=== PATIENT | female | born 1945 | race Asian ===

== ENCOUNTER 2018-06-17 05:12 | Inpatient (IN) | payer MEDICARE ==
[~2018-06-17] VITALS: Ht 157.5 cm; Wt 57.4 kg
[2018-06-17] VITALS (7 sets, daily range): BP systolic 123–153; BP diastolic 83–94
--- NOTE | 2018-06-17 05:15 | NUR ---
ED Nurse Note: Patient JEANNIE RA 30 from home c/o SOB since yesterday. SpO2 was at 92% on RA, EMS placed her on 4lpm via n/c and SpO2 at 97% now. Patient reports abdominal pain at her surgery site from last week. pt daughter on bedside. pt is yoruba speaking. noted with surgical incision on the abdomen. denies any pain. pt connected to monitor and vs recorded. seen by ermnura. rt on bedside doing the nebulization. will continue to monitor.
[2018-06-17] MEDS ORDERED: NORCO 5-325 TA1 EACH ORAL (05:18)
[2018-06-17] MEDS ORDERED: MS CONTIN100 MG ORAL (05:18)
[2018-06-17] MEDS ORDERED: Albuterol ud Inhalation HHN ONE (05:30)
--- NOTE | 2018-06-17 05:35 | NUR ---
ED Nurse Note: laboratory mechanical technician on bedside.
[2018-06-17 05:47] LABS: HEMATOCRIT 33.8 % (37.0-47.0); HEMOGLOBIN 11.1 G/DL (12.0-16.0); MEAN CORPUSCULAR VOLUME 89 FL (80-99); PLATELET COUNT 860 K/UL (150-450); WHITE BLOOD COUNT 12.4 K/UL (4.8-10.8)
[2018-06-17 05:59] LABS: BILIRUBIN, URINE 2+ (NEGATIVE); GLUCOSE, URINE (UA) NEGATIVE (NEGATIVE); KETONES,URINE 2+ (NEGATIVE); LEUKOCYTE ESTERASE ,URINE 1+ (NEGATIVE); NITRITE,URINE POSITIVE (NEGATIVE); PH,URINE 5 (4.5-8.0); PROTEIN,URINE 2+ (NEGATIVE); UROBILINOGEN,URINE 4 MG/DL (0.0-1.0)
[2018-06-17 06:02] LABS: ANION GAP 6 mmol/L (5-15); BLOOD UREA NITROGEN 14 mg/dL (7-18); CALCIUM 8.3 MG/DL (8.5-10.1); CARBON DIOXIDE 28 MMOL/L (21-32); CHLORIDE 97 MMOL/L (98-107); CREATININE 0.4 MG/DL (0.55-1.30); POTASSIUM 4.3 MMOL/L (3.5-5.1); SODIUM 131 MMOL/L (136-145)
--- NOTE | 2018-06-17 06:22 | Emergency Room Report ---
History of Present Illness General Chief Complaint: Dyspnea/Respdistress Source: Patient, Family Member Present Illness HPI This is a unfortunate 72-year-old Upper Sorbian speaking female with recent history of ovarian cancer with metastatic spread. She had surgery done on just here at [facility]. She is currently undergoing chemotherapy therapy. She also has pleural effusion bilaterally required thoracentesis with the last admission. She presents with chief complaint of shortness of breath. His is chronic but worse in the last couple days. Worse tonight. Per EMS observation was low 90% on room air. Better after oxygen. Worse with lying flat. Denies any fever or chills. Has chronic cough. Allergies: Coded Allergies: No Known Allergies (Unverified , 06/17/18) Patient History Past Medical History: see triage record, old chart reviewed Past Surgical History: other Pertinent Family History: none Social History: Denies: smoking Last Menstrual Period: CONCEPCION Now: No Immunizations: other Reviewed Nursing Documentation: PMH: Agreed; PSxH: Agreed Nursing Documentation-PMH Past Medical History: No History, Except For Hx Cardiac Problems: Yes Hx Cancer: Yes - ovarian Review of Systems Eye: Denies: eye pain, blurred vision ENT: Denies: ear pain, nose congestion, throat swelling Respiratory: Reports: shortness of breath; Denies: cough Cardiovascular: Denies: chest pain, palpitations Gastrointestinal: Reports: abdominal pain; Denies: diarrhea, nausea, vomiting Musculoskeletal: Denies: back pain, joint pain Skin: Denies: rash Neurological: Denies: headache, numbness Endocrine: Denies: increased thirst, increased urine Hematologic/Lymphatic: Denies: easy bruising All Other Systems: negative except mentioned in HPI Physical Exam Vital Signs Date Time Temp Pulse Resp B/P (MAP) Pulse Ox O2 Delivery O2 Flow Rate FiO2 06/17/18 05:12 117 22 138/89 97 Nasal Cannula 4.0 06/17/18 05:15 98.2 06/17/18 05:25 28 vitals with tachycardia Sp02 EP Interpretation: abnormal General Appearance: mild distress, cachetic, Chronically Ill Head: normocephalic, atraumatic Eyes: bilateral eye PERRL, bilateral eye EOMI ENT: hearing grossly normal, normal pharynx Neck: full range of motion, supple, no meningismus Respiratory: chest non-tender, respiratory distress, decreased breath sounds, rales Cardiovascular #1: regular rate, rhythm, no murmur, tachycardia Gastrointestinal: normal bowel sounds, non tender, no mass, no organomegaly, no bruit, non-distended, other - Abdominal incision site clean. Musculoskeletal: back normal, normal range of motion Neurologic: alert, oriented x3 Psychiatric: mood/affect normal Skin: warm/dry Procedures Critical Care Time Critical Care Time Critical care is mandated in this patient who presented with respiratory distress from large effusion. Patient require my urgent intervention to attenuate the risks of respiratory collapse which may lead to cardiovascular collapse and . Critical care time is 35 minutes excluding any reportable procedure. Critical care time included evaluation, multiple reevaluation, looking at old charts, interpreting laboratory and diagnostic data, discussing case with patient and family and consultants, and charting. Medical Decision Making Diagnostic Impression: Primary Impression: Respiratory distress Additional Impressions: Pleural effusion Ovarian carcinoma Qualified Codes: C56.9 - Malignant neoplasm of unspecified ovary ER Course Patient presents with respiratory distress secondary to pleural effusion bilaterally. She also has metastatic ovarian carcinoma. Even though BNP is low , chest x-ray showed a large pleural effusion. Is similar to previous admission. Patient more comfortable on oxygen. Will admit for further workup. I contacted Dr. Marr for admission. CT chest pending on this patient Lab Results Impression labs unremarkable EKG Diagnostic Results Rate: tachycardiac Rhythm: NSR ST Segments: other - NSST changes Rhythm Strip Diag. Results Rhythm Strip Time: 06:38 EP Interpretation: yes Rate: 120 Rhythm: NSR, no PVC's, no ectopy Chest X-Ray Diagnostic Results Chest X-Ray Diagnostic Results : Chest X-Ray Ordered: Yes # of Views/Limited/Complete: 1 View Indication: Shortness of Breath EP Interpretation: Yes Interpretation: no pneumothorax, other - Bilateral pleural effussion Last Vital Signs Date Time Temp Pulse Resp B/P (MAP) Pulse Ox O2 Delivery O2 Flow Rate FiO2 06/17/18 05:36 119 20 97 Nasal Cannula 2.0 28 06/17/18 05:15 98.2 138/89 Status: improved Disposition: ADMITTED INPATIENT Condition: Serious Referrals: NON PHYSICIAN (PCP) Juan David Bryan MD Jun 17, 2018 06:22
[2018-06-17 06:25] LABS: APPEARANCE,URINE SLIGHTLY CLOUDY; COLOR,URINE AMBER
[2018-06-17 06:31] LABS: ALANINE AMINOTRANSFERASE 53 U/L (12-78); ALBUMIN 1.3 G/DL (3.4-5.0); ALBUMIN/GLOBULIN RATIO 0.4 (1.0-2.7); ALKALINE PHOSPHATASE 1268 U/L (46-116); ASPARTATE AMINO TRANSFERASE 103 U/L (15-37); BILIRUBIN,TOTAL 1.1 MG/DL (0.2-1.0); CKMB 0.7 NG/ML (0.0-3.6); CREATINE KINASE 22 U/L (26-308)
[2018-06-17 06:39] LABS: BILIRUBIN,DIRECT 0.8 MG/DL (0.0-0.3)
[2018-06-17] MEDS ORDERED: Isovue-370 150ml vial INJ PRN (06:45)
--- NOTE | 2018-06-17 07:04 | NUR ---
ED Nurse Note: pt went to ct with tech.
--- NOTE | 2018-06-17 08:04 | NUR ---
ED Nurse Note: Report given to Ventura KIRBY of telemetry unit. Room is not ready yet. ER Charge nurse Cary so.
--- NOTE | 2018-06-17 08:48 | NUR ---
NURSE NOTES: Patient is transferred from ED and received report from [facility]. Patient is on stable condition. on O2 3L/min via NC. Inventory check done. No belongings noted. Daughter is at the bedside. Will continue to monitor.
--- NOTE | 2018-06-17 09:25 | NUR ---
NURSE NOTES: Talked with Dr. Stephenson. Admission orders read back and carried out.
[2018-06-17] MEDS ORDERED: Acetaminophen 500mg (ES) tab ORAL PRN (09:30)
[2018-06-17] MEDS ORDERED: Albuterol/Ipratropium 3ml neb HHN PRN (09:30)
--- NOTE | 2018-06-17 09:37 | Diagnostic Imaging Report ---
Indication: Chest pain Technique: Continuous helical transaxial imaging of the chest was obtained from the thoracic inlet to the upper abdomen during rapid intravenous contrast administration. Arterial phase of enhancement obtained. Coronal 2-D reformats were also obtained and maximum intensity projection images in multiple planes. Study obtained in a Siemens sensation [address] Automatic Exposure Control was utilized. Total Dose length Product (DLP): 836.[address] Dose Index Volume (CTDIvol): 25.79 mGy Comparison: None Findings: The pulmonary artery is well opacified and shows no filling defects. There is no adenopathy, pleural or pericardial effusions are identified. There is no aortic dissection or aneurysm identified within the chest. Large bilateral pleural effusions are present with collapse atelectasis of both lower lobes. Superimposed pneumonia or consolidation is not excludable. Small amount air noted in the pulmonary artery likely related to intravenous injection. There is a mild ascites in the upper abdomen demonstrated. Gallstones are present. There is wall thickening of the gallbladder nonspecific in nature. Anasarca noted. IMPRESSION: No evidence of pulmonary embolus, aortic dissection or aneurysm. Moderate to large bilateral pleural effusions with associated atelectasis of portions of the lungs bilaterally. Superimposed pneumonia not excluded. Ascites. Cholelithiasis with wall thickening. Cholecystitis not excluded. Correlate clinically Anasarca [facility] has communicated the preliminary results to the Emergency Department. Their findings are largely concordant with this report. The CT scanner at [facility] is accredited by the [employer] and the scans are performed using dose optimization techniques as appropriate to a performed exam including Automatic Exposure control.
--- NOTE | 2018-06-17 11:20 | Diagnostic Imaging Report ---
Indication: Dyspnea Comparison: None A single view chest radiograph was obtained. Findings: Moderate pulmonary edema demonstrated with the prominent vascularity and moderate to large bilateral pleural effusions. Cardiac border is difficult to see given the pleural effusions. Please refer to the CTA chest report. IMPRESSION: Moderate to large bilateral pleural effusions. Pulmonary edema.
--- NOTE | 2018-06-17 14:35 | NUR ---
NURSE NOTES: Seen by Dr. Patel and new orders read back and carried out.
--- NOTE | 2018-06-17 14:44 | Consultation ---
History of Present Illness General Date patient seen: Jun 17, 2018 Time patient seen: 14:40 Chief Complaint: Dyspnea/Respdistress Reason for Consultation: Bilateral pleural effusions Present Illness HPI 72 y/o female w/ recently diagnosed ovarian cancer s/p resection brought in for respiratory distress. NOted with b/l effusion on CT chest. Per family at bedside. One week ago had thoracentesis and paracentesis. 3 days ago another thoracentesis. CT chest shows large bilateral effusions. Possibly noted to have malignant ascites but cytology of pleural fluids unkown. No fever or chills. Has not started chemotherapy. Allergies: Coded Allergies: No Known Allergies (Unverified , 06/17/18) Medication History Scheduled Morphine Sulfate (Morphine Sulfate ER), Unknown Dose ORAL EVERY 12 HOURS, ( Reported) Scheduled PRN Hydrocodone Bit/Acetaminophen 5-325* ([place] 5-325*), Unknown Dose ORAL Q4H PRN for For Pain, (Reported) Patient History Limited by: language barrier History Provided By: Family Member, Medical Record Healthcare decision maker Resuscitation status Full Code Advanced Directive on File No Past Medical/Surgical History Past Medical/Surgical History: (1) Ovarian carcinoma Review of Systems All Other Systems: negative except mentioned in HPI Physical Exam General Appearance: no apparent distress, alert HEENT: normocephalic, atraumatic Neck: supple Respiratory/Chest: decreased breath sounds Cardiovascular/Chest: normal rate, regular rhythm Abdomen: non tender, soft Extremities: no edema Last 24 Hour Vital Signs Date Time Temp Pulse Resp B/P (MAP) Pulse Ox O2 Delivery O2 Flow Rate FiO2 06/17/18 12:00 97.3 128 22 137/88 (104) 94 06/17/18 10:01 Nasal Cannula 3.0 Nasal Cannula 3.0 06/17/18 09:00 98.0 100 22 132/84 (100) 94 06/17/18 08:38 97.5 126 15 123/89 96 Nasal Cannula 2.0 06/17/18 08:05 97.5 126 15 123/89 96 Nasal Cannula 2.0 06/17/18 06:29 97.1 120 21 153/83 95 Nasal Cannula 2.0 06/17/18 05:36 119 20 97 Nasal Cannula 2.0 28 06/17/18 05:25 116 20 Nasal Cannula 2.0 28 06/17/18 05:25 116 20 96 Nasal Cannula 2.0 28 06/17/18 05:15 98.2 117 18 138/89 97 Nasal Cannula 2.0 06/17/18 05:15 117 22 Nasal Cannula 2.0 06/17/18 05:12 117 22 138/89 97 Nasal Cannula 4.0 Intake and Output 06/16/18 06/17/18 19:00 07:00 Output Total 350 ml Balance -350 ml Output Urine Total 350 ml # Voids 1 Laboratory Tests Test 06/17/18 05:07 06/17/18 05:36 White Blood Count 12.4 K/UL (4.8-10.8) H Red Blood Count 3.80 M/UL (4.20-5.40) L Hemoglobin 11.1 G/DL (12.0-16.0) L Hematocrit 33.8 % (37.0-47.0) L Mean Corpuscular Volume 89 FL (80-99) Mean Corpuscular Hemoglobin 29.2 PG (27.0-31.0) Mean Corpuscular Hemoglobin Concent 32.8 G/DL (32.0-36.0) Red Cell Distribution Width 14.0 % (11.6-14.8) Platelet Count 860 K/UL (150-450) H Mean Platelet Volume 4.7 FL (6.5-10.1) L Neutrophils (%) (Auto) % (45.0-75.0) Lymphocytes (%) (Auto) % (20.0-45.0) Monocytes (%) (Auto) % (1.0-10.0) Eosinophils (%) (Auto) % (0.0-3.0) Basophils (%) (Auto) % (0.0-2.0) Differential Total Cells Counted 100 Neutrophils % (Manual) 80 % (45-75) H Lymphocytes % (Manual) 5 % (20-45) L Monocytes % (Manual) 10 % (1-10) Eosinophils % (Manual) 3 % (0-3) Basophils % (Manual) 1 % (0-2) Band Neutrophils 1 % (0-8) Platelet Estimate Increased H Platelet Morphology Normal Stomatocytes Occasional Prothrombin Time 10.4 SEC (9.30-11.50) Prothromb Time International Ratio 1.0 (0.9-1.1) Activated Partial Thromboplast Time 28 SEC (23-33) Sodium Level 131 MMOL/L (136-145) L Potassium Level 4.3 MMOL/L (3.5-5.1) Chloride Level 97 MMOL/L (98-107) L Carbon Dioxide Level 28 MMOL/L (21-32) Anion Gap 6 mmol/L (5-15) Blood Urea Nitrogen 14 mg/dL (7-18) Creatinine 0.4 MG/DL (0.55-1.30) L Estimat Glomerular Filtration Rate mL/min (>60) Glucose Level 125 MG/DL (74-106) H Calcium Level 8.3 MG/DL (8.5-10.1) L Total Bilirubin 1.1 MG/DL (0.2-1.0) H Direct Bilirubin 0.8 MG/DL (0.0-0.3) H Aspartate Amino Transf (AST/SGOT) 103 U/L (15-37) H Alanine Aminotransferase (ALT/SGPT) 53 U/L (12-78) Alkaline Phosphatase 1268 U/L (46-116) H Total Creatine Kinase 22 U/L (26-308) L Creatine Kinase MB 0.7 NG/ML (0.0-3.6) Creatine Kinase MB Relative Index 3.1 Troponin I 0.006 ng/mL (0.000-0.056) Pro-B-Type Natriuretic Peptide 194 pg/mL (0-125) H Total Protein 5.0 G/DL (6.4-8.2) L Albumin 1.3 G/DL (3.4-5.0) L Globulin 3.7 g/dL Albumin/Globulin Ratio 0.4 (1.0-2.7) L Urine Color Dulce Urine Appearance Slightly cloudy Urine pH 5 (4.5-8.0) Urine Specific [place] 1.025 (1.005-1.035) Urine Protein 2+ (NEGATIVE) H Urine Glucose (UA) Negative (NEGATIVE) Urine Ketones 2+ (NEGATIVE) H Urine Blood 1+ (NEGATIVE) H Urine Nitrite Positive (NEGATIVE) H Urine Bilirubin 2+ (NEGATIVE) H Urine Ictotest Positive (NEGATIVE) Urine Urobilinogen 4 MG/DL (0.0-1.0) H Urine Leukocyte Esterase 1+ (NEGATIVE) H Urine RBC 0-2 /HPF (0 - 2) Urine WBC 0-2 /HPF (0 - 2) Urine Squamous Epithelial Cells Few /LPF (NONE/OCC) Urine Amorphous Sediment Moderate /LPF (NONE) H Urine Bacteria Few /HPF (NONE) Urine Yeast Few /HPF (NONE) H Height (Feet): 5 Height (Inches): 2.00 Weight (Pounds): 130 Medications Current Medications Medications (Trade) Dose Ordered Sig/Susana Route PRN Reason Start Time Stop Time Status Last Admin Dose Admin Acetaminophen (Tylenol) 500 mg Q4H PRN ORAL Mild Pain/Temp > 100.5 06/17/18 09:30 07/17/18 09:29 Albuterol/ Ipratropium (Albuterol/ Ipratropium) 3 ml Q4H PRN HHN Shortness of Breath 06/17/18 09:30 06/22/18 09:29 Iopamidol (Isovue-370 150ml) 150 ml NOW PRN INJ Radiology Procedure 06/17/18 06:45 06/19/18 06:[address] chest with large bilateral pleural effusions Assessment/Plan Assessment/Plan Problem List: 1. Shortness of breath 2. Large bilateral pleural effusions 3. ovarian cancer s/p resection with likely malignant ascites and presumed malignant effusions Plan: -thoracentesis eval with pleural fluid studies -if not infected will likely have pleurx placement on at least one side when reaccumulates until can start chemo -abdominal US eval ascites Case d/w Phillip Blackburn MD Jun 17, 2018 14:44
--- NOTE | 2018-06-17 17:55 | Cardiology Report ---
APPROVED REPORT EKG Measurement Heart [id number] Sinus tachycardia Cannot rule out Anterior infarct, age undetermined Abnormal ECG
--- NOTE | 2018-06-17 18:04 | Consultation ---
Consult Note Consult Note asked to eval for low Na and Proteinuria and Low serum albumin his is a unfortunate 72-year-old Japanese speaking female with recent history of ovarian cancer with metastatic spread. She had surgery done on just here at [facility]. She is currently undergoing chemotherapy therapy. She also has pleural effusion bilaterally required thoracentesis with the last admission. She presents with chief complaint of shortness of breath. His is chronic but worse in the last couple days. Worse tonight. Per EMS observation was low 90% on room air. Better after oxygen. Worse with lying flat. Denies any fever or chills. Has chronic cough. No Known Allergies (Unverified , 06/17/18) Past Medical History: No History, Except For Hx Cardiac Problems: Yes Hx Cancer: Yes - ovarian examined data reviewed Assessment/Plan HypoNatremia due to Edematous state HypoAlbuminemia and proteinuria Respiratory distress Pleural effusion likely malignant ascitis Ovarian carcinoma landeros thoracentesis 24 h urine protein coreg monitor labs Jae Walker MD Jun 17, 2018 18:04
--- NOTE | 2018-06-17 19:52 | NUR ---
HAND-OFF: Report given to [facility]. Patient asleep. No acute distress/SOB noted. Endorsed plan of care.
--- NOTE | 2018-06-17 19:52 | NUR ---
NURSE NOTES: Report received from [facility]. Pt is lying comfortably in semi-fowlers with no signs of distress. Pt is A+Ox4 and denies pain/SOB. Respirations are even and unlabored on 2 L NC. IV sites are patent, intact, and saline locked. [place] is in place, patent, and draining to gravity at foot of bed. Bed is at lowest position, brakes engaged, siderails x2, bed alarm on, and call light within reach. Pt is in stable condition at this time; will continue to monitor.
--- NOTE | 2018-06-17 20:40 | NUR ---
CASE MANAGEMENT: REVIEW 72/M BIBA FROM HOME CC: RESP DISTRESS SI: PLEURAL EFFUSION . T 97.1 HR 120 RR 22 BP 153/83 SAT 95% NC/4L WBC 12.4 NA 131 ALK PHOS 1268 IS: LASIX IV X1 ALBUTEROL HHN X1 PATIENT ADMITTED TO TELEMETRY UNIT 06/17/2018 DCP: PATIENT IS FROM HOME
--- NOTE | 2018-06-17 21:28 | Cardiology Progress Note ---
Assessment/Plan Assessment/Plan The patient is seen and examined, full consult note will be dictated. Objective Last 24 Hour Vital Signs Date Time Temp Pulse Resp B/P (MAP) Pulse Ox O2 Delivery O2 Flow Rate FiO2 06/17/18 21:12 119 131/91 06/17/18 20:00 97.6 120 19 131/91 (104) 97 06/17/18 20:00 119 06/17/18 16:00 119 06/17/18 16:00 98.7 123 21 132/94 (107) 95 06/17/18 12:00 97.3 128 22 137/88 (104) 94 06/17/18 12:00 121 06/17/18 10:01 Nasal Cannula 3.0 Nasal Cannula 3.0 06/17/18 09:00 98.0 100 22 132/84 (100) 94 06/17/18 08:38 97.5 126 15 123/89 96 Nasal Cannula 2.0 06/17/18 08:05 97.5 126 15 123/89 96 Nasal Cannula 2.0 06/17/18 06:29 97.1 120 21 153/83 95 Nasal Cannula 2.0 06/17/18 05:36 119 20 97 Nasal Cannula 2.0 28 06/17/18 05:25 116 20 Nasal Cannula 2.0 28 06/17/18 05:25 116 20 96 Nasal Cannula 2.0 28 06/17/18 05:15 98.2 117 18 138/89 97 Nasal Cannula 2.0 06/17/18 05:15 117 22 Nasal Cannula 2.0 06/17/18 05:12 117 22 138/89 97 Nasal Cannula 4.0 Intake and Output 06/16/18 06/17/18 18:59 06:59 Output Total 350 ml Balance -350 ml Output Urine Total 350 ml # Voids 1 Laboratory Tests Test 06/17/18 05:07 06/17/18 05:36 White Blood Count 12.4 K/UL (4.8-10.8) H Red Blood Count 3.80 M/UL (4.20-5.40) L Hemoglobin 11.1 G/DL (12.0-16.0) L Hematocrit 33.8 % (37.0-47.0) L Mean Corpuscular Volume 89 FL (80-99) Mean Corpuscular Hemoglobin 29.2 PG (27.0-31.0) Mean Corpuscular Hemoglobin Concent 32.8 G/DL (32.0-36.0) Red Cell Distribution Width 14.0 % (11.6-14.8) Platelet Count 860 K/UL (150-450) H Mean Platelet Volume 4.7 FL (6.5-10.1) L Neutrophils (%) (Auto) % (45.0-75.0) Lymphocytes (%) (Auto) % (20.0-45.0) Monocytes (%) (Auto) % (1.0-10.0) Eosinophils (%) (Auto) % (0.0-3.0) Basophils (%) (Auto) % (0.0-2.0) Differential Total Cells Counted 100 Neutrophils % (Manual) 80 % (45-75) H Lymphocytes % (Manual) 5 % (20-45) L Monocytes % (Manual) 10 % (1-10) Eosinophils % (Manual) 3 % (0-3) Basophils % (Manual) 1 % (0-2) Band Neutrophils 1 % (0-8) Platelet Estimate Increased H Platelet Morphology Normal Stomatocytes Occasional Prothrombin Time 10.4 SEC (9.30-11.50) Prothromb Time International Ratio 1.0 (0.9-1.1) Activated Partial Thromboplast Time 28 SEC (23-33) Sodium Level 131 MMOL/L (136-145) L Potassium Level 4.3 MMOL/L (3.5-5.1) Chloride Level 97 MMOL/L (98-107) L Carbon Dioxide Level 28 MMOL/L (21-32) Anion Gap 6 mmol/L (5-15) Blood Urea Nitrogen 14 mg/dL (7-18) Creatinine 0.4 MG/DL (0.55-1.30) L Estimat Glomerular Filtration Rate mL/min (>60) Glucose Level 125 MG/DL (74-106) H Calcium Level 8.3 MG/DL (8.5-10.1) L Total Bilirubin 1.1 MG/DL (0.2-1.0) H Direct Bilirubin 0.8 MG/DL (0.0-0.3) H Aspartate Amino Transf (AST/SGOT) 103 U/L (15-37) H Alanine Aminotransferase (ALT/SGPT) 53 U/L (12-78) Alkaline Phosphatase 1268 U/L (46-116) H Total Creatine Kinase 22 U/L (26-308) L Creatine Kinase MB 0.7 NG/ML (0.0-3.6) Creatine Kinase MB Relative Index 3.1 Troponin I 0.006 ng/mL (0.000-0.056) C-Reactive Protein, Quantitative 16.3 mg/dL (0.00-0.90) H Pro-B-Type Natriuretic Peptide 194 pg/mL (0-125) H Total Protein 5.0 G/DL (6.4-8.2) L Albumin 1.3 G/DL (3.4-5.0) L Globulin 3.7 g/dL Albumin/Globulin Ratio 0.4 (1.0-2.7) L Urine Color Dulce Urine Appearance Slightly cloudy Urine pH 5 (4.5-8.0) Urine Specific [place] 1.025 (1.005-1.035) Urine Protein 2+ (NEGATIVE) H Urine Glucose (UA) Negative (NEGATIVE) Urine Ketones 2+ (NEGATIVE) H Urine Blood 1+ (NEGATIVE) H Urine Nitrite Positive (NEGATIVE) H Urine Bilirubin 2+ (NEGATIVE) H Urine Ictotest Positive (NEGATIVE) Urine Urobilinogen 4 MG/DL (0.0-1.0) H Urine Leukocyte Esterase 1+ (NEGATIVE) H Urine RBC 0-2 /HPF (0 - 2) Urine WBC 0-2 /HPF (0 - 2) Urine Squamous Epithelial Cells Few /LPF (NONE/OCC) Urine Amorphous Sediment Moderate /LPF (NONE) H Urine Bacteria Few /HPF (NONE) Urine Yeast Few /HPF (NONE) H Andrew Man MD Jun 17, 2018 21:28
--- NOTE | 2018-06-17 21:43 | Consultation ---
History of Present Illness General Chief Complaint: Dyspnea/Respdistress Reason for Consultation: Bilateral pleural effusions Present Illness Allergies: Coded Allergies: No Known Allergies (Unverified , 06/17/18) Medication History Scheduled Morphine Sulfate (Morphine Sulfate ER), Unknown Dose ORAL EVERY 12 HOURS, ( Reported) Scheduled PRN Hydrocodone Bit/Acetaminophen 5-325* ([place] 5-325*), Unknown Dose ORAL Q4H PRN for For Pain, (Reported) Patient History Healthcare decision maker Resuscitation status Full Code Advanced Directive on File No Physical Exam Last 24 Hour Vital Signs Date Time Temp Pulse Resp B/P (MAP) Pulse Ox O2 Delivery O2 Flow Rate FiO2 06/17/18 21:12 119 131/91 06/17/18 20:00 97.6 120 19 131/91 (104) 97 06/17/18 20:00 119 06/17/18 16:00 119 06/17/18 16:00 98.7 123 21 132/94 (107) 95 06/17/18 12:00 97.3 128 22 137/88 (104) 94 06/17/18 12:00 121 06/17/18 10:01 Nasal Cannula 3.0 Nasal Cannula 3.0 06/17/18 09:00 98.0 100 22 132/84 (100) 94 06/17/18 08:38 97.5 126 15 123/89 96 Nasal Cannula 2.0 06/17/18 08:05 97.5 126 15 123/89 96 Nasal Cannula 2.0 06/17/18 06:29 97.1 120 21 153/83 95 Nasal Cannula 2.0 06/17/18 05:36 119 20 97 Nasal Cannula 2.0 28 06/17/18 05:25 116 20 Nasal Cannula 2.0 28 06/17/18 05:25 116 20 96 Nasal Cannula 2.0 28 06/17/18 05:15 98.2 117 18 138/89 97 Nasal Cannula 2.0 06/17/18 05:15 117 22 Nasal Cannula 2.0 06/17/18 05:12 117 22 138/89 97 Nasal Cannula 4.0 Intake and Output 06/16/18 06/17/18 18:59 06:59 Output Total 350 ml Balance -350 ml Output Urine Total 350 ml # Voids 1 Laboratory Tests Test 06/17/18 05:07 06/17/18 05:36 White Blood Count 12.4 K/UL (4.8-10.8) H Red Blood Count 3.80 M/UL (4.20-5.40) L Hemoglobin 11.1 G/DL (12.0-16.0) L Hematocrit 33.8 % (37.0-47.0) L Mean Corpuscular Volume 89 FL (80-99) Mean Corpuscular Hemoglobin 29.2 PG (27.0-31.0) Mean Corpuscular Hemoglobin Concent 32.8 G/DL (32.0-36.0) Red Cell Distribution Width 14.0 % (11.6-14.8) Platelet Count 860 K/UL (150-450) H Mean Platelet Volume 4.7 FL (6.5-10.1) L Neutrophils (%) (Auto) % (45.0-75.0) Lymphocytes (%) (Auto) % (20.0-45.0) Monocytes (%) (Auto) % (1.0-10.0) Eosinophils (%) (Auto) % (0.0-3.0) Basophils (%) (Auto) % (0.0-2.0) Differential Total Cells Counted 100 Neutrophils % (Manual) 80 % (45-75) H Lymphocytes % (Manual) 5 % (20-45) L Monocytes % (Manual) 10 % (1-10) Eosinophils % (Manual) 3 % (0-3) Basophils % (Manual) 1 % (0-2) Band Neutrophils 1 % (0-8) Platelet Estimate Increased H Platelet Morphology Normal Stomatocytes Occasional Prothrombin Time 10.4 SEC (9.30-11.50) Prothromb Time International Ratio 1.0 (0.9-1.1) Activated Partial Thromboplast Time 28 SEC (23-33) Sodium Level 131 MMOL/L (136-145) L Potassium Level 4.3 MMOL/L (3.5-5.1) Chloride Level 97 MMOL/L (98-107) L Carbon Dioxide Level 28 MMOL/L (21-32) Anion Gap 6 mmol/L (5-15) Blood Urea Nitrogen 14 mg/dL (7-18) Creatinine 0.4 MG/DL (0.55-1.30) L Estimat Glomerular Filtration Rate mL/min (>60) Glucose Level 125 MG/DL (74-106) H Calcium Level 8.3 MG/DL (8.5-10.1) L Total Bilirubin 1.1 MG/DL (0.2-1.0) H Direct Bilirubin 0.8 MG/DL (0.0-0.3) H Aspartate Amino Transf (AST/SGOT) 103 U/L (15-37) H Alanine Aminotransferase (ALT/SGPT) 53 U/L (12-78) Alkaline Phosphatase 1268 U/L (46-116) H Total Creatine Kinase 22 U/L (26-308) L Creatine Kinase MB 0.7 NG/ML (0.0-3.6) Creatine Kinase MB Relative Index 3.1 Troponin I 0.006 ng/mL (0.000-0.056) C-Reactive Protein, Quantitative 16.3 mg/dL (0.00-0.90) H Pro-B-Type Natriuretic Peptide 194 pg/mL (0-125) H Total Protein 5.0 G/DL (6.4-8.2) L Albumin 1.3 G/DL (3.4-5.0) L Globulin 3.7 g/dL Albumin/Globulin Ratio 0.4 (1.0-2.7) L Urine Color Dulce Urine Appearance Slightly cloudy Urine pH 5 (4.5-8.0) Urine Specific Kittrell 1.025 (1.005-1.035) Urine Protein 2+ (NEGATIVE) H Urine Glucose (UA) Negative (NEGATIVE) Urine Ketones 2+ (NEGATIVE) H Urine Blood 1+ (NEGATIVE) H Urine Nitrite Positive (NEGATIVE) H Urine Bilirubin 2+ (NEGATIVE) H Urine Ictotest Positive (NEGATIVE) Urine Urobilinogen 4 MG/DL (0.0-1.0) H Urine Leukocyte Esterase 1+ (NEGATIVE) H Urine RBC 0-2 /HPF (0 - 2) Urine WBC 0-2 /HPF (0 - 2) Urine Squamous Epithelial Cells Few /LPF (NONE/OCC) Urine Amorphous Sediment Moderate /LPF (NONE) H Urine Bacteria Few /HPF (NONE) Urine Yeast Few /HPF (NONE) H Height (Feet): 5 Height (Inches): 2.00 Weight (Pounds): 130 Medications Current Medications Medications (Trade) Dose Ordered Sig/Susana Route PRN Reason Start Time Stop Time Status Last Admin Dose Admin Acetaminophen (Tylenol) 500 mg Q4H PRN ORAL Mild Pain/Temp > 100.5 06/17/18 09:30 07/17/18 09:29 06/17/18 18:21 Albuterol/ Ipratropium (Albuterol/ Ipratropium) 3 ml Q4H PRN HHN Shortness of Breath 06/17/18 09:30 06/22/18 09:29 Carvedilol (Coreg) 3.125 mg EVERY 12 HOURS ORAL 06/17/18 21:00 07/17/18 20:59 06/17/18 21:12 Furosemide (Lasix) 20 mg DAILY IV 06/18/18 09:00 07/18/18 08:59 Iopamidol (Isovue-370 150ml) 150 ml NOW PRN INJ Radiology Procedure 06/17/18 06:45 06/19/18 06:39 Pantoprazole (Protonix) 40 mg DAILY ORAL 06/18/18 09:00 07/18/18 08:59 Assessment/Plan Assessment/Plan Hematology/Oncology Consultation Requesting MD: Vane Stephenson Date of Service: 06/17/18 Reason for consultation: Leukocytosis, Thrombocytosis, Anemia and Ovarian cancer HPI : This is a 72 y/o female w/ recently diagnosed ovarian cancer s/p resection brought in for respiratory distress. Noted with b/l effusion on CT chest. Per family at bedside. One week ago had thoracentesis and paracentesis. 3 days ago another thoracentesis. CT chest shows large bilateral effusions. Possibly noted to have malignant ascites but cytology of pleural fluids unkown. No fever or chills. Has not started chemotherapy. Hematology/Oncology was consulted for Leukocytosis, Thrombocytosis, and Anemia, wbc 12, hgb 11, plt 860. Patient History Limited by: language barrier History Provided By: Family Member, Medical Record Healthcare decision maker Resuscitation status Full Code Advanced Directive on File No Past Medical/Surgical History: (1) Ovarian carcinoma Social Hx: none Family history: none Allergies:No Known Allergies Physical Exam General Appearance: no apparent distress, alert HEENT: normocephalic, atraumatic Neck: supple Respiratory/Chest: decreased breath sounds Cardiovascular/Chest: normal rate, regular rhythm Abdomen: non tender, soft Extremities: no edema Laboratory Tests Test 06/17/18 05:07 06/17/18 05:36 White Blood Count 12.4 K/UL (4.8-10.8) H Red Blood Count 3.80 M/UL (4.20-5.40) L Hemoglobin 11.1 G/DL (12.0-16.0) L Hematocrit 33.8 % (37.0-47.0) L Mean Corpuscular Volume 89 FL (80-99) Mean Corpuscular Hemoglobin 29.2 PG (27.0-31.0) Mean Corpuscular Hemoglobin Concent 32.8 G/DL (32.0-36.0) Red Cell Distribution Width 14.0 % (11.6-14.8) Platelet Count 860 K/UL (150-450) H Mean Platelet Volume 4.7 FL (6.5-10.1) L Neutrophils (%) (Auto) % (45.0-75.0) Lymphocytes (%) (Auto) % (20.0-45.0) Monocytes (%) (Auto) % (1.0-10.0) Eosinophils (%) (Auto) % (0.0-3.0) Basophils (%) (Auto) % (0.0-2.0) Differential Total Cells Counted 100 Neutrophils % (Manual) 80 % (45-75) H Lymphocytes % (Manual) 5 % (20-45) L Monocytes % (Manual) 10 % (1-10) Eosinophils % (Manual) 3 % (0-3) Basophils % (Manual) 1 % (0-2) Band Neutrophils 1 % (0-8) Platelet Estimate Increased H Platelet Morphology Normal Stomatocytes Occasional Prothrombin Time 10.4 SEC (9.30-11.50) Prothromb Time International Ratio 1.0 (0.9-1.1) Activated Partial Thromboplast Time 28 SEC (23-33) Sodium Level 131 MMOL/L (136-145) L Potassium Level 4.3 MMOL/L (3.5-5.1) Chloride Level 97 MMOL/L (98-107) L Carbon Dioxide Level 28 MMOL/L (21-32) Anion Gap 6 mmol/L (5-15) Blood Urea Nitrogen 14 mg/dL (7-18) Creatinine 0.4 MG/DL (0.55-1.30) L Estimat Glomerular Filtration Rate mL/min (>60) Glucose Level 125 MG/DL (74-106) H Calcium Level 8.3 MG/DL (8.5-10.1) L Total Bilirubin 1.1 MG/DL (0.2-1.0) H Direct Bilirubin 0.8 MG/DL (0.0-0.3) H Aspartate Amino Transf (AST/SGOT) 103 U/L (15-37) H Alanine Aminotransferase (ALT/SGPT) 53 U/L (12-78) Alkaline Phosphatase 1268 U/L (46-116) H Total Creatine Kinase 22 U/L (26-308) L Creatine Kinase MB 0.7 NG/ML (0.0-3.6) Creatine Kinase MB Relative Index 3.1 Troponin I 0.006 ng/mL (0.000-0.056) Pro-B-Type Natriuretic Peptide 194 pg/mL (0-125) H Total Protein 5.0 G/DL (6.4-8.2) L Albumin 1.3 G/DL (3.4-5.0) L Globulin 3.7 g/dL Albumin/Globulin Ratio 0.4 (1.0-2.7) L Urine Color Dulce Urine Appearance Slightly cloudy Urine pH 5 (4.5-8.0) Urine Specific Kittrell 1.025 (1.005-1.035) Urine Protein 2+ (NEGATIVE) H Urine Glucose (UA) Negative (NEGATIVE) Urine Ketones 2+ (NEGATIVE) H Urine Blood 1+ (NEGATIVE) H Urine Nitrite Positive (NEGATIVE) H Urine Bilirubin 2+ (NEGATIVE) H Urine Ictotest Positive (NEGATIVE) Urine Urobilinogen 4 MG/DL (0.0-1.0) H Urine Leukocyte Esterase 1+ (NEGATIVE) H Urine RBC 0-2 /HPF (0 - 2) Urine WBC 0-2 /HPF (0 - 2) Urine Squamous Epithelial Cells Few /LPF (NONE/OCC) Urine Amorphous Sediment Moderate /LPF (NONE) H Urine Bacteria Few /HPF (NONE) Urine Yeast Few /HPF (NONE) H Current Medications Medications (Trade) Dose Ordered Sig/Susana Route PRN Reason Start Time Stop Time Status Last Admin Dose Admin Acetaminophen (Tylenol) 500 mg Q4H PRN ORAL Mild Pain/Temp > 100.5 06/17/18 09:30 07/17/18 09:29 Albuterol/ Ipratropium (Albuterol/ Ipratropium) 3 ml Q4H PRN HHN Shortness of Breath 06/17/18 09:30 06/22/18 09:29 Iopamidol (Isovue-370 150ml) 150 ml NOW PRN INJ Radiology Procedure 06/17/18 06:45 06/19/18 06:39 Assessment/Recommendations # Thrombocytosis - likely related to reactive process, ovarian cancer --> Continue to monitor for improvement -->Trend CBC as needed --> If continues to be elevated, consider to send for NOMI-2 --> Smear reviewed and no abnormalities noted. *Under manual differential # ovarian cancer s/p resection with likely malignant ascites and presumed malignant effusions -->review outside imaging and treatments patient has received -->outside labs and pathology to be reviewed -->defer to outpatient oncologist for further care, patient requires followup # Anemia of chronic disease (or of iron deficiency) due to underlying chronic medical issues, multifactorial -->Anemia workup has been ordered -->No evidence of hemolysis is noted, peripheral smear has been reviewed. -->Hgb goal >7. Transfuse prn. -->Epogen or iron at this time is not particularly indicated -->Medications have been reviewed # Leukocytosis. Likely related to underlying infection versus reactive process. --> Peripheral has been ordered, results are pending --> Medications have been reviewed --> Imaging has been reviewed -->Blood cultures and urine cultures prn --> has been started on abx, empiric treatment # Shortness of breath # Large bilateral pleural effusions -->-thoracentesis eval with pleural fluid studies The timing of this note does not necessarily reflect the time of the patient was seen. Greatly appreciate consultation! Keegan Flores MD Jun 17, 2018 21:43
[2018-06-18] VITALS: BP 124/88
[2018-06-18 04:00] VITALS: BP 133/85
--- NOTE | 2018-06-18 06:00 | History and Physical Report ---
DATE OF ADMISSION: 06/17/2018 HISTORY OF PRESENT ILLNESS: The patient is admitted for respiratory distress, found to have large pleural effusion. The patient has recent diagnosis of ovarian cancer, status post recent history of hysterectomy and removal of the ovaries, status post bilateral thoracocentesis approximately 3 weeks ago. The patient comes in with large effusion bilaterally and a borderline elevated troponin. The patient has been complaining of shortness of breath. Denies wheezing. PAST MEDICAL HISTORY: Ovarian cancer; pleural effusion, recurrent; GERD; and weight loss. PAST SURGICAL HISTORY: Appendectomy, hysterectomy, ovaries removed. Hysterectomy and ovaries removal happened two weeks ago at . ALLERGIES: No known allergies. MEDICATIONS: None. FAMILY HISTORY: Noncontributory. SOCIAL HISTORY: No history of smoking. No history of alcohol or illicit drugs. REVIEW OF SYSTEMS: The patient does have generalized weakness.HEENT: Denies headaches. RESPIRATORY: Denies shortness of breath. Denies cough. CARDIOVASCULAR: Denies chest pain. Does have orthopnea. GASTROINTESTINAL: Denies nausea, vomiting, or diarrhea. PHYSICAL EXAMINATION: VITAL SIGNS: Temperature is 97.3, pulse is 128, and blood pressure 137/88. HEENT: PERRLA. NECK: Supple. No lymphadenopathy. CHEST: Bilateral rhonchi. CARDIOVASCULAR: Regular rate and rhythm. GASTROINTESTINAL: Soft. Distended. Positive bowel sounds. The patient has recent surgical scar. EXTREMITIES: 1+ edema. NEUROLOGIC: The patient does have generalized weakness. LABORATORY DATA: WBC of 12.4, hemoglobin 11.1, and platelets of 260. Sodium 131, potassium 4.3, BUN of 14, creatinine 0.4, glucose of 125. AST of 103, ALT of 53, alkaline phosphatase 1268. Total bilirubin 1.1. ASSESSMENT AND PLAN: Large effusion bilaterally, respiratory insufficiency due to pleural effusion, could be due to ovarian cancer, recurrent. Most likely thoracocentesis. I have asked Dr. Breaux, Dr. Franklin, Dr. Keegan Flores, Dr. Walker, and Dr. Man to see the patient for the fluid management as well as pain management as well as to rule out any infectious etiology as well as borderline elevated troponin. Vane Stephenson M.D. DR: [facility]ISE JOB#: [id number] CC:
[2018-06-18 06:46] LABS: HEMATOCRIT 32.5 % (37.0-47.0); HEMOGLOBIN 10.9 G/DL (12.0-16.0); MEAN CORPUSCULAR VOLUME 88 FL (80-99); PLATELET COUNT 863 K/UL (150-450); RED CELL DISTRIBUTION WIDTH 13.8 % (11.6-14.8); WHITE BLOOD COUNT 14.5 K/UL (4.8-10.8)
[2018-06-18 07:06] LABS: CREATINE KINASE 12 U/L (26-308); GAMMA GLUTAMYL TRANSPEPTIDASE 948 U/L (5-85); PHOSPHORUS 3.6 MG/DL (2.5-4.9)
[2018-06-18 07:10] LABS: ALANINE AMINOTRANSFERASE 46 U/L (12-78); ALBUMIN 1.3 G/DL (3.4-5.0); ALBUMIN/GLOBULIN RATIO 0.4 (1.0-2.7); ALKALINE PHOSPHATASE 1143 U/L (46-116); ANION GAP 8 mmol/L (5-15); ASPARTATE AMINO TRANSFERASE 71 U/L (15-37); BILIRUBIN,TOTAL 0.8 MG/DL (0.2-1.0); BLOOD UREA NITROGEN 16 mg/dL (7-18); CALCIUM 7.7 MG/DL (8.5-10.1); CARBON DIOXIDE 28 MMOL/L (21-32); CHLORIDE 97 MMOL/L (98-107); CHOLESTEROL 187 MG/DL (< 200); CREATININE 0.4 MG/DL (0.55-1.30); FERRITIN 739 NG/ML (8-388); HDL CHOLESTEROL 33 MG/DL (40-60); LACTATE DEHYDROGENASE 151 U/L (81-234); POTASSIUM 3.7 MMOL/L (3.5-5.1); SODIUM 133 MMOL/L (136-145); TRIGLYCERIDES 128 MG/DL (30-150)
--- NOTE | 2018-06-18 07:15 | NUR ---
HAND-OFF: Report given to [facility] [place]. Pt is in stable condition; plan of care endorsed.
--- NOTE | 2018-06-18 07:19 | NUR ---
NURSE NOTES: Received report from [facility] [place]. Patient is alert and oriented x4 and is in stable condition. No acute distress/SOB noted. Patient denies any pain/discomfort at this time. Call-light placed in easy reach. Will continue plan of care.
[2018-06-18 07:32] LABS: % IRON SATURATION 19 % (15-50); IRON 17 ug/dL (50-175); TOTAL IRON BINDING CAPACITY 88 ug/dL (250-450)
[2018-06-18 08:00] VITALS: BP 134/82
--- NOTE | 2018-06-18 08:56 | NUR ---
RADIOLOGY DEPT CHEST X-RAY DONE.-P.DYE
--- NOTE | 2018-06-18 10:39 | Diagnostic Imaging Report ---
Indication:Abdominal pain Technique: Grayscale and duplex Doppler imaging of the abdomen performed. Comparison: None Findings: Liver shows a coarsened echotexture. There are multiple gallstones within the gallbladder with moderate wall thickening. Small bilateral pleural effusions are present. Some loculated ascites demonstrated within the abdomen particularly along the right side below the kidney. There is no hydronephrosis. Pancreas is largely obscured. Spleen is normal size. CBD is 5 mm. IMPRESSION: Cholelithiasis with wall thickening. Correlate clinically for cholecystitis. Complex, loculated ascites throughout the abdomen. Bilateral pleural effusions. Nonvisualization of the pancreas due to bowel gas.
--- NOTE | 2018-06-18 10:59 | Pulmonology Progress Note ---
Assessment/Plan Problems: (1) Pleural effusion (2) Respiratory distress (3) Ovarian carcinoma Assessment/Plan Problem List: 1. Shortness of breath 2. Large bilateral pleural effusions 3. ovarian cancer s/p resection with likely malignant ascites and presumed malignant effusions 4. Protein calorie malnutrition Plan: -thoracentesis eval with pleural fluid studies today -Monitor volumes, diuresis as able -if not infected will likely have pleurx placement on at least one side when reaccumulates until can start chemo Subjective Allergies: Coded Allergies: No Known Allergies (Unverified , 06/17/18) Subjective AFVSS x ST on 3L Awaiting thora No cough + SOB no wheezing no F/C Objective Last 24 Hour Vital Signs Date Time Temp Pulse Resp B/P (MAP) Pulse Ox O2 Delivery O2 Flow Rate FiO2 06/18/18 09:20 106 134/82 06/18/18 09:00 Nasal Cannula 3.0 06/18/18 08:00 109 06/18/18 08:00 97.9 106 21 134/82 (99) 94 06/18/18 04:00 106 06/18/18 04:00 97.9 107 18 133/85 (101) 94 06/18/18 00:00 110 06/18/18 00:00 97.1 112 19 124/88 (100) 100 06/17/18 21:12 119 131/91 06/17/18 21:00 Nasal Cannula 3.0 06/17/18 20:00 97.6 120 19 131/91 (104) 97 06/17/18 20:00 119 06/17/18 16:00 119 06/17/18 16:00 98.7 123 21 132/94 (107) 95 06/17/18 12:00 97.3 128 22 137/88 (104) 94 06/17/18 12:00 121 Intake and Output 06/17/18 06/18/18 19:00 07:00 Output Total 800 ml Balance -800 ml Output Urine Total 800 ml General Appearance: WD/WN, no acute distress HEENT: normocephalic, atraumatic, anicteric, mucous membranes moist Respiratory/Chest: chest wall non-tender, lungs clear - but decreased @ bases, no respiratory distress, no accessory muscle use Cardiovascular: normal peripheral pulses, tachycardia Abdomen: normal bowel sounds, soft, non tender, no organomegaly, non distended Extremities: no cyanosis, no clubbing, other - trace edema Microbiology Date/Time Source Procedure Growth Status 06/17/18 05:36 Urine,Clean Catch Urine Culture - Preliminary Resulted Laboratory Tests 06/18/18 05:33: White Blood Count 14.5H, Red Blood Count 3.70L, Hemoglobin 10.9L, Hematocrit 32.5L, Mean Corpuscular Volume 88, Mean Corpuscular Hemoglobin 29.4, Mean Corpuscular Hemoglobin Concent 33.3, Red Cell Distribution Width 13.8, Platelet Count 863H, Mean Platelet Volume 4.5L, Neutrophils (%) (Auto) , Lymphocytes (%) (Auto) , Monocytes (%) (Auto) , Eosinophils (%) (Auto) , Basophils (%) (Auto) , Differential Total Cells Counted 100, Neutrophils % (Manual) 89H, Lymphocytes % (Manual) 3L, Monocytes % (Manual) 6, Eosinophils % (Manual) 0, Basophils % ( Manual) 0, Metamyelocytes % 1H, Myelocytes % 1H, Band Neutrophils 0, Platelet Estimate IncreasedH, Platelet Morphology Normal, Red Blood Cell Morphology Normal, Sodium Level 133L, Potassium Level 3.7, Chloride Level 97L, Carbon Dioxide Level 28, Anion Gap 8, Blood Urea Nitrogen 16, Creatinine 0.4L, Estimat Glomerular Filtration Rate , Glucose Level 104, Hemoglobin A1c 5.6, Uric Acid 3.4, Calcium Level 7.7L, Phosphorus Level 3.6, Magnesium Level 1.8, Iron Level 17L, Total Iron Binding Capacity 88L, Percent Iron Saturation 19, Unsaturated Iron Binding 71L, Ferritin 739H, Total Bilirubin 0.8, Gamma Glutamyl Transpeptidase 948H, Aspartate Amino Transf (AST/SGOT) 71H, Alanine Aminotransferase (ALT/SGPT) 46, Alkaline Phosphatase 1143H, Lactate Dehydrogenase 151, Total Creatine Kinase 12L, Troponin I 0.000, Pro-B-Type Natriuretic Peptide 171H, Total Protein 5.0L, Albumin 1.3L, Globulin 3.7, Albumin/Globulin Ratio 0.4L, Triglycerides Level 128, Cholesterol Level 187, LDL Cholesterol 134H, HDL Cholesterol 33L, Cholesterol/HDL Ratio 5.7H, Vitamin B12 Level 1114H, Folate 6.8L, Thyroid Stimulating Hormone (TSH) 0.735, Cortisol AM Sample [Pending] Current Medications Medications (Trade) Dose Ordered Sig/Susana Route PRN Reason Start Time Stop Time Status Last Admin Dose Admin Acetaminophen (Tylenol) 500 mg Q4H PRN ORAL Mild Pain/Temp > 100.5 06/17/18 09:30 07/17/18 09:29 06/17/18 18:21 Albuterol/ Ipratropium (Albuterol/ Ipratropium) 3 ml Q4H PRN HHN Shortness of Breath 06/17/18 09:30 06/22/18 09:29 Carvedilol (Coreg) 3.125 mg EVERY 12 HOURS ORAL 06/17/18 21:00 07/17/18 20:59 06/18/18 09:20 Furosemide (Lasix) 20 mg DAILY IV 06/18/18 09:00 07/18/18 08:59 06/18/18 09:20 Iopamidol (Isovue-370 150ml) 150 ml NOW PRN INJ Radiology Procedure 06/17/18 06:45 06/19/18 06:39 Pantoprazole (Protonix) 40 mg DAILY ORAL 06/18/18 09:00 07/18/18 08:59 06/18/18 09:20 Nicola Franklin MD Jun 18, 2018 10:59
--- NOTE | 2018-06-18 11:15 | Diagnostic Imaging Report ---
Indication: Dyspnea Comparison: 06/17/2018 A single view chest radiograph was obtained. Findings: Bilateral pleural effusions demonstrated. Pulmonary edema noted. The cardiac borders are obscured but there is suggestion of cardiomegaly. IMPRESSION: No change from one day earlier
--- NOTE | 2018-06-18 14:40 | Diagnostic Imaging Report ---
Indications: Pleural effusion Technique: Ultrasound used to localize optimal puncture site. Sterile prepping and draping of the right lower chest performed. Local anesthesia with 1% lidocaine. Dermatotomy made. Puncture of the pleural space using thoracentesis needle. Stylet removed. Catheter placed to vacuum bottle suction. Fluid was aspirated. Patient tolerated procedure well, without immediate complication. Findings: Followup sonography demonstrates complete resolution of pleural fluid. Followup chest x-ray is pending. Impression: Successful ultrasound-guided right thoracentesis, yielding 0.8 liters of fluid
--- NOTE | 2018-06-18 15:16 | Diagnostic Imaging Report ---
Indication: Postthoracentesis Comparison: 06/18/2018 7:43 A single view chest radiograph was obtained. Findings: No pneumothorax seen following right thoracentesis. Right costophrenic angle is now sharp. Left pleural effusion is noted. IMPRESSION: No pneumothorax
[2018-06-18 16:00] VITALS: BP 126/76
--- NOTE | 2018-06-18 16:17 | Nephrology Progress Note ---
Assessment/Plan Problem List: (1) Pleural effusion (2) Respiratory distress (3) Ovarian carcinoma (4) Hyponatremia (5) Hypoalbuminemia Assessment HypoNatremia due to Edematous state HypoAlbuminemia and proteinuria Respiratory distress Pleural effusion likely malignant ascitis Ovarian carcinoma Plan landeros thoracentesis 24 h urine protein coreg monitor labs low dose lasix k supplement Subjective ROS Limited/Unobtainable: No Constitutional: Reports: malaise, weakness Objective Objective Last 24 Hour Vital Signs Date Time Temp Pulse Resp B/P (MAP) Pulse Ox O2 Delivery O2 Flow Rate FiO2 06/18/18 09:20 106 134/82 06/18/18 09:00 Nasal Cannula 3.0 06/18/18 08:00 109 06/18/18 08:00 97.9 106 21 134/82 (99) 94 06/18/18 04:00 106 06/18/18 04:00 97.9 107 18 133/85 (101) 94 06/18/18 00:00 110 06/18/18 00:00 97.1 112 19 124/88 (100) 100 06/17/18 21:12 119 131/91 06/17/18 21:00 Nasal Cannula 3.0 06/17/18 20:00 97.6 120 19 131/91 (104) 97 06/17/18 20:00 119 Intake and Output 06/17/18 06/18/18 19:00 07:00 Output Total 800 ml Balance -800 ml Output Urine Total 800 ml Laboratory Tests 06/18/18 05:33: White Blood Count 14.5H, Red Blood Count 3.70L, Hemoglobin 10.9L, Hematocrit 32.5L, Mean Corpuscular Volume 88, Mean Corpuscular Hemoglobin 29.4, Mean Corpuscular Hemoglobin Concent 33.3, Red Cell Distribution Width 13.8, Platelet Count 863H, Mean Platelet Volume 4.5L, Neutrophils (%) (Auto) , Lymphocytes (%) (Auto) , Monocytes (%) (Auto) , Eosinophils (%) (Auto) , Basophils (%) (Auto) , Differential Total Cells Counted 100, Neutrophils % (Manual) 89H, Lymphocytes % (Manual) 3L, Monocytes % (Manual) 6, Eosinophils % (Manual) 0, Basophils % ( Manual) 0, Metamyelocytes % 1H, Myelocytes % 1H, Band Neutrophils 0, Platelet Estimate IncreasedH, Platelet Morphology Normal, Red Blood Cell Morphology Normal, Sodium Level 133L, Potassium Level 3.7, Chloride Level 97L, Carbon Dioxide Level 28, Anion Gap 8, Blood Urea Nitrogen 16, Creatinine 0.4L, Estimat Glomerular Filtration Rate , Glucose Level 104, Hemoglobin A1c 5.6, Uric Acid 3.4, Calcium Level 7.7L, Phosphorus Level 3.6, Magnesium Level 1.8, Iron Level 17L, Total Iron Binding Capacity 88L, Percent Iron Saturation 19, Unsaturated Iron Binding 71L, Ferritin 739H, Total Bilirubin 0.8, Gamma Glutamyl Transpeptidase 948H, Aspartate Amino Transf (AST/SGOT) 71H, Alanine Aminotransferase (ALT/SGPT) 46, Alkaline Phosphatase 1143H, Lactate Dehydrogenase 151, Total Creatine Kinase 12L, Troponin I 0.000, Pro-B-Type Natriuretic Peptide 171H, Total Protein 5.0L, Albumin 1.3L, Globulin 3.7, Albumin/Globulin Ratio 0.4L, Triglycerides Level 128, Cholesterol Level 187, LDL Cholesterol 134H, HDL Cholesterol 33L, Cholesterol/HDL Ratio 5.7H, Vitamin B12 Level 1114H, Folate 6.8L, Thyroid Stimulating Hormone (TSH) 0.735, Cortisol AM Sample [Pending] Height (Feet): 5 Height (Inches): 2.00 Weight (Pounds): 130 General Appearance: no apparent distress, lethargic Cardiovascular: tachycardia Respiratory/Chest: decreased breath sounds Abdomen: distended Jae Walker MD Jun 18, 2018 16:17
--- NOTE | 2018-06-18 16:40 | Consultation ---
History of Present Illness General Date patient seen: Jun 18, 2018 Time patient seen: 04:00 - pm Chief Complaint: Abdominal pain Referring physician: Sachin Reason for Consultation: Pain management Present Illness HPI This is a 72 y/o female being seen for initial pain management consultation. 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 Marti from [facility]. Patient has been seen by Dr. Marc a oncologist no chemo was started, this was d/w Dr. Alexandra. Daughter reports patient has been on Morphine ER 100mg BID and Perry 10/325mg which was started Friday after discharge from hospital. [place] PDMP was reviewed but medications were not listed on the site. At this time pt is in bed showing no signs of pain or distress and denies any pain at this time. We were consulted so patient has adequate pain control while here in the hospital. Allergies: Coded Allergies: No Known Allergies (Unverified , 06/17/18) Medication History Scheduled Morphine Sulfate (Morphine Sulfate ER), Unknown Dose ORAL EVERY 12 HOURS, ( Reported) Scheduled PRN Hydrocodone Bit/Acetaminophen 5-325* (Perry 5-325*), Unknown Dose ORAL Q4H PRN for For Pain, (Reported) Patient History Healthcare decision maker Resuscitation status Full Code Advanced Directive on File No Past Medical/Surgical History Past Medical/Surgical History: (1) Respiratory distress (2) Pleural effusion (3) Hyponatremia (4) Hypoalbuminemia Review of Systems Constitutional: Reports: weakness Eye: Reports: no symptoms ENT: Reports: no symptoms Respiratory: Reports: shortness of breath Cardiovascular: Reports: no symptoms Gastrointestinal: Reports: abdominal pain Genitourinary: Reports: no symptoms Musculoskeletal: Reports: muscle stiffness Skin: Reports: no symptoms Psychiatric: Reports: no symptoms Neurological: Reports: no symptoms Endocrine: Reports: no symptoms Hematologic/Lymphatic: Reports: no symptoms Physical Exam General Appearance: no apparent distress, alert HEENT: PERRL, EOMI Neck: non-tender, supple Respiratory/Chest: decreased breath sounds Cardiovascular/Chest: normal rate, regular rhythm Abdomen: tender Extremities: non-tender Neurologic: alert, responsive Last 24 Hour Vital Signs Date Time Temp Pulse Resp B/P (MAP) Pulse Ox O2 Delivery O2 Flow Rate FiO2 06/18/18 09:20 106 134/82 06/18/18 09:00 Nasal Cannula 3.0 06/18/18 08:00 109 06/18/18 08:00 97.9 106 21 134/82 (99) 94 06/18/18 04:00 106 06/18/18 04:00 97.9 107 18 133/85 (101) 94 06/18/18 00:00 110 06/18/18 00:00 97.1 112 19 124/88 (100) 100 06/17/18 21:12 119 131/91 06/17/18 21:00 Nasal Cannula 3.0 06/17/18 20:00 97.6 120 19 131/91 (104) 97 06/17/18 20:00 119 Intake and Output 06/17/18 06/18/18 19:00 07:00 Output Total 800 ml Balance -800 ml Output Urine Total 800 ml Laboratory Tests Test 06/18/18 05:33 White Blood Count 14.5 K/UL (4.8-10.8) H Red Blood Count 3.70 M/UL (4.20-5.40) L Hemoglobin 10.9 G/DL (12.0-16.0) L Hematocrit 32.5 % (37.0-47.0) L Mean Corpuscular Volume 88 FL (80-99) Mean Corpuscular Hemoglobin 29.4 PG (27.0-31.0) Mean Corpuscular Hemoglobin Concent 33.3 G/DL (32.0-36.0) Red Cell Distribution Width 13.8 % (11.6-14.8) Platelet Count 863 K/UL (150-450) H Mean Platelet Volume 4.5 FL (6.5-10.1) L Neutrophils (%) (Auto) % (45.0-75.0) Lymphocytes (%) (Auto) % (20.0-45.0) Monocytes (%) (Auto) % (1.0-10.0) Eosinophils (%) (Auto) % (0.0-3.0) Basophils (%) (Auto) % (0.0-2.0) Differential Total Cells Counted 100 Neutrophils % (Manual) 89 % (45-75) H Lymphocytes % (Manual) 3 % (20-45) L Monocytes % (Manual) 6 % (1-10) Eosinophils % (Manual) 0 % (0-3) Basophils % (Manual) 0 % (0-2) Metamyelocytes % 1 % (0-0) H Myelocytes % 1 % (0-0) H Band Neutrophils 0 % (0-8) Platelet Estimate Increased H Platelet Morphology Normal Red Blood Cell Morphology Normal Sodium Level 133 MMOL/L (136-145) L Potassium Level 3.7 MMOL/L (3.5-5.1) Chloride Level 97 MMOL/L (98-107) L Carbon Dioxide Level 28 MMOL/L (21-32) Anion Gap 8 mmol/L (5-15) Blood Urea Nitrogen 16 mg/dL (7-18) Creatinine 0.4 MG/DL (0.55-1.30) L Estimat Glomerular Filtration Rate mL/min (>60) Glucose Level 104 MG/DL (74-106) Hemoglobin A1c 5.6 % (4.3-6.0) Uric Acid 3.4 MG/DL (2.6-7.2) Calcium Level 7.7 MG/DL (8.5-10.1) L Phosphorus Level 3.6 MG/DL (2.5-4.9) Magnesium Level 1.8 MG/DL (1.8-2.4) Iron Level 17 ug/dL (50-175) L Total Iron Binding Capacity 88 ug/dL (250-450) L Percent Iron Saturation 19 % (15-50) Unsaturated Iron Binding 71 ug/dL (112-346) L Ferritin 739 NG/ML (8-388) H Total Bilirubin 0.8 MG/DL (0.2-1.0) Gamma Glutamyl Transpeptidase 948 U/L (5-85) H Aspartate Amino Transf (AST/SGOT) 71 U/L (15-37) H Alanine Aminotransferase (ALT/SGPT) 46 U/L (12-78) Alkaline Phosphatase 1143 U/L (46-116) H Lactate Dehydrogenase 151 U/L (81-234) Total Creatine Kinase 12 U/L (26-308) L Troponin I 0.000 ng/mL (0.000-0.056) Pro-B-Type Natriuretic Peptide 171 pg/mL (0-125) H Total Protein 5.0 G/DL (6.4-8.2) L Albumin 1.3 G/DL (3.4-5.0) L Globulin 3.7 g/dL Albumin/Globulin Ratio 0.4 (1.0-2.7) L Triglycerides Level 128 MG/DL (30-150) Cholesterol Level 187 MG/DL (< 200) LDL Cholesterol 134 mg/dL (<100) H HDL Cholesterol 33 MG/DL (40-60) L Cholesterol/HDL Ratio 5.7 (3.3-4.4) H Vitamin B12 Level 1114 PG/ML (193-986) H Folate 6.8 NG/ML (8.6-58.9) L Thyroid Stimulating Hormone (TSH) 0.735 uiU/mL (0.358-3.740) Cortisol AM Sample Pending Height (Feet): 5 Height (Inches): 2.00 Weight (Pounds): 130 Medications Current Medications Medications (Trade) Dose Ordered Sig/Susana Route PRN Reason Start Time Stop Time Status Last Admin Dose Admin Acetaminophen (Tylenol) 500 mg Q4H PRN ORAL Mild Pain/Temp > 100.5 06/17/18 09:30 07/17/18 09:29 06/17/18 18:21 Albuterol/ Ipratropium (Albuterol/ Ipratropium) 3 ml Q4H PRN HHN Shortness of Breath 06/17/18 09:30 06/22/18 09:29 Carvedilol (Coreg) 6.25 mg EVERY 12 HOURS ORAL 06/18/18 21:00 07/17/18 20:59 Furosemide (Lasix) 20 mg DAILY IV 06/18/18 09:00 07/18/18 08:59 06/18/18 09:20 Iopamidol (Isovue-370 150ml) 150 ml NOW PRN INJ Radiology Procedure 06/17/18 06:45 06/19/18 06:39 Pantoprazole (Protonix) 40 mg DAILY ORAL 06/18/18 09:00 07/18/18 08:59 06/18/18 09:20 Potassium Chloride (K-Dur) 20 meq TWICE A DAY ORAL 06/18/18 18:00 07/18/18 17:59 Assessment/Plan Assessment/Plan (1) Intractable pain (2) Ovarian cancer Patient to be started on Morphine 2-4mg IV Q4H PRN Mod-Severe pain. Daughter was advised to bring in medications to be reviewed. Dr. Breaux and he concurred. Thank you for this consultation. Tenzin Foster Jun 18, 2018 16:40
[2018-06-18] MEDS ORDERED: Morphine Sulfate 2mg/ml Inj(IV/IM USE ONLY) IVP PRN (16:45)
--- NOTE | 2018-06-18 17:30 | General Progress Note ---
Assessment/Plan Assessment/Plan Assessment/Recommendations # Thrombocytosis - likely related to reactive process, ovarian cancer --> Continue to monitor for improvement -->Trend CBC as needed --> If continues to be elevated, consider to send for NOMI-2 --> Smear reviewed and no abnormalities noted. *Under manual differential # ovarian cancer s/p resection with likely malignant ascites and presumed malignant effusions -->review outside imaging and treatments patient has received -->outside labs and pathology to be reviewed -->defer to outpatient oncologist for further care, patient requires followup # Anemia of chronic disease (or of iron deficiency) due to underlying chronic medical issues, multifactorial -->Anemia workup has been ordered -->No evidence of hemolysis is noted, peripheral smear has been reviewed. -->Hgb goal >7. Transfuse prn. -->Epogen or iron at this time is not particularly indicated -->Medications have been reviewed # Leukocytosis. Likely related to underlying infection versus reactive process. --> Peripheral has been ordered, results are pending --> Medications have been reviewed --> Imaging has been reviewed -->Blood cultures and urine cultures prn --> has been started on abx, empiric treatment # Shortness of breath # Large bilateral pleural effusions -->-thoracentesis eval with pleural fluid studies The timing of this note does not necessarily reflect the time of the patient was seen. Greatly appreciate consultation! Subjective Constitutional: Denies: no symptoms, chills, diaphoresis, fever, malaise, weakness, other Cardiovascular: Denies: no symptoms, chest pain, edema, irregular heart rate, lightheadedness, palpitations, syncope, other Respiratory: Denies: no symptoms, cough, orthopnea, shortness of breath, SOB with excertion, SOB at rest, sputum, stridor, wheezing, other Gastrointestinal/Abdominal: Denies: no symptoms, abdomen distended, abdominal pain, black stools, tarry stools, blood in stool, constipated, diarrhea, difficulty swallowing, nausea, poor appetite, poor fluid intake, rectal bleeding , vomiting, other Genitourinary: Denies: no symptoms, burning, discharge, frequency, flank pain, hematuria, incontinence, pain, urgency, other Neurologic/Psychiatric: Denies: no symptoms, anxiety, depressed, emotional problems, headache, numbness, paresthesia, pre-existing deficit, seizure, tingling, tremors, weakness, other Hematologic/Lymphatic: Denies: no symptoms, anemia, easy bleeding, easy bruising, other Allergies: Coded Allergies: No Known Allergies (Unverified , 06/17/18) Subjective 06/18: thoracentesis eval with pleural fluid studies today, plt remains elevated. Objective Last 24 Hour Vital Signs Date Time Temp Pulse Resp B/P (MAP) Pulse Ox O2 Delivery O2 Flow Rate FiO2 06/18/18 16:00 98.0 110 21 126/76 (93) 94 06/18/18 16:00 105 06/18/18 12:00 97 06/18/18 09:20 106 134/82 06/18/18 09:00 Nasal Cannula 3.0 06/18/18 08:00 109 06/18/18 08:00 97.9 106 21 134/82 (99) 94 06/18/18 04:00 106 06/18/18 04:00 97.9 107 18 133/85 (101) 94 06/18/18 00:00 110 06/18/18 00:00 97.1 112 19 124/88 (100) 100 06/17/18 21:12 119 131/91 06/17/18 21:00 Nasal Cannula 3.0 06/17/18 20:00 97.6 120 19 131/91 (104) 97 06/17/18 20:00 119 Intake and Output 06/17/18 06/18/18 19:00 07:00 Output Total 800 ml Balance -800 ml Output Urine Total 800 ml Laboratory Tests 06/18/18 05:33: White Blood Count 14.5H, Red Blood Count 3.70L, Hemoglobin 10.9L, Hematocrit 32.5L, Mean Corpuscular Volume 88, Mean Corpuscular Hemoglobin 29.4, Mean Corpuscular Hemoglobin Concent 33.3, Red Cell Distribution Width 13.8, Platelet Count 863H, Mean Platelet Volume 4.5L, Neutrophils (%) (Auto) , Lymphocytes (%) (Auto) , Monocytes (%) (Auto) , Eosinophils (%) (Auto) , Basophils (%) (Auto) , Differential Total Cells Counted 100, Neutrophils % (Manual) 89H, Lymphocytes % (Manual) 3L, Monocytes % (Manual) 6, Eosinophils % (Manual) 0, Basophils % ( Manual) 0, Metamyelocytes % 1H, Myelocytes % 1H, Band Neutrophils 0, Platelet Estimate IncreasedH, Platelet Morphology Normal, Red Blood Cell Morphology Normal, Sodium Level 133L, Potassium Level 3.7, Chloride Level 97L, Carbon Dioxide Level 28, Anion Gap 8, Blood Urea Nitrogen 16, Creatinine 0.4L, Estimat Glomerular Filtration Rate , Glucose Level 104, Hemoglobin A1c 5.6, Uric Acid 3.4, Calcium Level 7.7L, Phosphorus Level 3.6, Magnesium Level 1.8, Iron Level 17L, Total Iron Binding Capacity 88L, Percent Iron Saturation 19, Unsaturated Iron Binding 71L, Ferritin 739H, Total Bilirubin 0.8, Gamma Glutamyl Transpeptidase 948H, Aspartate Amino Transf (AST/SGOT) 71H, Alanine Aminotransferase (ALT/SGPT) 46, Alkaline Phosphatase 1143H, Lactate Dehydrogenase 151, Total Creatine Kinase 12L, Troponin I 0.000, Pro-B-Type Natriuretic Peptide 171H, Total Protein 5.0L, Albumin 1.3L, Globulin 3.7, Albumin/Globulin Ratio 0.4L, Triglycerides Level 128, Cholesterol Level 187, LDL Cholesterol 134H, HDL Cholesterol 33L, Cholesterol/HDL Ratio 5.7H, Vitamin B12 Level 1114H, Folate 6.8L, Thyroid Stimulating Hormone (TSH) 0.735, Cortisol AM Sample [Pending] Height (Feet): 5 Height (Inches): 2.00 Weight (Pounds): 130 Objective Physical Exam General Appearance: no apparent distress, alert HEENT: normocephalic, atraumatic Neck: supple Respiratory/Chest: decreased breath sounds Cardiovascular/Chest: normal rate, regular rhythm Abdomen: non tender, soft Extremities: no edema Keegan Flores MD Jun 18, 2018 17:30
--- NOTE | 2018-06-18 19:20 | NUR ---
NURSE NOTES: Received report from Douglas Brown RN. Pt is resting in the bed w/o distress in 2L NC. ST 108 in the monitor. IV site is asymptomatic. Family are at the bedside. Safety measures are applied w/ bed alarm on, bed in lowest position with side rails up x2. Call light and side tables are w/in reach. Will follow plans of care. Addendum: 06/18/18 at 2242 by YAMILKA METCALF RN Pt c/o SOB. RT was called and assessed pt's condition. Currently, no SOB noted. Resting comfortably.
--- NOTE | 2018-06-18 19:36 | NUR ---
HAND-OFF: Report given to KOFI Guy. Patient is in stable condition. No acute distress/SOB noted. Endorsed plan of care.
[2018-06-18 20:00] VITALS: BP 116/81
[2018-06-18] MEDS ORDERED: Carvedilol 6.25mg Tab ORAL SCH (21:00)
--- NOTE | 2018-06-18 21:56 | General Progress Note ---
Assessment/Plan Problem List: (1) Ovarian carcinoma ICD Codes: C56.9 - Malignant neoplasm of unspecified ovary SNOMED: 750121533 Qualifiers: Qualified Codes: C56.9 - Malignant neoplasm of unspecified ovary (2) Respiratory distress ICD Codes: R06.03 - Acute respiratory distress SNOMED: 034968703 (3) Pleural effusion ICD Codes: J90 - Pleural effusion, not elsewhere classified SNOMED: 97102879 (4) Hypoalbuminemia ICD Codes: E88.09 - Other disorders of plasma-protein metabolism, not elsewhere classified SNOMED: 114955616 Status: progressing Assessment/Plan still sob pleural effusion resp insuff weak distended abdomen ovarian cancer Subjective Respiratory: Reports: shortness of breath Allergies: Coded Allergies: No Known Allergies (Unverified , 06/17/18) Objective Last 24 Hour Vital Signs Date Time Temp Pulse Resp B/P (MAP) Pulse Ox O2 Delivery O2 Flow Rate FiO2 06/18/18 20:00 97.3 114 20 116/81 (93) 94 06/18/18 16:00 98.0 110 21 126/76 (93) 94 06/18/18 16:00 105 06/18/18 12:00 97 06/18/18 09:20 106 134/82 06/18/18 09:00 Nasal Cannula 3.0 06/18/18 08:00 109 06/18/18 08:00 97.9 106 21 134/82 (99) 94 06/18/18 04:00 106 06/18/18 04:00 97.9 107 18 133/85 (101) 94 06/18/18 00:00 110 06/18/18 00:00 97.1 112 19 124/88 (100) 100 Intake and Output 06/17/18 06/18/18 18:59 06:59 Output Total 800 ml Balance -800 ml Output Urine Total 800 ml Laboratory Tests 06/18/18 05:33: White Blood Count 14.5H, Red Blood Count 3.70L, Hemoglobin 10.9L, Hematocrit 32.5L, Mean Corpuscular Volume 88, Mean Corpuscular Hemoglobin 29.4, Mean Corpuscular Hemoglobin Concent 33.3, Red Cell Distribution Width 13.8, Platelet Count 863H, Mean Platelet Volume 4.5L, Neutrophils (%) (Auto) , Lymphocytes (%) (Auto) , Monocytes (%) (Auto) , Eosinophils (%) (Auto) , Basophils (%) (Auto) , Differential Total Cells Counted 100, Neutrophils % (Manual) 89H, Lymphocytes % (Manual) 3L, Monocytes % (Manual) 6, Eosinophils % (Manual) 0, Basophils % ( Manual) 0, Metamyelocytes % 1H, Myelocytes % 1H, Band Neutrophils 0, Platelet Estimate IncreasedH, Platelet Morphology Normal, Red Blood Cell Morphology Normal, Sodium Level 133L, Potassium Level 3.7, Chloride Level 97L, Carbon Dioxide Level 28, Anion Gap 8, Blood Urea Nitrogen 16, Creatinine 0.4L, Estimat Glomerular Filtration Rate , Glucose Level 104, Hemoglobin A1c 5.6, Uric Acid 3.4, Calcium Level 7.7L, Phosphorus Level 3.6, Magnesium Level 1.8, Iron Level 17L, Total Iron Binding Capacity 88L, Percent Iron Saturation 19, Unsaturated Iron Binding 71L, Ferritin 739H, Total Bilirubin 0.8, Gamma Glutamyl Transpeptidase 948H, Aspartate Amino Transf (AST/SGOT) 71H, Alanine Aminotransferase (ALT/SGPT) 46, Alkaline Phosphatase 1143H, Lactate Dehydrogenase 151, Total Creatine Kinase 12L, Troponin I 0.000, Pro-B-Type Natriuretic Peptide 171H, Total Protein 5.0L, Albumin 1.3L, Globulin 3.7, Albumin/Globulin Ratio 0.4L, Triglycerides Level 128, Cholesterol Level 187, LDL Cholesterol 134H, HDL Cholesterol 33L, Cholesterol/HDL Ratio 5.7H, Vitamin B12 Level 1114H, Folate 6.8L, Thyroid Stimulating Hormone (TSH) 0.735, Cortisol AM Sample 21.6 Height (Feet): 5 Height (Inches): 2.00 Weight (Pounds): 130 Neck: supple Cardiovascular: normal rate Respiratory/Chest: rhonchi - bilaterally Vane Stephenson MD Jun 18, 2018 21:56
--- NOTE | 2018-06-18 22:15 | Consultation ---
DATE OF CONSULTATION: 06/17/2018 CARDIOLOGY CONSULTATION CONSULTING PHYSICIAN: Andrew Man M.D. REFERRING PHYSICIAN: Vane Stephenson M.D. REASON FOR CONSULTATION: Management of tachycardia. HISTORY OF PRESENT ILLNESS: The patient is a very unfortunate 72-year-old [place] female, who presents to the hospital with shortness of breath, which has gotten worse in the past couple of days. According to EMS observation, her oxygen saturation was low around 90% on room air. The patient also complained of chronic cough. At the time of arrival to the hospital, blood pressure is 138/89 and heart rate of 117. Cardiology consultation was made at the request of Dr. Stephenson for management of tachycardia. PAST MEDICAL HISTORY: Significant for, 1. Metastatic ovarian cancer. 2. Bilateral pleural effusion, status post thoracentesis. SURGICAL HISTORY: Thoracentesis. MEDICATIONS: List of medications at home includes hydrocodone, acetaminophen 5/325 one tablet q.4 h. p.r.n. pain, and morphine sulfate 100 mg q.12 hours. ALLERGIES: No known drug allergies. FAMILY HISTORY: No premature coronary artery disease in the first-degree relatives. SOCIAL HISTORY: No prior history of tobacco, alcohol, or illicit drug use. REVIEW OF SYSTEMS: HEENT: Denies any headache, diplopia, or blurred vision. CONSTITUTIONAL: Generalized weakness as well as weight loss, but no fever, chills, or night sweats. CARDIOVASCULAR: Denies any chest pain. Denies any PND, orthopnea, or leg swelling. PULMONARY: Chronic cough as well as shortness of breath. History of bilateral pleural effusion. History of thoracentesis. GASTROINTESTINAL: Denies any nausea, vomiting, diarrhea, constipation, abdominal pain, or GI bleed. GENITOURINARY: Denies any hematuria, dysuria, or incontinence. NEUROLOGY: Denies any motor dysfunction, sensory deficit, or altered speech. PHYSICAL EXAMINATION: VITAL SIGNS: Blood pressure was 138/89, pulse of 117, respirations 22, O2 saturation 97% on nasal cannula with O2 flow rate of 4.0 and FiO2 of 28%, and temperature was 98.2 degrees Fahrenheit. GENERAL: The patient is a very unfortunate 72-year-old female, who was tachypneic and chronically ill, in no apparent respiratory distress. HEENT: Atraumatic and normocephalic. Anicteric. Pupils are equal, round, and reactive to light and accommodation. Extraocular muscles intact. NECK: JVP less than 5 cm. No carotid bruit. Carotid upstrokes 2+ bilaterally. CARDIOVASCULAR: Normal S1, S2. Regular rate and rhythm. Tachycardic. No murmurs, gallops, or rubs. LUNGS: Diminished breath sounds in both bases. ABDOMEN: Soft, nontender, and nondistended. No hepatosplenomegaly. Positive bowel sounds. An abdominal incision site is clean. EXTREMITIES: No evidence of edema, clubbing, or cyanosis. DIAGNOSTIC DATA: Chest x-ray showed [id number] bilateral pleural effusion with associated pulmonary edema. CT angiography of the chest showed no evidence of pulmonary embolism, aortic dissection or aortic aneurysm, [id number] bilateral pleural effusion with associated atelectasis of portions of the lungs bilaterally, ascites, cholelithiasis with wall thickening, and anasarca. LABORATORY FINDINGS: WBC was 12.4, hemoglobin 11.1, hematocrit of 33.8, and platelet count is , 80% neutrophils and 1% bandemia. INR is 1.0. PTT was 28. Chemistry showed sodium 131, potassium was 4.3, chloride 97, bicarbonate 28, BUN of 14, creatinine 0.4, and glucose 125. Calcium was 8.3. Albumin is 1.3. ProBNP was 194. Troponin I is 0.006. INR 1.0. A 12-lead electrocardiogram showed sinus tachycardia at the rate of 121 with age indeterminate anterior wall infarct. ASSESSMENT AND PLAN: The patient is a very unfortunate 72-year-old lady, who is seen in Cardiology consultation. 1. Sinus tachycardia, most likely due to intravascular volume depletion as she is very hypoalbuminemic probably contracted intravascular compartment. Other etiology could be associated sepsis in view of anasarca and tumor burden. 2. The management of tachycardia in this patient is to provide supportive therapy with possible albumin administration. Intravenous Lasix may prone the patient to hypotension. I would avoid use of beta-hunter in this patient. We would like to obtain 2D echocardiography for assessment of LV systolic and diastolic function possibly ruling out pericardial effusion. 3. Metastatic ovarian cancer with bilateral pleural effusion status post thoracentesis. I would like to thank, Dr. Stephenson, for the courtesy of this consultation. Andrew Man M.D. DR: HAMILTON JOB#: [id number] CC:
[2018-06-18] MEDS: Morphine Sulfate 2mg/ml Inj(IV/IM USE ONLY) IVP PRN (23:11)
--- NOTE | 2018-06-18 23:16 | Cardiology Progress Note ---
Assessment/Plan Assessment/Plan 1. Sinus tachycardia, most likely due to intravascular volume depletion due to low oncotic pressure, consider albumin adminstration, DC coreg as this may drop her pressure. Other etiologies include sepsis and increased tumor burden. 2. B/L pleural effusion, s/p thoracentesis 3. Metastatic ovarian cancer 4. FTT 5. Respiratory failure. 6. Encephalopathy Subjective Subjective Sinus tachycardia at rate of 108. Objective Last 24 Hour Vital Signs Date Time Temp Pulse Resp B/P (MAP) Pulse Ox O2 Delivery O2 Flow Rate FiO2 06/18/18 20:10 108 06/18/18 20:00 97.3 114 20 116/81 (93) 94 06/18/18 16:00 98.0 110 21 126/76 (93) 94 06/18/18 16:00 105 06/18/18 12:00 97 06/18/18 09:20 106 134/82 06/18/18 09:00 Nasal Cannula 3.0 06/18/18 08:00 109 06/18/18 08:00 97.9 106 21 134/82 (99) 94 06/18/18 04:00 106 06/18/18 04:00 97.9 107 18 133/85 (101) 94 06/18/18 00:00 110 06/18/18 00:00 97.1 112 19 124/88 (100) 100 Intake and Output 06/17/18 06/18/18 18:59 06:59 Output Total 800 ml Balance -800 ml Output Urine Total 800 ml 2D Echo: LVEF 65%, Grade I LVDD, pleural effusion, RVSP 48 mmHg Laboratory Tests Test 06/18/18 05:33 White Blood Count 14.5 K/UL (4.8-10.8) H Red Blood Count 3.70 M/UL (4.20-5.40) L Hemoglobin 10.9 G/DL (12.0-16.0) L Hematocrit 32.5 % (37.0-47.0) L Mean Corpuscular Volume 88 FL (80-99) Mean Corpuscular Hemoglobin 29.4 PG (27.0-31.0) Mean Corpuscular Hemoglobin Concent 33.3 G/DL (32.0-36.0) Red Cell Distribution Width 13.8 % (11.6-14.8) Platelet Count 863 K/UL (150-450) H Mean Platelet Volume 4.5 FL (6.5-10.1) L Neutrophils (%) (Auto) % (45.0-75.0) Lymphocytes (%) (Auto) % (20.0-45.0) Monocytes (%) (Auto) % (1.0-10.0) Eosinophils (%) (Auto) % (0.0-3.0) Basophils (%) (Auto) % (0.0-2.0) Differential Total Cells Counted 100 Neutrophils % (Manual) 89 % (45-75) H Lymphocytes % (Manual) 3 % (20-45) L Monocytes % (Manual) 6 % (1-10) Eosinophils % (Manual) 0 % (0-3) Basophils % (Manual) 0 % (0-2) Metamyelocytes % 1 % (0-0) H Myelocytes % 1 % (0-0) H Band Neutrophils 0 % (0-8) Platelet Estimate Increased H Platelet Morphology Normal Red Blood Cell Morphology Normal Sodium Level 133 MMOL/L (136-145) L Potassium Level 3.7 MMOL/L (3.5-5.1) Chloride Level 97 MMOL/L (98-107) L Carbon Dioxide Level 28 MMOL/L (21-32) Anion Gap 8 mmol/L (5-15) Blood Urea Nitrogen 16 mg/dL (7-18) Creatinine 0.4 MG/DL (0.55-1.30) L Estimat Glomerular Filtration Rate mL/min (>60) Glucose Level 104 MG/DL (74-106) Hemoglobin A1c 5.6 % (4.3-6.0) Uric Acid 3.4 MG/DL (2.6-7.2) Calcium Level 7.7 MG/DL (8.5-10.1) L Phosphorus Level 3.6 MG/DL (2.5-4.9) Magnesium Level 1.8 MG/DL (1.8-2.4) Iron Level 17 ug/dL (50-175) L Total Iron Binding Capacity 88 ug/dL (250-450) L Percent Iron Saturation 19 % (15-50) Unsaturated Iron Binding 71 ug/dL (112-346) L Ferritin 739 NG/ML (8-388) H Total Bilirubin 0.8 MG/DL (0.2-1.0) Gamma Glutamyl Transpeptidase 948 U/L (5-85) H Aspartate Amino Transf (AST/SGOT) 71 U/L (15-37) H Alanine Aminotransferase (ALT/SGPT) 46 U/L (12-78) Alkaline Phosphatase 1143 U/L (46-116) H Lactate Dehydrogenase 151 U/L (81-234) Total Creatine Kinase 12 U/L (26-308) L Troponin I 0.000 ng/mL (0.000-0.056) Pro-B-Type Natriuretic Peptide 171 pg/mL (0-125) H Total Protein 5.0 G/DL (6.4-8.2) L Albumin 1.3 G/DL (3.4-5.0) L Globulin 3.7 g/dL Albumin/Globulin Ratio 0.4 (1.0-2.7) L Triglycerides Level 128 MG/DL (30-150) Cholesterol Level 187 MG/DL (< 200) LDL Cholesterol 134 mg/dL (<100) H HDL Cholesterol 33 MG/DL (40-60) L Cholesterol/HDL Ratio 5.7 (3.3-4.4) H Vitamin B12 Level 1114 PG/ML (193-986) H Folate 6.8 NG/ML (8.6-58.9) L Thyroid Stimulating Hormone (TSH) 0.735 uiU/mL (0.358-3.740) Cortisol AM Sample 21.6 UG/DL Microbiology Date/Time Source Procedure Growth Status 06/17/18 05:36 Urine,Clean Catch Urine Culture - Preliminary Resulted Objective HEENT: Atraumatic and normocephalic. Anicteric. Pupils are equal, round, and reactive to light and accommodation. Extraocular muscles intact. NECK: JVP less than 5 cm. No carotid bruit. Carotid upstrokes 2+ bilaterally. CARDIOVASCULAR: Normal S1, S2. Regular rate and rhythm. Tachycardic. No murmurs, gallops, or rubs. LUNGS: Diminished breath sounds in both bases. ABDOMEN: Soft, nontender, and nondistended. No hepatosplenomegaly. Positive bowel sounds. An abdominal incision site is clean. EXTREMITIES: No evidence of edema, clubbing, or cyanosis. Andrew Man MD Jun 18, 2018 23:16
--- NOTE | 2018-06-18 23:32 | NUR ---
NURSE NOTES: Pt requested pain med and sleeping pill, pain med was given, but there are no order of sleeping pill. Called Dr. Stephenson, and stated No sleeping pill order for this pt. Will inform pt. Will continue to monitor.
[2018-06-19] VITALS: BP_SYST 110; BP_SYST 125; BP_DIAS 78; BP_DIAS 79
[2018-06-19 04:00] VITALS: BP 125/79
[2018-06-19] MEDS: Morphine Sulfate 2mg/ml Inj(IV/IM USE ONLY) IVP PRN (04:02)
--- NOTE | 2018-06-19 07:20 | NUR ---
HAND-OFF: Report given to Samantha Turcios RN. Stable condition.
--- NOTE | 2018-06-19 07:56 | NUR ---
NURSE NOTES: Received report from KOFI Guy. Patient in bed resting, no active s/s cardiac, respiratory distress noticed at this time. Patient on oxygen 2 L via [place]. De Santiago draining well to gravity. IV site asymptomatic, patent, intact. Denies pain at this time. AO x4, ST with HR 107. Bed in lowest position, side rails up x3, call light within reach. Will continue to monitor.
[2018-06-19 08:00] VITALS: BP 129/84
--- NOTE | 2018-06-19 09:26 | General Progress Note ---
Assessment/Plan Assessment/Plan (1) Intractable pain (2) Ovarian cancer Patient to be continued on Morphine. Dr. Breaux and he concurred. Subjective Date patient seen: Jun 19, 2018 Time patient seen: 07:15 - am Constitutional: Reports: weakness HEENT: Reports: no symptoms Cardiovascular: Reports: no symptoms Respiratory: Reports: shortness of breath Gastrointestinal/Abdominal: Reports: abdominal pain Genitourinary: Reports: no symptoms Neurologic/Psychiatric: Reports: no symptoms Endocrine: Reports: no symptoms Hematologic/Lymphatic: Reports: no symptoms Allergies: Coded Allergies: No Known Allergies (Unverified , 06/17/18) Subjective Patient is in bed with no signs of pain. Has gotten 2 doses of Morphine in the last 2 hours. Objective Last 24 Hour Vital Signs Date Time Temp Pulse Resp B/P (MAP) Pulse Ox O2 Delivery O2 Flow Rate FiO2 06/19/18 04:00 97.1 107 18 125/79 (94) 94 06/19/18 03:48 104 06/19/18 00:20 105 20 Nasal Cannula 2.0 28 06/19/18 00:00 98.1 109 20 110/78 (89) 95 06/18/18 23:59 104 06/18/18 21:00 Nasal Cannula 2.0 06/18/18 20:10 108 06/18/18 20:00 97.3 114 20 116/81 (93) 94 06/18/18 16:00 98.0 110 21 126/76 (93) 94 06/18/18 16:00 105 06/18/18 12:00 97 Intake and Output 06/18/18 06/19/18 19:00 07:00 Output Total 800 ml 800 ml Balance -800 ml -800 ml Output Urine Total 800 ml 800 ml # Voids 1 1 Laboratory Tests 06/18/18 23:00: Urine Collection Time 24, Urine Total Volume 1000, Urine Total Protein mg/dL 36 , Urine Total Protein 24 Hour 360.0H Height (Feet): 5 Height (Inches): 2.00 Weight (Pounds): 130 General Appearance: no apparent distress, alert EENT: PERRL/EOMI, normal ENT inspection Neck: non-tender, normal alignment Cardiovascular: normal rate, regular rhythm Respiratory/Chest: decreased breath sounds Abdomen: tender Extremities: non-tender Edema: trace edema Neurologic: alert, oriented x 3 Zedner,Tenzin N. PA Jun 19, 2018 09:26
[2018-06-19 12:00] VITALS: BP 120/77
--- NOTE | 2018-06-19 15:35 | General Progress Note ---
Assessment/Plan Assessment/Plan Assessment/Recommendations # Thrombocytosis - likely related to reactive process, ovarian cancer potential hx of mets --> Continue to monitor for improvement --> Trend CBC as needed --> Jak2 has been ordered --> Smear reviewed and no abnormalities noted. *Under manual differential # ovarian cancer s/p resection with likely malignant ascites and presumed malignant effusions --> review outside imaging and treatments patient has received --> outside labs and pathology to be reviewed --> defer to outpatient oncologist for further care, patient requires followup, has followup with [facility] # Anemia of chronic disease (or of iron deficiency) due to underlying chronic medical issues, multifactorial --> Anemia workup has been ordered --> No evidence of hemolysis is noted, peripheral smear has been reviewed. --> Hgb goal >7. Transfuse prn. --> Epogen or iron at this time is not particularly indicated --> Medications have been reviewed # Leukocytosis. Likely related to underlying infection versus reactive process. --> Peripheral has been ordered, no blasts are noted --> Medications have been reviewed --> Imaging has been reviewed --> Blood cultures and urine cultures prn --> has been started on abx, empiric treatment # Shortness of breath # Large bilateral pleural effusions --> thoracentesis eval with pleural fluid studies The timing of this note does not necessarily reflect the time of the patient was seen. Greatly appreciate consultation! Subjective Constitutional: Denies: no symptoms, chills, diaphoresis, fever, malaise, weakness, other HEENT: Denies: no symptoms, eye pain, blurred vision, tearing, double vision, ear pain, ear discharge, nose pain, nose congestion, throat pain, throat swelling, mouth pain, mouth swelling, other Cardiovascular: Denies: no symptoms, chest pain, edema, irregular heart rate, lightheadedness, palpitations, syncope, other Gastrointestinal/Abdominal: Denies: no symptoms, abdomen distended, abdominal pain, black stools, tarry stools, blood in stool, constipated, diarrhea, difficulty swallowing, nausea, poor appetite, poor fluid intake, rectal bleeding , vomiting, other Genitourinary: Denies: no symptoms, burning, discharge, frequency, flank pain, hematuria, incontinence, pain, urgency, other Neurologic/Psychiatric: Denies: no symptoms, anxiety, depressed, emotional problems, headache, numbness, paresthesia, pre-existing deficit, seizure, tingling, tremors, weakness, other Endocrine: Denies: no symptoms, excessive sweating, flushing, intolerance to cold, intolerance to heat, increased hunger, increased thirst, increased urine, unexplained weight gain, unexplained weight loss, other Hematologic/Lymphatic: Denies: no symptoms, anemia, easy bleeding, easy bruising, other Allergies: Coded Allergies: No Known Allergies (Unverified , 06/17/18) Subjective 06/18: thoracentesis eval with pleural fluid studies today, plt remains elevated. 06/19: seen by bedside, no acute distress, no signs of pain. No pneumothorax is reported on CXR Objective Last 24 Hour Vital Signs Date Time Temp Pulse Resp B/P (MAP) Pulse Ox O2 Delivery O2 Flow Rate FiO2 06/19/18 12:00 97.2 103 22 120/77 (91) 96 06/19/18 09:00 Nasal Cannula 2.0 Nasal Cannula 2.0 06/19/18 08:04 101 20 Nasal Cannula 2.0 28 06/19/18 08:00 97.4 107 22 129/84 (99) 96 06/19/18 04:00 97.1 107 18 125/79 (94) 94 06/19/18 03:48 104 06/19/18 00:20 105 20 Nasal Cannula 2.0 28 06/19/18 00:00 98.1 109 20 110/78 (89) 95 06/18/18 23:59 104 06/18/18 21:00 Nasal Cannula 2.0 06/18/18 20:10 108 06/18/18 20:00 97.3 114 20 116/81 (93) 94 06/18/18 16:00 98.0 110 21 126/76 (93) 94 06/18/18 16:00 105 Intake and Output 06/18/18 06/19/18 19:00 07:00 Output Total 800 ml 800 ml Balance -800 ml -800 ml Output Urine Total 800 ml 800 ml # Voids 1 1 Laboratory Tests 06/18/18 23:00: Urine Collection Time 24, Urine Total Volume 1000, Urine Total Protein mg/dL 36 , Urine Total Protein 24 Hour 360.0H Height (Feet): 5 Height (Inches): 2.00 Weight (Pounds): 130 Objective Physical Exam General Appearance: no apparent distress, alert HEENT: normocephalic, atraumatic Neck: supple Respiratory/Chest: decreased breath sounds Cardiovascular/Chest: normal rate, regular rhythm Abdomen: non tender, soft Extremities: no edema Keegan Flores MD Jun 19, 2018 15:35
--- NOTE | 2018-06-19 15:37 | Nephrology Progress Note ---
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 monitor labs low dose lasix k supplement Subjective ROS Limited/Unobtainable: No Constitutional: Reports: malaise, weakness Objective Objective Last 24 Hour Vital Signs Date Time Temp Pulse Resp B/P (MAP) Pulse Ox O2 Delivery O2 Flow Rate FiO2 06/19/18 12:00 97.2 103 22 120/77 (91) 96 06/19/18 09:00 Nasal Cannula 2.0 Nasal Cannula 2.0 06/19/18 08:04 101 20 Nasal Cannula 2.0 28 06/19/18 08:00 97.4 107 22 129/84 (99) 96 06/19/18 04:00 97.1 107 18 125/79 (94) 94 06/19/18 03:48 104 06/19/18 00:20 105 20 Nasal Cannula 2.0 28 06/19/18 00:00 98.1 109 20 110/78 (89) 95 06/18/18 23:59 104 06/18/18 21:00 Nasal Cannula 2.0 06/18/18 20:10 108 06/18/18 20:00 97.3 114 20 116/81 (93) 94 06/18/18 16:00 98.0 110 21 126/76 (93) 94 06/18/18 16:00 105 Intake and Output 06/18/18 06/19/18 19:00 07:00 Output Total 800 ml 800 ml Balance -800 ml -800 ml Output Urine Total 800 ml 800 ml # Voids 1 1 Laboratory Tests 06/18/18 23:00: Urine Collection Time 24, Urine Total Volume 1000, Urine Total Protein mg/dL 36 , Urine Total Protein 24 Hour 360.0H Height (Feet): 5 Height (Inches): 2.00 Weight (Pounds): 130 General Appearance: no apparent distress Cardiovascular: tachycardia Respiratory/Chest: decreased breath sounds Abdomen: distended Jae Walker MD Jun 19, 2018 15:37
[2018-06-19 16:00] VITALS: BP 140/72
--- NOTE | 2018-06-19 16:00 | Pulmonology Progress Note ---
Assessment/Plan Assessment/Plan Pulmonary Progress Note Assessment/Plan Problems: (1) Pleural effusion (2) Respiratory distress (3) Ovarian carcinoma Assessment/Plan Problem List: 1. Shortness of breath 2. Large bilateral pleural effusions 3. ovarian cancer s/p resection with likely malignant ascites and presumed malignant effusions 4. Protein calorie malnutrition Plan: -thoracentesis eval with pleural fluid studies today -Monitor volumes, diuresis as able -if not infected will likely have pleurx placement on at least one side when reaccumulates until can start chemo Subjective Allergies: Coded Allergies: No Known Allergies (Unverified , 06/17/18) Subjective AFVSS x ST on 3L sp thora No cough Objective Vital Signs Noted General Appearance: WD/WN, no acute distress HEENT: normocephalic, atraumatic, anicteric, mucous membranes moist Respiratory/Chest: chest wall non-tender, lungs clear - but decreased @ bases, no respiratory distress, no accessory muscle use Cardiovascular: normal peripheral pulses, tachycardia Abdomen: normal bowel sounds, soft, non tender, no organomegaly, non distended Extremities: no cyanosis, no clubbing, other - trace edema Microbiology Date/Time Source Procedure Growth Status 06/17/18 05:36 Urine,Clean Catch Urine Culture - Preliminary Resulted Laboratory Tests 06/18/18 05:33: White Blood Count 14.5H, Red Blood Count 3.70L, Hemoglobin 10.9L, Hematocrit 32.5L, Mean Corpuscular Volume 88, Mean Corpuscular Hemoglobin 29.4, Mean Corpuscular Hemoglobin Concent 33.3, Red Cell Distribution Width 13.8, Platelet Count 863H, Mean Platelet Volume 4.5L, Neutrophils (%) (Auto) , Lymphocytes (%) (Auto) , Monocytes (%) (Auto) , Eosinophils (%) (Auto) , Basophils (%) (Auto) , Differential Total Cells Counted 100, Neutrophils % (Manual) 89H, Lymphocytes % (Manual) 3L, Monocytes % (Manual) 6, Eosinophils % (Manual) 0, Basophils % ( Manual) 0, Metamyelocytes % 1H, Myelocytes % 1H, Band Neutrophils 0, Platelet Estimate IncreasedH, Platelet Morphology Normal, Red Blood Cell Morphology Normal, Sodium Level 133L, Potassium Level 3.7, Chloride Level 97L, Carbon Dioxide Level 28, Anion Gap 8, Blood Urea Nitrogen 16, Creatinine 0.4L, Estimat Glomerular Filtration Rate , Glucose Level 104, Hemoglobin A1c 5.6, Uric Acid 3.4, Calcium Level 7.7L, Phosphorus Level 3.6, Magnesium Level 1.8, Iron Level 17L, Total Iron Binding Capacity 88L, Percent Iron Saturation 19, Unsaturated Iron Binding 71L, Ferritin 739H, Total Bilirubin 0.8, Gamma Glutamyl Transpeptidase 948H, Aspartate Amino Transf (AST/SGOT) 71H, Alanine Aminotransferase (ALT/SGPT) 46, Alkaline Phosphatase 1143H, Lactate Dehydrogenase 151, Total Creatine Kinase 12L, Troponin I 0.000, Pro-B-Type Natriuretic Peptide 171H, Total Protein 5.0L, Albumin 1.3L, Globulin 3.7, Albumin/Globulin Ratio 0.4L, Triglycerides Level 128, Cholesterol Level 187, LDL Cholesterol 134H, HDL Cholesterol 33L, Cholesterol/HDL Ratio 5.7H, Vitamin B12 Level 1114H, Folate 6.8L, Thyroid Stimulating Hormone (TSH) 0.735, Cortisol AM Sample [Pending] Current Medications Medications (Trade) Dose Ordered Sig/Susana Route PRN Reason Start Time Stop Time Status Last Admin Dose Admin Acetaminophen (Tylenol) 500 mg Q4H PRN ORAL Mild Pain/Temp > 100.5 06/17/18 09:30 07/17/18 09:29 06/17/18 18:21 Albuterol/ Ipratropium (Albuterol/ Ipratropium) 3 ml Q4H PRN HHN Shortness of Breath 06/17/18 09:30 06/22/18 09:29 Carvedilol (Coreg) 3.125 mg EVERY 12 HOURS ORAL 06/17/18 21:00 07/17/18 20:59 06/18/18 09:20 Furosemide (Lasix) 20 mg DAILY IV 06/18/18 09:00 07/18/18 08:59 06/18/18 09:20 Iopamidol (Isovue-370 150ml) 150 ml NOW PRN INJ Radiology Procedure 06/17/18 06:45 06/19/18 06:39 Pantoprazole (Protonix) 40 mg DAILY ORAL 06/18/18 09:00 07/18/18 08:59 06/18/18 09:20 Subjective ROS Limited/Unobtainable: No Allergies: Coded Allergies: No Known Allergies (Unverified , 06/17/18) Objective Last 24 Hour Vital Signs Date Time Temp Pulse Resp B/P (MAP) Pulse Ox O2 Delivery O2 Flow Rate FiO2 06/19/18 12:00 83 06/19/18 12:00 97.2 103 22 120/77 (91) 96 06/19/18 09:00 Nasal Cannula 2.0 Nasal Cannula 2.0 06/19/18 08:04 101 20 Nasal Cannula 2.0 28 06/19/18 08:00 82 06/19/18 08:00 97.4 107 22 129/84 (99) 96 06/19/18 04:00 97.1 107 18 125/79 (94) 94 06/19/18 03:48 104 06/19/18 00:20 105 20 Nasal Cannula 2.0 28 06/19/18 00:00 98.1 109 20 110/78 (89) 95 06/18/18 23:59 104 06/18/18 21:00 Nasal Cannula 2.0 06/18/18 20:10 108 06/18/18 20:00 97.3 114 20 116/81 (93) 94 06/18/18 16:00 98.0 110 21 126/76 (93) 94 06/18/18 16:00 105 Intake and Output 06/18/18 06/19/18 19:00 07:00 Output Total 800 ml 800 ml Balance -800 ml -800 ml Output Urine Total 800 ml 800 ml # Voids 1 1 Microbiology Date/Time Source Procedure Growth Status 06/17/18 05:36 Urine,Clean Catch Urine Culture - Preliminary Resulted Laboratory Tests 06/18/18 23:00: Urine Collection Time 24, Urine Total Volume 1000, Urine Total Protein mg/dL 36 , Urine Total Protein 24 Hour 360.0H 06/19/18 05:33: C-Reactive Protein, Quantitative [Pending] Current Medications Medications (Trade) Dose Ordered Sig/Susana Route PRN Reason Start Time Stop Time Status Last Admin Dose Admin Acetaminophen (Tylenol) 500 mg Q4H PRN ORAL Mild Pain/Temp > 100.5 06/17/18 09:30 07/17/18 09:29 06/17/18 18:21 Albuterol/ Ipratropium (Albuterol/ Ipratropium) 3 ml Q4H PRN HHN Shortness of Breath 06/17/18 09:30 06/22/18 09:29 Furosemide (Lasix) 20 mg DAILY IV 06/18/18 09:00 07/18/18 08:59 06/19/18 09:12 Morphine Sulfate (Morphine Sulfate) 2 mg Q4H PRN IVP Moderate pain 06/18/18 16:47 06/25/18 16:46 06/19/18 04:02 Morphine Sulfate (Morphine Sulfate) 4 mg Q4H PRN IVP Severe pain 06/18/18 16:47 06/25/18 16:46 Pantoprazole (Protonix) 40 mg DAILY ORAL 06/18/18 09:00 07/18/18 08:59 06/19/18 09:12 Potassium Chloride (K-Dur) 20 meq TWICE A DAY ORAL 06/18/18 18:00 07/18/18 17:59 06/19/18 09:12 Faisal Beltre MD Jun 19, 2018 16:00
--- NOTE | 2018-06-19 18:18 | NUR ---
NURSE NOTES: Dr. Stephenson made aware patient requesting medication for constipation, Per Dr. Stephenson colace 100 mg PO BID, Dulcolax 10 mg PO q day, MOM 30 cc PO q 4h prn. Order noted, entered, carried out.
[2018-06-19] MEDS ORDERED: Milk of Magnesia 30ml Ud ORAL PRN (18:30)
[2018-06-19] MEDS: Docusate 100mg cap ORAL SCH (18:40)
[2018-06-19 20:00] VITALS: BP 125/82
--- NOTE | 2018-06-19 20:23 | NUR ---
HAND-OFF: Report given to KOFI Aguilar.
--- NOTE | 2018-06-19 20:30 | NUR ---
NURSE NOTES: Patient in bed awake and alert x4, no s/s distress noted. Daughter at the bedside. De Santiago catheter intact and patent, draining yellow urine. No c/o pain or discomfort at this time. Instructed to use call light for assistance. Call light within reach.
--- NOTE | 2018-06-19 21:48 | Cardiology Progress Note ---
Assessment/Plan Assessment/Plan 1. Sinus tachycardia, improving, most likely due to intravascular volume depletion due to low oncotic pressure, consider albumin administration. Other etiologies include sepsis and increased tumor burden. 2. B/L pleural effusion, s/p thoracentesis 3. Metastatic ovarian cancer 4. FTT 5. Respiratory failure. 6. Encephalopathy Subjective Subjective Sinus rhythm at rate of 98. Objective Last 24 Hour Vital Signs Date Time Temp Pulse Resp B/P (MAP) Pulse Ox O2 Delivery O2 Flow Rate FiO2 06/19/18 21:00 Nasal Cannula 2.0 Nasal Cannula 2.0 06/19/18 20:00 98 06/19/18 20:00 98.2 92 19 125/82 (96) 95 06/19/18 16:00 98 06/19/18 16:00 97.3 69 20 140/72 (94) 99 06/19/18 12:00 83 06/19/18 12:00 97.2 103 22 120/77 (91) 96 06/19/18 09:00 Nasal Cannula 2.0 Nasal Cannula 2.0 06/19/18 08:04 101 20 Nasal Cannula 2.0 28 06/19/18 08:00 82 06/19/18 08:00 97.4 107 22 129/84 (99) 96 06/19/18 04:00 97.1 107 18 125/79 (94) 94 06/19/18 03:48 104 06/19/18 00:20 105 20 Nasal Cannula 2.0 28 06/19/18 00:00 98.1 109 20 110/78 (89) 95 06/18/18 23:59 104 Intake and Output 06/18/18 06/19/18 19:00 07:00 Output Total 800 ml 800 ml Balance -800 ml -800 ml Output Urine Total 800 ml 800 ml # Voids 1 1 2D Echo: LVEF 65%, Grade I LVDD, pleural effusion, RVSP 48 mmHg Laboratory Tests Test 06/18/18 23:00 06/19/18 18:15 Urine Collection Time 24 HRS Urine Total Volume 1000 ML Urine Total Protein mg/dL 36 mg/dL Urine Total Protein 24 Hour 360.0 mg/24hr (< 150) H C-Reactive Protein, Quantitative 6.1 mg/dL (0.00-0.90) H Microbiology Date/Time Source Procedure Growth Status 06/17/18 05:36 Urine,Clean Catch Urine Culture - Preliminary Resulted Objective HEENT: Atraumatic and normocephalic. Anicteric. Pupils are equal, round, and reactive to light and accommodation. Extraocular muscles intact. NECK: JVP less than 5 cm. No carotid bruit. Carotid upstrokes 2+ bilaterally. CARDIOVASCULAR: Normal S1, S2. Regular rate and rhythm. Tachycardic. No murmurs, gallops, or rubs. LUNGS: Diminished breath sounds in both bases. ABDOMEN: Soft, nontender, and nondistended. No hepatosplenomegaly. Positive bowel sounds. An abdominal incision site is clean. EXTREMITIES: No evidence of edema, clubbing, or cyanosis. Andrew Man MD Jun 19, 2018 21:47
--- NOTE | 2018-06-19 23:07 | General Progress Note ---
Assessment/Plan Problem List: (1) Ovarian carcinoma ICD Codes: C56.9 - Malignant neoplasm of unspecified ovary SNOMED: 424025713 Qualifiers: Qualified Codes: C56.9 - Malignant neoplasm of unspecified ovary (2) Respiratory distress ICD Codes: R06.03 - Acute respiratory distress SNOMED: 309943553 (3) Pleural effusion ICD Codes: J90 - Pleural effusion, not elsewhere classified SNOMED: 70720953 (4) Hypoalbuminemia ICD Codes: E88.09 - Other disorders of plasma-protein metabolism, not elsewhere classified SNOMED: 261997000 Status: progressing Assessment/Plan still sob pleural effusion resp insuff s/p resent ovarian removal and hysterectomy afebrile thoracocentesis per pulmonary distended abdomen ovarian cancer Subjective ROS Limited/Unobtainable: Yes Allergies: Coded Allergies: No Known Allergies (Unverified , 06/17/18) Objective Last 24 Hour Vital Signs Date Time Temp Pulse Resp B/P (MAP) Pulse Ox O2 Delivery O2 Flow Rate FiO2 06/19/18 21:00 Nasal Cannula 2.0 Nasal Cannula 2.0 06/19/18 20:00 98 06/19/18 20:00 98.2 92 19 125/82 (96) 95 06/19/18 16:00 98 06/19/18 16:00 97.3 69 20 140/72 (94) 99 06/19/18 12:00 83 06/19/18 12:00 97.2 103 22 120/77 (91) 96 06/19/18 09:00 Nasal Cannula 2.0 Nasal Cannula 2.0 06/19/18 08:04 101 20 Nasal Cannula 2.0 28 06/19/18 08:00 82 06/19/18 08:00 97.4 107 22 129/84 (99) 96 06/19/18 04:00 97.1 107 18 125/79 (94) 94 06/19/18 03:48 104 06/19/18 00:20 105 20 Nasal Cannula 2.0 28 06/19/18 00:00 98.1 109 20 110/78 (89) 95 06/18/18 23:59 104 Intake and Output 06/18/18 06/19/18 19:00 07:00 Output Total 800 ml 800 ml Balance -800 ml -800 ml Output Urine Total 800 ml 800 ml # Voids 1 1 Laboratory Tests 06/19/18 18:15: C-Reactive Protein, Quantitative 6.1H Height (Feet): 5 Height (Inches): 2.00 Weight (Pounds): 130 Cardiovascular: normal rate Respiratory/Chest: rhonchi - bilaterally Abdomen: soft Vane Stephenson MD Jun 19, 2018 23:07
--- NOTE | 2018-06-19 23:30 | Consultation ---
DATE OF CONSULTATION: 06/19/2018 INFECTIOUS DISEASE CONSULT CONSULTING PHYSICIAN: Eugenio Goss M.D. PRIMARY ATTENDING PHYSICIAN: Vane Stephenson M.D. REASON FOR CONSULT: Leukocytosis. HISTORY OF PRESENT ILLNESS: The patient is a 72-year-old [place] female admitted on 06/17/2018 because of shortness of breath. The patient has a history of ovarian cancer and had bilateral effusions that was drained. PAST MEDICAL HISTORY: As mentioned is ovarian cancer. On 05/26/2018, [facility] for chemotherapy, suspected malignant pleural effusion. PAST SURGICAL HISTORY: Appendectomy, hysterectomy, removal of ovaries. ALLERGIES: No known drug allergies. MEDICATIONS: Potassium chloride, morphine, Protonix, Lasix, Tylenol, albuterol and ipratropium inhaler. SOCIAL HISTORY: Single [place]. No history of alcohol or illicit drugs. REVIEW OF SYSTEMS: Limited. has abdominal pain. PHYSICAL EXAMINATION: VITAL SIGNS: Temperature 97.2, pulse 103, blood pressure is 120/77. GENERAL APPEARANCE: Seems to be thin. HEAD AND NECK: [place] conjunctivae. HEART: S1, S2 regular. Tachycardic. LUNGS: Clear. ABDOMEN: She has a scar of midline surgery. Mildly tender. Soft. EXTREMITIES: No significant edema. LABORATORY AND DIAGNOSTIC DATA: WBC 14.5, hemoglobin 10.9, hematocrit 32.5, platelet 836. BUN 16, creatinine 0.4. UA was positive for nitrite, otherwise negative. Chest x-ray showed bilateral effusions, interstitial edema. The patient had chest CT angiogram that did not show any pulmonary emboli, showed bilateral pleural effusions, ascites, cholelithiasis, anasarca. IMPRESSION: 1. Leukocytosis, likely reactive. 2. Ovarian cancer. 3. Pleural effusion, likely malignant. 4. Thrombocythemia. 5. Anemia. RECOMMENDATIONS: We will follow up CBC. We will observe her off antibiotics. If the patient develops fever or other symptoms, we will consider start of antibiotic. I thank Dr. Stephenson for involving me in the care of this patient. Eugenio Goss M.D. DR: LILIBETH JOB#: [id number] CC: CHRISTOPHER
[2018-06-20] VITALS: BP 120/79
[2018-06-20 04:00] VITALS: BP 130/85
--- NOTE | 2018-06-20 07:35 | NUR ---
HAND-OFF: Report given to KOFI Whitehead.
--- NOTE | 2018-06-20 07:40 | NUR ---
NURSE NOTES: Received report from KOFI Aguilar. Patient is in stable condition. No acute distress/SOB noted. Patient denies any pain/discomfort. Will continue plan of care.
[2018-06-20 07:49] LABS: HEMATOCRIT 33.1 % (37.0-47.0); HEMOGLOBIN 11.1 G/DL (12.0-16.0); MEAN CORPUSCULAR VOLUME 88 FL (80-99); PLATELET COUNT 917 K/UL (150-450); RED BLOOD COUNT 3.75 M/UL (4.20-5.40); RED CELL DISTRIBUTION WIDTH 13.8 % (11.6-14.8)
[2018-06-20 08:00] VITALS: BP 135/89
[2018-06-20 08:09] LABS: ALANINE AMINOTRANSFERASE 80 U/L (12-78); ALBUMIN 1.3 G/DL (3.4-5.0); ALBUMIN/GLOBULIN RATIO 0.4 (1.0-2.7); ALKALINE PHOSPHATASE 1527 U/L (46-116); ANION GAP 5 mmol/L (5-15); ASPARTATE AMINO TRANSFERASE 160 U/L (15-37); BILIRUBIN,TOTAL 0.8 MG/DL (0.2-1.0); BLOOD UREA NITROGEN 20 mg/dL (7-18); CALCIUM 8.3 MG/DL (8.5-10.1); CARBON DIOXIDE 27 MMOL/L (21-32); CHLORIDE 95 MMOL/L (98-107); CREATININE 0.3 MG/DL (0.55-1.30); GAMMA GLUTAMYL TRANSPEPTIDASE 1248 U/L (5-85); PHOSPHORUS 3.2 MG/DL (2.5-4.9); POTASSIUM 3.9 MMOL/L (3.5-5.1); SODIUM 127 MMOL/L (136-145)
--- NOTE | 2018-06-20 08:39 | Pulmonology Progress Note ---
Assessment/Plan Assessment/Plan Pulmonary Progress Note Assessment/Plan Problems: (1) Pleural effusion (2) Respiratory distress (3) Ovarian carcinoma Assessment/Plan Problem List: 1. Shortness of breath 2. Large bilateral pleural effusions 3. ovarian cancer s/p resection with likely malignant ascites and presumed malignant effusions 4. Protein calorie malnutrition Plan: -thoracentesis eval with pleural fluid studies today -Monitor volumes, diuresis as able -if not infected will likely have pleurx placement on at least one side when reaccumulates until can start chemo Subjective Allergies: Coded Allergies: No Known Allergies (Unverified , 06/17/18) Subjective AFVSS x ST on 3L sp thora No cough Objective Vital Signs Noted General Appearance: WD/WN, no acute distress HEENT: normocephalic, atraumatic, anicteric, mucous membranes moist Respiratory/Chest: chest wall non-tender, lungs clear - but decreased @ bases, no respiratory distress, no accessory muscle use Cardiovascular: normal peripheral pulses, tachycardia Abdomen: normal bowel sounds, soft, non tender, no organomegaly, non distended Extremities: no cyanosis, no clubbing, other - trace edema Microbiology Date/Time Source Procedure Growth Status 06/17/18 05:36 Urine,Clean Catch Urine Culture - Preliminary Resulted Laboratory Tests 06/18/18 05:33: White Blood Count 14.5H, Red Blood Count 3.70L, Hemoglobin 10.9L, Hematocrit 32.5L, Mean Corpuscular Volume 88, Mean Corpuscular Hemoglobin 29.4, Mean Corpuscular Hemoglobin Concent 33.3, Red Cell Distribution Width 13.8, Platelet Count 863H, Mean Platelet Volume 4.5L, Neutrophils (%) (Auto) , Lymphocytes (%) (Auto) , Monocytes (%) (Auto) , Eosinophils (%) (Auto) , Basophils (%) (Auto) , Differential Total Cells Counted 100, Neutrophils % (Manual) 89H, Lymphocytes % (Manual) 3L, Monocytes % (Manual) 6, Eosinophils % (Manual) 0, Basophils % ( Manual) 0, Metamyelocytes % 1H, Myelocytes % 1H, Band Neutrophils 0, Platelet Estimate IncreasedH, Platelet Morphology Normal, Red Blood Cell Morphology Normal, Sodium Level 133L, Potassium Level 3.7, Chloride Level 97L, Carbon Dioxide Level 28, Anion Gap 8, Blood Urea Nitrogen 16, Creatinine 0.4L, Estimat Glomerular Filtration Rate , Glucose Level 104, Hemoglobin A1c 5.6, Uric Acid 3.4, Calcium Level 7.7L, Phosphorus Level 3.6, Magnesium Level 1.8, Iron Level 17L, Total Iron Binding Capacity 88L, Percent Iron Saturation 19, Unsaturated Iron Binding 71L, Ferritin 739H, Total Bilirubin 0.8, Gamma Glutamyl Transpeptidase 948H, Aspartate Amino Transf (AST/SGOT) 71H, Alanine Aminotransferase (ALT/SGPT) 46, Alkaline Phosphatase 1143H, Lactate Dehydrogenase 151, Total Creatine Kinase 12L, Troponin I 0.000, Pro-B-Type Natriuretic Peptide 171H, Total Protein 5.0L, Albumin 1.3L, Globulin 3.7, Albumin/Globulin Ratio 0.4L, Triglycerides Level 128, Cholesterol Level 187, LDL Cholesterol 134H, HDL Cholesterol 33L, Cholesterol/HDL Ratio 5.7H, Vitamin B12 Level 1114H, Folate 6.8L, Thyroid Stimulating Hormone (TSH) 0.735, Cortisol AM Sample [Pending] Current Medications Medications (Trade) Dose Ordered Sig/Susana Route PRN Reason Start Time Stop Time Status Last Admin Dose Admin Acetaminophen (Tylenol) 500 mg Q4H PRN ORAL Mild Pain/Temp > 100.5 06/17/18 09:30 07/17/18 09:29 06/17/18 18:21 Albuterol/ Ipratropium (Albuterol/ Ipratropium) 3 ml Q4H PRN HHN Shortness of Breath 06/17/18 09:30 06/22/18 09:29 Carvedilol (Coreg) 3.125 mg EVERY 12 HOURS ORAL 06/17/18 21:00 07/17/18 20:59 06/18/18 09:20 Furosemide (Lasix) 20 mg DAILY IV 06/18/18 09:00 07/18/18 08:59 06/18/18 09:20 Iopamidol (Isovue-370 150ml) 150 ml NOW PRN INJ Radiology Procedure 06/17/18 06:45 06/19/18 06:39 Pantoprazole (Protonix) 40 mg DAILY ORAL 06/18/18 09:00 07/18/18 08:59 06/18/18 09:20 Subjective ROS Limited/Unobtainable: No Allergies: Coded Allergies: No Known Allergies (Unverified , 06/17/18) Objective Last 24 Hour Vital Signs Date Time Temp Pulse Resp B/P (MAP) Pulse Ox O2 Delivery O2 Flow Rate FiO2 06/20/18 08:00 97.1 94 20 135/89 (104) 94 06/20/18 04:00 98 06/20/18 04:00 98.1 98 19 130/85 (100) 95 06/20/18 00:00 90 06/20/18 00:00 97.5 90 17 120/79 (93) 96 06/19/18 21:00 Nasal Cannula 2.0 Nasal Cannula 2.0 06/19/18 20:00 98 06/19/18 20:00 98.2 92 19 125/82 (96) 95 06/19/18 16:00 98 06/19/18 16:00 97.3 69 20 140/72 (94) 99 06/19/18 12:00 83 06/19/18 12:00 97.2 103 22 120/77 (91) 96 06/19/18 09:00 Nasal Cannula 2.0 Nasal Cannula 2.0 Intake and Output 06/19/18 06/20/18 19:00 07:00 Intake Total 600 ml Output Total 500 ml 500 ml Balance 100 ml -500 ml Intake Oral 600 ml Output Urine Total 500 ml 500 ml # Bowel Movements 1 Laboratory Tests 06/19/18 18:15: C-Reactive Protein, Quantitative 6.1H 06/20/18 07:15: White Blood Count 15.0H, Red Blood Count 3.75L, Hemoglobin 11.1L, Hematocrit 33.1L, Mean Corpuscular Volume 88, Mean Corpuscular Hemoglobin 29.4, Mean Corpuscular Hemoglobin Concent 33.4, Red Cell Distribution Width 13.8, Platelet Count 917H, Mean Platelet Volume 4.8L, Neutrophils (%) (Auto) , Lymphocytes (%) (Auto) , Monocytes (%) (Auto) , Eosinophils (%) (Auto) , Basophils (%) (Auto) , Neutrophils % (Manual) [Pending], Lymphocytes % (Manual) [Pending], Platelet Estimate [Pending], Platelet Morphology [Pending], Sodium Level 127L, Potassium Level 3.9, Chloride Level 95L, Carbon Dioxide Level 27, Anion Gap 5, Blood Urea Nitrogen 20H, Creatinine 0.3L, Estimat Glomerular Filtration Rate , Glucose Level 131H, Uric Acid 3.4, Calcium Level 8.3L, Phosphorus Level 3.2, Magnesium Level 1.9, Total Bilirubin 0.8, Gamma Glutamyl Transpeptidase 1248H, Aspartate Amino Transf (AST/SGOT) 160H, Alanine Aminotransferase (ALT/SGPT) 80H, Alkaline Phosphatase 1527H, Pro-B-Type Natriuretic Peptide 104, Total Protein 4.9L, Albumin 1.3L, Globulin 3.6, Albumin/Globulin Ratio 0.4L Current Medications Medications (Trade) Dose Ordered Sig/Susana Route PRN Reason Start Time Stop Time Status Last Admin Dose Admin Acetaminophen (Tylenol) 500 mg Q4H PRN ORAL Mild Pain/Temp > 100.5 06/17/18 09:30 07/17/18 09:29 06/17/18 18:21 Albuterol/ Ipratropium (Albuterol/ Ipratropium) 3 ml Q4H PRN HHN Shortness of Breath 06/17/18 09:30 06/22/18 09:29 Bisacodyl (Dulcolax) 10 mg DAILY ORAL 06/20/18 09:00 07/20/18 08:59 Docusate Sodium (Colace) 100 mg TWICE A DAY ORAL 06/19/18 19:00 07/19/18 18:59 06/19/18 18:40 Furosemide (Lasix) 20 mg DAILY IV 06/18/18 09:00 07/18/18 08:59 06/19/18 09:12 Magnesium Hydroxide (Mom) 30 ml Q4H PRN ORAL Constipation 06/19/18 18:30 07/19/18 18:29 06/19/18 22:49 Morphine Sulfate (Morphine Sulfate) 2 mg Q4H PRN IVP Moderate pain 06/18/18 16:47 06/25/18 16:46 06/19/18 04:02 Morphine Sulfate (Morphine Sulfate) 4 mg Q4H PRN IVP Severe pain 06/18/18 16:47 06/25/18 16:46 Pantoprazole (Protonix) 40 mg DAILY ORAL 06/18/18 09:00 07/18/18 08:59 06/19/18 09:12 Potassium Chloride (K-Dur) 20 meq TWICE A DAY ORAL 2/7/19 18:00 07/18/18 17:59 06/19/18 18:40 Faisal Beltre MD Jun 20, 2018 08:39
[2018-06-20] MEDS: Docusate 100mg cap ORAL SCH ×2 (08:45→17:50)
[2018-06-20] MEDS: Bisacodyl EC 5mg tab ORAL SCH (08:45)
--- NOTE | 2018-06-20 10:38 | Infectious Diseases Prog Note ---
"Assessment/Plan Assessment/Plan antibiotics : none A 1. streptococcus | fungal UTI 2. r/o cholecystitis increased LFT 3. pleural effusion s/p thoracentesis 4. leucocytosis 5. ovarian cancer P 1. start ceftriaxone, fluconazole 2. HIDA scan 3. will follow up cultures Subjective ROS Limited/Unobtainable: Yes Allergies: Coded Allergies: No Known Allergies (Unverified , 06/17/18) Objective Vital Signs Last 24 Hour Vital Signs Date Time Temp Pulse Resp B/P (MAP) Pulse Ox O2 Delivery O2 Flow Rate FiO2 06/20/18 09:24 104 20 Nasal Cannula 2.0 28 06/20/18 09:00 Nasal Cannula 2.0 Nasal Cannula 2.0 06/20/18 08:00 97.1 94 20 135/89 (104) 94 06/20/18 08:00 96 06/20/18 04:00 98 06/20/18 04:00 98.1 98 19 130/85 (100) 95 06/20/18 00:00 90 06/20/18 00:00 97.5 90 17 120/79 (93) 96 06/19/18 21:00 Nasal Cannula 2.0 Nasal Cannula 2.0 06/19/18 20:00 98 06/19/18 20:00 98.2 92 19 125/82 (96) 95 06/19/18 16:00 98 06/19/18 16:00 97.3 69 20 140/72 (94) 99 06/19/18 12:00 83 06/19/18 12:00 97.2 103 22 120/77 (91) 96 Height (Feet): 5 Height (Inches): 2.00 Weight (Pounds): 130 Respiratory/Chest: lungs clear Cardiovascular: normal rate, regular rhythm, no gallop/murmur Abdomen: soft, non tender, other - wound clean Extremities: no edema Laboratory Tests Test 06/19/18 18:15 06/20/18 07:15 C-Reactive Protein, Quantitative 6.1 mg/dL (0.00-0.90) H White Blood Count 15.0 K/UL (4.8-10.8) H Red Blood Count 3.75 M/UL (4.20-5.40) L Hemoglobin 11.1 G/DL (12.0-16.0) L Hematocrit 33.1 % (37.0-47.0) L Mean Corpuscular Volume 88 FL (80-99) Mean Corpuscular Hemoglobin 29.4 PG (27.0-31.0) Mean Corpuscular Hemoglobin Concent 33.4 G/DL (32.0-36.0) Red Cell Distribution Width 13.8 % (11.6-14.8) Platelet Count 917 K/UL (150-450) H Mean Platelet Volume 4.8 FL (6.5-10.1) L Neutrophils (%) (Auto) % (45.0-75.0) Lymphocytes (%) (Auto) % (20.0-45.0) Monocytes (%) (Auto) % (1.0-10.0) Eosinophils (%) (Auto) % (0.0-3.0) Basophils (%) (Auto) % (0.0-2.0) Neutrophils % (Manual) Pending Lymphocytes % (Manual) Pending Platelet Estimate Pending Platelet Morphology Pending Sodium Level 127 MMOL/L (136-145) L Potassium Level 3.9 MMOL/L (3.5-5.1) Chloride Level 95 MMOL/L (98-107) L Carbon Dioxide Level 27 MMOL/L (21-32) Anion Gap 5 mmol/L (5-15) Blood Urea Nitrogen 20 mg/dL (7-18) H Creatinine 0.3 MG/DL (0.55-1.30) L Estimat Glomerular Filtration Rate mL/min (>60) Glucose Level 131 MG/DL (74-106) H Uric Acid 3.4 MG/DL (2.6-7.2) Calcium Level 8.3 MG/DL (8.5-10.1) L Phosphorus Level 3.2 MG/DL (2.5-4.9) Magnesium Level 1.9 MG/DL (1.8-2.4) Total Bilirubin 0.8 MG/DL (0.2-1.0) Gamma Glutamyl Transpeptidase 1248 U/L (5-85) H Aspartate Amino Transf (AST/SGOT) 160 U/L (15-37) H Alanine Aminotransferase (ALT/SGPT) 80 U/L (12-78) H Alkaline Phosphatase 1527 U/L (46-116) H Pro-B-Type Natriuretic Peptide 104 pg/mL (0-125) Total Protein 4.9 G/DL (6.4-8.2) L Albumin 1.3 G/DL (3.4-5.0) L Globulin 3.6 g/dL Albumin/Globulin Ratio 0.4 (1.0-2.7) L Current Medications Medications (Trade) Dose Ordered Sig/Susana Route PRN Reason Start Time Stop Time Status Last Admin Dose Admin Acetaminophen (Tylenol) 500 mg Q4H PRN ORAL Mild Pain/Temp > 100.5 06/17/18 09:30 07/17/18 09:29 06/17/18 18:21 Albuterol/ Ipratropium (Albuterol/ Ipratropium) 3 ml Q4H PRN HHN Shortness of Breath 06/17/18 09:30 06/22/18 09:29 Bisacodyl (Dulcolax) 10 mg DAILY ORAL 06/20/18 09:00 07/20/18 08:59 06/20/18 08:45 Docusate Sodium (Colace) 100 mg TWICE A DAY ORAL 06/19/18 19:00 07/19/18 18:59 06/20/18 08:45 Furosemide (Lasix) 20 mg DAILY IV 06/18/18 09:00 07/18/18 08:59 06/20/18 08:45 Magnesium Hydroxide (Mom) 30 ml Q4H PRN ORAL Constipation 06/19/18 18:30 07/19/18 18:29 06/19/18 22:49 Morphine Sulfate (Morphine Sulfate) 2 mg Q4H PRN IVP Moderate pain 06/18/18 16:47 06/25/18 16:46 06/19/18 04:02 Morphine Sulfate (Morphine Sulfate) 4 mg Q4H PRN IVP Severe pain 06/18/18 16:47 06/25/18 16:46 Pantoprazole (Protonix) 40 mg DAILY ORAL 06/18/18 09:00 07/18/18 08:59 06/20/18 08:45 Potassium Chloride (K-Dur) 20 meq TWICE A DAY ORAL 06/18/18 18:00 07/18/18 17:59 06/20/18 08:45 Aurora Phillips MD Jun 20, 2018 10:38"
--- NOTE | 2018-06-20 11:41 | Nephrology Progress Note ---
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 monitor labs low dose lasix k supplement Subjective ROS Limited/Unobtainable: No Constitutional: Reports: malaise Objective Objective Last 24 Hour Vital Signs Date Time Temp Pulse Resp B/P (MAP) Pulse Ox O2 Delivery O2 Flow Rate FiO2 06/20/18 09:24 104 20 Nasal Cannula 2.0 28 06/20/18 09:00 Nasal Cannula 2.0 Nasal Cannula 2.0 06/20/18 08:00 97.1 94 20 135/89 (104) 94 06/20/18 08:00 96 06/20/18 04:00 98 06/20/18 04:00 98.1 98 19 130/85 (100) 95 06/20/18 00:00 90 06/20/18 00:00 97.5 90 17 120/79 (93) 96 06/19/18 21:00 Nasal Cannula 2.0 Nasal Cannula 2.0 06/19/18 20:00 98 06/19/18 20:00 98.2 92 19 125/82 (96) 95 06/19/18 16:00 98 06/19/18 16:00 97.3 69 20 140/72 (94) 99 06/19/18 12:00 83 06/19/18 12:00 97.2 103 22 120/77 (91) 96 Intake and Output 06/19/18 06/20/18 19:00 07:00 Intake Total 600 ml Output Total 500 ml 500 ml Balance 100 ml -500 ml Intake Oral 600 ml Output Urine Total 500 ml 500 ml # Bowel Movements 1 Laboratory Tests 06/19/18 18:15: C-Reactive Protein, Quantitative 6.1H 06/20/18 07:15: White Blood Count 15.0H, Red Blood Count 3.75L, Hemoglobin 11.1L, Hematocrit 33.1L, Mean Corpuscular Volume 88, Mean Corpuscular Hemoglobin 29.4, Mean Corpuscular Hemoglobin Concent 33.4, Red Cell Distribution Width 13.8, Platelet Count 917H, Mean Platelet Volume 4.8L, Neutrophils (%) (Auto) , Lymphocytes (%) (Auto) , Monocytes (%) (Auto) , Eosinophils (%) (Auto) , Basophils (%) (Auto) , Neutrophils % (Manual) [Pending], Lymphocytes % (Manual) [Pending], Platelet Estimate [Pending], Platelet Morphology [Pending], Sodium Level 127L, Potassium Level 3.9, Chloride Level 95L, Carbon Dioxide Level 27, Anion Gap 5, Blood Urea Nitrogen 20H, Creatinine 0.3L, Estimat Glomerular Filtration Rate , Glucose Level 131H, Uric Acid 3.4, Calcium Level 8.3L, Phosphorus Level 3.2, Magnesium Level 1.9, Total Bilirubin 0.8, Gamma Glutamyl Transpeptidase 1248H, Aspartate Amino Transf (AST/SGOT) 160H, Alanine Aminotransferase (ALT/SGPT) 80H, Alkaline Phosphatase 1527H, Pro-B-Type Natriuretic Peptide 104, Total Protein 4.9L, Albumin 1.3L, Globulin 3.6, Albumin/Globulin Ratio 0.4L Height (Feet): 5 Height (Inches): 2.00 Weight (Pounds): 130 General Appearance: no apparent distress Cardiovascular: tachycardia Respiratory/Chest: decreased breath sounds Abdomen: distended Jae Walker MD Jun 20, 2018 11:41
[2018-06-20 12:00] VITALS: BP 135/89
[2018-06-20] MEDS: cefTRIAXone 1 GM in D5W 55 ML IVPB SCH (12:22)
[2018-06-20] MEDS: Fluconazole 100mg tab ORAL SCH (12:24)
[2018-06-20] MEDS ORDERED: NaCl 3% 500ml 250 ML IV ONE (14:00)
[2018-06-20] MEDS: Morphine Sulfate 2mg/ml Inj(IV/IM USE ONLY) IVP PRN ×2 (15:00→21:22)
[2018-06-20 16:00] VITALS: BP 133/82
--- NOTE | 2018-06-20 18:02 | General Progress Note ---
Assessment/Plan Problem List: (1) Ovarian carcinoma ICD Codes: C56.9 - Malignant neoplasm of unspecified ovary SNOMED: 114529642 Qualifiers: Qualified Codes: C56.9 - Malignant neoplasm of unspecified ovary (2) Respiratory distress ICD Codes: R06.03 - Acute respiratory distress SNOMED: 591432521 (3) Pleural effusion ICD Codes: J90 - Pleural effusion, not elsewhere classified SNOMED: 19980907 (4) Hypoalbuminemia ICD Codes: E88.09 - Other disorders of plasma-protein metabolism, not elsewhere classified SNOMED: 919618199 Status: unchanged Assessment/Plan still sob pleural effusion resp insuff s/p resent ovarian removal and hysterectomy reviewed chart and labs and meds thoracocentesis per pulmonary Subjective Allergies: Coded Allergies: No Known Allergies (Unverified , 06/17/18) Subjective sob Objective Last 24 Hour Vital Signs Date Time Temp Pulse Resp B/P (MAP) Pulse Ox O2 Delivery O2 Flow Rate FiO2 06/20/18 16:00 96 06/20/18 16:00 97.0 95 18 133/82 (99) 96 06/20/18 12:00 97.2 98 20 135/89 (104) 97 06/20/18 12:00 95 06/20/18 09:24 104 20 Nasal Cannula 2.0 28 06/20/18 09:00 Nasal Cannula 2.0 Nasal Cannula 2.0 06/20/18 08:00 97.1 94 20 135/89 (104) 94 06/20/18 08:00 96 06/20/18 04:00 98 06/20/18 04:00 98.1 98 19 130/85 (100) 95 06/20/18 00:00 90 06/20/18 00:00 97.5 90 17 120/79 (93) 96 06/19/18 21:00 Nasal Cannula 2.0 Nasal Cannula 2.0 06/19/18 20:00 98 06/19/18 20:00 98.2 92 19 125/82 (96) 95 Intake and Output 06/19/18 06/20/18 19:00 07:00 Intake Total 600 ml Output Total 500 ml 500 ml Balance 100 ml -500 ml Intake Oral 600 ml Output Urine Total 500 ml 500 ml # Bowel Movements 1 Laboratory Tests 06/19/18 18:15: C-Reactive Protein, Quantitative 6.1H 06/20/18 07:15: White Blood Count 15.0H, Red Blood Count 3.75L, Hemoglobin 11.1L, Hematocrit 33.1L, Mean Corpuscular Volume 88, Mean Corpuscular Hemoglobin 29.4, Mean Corpuscular Hemoglobin Concent 33.4, Red Cell Distribution Width 13.8, Platelet Count 917H, Mean Platelet Volume 4.8L, Neutrophils (%) (Auto) , Lymphocytes (%) (Auto) , Monocytes (%) (Auto) , Eosinophils (%) (Auto) , Basophils (%) (Auto) , Differential Total Cells Counted 100, Neutrophils % (Manual) 86H, Lymphocytes % (Manual) 8L, Monocytes % (Manual) 6, Eosinophils % (Manual) 0, Basophils % ( Manual) 0, Band Neutrophils 0, Platelet Estimate IncreasedH, Platelet Morphology Normal, Red Blood Cell Morphology Normal, Sodium Level 127L, Potassium Level 3.9, Chloride Level 95L, Carbon Dioxide Level 27, Anion Gap 5, Blood Urea Nitrogen 20H, Creatinine 0.3L, Estimat Glomerular Filtration Rate , Glucose Level 131H, Uric Acid 3.4, Calcium Level 8.3L, Phosphorus Level 3.2, Magnesium Level 1.9, Total Bilirubin 0.8, Gamma Glutamyl Transpeptidase 1248H, Aspartate Amino Transf (AST/SGOT) 160H, Alanine Aminotransferase (ALT/SGPT) 80H , Alkaline Phosphatase 1527H, Pro-B-Type Natriuretic Peptide 104, Total Protein 4.9L, Albumin 1.3L, Globulin 3.6, Albumin/Globulin Ratio 0.4L Height (Feet): 5 Height (Inches): 2.00 Weight (Pounds): 130 Respiratory/Chest: rhonchi - bilaterally Abdomen: tender Vane Stephenson MD Jun 20, 2018 18:02
--- NOTE | 2018-06-20 19:17 | NUR ---
HAND-OFF: Report given to KOFI Cox. Patient is in stable condition. Endorsed plan of care.
--- NOTE | 2018-06-20 19:27 | NUR ---
NURSE NOTES: Weston Whitehead RN. Patient on bed awake, AOx4, japanese speaking with family member at bedside. no complaints of pain at this time. No signs of distress noted. Iv site intact and patent. Patient requesting for sleeping medication. Md Dr. Stephenson denied request d/t her condition. Made patient aware. Patient verbalized understanding.
[2018-06-20] MEDS ORDERED: Tubing IV Secondary IV ONE (19:59)
[2018-06-20] MEDS ORDERED: NS 275ml ONE (19:59)
[2018-06-20 20:00] VITALS: BP 120/83
--- NOTE | 2018-06-20 23:24 | Cardiology Progress Note ---
Assessment/Plan Assessment/Plan 1. Sinus tachycardia, improving, most likely due to intravascular volume depletion due to low oncotic pressure, consider albumin administration. Other etiologies include sepsis and increased tumor burden. 2. B/L pleural effusion, s/p thoracentesis 3. Metastatic ovarian cancer 4. FTT 5. Respiratory failure. 6. Encephalopathy 7. Moderate pulmonary HTN. Subjective Subjective Sinus rhythm at rate of 97. Objective Last 24 Hour Vital Signs Date Time Temp Pulse Resp B/P (MAP) Pulse Ox O2 Delivery O2 Flow Rate FiO2 06/20/18 21:00 Nasal Cannula 2.0 Nasal Cannula 2.0 06/20/18 20:00 97.8 100 20 120/83 (95) 96 06/20/18 19:38 97 06/20/18 16:00 96 06/20/18 16:00 97.0 95 18 133/82 (99) 96 06/20/18 12:00 97.2 98 20 135/89 (104) 97 06/20/18 12:00 95 06/20/18 09:24 104 20 Nasal Cannula 2.0 28 06/20/18 09:00 Nasal Cannula 2.0 Nasal Cannula 2.0 06/20/18 08:00 97.1 94 20 135/89 (104) 94 06/20/18 08:00 96 06/20/18 04:00 98 06/20/18 04:00 98.1 98 19 130/85 (100) 95 06/20/18 00:00 90 06/20/18 00:00 97.5 90 17 120/79 (93) 96 Intake and Output 06/19/18 06/20/18 19:00 07:00 Intake Total 600 ml Output Total 500 ml 500 ml Balance 100 ml -500 ml Intake Oral 600 ml Output Urine Total 500 ml 500 ml # Bowel Movements 1 2D Echo: LVEF 65%, Grade I LVDD, pleural effusion, RVSP 48 mmHg Laboratory Tests Test 06/20/18 07:15 White Blood Count 15.0 K/UL (4.8-10.8) H Red Blood Count 3.75 M/UL (4.20-5.40) L Hemoglobin 11.1 G/DL (12.0-16.0) L Hematocrit 33.1 % (37.0-47.0) L Mean Corpuscular Volume 88 FL (80-99) Mean Corpuscular Hemoglobin 29.4 PG (27.0-31.0) Mean Corpuscular Hemoglobin Concent 33.4 G/DL (32.0-36.0) Red Cell Distribution Width 13.8 % (11.6-14.8) Platelet Count 917 K/UL (150-450) H Mean Platelet Volume 4.8 FL (6.5-10.1) L Neutrophils (%) (Auto) % (45.0-75.0) Lymphocytes (%) (Auto) % (20.0-45.0) Monocytes (%) (Auto) % (1.0-10.0) Eosinophils (%) (Auto) % (0.0-3.0) Basophils (%) (Auto) % (0.0-2.0) Differential Total Cells Counted 100 Neutrophils % (Manual) 86 % (45-75) H Lymphocytes % (Manual) 8 % (20-45) L Monocytes % (Manual) 6 % (1-10) Eosinophils % (Manual) 0 % (0-3) Basophils % (Manual) 0 % (0-2) Band Neutrophils 0 % (0-8) Platelet Estimate Increased H Platelet Morphology Normal Red Blood Cell Morphology Normal Sodium Level 127 MMOL/L (136-145) L Potassium Level 3.9 MMOL/L (3.5-5.1) Chloride Level 95 MMOL/L (98-107) L Carbon Dioxide Level 27 MMOL/L (21-32) Anion Gap 5 mmol/L (5-15) Blood Urea Nitrogen 20 mg/dL (7-18) H Creatinine 0.3 MG/DL (0.55-1.30) L Estimat Glomerular Filtration Rate mL/min (>60) Glucose Level 131 MG/DL (74-106) H Uric Acid 3.4 MG/DL (2.6-7.2) Calcium Level 8.3 MG/DL (8.5-10.1) L Phosphorus Level 3.2 MG/DL (2.5-4.9) Magnesium Level 1.9 MG/DL (1.8-2.4) Total Bilirubin 0.8 MG/DL (0.2-1.0) Gamma Glutamyl Transpeptidase 1248 U/L (5-85) H Aspartate Amino Transf (AST/SGOT) 160 U/L (15-37) H Alanine Aminotransferase (ALT/SGPT) 80 U/L (12-78) H Alkaline Phosphatase 1527 U/L (46-116) H Pro-B-Type Natriuretic Peptide 104 pg/mL (0-125) Total Protein 4.9 G/DL (6.4-8.2) L Albumin 1.3 G/DL (3.4-5.0) L Globulin 3.6 g/dL Albumin/Globulin Ratio 0.4 (1.0-2.7) L Objective HEENT: Atraumatic and normocephalic. Anicteric. Pupils are equal, round, and reactive to light and accommodation. Extraocular muscles intact. NECK: JVP less than 5 cm. No carotid bruit. Carotid upstrokes 2+ bilaterally. CARDIOVASCULAR: Normal S1, S2. Regular rate and rhythm. Tachycardic. No murmurs, gallops, or rubs. LUNGS: Diminished breath sounds in both bases. ABDOMEN: Soft, nontender, and nondistended. No hepatosplenomegaly. Positive bowel sounds. An abdominal incision site is clean. EXTREMITIES: No evidence of edema, clubbing, or cyanosis. Andrew Man MD Jun 20, 2018 23:24
[2018-06-21] VITALS: BP 120/85
[2018-06-21 04:00] VITALS: BP 131/85
--- NOTE | 2018-06-21 07:07 | NUR ---
HAND-OFF: Report given to KOFI Whitehead. Endorsed plan of care.
--- NOTE | 2018-06-21 07:14 | NUR ---
NURSE NOTES: Received report from April KIRBY. patient alert and oriented X4 and is in stable condition. Receiving o2 2L\m NC, bed is in low position call light in reach No distress/SOB noted. Will follow plan of care.
[2018-06-21 07:45] LABS: HEMOGLOBIN 11.4 G/DL (12.0-16.0); MEAN CORPUSCULAR VOLUME 90 FL (80-99); PLATELET COUNT 937 K/UL (150-450); RED BLOOD COUNT 3.91 M/UL (4.20-5.40); RED CELL DISTRIBUTION WIDTH 13.8 % (11.6-14.8); WHITE BLOOD COUNT 12.3 K/UL (4.8-10.8)
--- NOTE | 2018-06-21 07:59 | NUR ---
NURSE NOTES: Informed Dr. Flores that pt's platelet count is 937 and patient refuses SCD. Heparin 5000 units subq q12hr order carried out.
[2018-06-21 08:00] VITALS: BP 127/89
[2018-06-21 08:13] LABS: ALANINE AMINOTRANSFERASE 90 U/L (12-78); ALBUMIN 1.5 G/DL (3.4-5.0); ALBUMIN/GLOBULIN RATIO 0.4 (1.0-2.7); ALKALINE PHOSPHATASE 1422 U/L (46-116); ANION GAP 6 mmol/L (5-15); ASPARTATE AMINO TRANSFERASE 133 U/L (15-37); BILIRUBIN,TOTAL 0.5 MG/DL (0.2-1.0); BLOOD UREA NITROGEN 13 mg/dL (7-18); CALCIUM 7.9 MG/DL (8.5-10.1); CARBON DIOXIDE 32 MMOL/L (21-32); CHLORIDE 98 MMOL/L (98-107); CREATININE 0.5 MG/DL (0.55-1.30); PHOSPHORUS 3.5 MG/DL (2.5-4.9); POTASSIUM 3.7 MMOL/L (3.5-5.1); SODIUM 136 MMOL/L (136-145)
[2018-06-21] MEDS: cefTRIAXone 1 GM in D5W 55 ML IVPB SCH (08:22)
[2018-06-21] MEDS: Bisacodyl EC 5mg tab ORAL SCH (08:23)
[2018-06-21] MEDS: Docusate 100mg cap ORAL SCH ×2 (08:23→17:47)
[2018-06-21] MEDS: Fluconazole 100mg tab ORAL SCH (08:23)
[2018-06-21] MEDS: Heparin 5000 units/ml inj SUBQ SCH ×2 (08:25→21:16)
--- NOTE | 2018-06-21 09:29 | NUR ---
CASE MANAGEMENT: REVIEW 06/21/2018 SI: PLEURAL EFFUSION. T 97.1 HR 97 RR 20 B/P 127/89 SATS 95% ON 2L/NC WBC 12.3 PLT 937 CR 0.5 GLU 144 CA 7.9 AST 133 ALT 90 ALP 1422 IS: K DUR PO BID PROTONIX PO QD DULCOLAX PO QD CEFTRIAXONE IV QD DIFLUCAN PO QD LASIX IV Q8H TELE STATUS DCP: PATIENT IS FROM HOME
--- NOTE | 2018-06-21 09:46 | General Progress Note ---
Assessment/Plan Assessment/Plan (1) Intractable pain (2) Ovarian cancer Patient to be continued on Morphine. Dr. Breaux and he concurred. Subjective Date patient seen: Jun 21, 2018 Time patient seen: 08:15 - am Constitutional: Reports: weakness HEENT: Reports: no symptoms Cardiovascular: Reports: no symptoms Respiratory: Reports: SOB with excertion Gastrointestinal/Abdominal: Reports: no symptoms Genitourinary: Reports: no symptoms Neurologic/Psychiatric: Reports: weakness Endocrine: Reports: no symptoms Hematologic/Lymphatic: Reports: no symptoms Allergies: Coded Allergies: No Known Allergies (Unverified , 06/17/18) Subjective Patient is in bed with family at bed side who reports that the Morphine ER dosage is 15mg Q12H. She has used 2 doses of Morphine IV in the last 24hrs. No pain at this time. Objective Last 24 Hour Vital Signs Date Time Temp Pulse Resp B/P (MAP) Pulse Ox O2 Delivery O2 Flow Rate FiO2 06/21/18 08:00 97.1 97 20 127/89 (102) 95 06/21/18 08:00 97 06/21/18 04:00 97.5 98 20 131/85 (100) 95 06/21/18 03:42 96 06/21/18 00:00 97.6 95 20 120/85 (97) 95 06/20/18 23:52 94 06/20/18 21:00 Nasal Cannula 2.0 Nasal Cannula 2.0 06/20/18 20:00 97.8 100 20 120/83 (95) 96 06/20/18 19:38 97 06/20/18 19:00 101 20 Nasal Cannula 2.0 28 06/20/18 16:00 96 06/20/18 16:00 97.0 95 18 133/82 (99) 96 06/20/18 12:00 97.2 98 20 135/89 (104) 97 06/20/18 12:00 95 Intake and Output 06/20/18 06/21/18 18:59 06:59 Intake Total 375 ml 250 ml Output Total 1000 ml 1000 ml Balance -625 ml -750 ml Intake Oral 170 ml 250 ml IV Total 205 ml Output Urine Total 1000 ml 1000 ml # Bowel Movements 2 Laboratory Tests 06/21/18 06:55: White Blood Count 12.3H, Red Blood Count 3.91L, Hemoglobin 11.4L, Hematocrit 35.0L, Mean Corpuscular Volume 90, Mean Corpuscular Hemoglobin 29.2, Mean Corpuscular Hemoglobin Concent 32.6, Red Cell Distribution Width 13.8, Platelet Count 937H, Mean Platelet Volume 4.7L, Neutrophils (%) (Auto) , Lymphocytes (%) (Auto) , Monocytes (%) (Auto) , Eosinophils (%) (Auto) , Basophils (%) (Auto) , Neutrophils % (Manual) [Pending], Lymphocytes % (Manual) [Pending], Platelet Estimate [Pending], Platelet Morphology [Pending], Sodium Level 136, Potassium Level 3.7, Chloride Level 98, Carbon Dioxide Level 32, Anion Gap 6, Blood Urea Nitrogen 13, Creatinine 0.5#L, Estimat Glomerular Filtration Rate , Glucose Level 144H, Uric Acid 3.2, Calcium Level 7.9L, Phosphorus Level 3.5, Magnesium Level 1.9, Total Bilirubin 0.5, Aspartate Amino Transf (AST/SGOT) 133H, Alanine Aminotransferase (ALT/SGPT) 90H, Alkaline Phosphatase 1422H, Total Protein 5.1L , Albumin 1.5L, Globulin 3.6, Albumin/Globulin Ratio 0.4L Height (Feet): 5 Height (Inches): 2.00 Weight (Pounds): 130 General Appearance: no apparent distress, alert EENT: PERRL/EOMI, normal ENT inspection Neck: non-tender, normal alignment Cardiovascular: normal rate, regular rhythm Respiratory/Chest: decreased breath sounds Abdomen: non tender, soft Extremities: non-tender Edema: trace edema Neurologic: alert, oriented x 3 Skin: warm/dry Tenzin Foster Jun 21, 2018 09:46
[2018-06-21] MEDS ORDERED: MORPHINE IR15 MG ORAL (09:49)
--- NOTE | 2018-06-21 11:29 | Infectious Diseases Prog Note ---
Assessment/Plan Assessment/Plan A 1. Enterococcal , candidal UTI 2. r/o cholecystitis increased LFT 3. pleural effusion s/p thoracentesis 4. leucocytosis 5. ovarian cancer P 1. Change ceftriaxone to Zosyn , continue fluconazole 2 .will follow up HIDA scan 3. cultures Subjective ROS Limited/Unobtainable: No Constitutional: Reports: no symptoms Respiratory: Reports: shortness of breath Cardiovascular: Reports: no symptoms Gastrointestinal/Abdominal: Reports: no symptoms Genitourinary: Reports: no symptoms Allergies: Coded Allergies: No Known Allergies (Unverified , 06/17/18) Objective Vital Signs Last 24 Hour Vital Signs Date Time Temp Pulse Resp B/P (MAP) Pulse Ox O2 Delivery O2 Flow Rate FiO2 06/21/18 09:00 Nasal Cannula 2.0 Nasal Cannula 2.0 06/21/18 08:00 97.1 97 20 127/89 (102) 95 06/21/18 08:00 97 06/21/18 04:00 97.5 98 20 131/85 (100) 95 06/21/18 03:42 96 06/21/18 00:00 97.6 95 20 120/85 (97) 95 06/20/18 23:52 94 06/20/18 21:00 Nasal Cannula 2.0 Nasal Cannula 2.0 06/20/18 20:00 97.8 100 20 120/83 (95) 96 06/20/18 19:38 97 06/20/18 19:00 101 20 Nasal Cannula 2.0 28 06/20/18 16:00 96 06/20/18 16:00 97.0 95 18 133/82 (99) 96 06/20/18 12:00 97.2 98 20 135/89 (104) 97 06/20/18 12:00 95 Height (Feet): 5 Height (Inches): 2.00 Weight (Pounds): 130 General Appearance: no acute distress HEENT: mucous membranes moist Respiratory/Chest: lungs clear Cardiovascular: normal rate Abdomen: soft, non tender, other - scar of midline surgery Extremities: no edema Neurologic/Psychiatric: alert, responsive Laboratory Tests Test 06/21/18 06:55 White Blood Count 12.3 K/UL (4.8-10.8) H Red Blood Count 3.91 M/UL (4.20-5.40) L Hemoglobin 11.4 G/DL (12.0-16.0) L Hematocrit 35.0 % (37.0-47.0) L Mean Corpuscular Volume 90 FL (80-99) Mean Corpuscular Hemoglobin 29.2 PG (27.0-31.0) Mean Corpuscular Hemoglobin Concent 32.6 G/DL (32.0-36.0) Red Cell Distribution Width 13.8 % (11.6-14.8) Platelet Count 937 K/UL (150-450) H Mean Platelet Volume 4.7 FL (6.5-10.1) L Neutrophils (%) (Auto) % (45.0-75.0) Lymphocytes (%) (Auto) % (20.0-45.0) Monocytes (%) (Auto) % (1.0-10.0) Eosinophils (%) (Auto) % (0.0-3.0) Basophils (%) (Auto) % (0.0-2.0) Differential Total Cells Counted 100 Neutrophils % (Manual) 91 % (45-75) H Lymphocytes % (Manual) 3 % (20-45) L Monocytes % (Manual) 4 % (1-10) Eosinophils % (Manual) 0 % (0-3) Basophils % (Manual) 0 % (0-2) Myelocytes % 1 % (0-0) H Band Neutrophils 1 % (0-8) Platelet Estimate Increased H Platelet Morphology Normal Red Blood Cell Morphology Normal Sodium Level 136 MMOL/L (136-145) Potassium Level 3.7 MMOL/L (3.5-5.1) Chloride Level 98 MMOL/L (98-107) Carbon Dioxide Level 32 MMOL/L (21-32) Anion Gap 6 mmol/L (5-15) Blood Urea Nitrogen 13 mg/dL (7-18) Creatinine 0.5 MG/DL (0.55-1.30) #L Estimat Glomerular Filtration Rate mL/min (>60) Glucose Level 144 MG/DL (74-106) H Uric Acid 3.2 MG/DL (2.6-7.2) Calcium Level 7.9 MG/DL (8.5-10.1) L Phosphorus Level 3.5 MG/DL (2.5-4.9) Magnesium Level 1.9 MG/DL (1.8-2.4) Total Bilirubin 0.5 MG/DL (0.2-1.0) Aspartate Amino Transf (AST/SGOT) 133 U/L (15-37) H Alanine Aminotransferase (ALT/SGPT) 90 U/L (12-78) H Alkaline Phosphatase 1422 U/L (46-116) H Total Protein 5.1 G/DL (6.4-8.2) L Albumin 1.5 G/DL (3.4-5.0) L Globulin 3.6 g/dL Albumin/Globulin Ratio 0.4 (1.0-2.7) L Current Medications Medications (Trade) Dose Ordered Sig/Susana Route PRN Reason Start Time Stop Time Status Last Admin Dose Admin Acetaminophen (Tylenol) 500 mg Q4H PRN ORAL Mild Pain/Temp > 100.5 06/17/18 09:30 07/17/18 09:29 06/17/18 18:21 Albuterol/ Ipratropium (Albuterol/ Ipratropium) 3 ml Q4H PRN HHN Shortness of Breath 06/17/18 09:30 06/22/18 09:29 Bisacodyl (Dulcolax) 10 mg DAILY ORAL 06/20/18 09:00 07/20/18 08:59 06/21/18 08:23 Ceftriaxone Sodium 1 gm/ Dextrose 55 ml @ 110 mls/hr DAILY IVPB 06/20/18 12:00 06/27/18 11:59 06/21/18 08:22 Docusate Sodium (Colace) 100 mg TWICE A DAY ORAL 06/19/18 19:00 07/19/18 18:59 06/21/18 08:23 Fluconazole (Diflucan) 100 mg DAILY ORAL 06/20/18 12:00 06/27/18 11:59 06/21/18 08:23 Furosemide (Lasix) 20 mg Q8HR IV 06/20/18 14:00 07/18/18 08:59 06/21/18 05:39 Heparin Sodium (Porcine) (Heparin 5000 units/ml) 5,000 units EVERY 12 HOURS SUBQ 06/21/18 09:00 07/21/18 08:59 06/21/18 08:25 Magnesium Hydroxide (Mom) 30 ml Q4H PRN ORAL Constipation 06/19/18 18:30 07/19/18 18:29 06/19/18 22:49 Morphine Sulfate (Morphine Sulfate) 2 mg Q4H PRN IVP Moderate pain 06/18/18 16:47 06/25/18 16:46 06/20/18 21:22 Morphine Sulfate (Morphine Sulfate) 4 mg Q4H PRN IVP Severe pain 06/18/18 16:47 06/25/18 16:46 Pantoprazole (Protonix) 40 mg DAILY ORAL 06/18/18 09:00 07/18/18 08:59 06/21/18 08:23 Potassium Chloride (K-Dur) 40 meq TWICE A DAY ORAL 06/20/18 18:00 07/18/18 17:59 06/21/18 08:23 Eugenio Goss MD Jun 21, 2018 11:29
--- NOTE | 2018-06-21 11:30 | NUR ---
NURSE NOTES: Seen by Dr. Jose Goss.
[2018-06-21 11:53] VITALS: BP 115/80
--- NOTE | 2018-06-21 11:56 | NUR ---
NURSE NOTES: Seen by Dr. Stephenson and Kg 5mg po qhs prn is ordered. Will continue plan of care.
--- NOTE | 2018-06-21 12:13 | Nephrology Progress Note ---
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 monitor labs low dose lasix k supplement Subjective ROS Limited/Unobtainable: No Objective Objective Last 24 Hour Vital Signs Date Time Temp Pulse Resp B/P (MAP) Pulse Ox O2 Delivery O2 Flow Rate FiO2 06/21/18 11:53 97.0 94 18 115/80 (92) 97 06/21/18 09:00 Nasal Cannula 2.0 Nasal Cannula 2.0 06/21/18 08:00 97.1 97 20 127/89 (102) 95 06/21/18 08:00 97 06/21/18 04:00 97.5 98 20 131/85 (100) 95 06/21/18 03:42 96 06/21/18 00:00 97.6 95 20 120/85 (97) 95 06/20/18 23:52 94 06/20/18 21:00 Nasal Cannula 2.0 Nasal Cannula 2.0 06/20/18 20:00 97.8 100 20 120/83 (95) 96 06/20/18 19:38 97 06/20/18 19:00 101 20 Nasal Cannula 2.0 28 06/20/18 16:00 96 06/20/18 16:00 97.0 95 18 133/82 (99) 96 Intake and Output 06/20/18 06/21/18 18:59 06:59 Intake Total 375 ml 250 ml Output Total 1000 ml 1000 ml Balance -625 ml -750 ml Intake Oral 170 ml 250 ml IV Total 205 ml Output Urine Total 1000 ml 1000 ml # Bowel Movements 2 Laboratory Tests 06/21/18 06:55: White Blood Count 12.3H, Red Blood Count 3.91L, Hemoglobin 11.4L, Hematocrit 35.0L, Mean Corpuscular Volume 90, Mean Corpuscular Hemoglobin 29.2, Mean Corpuscular Hemoglobin Concent 32.6, Red Cell Distribution Width 13.8, Platelet Count 937H, Mean Platelet Volume 4.7L, Neutrophils (%) (Auto) , Lymphocytes (%) (Auto) , Monocytes (%) (Auto) , Eosinophils (%) (Auto) , Basophils (%) (Auto) , Differential Total Cells Counted 100, Neutrophils % (Manual) 91H, Lymphocytes % (Manual) 3L, Monocytes % (Manual) 4, Eosinophils % (Manual) 0, Basophils % ( Manual) 0, Myelocytes % 1H, Band Neutrophils 1, Platelet Estimate IncreasedH, Platelet Morphology Normal, Red Blood Cell Morphology Normal, Sodium Level 136, Potassium Level 3.7, Chloride Level 98, Carbon Dioxide Level 32, Anion Gap 6, Blood Urea Nitrogen 13, Creatinine 0.5#L, Estimat Glomerular Filtration Rate , Glucose Level 144H, Uric Acid 3.2, Calcium Level 7.9L, Phosphorus Level 3.5, Magnesium Level 1.9, Total Bilirubin 0.5, Aspartate Amino Transf (AST/SGOT) 133H , Alanine Aminotransferase (ALT/SGPT) 90H, Alkaline Phosphatase 1422H, Total Protein 5.1L, Albumin 1.5L, Globulin 3.6, Albumin/Globulin Ratio 0.4L Height (Feet): 5 Height (Inches): 2.00 Weight (Pounds): 130 General Appearance: no apparent distress Cardiovascular: tachycardia Respiratory/Chest: decreased breath sounds Abdomen: distended Jae Walker MD Jun 21, 2018 12:13
[2018-06-21] MEDS: Piperacillin/Tazobactam 3.375 GM in NS 110 ML IVPB SCH ×2 (14:32→21:17)
--- NOTE | 2018-06-21 15:52 | Pulmonology Progress Note ---
Assessment/Plan Assessment/Plan Pulmonary Progress Note Assessment/Plan Problems: (1) Pleural effusion (2) Respiratory distress (3) Ovarian carcinoma Assessment/Plan Problem List: 1. Shortness of breath 2. Large bilateral pleural effusions 3. ovarian cancer s/p resection with likely malignant ascites and presumed malignant effusions 4. Protein calorie malnutrition Plan: -thoracentesis eval with pleural fluid studies today -Monitor volumes, diuresis as able -if not infected will likely have pleurx placement on at least one side when reaccumulates until can start chemo Subjective Allergies: Coded Allergies: No Known Allergies (Unverified , 06/17/18) Subjective AFVSS x ST on 3L sp thora No cough Objective Vital Signs Noted General Appearance: WD/WN, no acute distress HEENT: normocephalic, atraumatic, anicteric, mucous membranes moist Respiratory/Chest: chest wall non-tender, lungs clear - but decreased @ bases, no respiratory distress, no accessory muscle use Cardiovascular: normal peripheral pulses, tachycardia Abdomen: normal bowel sounds, soft, non tender, no organomegaly, non distended Extremities: no cyanosis, no clubbing, other - trace edema Microbiology Date/Time Source Procedure Growth Status 06/17/18 05:36 Urine,Clean Catch Urine Culture - Preliminary Resulted Laboratory Tests 06/18/18 05:33: White Blood Count 14.5H, Red Blood Count 3.70L, Hemoglobin 10.9L, Hematocrit 32.5L, Mean Corpuscular Volume 88, Mean Corpuscular Hemoglobin 29.4, Mean Corpuscular Hemoglobin Concent 33.3, Red Cell Distribution Width 13.8, Platelet Count 863H, Mean Platelet Volume 4.5L, Neutrophils (%) (Auto) , Lymphocytes (%) (Auto) , Monocytes (%) (Auto) , Eosinophils (%) (Auto) , Basophils (%) (Auto) , Differential Total Cells Counted 100, Neutrophils % (Manual) 89H, Lymphocytes % (Manual) 3L, Monocytes % (Manual) 6, Eosinophils % (Manual) 0, Basophils % ( Manual) 0, Metamyelocytes % 1H, Myelocytes % 1H, Band Neutrophils 0, Platelet Estimate IncreasedH, Platelet Morphology Normal, Red Blood Cell Morphology Normal, Sodium Level 133L, Potassium Level 3.7, Chloride Level 97L, Carbon Dioxide Level 28, Anion Gap 8, Blood Urea Nitrogen 16, Creatinine 0.4L, Estimat Glomerular Filtration Rate , Glucose Level 104, Hemoglobin A1c 5.6, Uric Acid 3.4, Calcium Level 7.7L, Phosphorus Level 3.6, Magnesium Level 1.8, Iron Level 17L, Total Iron Binding Capacity 88L, Percent Iron Saturation 19, Unsaturated Iron Binding 71L, Ferritin 739H, Total Bilirubin 0.8, Gamma Glutamyl Transpeptidase 948H, Aspartate Amino Transf (AST/SGOT) 71H, Alanine Aminotransferase (ALT/SGPT) 46, Alkaline Phosphatase 1143H, Lactate Dehydrogenase 151, Total Creatine Kinase 12L, Troponin I 0.000, Pro-B-Type Natriuretic Peptide 171H, Total Protein 5.0L, Albumin 1.3L, Globulin 3.7, Albumin/Globulin Ratio 0.4L, Triglycerides Level 128, Cholesterol Level 187, LDL Cholesterol 134H, HDL Cholesterol 33L, Cholesterol/HDL Ratio 5.7H, Vitamin B12 Level 1114H, Folate 6.8L, Thyroid Stimulating Hormone (TSH) 0.735, Cortisol AM Sample [Pending] Current Medications Medications (Trade) Dose Ordered Sig/Susana Route PRN Reason Start Time Stop Time Status Last Admin Dose Admin Acetaminophen (Tylenol) 500 mg Q4H PRN ORAL Mild Pain/Temp > 100.5 06/17/18 09:30 07/17/18 09:29 06/17/18 18:21 Albuterol/ Ipratropium (Albuterol/ Ipratropium) 3 ml Q4H PRN HHN Shortness of Breath 06/17/18 09:30 06/22/18 09:29 Carvedilol (Coreg) 3.125 mg EVERY 12 HOURS ORAL 06/17/18 21:00 07/17/18 20:59 06/18/18 09:20 Furosemide (Lasix) 20 mg DAILY IV 06/18/18 09:00 07/18/18 08:59 06/18/18 09:20 Iopamidol (Isovue-370 150ml) 150 ml NOW PRN INJ Radiology Procedure 06/17/18 06:45 06/19/18 06:39 Pantoprazole (Protonix) 40 mg DAILY ORAL 06/18/18 09:00 07/18/18 08:59 06/18/18 09:20 Subjective ROS Limited/Unobtainable: No Allergies: Coded Allergies: No Known Allergies (Unverified , 06/17/18) Objective Last 24 Hour Vital Signs Date Time Temp Pulse Resp B/P (MAP) Pulse Ox O2 Delivery O2 Flow Rate FiO2 06/21/18 12:00 97 06/21/18 11:53 97.0 94 18 115/80 (92) 97 06/21/18 09:00 Nasal Cannula 2.0 Nasal Cannula 2.0 06/21/18 08:00 97.1 97 20 127/89 (102) 95 06/21/18 08:00 97 06/21/18 04:00 97.5 98 20 131/85 (100) 95 06/21/18 03:42 96 06/21/18 00:00 97.6 95 20 120/85 (97) 95 06/20/18 23:52 94 06/20/18 21:00 Nasal Cannula 2.0 Nasal Cannula 2.0 06/20/18 20:00 97.8 100 20 120/83 (95) 96 06/20/18 19:38 97 06/20/18 19:00 101 20 Nasal Cannula 2.0 28 06/20/18 16:00 96 06/20/18 16:00 97.0 95 18 133/82 (99) 96 Intake and Output 06/20/18 06/21/18 19:00 07:00 Intake Total 375 ml 250 ml Output Total 1000 ml 1000 ml Balance -625 ml -750 ml Intake Oral 170 ml 250 ml IV Total 205 ml Output Urine Total 1000 ml 1000 ml # Bowel Movements 2 Laboratory Tests 06/21/18 06:55: White Blood Count 12.3H, Red Blood Count 3.91L, Hemoglobin 11.4L, Hematocrit 35.0L, Mean Corpuscular Volume 90, Mean Corpuscular Hemoglobin 29.2, Mean Corpuscular Hemoglobin Concent 32.6, Red Cell Distribution Width 13.8, Platelet Count 937H, Mean Platelet Volume 4.7L, Neutrophils (%) (Auto) , Lymphocytes (%) (Auto) , Monocytes (%) (Auto) , Eosinophils (%) (Auto) , Basophils (%) (Auto) , Differential Total Cells Counted 100, Neutrophils % (Manual) 91H, Lymphocytes % (Manual) 3L, Monocytes % (Manual) 4, Eosinophils % (Manual) 0, Basophils % ( Manual) 0, Myelocytes % 1H, Band Neutrophils 1, Platelet Estimate IncreasedH, Platelet Morphology Normal, Red Blood Cell Morphology Normal, Sodium Level 136, Potassium Level 3.7, Chloride Level 98, Carbon Dioxide Level 32, Anion Gap 6, Blood Urea Nitrogen 13, Creatinine 0.5#L, Estimat Glomerular Filtration Rate , Glucose Level 144H, Uric Acid 3.2, Calcium Level 7.9L, Phosphorus Level 3.5, Magnesium Level 1.9, Total Bilirubin 0.5, Aspartate Amino Transf (AST/SGOT) 133H , Alanine Aminotransferase (ALT/SGPT) 90H, Alkaline Phosphatase 1422H, Total Protein 5.1L, Albumin 1.5L, Globulin 3.6, Albumin/Globulin Ratio 0.4L Current Medications Medications (Trade) Dose Ordered Sig/Susana Route PRN Reason Start Time Stop Time Status Last Admin Dose Admin Acetaminophen (Tylenol) 500 mg Q4H PRN ORAL Mild Pain/Temp > 100.5 06/17/18 09:30 07/17/18 09:29 06/17/18 18:21 Albuterol/ Ipratropium (Albuterol/ Ipratropium) 3 ml Q4H PRN HHN Shortness of Breath 06/17/18 09:30 06/22/18 09:29 Bisacodyl (Dulcolax) 10 mg DAILY ORAL 06/20/18 09:00 07/20/18 08:59 06/21/18 08:23 Docusate Sodium (Colace) 100 mg TWICE A DAY ORAL 06/19/18 19:00 07/19/18 18:59 06/21/18 08:23 Fluconazole (Diflucan) 100 mg DAILY ORAL 06/20/18 12:00 06/27/18 11:59 06/21/18 08:23 Furosemide (Lasix) 20 mg Q8HR IV 06/20/18 14:00 07/18/18 08:59 06/21/18 14:31 Heparin Sodium (Porcine) (Heparin 5000 units/ml) 5,000 units EVERY 12 HOURS SUBQ 06/21/18 09:00 07/21/18 08:59 06/21/18 08:25 Magnesium Hydroxide (Mom) 30 ml Q4H PRN ORAL Constipation 06/19/18 18:30 07/19/18 18:29 06/19/18 22:49 Morphine Sulfate (Morphine Sulfate) 2 mg Q4H PRN IVP Moderate pain 06/18/18 16:47 06/25/18 16:46 06/20/18 21:22 Morphine Sulfate (Morphine Sulfate) 4 mg Q4H PRN IVP Severe pain 06/18/18 16:47 06/25/18 16:46 Pantoprazole (Protonix) 40 mg DAILY ORAL 06/18/18 09:00 07/18/18 08:59 06/21/18 08:23 Piperacillin Sod/ Tazobactam Sod 3.375 gm/Sodium Chloride 110 ml @ 27.5 mls/hr EVERY 8 HOURS IVPB 06/21/18 14:00 06/26/18 13:59 06/21/18 14:32 Potassium Chloride (K-Dur) 40 meq TWICE A DAY ORAL 06/20/18 18:00 07/18/18 17:59 06/21/18 08:23 Zolpidem Tartrate (Ambien) 5 mg HSPRN PRN ORAL Insomnia 06/21/18 12:00 06/28/18 11:59 Faisal Beltre MD Jun 21, 2018 15:52
[2018-06-21 16:00] VITALS: BP 119/81
--- NOTE | 2018-06-21 19:28 | NUR ---
HAND-OFF: Report given to Nancy KIRBY. Patient is in stable condition, call light and belonging in reach, bed is in low postion. no distress/ sob noted.
--- NOTE | 2018-06-21 19:35 | NUR ---
NURSE NOTES: Received patient from [facility]. Patient awake, alert and verbally responsive, family present at bedside. No SOB, no acute distress on2 L via NC. IV site on R AC #18, patent and intact. Bed at lowest position, call light within reach. Will continue plan of care.
[2018-06-21 20:00] VITALS: BP 121/75
[2018-06-21] MEDS: Morphine Sulfate 2mg/ml Inj(IV/IM USE ONLY) IVP PRN (20:23)
--- NOTE | 2018-06-21 21:08 | General Progress Note ---
Assessment/Plan Problem List: (1) Ovarian carcinoma ICD Codes: C56.9 - Malignant neoplasm of unspecified ovary SNOMED: 451184372 Qualifiers: Qualified Codes: C56.9 - Malignant neoplasm of unspecified ovary (2) Respiratory distress ICD Codes: R06.03 - Acute respiratory distress SNOMED: 005934231 (3) Pleural effusion ICD Codes: J90 - Pleural effusion, not elsewhere classified SNOMED: 13098292 (4) Hypoalbuminemia ICD Codes: E88.09 - Other disorders of plasma-protein metabolism, not elsewhere classified SNOMED: 296031762 Status: progressing Assessment/Plan still sob distended abdomen afebrile pleural effusion resp insuff s/p resent ovarian removal and hysterectomy thoracocentesis per pulmonary Subjective Respiratory: Reports: shortness of breath Allergies: Coded Allergies: No Known Allergies (Unverified , 06/17/18) Subjective sob Objective Last 24 Hour Vital Signs Date Time Temp Pulse Resp B/P (MAP) Pulse Ox O2 Delivery O2 Flow Rate FiO2 06/21/18 20:23 94 20 Nasal Cannula 2.0 28 06/21/18 20:00 91 06/21/18 20:00 97.5 94 18 121/75 (90) 96 06/21/18 16:00 97.3 97 20 119/81 (94) 96 06/21/18 16:00 97 06/21/18 12:00 97 06/21/18 11:53 97.0 94 18 115/80 (92) 97 06/21/18 09:00 Nasal Cannula 2.0 Nasal Cannula 2.0 06/21/18 08:00 97.1 97 20 127/89 (102) 95 06/21/18 08:00 97 06/21/18 04:00 97.5 98 20 131/85 (100) 95 06/21/18 03:42 96 06/21/18 00:00 97.6 95 20 120/85 (97) 95 06/20/18 23:52 94 Intake and Output 06/20/18 06/21/18 19:00 07:00 Intake Total 375 ml 250 ml Output Total 1000 ml 1000 ml Balance -625 ml -750 ml Intake Oral 170 ml 250 ml IV Total 205 ml Output Urine Total 1000 ml 1000 ml # Bowel Movements 2 Laboratory Tests 06/21/18 06:55: White Blood Count 12.3H, Red Blood Count 3.91L, Hemoglobin 11.4L, Hematocrit 35.0L, Mean Corpuscular Volume 90, Mean Corpuscular Hemoglobin 29.2, Mean Corpuscular Hemoglobin Concent 32.6, Red Cell Distribution Width 13.8, Platelet Count 937H, Mean Platelet Volume 4.7L, Neutrophils (%) (Auto) , Lymphocytes (%) (Auto) , Monocytes (%) (Auto) , Eosinophils (%) (Auto) , Basophils (%) (Auto) , Differential Total Cells Counted 100, Neutrophils % (Manual) 91H, Lymphocytes % (Manual) 3L, Monocytes % (Manual) 4, Eosinophils % (Manual) 0, Basophils % ( Manual) 0, Myelocytes % 1H, Band Neutrophils 1, Platelet Estimate IncreasedH, Platelet Morphology Normal, Red Blood Cell Morphology Normal, Sodium Level 136, Potassium Level 3.7, Chloride Level 98, Carbon Dioxide Level 32, Anion Gap 6, Blood Urea Nitrogen 13, Creatinine 0.5#L, Estimat Glomerular Filtration Rate , Glucose Level 144H, Uric Acid 3.2, Calcium Level 7.9L, Phosphorus Level 3.5, Magnesium Level 1.9, Total Bilirubin 0.5, Aspartate Amino Transf (AST/SGOT) 133H , Alanine Aminotransferase (ALT/SGPT) 90H, Alkaline Phosphatase 1422H, Total Protein 5.1L, Albumin 1.5L, Globulin 3.6, Albumin/Globulin Ratio 0.4L Height (Feet): 5 Height (Inches): 2.00 Weight (Pounds): 130 Cardiovascular: normal rate Respiratory/Chest: rhonchi - bilaterally Vane Stephenson MD Jun 21, 2018 21:08
[2018-06-21] MEDS: Zolpidem 5mg tab ORAL PRN (21:16)
--- NOTE | 2018-06-21 21:50 | NUR ---
HAND-OFF: Report given to KOFI Barr. Patient asleep now, breathing veen and unlabored, all meds due given. Fall precautions in place. Endorsed plan of care.
--- NOTE | 2018-06-21 21:51 | NUR ---
NURSE NOTES: Received report from Nancy KIRBY. patient in bed sleeping in bed, no s/s of acute distress noted. on 2L oxygen via N/C. No moaning no facila grimaces. [place] draining. Call light within easy reach. Bed alarm on. Bed locked and in low position. Will continue plan of care.
--- NOTE | 2018-06-21 23:06 | Cardiology Progress Note ---
Assessment/Plan Assessment/Plan 1. Sinus tachycardia, resolved likely due to intravascular volume depletion due to low oncotic pressure, consider albumin administration. Other etiologies include sepsis and increased tumor burden. 2. B/L pleural effusion, s/p thoracentesis 3. Metastatic ovarian cancer 4. FTT 5. Respiratory failure. 6. Encephalopathy 7. Moderate pulmonary HTN. Subjective Subjective Sinus rhythm at rate of 94. Objective Last 24 Hour Vital Signs Date Time Temp Pulse Resp B/P (MAP) Pulse Ox O2 Delivery O2 Flow Rate FiO2 06/21/18 21:00 Nasal Cannula 2.0 Nasal Cannula 2.0 06/21/18 20:23 94 20 Nasal Cannula 2.0 28 06/21/18 20:00 91 06/21/18 20:00 97.5 94 18 121/75 (90) 96 06/21/18 16:00 97.3 97 20 119/81 (94) 96 06/21/18 16:00 97 06/21/18 12:00 97 06/21/18 11:53 97.0 94 18 115/80 (92) 97 06/21/18 09:00 Nasal Cannula 2.0 Nasal Cannula 2.0 06/21/18 08:00 97.1 97 20 127/89 (102) 95 06/21/18 08:00 97 06/21/18 04:00 97.5 98 20 131/85 (100) 95 06/21/18 03:42 96 06/21/18 00:00 97.6 95 20 120/85 (97) 95 06/20/18 23:52 94 Intake and Output 06/20/18 06/21/18 19:00 07:00 Intake Total 375 ml 250 ml Output Total 1000 ml 1000 ml Balance -625 ml -750 ml Intake Oral 170 ml 250 ml IV Total 205 ml Output Urine Total 1000 ml 1000 ml # Bowel Movements 2 2D Echo: LVEF 65%, Grade I LVDD, pleural effusion, RVSP 48 mmHg Laboratory Tests Test 06/21/18 06:55 White Blood Count 12.3 K/UL (4.8-10.8) H Red Blood Count 3.91 M/UL (4.20-5.40) L Hemoglobin 11.4 G/DL (12.0-16.0) L Hematocrit 35.0 % (37.0-47.0) L Mean Corpuscular Volume 90 FL (80-99) Mean Corpuscular Hemoglobin 29.2 PG (27.0-31.0) Mean Corpuscular Hemoglobin Concent 32.6 G/DL (32.0-36.0) Red Cell Distribution Width 13.8 % (11.6-14.8) Platelet Count 937 K/UL (150-450) H Mean Platelet Volume 4.7 FL (6.5-10.1) L Neutrophils (%) (Auto) % (45.0-75.0) Lymphocytes (%) (Auto) % (20.0-45.0) Monocytes (%) (Auto) % (1.0-10.0) Eosinophils (%) (Auto) % (0.0-3.0) Basophils (%) (Auto) % (0.0-2.0) Differential Total Cells Counted 100 Neutrophils % (Manual) 91 % (45-75) H Lymphocytes % (Manual) 3 % (20-45) L Monocytes % (Manual) 4 % (1-10) Eosinophils % (Manual) 0 % (0-3) Basophils % (Manual) 0 % (0-2) Myelocytes % 1 % (0-0) H Band Neutrophils 1 % (0-8) Platelet Estimate Increased H Platelet Morphology Normal Red Blood Cell Morphology Normal Sodium Level 136 MMOL/L (136-145) Potassium Level 3.7 MMOL/L (3.5-5.1) Chloride Level 98 MMOL/L (98-107) Carbon Dioxide Level 32 MMOL/L (21-32) Anion Gap 6 mmol/L (5-15) Blood Urea Nitrogen 13 mg/dL (7-18) Creatinine 0.5 MG/DL (0.55-1.30) #L Estimat Glomerular Filtration Rate mL/min (>60) Glucose Level 144 MG/DL (74-106) H Uric Acid 3.2 MG/DL (2.6-7.2) Calcium Level 7.9 MG/DL (8.5-10.1) L Phosphorus Level 3.5 MG/DL (2.5-4.9) Magnesium Level 1.9 MG/DL (1.8-2.4) Total Bilirubin 0.5 MG/DL (0.2-1.0) Aspartate Amino Transf (AST/SGOT) 133 U/L (15-37) H Alanine Aminotransferase (ALT/SGPT) 90 U/L (12-78) H Alkaline Phosphatase 1422 U/L (46-116) H Total Protein 5.1 G/DL (6.4-8.2) L Albumin 1.5 G/DL (3.4-5.0) L Globulin 3.6 g/dL Albumin/Globulin Ratio 0.4 (1.0-2.7) L Objective HEENT: Atraumatic and normocephalic. Anicteric. Pupils are equal, round, and reactive to light and accommodation. Extraocular muscles intact. NECK: JVP less than 5 cm. No carotid bruit. Carotid upstrokes 2+ bilaterally. CARDIOVASCULAR: Normal S1, S2. Regular rate and rhythm. Tachycardic. No murmurs, gallops, or rubs. LUNGS: Diminished breath sounds in both bases. ABDOMEN: Soft, nontender, and nondistended. No hepatosplenomegaly. Positive bowel sounds. An abdominal incision site is clean. EXTREMITIES: No evidence of edema, clubbing, or cyanosis. Andrew Man MD Jun 21, 2018 23:06
[2018-06-22] VITALS (7 sets, daily range): BP systolic 114–149; BP diastolic 66–103
[2018-06-22] MEDS: Piperacillin/Tazobactam 3.375 GM in NS 110 ML IVPB SCH ×3 (05:17→20:41)
--- NOTE | 2018-06-22 07:30 | NUR ---
HAND-OFF: Report given to KOFI Mccloud.
--- NOTE | 2018-06-22 07:31 | NUR ---
NURSE NOTES: Received report from KOFI Brown. Patient is sitting in bed, eating her breakfast. No signs and symptoms of acute distress at this time. IV site , patent and intact. Bed at lowest position, with two side rails up. call light and bed side table within reach. Will continue to monitor and follow plan of care.
[2018-06-22] MEDS: Bisacodyl EC 5mg tab ORAL SCH (09:15)
[2018-06-22] MEDS: Fluconazole 100mg tab ORAL SCH (09:15)
[2018-06-22] MEDS: Docusate 100mg cap ORAL SCH ×2 (09:15→17:45)
[2018-06-22] MEDS: Heparin 5000 units/ml inj SUBQ SCH ×2 (09:16→20:53)
--- NOTE | 2018-06-22 11:17 | Infectious Diseases Prog Note ---
Assessment/Plan Assessment/Plan A 1. Enterococcal , candidal UTI 2. r/o cholecystitis increased LFT 3. pleural effusion s/p thoracentesis 4. leucocytosis 5. ovarian cancer P 1.Continue Zosyn & fluconazole 2 .will follow up HIDA scan Subjective ROS Limited/Unobtainable: Yes Constitutional: Reports: no symptoms Allergies: Coded Allergies: No Known Allergies (Unverified , 06/17/18) Objective Vital Signs Last 24 Hour Vital Signs Date Time Temp Pulse Resp B/P (MAP) Pulse Ox O2 Delivery O2 Flow Rate FiO2 06/22/18 09:00 Nasal Cannula 2.0 Nasal Cannula 2.0 06/22/18 08:00 97.0 102 24 121/84 (96) 98 06/22/18 08:00 78 06/22/18 07:46 96 16 Nasal Cannula 2.0 28 06/22/18 04:00 98.0 81 18 114/66 (82) 97 06/22/18 04:00 80 06/22/18 00:00 97.7 89 18 132/74 (93) 97 06/21/18 21:00 Nasal Cannula 2.0 Nasal Cannula 2.0 06/21/18 20:23 94 20 Nasal Cannula 2.0 28 06/21/18 20:00 91 06/21/18 20:00 97.5 94 18 121/75 (90) 96 06/21/18 16:00 97.3 97 20 119/81 (94) 96 06/21/18 16:00 97 06/21/18 12:00 97 06/21/18 11:53 97.0 94 18 115/80 (92) 97 Height (Feet): 5 Height (Inches): 2.00 Weight (Pounds): 130 General Appearance: no acute distress HEENT: mucous membranes moist Respiratory/Chest: lungs clear Cardiovascular: normal rate Abdomen: soft, non tender Extremities: no edema Neurologic/Psychiatric: alert, responsive Current Medications Medications (Trade) Dose Ordered Sig/Susana Route PRN Reason Start Time Stop Time Status Last Admin Dose Admin Acetaminophen (Tylenol) 500 mg Q4H PRN ORAL Mild Pain/Temp > 100.5 06/17/18 09:30 07/17/18 09:29 06/17/18 18:21 Bisacodyl (Dulcolax) 10 mg DAILY ORAL 06/20/18 09:00 07/20/18 08:59 06/22/18 09:15 Docusate Sodium (Colace) 100 mg TWICE A DAY ORAL 06/19/18 19:00 07/19/18 18:59 06/22/18 09:15 Fluconazole (Diflucan) 100 mg DAILY ORAL 06/20/18 12:00 06/27/18 11:59 06/22/18 09:15 Furosemide (Lasix) 20 mg Q8HR IV 06/20/18 14:00 07/18/18 08:59 06/22/18 05:17 Heparin Sodium (Porcine) (Heparin 5000 units/ml) 5,000 units EVERY 12 HOURS SUBQ 06/21/18 09:00 07/21/18 08:59 06/22/18 09:16 Magnesium Hydroxide (Mom) 30 ml Q4H PRN ORAL Constipation 06/19/18 18:30 07/19/18 18:29 06/19/18 22:49 Morphine Sulfate (Morphine Sulfate) 2 mg Q4H PRN IVP Moderate pain 06/18/18 16:47 06/25/18 16:46 06/21/18 20:23 Morphine Sulfate (Morphine Sulfate) 4 mg Q4H PRN IVP Severe pain 06/18/18 16:47 06/25/18 16:46 Pantoprazole (Protonix) 40 mg DAILY ORAL 06/18/18 09:00 07/18/18 08:59 06/22/18 09:14 Piperacillin Sod/ Tazobactam Sod 3.375 gm/Sodium Chloride 110 ml @ 27.5 mls/hr EVERY 8 HOURS IVPB 06/21/18 14:00 06/26/18 13:59 06/22/18 05:17 Potassium Chloride (K-Dur) 40 meq TWICE A DAY ORAL 06/20/18 18:00 07/18/18 17:59 06/22/18 09:15 Zolpidem Tartrate (Ambien) 5 mg HSPRN PRN ORAL Insomnia 06/21/18 12:00 06/28/18 11:59 06/21/18 21:16 Eugenio Goss MD Jun 22, 2018 11:16
[2018-06-22] MEDS: Morphine Sulfate 4mg/ml Inj (IV USE ONLY) IVP PRN ×2 (13:07→20:28)
--- NOTE | 2018-06-22 13:31 | Nephrology Progress Note ---
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 monitor labs low dose lasix k supplement Subjective ROS Limited/Unobtainable: No Constitutional: Reports: malaise, weakness Objective Objective Last 24 Hour Vital Signs Date Time Temp Pulse Resp B/P (MAP) Pulse Ox O2 Delivery O2 Flow Rate FiO2 06/22/18 12:00 97.7 113 25 149/103 (118) 92 06/22/18 09:00 Nasal Cannula 2.0 Nasal Cannula 2.0 06/22/18 08:01 100 06/22/18 08:00 97.0 102 24 121/84 (96) 98 06/22/18 07:46 96 16 Nasal Cannula 2.0 28 06/22/18 04:00 98.0 81 18 114/66 (82) 97 06/22/18 04:00 80 06/22/18 00:00 97.7 89 18 132/74 (93) 97 06/21/18 21:00 Nasal Cannula 2.0 Nasal Cannula 2.0 06/21/18 20:23 94 20 Nasal Cannula 2.0 28 06/21/18 20:00 91 06/21/18 20:00 97.5 94 18 121/75 (90) 96 06/21/18 16:00 97.3 97 20 119/81 (94) 96 06/21/18 16:00 97 Intake and Output 06/21/18 06/22/18 18:59 06:59 Intake Total 405.0 ml 230.0 ml Output Total 1500 ml 1000 ml Balance -1095.0 ml -770.0 ml Intake Oral 240 ml 120 ml IV Total 165.0 ml 110.0 ml Output Urine Total 1500 ml 1000 ml # Bowel Movements 1 Height (Feet): 5 Height (Inches): 2.00 Weight (Pounds): 130 General Appearance: no apparent distress Cardiovascular: tachycardia Respiratory/Chest: decreased breath sounds Abdomen: distended Jae Walker MD Jun 22, 2018 13:31
--- NOTE | 2018-06-22 13:44 | NUR ---
HIDA Scan complete.
--- NOTE | 2018-06-22 16:01 | NUR ---
[employer] SI: RESP DISTRESS, S/P THORACENTESIS T. 97.0 HR 102 RR 24 B/P 121/84 2L NC IS: ZOSYN IV LASIX IV DIFLUCAN PO PROTONIX PO TELE STATUS
--- NOTE | 2018-06-22 16:33 | Diagnostic Imaging Report ---
Indications: Abnormal liver function tests, abnormal recent ultrasound, abdominal pain Technique: IV administration 5.5 mCi 99 M technetium Choletec. Serial images obtained over the abdomen for 2 hrs. 4 mg of morphine given 60 minutes postinjection Comparison: Reference made to abdominal ultrasound dated 06/17/2018 Findings: Prompt tracer uptake within the liver. Extrahepatic bile ducts are seen at 30 minutes. Excretion into the duodenum demonstrated at 22 minutes. Gallbladder is never visualized, even after morphine administration. After morphine administration, there is evidence of tracer reflux into the stomach. Impression: Nonvisualization of the gallbladder, suspicious for acute cholecystitis Patient's nurse notified at the time of interpretation
--- NOTE | 2018-06-22 18:11 | General Progress Note ---
Assessment/Plan Assessment/Plan (1) Intractable pain (2) Ovarian cancer Patient to be continued on Morphine. Dr. Breaux and he concurred. Subjective Date patient seen: Jun 22, 2018 Time patient seen: 05:30 - pm Constitutional: Reports: weakness HEENT: Reports: no symptoms Cardiovascular: Reports: no symptoms Respiratory: Reports: no symptoms Gastrointestinal/Abdominal: Reports: abdominal pain Genitourinary: Reports: no symptoms Neurologic/Psychiatric: Reports: weakness Endocrine: Reports: no symptoms Hematologic/Lymphatic: Reports: no symptoms Allergies: Coded Allergies: No Known Allergies (Unverified , 06/17/18) Subjective Patient is in bed with family at bed side. Patient has pain which is at a moderate level and tolerated on the Morphine. Objective Last 24 Hour Vital Signs Date Time Temp Pulse Resp B/P (MAP) Pulse Ox O2 Delivery O2 Flow Rate FiO2 06/22/18 16:00 98 06/22/18 16:00 97.8 109 22 129/87 (101) 94 06/22/18 13:30 98.2 97 18 129/89 (102) 96 06/22/18 09:00 Nasal Cannula 2.0 Nasal Cannula 2.0 06/22/18 08:01 100 06/22/18 08:00 97.0 102 24 121/84 (96) 98 06/22/18 07:46 96 16 Nasal Cannula 2.0 28 06/22/18 04:00 98.0 81 18 114/66 (82) 97 06/22/18 04:00 80 06/22/18 00:00 97.7 89 18 132/74 (93) 97 06/21/18 21:00 Nasal Cannula 2.0 Nasal Cannula 2.0 06/21/18 20:23 94 20 Nasal Cannula 2.0 28 06/21/18 20:00 91 06/21/18 20:00 97.5 94 18 121/75 (90) 96 Intake and Output 06/21/18 06/22/18 19:00 07:00 Intake Total 405.0 ml 230.0 ml Output Total 1500 ml 1000 ml Balance -1095.0 ml -770.0 ml Intake Oral 240 ml 120 ml IV Total 165.0 ml 110.0 ml Output Urine Total 1500 ml 1000 ml # Bowel Movements 1 Height (Feet): 5 Height (Inches): 2.00 Weight (Pounds): 130 General Appearance: no apparent distress, alert EENT: PERRL/EOMI Neck: normal alignment, supple Cardiovascular: normal rate, regular rhythm Respiratory/Chest: decreased breath sounds Abdomen: tender Extremities: non-tender Edema: trace edema Neurologic: alert, oriented x 3 Skin: normal pigmentation Tenzin Foster Jun 22, 2018 18:11
--- NOTE | 2018-06-22 19:29 | NUR ---
HAND-OFF: Report given to KOFI Pagan.
--- NOTE | 2018-06-22 19:30 | NUR ---
NURSE NOTES: Received pt from KOFI Steve. Pt awake, alert, and talkative (persian speaking). Daughter at bedside. Bed in lowest position. Call light within reach. Will continue to monitor.
[2018-06-22] MEDS: Zolpidem 5mg tab ORAL PRN (20:51)
--- NOTE | 2018-06-22 21:22 | General Progress Note ---
Assessment/Plan Problem List: (1) Ovarian carcinoma ICD Codes: C56.9 - Malignant neoplasm of unspecified ovary SNOMED: 478587156 Qualifiers: Qualified Codes: C56.9 - Malignant neoplasm of unspecified ovary (2) Respiratory distress ICD Codes: R06.03 - Acute respiratory distress SNOMED: 493794276 (3) Pleural effusion ICD Codes: J90 - Pleural effusion, not elsewhere classified SNOMED: 61651054 (4) Hypoalbuminemia ICD Codes: E88.09 - Other disorders of plasma-protein metabolism, not elsewhere classified SNOMED: 764441299 Status: progressing Assessment/Plan abdominal pain pleural effusion resp insuff not hypoxic s/p resent ovarian removal and hysterectomy Subjective ROS Limited/Unobtainable: Yes Allergies: Coded Allergies: No Known Allergies (Unverified , 06/17/18) Subjective sob Objective Last 24 Hour Vital Signs Date Time Temp Pulse Resp B/P (MAP) Pulse Ox O2 Delivery O2 Flow Rate FiO2 06/22/18 21:00 Nasal Cannula 2.0 Nasal Cannula 2.0 06/22/18 20:12 95 Nasal Cannula 1.0 24 06/22/18 20:12 Nasal Cannula 1.0 24 06/22/18 20:11 100 18 Nasal Cannula 1.0 24 06/22/18 16:00 98 06/22/18 16:00 97.8 109 22 129/87 (101) 94 06/22/18 13:30 98.2 97 18 129/89 (102) 96 06/22/18 09:00 Nasal Cannula 2.0 Nasal Cannula 2.0 06/22/18 08:01 100 06/22/18 08:00 97.0 102 24 121/84 (96) 98 06/22/18 07:46 96 16 Nasal Cannula 2.0 28 06/22/18 04:00 98.0 81 18 114/66 (82) 97 06/22/18 04:00 80 06/22/18 00:00 97.7 89 18 132/74 (93) 97 Intake and Output 06/21/18 06/22/18 19:00 07:00 Intake Total 405.0 ml 230.0 ml Output Total 1500 ml 1000 ml Balance -1095.0 ml -770.0 ml Intake Oral 240 ml 120 ml IV Total 165.0 ml 110.0 ml Output Urine Total 1500 ml 1000 ml # Bowel Movements 1 Height (Feet): 5 Height (Inches): 2.00 Weight (Pounds): 130 Neck: supple Cardiovascular: normal rate Respiratory/Chest: lungs clear Abdomen: soft Vane Stephenson MD Jun 22, 2018 21:22
--- NOTE | 2018-06-22 22:31 | General Progress Note ---
Assessment/Plan Assessment/Plan Assessment/Recommendations # Thrombocytosis - likely related to reactive process, ovarian cancer potential hx of mets --> Continue to monitor for improvement --> plt trend: 860-->863-->917-->937 --> Trend CBC as needed --> Jak2 has been ordered --> Smear reviewed and no abnormalities noted. *Under manual differential # ovarian cancer s/p resection with likely malignant ascites and presumed malignant effusions --> review outside imaging and treatments patient has received --> outside labs and pathology to be reviewed --> defer to outpatient oncologist for further care, patient requires followup, has followup with [facility] # Anemia of chronic disease (or of iron deficiency) due to underlying chronic medical issues, multifactorial --> Anemia workup has been reviewed, --> No evidence of hemolysis is noted, peripheral smear has been reviewed. --> Hgb goal >7. Transfuse prn. --> Epogen or iron at this time is not particularly indicated --> Medications have been reviewed # Leukocytosis. Likely related to underlying infection versus reactive process. --> Peripheral has been ordered, no blasts are noted --> Medications have been reviewed --> Imaging has been reviewed --> Blood cultures and urine cultures prn --> has been started on abx, empiric treatment # Shortness of breath # Large bilateral pleural effusions --> thoracentesis eval with pleural fluid studies --> 06/18: Successful ultrasound-guided right thoracentesis, yielding 0.8 liters of fluid The timing of this note does not necessarily reflect the time of the patient was seen. Greatly appreciate consultation! Subjective Constitutional: Denies: no symptoms, chills, diaphoresis, fever, malaise, weakness, other HEENT: Denies: no symptoms, eye pain, blurred vision, tearing, double vision, ear pain, ear discharge, nose pain, nose congestion, throat pain, throat swelling, mouth pain, mouth swelling, other Cardiovascular: Denies: no symptoms, chest pain, edema, irregular heart rate, lightheadedness, palpitations, syncope, other Genitourinary: Denies: no symptoms, burning, discharge, frequency, flank pain, hematuria, incontinence, pain, urgency, other Neurologic/Psychiatric: Denies: no symptoms, anxiety, depressed, emotional problems, headache, numbness, paresthesia, pre-existing deficit, seizure, tingling, tremors, weakness, other Endocrine: Denies: no symptoms, excessive sweating, flushing, intolerance to cold, intolerance to heat, increased hunger, increased thirst, increased urine, unexplained weight gain, unexplained weight loss, other Hematologic/Lymphatic: Denies: no symptoms, anemia, easy bleeding, easy bruising, other Allergies: Coded Allergies: No Known Allergies (Unverified , 06/17/18) Subjective 06/18: thoracentesis eval with pleural fluid studies today, plt remains elevated. 06/19: seen by bedside, no acute distress, no signs of pain. No pneumothorax is reported on CXR 06/22: Patient is is resting in bed with family at bed side. Patient has pain which is at a moderate level and tolerated on the Morphine. HIDA scan reveals, suspicious for acute cholecystitis. plt continue to be elevated and trending up. Objective Last 24 Hour Vital Signs Date Time Temp Pulse Resp B/P (MAP) Pulse Ox O2 Delivery O2 Flow Rate FiO2 06/22/18 21:00 Nasal Cannula 2.0 Nasal Cannula 2.0 06/22/18 20:12 95 Nasal Cannula 1.0 24 06/22/18 20:12 Nasal Cannula 1.0 24 06/22/18 20:11 100 18 Nasal Cannula 1.0 24 06/22/18 16:00 98 06/22/18 16:00 97.8 109 22 129/87 (101) 94 06/22/18 13:30 98.2 97 18 129/89 (102) 96 06/22/18 09:00 Nasal Cannula 2.0 Nasal Cannula 2.0 06/22/18 08:01 100 06/22/18 08:00 97.0 102 24 121/84 (96) 98 06/22/18 07:46 96 16 Nasal Cannula 2.0 28 06/22/18 04:00 98.0 81 18 114/66 (82) 97 06/22/18 04:00 80 06/22/18 00:00 97.7 89 18 132/74 (93) 97 Intake and Output 06/21/18 06/22/18 19:00 07:00 Intake Total 405.0 ml 230.0 ml Output Total 1500 ml 1000 ml Balance -1095.0 ml -770.0 ml Intake Oral 240 ml 120 ml IV Total 165.0 ml 110.0 ml Output Urine Total 1500 ml 1000 ml # Bowel Movements 1 Height (Feet): 5 Height (Inches): 2.00 Weight (Pounds): 130 Objective Physical Exam General Appearance: no apparent distress, alert HEENT: normocephalic, atraumatic Neck: supple Respiratory/Chest: decreased breath sounds Cardiovascular/Chest: normal rate, regular rhythm Abdomen: non tender, soft Extremities: no edema Keegan Flores MD Jun 22, 2018 22:31
--- NOTE | 2018-06-22 23:24 | Cardiology Progress Note ---
Assessment/Plan Assessment/Plan 1. Sinus tachycardia, resolved likely due to intravascular volume depletion due to low oncotic pressure, consider albumin administration. Other etiologies include sepsis and increased tumor burden. 2. B/L pleural effusion, s/p thoracentesis 3. Metastatic ovarian cancer 4. FTT 5. Respiratory failure. 6. Encephalopathy 7. Moderate pulmonary HTN. Subjective Subjective Sinus rhythm at rate of 94. Objective Last 24 Hour Vital Signs Date Time Temp Pulse Resp B/P (MAP) Pulse Ox O2 Delivery O2 Flow Rate FiO2 06/22/18 21:00 Nasal Cannula 2.0 Nasal Cannula 2.0 06/22/18 20:12 95 Nasal Cannula 1.0 24 06/22/18 20:12 Nasal Cannula 1.0 24 06/22/18 20:11 100 18 Nasal Cannula 1.0 24 06/22/18 16:00 98 06/22/18 16:00 97.8 109 22 129/87 (101) 94 06/22/18 13:30 98.2 97 18 129/89 (102) 96 06/22/18 09:00 Nasal Cannula 2.0 Nasal Cannula 2.0 06/22/18 08:01 100 06/22/18 08:00 97.0 102 24 121/84 (96) 98 06/22/18 07:46 96 16 Nasal Cannula 2.0 28 06/22/18 04:00 98.0 81 18 114/66 (82) 97 06/22/18 04:00 80 06/22/18 00:00 97.7 89 18 132/74 (93) 97 Intake and Output 06/21/18 06/22/18 19:00 07:00 Intake Total 405.0 ml 230.0 ml Output Total 1500 ml 1000 ml Balance -1095.0 ml -770.0 ml Intake Oral 240 ml 120 ml IV Total 165.0 ml 110.0 ml Output Urine Total 1500 ml 1000 ml # Bowel Movements 1 2D Echo: LVEF 65%, Grade I LVDD, pleural effusion, RVSP 48 mmHg Objective HEENT: Atraumatic and normocephalic. Anicteric. Pupils are equal, round, and reactive to light and accommodation. Extraocular muscles intact. NECK: JVP less than 5 cm. No carotid bruit. Carotid upstrokes 2+ bilaterally. CARDIOVASCULAR: Normal S1, S2. Regular rate and rhythm. No murmurs, gallops, or rubs. LUNGS: Diminished breath sounds in both bases. ABDOMEN: Soft, nontender, and nondistended. No hepatosplenomegaly. Positive bowel sounds. An abdominal incision site is clean. EXTREMITIES: No evidence of edema, clubbing, or cyanosis. Andrew Man MD Jun 22, 2018 23:24
[2018-06-23] VITALS (7 sets, daily range): BP systolic 123–129; BP diastolic 83–88
[2018-06-23] MEDS: Piperacillin/Tazobactam 3.375 GM in NS 110 ML IVPB SCH ×3 (07:03→21:21)
--- NOTE | 2018-06-23 07:31 | NUR ---
HAND-OFF: Report given to KOFI Whitehead. Pt stable.
--- NOTE | 2018-06-23 07:48 | NUR ---
NURSE NOTES: Received report from KOFI Pagan. Patient is in stable condition. No acute distress/SOB noted. Patient denies any pain/discomfort. Will continue plan of care.
[2018-06-23] MEDS: Bisacodyl EC 5mg tab ORAL SCH (08:38)
[2018-06-23] MEDS: Docusate 100mg cap ORAL SCH ×2 (08:39→18:21)
[2018-06-23] MEDS: Fluconazole 100mg tab ORAL SCH (08:39)
[2018-06-23] MEDS: Heparin 5000 units/ml inj SUBQ SCH ×2 (08:40→20:50)
--- NOTE | 2018-06-23 09:36 | Cardiology Report ---
APPROVED REPORT EXAM: Two-dimensional and M-mode echocardiogram with Doppler and color Doppler. INDICATION Congestive Heart Failure M-Mode DIMENSIONS IVSd1.3 (0.7-1.1cm)Left Atrium (MM)3.4 (1.6-4.0cm) LVDd3.1 (3.5-5.6cm)Aortic Root3.6 (2.0-3.7cm) PWd1.1 (0.7-1.1cm)Aortic Cusp Exc.1.9 (1.5-2.0cm) IVSs1.3 cm LVDs1.8 (2.5-4.0cm) PWs1.4 cm Normal left ventricular chamber size, systolic function and wall motion . Left ventricular ejection fraction estimated to be60-65%. No evidence of left ventricular hypertrophy. No evidence of pericardial effusion. Pleural effusion present . All other cardiac chamber sizes are within normal limits. Aortic valve sclerosis with adequate cusp excursion. Thickened mitral valve leaflets with normal excursion. Mitral annulus and aortic root calcification. Pulmonic valve not well visualized. IVC in normal size with physiologic collapse . A color flow and spectral Doppler study was performed and revealed: No aortic regurgitation. Mitral diastolic velocities suggest reduced left ventricular relaxation c/w mild LV diastolic dysfunction (Grade I ) Trace mitral regurgitation. Mild tricuspid regurgitation. Tricuspid systolic velocities suggests peak right ventricular systolic pressure of 48 mmHg,consistent with moderate pulmonary hypertension .
--- NOTE | 2018-06-23 10:57 | Nephrology Progress Note ---
Assessment/Plan Problem List: (1) Pleural effusion (2) Respiratory distress (3) Ovarian carcinoma (4) Hyponatremia (5) Hypoalbuminemia Assessment HypoNatremia due to Edematous state HypoAlbuminemia and proteinuria Respiratory distress Pleural effusion likely malignant ascitis Ovarian carcinoma Plan labs in am landeros thoracentesis 24 h urine protein coreg stopped by Dr Man ! monitor labs low dose lasix k supplement Subjective ROS Limited/Unobtainable: No Constitutional: Reports: malaise Objective Objective Last 24 Hour Vital Signs Date Time Temp Pulse Resp B/P (MAP) Pulse Ox O2 Delivery O2 Flow Rate FiO2 06/23/18 09:00 Nasal Cannula 2.0 Nasal Cannula 2.0 06/23/18 08:00 97.8 112 18 123/85 (98) 95 06/23/18 08:00 108 06/23/18 04:00 102 06/23/18 04:00 97.5 103 17 123/85 (98) 93 06/23/18 00:00 97.2 100 19 126/85 (99) 94 06/23/18 00:00 101 06/22/18 21:00 Nasal Cannula 2.0 Nasal Cannula 2.0 06/22/18 20:12 95 Nasal Cannula 1.0 24 06/22/18 20:12 Nasal Cannula 1.0 24 06/22/18 20:11 100 18 Nasal Cannula 1.0 24 06/22/18 20:00 96.9 103 19 123/88 (100) 94 06/22/18 16:00 98 06/22/18 16:00 97.8 109 22 129/87 (101) 94 06/22/18 13:30 98.2 97 18 129/89 (102) 96 Intake and Output 06/22/18 06/23/18 18:59 06:59 Intake Total 27.5 ml Output Total 800 ml 1000 ml Balance -772.5 ml -1000 ml IV Total 27.5 ml Output Urine Total 800 ml 1000 ml # Voids 1 Height (Feet): 5 Height (Inches): 2.00 Weight (Pounds): 130 General Appearance: no apparent distress Respiratory/Chest: decreased breath sounds Abdomen: distended Jae Walker MD Jun 23, 2018 10:56
--- NOTE | 2018-06-23 11:00 | NUR ---
NURSE NOTES: Patient transferred to unit via hospital bed. Stable with no s/s acute distress. Patient denies pain at this time. Breathing is even and unlabored. Patient is occitan speaking and able to verbalize simple needs. Patient's previous surgical scar noted on abdomen, clean, dry, and intact. Patient is oriented to room, call light, unit, and nurses. All safety measures provided. Patient is comfortable in bed in locked position with call light within reach. Will continue to monitor.
--- NOTE | 2018-06-23 11:00 | NUR ---
TRANSFER TO FLOOR: Patient transferred to 3E/301-1 with hospital bed. Report given to KOFI Seth. Inventory check done. Family/daughtger is informed of transfer.
--- NOTE | 2018-06-23 11:10 | Pulmonology Progress Note ---
Assessment/Plan Assessment/Plan Problem List: 1. Shortness of breath 2. Large bilateral pleural effusions -R thoracentesis 800 cc 06/18 3. ovarian cancer s/p resection with likely malignant ascites and presumed malignant effusions 4. Protein calorie malnutrition 5. Abdominal pain Plan: -CXR now -may need other side drained -f/u cytology of R thoracentesis -monitor volumes -pain control Subjective ROS Limited/Unobtainable: Yes Interval Events: Has had R thoracentesis. Feels short of breath. Abdominal pain Constitutional: Reports: anorexia HEENT: Repors: no symptoms Respiratory: Reports: shortness of breath Cardiovascular: Reports: no symptoms Gastrointestinal/Abdominal: Reports: bloating Allergies: Coded Allergies: No Known Allergies (Unverified , 06/17/18) Objective Last 24 Hour Vital Signs Date Time Temp Pulse Resp B/P (MAP) Pulse Ox O2 Delivery O2 Flow Rate FiO2 06/23/18 09:00 Nasal Cannula 2.0 Nasal Cannula 2.0 06/23/18 08:00 97.8 112 18 123/85 (98) 95 06/23/18 08:00 108 06/23/18 04:00 102 06/23/18 04:00 97.5 103 17 123/85 (98) 93 06/23/18 00:00 97.2 100 19 126/85 (99) 94 06/23/18 00:00 101 06/22/18 21:00 Nasal Cannula 2.0 Nasal Cannula 2.0 06/22/18 20:12 95 Nasal Cannula 1.0 24 06/22/18 20:12 Nasal Cannula 1.0 24 06/22/18 20:11 100 18 Nasal Cannula 1.0 24 06/22/18 20:00 96.9 103 19 123/88 (100) 94 06/22/18 16:00 98 06/22/18 16:00 97.8 109 22 129/87 (101) 94 06/22/18 13:30 98.2 97 18 129/89 (102) 96 Intake and Output 06/22/18 06/23/18 19:00 07:00 Intake Total 27.5 ml Output Total 800 ml 1000 ml Balance -772.5 ml -1000 ml IV Total 27.5 ml Output Urine Total 800 ml 1000 ml # Voids 1 General Appearance: no acute distress HEENT: normocephalic, atraumatic Respiratory/Chest: decreased breath sounds Cardiovascular: normal rate, regular rhythm Abdomen: normal bowel sounds, tender Extremities: no edema Neurologic/Psychiatric: responsive Current Medications Medications (Trade) Dose Ordered Sig/Susana Route PRN Reason Start Time Stop Time Status Last Admin Dose Admin Acetaminophen (Tylenol) 500 mg Q4H PRN ORAL Mild Pain/Temp > 100.5 06/17/18 09:30 07/17/18 09:29 06/17/18 18:21 Bisacodyl (Dulcolax) 10 mg DAILY ORAL 06/20/18 09:00 07/20/18 08:59 06/23/18 08:38 Docusate Sodium (Colace) 100 mg TWICE A DAY ORAL 06/19/18 19:00 07/19/18 18:59 06/23/18 08:39 Fluconazole (Diflucan) 100 mg DAILY ORAL 06/20/18 12:00 06/27/18 11:59 06/23/18 08:39 Furosemide (Lasix) 20 mg DAILY IV 06/24/18 09:00 07/18/18 08:59 Heparin Sodium (Porcine) (Heparin 5000 units/ml) 5,000 units EVERY 12 HOURS SUBQ 06/21/18 09:00 07/21/18 08:59 06/23/18 08:40 Magnesium Hydroxide (Mom) 30 ml Q4H PRN ORAL Constipation 06/19/18 18:30 07/19/18 18:29 06/19/18 22:49 Morphine Sulfate (Morphine Sulfate) 2 mg Q4H PRN IVP Moderate pain 06/18/18 16:47 06/25/18 16:46 06/21/18 20:23 Morphine Sulfate (Morphine Sulfate) 4 mg Q4H PRN IVP Severe pain 06/18/18 16:47 06/25/18 16:46 06/22/18 20:28 Pantoprazole (Protonix) 40 mg DAILY ORAL 06/18/18 09:00 07/18/18 08:59 06/23/18 08:39 Piperacillin Sod/ Tazobactam Sod 3.375 gm/Sodium Chloride 110 ml @ 27.5 mls/hr EVERY 8 HOURS IVPB 06/21/18 14:00 06/26/18 13:59 06/23/18 07:03 Potassium Chloride (K-Dur) 40 meq TWICE A DAY ORAL 06/20/18 18:00 07/18/18 17:59 06/23/18 08:39 Zolpidem Tartrate (Ambien) 5 mg HSPRN PRN ORAL Insomnia 06/21/18 12:00 06/28/18 11:59 06/22/18 20:51 Phillip Patel MD Jun 23, 2018 11:10
[2018-06-23] MEDS ORDERED: Acetaminophen 500mg (ES) tab ORAL PRN (11:30)
--- NOTE | 2018-06-23 12:31 | Infectious Diseases Prog Note ---
Assessment/Plan Assessment/Plan A 1. Enterococcal , candidal UTI 2. Acute cholecystitis 3. pleural effusion s/p thoracentesis 4. leucocytosis 5. ovarian cancer P 1.Continue Zosyn & fluconazole 2 .waiting for GI & surgical evaluation Subjective ROS Limited/Unobtainable: No Constitutional: Reports: no symptoms Respiratory: Reports: no symptoms Gastrointestinal/Abdominal: Reports: other - on and off abdominal pain Genitourinary: Reports: no symptoms Allergies: Coded Allergies: No Known Allergies (Unverified , 06/17/18) Objective Vital Signs Last 24 Hour Vital Signs Date Time Temp Pulse Resp B/P (MAP) Pulse Ox O2 Delivery O2 Flow Rate FiO2 06/23/18 12:00 97.1 102 16 129/87 (101) 99 06/23/18 09:00 Nasal Cannula 2.0 Nasal Cannula 2.0 06/23/18 08:00 97.8 112 18 123/85 (98) 95 06/23/18 08:00 108 06/23/18 07:50 105 17 Nasal Cannula 2.0 28 06/23/18 07:50 Nasal Cannula 2.0 28 06/23/18 07:50 96 Nasal Cannula 2.0 28 06/23/18 04:00 102 06/23/18 04:00 97.5 103 17 123/85 (98) 93 06/23/18 00:00 97.2 100 19 126/85 (99) 94 06/23/18 00:00 101 06/22/18 21:00 Nasal Cannula 2.0 Nasal Cannula 2.0 06/22/18 20:12 95 Nasal Cannula 1.0 24 06/22/18 20:12 Nasal Cannula 1.0 24 06/22/18 20:11 100 18 Nasal Cannula 1.0 24 06/22/18 20:00 96.9 103 19 123/88 (100) 94 06/22/18 16:00 98 06/22/18 16:00 97.8 109 22 129/87 (101) 94 06/22/18 13:30 98.2 97 18 129/89 (102) 96 Height (Feet): 5 Height (Inches): 2.00 Weight (Pounds): 130 General Appearance: no acute distress HEENT: mucous membranes moist Respiratory/Chest: lungs clear Cardiovascular: tachycardia Abdomen: soft, non tender, other - scar of midline surgery Extremities: no edema Neurologic/Psychiatric: alert, oriented x 3, responsive Current Medications Medications (Trade) Dose Ordered Sig/Susana Route PRN Reason Start Time Stop Time Status Last Admin Dose Admin Acetaminophen (Tylenol) 500 mg Q4H PRN ORAL Mild Pain/Temp > 100.5 06/23/18 11:30 07/17/18 11:29 Bisacodyl (Dulcolax) 10 mg DAILY ORAL 06/24/18 09:00 07/20/18 08:59 Docusate Sodium (Colace) 100 mg TWICE A DAY ORAL 06/23/18 18:00 07/19/18 18:59 Fluconazole (Diflucan) 100 mg DAILY ORAL 06/24/18 09:00 06/27/18 11:59 Furosemide (Lasix) 20 mg DAILY IV 06/24/18 09:00 07/18/18 08:59 Heparin Sodium (Porcine) (Heparin 5000 units/ml) 5,000 units EVERY 12 HOURS SUBQ 06/23/18 21:00 07/21/18 08:59 Magnesium Hydroxide (Mom) 30 ml Q4H PRN ORAL Constipation 06/23/18 14:30 07/19/18 18:29 Morphine Sulfate (Morphine Sulfate) 2 mg Q4H PRN IVP Moderate Pain (Pain Scale 4-6) 06/23/18 13:00 06/25/18 16:46 Morphine Sulfate (Morphine Sulfate) 4 mg Q4H PRN IVP Severe Pain (Pain Scale 7-10) 06/23/18 13:00 06/25/18 16:46 Pantoprazole (Protonix) 40 mg DAILY ORAL 06/24/18 09:00 07/18/18 08:59 Piperacillin Sod/ Tazobactam Sod 3.375 gm/Sodium Chloride 110 ml @ 27.5 mls/hr EVERY 8 HOURS IVPB 06/23/18 14:00 06/28/18 13:59 Potassium Chloride (K-Dur) 40 meq TWICE A DAY ORAL 06/23/18 18:00 07/18/18 17:59 Zolpidem Tartrate (Ambien) 5 mg HSPRN PRN ORAL Insomnia 06/23/18 12:00 06/28/18 11:59 Eugenio Goss MD Jun 23, 2018 12:31
[2018-06-23] MEDS ORDERED: Morphine Sulfate 4mg/ml Inj (IV USE ONLY) IVP PRN (13:00)
[2018-06-23] MEDS ORDERED: Morphine Sulfate 2mg/ml Inj(IV/IM USE ONLY) IVP PRN (13:00)
--- NOTE | 2018-06-23 13:20 | NUR ---
RADIOLOGY DEPT CHEST X-RAY DONE.-P.DYE
[2018-06-23] MEDS ORDERED: Milk of Magnesia 30ml Ud ORAL PRN (14:30)
--- NOTE | 2018-06-23 14:52 | NUR ---
RD ASSESSMENT & RECOMMENDATIONS SEE CARE ACTIVITY FOR COMPLETE ASSESSMENT DAILY ESTIMATED NEEDS: Needs based on Cancer 56kg 30-35 kcals/kg 6839-8499 total kcals 1-2 g protein/kg 56-112 g total protein 25-30 mL/kg 5791-4603 total fluid mLs NUTRITION DIAGNOSIS: Increased kcal and protein needs r/t cancer as evidenced by pt w/ ovarian cancer s/p resection, currently w/ poor po intake. CURRENT DIET:Regular puree PO DIET RECOMMENDATIONS: Canvas/ Regular diet (texture per [employer]) ADDITIONAL RECOMMENDATIONS: 1) Obtain a calibrated bed scale wt-> pt w/ poor po 2) Add snacks in b/w meals + Ensure enlive daily 3) HgA1C for eval (BG 131-144) 4) On lasix, add B-complex daily 5) [employer] eval / appropriate texture for improved po intake
--- NOTE | 2018-06-23 15:47 | Diagnostic Imaging Report ---
Indication: Shortness of breath Technique: One view of the chest Comparison: 06/18/2018 Findings: Large left pleural effusion is again demonstrated, similar in size to the previous study. Interim development of a moderate-sized right-sided pleural effusion. There may be minimal underlying pulmonary venous congestion, unchanged if real. Impression: Evidence of reaccumulation of right-sided pleural effusion. Unchanged left pleural effusion, over 5 days
--- NOTE | 2018-06-23 16:28 | GI Initial Consult Note ---
History of Present Illness General Date patient seen: Jun 23, 2018 Time patient seen: 16:09 Reason for Hospitalization: Dyspnea/Respdistress Referring physician: Sachin Reason for Consultation: ABDOMINAL PAIN Present Illness HPI This is a unfortunate 72-year-old Bengali speaking female with recent history of ovarian cancer with metastatic spread. She had surgery done on just here at [facility]. She is currently undergoing chemotherapy therapy. She also has pleural effusion bilaterally required thoracentesis with the last admission. She presents with chief complaint of shortness of breath. His is chronic but worse in the last couple days. Worse tonight. Per EMS observation was low 90% on room air. Better after oxygen. Worse with lying flat. Denies any fever or chills. Has chronic cough. GI consulted for abdominal pain. ROS limited, pt seen awake A&O with daughter at bedside. Patient was a recent admission to [facility], where the patient underwent a serial paracentesis with fluid cytology which showed findings consistent with malignant cells. 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 The patient is now s/p thoracentesis here with approximately 1L yield here at [facility]. Abdominal US was performed here noted that the liver showed a coarsened echotexture. There are multiple gallstones within the gallbladder with moderate wall thickening. HIDA scan was performed to be consistent with acute cholecystitis. The patient has no known history of endoscopic colonoscopy. Home Meds Reported Medications Morphine HCl (Morphine Sulfate ER) 15 Mg Tablet.er, 15 MG ORAL BID, TAB 06/21/18 Hydrocodone Bit/Acetaminophen 5-325* (NORCO 5-325*) 1 Each Tablet, ORAL Q4H PRN for For Pain, TAB 0 Refills 06/17/18 Discontinued Reported Medications Morphine Sulfate (Morphine Sulfate ER) 100 Mg Tablet.er, ORAL EVERY 12 HOURS, # 30 TAB 0 Refills 06/17/18 Med list reviewed/reconciled: Yes Allergies: Coded Allergies: No Known Allergies (Unverified , 06/17/18) Patient History History Provided By: Family Member, Medical Record PMH Narrative Past Medical History: see triage record, old chart reviewed Past Surgical History: other Pertinent Family History: none Social History: Denies: smoking Last Menstrual Period: CONCEPCION Now: No Immunizations: other Reviewed Nursing Documentation: PMH: Agreed; PSxH: Agreed Nursing Documentation-PMH Past Medical History: No History, Except For Hx Cardiac Problems: Yes Hx Cancer: Yes - ovarian Social History: Denies: smoking, alcohol use, drug use, other Review of Systems All Other Systems: negative except mentioned in HPI Physical Exam Vital Signs Date Time Temp Pulse Resp B/P (MAP) Pulse Ox O2 Delivery O2 Flow Rate FiO2 06/19/18 08:00 97.4 107 22 129/84 (99) 96 06/19/18 08:04 Nasal Cannula 2.0 28 Sp02 EP Interpretation: reviewed, normal General Appearance: well appearing, no apparent distress, alert Head: normocephalic EENT: PERRL/EOMI, normal ENT inspection Neck: supple Respiratory: normal breath sounds, no respiratory distress Cardiovascular: normal rate Gastrointestinal: normal inspection, non tender, soft, normal bowel sounds, non -distended Rectal: deferred Genitourinary: no CVA tenderness Musculoskeletal: normal inspection, back normal Neurologic: normal inspection, alert, oriented x3, responsive Psychiatric: normal inspection, judgement/insight normal, memory normal Skin: normal inspection, normal color, no rash, warm/dry, palpation normal, well hydrated Lymphatic: normal inspection, no adenopathy Current Medications Current Medications Medications (Trade) Dose Ordered Sig/Susana Route PRN Reason Start Time Stop Time Status Last Admin Dose Admin Acetaminophen (Tylenol) 500 mg Q4H PRN ORAL Mild Pain/Temp > 100.5 06/23/18 11:30 07/17/18 11:29 Bisacodyl (Dulcolax) 10 mg DAILY ORAL 06/24/18 09:00 07/20/18 08:59 Docusate Sodium (Colace) 100 mg TWICE A DAY ORAL 06/23/18 18:00 07/19/18 18:59 Fluconazole (Diflucan) 100 mg DAILY ORAL 06/24/18 09:00 06/27/18 11:59 Furosemide (Lasix) 20 mg DAILY IV 06/24/18 09:00 07/18/18 08:59 Heparin Sodium (Porcine) (Heparin 5000 units/ml) 5,000 units EVERY 12 HOURS SUBQ 06/23/18 21:00 07/21/18 08:59 Magnesium Hydroxide (Mom) 30 ml Q4H PRN ORAL Constipation 06/23/18 14:30 07/19/18 18:29 Morphine Sulfate (Morphine Sulfate) 2 mg Q4H PRN IVP Moderate Pain (Pain Scale 4-6) 06/23/18 13:00 06/25/18 16:46 Morphine Sulfate (Morphine Sulfate) 4 mg Q4H PRN IVP Severe Pain (Pain Scale 7-10) 06/23/18 13:00 06/25/18 16:46 Pantoprazole (Protonix) 40 mg DAILY ORAL 06/24/18 09:00 07/18/18 08:59 Piperacillin Sod/ Tazobactam Sod 3.375 gm/Sodium Chloride 110 ml @ 27.5 mls/hr EVERY 8 HOURS IVPB 06/23/18 14:00 06/28/18 13:59 06/23/18 13:58 Potassium Chloride (K-Dur) 40 meq TWICE A DAY ORAL 06/23/18 18:00 07/18/18 17:59 Zolpidem Tartrate (Ambien) 5 mg HSPRN PRN ORAL Insomnia 06/23/18 12:00 06/28/18 11:59 GI: Plan Problems: (1) Abdominal pain (2) Cholecystitis (3) Cancer, metastatic (4) Cirrhosis (5) Hypoalbuminemia Plan HIDA reviewed >> suggestive of acute cholecystitis Hx of serial paracentesis, ascites dx to be malignant at [facility] s/p thoracentesis yielding .8L supportive care/follow up oncology recommendations follow up surgical recommendations no plans for GI procedures at this time. serial imaging prn patient will need follow up imaging for her cirrhosis and ascites abx pain mgmt ppi Discussed with Dr. Miller. Thank you for this patient referral, we will follow. The patient was seen and examined at bedside and all new and available data was reviewed in the patients chart. I agree with the above findings, impression and plan. (Patient seen earlier today. Signature stamp does not reflect patient encounter time.). - MD Randi JohnsonDign[facility] Jun 23, 2018 16:28
--- NOTE | 2018-06-23 16:57 | General Progress Note ---
Assessment/Plan Assessment/Plan (1) Intractable pain (2) Ovarian cancer Patient to be continued on Morphine. Dr. Breaux and he concurred. Subjective Date patient seen: Jun 23, 2018 Time patient seen: 04:51 - pm Constitutional: Reports: weakness HEENT: Reports: no symptoms Respiratory: Reports: no symptoms Gastrointestinal/Abdominal: Reports: abdominal pain Genitourinary: Reports: no symptoms Neurologic/Psychiatric: Reports: weakness Endocrine: Reports: no symptoms Hematologic/Lymphatic: Reports: no symptoms Allergies: Coded Allergies: No Known Allergies (Unverified , 06/17/18) Subjective Patient is in bed with family at bed side. Denies pain at this time. Using the Morphine as needed. Objective Last 24 Hour Vital Signs Date Time Temp Pulse Resp B/P (MAP) Pulse Ox O2 Delivery O2 Flow Rate FiO2 06/23/18 16:00 97.5 108 16 126/88 (101) 98 06/23/18 12:00 97.1 102 16 129/87 (101) 99 06/23/18 09:00 Nasal Cannula 2.0 Nasal Cannula 2.0 06/23/18 08:00 97.8 112 18 123/85 (98) 95 06/23/18 08:00 108 06/23/18 07:50 105 17 Nasal Cannula 2.0 28 06/23/18 07:50 Nasal Cannula 2.0 28 06/23/18 07:50 96 Nasal Cannula 2.0 28 06/23/18 04:00 102 06/23/18 04:00 97.5 103 17 123/85 (98) 93 06/23/18 00:00 97.2 100 19 126/85 (99) 94 06/23/18 00:00 101 06/22/18 21:00 Nasal Cannula 2.0 Nasal Cannula 2.0 06/22/18 20:12 95 Nasal Cannula 1.0 24 06/22/18 20:12 Nasal Cannula 1.0 24 06/22/18 20:11 100 18 Nasal Cannula 1.0 24 06/22/18 20:00 96.9 103 19 123/88 (100) 94 Intake and Output 06/22/18 06/23/18 18:59 06:59 Intake Total 27.5 ml Output Total 800 ml 1000 ml Balance -772.5 ml -1000 ml IV Total 27.5 ml Output Urine Total 800 ml 1000 ml # Voids 1 Height (Feet): 5 Height (Inches): 2.00 Weight (Pounds): 130 General Appearance: no apparent distress, alert EENT: PERRL/EOMI Neck: normal alignment, supple Cardiovascular: normal rate, regular rhythm Respiratory/Chest: decreased breath sounds Abdomen: tender Extremities: non-tender Edema: no edema noted Arm (L), no edema noted Arm (R), no edema noted Leg (L), no edema noted Leg (R), no edema noted Pedal (L), no edema noted Pedal (R), no edema noted Generalized Neurologic: alert, responsive Skin: normal pigmentation Tenzin Foster Jun 23, 2018 16:57
--- NOTE | 2018-06-23 18:30 | Consultation ---
History of Present Illness General Date patient seen: Jun 23, 2018 Chief Complaint: Dyspnea/Respdistress Referring physician: Sachin Reason for Consultation: ABDOMINAL PAIN Present Illness HPI 72 year old female with complex medical history including ovarian cancer with metastatic spread. She had surgery prior at [facility] for this and is currently undergoing chemotherapy. She presented with chief complaint of shortness of breath. During admission noted to have abdominal pain. surgery called to evaluate. patient seen, chart reviewed, patient examined. she was a recently admitted to [facility] where she had paracentesis with fluid consistent with malignant cells. 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 Abdominal US was performed and noted that the liver showed a coarsened echotexture, multiple gallstones within the gallbladder, and moderate wall thickening. HIDA scan was performed to be consistent with acute cholecystitis. Allergies: Coded Allergies: No Known Allergies (Unverified , 06/17/18) Medication History Scheduled Morphine HCl (Morphine Sulfate ER), 15 MG ORAL BID, (Reported) Scheduled PRN Hydrocodone Bit/Acetaminophen 5-325* ([place] 5-325*), Unknown Dose ORAL Q4H PRN for For Pain, (Reported) Discontinued Medications Morphine Sulfate (Morphine Sulfate ER), Unknown Dose ORAL EVERY 12 HOURS, ( Reported) Discontinued Reason: Medication dose changed Patient History Limited by: language barrier History Provided By: Patient, Medical Record, PMD Healthcare decision maker Resuscitation status Full Code Advanced Directive on File No Past Medical/Surgical History Past Medical/Surgical History: (1) Ovarian carcinoma (2) Respiratory distress (3) Pleural effusion (4) Hyponatremia (5) Hypoalbuminemia (6) Cholecystitis (7) Cirrhosis (8) Abdominal pain (9) Cancer, metastatic Review of Systems All Other Systems: negative except mentioned in HPI Physical Exam General Appearance: no apparent distress Lines, tubes and drains: peripheral HEENT: mucous membranes moist Neck: normal inspection Respiratory/Chest: no respiratory distress Cardiovascular/Chest: normal rate Abdomen: soft, distended, tender, other - fluid filled Extremities: normal inspection Skin Exam: warm/dry Neurologic: alert, responsive Last 24 Hour Vital Signs Date Time Temp Pulse Resp B/P (MAP) Pulse Ox O2 Delivery O2 Flow Rate FiO2 06/23/18 16:00 97.5 108 16 126/88 (101) 98 2/12/19 12:00 97.1 102 16 129/87 (101) 99 06/23/18 09:00 Nasal Cannula 2.0 Nasal Cannula 2.0 06/23/18 08:00 97.8 112 18 123/85 (98) 95 06/23/18 08:00 108 06/23/18 07:50 105 17 Nasal Cannula 2.0 28 06/23/18 07:50 Nasal Cannula 2.0 28 06/23/18 07:50 96 Nasal Cannula 2.0 28 06/23/18 04:00 102 06/23/18 04:00 97.5 103 17 123/85 (98) 93 06/23/18 00:00 97.2 100 19 126/85 (99) 94 06/23/18 00:00 101 06/22/18 21:00 Nasal Cannula 2.0 Nasal Cannula 2.0 06/22/18 20:12 95 Nasal Cannula 1.0 24 06/22/18 20:12 Nasal Cannula 1.0 24 06/22/18 20:11 100 18 Nasal Cannula 1.0 24 06/22/18 20:00 96.9 103 19 123/88 (100) 94 Intake and Output 06/22/18 06/23/18 19:00 07:00 Intake Total 27.5 ml Output Total 800 ml 1000 ml Balance -772.5 ml -1000 ml IV Total 27.5 ml Output Urine Total 800 ml 1000 ml # Voids 1 Height (Feet): 5 Height (Inches): 2.00 Weight (Pounds): 130 Medications Current Medications Medications (Trade) Dose Ordered Sig/Susana Route PRN Reason Start Time Stop Time Status Last Admin Dose Admin Acetaminophen (Tylenol) 500 mg Q4H PRN ORAL Mild Pain/Temp > 100.5 06/23/18 11:30 07/17/18 11:29 06/23/18 16:06 Bisacodyl (Dulcolax) 10 mg DAILY ORAL 06/24/18 09:00 07/20/18 08:59 Docusate Sodium (Colace) 100 mg TWICE A DAY ORAL 06/23/18 18:00 07/19/18 18:59 06/23/18 18:21 Fluconazole (Diflucan) 100 mg DAILY ORAL 06/24/18 09:00 06/27/18 11:59 Furosemide (Lasix) 20 mg DAILY IV 06/24/18 09:00 07/18/18 08:59 Heparin Sodium (Porcine) (Heparin 5000 units/ml) 5,000 units EVERY 12 HOURS SUBQ 06/23/18 21:00 07/21/18 08:59 Magnesium Hydroxide (Mom) 30 ml Q4H PRN ORAL Constipation 06/23/18 14:30 07/19/18 18:29 Morphine Sulfate (Morphine Sulfate) 2 mg Q4H PRN IVP Moderate Pain (Pain Scale 4-6) 06/23/18 13:00 06/25/18 16:46 Morphine Sulfate (Morphine Sulfate) 4 mg Q4H PRN IVP Severe Pain (Pain Scale 7-10) 06/23/18 13:00 06/25/18 16:46 Pantoprazole (Protonix) 40 mg DAILY ORAL 06/24/18 09:00 07/18/18 08:59 Piperacillin Sod/ Tazobactam Sod 3.375 gm/Sodium Chloride 110 ml @ 27.5 mls/hr EVERY 8 HOURS IVPB 06/23/18 14:00 06/28/18 13:59 06/23/18 13:58 Potassium Chloride (K-Dur) 40 meq TWICE A DAY ORAL 06/23/18 18:00 07/18/18 17:59 06/23/18 18:21 Zolpidem Tartrate (Ambien) 5 mg HSPRN PRN ORAL Insomnia 06/23/18 12:00 06/28/18 11:59 Assessment/Plan Problem List: (1) Cholecystitis Assessment & Plan: acute cholecystitis ovarian cancer with mets complicated medical and surgical history given above no surgery recommended. needs further work up CT A/P ordered will need IR percutaneous cholecystostomy likely will follow with recs as results available thank you ICD Codes: K81.9 - Cholecystitis, unspecified SNOMED: 14589762 (2) Abdominal pain ICD Codes: R10.9 - Unspecified abdominal pain SNOMED: 24186703 Rich Kiran Jun 23, 2018 18:30
[2018-06-23] MEDS ORDERED: Gastrograffin 30ml ORAL PRN (18:45)
[2018-06-23] MEDS ORDERED: Isovue-300 100ml vial INJ PRN (18:45)
--- NOTE | 2018-06-23 18:54 | General Progress Note ---
Assessment/Plan Assessment/Plan Assessment/Recommendations # Thrombocytosis - likely related to reactive process, ovarian cancer potential hx of mets --> Continue to monitor for improvement --> plt trend: 860-->863-->917-->937 --> Trend CBC as needed --> Jak2 has been ordered --> Smear reviewed and no abnormalities noted. *Under manual differential # ovarian cancer s/p resection with likely malignant ascites and presumed malignant effusions --> review outside imaging and treatments patient has received --> outside labs and pathology to be reviewed --> defer to outpatient oncologist for further care, patient requires followup, has followup with [facility] # Anemia of chronic disease (or of iron deficiency) due to underlying chronic medical issues, multifactorial --> Anemia workup has been reviewed, --> No evidence of hemolysis is noted, peripheral smear has been reviewed. --> Hgb goal >7. Transfuse prn. --> Epogen or iron at this time is not particularly indicated --> Medications have been reviewed # Leukocytosis. Likely related to underlying infection versus reactive process. --> Peripheral has been ordered, no blasts are noted --> Medications have been reviewed --> Imaging has been reviewed --> Blood cultures and urine cultures prn --> has been started on abx, empiric treatment # Shortness of breath # Large bilateral pleural effusions --> thoracentesis eval with pleural fluid studies --> 06/18: Successful ultrasound-guided right thoracentesis, yielding 0.8 liters of fluid The timing of this note does not necessarily reflect the time of the patient was seen. Greatly appreciate consultation! Subjective ROS Limited/Unobtainable: Yes Allergies: Coded Allergies: No Known Allergies (Unverified , 06/17/18) Subjective 06/18: thoracentesis eval with pleural fluid studies today, plt remains elevated. 06/19: seen by bedside, no acute distress, no signs of pain. No pneumothorax is reported on CXR 06/22: Patient is is resting in bed with family at bed side. Patient has pain which is at a moderate level and tolerated on the Morphine. HIDA scan reveals, suspicious for acute cholecystitis. plt continue to be elevated and trending up. 06/23: seen by bedside, awake, comfortable, no acute distress, no events Objective Last 24 Hour Vital Signs Date Time Temp Pulse Resp B/P (MAP) Pulse Ox O2 Delivery O2 Flow Rate FiO2 06/23/18 16:00 97.5 108 16 126/88 (101) 98 06/23/18 12:00 97.1 102 16 129/87 (101) 99 06/23/18 09:00 Nasal Cannula 2.0 Nasal Cannula 2.0 06/23/18 08:00 97.8 112 18 123/85 (98) 95 06/23/18 08:00 108 06/23/18 07:50 105 17 Nasal Cannula 2.0 28 06/23/18 07:50 Nasal Cannula 2.0 28 06/23/18 07:50 96 Nasal Cannula 2.0 28 06/23/18 04:00 102 06/23/18 04:00 97.5 103 17 123/85 (98) 93 06/23/18 00:00 97.2 100 19 126/85 (99) 94 06/23/18 00:00 101 06/22/18 21:00 Nasal Cannula 2.0 Nasal Cannula 2.0 06/22/18 20:12 95 Nasal Cannula 1.0 24 06/22/18 20:12 Nasal Cannula 1.0 24 06/22/18 20:11 100 18 Nasal Cannula 1.0 24 06/22/18 20:00 96.9 103 19 123/88 (100) 94 Intake and Output 06/22/18 06/23/18 19:00 07:00 Intake Total 27.5 ml Output Total 800 ml 1000 ml Balance -772.5 ml -1000 ml IV Total 27.5 ml Output Urine Total 800 ml 1000 ml # Voids 1 Height (Feet): 5 Height (Inches): 2.00 Weight (Pounds): 130 Objective Physical Exam General Appearance: no apparent distress, alert HEENT: normocephalic, atraumatic Neck: supple Respiratory/Chest: decreased breath sounds Cardiovascular/Chest: normal rate, regular rhythm Abdomen: non tender, soft Extremities: no edema Keegan Flores MD Jun 23, 2018 18:54
--- NOTE | 2018-06-23 19:47 | NUR ---
HAND-OFF: Report given to Latasha KIRBY. Patient is stable.
--- NOTE | 2018-06-23 19:48 | NUR ---
NURSE NOTES: Received report & pt from KOFI Seth. Pt lying in bed, a&ox4, Telugu speaking, on o2 via NC @ 2LPM, family member at bedside. No s/s of acute distress & no c/o pain at this time. [place] intact draining yellow urine output to gravity. IV site x2 intact & S/L'd. Bed in lowest position, call light within reach. Will continue to monitor.
[2018-06-23] MEDS: Zolpidem 5mg tab ORAL PRN (20:47)
--- NOTE | 2018-06-23 21:31 | Cardiology Progress Note ---
Assessment/Plan Assessment/Plan 1. Sinus tachycardia, likely due to intravascular volume depletion due to low oncotic pressure, consider albumin administration. Other etiologies include sepsis and increased tumor burden. 2. B/L pleural effusion, s/p thoracentesis 3. Metastatic ovarian cancer 4. FTT 5. Respiratory failure. 6. Encephalopathy 7. Moderate pulmonary HTN. Subjective Subjective Sinus tachycardia at rate of 108. Objective Last 24 Hour Vital Signs Date Time Temp Pulse Resp B/P (MAP) Pulse Ox O2 Delivery O2 Flow Rate FiO2 06/23/18 16:00 97.5 108 16 126/88 (101) 98 06/23/18 12:00 97.1 102 16 129/87 (101) 99 06/23/18 09:00 Nasal Cannula 2.0 Nasal Cannula 2.0 06/23/18 08:00 97.8 112 18 123/85 (98) 95 06/23/18 08:00 108 06/23/18 07:50 105 17 Nasal Cannula 2.0 28 06/23/18 07:50 Nasal Cannula 2.0 28 06/23/18 07:50 96 Nasal Cannula 2.0 28 06/23/18 04:00 102 06/23/18 04:00 97.5 103 17 123/85 (98) 93 06/23/18 00:00 97.2 100 19 126/85 (99) 94 06/23/18 00:00 101 Intake and Output 06/22/18 06/23/18 19:00 07:00 Intake Total 27.5 ml Output Total 800 ml 1000 ml Balance -772.5 ml -1000 ml IV Total 27.5 ml Output Urine Total 800 ml 1000 ml # Voids 1 2D Echo: LVEF 65%, Grade I LVDD, pleural effusion, RVSP 48 mmHg Objective HEENT: Atraumatic and normocephalic. Anicteric. Pupils are equal, round, and reactive to light and accommodation. Extraocular muscles intact. NECK: JVP less than 5 cm. No carotid bruit. Carotid upstrokes 2+ bilaterally. CARDIOVASCULAR: Normal S1, S2. Regular rate and rhythm. No murmurs, gallops, or rubs. LUNGS: Diminished breath sounds in both bases. ABDOMEN: Soft, nontender, and nondistended. No hepatosplenomegaly. Positive bowel sounds. An abdominal incision site is clean. EXTREMITIES: No evidence of edema, clubbing, or cyanosis. Andrew Man MD Jun 23, 2018 21:31
--- NOTE | 2018-06-23 21:34 | General Progress Note ---
Assessment/Plan Problem List: (1) Ovarian carcinoma ICD Codes: C56.9 - Malignant neoplasm of unspecified ovary SNOMED: 969582150 Qualifiers: Qualified Codes: C56.9 - Malignant neoplasm of unspecified ovary (2) Respiratory distress ICD Codes: R06.03 - Acute respiratory distress SNOMED: 110661548 (3) Pleural effusion ICD Codes: J90 - Pleural effusion, not elsewhere classified SNOMED: 45086464 (4) Hypoalbuminemia ICD Codes: E88.09 - Other disorders of plasma-protein metabolism, not elsewhere classified SNOMED: 433250760 Status: progressing Assessment/Plan abdominal pain so consulted gi and dr jacobsen in [place] of recent abdominal surgery for ovarian cancer still short of breath pleural effusion s/p resent ovarian removal and hysterectomy Subjective Gastrointestinal/Abdominal: Reports: abdominal pain Allergies: Coded Allergies: No Known Allergies (Unverified , 06/17/18) Subjective sob Objective Last 24 Hour Vital Signs Date Time Temp Pulse Resp B/P (MAP) Pulse Ox O2 Delivery O2 Flow Rate FiO2 06/23/18 16:00 97.5 108 16 126/88 (101) 98 06/23/18 12:00 97.1 102 16 129/87 (101) 99 06/23/18 09:00 Nasal Cannula 2.0 Nasal Cannula 2.0 06/23/18 08:00 97.8 112 18 123/85 (98) 95 06/23/18 08:00 108 06/23/18 07:50 105 17 Nasal Cannula 2.0 28 06/23/18 07:50 Nasal Cannula 2.0 28 06/23/18 07:50 96 Nasal Cannula 2.0 28 06/23/18 04:00 102 06/23/18 04:00 97.5 103 17 123/85 (98) 93 06/23/18 00:00 97.2 100 19 126/85 (99) 94 06/23/18 00:00 101 Intake and Output 06/22/18 06/23/18 19:00 07:00 Intake Total 27.5 ml Output Total 800 ml 1000 ml Balance -772.5 ml -1000 ml IV Total 27.5 ml Output Urine Total 800 ml 1000 ml # Voids 1 Height (Feet): 5 Height (Inches): 2.00 Weight (Pounds): 130 Cardiovascular: normal rate Respiratory/Chest: rhonchi - bilaterally Abdomen: tender Vane Stephenson MD Jun 23, 2018 21:34
[2018-06-24 04:00] VITALS: BP 124/83
[2018-06-24] MEDS: Piperacillin/Tazobactam 3.375 GM in NS 110 ML IVPB SCH ×3 (05:59→21:39)
[2018-06-24 07:01] LABS: EOSINOPHILS % (AUTO) 0.4 % (0.0-3.0); HEMATOCRIT 33.1 % (37.0-47.0); HEMOGLOBIN 11.1 G/DL (12.0-16.0); MEAN CORPUSCULAR VOLUME 90 FL (80-99); MONOCYTES % (AUTO) 5.8 % (1.0-10.0); NEUTROPHILS % (AUTO) 83.8 % (45.0-75.0); PLATELET COUNT 770 K/UL (150-450); RED BLOOD COUNT 3.69 M/UL (4.20-5.40); RED CELL DISTRIBUTION WIDTH 14.7 % (11.6-14.8); WHITE BLOOD COUNT 10.8 K/UL (4.8-10.8)
--- NOTE | 2018-06-24 07:13 | NUR ---
HAND-OFF: Report given to KOFI Farr.
--- NOTE | 2018-06-24 07:20 | NUR ---
NURSE NOTES: Received patient from KOFI Pagan. Rounding done with outgoing nurse. Patient a/o x4 lying on the bed. No respiratory distress noted. Denies any pain at this time. Bed in lowest position, call light within reach. Will continue to monitor.
[2018-06-24 07:30] LABS: ALANINE AMINOTRANSFERASE 80 U/L (12-78); ALBUMIN 1.6 G/DL (3.4-5.0); ALBUMIN/GLOBULIN RATIO 0.4 (1.0-2.7); ALKALINE PHOSPHATASE 1476 U/L (46-116); ANION GAP 6 mmol/L (5-15); ASPARTATE AMINO TRANSFERASE 97 U/L (15-37); BILIRUBIN,TOTAL 0.8 MG/DL (0.2-1.0); BLOOD UREA NITROGEN 15 mg/dL (7-18); CALCIUM 8.8 MG/DL (8.5-10.1); CARBON DIOXIDE 30 MMOL/L (21-32); CHLORIDE 98 MMOL/L (98-107); CREATININE 0.5 MG/DL (0.55-1.30); PHOSPHORUS 2.9 MG/DL (2.5-4.9); SODIUM 134 MMOL/L (136-145)
[2018-06-24 08:00] VITALS: BP 129/85
--- NOTE | 2018-06-24 08:49 | General Progress Note ---
Assessment/Plan Assessment/Plan (1) Intractable pain (2) Ovarian cancer Patient to be continued on Morphine. Dr. Breaux and he concurred. Subjective Date patient seen: Jun 24, 2018 Time patient seen: 07:00 - am Allergies: Coded Allergies: No Known Allergies (Unverified , 06/17/18) Subjective Constitutional: Reports: weakness HEENT: Reports: no symptoms Respiratory: Reports: no symptoms Gastrointestinal/Abdominal: Reports: abdominal pain Genitourinary: Reports: no symptoms Neurologic/Psychiatric: Reports: weakness Endocrine: Reports: no symptoms Hematologic/Lymphatic: Reports: no symptoms Subjective Patient has been stable continues to c/o have pain and using the Morphine as needed. Objective Last 24 Hour Vital Signs Date Time Temp Pulse Resp B/P (MAP) Pulse Ox O2 Delivery O2 Flow Rate FiO2 06/24/18 08:00 97.6 101 18 129/85 (100) 97 06/24/18 04:00 97.7 99 17 124/83 (97) 97 06/23/18 23:54 97.7 104 18 129/85 (100) 98 06/23/18 21:00 Nasal Cannula 2.0 Nasal Cannula 2.0 06/23/18 20:00 97.2 104 18 123/83 (96) 98 06/23/18 16:00 97.5 108 16 126/88 (101) 98 06/23/18 12:00 97.1 102 16 129/87 (101) 99 06/23/18 09:00 Nasal Cannula 2.0 Nasal Cannula 2.0 Intake and Output 06/23/18 06/24/18 19:00 07:00 Intake Total 390 ml 300 ml Output Total 800 ml 500 ml Balance -410 ml -200 ml Intake Oral 390 ml 300 ml Output Urine Total 800 ml 500 ml # Bowel Movements 1 Laboratory Tests 06/24/18 05:41: White Blood Count 10.8, Red Blood Count 3.69L, Hemoglobin 11.1L, Hematocrit 33.1L, Mean Corpuscular Volume 90, Mean Corpuscular Hemoglobin 30.0, Mean Corpuscular Hemoglobin Concent 33.4, Red Cell Distribution Width 14.7, Platelet Count 770H, Mean Platelet Volume 4.6L, Neutrophils (%) (Auto) 83.8H, Lymphocytes (%) (Auto) 9.0L, Monocytes (%) (Auto) 5.8, Eosinophils (%) (Auto) 0.4, Basophils (%) (Auto) 1.0, Erythrocyte Sedimentation Rate [Pending], Prothrombin Time 10.1, Prothromb Time International Ratio 1.0, Activated Partial Thromboplast Time 28, Sodium Level 134L, Potassium Level 4.0, Chloride Level 98, Carbon Dioxide Level 30, Anion Gap 6, Blood Urea Nitrogen 15, Creatinine 0.5L, Estimat Glomerular Filtration Rate , Glucose Level 132H, Osmolality 283L, Uric Acid 1.9L, Calcium Level 8.8, Phosphorus Level 2.9, Magnesium Level 2.1, Total Bilirubin 0.8, Aspartate Amino Transf (AST/SGOT) 97H , Alanine Aminotransferase (ALT/SGPT) 80H, Alkaline Phosphatase 1476H, C- Reactive Protein, Quantitative 4.8H, Total Protein 5.3L, Albumin 1.6L, Globulin 3.7, Albumin/Globulin Ratio 0.4L, Amylase Level 39, Lipase 279 Height (Feet): 5 Height (Inches): 2.00 Weight (Pounds): 126 Objective General Appearance: no apparent distress, alert EENT: PERRL/EOMI Neck: normal alignment, supple Cardiovascular: normal rate, regular rhythm Respiratory/Chest: decreased breath sounds Abdomen: tender Extremities: non-tender Neurologic: alert, responsive Skin: normal pigmentation Tenzin Foster Jun 24, 2018 08:49
--- NOTE | 2018-06-24 10:05 | NUR ---
NURSE NOTES: Patient off the unit for CT of abd. pelvis.
--- NOTE | 2018-06-24 10:39 | Infectious Diseases Prog Note ---
Assessment/Plan Assessment/Plan A 1. Enterococcal , candidal UTI 2. Acute cholecystitis 3. pleural effusion s/p thoracentesis 4. leucocytosis resolved 5. ovarian cancer P 1.Continue Zosyn & fluconazole 2 According to surgeon no candidate for surgery 3. Will CT scan of abdomen & Pelvis Subjective ROS Limited/Unobtainable: Yes Constitutional: Reports: no symptoms Respiratory: Reports: no symptoms Gastrointestinal/Abdominal: Reports: no symptoms Allergies: Coded Allergies: No Known Allergies (Unverified , 06/17/18) Objective Vital Signs Last 24 Hour Vital Signs Date Time Temp Pulse Resp B/P (MAP) Pulse Ox O2 Delivery O2 Flow Rate FiO2 06/24/18 09:00 Nasal Cannula 2.0 Nasal Cannula 2.0 06/24/18 08:00 97.6 101 18 129/85 (100) 97 06/24/18 04:00 97.7 99 17 124/83 (97) 97 06/23/18 23:54 97.7 104 18 129/85 (100) 98 06/23/18 21:00 Nasal Cannula 2.0 Nasal Cannula 2.0 06/23/18 20:00 97.2 104 18 123/83 (96) 98 06/23/18 16:00 97.5 108 16 126/88 (101) 98 06/23/18 12:00 97.1 102 16 129/87 (101) 99 Height (Feet): 5 Height (Inches): 2.00 Weight (Pounds): 126 General Appearance: no acute distress HEENT: mucous membranes moist Respiratory/Chest: lungs clear Cardiovascular: tachycardia Abdomen: soft, non tender Extremities: no edema Neurologic/Psychiatric: alert, responsive Laboratory Tests Test 06/24/18 05:41 White Blood Count 10.8 K/UL (4.8-10.8) Red Blood Count 3.69 M/UL (4.20-5.40) L Hemoglobin 11.1 G/DL (12.0-16.0) L Hematocrit 33.1 % (37.0-47.0) L Mean Corpuscular Volume 90 FL (80-99) Mean Corpuscular Hemoglobin 30.0 PG (27.0-31.0) Mean Corpuscular Hemoglobin Concent 33.4 G/DL (32.0-36.0) Red Cell Distribution Width 14.7 % (11.6-14.8) Platelet Count 770 K/UL (150-450) H Mean Platelet Volume 4.6 FL (6.5-10.1) L Neutrophils (%) (Auto) 83.8 % (45.0-75.0) H Lymphocytes (%) (Auto) 9.0 % (20.0-45.0) L Monocytes (%) (Auto) 5.8 % (1.0-10.0) Eosinophils (%) (Auto) 0.4 % (0.0-3.0) Basophils (%) (Auto) 1.0 % (0.0-2.0) Erythrocyte Sedimentation Rate 67 MM/HR (0-30) H Prothrombin Time 10.1 SEC (9.30-11.50) Prothromb Time International Ratio 1.0 (0.9-1.1) Activated Partial Thromboplast Time 28 SEC (23-33) Sodium Level 134 MMOL/L (136-145) L Potassium Level 4.0 MMOL/L (3.5-5.1) Chloride Level 98 MMOL/L (98-107) Carbon Dioxide Level 30 MMOL/L (21-32) Anion Gap 6 mmol/L (5-15) Blood Urea Nitrogen 15 mg/dL (7-18) Creatinine 0.5 MG/DL (0.55-1.30) L Estimat Glomerular Filtration Rate mL/min (>60) Glucose Level 132 MG/DL (74-106) H Osmolality 283 mOsm/kg (297-317) L Uric Acid 1.9 MG/DL (2.6-7.2) L Calcium Level 8.8 MG/DL (8.5-10.1) Phosphorus Level 2.9 MG/DL (2.5-4.9) Magnesium Level 2.1 MG/DL (1.8-2.4) Total Bilirubin 0.8 MG/DL (0.2-1.0) Aspartate Amino Transf (AST/SGOT) 97 U/L (15-37) H Alanine Aminotransferase (ALT/SGPT) 80 U/L (12-78) H Alkaline Phosphatase 1476 U/L (46-116) H C-Reactive Protein, Quantitative 4.8 mg/dL (0.00-0.90) H Total Protein 5.3 G/DL (6.4-8.2) L Albumin 1.6 G/DL (3.4-5.0) L Globulin 3.7 g/dL Albumin/Globulin Ratio 0.4 (1.0-2.7) L Amylase Level 39 U/L (25-115) Lipase 279 U/L (73-393) Current Medications Medications (Trade) Dose Ordered Sig/Susana Route PRN Reason Start Time Stop Time Status Last Admin Dose Admin Acetaminophen (Tylenol) 500 mg Q4H PRN ORAL Mild Pain/Temp > 100.5 06/23/18 11:30 07/17/18 11:29 06/23/18 16:06 Bisacodyl (Dulcolax) 10 mg DAILY ORAL 06/24/18 09:00 07/20/18 08:59 Diatrizoate Meglum/ Diatrizoate Sod (Gastrografin) 30 ml NOW PRN ORAL Radiology Procedure 06/23/18 18:45 06/24/18 23:59 Docusate Sodium (Colace) 100 mg TWICE A DAY ORAL 06/23/18 18:00 07/19/18 18:59 06/23/18 18:21 Fluconazole (Diflucan) 100 mg DAILY ORAL 06/24/18 09:00 06/27/18 11:59 Furosemide (Lasix) 20 mg DAILY IV 06/24/18 09:00 07/18/18 08:59 06/24/18 10:05 Heparin Sodium (Porcine) (Heparin 5000 units/ml) 5,000 units EVERY 12 HOURS SUBQ 06/23/18 21:00 07/21/18 08:59 06/23/18 20:50 Iopamidol (Isovue-300 100ml) 100 ml NOW PRN INJ Radiology Procedure 06/23/18 18:45 06/24/18 18:44 Magnesium Hydroxide (Mom) 30 ml Q4H PRN ORAL Constipation 06/23/18 14:30 07/19/18 18:29 Morphine Sulfate (Morphine Sulfate) 2 mg Q4H PRN IVP Moderate Pain (Pain Scale 4-6) 06/23/18 13:00 06/25/18 16:46 Morphine Sulfate (Morphine Sulfate) 4 mg Q4H PRN IVP Severe Pain (Pain Scale 7-10) 06/23/18 13:00 06/25/18 16:46 Pantoprazole (Protonix) 40 mg DAILY ORAL 06/24/18 09:00 07/18/18 08:59 Piperacillin Sod/ Tazobactam Sod 3.375 gm/Sodium Chloride 110 ml @ 27.5 mls/hr EVERY 8 HOURS IVPB 06/23/18 14:00 06/28/18 13:59 06/24/18 05:59 Potassium Chloride (K-Dur) 40 meq TWICE A DAY ORAL 06/23/18 18:00 07/18/18 17:59 06/23/18 18:21 Zolpidem Tartrate (Ambien) 5 mg HSPRN PRN ORAL Insomnia 06/23/18 12:00 06/28/18 11:59 06/23/18 20:47 Eugenio Goss MD Jun 24, 2018 10:39
--- NOTE | 2018-06-24 10:40 | NUR ---
NURSE NOTES: Patient came back to the unit. Patient in stable condition. Denies any pain at this time.
[2018-06-24] MEDS: Docusate 100mg cap ORAL SCH ×2 (10:48→17:30)
[2018-06-24] MEDS: Fluconazole 100mg tab ORAL SCH (10:48)
[2018-06-24] MEDS: Bisacodyl EC 5mg tab ORAL SCH (10:49)
[2018-06-24] MEDS: Heparin 5000 units/ml inj SUBQ SCH ×2 (10:50→21:32)
--- NOTE | 2018-06-24 11:01 | GI Progress Note ---
Assessment/Plan Problems: (1) Cancer, metastatic ICD Codes: C79.9 - Secondary malignant neoplasm of unspecified site SNOMED: 828682882 (2) Abdominal pain ICD Codes: R10.9 - Unspecified abdominal pain SNOMED: 24469818 (3) Cirrhosis ICD Codes: K74.60 - Unspecified cirrhosis of liver SNOMED: 56742361 (4) Cholecystitis ICD Codes: K81.9 - Cholecystitis, unspecified SNOMED: 14456900 (5) Pleural effusion ICD Codes: J90 - Pleural effusion, not elsewhere classified SNOMED: 46157917 (6) Ovarian carcinoma ICD Codes: C56.9 - Malignant neoplasm of unspecified ovary SNOMED: 013709513 Qualifiers: Qualified Codes: C56.9 - Malignant neoplasm of unspecified ovary Status: unchanged Status Narrative Discussed with Dr. Miller Assessment/Plan HIDA reviewed >> suggestive of acute cholecystitis Hx of serial paracentesis, ascites dx to be malignant at [place] s/p thoracentesis yielding .8L supportive care/follow up oncology and surgical recommendations for possible percutaneous cholecystostomy no plans for GI procedures at this time. patient will need follow up imaging for her cirrhosis and ascites abx pain mgmt ppi Follow labs The patient was seen and examined at bedside and all new and available data was reviewed in the patients chart. I agree with the above findings, impression and plan. (Patient seen earlier today. Signature stamp does not reflect patient encounter time.). - Tramaine Miller MD Subjective Gastrointestinal/Abdominal: Reports: abdominal pain Objective Last 24 Hour Vital Signs Date Time Temp Pulse Resp B/P (MAP) Pulse Ox O2 Delivery O2 Flow Rate FiO2 06/24/18 09:00 Nasal Cannula 2.0 Nasal Cannula 2.0 06/24/18 08:00 97.6 101 18 129/85 (100) 97 06/24/18 04:00 97.7 99 17 124/83 (97) 97 06/23/18 23:54 97.7 104 18 129/85 (100) 98 06/23/18 21:00 Nasal Cannula 2.0 Nasal Cannula 2.0 06/23/18 20:00 97.2 104 18 123/83 (96) 98 06/23/18 16:00 97.5 108 16 126/88 (101) 98 06/23/18 12:00 97.1 102 16 129/87 (101) 99 Intake and Output 06/23/18 06/24/18 19:00 07:00 Intake Total 390 ml 300 ml Output Total 800 ml 500 ml Balance -410 ml -200 ml Intake Oral 390 ml 300 ml Output Urine Total 800 ml 500 ml # Bowel Movements 1 Laboratory Tests Test 06/24/18 05:41 White Blood Count 10.8 K/UL (4.8-10.8) Red Blood Count 3.69 M/UL (4.20-5.40) L Hemoglobin 11.1 G/DL (12.0-16.0) L Hematocrit 33.1 % (37.0-47.0) L Mean Corpuscular Volume 90 FL (80-99) Mean Corpuscular Hemoglobin 30.0 PG (27.0-31.0) Mean Corpuscular Hemoglobin Concent 33.4 G/DL (32.0-36.0) Red Cell Distribution Width 14.7 % (11.6-14.8) Platelet Count 770 K/UL (150-450) H Mean Platelet Volume 4.6 FL (6.5-10.1) L Neutrophils (%) (Auto) 83.8 % (45.0-75.0) H Lymphocytes (%) (Auto) 9.0 % (20.0-45.0) L Monocytes (%) (Auto) 5.8 % (1.0-10.0) Eosinophils (%) (Auto) 0.4 % (0.0-3.0) Basophils (%) (Auto) 1.0 % (0.0-2.0) Erythrocyte Sedimentation Rate 67 MM/HR (0-30) H Prothrombin Time 10.1 SEC (9.30-11.50) Prothromb Time International Ratio 1.0 (0.9-1.1) Activated Partial Thromboplast Time 28 SEC (23-33) Sodium Level 134 MMOL/L (136-145) L Potassium Level 4.0 MMOL/L (3.5-5.1) Chloride Level 98 MMOL/L (98-107) Carbon Dioxide Level 30 MMOL/L (21-32) Anion Gap 6 mmol/L (5-15) Blood Urea Nitrogen 15 mg/dL (7-18) Creatinine 0.5 MG/DL (0.55-1.30) L Estimat Glomerular Filtration Rate mL/min (>60) Glucose Level 132 MG/DL (74-106) H Osmolality 283 mOsm/kg (297-317) L Uric Acid 1.9 MG/DL (2.6-7.2) L Calcium Level 8.8 MG/DL (8.5-10.1) Phosphorus Level 2.9 MG/DL (2.5-4.9) Magnesium Level 2.1 MG/DL (1.8-2.4) Total Bilirubin 0.8 MG/DL (0.2-1.0) Aspartate Amino Transf (AST/SGOT) 97 U/L (15-37) H Alanine Aminotransferase (ALT/SGPT) 80 U/L (12-78) H Alkaline Phosphatase 1476 U/L (46-116) H C-Reactive Protein, Quantitative 4.8 mg/dL (0.00-0.90) H Total Protein 5.3 G/DL (6.4-8.2) L Albumin 1.6 G/DL (3.4-5.0) L Globulin 3.7 g/dL Albumin/Globulin Ratio 0.4 (1.0-2.7) L Amylase Level 39 U/L (25-115) Lipase 279 U/L (73-393) Height (Feet): 5 Height (Inches): 2.00 Weight (Pounds): 126 General Appearance: WD/WN, no apparent distress, alert, thin Cardiovascular: normal rate Respiratory/Chest: normal breath sounds, no respiratory distress Abdominal Exam: normal bowel sounds, non tender, soft, incision site Extremities: non-tender Ghanshyam Bryan NP Jun 24, 2018 11:01
--- NOTE | 2018-06-24 11:35 | Diagnostic Imaging Report ---
Clinical Indication: Abdominal pain, history of ovarian cancer, shortness of breath Technique: No oral contrast utilized, per emergency room physician request IV administration nonionic contrast. Venous phase spiral acquisition obtained through the abdomen and pelvis. Multiplanar reconstructions were generated. Total dose length product 622.06 mGycm. CTDIvol(s) 12.1 mGy. Dose reduction achieved using automated exposure control Comparison: No comparison CT scans. Reference made to ultrasound abdomen 06/17/2018, chest CT angiogram 06/17/2018, nuclear medicine hepatobiliary scan dated 06/22/2018 Findings: There is edema of the presacral fat. There is a small amount of ascites fluid. There is enhancement and thickening of the peritoneal surface surrounding most of the fluid. The appendix is not definitely demonstrated, but no findings to suggest acute appendicitis are evident. Ingested contrast has traversed the entirety of the small bowel and is seen within the cecum. Left upper quadrant small bowel loops are somewhat prominent in caliber. There is no evidence of small bowel wall thickening. No free intraperitoneal gas. Surgical clips are seen in the anterior upper abdomen. The distal esophagus, stomach, duodenum are unremarkable. The gallbladder demonstrates marked wall thickening with nodularity. Opacities within the gallbladder lumen presumably reflective calculi described on recent sonogram. The gallbladder is not significantly distended, however. The common bile duct and central intrahepatic ducts are normal in caliber, but there is rather striking enhancement of the biliary ductal hernandez. The liver appears unremarkable. The pancreas, spleen, adrenals, left kidney are unremarkable. The right kidney demonstrates a superficial subcentimeter low-attenuation upper pole lesion which is too small to characterize. No renal or ureteral calculi, hydronephrosis, or hydroureter demonstrated. The bladder contains a De Santiago catheter. There is considerable fluid within the bladder despite this, however. Gas within the bladder lumen presumably is related to the De Santiago catheterization. The uterus is absent, presumably postsurgically. Neither ovary is visualized. There is evidence of prior midline incision There is generalized mild edema of the bilateral flank subcutaneous fat. The included lung bases demonstrate large bilateral pleural effusions. There is likely complete atelectasis of both lower lobes, as well as atelectasis of portions of the right middle lobe and left lingula. The bones are unremarkable Impression: Small amount of ascites; per technologist notes malignant in etiology. Distribution and thickening/enhancement of the peritoneal surface as well as appearance on prior ultrasound suggests loculation. Peritoneal enhancement and thickening also raises concern for peritonitis. Correlate with laboratory findings Cholelithiasis and gallbladder wall thickening. Note that recent hepatobiliary nuclear scan is positive for acute cholecystitis. Given the nodular and irregular appearance of the gallbladder wall, possibly a gallbladder neoplasm should also be considered Unusual enhancement of the biliary ductal hernandez, raising concern for cholangitis. Correlate with clinical history and findings Mildly prominent left upper quadrant small bowel loops, of uncertain but doubtful significance, given transit of contrast into the colon Large bilateral pleural effusions with bilateral lower lobe compressive atelectasis. This is also described on recent chest CT angiogram Edema of the bilateral flank subcutaneous fat and presacral region Evidence of prior hysterectomy De Santiago catheter. Considerable fluid within the bladder despite De Santiago catheter. Evidence of prior hysterectomy Subcentimeter low-attenuation right renal lesion, too small to characterize, most likely benign simple cortical cysts. No further follow-up necessary The CT scanner at [facility] is accredited by the [employer] and the scans are performed using protocols designed to limit radiation exposure to as low as reasonably achievable to attain images of sufficient resolution adequate for diagnostic evaluation.
[2018-06-24 12:00] VITALS: BP 128/89
--- NOTE | 2018-06-24 13:03 | Surgery Progress Note ---
Surgery Progress Note Subjective Additional Comments still with abd pain. discussed care plan with daughter at bedside. Objective Last 24 Hour Vital Signs Date Time Temp Pulse Resp B/P (MAP) Pulse Ox O2 Delivery O2 Flow Rate FiO2 06/24/18 12:00 98.0 104 18 128/89 (102) 98 06/24/18 09:00 Nasal Cannula 2.0 Nasal Cannula 2.0 06/24/18 08:00 97.6 101 18 129/85 (100) 97 06/24/18 07:55 96 Nasal Cannula 2.0 28 06/24/18 07:55 Nasal Cannula 2.0 28 06/24/18 07:55 102 1 Nasal Cannula 2.0 28 06/24/18 04:00 97.7 99 17 124/83 (97) 97 06/23/18 23:54 97.7 104 18 129/85 (100) 98 06/23/18 21:00 Nasal Cannula 2.0 Nasal Cannula 2.0 06/23/18 20:00 97.2 104 18 123/83 (96) 98 06/23/18 16:00 97.5 108 16 126/88 (101) 98 I&O Intake and Output 06/23/18 06/24/18 19:00 07:00 Intake Total 390 ml 300 ml Output Total 800 ml 500 ml Balance -410 ml -200 ml Intake Oral 390 ml 300 ml Output Urine Total 800 ml 500 ml # Bowel Movements 1 Drains: none Cardiovascular: RSR Respiratory: clear Abdomen: soft, flat, tenderness, present bowel sounds Extremities: other Laboratory Tests Test 06/24/18 05:41 White Blood Count 10.8 K/UL (4.8-10.8) Red Blood Count 3.69 M/UL (4.20-5.40) L Hemoglobin 11.1 G/DL (12.0-16.0) L Hematocrit 33.1 % (37.0-47.0) L Mean Corpuscular Volume 90 FL (80-99) Mean Corpuscular Hemoglobin 30.0 PG (27.0-31.0) Mean Corpuscular Hemoglobin Concent 33.4 G/DL (32.0-36.0) Red Cell Distribution Width 14.7 % (11.6-14.8) Platelet Count 770 K/UL (150-450) H Mean Platelet Volume 4.6 FL (6.5-10.1) L Neutrophils (%) (Auto) 83.8 % (45.0-75.0) H Lymphocytes (%) (Auto) 9.0 % (20.0-45.0) L Monocytes (%) (Auto) 5.8 % (1.0-10.0) Eosinophils (%) (Auto) 0.4 % (0.0-3.0) Basophils (%) (Auto) 1.0 % (0.0-2.0) Erythrocyte Sedimentation Rate 67 MM/HR (0-30) H Prothrombin Time 10.1 SEC (9.30-11.50) Prothromb Time International Ratio 1.0 (0.9-1.1) Activated Partial Thromboplast Time 28 SEC (23-33) Sodium Level 134 MMOL/L (136-145) L Potassium Level 4.0 MMOL/L (3.5-5.1) Chloride Level 98 MMOL/L (98-107) Carbon Dioxide Level 30 MMOL/L (21-32) Anion Gap 6 mmol/L (5-15) Blood Urea Nitrogen 15 mg/dL (7-18) Creatinine 0.5 MG/DL (0.55-1.30) L Estimat Glomerular Filtration Rate mL/min (>60) Glucose Level 132 MG/DL (74-106) H Osmolality 283 mOsm/kg (297-317) L Uric Acid 1.9 MG/DL (2.6-7.2) L Calcium Level 8.8 MG/DL (8.5-10.1) Phosphorus Level 2.9 MG/DL (2.5-4.9) Magnesium Level 2.1 MG/DL (1.8-2.4) Total Bilirubin 0.8 MG/DL (0.2-1.0) Aspartate Amino Transf (AST/SGOT) 97 U/L (15-37) H Alanine Aminotransferase (ALT/SGPT) 80 U/L (12-78) H Alkaline Phosphatase 1476 U/L (46-116) H C-Reactive Protein, Quantitative 4.8 mg/dL (0.00-0.90) H Total Protein 5.3 G/DL (6.4-8.2) L Albumin 1.6 G/DL (3.4-5.0) L Globulin 3.7 g/dL Albumin/Globulin Ratio 0.4 (1.0-2.7) L Amylase Level 39 U/L (25-115) Lipase 279 U/L (73-393) Plan Problems: (1) Cholecystitis Assessment & Plan: acute cholecystitis ovarian cancer with mets complicated medical and surgical history Cholelithiasis and gallbladder wall thickening. Note that recent hepatobiliary nuclear scan is positive for acute cholecystitis. Given the nodular and irregular appearance of the gallbladder wall, possibly a gallbladder neoplasm should also be considered Unusual enhancement of the biliary ductal hernandez, raising concern for cholangitis. Correlate with clinical history and findings given above no surgery recommended. needs further work up IR guided cholecystotomy tube placement MRCP will follow with recs as results available thank you (2) Abdominal pain Rich Kiran Jun 24, 2018 13:03
--- NOTE | 2018-06-24 13:35 | Nephrology Progress Note ---
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 monitor labs low dose lasix k supplement Subjective ROS Limited/Unobtainable: No Constitutional: Reports: malaise Objective Objective Last 24 Hour Vital Signs Date Time Temp Pulse Resp B/P (MAP) Pulse Ox O2 Delivery O2 Flow Rate FiO2 06/24/18 12:00 98.0 104 18 128/89 (102) 98 06/24/18 09:00 Nasal Cannula 2.0 Nasal Cannula 2.0 06/24/18 08:00 97.6 101 18 129/85 (100) 97 06/24/18 07:55 96 Nasal Cannula 2.0 28 06/24/18 07:55 Nasal Cannula 2.0 28 06/24/18 07:55 102 1 Nasal Cannula 2.0 28 06/24/18 04:00 97.7 99 17 124/83 (97) 97 06/23/18 23:54 97.7 104 18 129/85 (100) 98 06/23/18 21:00 Nasal Cannula 2.0 Nasal Cannula 2.0 06/23/18 20:00 97.2 104 18 123/83 (96) 98 06/23/18 16:00 97.5 108 16 126/88 (101) 98 Intake and Output 06/23/18 06/24/18 19:00 07:00 Intake Total 390 ml 300 ml Output Total 800 ml 500 ml Balance -410 ml -200 ml Intake Oral 390 ml 300 ml Output Urine Total 800 ml 500 ml # Bowel Movements 1 Laboratory Tests 06/24/18 05:41: White Blood Count 10.8, Red Blood Count 3.69L, Hemoglobin 11.1L, Hematocrit 33.1L, Mean Corpuscular Volume 90, Mean Corpuscular Hemoglobin 30.0, Mean Corpuscular Hemoglobin Concent 33.4, Red Cell Distribution Width 14.7, Platelet Count 770H, Mean Platelet Volume 4.6L, Neutrophils (%) (Auto) 83.8H, Lymphocytes (%) (Auto) 9.0L, Monocytes (%) (Auto) 5.8, Eosinophils (%) (Auto) 0.4, Basophils (%) (Auto) 1.0, Erythrocyte Sedimentation Rate 67H, Prothrombin Time 10.1, Prothromb Time International Ratio 1.0, Activated Partial Thromboplast Time 28, Sodium Level 134L, Potassium Level 4.0, Chloride Level 98 , Carbon Dioxide Level 30, Anion Gap 6, Blood Urea Nitrogen 15, Creatinine 0.5L , Estimat Glomerular Filtration Rate , Glucose Level 132H, Osmolality 283L, Uric Acid 1.9L, Calcium Level 8.8, Phosphorus Level 2.9, Magnesium Level 2.1, Total Bilirubin 0.8, Aspartate Amino Transf (AST/SGOT) 97H, Alanine Aminotransferase (ALT/SGPT) 80H, Alkaline Phosphatase 1476H, C-Reactive Protein , Quantitative 4.8H, Total Protein 5.3L, Albumin 1.6L, Globulin 3.7, Albumin/ Globulin Ratio 0.4L, Amylase Level 39, Lipase 279 Height (Feet): 5 Height (Inches): 2.00 Weight (Pounds): 126 General Appearance: no apparent distress Cardiovascular: tachycardia Respiratory/Chest: decreased breath sounds Abdomen: distended Jae Walker MD Jun 24, 2018 13:35
--- NOTE | 2018-06-24 13:50 | NUR ---
NURSE NOTES: Patient off the unit for MRI of ABD.
--- NOTE | 2018-06-24 14:08 | NUR ---
*-* INSURANCE *-* ALL CLINICALS,REVIEWS AND INTERQUAL FAXED TO: [employer] AUTH#: BAYLEE NCM: PND F#: [phone] PLEASE FAX CLINICALS TO ABOVE #
--- NOTE | 2018-06-24 14:30 | NUR ---
NURSE NOTES: Patient came back from MRI in stable condition.
--- NOTE | 2018-06-24 14:40 | NUR ---
NURSE NOTES: US guided thoracentesis was done. 700 ml output. Patient in stable condition.
[2018-06-24] MEDS ORDERED: NaCl 3% 500ml 250 ML IV SCH (15:00)
--- NOTE | 2018-06-24 15:05 | Pulmonology Progress Note ---
Assessment/Plan Assessment/Plan Problem List: 1. Shortness of breath 2. Large bilateral pleural effusions -R thoracentesis 800 cc 06/18 3. ovarian cancer s/p resection with likely malignant ascites and presumed malignant effusions 4. Protein calorie malnutrition 5. Abdominal pain - acute cholecysitis Plan: -f/u MRCP results -may need cholecystostomy tube -repeat thoracentesis for now but will move forward with pleurx catheter placement once issues with gallbladder settled -f/u cytology of R thoracentesis -monitor volumes -pain control Subjective ROS Limited/Unobtainable: Yes Interval Events: Concern for cholecystitis and s/p MRCP. CXR with b/l effusions Allergies: Coded Allergies: No Known Allergies (Unverified , 06/17/18) Objective Last 24 Hour Vital Signs Date Time Temp Pulse Resp B/P (MAP) Pulse Ox O2 Delivery O2 Flow Rate FiO2 06/24/18 12:00 98.0 104 18 128/89 (102) 98 06/24/18 09:00 Nasal Cannula 2.0 Nasal Cannula 2.0 06/24/18 08:00 97.6 101 18 129/85 (100) 97 06/24/18 07:55 96 Nasal Cannula 2.0 28 06/24/18 07:55 Nasal Cannula 2.0 28 06/24/18 07:55 102 1 Nasal Cannula 2.0 28 06/24/18 04:00 97.7 99 17 124/83 (97) 97 06/23/18 23:54 97.7 104 18 129/85 (100) 98 06/23/18 21:00 Nasal Cannula 2.0 Nasal Cannula 2.0 06/23/18 20:00 97.2 104 18 123/83 (96) 98 06/23/18 16:00 97.5 108 16 126/88 (101) 98 Intake and Output 06/23/18 06/24/18 18:59 06:59 Intake Total 390 ml 300 ml Output Total 800 ml 500 ml Balance -410 ml -200 ml Intake Oral 390 ml 300 ml Output Urine Total 800 ml 500 ml # Bowel Movements 1 General Appearance: no acute distress HEENT: mucous membranes moist Respiratory/Chest: decreased breath sounds Cardiovascular: regular rhythm Abdomen: distended, tender Extremities: no edema Neurologic/Psychiatric: responsive Laboratory Tests 06/24/18 05:41: White Blood Count 10.8, Red Blood Count 3.69L, Hemoglobin 11.1L, Hematocrit 33.1L, Mean Corpuscular Volume 90, Mean Corpuscular Hemoglobin 30.0, Mean Corpuscular Hemoglobin Concent 33.4, Red Cell Distribution Width 14.7, Platelet Count 770H, Mean Platelet Volume 4.6L, Neutrophils (%) (Auto) 83.8H, Lymphocytes (%) (Auto) 9.0L, Monocytes (%) (Auto) 5.8, Eosinophils (%) (Auto) 0.4, Basophils (%) (Auto) 1.0, Erythrocyte Sedimentation Rate 67H, Prothrombin Time 10.1, Prothromb Time International Ratio 1.0, Activated Partial Thromboplast Time 28, Sodium Level 134L, Potassium Level 4.0, Chloride Level 98 , Carbon Dioxide Level 30, Anion Gap 6, Blood Urea Nitrogen 15, Creatinine 0.5L , Estimat Glomerular Filtration Rate , Glucose Level 132H, Osmolality 283L, Uric Acid 1.9L, Calcium Level 8.8, Phosphorus Level 2.9, Magnesium Level 2.1, Total Bilirubin 0.8, Aspartate Amino Transf (AST/SGOT) 97H, Alanine Aminotransferase (ALT/SGPT) 80H, Alkaline Phosphatase 1476H, C-Reactive Protein , Quantitative 4.8H, Total Protein 5.3L, Albumin 1.6L, Globulin 3.7, Albumin/ Globulin Ratio 0.4L, Amylase Level 39, Lipase 279 Current Medications Medications (Trade) Dose Ordered Sig/Susana Route PRN Reason Start Time Stop Time Status Last Admin Dose Admin Acetaminophen (Tylenol) 500 mg Q4H PRN ORAL Mild Pain/Temp > 100.5 06/23/18 11:30 07/17/18 11:29 06/23/18 16:06 Bisacodyl (Dulcolax) 10 mg DAILY ORAL 06/24/18 09:00 07/20/18 08:59 06/24/18 10:49 Diatrizoate Meglum/ Diatrizoate Sod (Gastrografin) 30 ml NOW PRN ORAL Radiology Procedure 06/23/18 18:45 06/24/18 23:59 Docusate Sodium (Colace) 100 mg TWICE A DAY ORAL 06/23/18 18:00 07/19/18 18:59 06/24/18 10:48 Fluconazole (Diflucan) 100 mg DAILY ORAL 06/24/18 09:00 06/27/18 11:59 06/24/18 10:48 Furosemide (Lasix) 20 mg Q8HR IV 06/24/18 14:00 07/18/18 08:59 Heparin Sodium (Porcine) (Heparin 5000 units/ml) 5,000 units EVERY 12 HOURS SUBQ 06/23/18 21:00 07/21/18 08:59 06/24/18 10:50 Iopamidol (Isovue-300 100ml) 100 ml NOW PRN INJ Radiology Procedure 06/23/18 18:45 06/24/18 18:44 Magnesium Hydroxide (Mom) 30 ml Q4H PRN ORAL Constipation 06/23/18 14:30 07/19/18 18:29 Morphine Sulfate (Morphine Sulfate) 2 mg Q4H PRN IVP Moderate Pain (Pain Scale 4-6) 06/23/18 13:00 06/25/18 16:46 Morphine Sulfate (Morphine Sulfate) 4 mg Q4H PRN IVP Severe Pain (Pain Scale 7-10) 06/23/18 13:00 06/25/18 16:46 Pantoprazole (Protonix) 40 mg DAILY ORAL 06/24/18 09:00 07/18/18 08:59 06/24/18 10:49 Piperacillin Sod/ Tazobactam Sod 3.375 gm/Sodium Chloride 110 ml @ 27.5 mls/hr EVERY 8 HOURS IVPB 06/23/18 14:00 06/28/18 13:59 06/24/18 05:59 Potassium Chloride (K-Dur) 40 meq TWICE A DAY ORAL 06/23/18 18:00 07/18/18 17:59 06/24/18 10:48 Sodium Chloride 250 ml @ 30 mls/hr ONCE IV 06/24/18 15:00 06/24/18 23:59 Zolpidem Tartrate (Ambien) 5 mg HSPRN PRN ORAL Insomnia 06/23/18 12:00 06/28/18 11:59 06/23/18 20:47 Phillip Patel MD Jun 24, 2018 15:05
--- NOTE | 2018-06-24 15:55 | Pre-Procedure Note/Attestation ---
Pre-Procedure Note/Attestation Complete Prior to Procedure Planned Procedure: left Procedure Narrative: Thoracentesis Indications for Procedure Pre-Operative Diagnosis: Pleural effusion Attestation I attest that I discussed the nature of the procedure; its benefits; risks and complications; and alternatives (and the risks and benefits of such alternatives ), prior to the procedure, with the patient (or the patient's legal outside sales representative). I attest that, if there was a reasonable possibility of needing a blood transfusion, the patient (or the patient's legal outside sales representative) was given the [facility] standardized written summary, pursuant to the Marek Yousuf Blood Safety Act ([place] Health and Safety Code # 1645, as amended). I attest that I re-evaluated the patient just prior to the surgery and that there has been no change in the patient's H&P, except as documented below: Discussed by phone with pt's. daughter Jazmine Marti at 1547 Richard Fitzgerald MD Jun 24, 2018 15:55
[2018-06-24 16:00] VITALS: BP 132/91
--- NOTE | 2018-06-24 16:12 | Brief Operative Note ---
Immediate Post Operative Note Operative Note Pre-op Diagnosis: Pleural effusion Procedure: L thoracentesis Post-op Diagnosis: same as pre-op Findings: consistent w/pre-op dx studies Surgeon: Nayla FITZGERALD Anesthesia: local Specimen: yes - fluid obtained for lab Complications: none Fluids: none Implant(s) used?: No Richard Fitzgerald MD Jun 24, 2018 16:12
--- NOTE | 2018-06-24 16:27 | Diagnostic Imaging Report ---
Indication: Abdominal pain, evidence of acute cholecystitis and cholelithiasis on earlier imaging Technique: Coronal and axial single shot fast spin-echo breath-hold, axial T2 FRFSE, 2-D thick slab MRCP, AXIAL 2-D FIESTA fat saturated, water weighted axial LAVA FLEX, revealed 3-D MRCP images were obtained of the abdomen. MIP reconstructions were generated of the bile ducts Comparison: Reference made to abdomen pelvis CT of earlier the same day, hepatobiliary scan of 06/22/2018, abdomen ultrasound 06/17/2018 Findings: Gallbladder contains filling defects consistent with gallstones. There is suggestion of at least mild edema of the gallbladder wall. No definite biliary ductal filling defects are demonstrated. No biliary ductal dilatation. The liver, pancreas, spleen, adrenals are unremarkable. The kidneys demonstrate small cysts bilaterally. Intraperitoneal fluid is again demonstrated as previously, quite likely loculated. There is bilateral pleural fluid and bilateral basilar pulmonary parenchymal atelectatic changes Impression: Cholelithiasis, also previously described. Gallbladder wall edema, better appreciated on the earlier studies No biliary ductal dilatation or intraductal filling defects. Note that recent hepatobiliary scan demonstrates common bile duct patency. Note that previous CT describes common bile duct wall enhancement suggestive of cholangitis. Current noncontrast study does not add any specificity to that diagnosis Ascites fluid, likely loculated, also previously described Bilateral pleural effusions with compressive atelectatic changes of both lower lobes Incidental finding bilateral renal cysts
--- NOTE | 2018-06-24 16:59 | Diagnostic Imaging Report ---
Indications: Pleural effusion Technique: Ultrasound used to localize optimal puncture site. Sterile prepping and draping chest. Local anesthesia with 1% lidocaine. Under real-time ultrasound guidance, puncture pleural space using thoracentesis needle. Stylet removed. Catheter placed to vacuum bottle suction. Total 1000 milliliters of cloudy yellow fluid aspirated. Patient tolerated procedure well, without immediate complication. Findings: Followup sonography demonstrates complete resolution of pleural fluid. Impression: Successful ultrasound-guided thoracentesis, yielding 1000 milliliters of fluid
--- NOTE | 2018-06-24 17:01 | Diagnostic Imaging Report ---
Indication: Post thoracentesis Technique: One view of the chest Comparison: 06/23/2018 Findings: Interim near complete resolution of previously demonstrated left pleural effusion, with only minimal residual costophrenic angle blunting. No pneumothorax. There is some atelectasis in the retrocardiac region, left lung is otherwise largely cleared. Right basilar opacity likely reflects right-sided pleural effusion. Heart size is normal Impression: Nearly resolved left pleural effusion, status post thoracentesis. No radiographically evident complication Stable right basilar opacity, likely combination of pleural fluid and parenchymal consolidation
--- NOTE | 2018-06-24 17:26 | General Progress Note ---
Assessment/Plan Assessment/Plan Assessment/Recommendations # Thrombocytosis - likely related to reactive process, ovarian cancer potential hx of mets --> Continue to monitor for improvement --> plt trend: 860-->863-->917-->937 --> Trend CBC as needed --> Jak2 has been ordered --> Smear reviewed and no abnormalities noted. *Under manual differential # ovarian cancer s/p resection with likely malignant ascites and presumed malignant effusions --> review outside imaging and treatments patient has received --> outside labs and pathology to be reviewed --> defer to outpatient oncologist for further care, patient requires followup, has followup with [facility] [place] # Anemia of chronic disease (or of iron deficiency) due to underlying chronic medical issues, multifactorial --> Anemia workup has been reviewed, --> No evidence of hemolysis is noted, peripheral smear has been reviewed. --> Hgb goal >7. Transfuse prn. --> Epogen or iron at this time is not particularly indicated --> Medications have been reviewed # Leukocytosis. Likely related to underlying infection versus reactive process. --> Peripheral has been ordered, no blasts are noted --> Medications have been reviewed --> Imaging has been reviewed --> Blood cultures and urine cultures prn --> has been started on abx, empiric treatment # Shortness of breath # Large bilateral pleural effusions --> thoracentesis eval with pleural fluid studies --> 06/18: Successful ultrasound-guided right thoracentesis, yielding 0.8 liters of fluid The timing of this note does not necessarily reflect the time of the patient was seen. Greatly appreciate consultation! Subjective Constitutional: Denies: no symptoms, chills, diaphoresis, fever, malaise, weakness, other HEENT: Denies: no symptoms, eye pain, blurred vision, tearing, double vision, ear pain, ear discharge, nose pain, nose congestion, throat pain, throat swelling, mouth pain, mouth swelling, other Cardiovascular: Denies: no symptoms, chest pain, edema, irregular heart rate, lightheadedness, palpitations, syncope, other Respiratory: Denies: no symptoms, cough, orthopnea, shortness of breath, SOB with excertion, SOB at rest, sputum, stridor, wheezing, other Gastrointestinal/Abdominal: Denies: no symptoms, abdomen distended, abdominal pain, black stools, tarry stools, blood in stool, constipated, diarrhea, difficulty swallowing, nausea, poor appetite, poor fluid intake, rectal bleeding , vomiting, other Genitourinary: Denies: no symptoms, burning, discharge, frequency, flank pain, hematuria, incontinence, pain, urgency, other Neurologic/Psychiatric: Denies: no symptoms, anxiety, depressed, emotional problems, headache, numbness, paresthesia, pre-existing deficit, seizure, tingling, tremors, weakness, other Endocrine: Denies: no symptoms, excessive sweating, flushing, intolerance to cold, intolerance to heat, increased hunger, increased thirst, increased urine, unexplained weight gain, unexplained weight loss, other Hematologic/Lymphatic: Denies: no symptoms, anemia, easy bleeding, easy bruising, other Allergies: Coded Allergies: No Known Allergies (Unverified , 06/17/18) Subjective 06/18: thoracentesis eval with pleural fluid studies today, plt remains elevated. 06/19: seen by bedside, no acute distress, no signs of pain. No pneumothorax is reported on CXR 06/22: Patient is is resting in bed with family at bed side. Patient has pain which is at a moderate level and tolerated on the Morphine. HIDA scan reveals, suspicious for acute cholecystitis. plt continue to be elevated and trending up. 06/23: seen by bedside, awake, comfortable, no acute distress, no events 06/24: HIDA reviewed >> suggestive of acute cholecystitis, no plans for GI procedures at this time, patient will need follow up imaging for her cirrhosis and ascites, continues to have abdominal pain Objective Last 24 Hour Vital Signs Date Time Temp Pulse Resp B/P (MAP) Pulse Ox O2 Delivery O2 Flow Rate FiO2 06/24/18 12:00 98.0 104 18 128/89 (102) 98 06/24/18 09:00 Nasal Cannula 2.0 Nasal Cannula 2.0 06/24/18 08:00 97.6 101 18 129/85 (100) 97 06/24/18 07:55 96 Nasal Cannula 2.0 28 06/24/18 07:55 Nasal Cannula 2.0 28 06/24/18 07:55 102 1 Nasal Cannula 2.0 28 06/24/18 04:00 97.7 99 17 124/83 (97) 97 06/23/18 23:54 97.7 104 18 129/85 (100) 98 06/23/18 21:00 Nasal Cannula 2.0 Nasal Cannula 2.0 06/23/18 20:00 97.2 104 18 123/83 (96) 98 Intake and Output 06/23/18 06/24/18 18:59 06:59 Intake Total 390 ml 300 ml Output Total 800 ml 500 ml Balance -410 ml -200 ml Intake Oral 390 ml 300 ml Output Urine Total 800 ml 500 ml # Bowel Movements 1 Laboratory Tests 06/24/18 05:41: White Blood Count 10.8, Red Blood Count 3.69L, Hemoglobin 11.1L, Hematocrit 33.1L, Mean Corpuscular Volume 90, Mean Corpuscular Hemoglobin 30.0, Mean Corpuscular Hemoglobin Concent 33.4, Red Cell Distribution Width 14.7, Platelet Count 770H, Mean Platelet Volume 4.6L, Neutrophils (%) (Auto) 83.8H, Lymphocytes (%) (Auto) 9.0L, Monocytes (%) (Auto) 5.8, Eosinophils (%) (Auto) 0.4, Basophils (%) (Auto) 1.0, Erythrocyte Sedimentation Rate 67H, Prothrombin Time 10.1, Prothromb Time International Ratio 1.0, Activated Partial Thromboplast Time 28, Sodium Level 134L, Potassium Level 4.0, Chloride Level 98 , Carbon Dioxide Level 30, Anion Gap 6, Blood Urea Nitrogen 15, Creatinine 0.5L , Estimat Glomerular Filtration Rate , Glucose Level 132H, Osmolality 283L, Uric Acid 1.9L, Calcium Level 8.8, Phosphorus Level 2.9, Magnesium Level 2.1, Total Bilirubin 0.8, Aspartate Amino Transf (AST/SGOT) 97H, Alanine Aminotransferase (ALT/SGPT) 80H, Alkaline Phosphatase 1476H, C-Reactive Protein , Quantitative 4.8H, Total Protein 5.3L, Albumin 1.6L, Globulin 3.7, Albumin/ Globulin Ratio 0.4L, Amylase Level 39, Lipase 279 Height (Feet): 5 Height (Inches): 2.00 Weight (Pounds): 126 Objective Physical Exam General Appearance: no apparent distress, alert HEENT: normocephalic, atraumatic Neck: supple Respiratory/Chest: decreased breath sounds Cardiovascular/Chest: normal rate, regular rhythm Abdomen: non tender, soft Extremities: no edema Keegan Flores MD Jun 24, 2018 17:26
--- NOTE | 2018-06-24 19:30 | NUR ---
HAND-OFF: Report given to KOFI Calabrese.
[2018-06-24 20:00] VITALS: BP 129/88
--- NOTE | 2018-06-24 20:15 | NUR ---
NURSE NOTES: Received the consent for CT guide drain placement cath. from the patient.
--- NOTE | 2018-06-24 21:18 | General Progress Note ---
Assessment/Plan Problem List: (1) Ovarian carcinoma ICD Codes: C56.9 - Malignant neoplasm of unspecified ovary SNOMED: 237768372 Qualifiers: Qualified Codes: C56.9 - Malignant neoplasm of unspecified ovary (2) Respiratory distress ICD Codes: R06.03 - Acute respiratory distress SNOMED: 716022346 (3) Pleural effusion ICD Codes: J90 - Pleural effusion, not elsewhere classified SNOMED: 89503098 (4) Hypoalbuminemia ICD Codes: E88.09 - Other disorders of plasma-protein metabolism, not elsewhere classified SNOMED: 286430648 Status: progressing Assessment/Plan acute cholycystitis discussed w dr ann-marie carrillo is also consulted for abdominal pain insomnia still not stable for dc pleural effusion s/p resent ovarian removal and hysterectomy Subjective Gastrointestinal/Abdominal: Reports: abdominal pain Allergies: Coded Allergies: No Known Allergies (Unverified , 06/17/18) Subjective sob Objective Last 24 Hour Vital Signs Date Time Temp Pulse Resp B/P (MAP) Pulse Ox O2 Delivery O2 Flow Rate FiO2 06/24/18 20:00 97.7 106 20 129/88 (102) 98 06/24/18 16:00 98.1 101 18 132/91 (105) 98 06/24/18 12:00 98.0 104 18 128/89 (102) 98 06/24/18 09:00 Nasal Cannula 2.0 Nasal Cannula 2.0 06/24/18 08:00 97.6 101 18 129/85 (100) 97 06/24/18 07:55 96 Nasal Cannula 2.0 28 06/24/18 07:55 Nasal Cannula 2.0 28 06/24/18 07:55 102 1 Nasal Cannula 2.0 28 06/24/18 04:00 97.7 99 17 124/83 (97) 97 06/23/18 23:54 97.7 104 18 129/85 (100) 98 Intake and Output 06/23/18 06/24/18 18:59 06:59 Intake Total 390 ml 300 ml Output Total 800 ml 500 ml Balance -410 ml -200 ml Intake Oral 390 ml 300 ml Output Urine Total 800 ml 500 ml # Bowel Movements 1 Laboratory Tests 06/24/18 05:41: White Blood Count 10.8, Red Blood Count 3.69L, Hemoglobin 11.1L, Hematocrit 33.1L, Mean Corpuscular Volume 90, Mean Corpuscular Hemoglobin 30.0, Mean Corpuscular Hemoglobin Concent 33.4, Red Cell Distribution Width 14.7, Platelet Count 770H, Mean Platelet Volume 4.6L, Neutrophils (%) (Auto) 83.8H, Lymphocytes (%) (Auto) 9.0L, Monocytes (%) (Auto) 5.8, Eosinophils (%) (Auto) 0.4, Basophils (%) (Auto) 1.0, Erythrocyte Sedimentation Rate 67H, Prothrombin Time 10.1, Prothromb Time International Ratio 1.0, Activated Partial Thromboplast Time 28, Sodium Level 134L, Potassium Level 4.0, Chloride Level 98 , Carbon Dioxide Level 30, Anion Gap 6, Blood Urea Nitrogen 15, Creatinine 0.5L , Estimat Glomerular Filtration Rate , Glucose Level 132H, Osmolality 283L, Uric Acid 1.9L, Calcium Level 8.8, Phosphorus Level 2.9, Magnesium Level 2.1, Total Bilirubin 0.8, Aspartate Amino Transf (AST/SGOT) 97H, Alanine Aminotransferase (ALT/SGPT) 80H, Alkaline Phosphatase 1476H, C-Reactive Protein , Quantitative 4.8H, Total Protein 5.3L, Albumin 1.6L, Globulin 3.7, Albumin/ Globulin Ratio 0.4L, Amylase Level 39, Lipase 279 Height (Feet): 5 Height (Inches): 2.00 Weight (Pounds): 126 Cardiovascular: regular rhythm Abdomen: tender Vane Stephenson MD Jun 24, 2018 21:18
[2018-06-24] MEDS: Zolpidem 5mg tab ORAL PRN (21:30)
--- NOTE | 2018-06-24 23:38 | Cardiology Progress Note ---
Assessment/Plan Assessment/Plan 1. Sinus tachycardia, likely due to intravascular volume depletion due to low oncotic pressure, consider albumin administration. Other etiologies include sepsis and increased tumor burden. 2. B/L pleural effusion, s/p thoracentesis 3. Metastatic ovarian cancer 4. FTT 5. Respiratory failure. 6. Encephalopathy 7. Moderate pulmonary HTN. Subjective Subjective No cardiac events is reported. Objective Last 24 Hour Vital Signs Date Time Temp Pulse Resp B/P (MAP) Pulse Ox O2 Delivery O2 Flow Rate FiO2 06/24/18 20:00 97.7 106 20 129/88 (102) 98 06/24/18 16:00 98.1 101 18 132/91 (105) 98 06/24/18 12:00 98.0 104 18 128/89 (102) 98 06/24/18 09:00 Nasal Cannula 2.0 Nasal Cannula 2.0 06/24/18 08:00 97.6 101 18 129/85 (100) 97 06/24/18 07:55 96 Nasal Cannula 2.0 28 06/24/18 07:55 Nasal Cannula 2.0 28 06/24/18 07:55 102 1 Nasal Cannula 2.0 28 06/24/18 04:00 97.7 99 17 124/83 (97) 97 06/23/18 23:54 97.7 104 18 129/85 (100) 98 Intake and Output 06/23/18 06/24/18 19:00 07:00 Intake Total 390 ml 300 ml Output Total 800 ml 500 ml Balance -410 ml -200 ml Intake Oral 390 ml 300 ml Output Urine Total 800 ml 500 ml # Bowel Movements 1 2D Echo: LVEF 65%, Grade I LVDD, pleural effusion, RVSP 48 mmHg Laboratory Tests Test 06/24/18 05:41 White Blood Count 10.8 K/UL (4.8-10.8) Red Blood Count 3.69 M/UL (4.20-5.40) L Hemoglobin 11.1 G/DL (12.0-16.0) L Hematocrit 33.1 % (37.0-47.0) L Mean Corpuscular Volume 90 FL (80-99) Mean Corpuscular Hemoglobin 30.0 PG (27.0-31.0) Mean Corpuscular Hemoglobin Concent 33.4 G/DL (32.0-36.0) Red Cell Distribution Width 14.7 % (11.6-14.8) Platelet Count 770 K/UL (150-450) H Mean Platelet Volume 4.6 FL (6.5-10.1) L Neutrophils (%) (Auto) 83.8 % (45.0-75.0) H Lymphocytes (%) (Auto) 9.0 % (20.0-45.0) L Monocytes (%) (Auto) 5.8 % (1.0-10.0) Eosinophils (%) (Auto) 0.4 % (0.0-3.0) Basophils (%) (Auto) 1.0 % (0.0-2.0) Erythrocyte Sedimentation Rate 67 MM/HR (0-30) H Prothrombin Time 10.1 SEC (9.30-11.50) Prothromb Time International Ratio 1.0 (0.9-1.1) Activated Partial Thromboplast Time 28 SEC (23-33) Sodium Level 134 MMOL/L (136-145) L Potassium Level 4.0 MMOL/L (3.5-5.1) Chloride Level 98 MMOL/L (98-107) Carbon Dioxide Level 30 MMOL/L (21-32) Anion Gap 6 mmol/L (5-15) Blood Urea Nitrogen 15 mg/dL (7-18) Creatinine 0.5 MG/DL (0.55-1.30) L Estimat Glomerular Filtration Rate mL/min (>60) Glucose Level 132 MG/DL (74-106) H Osmolality 283 mOsm/kg (297-317) L Uric Acid 1.9 MG/DL (2.6-7.2) L Calcium Level 8.8 MG/DL (8.5-10.1) Phosphorus Level 2.9 MG/DL (2.5-4.9) Magnesium Level 2.1 MG/DL (1.8-2.4) Total Bilirubin 0.8 MG/DL (0.2-1.0) Aspartate Amino Transf (AST/SGOT) 97 U/L (15-37) H Alanine Aminotransferase (ALT/SGPT) 80 U/L (12-78) H Alkaline Phosphatase 1476 U/L (46-116) H C-Reactive Protein, Quantitative 4.8 mg/dL (0.00-0.90) H Total Protein 5.3 G/DL (6.4-8.2) L Albumin 1.6 G/DL (3.4-5.0) L Globulin 3.7 g/dL Albumin/Globulin Ratio 0.4 (1.0-2.7) L Amylase Level 39 U/L (25-115) Lipase 279 U/L (73-393) Objective HEENT: Atraumatic and normocephalic. Anicteric. Pupils are equal, round, and reactive to light and accommodation. Extraocular muscles intact. NECK: JVP less than 5 cm. No carotid bruit. Carotid upstrokes 2+ bilaterally. CARDIOVASCULAR: Normal S1, S2. Regular rate and rhythm. No murmurs, gallops, or rubs. LUNGS: Diminished breath sounds in both bases. ABDOMEN: Soft, nontender, and nondistended. No hepatosplenomegaly. Positive bowel sounds. An abdominal incision site is clean. EXTREMITIES: No evidence of edema, clubbing, or cyanosis. Andrew Man MD Jun 24, 2018 23:38
[2018-06-25] VITALS (19 sets, daily range): BP systolic 115–139; BP diastolic 75–93
[2018-06-25 06:42] LABS: EOSINOPHILS % (AUTO) 0.1 % (0.0-3.0); HEMATOCRIT 34.5 % (37.0-47.0); HEMOGLOBIN 11.1 G/DL (12.0-16.0); MEAN CORPUSCULAR VOLUME 91 FL (80-99); MONOCYTES % (AUTO) 7.9 % (1.0-10.0); PLATELET COUNT 714 K/UL (150-450); RED BLOOD COUNT 3.81 M/UL (4.20-5.40); RED CELL DISTRIBUTION WIDTH 14.7 % (11.6-14.8); WHITE BLOOD COUNT 9.4 K/UL (4.8-10.8)
[2018-06-25] MEDS: Piperacillin/Tazobactam 3.375 GM in NS 110 ML IVPB SCH ×3 (06:44→21:38)
[2018-06-25 07:24] LABS: ALANINE AMINOTRANSFERASE 85 U/L (12-78); ALBUMIN 1.7 G/DL (3.4-5.0); ALBUMIN/GLOBULIN RATIO 0.4 (1.0-2.7); ALKALINE PHOSPHATASE 1491 U/L (46-116); ANION GAP 6 mmol/L (5-15); ASPARTATE AMINO TRANSFERASE 100 U/L (15-37); BILIRUBIN,TOTAL 0.8 MG/DL (0.2-1.0); BLOOD UREA NITROGEN 18 mg/dL (7-18); CARBON DIOXIDE 30 MMOL/L (21-32); CHLORIDE 103 MMOL/L (98-107); CREATININE 0.6 MG/DL (0.55-1.30); POTASSIUM 3.9 MMOL/L (3.5-5.1); SODIUM 139 MMOL/L (136-145)
--- NOTE | 2018-06-25 07:31 | NUR ---
HAND-OFF: Report given to KOFI Humphries.
--- NOTE | 2018-06-25 08:00 | NUR ---
NURSE NOTES: Received report from Ashley KIRBY. During rounds patient is asleep, no s/s acute distress noted. On 2L NC. RR even and unlabored. SCD's on. Patient scheduled for procedure today, consent is signed. Per nightshift report, NPO maintained. Fall precautions maintained. Side rails upx3, bed low and locked, call light in reach, bed alarm armed. Will continue to monitor.
--- NOTE | 2018-06-25 08:41 | NUR ---
NURSE NOTES: Spoke with Marciano RN in GI. Marciano reports ok to give patient morning meds Diflucan and Protonix with small sips of water. Reports patient may need new consent signed, reports he will follow up with radiologist and enter order for consent if indicated and ordered. Will continue to monitor.
[2018-06-25] MEDS: Docusate 100mg cap ORAL SCH ×2 (09:00→18:21)
[2018-06-25] MEDS: Heparin 5000 units/ml inj SUBQ SCH ×2 (09:00→21:42)
[2018-06-25] MEDS: Bisacodyl EC 5mg tab ORAL SCH (09:00)
--- NOTE | 2018-06-25 09:02 | General Progress Note ---
Assessment/Plan Assessment/Plan (1) Intractable pain (2) Ovarian cancer Patient to be continued on Morphine. Dr. Breaux and he concurred. Subjective Date patient seen: Jun 25, 2018 Time patient seen: 08:15 - am Allergies: Coded Allergies: No Known Allergies (Unverified , 06/17/18) Subjective Constitutional: Reports: weakness HEENT: Reports: no symptoms Respiratory: Reports: no symptoms Gastrointestinal/Abdominal: Reports: abdominal pain Genitourinary: Reports: no symptoms Neurologic/Psychiatric: Reports: weakness Endocrine: Reports: no symptoms Hematologic/Lymphatic: Reports: no symptoms Subjective Patient is in bed and pain is stable on the Morphine as needed. Objective Last 24 Hour Vital Signs Date Time Temp Pulse Resp B/P (MAP) Pulse Ox O2 Delivery O2 Flow Rate FiO2 06/25/18 08:00 98.0 97 18 131/91 (104) 98 06/25/18 04:00 98.6 104 20 127/86 (100) 98 06/25/18 00:00 98.5 112 20 121/85 (97) 98 06/24/18 21:00 Nasal Cannula 2.0 Nasal Cannula 2.0 06/24/18 20:00 97.7 106 20 129/88 (102) 98 06/24/18 16:00 98.1 101 18 132/91 (105) 98 06/24/18 12:00 98.0 104 18 128/89 (102) 98 Intake and Output 06/24/18 06/25/18 19:00 07:00 Intake Total 400 ml Output Total 1500 ml 1200 ml Balance -1100 ml -1200 ml Intake Oral 400 ml Output Urine Total 1500 ml 1200 ml Laboratory Tests 06/25/18 05:00: White Blood Count 9.4, Red Blood Count 3.81L, Hemoglobin 11.1L, Hematocrit 34.5L , Mean Corpuscular Volume 91, Mean Corpuscular Hemoglobin 29.2, Mean Corpuscular Hemoglobin Concent 32.2, Red Cell Distribution Width 14.7, Platelet Count 714H, Mean Platelet Volume 4.7L, Neutrophils (%) (Auto) 81.0H, Lymphocytes (%) (Auto) 10.0L, Monocytes (%) (Auto) 7.9, Eosinophils (%) (Auto) 0.1, Basophils (%) (Auto) 1.0, Sodium Level 139, Potassium Level 3.9, Chloride Level 103, Carbon Dioxide Level 30, Anion Gap 6, Blood Urea Nitrogen 18, Creatinine 0.6, Estimat Glomerular Filtration Rate , Glucose Level 142H, Calcium Level 9.0, Total Bilirubin 0.8, Aspartate Amino Transf (AST/SGOT) 100H, Alanine Aminotransferase (ALT/SGPT) 85H, Alkaline Phosphatase 1491H, Total Protein 5.5L, Albumin 1.7L, Globulin 3.8, Albumin/Globulin Ratio 0.4L Height (Feet): 5 Height (Inches): 2.00 Weight (Pounds): 126 Objective General Appearance: no apparent distress, alert EENT: PERRL/EOMI Neck: normal alignment, supple Cardiovascular: normal rate, regular rhythm Respiratory/Chest: decreased breath sounds Abdomen: tender Extremities: non-tender Neurologic: alert, responsive Skin: normal pigmentation Tenzin Foster Jun 25, 2018 09:02
[2018-06-25] MEDS ORDERED: Morphine Sulfate 4mg/ml Inj (IV USE ONLY) IVP PRN (09:19)
[2018-06-25] MEDS ORDERED: Morphine Sulfate 2mg/ml Inj(IV/IM USE ONLY) IVP PRN (09:19)
[2018-06-25] MEDS: Fluconazole 100mg tab ORAL SCH (09:23)
--- NOTE | 2018-06-25 10:33 | GI Progress Note ---
Assessment/Plan Problems: (1) Cancer, metastatic ICD Codes: C79.9 - Secondary malignant neoplasm of unspecified site SNOMED: 874929305 (2) Abdominal pain ICD Codes: R10.9 - Unspecified abdominal pain SNOMED: 90905845 (3) Cirrhosis ICD Codes: K74.60 - Unspecified cirrhosis of liver SNOMED: 98533676 (4) Cholecystitis ICD Codes: K81.9 - Cholecystitis, unspecified SNOMED: 49059079 (5) Pleural effusion ICD Codes: J90 - Pleural effusion, not elsewhere classified SNOMED: 12599120 (6) Ovarian carcinoma ICD Codes: C56.9 - Malignant neoplasm of unspecified ovary SNOMED: 105000942 Qualifiers: Qualified Codes: C56.9 - Malignant neoplasm of unspecified ovary Status: unchanged Status Narrative Discussed with Dr. Miller Assessment/Plan HIDA reviewed >> suggestive of acute cholecystitis Hx of serial paracentesis, ascites dx to be malignant at [place] s/p thoracentesis yielding .8L supportive care/follow up oncology and surgical recommendations for possible percutaneous cholecystostomy no plans for GI procedures at this time. patient will need follow up imaging for her cirrhosis and ascites abx pain mgmt ppi Follow labs The patient was seen and examined at bedside and all new and available data was reviewed in the patients chart. I agree with the above findings, impression and plan. (Patient seen earlier today. Signature stamp does not reflect patient encounter time.). - Tramaine Miller MD Subjective Subjective Abdominal pain improved Objective Last 24 Hour Vital Signs Date Time Temp Pulse Resp B/P (MAP) Pulse Ox O2 Delivery O2 Flow Rate FiO2 06/25/18 08:00 98.0 97 18 131/91 (104) 98 06/25/18 04:00 98.6 104 20 127/86 (100) 98 06/25/18 00:00 98.5 112 20 121/85 (97) 98 06/24/18 21:00 Nasal Cannula 2.0 Nasal Cannula 2.0 06/24/18 20:00 97.7 106 20 129/88 (102) 98 06/24/18 16:00 98.1 101 18 132/91 (105) 98 06/24/18 12:00 98.0 104 18 128/89 (102) 98 Intake and Output 06/24/18 06/25/18 18:59 06:59 Intake Total 400 ml Output Total 1500 ml 1200 ml Balance -1100 ml -1200 ml Intake Oral 400 ml Output Urine Total 1500 ml 1200 ml Laboratory Tests Test 06/25/18 05:00 White Blood Count 9.4 K/UL (4.8-10.8) Red Blood Count 3.81 M/UL (4.20-5.40) L Hemoglobin 11.1 G/DL (12.0-16.0) L Hematocrit 34.5 % (37.0-47.0) L Mean Corpuscular Volume 91 FL (80-99) Mean Corpuscular Hemoglobin 29.2 PG (27.0-31.0) Mean Corpuscular Hemoglobin Concent 32.2 G/DL (32.0-36.0) Red Cell Distribution Width 14.7 % (11.6-14.8) Platelet Count 714 K/UL (150-450) H Mean Platelet Volume 4.7 FL (6.5-10.1) L Neutrophils (%) (Auto) 81.0 % (45.0-75.0) H Lymphocytes (%) (Auto) 10.0 % (20.0-45.0) L Monocytes (%) (Auto) 7.9 % (1.0-10.0) Eosinophils (%) (Auto) 0.1 % (0.0-3.0) Basophils (%) (Auto) 1.0 % (0.0-2.0) Sodium Level 139 MMOL/L (136-145) Potassium Level 3.9 MMOL/L (3.5-5.1) Chloride Level 103 MMOL/L (98-107) Carbon Dioxide Level 30 MMOL/L (21-32) Anion Gap 6 mmol/L (5-15) Blood Urea Nitrogen 18 mg/dL (7-18) Creatinine 0.6 MG/DL (0.55-1.30) Estimat Glomerular Filtration Rate mL/min (>60) Glucose Level 142 MG/DL (74-106) H Calcium Level 9.0 MG/DL (8.5-10.1) Total Bilirubin 0.8 MG/DL (0.2-1.0) Aspartate Amino Transf (AST/SGOT) 100 U/L (15-37) H Alanine Aminotransferase (ALT/SGPT) 85 U/L (12-78) H Alkaline Phosphatase 1491 U/L (46-116) H Total Protein 5.5 G/DL (6.4-8.2) L Albumin 1.7 G/DL (3.4-5.0) L Globulin 3.8 g/dL Albumin/Globulin Ratio 0.4 (1.0-2.7) L Height (Feet): 5 Height (Inches): 2.00 Weight (Pounds): 126 General Appearance: WD/WN, no apparent distress, alert Cardiovascular: normal rate Respiratory/Chest: normal breath sounds, no respiratory distress Abdominal Exam: normal bowel sounds, non tender, soft Extremities: normal range of motion, non-tender Ghanshyam Bryan NP Jun 25, 2018 10:33
--- NOTE | 2018-06-25 10:57 | General Progress Note ---
Assessment/Plan Problem List: (1) Ovarian carcinoma ICD Codes: C56.9 - Malignant neoplasm of unspecified ovary SNOMED: 636436941 Qualifiers: Qualified Codes: C56.9 - Malignant neoplasm of unspecified ovary (2) Respiratory distress ICD Codes: R06.03 - Acute respiratory distress SNOMED: 259865890 (3) Pleural effusion ICD Codes: J90 - Pleural effusion, not elsewhere classified SNOMED: 82421199 (4) Hypoalbuminemia ICD Codes: E88.09 - Other disorders of plasma-protein metabolism, not elsewhere classified SNOMED: 715376765 Status: progressing Assessment/Plan acute cholycystitis discussed w dr jacobsen still has sob tube for cholycystitis per surgeon insomnia still not stable for dc pleural effusion s/p resent ovarian removal and hysterectomy Subjective ROS Limited/Unobtainable: Yes Respiratory: Reports: shortness of breath, SOB with excertion Allergies: Coded Allergies: No Known Allergies (Unverified , 06/17/18) Subjective sob Objective Last 24 Hour Vital Signs Date Time Temp Pulse Resp B/P (MAP) Pulse Ox O2 Delivery O2 Flow Rate FiO2 06/25/18 09:00 Nasal Cannula 2.0 Nasal Cannula 2.0 06/25/18 08:00 98.0 97 18 131/91 (104) 98 06/25/18 04:00 98.6 104 20 127/86 (100) 98 06/25/18 00:00 98.5 112 20 121/85 (97) 98 06/24/18 21:00 Nasal Cannula 2.0 Nasal Cannula 2.0 06/24/18 20:00 97.7 106 20 129/88 (102) 98 06/24/18 16:00 98.1 101 18 132/91 (105) 98 06/24/18 12:00 98.0 104 18 128/89 (102) 98 Intake and Output 06/24/18 06/25/18 19:00 07:00 Intake Total 400 ml Output Total 1500 ml 1200 ml Balance -1100 ml -1200 ml Intake Oral 400 ml Output Urine Total 1500 ml 1200 ml Laboratory Tests 06/25/18 05:00: White Blood Count 9.4, Red Blood Count 3.81L, Hemoglobin 11.1L, Hematocrit 34.5L , Mean Corpuscular Volume 91, Mean Corpuscular Hemoglobin 29.2, Mean Corpuscular Hemoglobin Concent 32.2, Red Cell Distribution Width 14.7, Platelet Count 714H, Mean Platelet Volume 4.7L, Neutrophils (%) (Auto) 81.0H, Lymphocytes (%) (Auto) 10.0L, Monocytes (%) (Auto) 7.9, Eosinophils (%) (Auto) 0.1, Basophils (%) (Auto) 1.0, Sodium Level 139, Potassium Level 3.9, Chloride Level 103, Carbon Dioxide Level 30, Anion Gap 6, Blood Urea Nitrogen 18, Creatinine 0.6, Estimat Glomerular Filtration Rate , Glucose Level 142H, Calcium Level 9.0, Total Bilirubin 0.8, Aspartate Amino Transf (AST/SGOT) 100H, Alanine Aminotransferase (ALT/SGPT) 85H, Alkaline Phosphatase 1491H, Total Protein 5.5L, Albumin 1.7L, Globulin 3.8, Albumin/Globulin Ratio 0.4L Height (Feet): 5 Height (Inches): 2.00 Weight (Pounds): 126 Neck: supple Cardiovascular: normal rate Respiratory/Chest: lungs clear Abdomen: soft Vane Stephenson MD Jun 25, 2018 10:57
--- NOTE | 2018-06-25 11:58 | Nephrology Progress Note ---
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 monitor labs low dose lasix k supplement Subjective ROS Limited/Unobtainable: No Constitutional: Reports: malaise Objective Objective Last 24 Hour Vital Signs Date Time Temp Pulse Resp B/P (MAP) Pulse Ox O2 Delivery O2 Flow Rate FiO2 06/25/18 09:00 Nasal Cannula 2.0 Nasal Cannula 2.0 06/25/18 08:00 98.0 97 18 131/91 (104) 98 06/25/18 04:00 98.6 104 20 127/86 (100) 98 06/25/18 00:00 98.5 112 20 121/85 (97) 98 06/24/18 21:00 Nasal Cannula 2.0 Nasal Cannula 2.0 06/24/18 20:00 97.7 106 20 129/88 (102) 98 06/24/18 16:00 98.1 101 18 132/91 (105) 98 06/24/18 12:00 98.0 104 18 128/89 (102) 98 Intake and Output 06/24/18 06/25/18 19:00 07:00 Intake Total 400 ml Output Total 1500 ml 1200 ml Balance -1100 ml -1200 ml Intake Oral 400 ml Output Urine Total 1500 ml 1200 ml Laboratory Tests 06/25/18 05:00: White Blood Count 9.4, Red Blood Count 3.81L, Hemoglobin 11.1L, Hematocrit 34.5L , Mean Corpuscular Volume 91, Mean Corpuscular Hemoglobin 29.2, Mean Corpuscular Hemoglobin Concent 32.2, Red Cell Distribution Width 14.7, Platelet Count 714H, Mean Platelet Volume 4.7L, Neutrophils (%) (Auto) 81.0H, Lymphocytes (%) (Auto) 10.0L, Monocytes (%) (Auto) 7.9, Eosinophils (%) (Auto) 0.1, Basophils (%) (Auto) 1.0, Sodium Level 139, Potassium Level 3.9, Chloride Level 103, Carbon Dioxide Level 30, Anion Gap 6, Blood Urea Nitrogen 18, Creatinine 0.6, Estimat Glomerular Filtration Rate , Glucose Level 142H, Calcium Level 9.0, Total Bilirubin 0.8, Aspartate Amino Transf (AST/SGOT) 100H, Alanine Aminotransferase (ALT/SGPT) 85H, Alkaline Phosphatase 1491H, Total Protein 5.5L, Albumin 1.7L, Globulin 3.8, Albumin/Globulin Ratio 0.4L Height (Feet): 5 Height (Inches): 2.00 Weight (Pounds): 126 General Appearance: no apparent distress Respiratory/Chest: decreased breath sounds Abdomen: distended Jae Walker MD Jun 25, 2018 11:58
--- NOTE | 2018-06-25 11:59 | Infectious Diseases Prog Note ---
Assessment/Plan Assessment/Plan A 1. Enterococcal , candidal UTI 2. Acute cholecystitis , Cholangitis 3. pleural effusion s/p thoracentesis 4. leucocytosis resolved 5. ovarian cancer P 1.Continue Zosyn & fluconazole 2 According to surgeon no candidate for surgery 3. Will have IR guided cholecystotomy tube placement Subjective ROS Limited/Unobtainable: Yes Constitutional: Reports: no symptoms Allergies: Coded Allergies: No Known Allergies (Unverified , 06/17/18) Objective Vital Signs Last 24 Hour Vital Signs Date Time Temp Pulse Resp B/P (MAP) Pulse Ox O2 Delivery O2 Flow Rate FiO2 06/25/18 09:00 Nasal Cannula 2.0 Nasal Cannula 2.0 06/25/18 08:00 98.0 97 18 131/91 (104) 98 06/25/18 04:00 98.6 104 20 127/86 (100) 98 06/25/18 00:00 98.5 112 20 121/85 (97) 98 06/24/18 21:00 Nasal Cannula 2.0 Nasal Cannula 2.0 06/24/18 20:00 97.7 106 20 129/88 (102) 98 06/24/18 16:00 98.1 101 18 132/91 (105) 98 06/24/18 12:00 98.0 104 18 128/89 (102) 98 Height (Feet): 5 Height (Inches): 2.00 Weight (Pounds): 126 General Appearance: no acute distress HEENT: mucous membranes moist Respiratory/Chest: lungs clear Cardiovascular: normal rate Abdomen: soft, non tender Extremities: no edema Neurologic/Psychiatric: other - sleeping Laboratory Tests Test 06/25/18 05:00 White Blood Count 9.4 K/UL (4.8-10.8) Red Blood Count 3.81 M/UL (4.20-5.40) L Hemoglobin 11.1 G/DL (12.0-16.0) L Hematocrit 34.5 % (37.0-47.0) L Mean Corpuscular Volume 91 FL (80-99) Mean Corpuscular Hemoglobin 29.2 PG (27.0-31.0) Mean Corpuscular Hemoglobin Concent 32.2 G/DL (32.0-36.0) Red Cell Distribution Width 14.7 % (11.6-14.8) Platelet Count 714 K/UL (150-450) H Mean Platelet Volume 4.7 FL (6.5-10.1) L Neutrophils (%) (Auto) 81.0 % (45.0-75.0) H Lymphocytes (%) (Auto) 10.0 % (20.0-45.0) L Monocytes (%) (Auto) 7.9 % (1.0-10.0) Eosinophils (%) (Auto) 0.1 % (0.0-3.0) Basophils (%) (Auto) 1.0 % (0.0-2.0) Sodium Level 139 MMOL/L (136-145) Potassium Level 3.9 MMOL/L (3.5-5.1) Chloride Level 103 MMOL/L (98-107) Carbon Dioxide Level 30 MMOL/L (21-32) Anion Gap 6 mmol/L (5-15) Blood Urea Nitrogen 18 mg/dL (7-18) Creatinine 0.6 MG/DL (0.55-1.30) Estimat Glomerular Filtration Rate mL/min (>60) Glucose Level 142 MG/DL (74-106) H Calcium Level 9.0 MG/DL (8.5-10.1) Total Bilirubin 0.8 MG/DL (0.2-1.0) Aspartate Amino Transf (AST/SGOT) 100 U/L (15-37) H Alanine Aminotransferase (ALT/SGPT) 85 U/L (12-78) H Alkaline Phosphatase 1491 U/L (46-116) H Total Protein 5.5 G/DL (6.4-8.2) L Albumin 1.7 G/DL (3.4-5.0) L Globulin 3.8 g/dL Albumin/Globulin Ratio 0.4 (1.0-2.7) L Current Medications Medications (Trade) Dose Ordered Sig/Susana Route PRN Reason Start Time Stop Time Status Last Admin Dose Admin Acetaminophen (Tylenol) 500 mg Q4H PRN ORAL Mild Pain/Temp > 100.5 06/23/18 11:30 07/17/18 11:29 06/23/18 16:06 Bisacodyl (Dulcolax) 10 mg DAILY ORAL 06/24/18 09:00 07/20/18 08:59 06/24/18 10:49 Docusate Sodium (Colace) 100 mg TWICE A DAY ORAL 06/23/18 18:00 07/19/18 18:59 06/24/18 17:30 Fluconazole (Diflucan) 100 mg DAILY ORAL 06/24/18 09:00 06/27/18 11:59 06/25/18 09:23 Furosemide (Lasix) 20 mg Q8HR IV 06/24/18 14:00 07/18/18 08:59 06/25/18 06:44 Heparin Sodium (Porcine) (Heparin 5000 units/ml) 5,000 units EVERY 12 HOURS SUBQ 06/23/18 21:00 07/21/18 08:59 06/24/18 21:32 Magnesium Hydroxide (Mom) 30 ml Q4H PRN ORAL Constipation 06/23/18 14:30 07/19/18 18:29 Morphine Sulfate (Morphine Sulfate) 2 mg Q4H PRN IVP Moderate Pain (Pain Scale 4-6) 06/25/18 09:19 06/27/18 09:18 Morphine Sulfate (Morphine Sulfate) 4 mg Q4H PRN IVP Severe Pain (Pain Scale 7-10) 06/25/18 09:19 06/27/18 09:18 Pantoprazole (Protonix) 40 mg DAILY ORAL 06/24/18 09:00 07/18/18 08:59 06/25/18 09:23 Piperacillin Sod/ Tazobactam Sod 3.375 gm/Sodium Chloride 110 ml @ 27.5 mls/hr EVERY 8 HOURS IVPB 06/23/18 14:00 06/28/18 13:59 06/25/18 06:44 Potassium Chloride (K-Dur) 40 meq TWICE A DAY ORAL 06/23/18 18:00 07/18/18 17:59 06/24/18 17:30 Zolpidem Tartrate (Ambien) 5 mg HSPRN PRN ORAL Insomnia 06/23/18 12:00 06/28/18 11:59 06/24/18 21:30 Eugenio Goss MD Jun 25, 2018 11:59
[2018-06-25] MEDS ORDERED: Lidocaine 1% Plain 30 ml INJ ONE (13:41)
--- NOTE | 2018-06-25 13:41 | Pre-Procedure Note/Attestation ---
Pre-Procedure Note/Attestation Complete Prior to Procedure Planned Procedure: not applicable Procedure Narrative: percutaneous cholecystostomy, possible moderate sedation Indications for Procedure Pre-Operative Diagnosis: acute cholecystitis Attestation I attest that I discussed the nature of the procedure; its benefits; risks and complications; and alternatives (and the risks and benefits of such alternatives ), prior to the procedure, with the patient (or the patient's legal franchise sales representative). I attest that, if there was a reasonable possibility of needing a blood transfusion, the patient (or the patient's legal franchise sales representative) was given the [facility] standardized written summary, pursuant to the Marek Yousuf Blood Safety Act ([place] Health and Safety Code # 1645, as amended). I attest that I re-evaluated the patient just prior to the surgery and that there has been no change in the patient's H&P, except as documented below: Discussed by phone with pt's. daughter yesterday Richard Fitzgerald MD Jun 25, 2018 13:41
--- NOTE | 2018-06-25 13:42 | Moderate Sedation - Procedural ---
Moderate Sedation HPI Home Medication Reported Medications Morphine HCl (Morphine Sulfate ER) 15 Mg Tablet.er, 15 MG ORAL BID, TAB 06/21/18 Hydrocodone Bit/Acetaminophen 5-325* (NORCO 5-325*) 1 Each Tablet, ORAL Q4H PRN for For Pain, TAB 0 Refills 06/17/18 Discontinued Reported Medications Morphine Sulfate (Morphine Sulfate ER) 100 Mg Tablet.er, ORAL EVERY 12 HOURS, # 30 TAB 0 Refills 06/17/18 Patient History Allergies: Coded Allergies: No Known Allergies (Unverified , 06/17/18) Pre-Procedural Mod Sedation Date: Jun 25, 2018 Pre-Assessment Time: 16:00 Pre-Sedation Assessment: Elective, Eval. Immed. Prior to Sed Airway Assessment (Malampati): III Evaluation Hx of untoward rxns to mod sed: No Procedures/Plans: Radiology Plan for Moderate Sedation: Midazolam, Fentanyl ASA Score: III Informed Consent The nature of the procedure/sedation; its benefits; risks and complications; and alternatives (and the risks and benefits of such alternatives) were discussed with the patient (or their legal parts representative), prior to the procedure. All questions were answered to the patient's (or their legal parts representative's) satisfaction and the patient (or their legal parts representative) gave informed consent to the procedure. I attest that I re-evaluated the patient just prior to the surgery and that there has been no change in the patient's H&P, except as documented below: Post Procedure Assessment Post Procedure TIme: 16:25 Communication: No Apparent Limitation Mental Status: Awake Respiration: Unlabored Skin Condition: WNL Adomen: WNL Nausea: NO Vomiting: NO Richard iFtzgerald MD Jun 25, 2018 13:42
[2018-06-25] MEDS ORDERED: Lidocaine 1% Plain 30 ml INJ SCH (13:51)
[2018-06-25] MEDS ORDERED: Heparin1,000 units/500ml Premix(Conc:2 units/ml) INJ SCH (14:00)
[2018-06-25] MEDS ORDERED: Midazolam 2mg/2ml Inj ONE (15:17)
[2018-06-25] MEDS ORDERED: fentaNYL 100 mcg/2 mL IV ONE (15:17)
--- NOTE | 2018-06-25 15:23 | NUR ---
NURSE NOTES: Patient taken down for procedure. Consents signed with Polish speaking nurse Ana Morley RN.
--- NOTE | 2018-06-25 16:13 | General Progress Note ---
Assessment/Plan Assessment/Plan Assessment/Recommendations # Thrombocytosis - likely related to reactive process, ovarian cancer potential hx of mets --> Continue to monitor for improvement --> plt trend: 860-->863-->917-->937 --> Trend CBC as needed --> Jak2 has been ordered --> Smear reviewed and no abnormalities noted. *Under manual differential # ovarian cancer s/p resection with likely malignant ascites and presumed malignant effusions --> review outside imaging and treatments patient has received --> outside labs and pathology to be reviewed --> defer to outpatient oncologist for further care, patient requires followup, has followup with [facility] # Anemia of chronic disease (or of iron deficiency) due to underlying chronic medical issues, multifactorial --> Anemia workup has been reviewed, --> No evidence of hemolysis is noted, peripheral smear has been reviewed. --> Hgb goal >7. Transfuse prn. --> Epogen or iron at this time is not particularly indicated --> Medications have been reviewed # Leukocytosis. Likely related to underlying infection versus reactive process. --> Peripheral has been ordered, no blasts are noted --> Medications have been reviewed --> Imaging has been reviewed --> Blood cultures and urine cultures prn --> has been started on abx, empiric treatment # Shortness of breath # Large bilateral pleural effusions --> thoracentesis eval with pleural fluid studies --> 06/18: Successful ultrasound-guided right thoracentesis, yielding 0.8 liters of fluid The timing of this note does not necessarily reflect the time of the patient was seen. Greatly appreciate consultation! Subjective Constitutional: Denies: no symptoms, chills, diaphoresis, fever, malaise, weakness, other HEENT: Denies: no symptoms, eye pain, blurred vision, tearing, double vision, ear pain, ear discharge, nose pain, nose congestion, throat pain, throat swelling, mouth pain, mouth swelling, other Cardiovascular: Denies: no symptoms, chest pain, edema, irregular heart rate, lightheadedness, palpitations, syncope, other Respiratory: Denies: no symptoms, cough, orthopnea, shortness of breath, SOB with excertion, SOB at rest, sputum, stridor, wheezing, other Gastrointestinal/Abdominal: Denies: no symptoms, abdomen distended, abdominal pain, black stools, tarry stools, blood in stool, constipated, diarrhea, difficulty swallowing, nausea, poor appetite, poor fluid intake, rectal bleeding , vomiting, other Genitourinary: Denies: no symptoms, burning, discharge, frequency, flank pain, hematuria, incontinence, pain, urgency, other Neurologic/Psychiatric: Denies: no symptoms, anxiety, depressed, emotional problems, headache, numbness, paresthesia, pre-existing deficit, seizure, tingling, tremors, weakness, other Endocrine: Denies: no symptoms, excessive sweating, flushing, intolerance to cold, intolerance to heat, increased hunger, increased thirst, increased urine, unexplained weight gain, unexplained weight loss, other Hematologic/Lymphatic: Denies: no symptoms, anemia, easy bleeding, easy bruising, other Allergies: Coded Allergies: No Known Allergies (Unverified , 06/17/18) Subjective 06/18: thoracentesis eval with pleural fluid studies today, plt remains elevated. 06/19: seen by bedside, no acute distress, no signs of pain. No pneumothorax is reported on CXR 06/22: Patient is is resting in bed with family at bed side. Patient has pain which is at a moderate level and tolerated on the Morphine. HIDA scan reveals, suspicious for acute cholecystitis. plt continue to be elevated and trending up. 06/23: seen by bedside, awake, comfortable, no acute distress, no events 06/24: HIDA reviewed >> suggestive of acute cholecystitis, no plans for GI procedures at this time, patient will need follow up imaging for her cirrhosis and ascites, continues to have abdominal pain 06/25: awake, comfortable, no acute distress. Objective Last 24 Hour Vital Signs Date Time Temp Pulse Resp B/P (MAP) Pulse Ox O2 Delivery O2 Flow Rate FiO2 06/25/18 16:10 109 18 121/81 (94) 99 06/25/18 16:05 111 18 115/78 (90) 99 06/25/18 16:00 110 18 123/82 (96) 99 06/25/18 12:00 97.7 103 20 129/89 (102) 96 06/25/18 09:00 Nasal Cannula 2.0 Nasal Cannula 2.0 06/25/18 08:00 98.0 97 18 131/91 (104) 98 06/25/18 04:00 98.6 104 20 127/86 (100) 98 06/25/18 00:00 98.5 112 20 121/85 (97) 98 06/24/18 21:00 Nasal Cannula 2.0 Nasal Cannula 2.0 06/24/18 20:00 97.7 106 20 129/88 (102) 98 Intake and Output 06/24/18 06/25/18 19:00 07:00 Intake Total 400 ml 27.5 ml Output Total 1500 ml 1200 ml Balance -1100 ml -1172.5 ml Intake Oral 400 ml IV Total 27.5 ml Output Urine Total 1500 ml 1200 ml Laboratory Tests 06/25/18 05:00: White Blood Count 9.4, Red Blood Count 3.81L, Hemoglobin 11.1L, Hematocrit 34.5L , Mean Corpuscular Volume 91, Mean Corpuscular Hemoglobin 29.2, Mean Corpuscular Hemoglobin Concent 32.2, Red Cell Distribution Width 14.7, Platelet Count 714H, Mean Platelet Volume 4.7L, Neutrophils (%) (Auto) 81.0H, Lymphocytes (%) (Auto) 10.0L, Monocytes (%) (Auto) 7.9, Eosinophils (%) (Auto) 0.1, Basophils (%) (Auto) 1.0, Sodium Level 139, Potassium Level 3.9, Chloride Level 103, Carbon Dioxide Level 30, Anion Gap 6, Blood Urea Nitrogen 18, Creatinine 0.6, Estimat Glomerular Filtration Rate , Glucose Level 142H, Calcium Level 9.0, Total Bilirubin 0.8, Aspartate Amino Transf (AST/SGOT) 100H, Alanine Aminotransferase (ALT/SGPT) 85H, Alkaline Phosphatase 1491H, Total Protein 5.5L, Albumin 1.7L, Globulin 3.8, Albumin/Globulin Ratio 0.4L Height (Feet): 5 Height (Inches): 2.00 Weight (Pounds): 126 Objective Physical Exam General Appearance: no apparent distress, alert HEENT: normocephalic, atraumatic Neck: supple Respiratory/Chest: decreased breath sounds Cardiovascular/Chest: normal rate, regular rhythm Abdomen: non tender, soft Extremities: no edema Keegan Flores MD Jun 25, 2018 16:13
--- NOTE | 2018-06-25 16:27 | Brief Operative Note ---
Immediate Post Operative Note Operative Note Pre-op Diagnosis: acute cholecystitis Procedure: cholecystostomy Post-op Diagnosis: same as pre-op Surgeon: Nayla Fitzgerald Specimen: yes - 15 ml pus removed and sent to lab Complications: none Condition: stable Fluids: none Estimated Blood Loss: none Drains: other - 7 F uzma Implant(s) used?: No Richard Fitzgerald MD Jun 25, 2018 16:27
--- NOTE | 2018-06-25 16:52 | NUR ---
NURSE NOTES: Patient returned from procedure. No s/s acute distress. RUQ cholecystostomy open to Uresil bag and gravity drainage. Will continue to monitor.
--- NOTE | 2018-06-25 17:05 | Surgery Progress Note ---
Surgery Progress Note Subjective Additional Comments cholecystostomy tube placed today Objective Last 24 Hour Vital Signs Date Time Temp Pulse Resp B/P (MAP) Pulse Ox O2 Delivery O2 Flow Rate FiO2 06/25/18 16:54 105 18 3.0 06/25/18 16:30 109 18 127/80 (96) 98 06/25/18 16:25 110 18 126/84 (98) 99 06/25/18 16:20 108 18 122/81 (95) 99 06/25/18 16:15 109 18 123/82 (96) 99 06/25/18 16:10 109 18 121/81 (94) 99 06/25/18 16:05 111 18 115/78 (90) 99 06/25/18 16:00 110 18 123/82 (96) 99 06/25/18 12:00 97.7 103 20 129/89 (102) 96 06/25/18 09:00 Nasal Cannula 2.0 Nasal Cannula 2.0 06/25/18 08:00 98.0 97 18 131/91 (104) 98 06/25/18 04:00 98.6 104 20 127/86 (100) 98 06/25/18 00:00 98.5 112 20 121/85 (97) 98 06/24/18 21:00 Nasal Cannula 2.0 Nasal Cannula 2.0 06/24/18 20:00 97.7 106 20 129/88 (102) 98 I&O Intake and Output 06/24/18 06/25/18 19:00 07:00 Intake Total 400 ml 27.5 ml Output Total 1500 ml 1200 ml Balance -1100 ml -1172.5 ml Intake Oral 400 ml IV Total 27.5 ml Output Urine Total 1500 ml 1200 ml Dressing: other Wound: other Drains: other Cardiovascular: RSR Respiratory: clear Abdomen: soft, non-distended Extremities: other Laboratory Tests Test 06/25/18 05:00 White Blood Count 9.4 K/UL (4.8-10.8) Red Blood Count 3.81 M/UL (4.20-5.40) L Hemoglobin 11.1 G/DL (12.0-16.0) L Hematocrit 34.5 % (37.0-47.0) L Mean Corpuscular Volume 91 FL (80-99) Mean Corpuscular Hemoglobin 29.2 PG (27.0-31.0) Mean Corpuscular Hemoglobin Concent 32.2 G/DL (32.0-36.0) Red Cell Distribution Width 14.7 % (11.6-14.8) Platelet Count 714 K/UL (150-450) H Mean Platelet Volume 4.7 FL (6.5-10.1) L Neutrophils (%) (Auto) 81.0 % (45.0-75.0) H Lymphocytes (%) (Auto) 10.0 % (20.0-45.0) L Monocytes (%) (Auto) 7.9 % (1.0-10.0) Eosinophils (%) (Auto) 0.1 % (0.0-3.0) Basophils (%) (Auto) 1.0 % (0.0-2.0) Sodium Level 139 MMOL/L (136-145) Potassium Level 3.9 MMOL/L (3.5-5.1) Chloride Level 103 MMOL/L (98-107) Carbon Dioxide Level 30 MMOL/L (21-32) Anion Gap 6 mmol/L (5-15) Blood Urea Nitrogen 18 mg/dL (7-18) Creatinine 0.6 MG/DL (0.55-1.30) Estimat Glomerular Filtration Rate mL/min (>60) Glucose Level 142 MG/DL (74-106) H Calcium Level 9.0 MG/DL (8.5-10.1) Total Bilirubin 0.8 MG/DL (0.2-1.0) Aspartate Amino Transf (AST/SGOT) 100 U/L (15-37) H Alanine Aminotransferase (ALT/SGPT) 85 U/L (12-78) H Alkaline Phosphatase 1491 U/L (46-116) H Total Protein 5.5 G/DL (6.4-8.2) L Albumin 1.7 G/DL (3.4-5.0) L Globulin 3.8 g/dL Albumin/Globulin Ratio 0.4 (1.0-2.7) L Plan Problems: (1) Cholecystitis Assessment & Plan: acute cholecystitis ovarian cancer with mets complicated medical and surgical history Cholelithiasis and gallbladder wall thickening. Note that recent hepatobiliary nuclear scan is positive for acute cholecystitis. Given the nodular and irregular appearance of the gallbladder wall, possibly a gallbladder neoplasm should also be considered Unusual enhancement of the biliary ductal hernandez, raising concern for cholangitis. Correlate with clinical history and findings given above no surgery recommended. cholecystotomy tube placed MRCP noted cont current care will follow with recs as results available thank you (2) Abdominal pain Rich Kiran Jun 25, 2018 17:05
--- NOTE | 2018-06-25 17:37 | Diagnostic Imaging Report ---
Indication: Acute cholecystitis demonstrated on prior imaging studies Technique: Patient already on antibiotics. Informed consent obtained prior to commencement of the procedure, both from the patient and patient's daughter. Procedural timeout performed. Sterile prepping and draping right upper quadrant. Local anesthesia with 1% lidocaine. Under real-time ultrasound guidance, the gallbladder lumen was accessed with a 21-gauge needle, using a transhepatic approach. 0.018 guidewire, inserted, followed by introduction of a 6 Colombian Porter stick introducer. Dilator and stiffener were removed. Guidewire left in as a safety wire. 0.035 guidewire was then inserted under direct fluoroscopic and sonographic visualization. Difficulty was encountered in passing a 7 [place]ian Trammell-Alexander catheter over the guidewire, so the tract was dilated with an 8 [place]ian dilator, and the guidewire was exchanged for an Amplatz guidewire, and the guidewire position within the gallbladder lumen was optimized using a Kumpe catheter. The Trammell-Alexander catheter was then easily introduced. The stiffener and guidewire were removed, pigtail formed. Approximately 15 mL of darshan pus aspirated from the gallbladder lumen. A small amount of contrast was injected, confirming intracholecystic placement of the catheter. The contrast was then reaspirated. The catheter was fixed to the skin and placed to gravity drainage. The patient tolerated the procedure well, without immediate complication. A specimen was sent to the lab for microbial and cytological analysis Total fluoroscopy time 114.4 seconds. Total dose area product 13.36 mGy Number of images: 5 Comparison: Reference made to prior abdomen pelvis CT, MRI, hepatobiliary scan, and ultrasound Findings: As above Impression: Successful percutaneous cholecystostomy under ultrasound and fluoroscopic guidance. Note that aspiration of the gallbladder yielded approximately 15 mL of darshan pus
--- NOTE | 2018-06-25 19:18 | NUR ---
NURSE NOTES: VS taken per MD order. VS stable. No output from Uracil drainage bag yet. Sanguinous output noted in tubing. Will continue to monitor and endorse to wood pole treater.
--- NOTE | 2018-06-25 19:22 | NUR ---
CASE MANAGEMENT: REVIEW 06/25/2018 SI: RESP DISTRESS, S/P THORACENTESIS T 98 HR 102 RR 20 B/P 135/93 SATS 96% 2L/NC GLU 142 AST 100 ALT 85 ALP 1491 IS: ZOSYN IV LASIX IV DIFLUCAN PO PROTONIX PO MED/SURG STATUS
--- NOTE | 2018-06-25 19:30 | NUR ---
HAND-OFF: Report given to Chalo RN. Patient in stable condition.
--- NOTE | 2018-06-25 20:11 | NUR ---
NURSE NOTES: Received not Addendum: 06/25/18 at 2015 by Chalo Fermin RN Received report from Crystal KIRBY. Pt A&O x4, laying semi-stauffer in bed. No signs of pain or distress. IV sites dry&intact. Dressing on RUQ C/D/I. Pt on 2L NC. Anyi patent & draining. Call light in reach, bed in lowest position, side rails up x2. Will continue to monitor pt.
--- NOTE | 2018-06-25 20:58 | Cardiology Progress Note ---
Assessment/Plan Assessment/Plan 1. Sinus tachycardia, likely due to intravascular volume depletion due to low oncotic pressure, consider albumin administration. Other etiologies include sepsis and increased tumor burden. 2. B/L pleural effusion, s/p thoracentesis 3. Metastatic ovarian cancer 4. FTT 5. Respiratory failure. 6. Encephalopathy 7. Moderate pulmonary HTN. Subjective Subjective In non-tele bed. No cardiac events is reported. Objective Last 24 Hour Vital Signs Date Time Temp Pulse Resp B/P (MAP) Pulse Ox O2 Delivery O2 Flow Rate FiO2 06/25/18 19:00 98.0 102 20 135/93 (107) 96 06/25/18 18:30 97.2 103 18 137/93 (108) 99 06/25/18 18:00 97.5 106 20 139/93 (108) 98 06/25/18 17:45 97.0 105 17 139/93 (108) 99 06/25/18 17:30 97.9 104 18 138/92 (107) 99 06/25/18 17:15 98.0 103 19 139/91 (107) 99 06/25/18 17:00 98.0 100 20 130/90 (103) 98 06/25/18 16:54 105 18 3.0 06/25/18 16:30 109 18 127/80 (96) 98 06/25/18 16:25 110 18 126/84 (98) 99 06/25/18 16:20 108 18 122/81 (95) 99 06/25/18 16:15 109 18 123/82 (96) 99 06/25/18 16:10 109 18 121/81 (94) 99 06/25/18 16:05 111 18 115/78 (90) 99 06/25/18 16:00 110 18 123/82 (96) 99 06/25/18 12:00 97.7 103 20 129/89 (102) 96 06/25/18 09:00 Nasal Cannula 2.0 Nasal Cannula 2.0 06/25/18 08:00 98.0 97 18 131/91 (104) 98 06/25/18 04:00 98.6 104 20 127/86 (100) 98 06/25/18 00:00 98.5 112 20 121/85 (97) 98 06/24/18 21:00 Nasal Cannula 2.0 Nasal Cannula 2.0 Intake and Output 06/24/18 06/25/18 19:00 07:00 Intake Total 400 ml 27.5 ml Output Total 1500 ml 1200 ml Balance -1100 ml -1172.5 ml Intake Oral 400 ml IV Total 27.5 ml Output Urine Total 1500 ml 1200 ml 2D Echo: LVEF 65%, Grade I LVDD, pleural effusion, RVSP 48 mmHg Laboratory Tests Test 06/25/18 05:00 White Blood Count 9.4 K/UL (4.8-10.8) Red Blood Count 3.81 M/UL (4.20-5.40) L Hemoglobin 11.1 G/DL (12.0-16.0) L Hematocrit 34.5 % (37.0-47.0) L Mean Corpuscular Volume 91 FL (80-99) Mean Corpuscular Hemoglobin 29.2 PG (27.0-31.0) Mean Corpuscular Hemoglobin Concent 32.2 G/DL (32.0-36.0) Red Cell Distribution Width 14.7 % (11.6-14.8) Platelet Count 714 K/UL (150-450) H Mean Platelet Volume 4.7 FL (6.5-10.1) L Neutrophils (%) (Auto) 81.0 % (45.0-75.0) H Lymphocytes (%) (Auto) 10.0 % (20.0-45.0) L Monocytes (%) (Auto) 7.9 % (1.0-10.0) Eosinophils (%) (Auto) 0.1 % (0.0-3.0) Basophils (%) (Auto) 1.0 % (0.0-2.0) Sodium Level 139 MMOL/L (136-145) Potassium Level 3.9 MMOL/L (3.5-5.1) Chloride Level 103 MMOL/L (98-107) Carbon Dioxide Level 30 MMOL/L (21-32) Anion Gap 6 mmol/L (5-15) Blood Urea Nitrogen 18 mg/dL (7-18) Creatinine 0.6 MG/DL (0.55-1.30) Estimat Glomerular Filtration Rate mL/min (>60) Glucose Level 142 MG/DL (74-106) H Calcium Level 9.0 MG/DL (8.5-10.1) Total Bilirubin 0.8 MG/DL (0.2-1.0) Aspartate Amino Transf (AST/SGOT) 100 U/L (15-37) H Alanine Aminotransferase (ALT/SGPT) 85 U/L (12-78) H Alkaline Phosphatase 1491 U/L (46-116) H Total Protein 5.5 G/DL (6.4-8.2) L Albumin 1.7 G/DL (3.4-5.0) L Globulin 3.8 g/dL Albumin/Globulin Ratio 0.4 (1.0-2.7) L Objective HEENT: Atraumatic and normocephalic. Anicteric. Pupils are equal, round, and reactive to light and accommodation. Extraocular muscles intact. NECK: JVP less than 5 cm. No carotid bruit. Carotid upstrokes 2+ bilaterally. CARDIOVASCULAR: Normal S1, S2. Regular rate and rhythm. Tachycardic. No murmurs, gallops, or rubs. LUNGS: Diminished breath sounds in both bases. ABDOMEN: Soft, nontender, and nondistended. No hepatosplenomegaly. Positive bowel sounds. An abdominal incision site is clean. EXTREMITIES: No evidence of edema, clubbing, or cyanosis. Andrew Man MD Jun 25, 2018 20:58
--- NOTE | 2018-06-25 21:57 | NUR ---
Uresil catheter flushed per MD order, draining serosanguineous drainage.
[2018-06-26] VITALS: BP 130/88
[2018-06-26 04:00] VITALS: BP 137/93
[2018-06-26] MEDS: Piperacillin/Tazobactam 3.375 GM in NS 110 ML IVPB SCH ×3 (05:41→22:46)
--- NOTE | 2018-06-26 07:48 | NUR ---
HAND-OFF: Report given to Mina KIRBY. Pt is stable.
--- NOTE | 2018-06-26 07:50 | NUR ---
NURSE NOTES: Patient lying in bed awake. No complain of pain or distress at this time. Uresil drainage bag patent and draining well and dressing intact and dry. De Santiago catheter patent and draining well. IV dressing intact and dry. Bed lowest position. Call light within reach. Will continue to monitor.
[2018-06-26 08:00] VITALS: BP 130/91
--- NOTE | 2018-06-26 09:15 | General Progress Note ---
Assessment/Plan Assessment/Plan (1) Intractable pain (2) Ovarian cancer Patient to be continued on Morphine. Dr. Breaux and he concurred. Subjective Date patient seen: Jun 26, 2018 Time patient seen: 08:30 - am Allergies: Coded Allergies: No Known Allergies (Unverified , 06/17/18) Subjective Constitutional: Reports: weakness HEENT: Reports: no symptoms Respiratory: Reports: no symptoms Gastrointestinal/Abdominal: Reports: abdominal pain Genitourinary: Reports: no symptoms Neurologic/Psychiatric: Reports: weakness Endocrine: Reports: no symptoms Hematologic/Lymphatic: Reports: no symptoms Subjective Patient has no signs of pain or distress. Family is at bedside. Uses the morphine as needed. Objective Last 24 Hour Vital Signs Date Time Temp Pulse Resp B/P (MAP) Pulse Ox O2 Delivery O2 Flow Rate FiO2 06/26/18 04:00 97.6 107 18 137/93 (108) 98 06/26/18 00:00 98.8 106 18 130/88 (102) 96 06/25/18 21:00 Nasal Cannula 2.0 Nasal Cannula 2.0 06/25/18 19:00 98.0 102 20 135/93 (107) 96 06/25/18 18:30 97.2 103 18 137/93 (108) 99 06/25/18 18:00 97.5 106 20 139/93 (108) 98 06/25/18 17:45 97.0 105 17 139/93 (108) 99 06/25/18 17:30 97.9 104 18 138/92 (107) 99 06/25/18 17:15 98.0 103 19 139/91 (107) 99 06/25/18 17:00 98.0 100 20 130/90 (103) 98 06/25/18 16:54 105 18 3.0 06/25/18 16:30 109 18 127/80 (96) 98 06/25/18 16:25 110 18 126/84 (98) 99 06/25/18 16:20 108 18 122/81 (95) 99 06/25/18 16:15 109 18 123/82 (96) 99 06/25/18 16:10 109 18 121/81 (94) 99 06/25/18 16:05 111 18 115/78 (90) 99 06/25/18 16:00 110 18 123/82 (96) 99 06/25/18 12:00 97.7 103 20 129/89 (102) 96 Intake and Output 06/25/18 06/26/18 19:00 07:00 Intake Total 292.5 ml 360 ml Output Total 650 ml 415 ml Balance -357.5 ml -55 ml Intake Oral 100 ml 360 ml IV Total 192.5 ml Output Urine Total 650 ml 400 ml Other 15 ml Height (Feet): 5 Height (Inches): 2.00 Weight (Pounds): 126 Objective General Appearance: no apparent distress, alert EENT: PERRL/EOMI Neck: normal alignment, supple Cardiovascular: normal rate, regular rhythm Respiratory/Chest: decreased breath sounds Abdomen: tender Extremities: non-tender Neurologic: alert, responsive Skin: normal pigmentation Tenzin Foster Jun 26, 2018 09:15
--- NOTE | 2018-06-26 09:30 | NUR ---
NURSE NOTES: Family requested Ensure with tray. Spoke to regarding Ensure with new order - 1. Ensure with tray. Order noted and carried out.
--- NOTE | 2018-06-26 09:35 | NUR ---
NURSE NOTES: Spoke to Priya Pharmacist regarding Lasix IV. Per Priya: Can give Lasix IV in Med/Surg unit. Will give Lasix as ordered.
[2018-06-26] MEDS: Fluconazole 100mg tab ORAL SCH (09:57)
[2018-06-26] MEDS: Bisacodyl EC 5mg tab ORAL SCH (09:57)
[2018-06-26] MEDS: Docusate 100mg cap ORAL SCH ×2 (09:58→17:12)
[2018-06-26] MEDS: Heparin 5000 units/ml inj SUBQ SCH ×2 (09:59→21:49)
--- NOTE | 2018-06-26 10:28 | General Progress Note ---
Assessment/Plan Problem List: (1) Cancer, metastatic ICD Codes: C79.9 - Secondary malignant neoplasm of unspecified site SNOMED: 814949271 (2) Cirrhosis ICD Codes: K74.60 - Unspecified cirrhosis of liver SNOMED: 72077442 (3) Cholecystitis ICD Codes: K81.9 - Cholecystitis, unspecified SNOMED: 74031408 (4) Hypoalbuminemia ICD Codes: E88.09 - Other disorders of plasma-protein metabolism, not elsewhere classified SNOMED: 767465542 (5) Pleural effusion ICD Codes: J90 - Pleural effusion, not elsewhere classified SNOMED: 42821724 (6) Respiratory distress ICD Codes: R06.03 - Acute respiratory distress SNOMED: 849970958 (7) Ovarian carcinoma ICD Codes: C56.9 - Malignant neoplasm of unspecified ovary SNOMED: 925686619 Qualifiers: Qualified Codes: C56.9 - Malignant neoplasm of unspecified ovary Assessment/Plan CT and MRCP reviewed surg input appreciated no plans for ERCP given no dilated dust and poor prognosis s/p cholecystostomy tube fu labs abx supportive care Subjective ROS Limited/Unobtainable: No Allergies: Coded Allergies: No Known Allergies (Unverified , 06/17/18) Objective Last 24 Hour Vital Signs Date Time Temp Pulse Resp B/P (MAP) Pulse Ox O2 Delivery O2 Flow Rate FiO2 06/26/18 09:00 Nasal Cannula 2.0 Nasal Cannula 2.0 06/26/18 08:00 98.1 113 20 130/91 (104) 95 06/26/18 04:00 97.6 107 18 137/93 (108) 98 06/26/18 00:00 98.8 106 18 130/88 (102) 96 06/25/18 21:00 Nasal Cannula 2.0 Nasal Cannula 2.0 06/25/18 19:00 98.0 102 20 135/93 (107) 96 06/25/18 18:30 97.2 103 18 137/93 (108) 99 06/25/18 18:00 97.5 106 20 139/93 (108) 98 06/25/18 17:45 97.0 105 17 139/93 (108) 99 06/25/18 17:30 97.9 104 18 138/92 (107) 99 06/25/18 17:15 98.0 103 19 139/91 (107) 99 06/25/18 17:00 98.0 100 20 130/90 (103) 98 06/25/18 16:54 105 18 3.0 06/25/18 16:30 109 18 127/80 (96) 98 06/25/18 16:25 110 18 126/84 (98) 99 06/25/18 16:20 108 18 122/81 (95) 99 06/25/18 16:15 109 18 123/82 (96) 99 06/25/18 16:10 109 18 121/81 (94) 99 06/25/18 16:05 111 18 115/78 (90) 99 06/25/18 16:00 110 18 123/82 (96) 99 06/25/18 12:00 97.7 103 20 129/89 (102) 96 Intake and Output 06/25/18 06/26/18 19:00 07:00 Intake Total 292.5 ml 360 ml Output Total 650 ml 415 ml Balance -357.5 ml -55 ml Intake Oral 100 ml 360 ml IV Total 192.5 ml Output Urine Total 650 ml 400 ml Other 15 ml Height (Feet): 5 Height (Inches): 2.00 Weight (Pounds): 126 General Appearance: lethargic EENT: normal ENT inspection Neck: supple Cardiovascular: tachycardia Respiratory/Chest: decreased breath sounds Abdomen: soft, decreased bowel sounds Extremities: non-tender Tramaine Miller MD Jun 26, 2018 10:28
--- NOTE | 2018-06-26 10:42 | Infectious Diseases Prog Note ---
Assessment/Plan Assessment/Plan A 1. Enterococcal , candidal UTI 2. Acute cholecystitis , Cholangitis 3. pleural effusion s/p thoracentesis 4. leucocytosis resolved 5. ovarian cancer 6. s/p IR guided cholecystotomy tube placement P 1.Continue Zosyn 2 Continue fluconazole X 1 day Subjective ROS Limited/Unobtainable: Yes Constitutional: Reports: anorexia Gastrointestinal/Abdominal: Reports: other - s/p cholecystomy tube placemet Allergies: Coded Allergies: No Known Allergies (Unverified , 06/17/18) Objective Vital Signs Last 24 Hour Vital Signs Date Time Temp Pulse Resp B/P (MAP) Pulse Ox O2 Delivery O2 Flow Rate FiO2 06/26/18 09:00 Nasal Cannula 2.0 Nasal Cannula 2.0 06/26/18 08:00 98.1 113 20 130/91 (104) 95 06/26/18 04:00 97.6 107 18 137/93 (108) 98 06/26/18 00:00 98.8 106 18 130/88 (102) 96 06/25/18 21:00 Nasal Cannula 2.0 Nasal Cannula 2.0 06/25/18 19:00 98.0 102 20 135/93 (107) 96 06/25/18 18:30 97.2 103 18 137/93 (108) 99 06/25/18 18:00 97.5 106 20 139/93 (108) 98 06/25/18 17:45 97.0 105 17 139/93 (108) 99 06/25/18 17:30 97.9 104 18 138/92 (107) 99 06/25/18 17:15 98.0 103 19 139/91 (107) 99 06/25/18 17:00 98.0 100 20 130/90 (103) 98 06/25/18 16:54 105 18 3.0 06/25/18 16:30 109 18 127/80 (96) 98 06/25/18 16:25 110 18 126/84 (98) 99 06/25/18 16:20 108 18 122/81 (95) 99 06/25/18 16:15 109 18 123/82 (96) 99 06/25/18 16:10 109 18 121/81 (94) 99 06/25/18 16:05 111 18 115/78 (90) 99 06/25/18 16:00 110 18 123/82 (96) 99 06/25/18 12:00 97.7 103 20 129/89 (102) 96 Height (Feet): 5 Height (Inches): 2.00 Weight (Pounds): 126 General Appearance: no acute distress HEENT: mucous membranes moist Respiratory/Chest: lungs clear Cardiovascular: normal rate Abdomen: soft, non tender, other - RUQ cholecystomy tube Extremities: no edema Neurologic/Psychiatric: alert, responsive Current Medications Medications (Trade) Dose Ordered Sig/Susana Route PRN Reason Start Time Stop Time Status Last Admin Dose Admin Acetaminophen (Tylenol) 500 mg Q4H PRN ORAL Mild Pain/Temp > 100.5 06/23/18 11:30 07/17/18 11:29 06/23/18 16:06 Bisacodyl (Dulcolax) 10 mg DAILY ORAL 06/24/18 09:00 07/20/18 08:59 06/26/18 09:57 Docusate Sodium (Colace) 100 mg TWICE A DAY ORAL 06/23/18 18:00 07/19/18 18:59 06/26/18 09:58 Fluconazole (Diflucan) 100 mg DAILY ORAL 06/24/18 09:00 06/27/18 11:59 06/26/18 09:57 Furosemide (Lasix) 20 mg DAILY IV 06/26/18 09:00 07/18/18 08:59 06/26/18 09:58 Heparin Sodium (Porcine) (Heparin 5000 units/ml) 5,000 units EVERY 12 HOURS SUBQ 06/23/18 21:00 07/21/18 08:59 06/26/18 09:59 Magnesium Hydroxide (Mom) 30 ml Q4H PRN ORAL Constipation 06/23/18 14:30 07/19/18 18:29 Morphine Sulfate (Morphine Sulfate) 2 mg Q4H PRN IVP Moderate Pain (Pain Scale 4-6) 06/25/18 09:19 06/27/18 09:18 Morphine Sulfate (Morphine Sulfate) 4 mg Q4H PRN IVP Severe Pain (Pain Scale 7-10) 06/25/18 09:19 06/27/18 09:18 Pantoprazole (Protonix) 40 mg DAILY ORAL 06/24/18 09:00 07/18/18 08:59 06/26/18 09:58 Piperacillin Sod/ Tazobactam Sod 3.375 gm/Sodium Chloride 110 ml @ 27.5 mls/hr EVERY 8 HOURS IVPB 06/23/18 14:00 06/28/18 13:59 06/26/18 05:41 Potassium Chloride (K-Dur) 40 meq TWICE A DAY ORAL 06/23/18 18:00 07/18/18 17:59 06/26/18 09:58 Zolpidem Tartrate (Ambien) 5 mg HSPRN PRN ORAL Insomnia 06/23/18 12:00 06/28/18 11:59 06/24/18 21:30 Eugenio Goss MD Jun 26, 2018 10:42
--- NOTE | 2018-06-26 11:55 | Surgery Progress Note ---
Surgery Progress Note Subjective Additional Comments no acute events. s/p cholecystostomy tube placement. "Successful percutaneous cholecystostomy under ultrasound and fluoroscopic guidance. Note that aspiration of the gallbladder yielded approximately 15 mL of darshan pus" Objective Last 24 Hour Vital Signs Date Time Temp Pulse Resp B/P (MAP) Pulse Ox O2 Delivery O2 Flow Rate FiO2 06/26/18 09:00 Nasal Cannula 2.0 Nasal Cannula 2.0 06/26/18 08:00 98.1 113 20 130/91 (104) 95 06/26/18 04:00 97.6 107 18 137/93 (108) 98 06/26/18 00:00 98.8 106 18 130/88 (102) 96 06/25/18 21:00 Nasal Cannula 2.0 Nasal Cannula 2.0 06/25/18 19:00 98.0 102 20 135/93 (107) 96 06/25/18 18:30 97.2 103 18 137/93 (108) 99 06/25/18 18:00 97.5 106 20 139/93 (108) 98 06/25/18 17:45 97.0 105 17 139/93 (108) 99 06/25/18 17:30 97.9 104 18 138/92 (107) 99 06/25/18 17:15 98.0 103 19 139/91 (107) 99 06/25/18 17:00 98.0 100 20 130/90 (103) 98 06/25/18 16:54 105 18 3.0 06/25/18 16:30 109 18 127/80 (96) 98 06/25/18 16:25 110 18 126/84 (98) 99 06/25/18 16:20 108 18 122/81 (95) 99 06/25/18 16:15 109 18 123/82 (96) 99 06/25/18 16:10 109 18 121/81 (94) 99 06/25/18 16:05 111 18 115/78 (90) 99 06/25/18 16:00 110 18 123/82 (96) 99 06/25/18 12:00 97.7 103 20 129/89 (102) 96 I&O Intake and Output 06/25/18 06/26/18 18:59 06:59 Intake Total 320.0 ml 360 ml Output Total 650 ml 415 ml Balance -330.0 ml -55 ml Intake Oral 100 ml 360 ml IV Total 220.0 ml Output Urine Total 650 ml 400 ml Other 15 ml Dressing: other Wound: other Drains: other Cardiovascular: RSR Respiratory: clear Abdomen: soft, flat, non-tender, present bowel sounds Extremities: other Plan Problems: (1) Cholecystitis Assessment & Plan: acute cholecystitis ovarian cancer with mets complicated medical and surgical history Cholelithiasis and gallbladder wall thickening. Note that recent hepatobiliary nuclear scan is positive for acute cholecystitis. Given the nodular and irregular appearance of the gallbladder wall, possibly a gallbladder neoplasm should also be considered Unusual enhancement of the biliary ductal hernandez, raising concern for cholangitis. Correlate with clinical history and findings cholecystotomy tube placed - Successful percutaneous cholecystostomy under ultrasound and fluoroscopic guidance. Note that aspiration of the gallbladder yielded approximately 15 mL of darshan pus given above no surgery recommended. cont current care tube care will follow with recs as results available thank you (2) Abdominal pain Rich Kiran Jun 26, 2018 11:55
[2018-06-26 12:00] VITALS: BP 131/87
--- NOTE | 2018-06-26 12:14 | General Progress Note ---
Assessment/Plan Problem List: (1) Ovarian carcinoma ICD Codes: C56.9 - Malignant neoplasm of unspecified ovary SNOMED: 336514516 Qualifiers: Qualified Codes: C56.9 - Malignant neoplasm of unspecified ovary (2) Respiratory distress ICD Codes: R06.03 - Acute respiratory distress SNOMED: 396706957 (3) Pleural effusion ICD Codes: J90 - Pleural effusion, not elsewhere classified SNOMED: 44167116 (4) Hypoalbuminemia ICD Codes: E88.09 - Other disorders of plasma-protein metabolism, not elsewhere classified SNOMED: 307136066 Status: progressing Assessment/Plan acute cholycystitis still abdmonal tender still has sob tube for cholycystitis per surgeon by IR still not stable for dc pleural effusion s/p resent ovarian removal and hysterectomy Subjective ROS Limited/Unobtainable: Yes Allergies: Coded Allergies: No Known Allergies (Unverified , 06/17/18) Subjective sob Objective Last 24 Hour Vital Signs Date Time Temp Pulse Resp B/P (MAP) Pulse Ox O2 Delivery O2 Flow Rate FiO2 06/26/18 09:00 Nasal Cannula 2.0 Nasal Cannula 2.0 06/26/18 08:00 98.1 113 20 130/91 (104) 95 06/26/18 04:00 97.6 107 18 137/93 (108) 98 06/26/18 00:00 98.8 106 18 130/88 (102) 96 06/25/18 21:00 Nasal Cannula 2.0 Nasal Cannula 2.0 06/25/18 19:00 98.0 102 20 135/93 (107) 96 06/25/18 18:30 97.2 103 18 137/93 (108) 99 06/25/18 18:00 97.5 106 20 139/93 (108) 98 06/25/18 17:45 97.0 105 17 139/93 (108) 99 06/25/18 17:30 97.9 104 18 138/92 (107) 99 06/25/18 17:15 98.0 103 19 139/91 (107) 99 06/25/18 17:00 98.0 100 20 130/90 (103) 98 06/25/18 16:54 105 18 3.0 06/25/18 16:30 109 18 127/80 (96) 98 06/25/18 16:25 110 18 126/84 (98) 99 06/25/18 16:20 108 18 122/81 (95) 99 06/25/18 16:15 109 18 123/82 (96) 99 06/25/18 16:10 109 18 121/81 (94) 99 06/25/18 16:05 111 18 115/78 (90) 99 06/25/18 16:00 110 18 123/82 (96) 99 Intake and Output 06/25/18 06/26/18 18:59 06:59 Intake Total 320.0 ml 360 ml Output Total 650 ml 415 ml Balance -330.0 ml -55 ml Intake Oral 100 ml 360 ml IV Total 220.0 ml Output Urine Total 650 ml 400 ml Other 15 ml Height (Feet): 5 Height (Inches): 2.00 Weight (Pounds): 126 Cardiovascular: normal rate Respiratory/Chest: rhonchi - bilaterally Vane Stephenson MD Jun 26, 2018 12:14
--- NOTE | 2018-06-26 13:20 | NUR ---
RD ASSESSMENT & RECOMMENDATIONS SEE CARE ACTIVITY FOR COMPLETE ASSESSMENT DAILY ESTIMATED NEEDS: Needs based on Cancer 56kg 30-35 kcals/kg 4485-2380 total kcals 1-2 g protein/kg 56-112 g total protein 25-30 mL/kg 3917-8092 total fluid mLs NUTRITION DIAGNOSIS: Increased kcal and protein needs r/t cancer as evidenced by pt w/ ovarian cancer s/p resection, currently w/ poor po intake. CURRENT DIET:Regular puree PO DIET RECOMMENDATIONS: [place]/ Regular diet (texture per MICA SIZER) ADDITIONAL RECOMMENDATIONS: 1) Obtain a calibrated bed scale wt-> pt w/ poor po 2) Add snacks in b/w meals + Ensure enlive w/ each meal 3) HgA1C for eval (BG 132-144) 4) On lasix, add B-complex daily 5) MICA SIZER eval / appropriate texture for improved po intake
[2018-06-26 16:00] VITALS: BP 121/83
--- NOTE | 2018-06-26 17:59 | Nephrology Progress Note ---
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 monitor labs low dose lasix k supplement Subjective ROS Limited/Unobtainable: No Constitutional: Reports: malaise Objective Objective Last 24 Hour Vital Signs Date Time Temp Pulse Resp B/P (MAP) Pulse Ox O2 Delivery O2 Flow Rate FiO2 06/26/18 16:00 97.5 111 20 121/83 (96) 98 06/26/18 12:00 97.9 113 19 131/87 (102) 97 06/26/18 09:00 Nasal Cannula 2.0 Nasal Cannula 2.0 06/26/18 08:00 98.1 113 20 130/91 (104) 95 06/26/18 04:00 97.6 107 18 137/93 (108) 98 06/26/18 00:00 98.8 106 18 130/88 (102) 96 06/25/18 21:00 Nasal Cannula 2.0 Nasal Cannula 2.0 06/25/18 19:00 98.0 102 20 135/93 (107) 96 06/25/18 18:30 97.2 103 18 137/93 (108) 99 06/25/18 18:00 97.5 106 20 139/93 (108) 98 Intake and Output 06/25/18 06/26/18 19:00 07:00 Intake Total 292.5 ml 360 ml Output Total 650 ml 415 ml Balance -357.5 ml -55 ml Intake Oral 100 ml 360 ml IV Total 192.5 ml Output Urine Total 650 ml 400 ml Other 15 ml Height (Feet): 5 Height (Inches): 2.00 Weight (Pounds): 126 General Appearance: no apparent distress Respiratory/Chest: decreased breath sounds Abdomen: distended Jae Walker MD Jun 26, 2018 17:59
--- NOTE | 2018-06-26 18:23 | Cardiology Progress Note ---
Assessment/Plan Assessment/Plan 1. Sinus tachycardia, likely due to sepsis, low intravascular volume depletion due to low oncotic pressure, or tumor burden. 2. B/L pleural effusion, s/p thoracentesis 3. Metastatic ovarian cancer 4. FTT 5. Respiratory failure. 6. Encephalopathy 7. Moderate pulmonary HTN. 8. Sepsis, s/p cholecystostomy. Subjective Subjective No cardiac events is reported. Objective Last 24 Hour Vital Signs Date Time Temp Pulse Resp B/P (MAP) Pulse Ox O2 Delivery O2 Flow Rate FiO2 06/26/18 16:00 97.5 111 20 121/83 (96) 98 06/26/18 12:00 97.9 113 19 131/87 (102) 97 06/26/18 09:00 Nasal Cannula 2.0 Nasal Cannula 2.0 06/26/18 08:00 98.1 113 20 130/91 (104) 95 06/26/18 04:00 97.6 107 18 137/93 (108) 98 06/26/18 00:00 98.8 106 18 130/88 (102) 96 06/25/18 21:00 Nasal Cannula 2.0 Nasal Cannula 2.0 06/25/18 19:00 98.0 102 20 135/93 (107) 96 06/25/18 18:30 97.2 103 18 137/93 (108) 99 Intake and Output 06/25/18 06/26/18 19:00 07:00 Intake Total 292.5 ml 360 ml Output Total 650 ml 415 ml Balance -357.5 ml -55 ml Intake Oral 100 ml 360 ml IV Total 192.5 ml Output Urine Total 650 ml 400 ml Other 15 ml 2D Echo: LVEF 65%, Grade I LVDD, pleural effusion, RVSP 48 mmHg Microbiology Date/Time Source Procedure Growth Status 06/25/18 16:23 Body Fluid Gram Stain - Final Resulted 06/25/18 16:23 Body Fluid Body Fluid Culture - Preliminary NO GROWTH Resulted Objective HEENT: Atraumatic and normocephalic. Anicteric. Pupils are equal, round, and reactive to light and accommodation. Extraocular muscles intact. NECK: JVP less than 5 cm. No carotid bruit. Carotid upstrokes 2+ bilaterally. CARDIOVASCULAR: Normal S1, S2. Regular rate and rhythm. Tachycardic. No murmurs, gallops, or rubs. LUNGS: Diminished breath sounds in both bases. ABDOMEN: Soft, nontender, and nondistended. No hepatosplenomegaly. Positive bowel sounds. An abdominal incision site is clean. EXTREMITIES: No evidence of edema, clubbing, or cyanosis. Andrew Man MD Jun 26, 2018 18:23
[2018-06-26 20:00] VITALS: BP 128/83
--- NOTE | 2018-06-26 20:00 | NUR ---
HAND-OFF: Report given to Lali ALMODOVAR. Patient in stable condition.
--- NOTE | 2018-06-26 20:20 | NUR ---
NURSE NOTES:Patient received lying in bed . chinese speaking A/A/AOX4 .Patient family at bedside . Patient denies any pain at this time .no sob / no n/v noted Patient on O2Lvia n/c in place . LH G# 18 H/L patent and intact. Uresil bag patent and intact no drainage at this time. De Santiago catheter draining well to yellow urine 100 cc.call light within reach . bed in low position at all times . will continue to monitor.
--- NOTE | 2018-06-26 20:42 | General Progress Note ---
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 and presumed malignant effusions --> review outside imaging and treatments patient has received --> outside labs and pathology to be reviewed --> defer to outpatient oncologist for further care, patient requires followup, has followup with [facility] --> recent surgery 05/2018, was date of initial dx # Thrombocytosis - likely related to reactive process, ovarian cancer potential hx of mets --> Continue to monitor for improvement --> plt trend: 860-->863-->917-->937 --> Trend CBC as needed --> Jak2 has been ordered --> Smear reviewed and no abnormalities noted. *Under manual differential # Anemia of chronic disease (or of iron deficiency) due to underlying chronic medical issues, multifactorial --> Anemia workup has been reviewed, --> No evidence of hemolysis is noted, peripheral smear has been reviewed. --> Hgb goal >7. Transfuse prn. --> Epogen or iron at this time is not particularly indicated --> Medications have been reviewed # Leukocytosis. Likely related to underlying infection versus reactive process. --> Peripheral has been ordered, no blasts are noted --> Medications have been reviewed --> Imaging has been reviewed --> Blood cultures and urine cultures prn --> has been started on abx, empiric treatment # Shortness of breath # Large bilateral pleural effusions --> thoracentesis eval with pleural fluid studies --> 06/18: Successful ultrasound-guided right thoracentesis, yielding 0.8 liters of fluid The timing of this note does not necessarily reflect the time of the patient was seen. Greatly appreciate consultation! Subjective Constitutional: Denies: no symptoms, chills, diaphoresis, fever, malaise, weakness, other HEENT: Denies: no symptoms, eye pain, blurred vision, tearing, double vision, ear pain, ear discharge, nose pain, nose congestion, throat pain, throat swelling, mouth pain, mouth swelling, other Cardiovascular: Denies: no symptoms, chest pain, edema, irregular heart rate, lightheadedness, palpitations, syncope, other Respiratory: Denies: no symptoms, cough, orthopnea, shortness of breath, SOB with excertion, SOB at rest, sputum, stridor, wheezing, other Gastrointestinal/Abdominal: Denies: no symptoms, abdomen distended, abdominal pain, black stools, tarry stools, blood in stool, constipated, diarrhea, difficulty swallowing, nausea, poor appetite, poor fluid intake, rectal bleeding , vomiting, other Genitourinary: Denies: no symptoms, burning, discharge, frequency, flank pain, hematuria, incontinence, pain, urgency, other Neurologic/Psychiatric: Denies: no symptoms, anxiety, depressed, emotional problems, headache, numbness, paresthesia, pre-existing deficit, seizure, tingling, tremors, weakness, other Endocrine: Denies: no symptoms, excessive sweating, flushing, intolerance to cold, intolerance to heat, increased hunger, increased thirst, increased urine, unexplained weight gain, unexplained weight loss, other Hematologic/Lymphatic: Denies: no symptoms, anemia, easy bleeding, easy bruising, other Allergies: Coded Allergies: No Known Allergies (Unverified , 06/17/18) Subjective 06/18: thoracentesis eval with pleural fluid studies today, plt remains elevated. 06/19: seen by bedside, no acute distress, no signs of pain. No pneumothorax is reported on CXR 06/22: Patient is is resting in bed with family at bed side. Patient has pain which is at a moderate level and tolerated on the Morphine. HIDA scan reveals, suspicious for acute cholecystitis. plt continue to be elevated and trending up. 06/23: seen by bedside, awake, comfortable, no acute distress, no events 06/24: HIDA reviewed >> suggestive of acute cholecystitis, no plans for GI procedures at this time, patient will need follow up imaging for her cirrhosis and ascites, continues to have abdominal pain 06/25: awake, comfortable, no acute distress. 06/26: No acute events, s/p cholecystostomy tube placement. Objective Last 24 Hour Vital Signs Date Time Temp Pulse Resp B/P (MAP) Pulse Ox O2 Delivery O2 Flow Rate FiO2 06/26/18 16:00 97.5 111 20 121/83 (96) 98 06/26/18 12:00 97.9 113 19 131/87 (102) 97 06/26/18 09:00 Nasal Cannula 2.0 Nasal Cannula 2.0 06/26/18 08:00 98.1 113 20 130/91 (104) 95 06/26/18 04:00 97.6 107 18 137/93 (108) 98 06/26/18 00:00 98.8 106 18 130/88 (102) 96 06/25/18 21:00 Nasal Cannula 2.0 Nasal Cannula 2.0 Intake and Output 06/25/18 06/26/18 19:00 07:00 Intake Total 292.5 ml 360 ml Output Total 650 ml 415 ml Balance -357.5 ml -55 ml Intake Oral 100 ml 360 ml IV Total 192.5 ml Output Urine Total 650 ml 400 ml Other 15 ml Height (Feet): 5 Height (Inches): 2.00 Weight (Pounds): 126 Objective Physical Exam General Appearance: no apparent distress, alert HEENT: normocephalic, atraumatic Neck: supple Respiratory/Chest: decreased breath sounds Cardiovascular/Chest: normal rate, regular rhythm Abdomen: non tender, soft Extremities: no edema Keegan Flores MD Jun 26, 2018 20:42
--- NOTE | 2018-06-26 21:11 | Pulmonology Progress Note ---
Assessment/Plan Assessment/Plan Pulmonary Progress Note Assessment/Plan Problem List: 1. Shortness of breath 2. Large bilateral pleural effusions -R thoracentesis 800 cc 06/18 3. ovarian cancer s/p resection with likely malignant ascites and presumed malignant effusions 4. Protein calorie malnutrition 5. Abdominal pain - acute cholecysitis Plan: -f/u MRCP results -may need cholecystostomy tube -repeat thoracentesis for now but will move forward with pleurx catheter placement once issues with gallbladder settled -f/u cytology of R thoracentesis -monitor volumes -pain control Subjective ROS Limited/Unobtainable: Yes Interval Events: Concern for cholecystitis and s/p MRCP. CXR with b/l effusions Allergies: Coded Allergies: No Known Allergies (Unverified , 06/17/18) Objective Vital Signs Noted General Appearance: no acute distress HEENT: mucous membranes moist Respiratory/Chest: decreased breath sounds Cardiovascular: regular rhythm Abdomen: distended, tender Extremities: no edema Neurologic/Psychiatric: responsive Laboratory Tests 06/24/18 05:41: White Blood Count 10.8, Red Blood Count 3.69L, Hemoglobin 11.1L, Hematocrit 33.1L, Mean Corpuscular Volume 90, Mean Corpuscular Hemoglobin 30.0, Mean Corpuscular Hemoglobin Concent 33.4, Red Cell Distribution Width 14.7, Platelet Count 770H, Mean Platelet Volume 4.6L, Neutrophils (%) (Auto) 83.8H, Lymphocytes (%) (Auto) 9.0L, Monocytes (%) (Auto) 5.8, Eosinophils (%) (Auto) 0.4, Basophils (%) (Auto) 1.0, Erythrocyte Sedimentation Rate 67H, Prothrombin Time 10.1, Prothromb Time International Ratio 1.0, Activated Partial Thromboplast Time 28, Sodium Level 134L, Potassium Level 4.0, Chloride Level 98 , Carbon Dioxide Level 30, Anion Gap 6, Blood Urea Nitrogen 15, Creatinine 0.5L , Estimat Glomerular Filtration Rate , Glucose Level 132H, Osmolality 283L, Uric Acid 1.9L, Calcium Level 8.8, Phosphorus Level 2.9, Magnesium Level 2.1, Total Bilirubin 0.8, Aspartate Amino Transf (AST/SGOT) 97H, Alanine Aminotransferase (ALT/SGPT) 80H, Alkaline Phosphatase 1476H, C-Reactive Protein , Quantitative 4.8H, Total Protein 5.3L, Albumin 1.6L, Globulin 3.7, Albumin/ Globulin Ratio 0.4L, Amylase Level 39, Lipase 279 Current Medications Medications (Trade) Dose Ordered Sig/Susana Route PRN Reason Start Time Stop Time Status Last Admin Dose Admin Acetaminophen (Tylenol) 500 mg Q4H PRN ORAL Mild Pain/Temp > 100.5 06/23/18 11:30 07/17/18 11:29 06/23/18 16:06 Bisacodyl (Dulcolax) 10 mg DAILY ORAL 06/24/18 09:00 07/20/18 08:59 06/24/18 10:49 Diatrizoate Meglum/ Diatrizoate Sod (Gastrografin) 30 ml NOW PRN ORAL Radiology Procedure 06/23/18 18:45 06/24/18 23:59 Docusate Sodium (Colace) 100 mg TWICE A DAY ORAL 06/23/18 18:00 07/19/18 18:59 06/24/18 10:48 Fluconazole (Diflucan) 100 mg DAILY ORAL 06/24/18 09:00 06/27/18 11:59 06/24/18 10:48 Furosemide (Lasix) 20 mg Q8HR IV 06/24/18 14:00 07/18/18 08:59 Heparin Sodium (Porcine) (Heparin 5000 units/ml) 5,000 units EVERY 12 HOURS SUBQ 06/23/18 21:00 07/21/18 08:59 06/24/18 10:50 Iopamidol (Isovue-300 100ml) 100 ml NOW PRN INJ Radiology Procedure 06/23/18 18:45 06/24/18 18:44 Magnesium Hydroxide (Mom) 30 ml Q4H PRN ORAL Constipation 06/23/18 14:30 07/19/18 18:29 Morphine Sulfate (Morphine Sulfate) 2 mg Q4H PRN IVP Moderate Pain (Pain Scale 4-6) 06/23/18 13:00 06/25/18 16:46 Morphine Sulfate (Morphine Sulfate) 4 mg Q4H PRN IVP Severe Pain (Pain Scale 7-10) 06/23/18 13:00 06/25/18 16:46 Pantoprazole (Protonix) 40 mg DAILY ORAL 06/24/18 09:00 07/18/18 08:59 06/24/18 10:49 Piperacillin Sod/ Tazobactam Sod 3.375 gm/Sodium Chloride 110 ml @ 27.5 mls/hr EVERY 8 HOURS IVPB 06/23/18 14:00 06/28/18 13:59 06/24/18 05:59 Potassium Chloride (K-Dur) 40 meq TWICE A DAY ORAL 06/23/18 18:00 07/18/18 17:59 06/24/18 10:48 Sodium Chloride 250 ml @ 30 mls/hr ONCE IV 06/24/18 15:00 06/24/18 23:59 Zolpidem Tartrate (Ambien) 5 mg HSPRN PRN ORAL Insomnia 06/23/18 12:00 06/28/18 11:59 06/23/18 20:47 Subjective ROS Limited/Unobtainable: No Allergies: Coded Allergies: No Known Allergies (Unverified , 06/17/18) Objective Last 24 Hour Vital Signs Date Time Temp Pulse Resp B/P (MAP) Pulse Ox O2 Delivery O2 Flow Rate FiO2 06/26/18 20:45 Nasal Cannula 2.0 28 06/26/18 20:45 98 Nasal Cannula 2.0 28 06/26/18 16:00 97.5 111 20 121/83 (96) 98 06/26/18 12:00 97.9 113 19 131/87 (102) 97 06/26/18 09:00 Nasal Cannula 2.0 Nasal Cannula 2.0 06/26/18 08:00 98.1 113 20 130/91 (104) 95 06/26/18 04:00 97.6 107 18 137/93 (108) 98 06/26/18 00:00 98.8 106 18 130/88 (102) 96 Intake and Output 06/25/18 06/26/18 19:00 07:00 Intake Total 292.5 ml 360 ml Output Total 650 ml 415 ml Balance -357.5 ml -55 ml Intake Oral 100 ml 360 ml IV Total 192.5 ml Output Urine Total 650 ml 400 ml Other 15 ml Microbiology Date/Time Source Procedure Growth Status 06/25/18 16:23 Body Fluid Gram Stain - Final Resulted 06/25/18 16:23 Body Fluid Body Fluid Culture - Preliminary NO GROWTH Resulted Current Medications Medications (Trade) Dose Ordered Sig/Susana Route PRN Reason Start Time Stop Time Status Last Admin Dose Admin Acetaminophen (Tylenol) 500 mg Q4H PRN ORAL Mild Pain/Temp > 100.5 06/23/18 11:30 07/17/18 11:29 06/23/18 16:06 Bisacodyl (Dulcolax) 10 mg DAILY ORAL 06/24/18 09:00 07/20/18 08:59 06/26/18 09:57 Docusate Sodium (Colace) 100 mg TWICE A DAY ORAL 06/23/18 18:00 07/19/18 18:59 06/26/18 17:12 Fluconazole (Diflucan) 100 mg DAILY ORAL 06/24/18 09:00 06/27/18 11:59 06/26/18 09:57 Furosemide (Lasix) 20 mg DAILY IV 06/26/18 09:00 07/18/18 08:59 06/26/18 09:58 Heparin Sodium (Porcine) (Heparin 5000 units/ml) 5,000 units EVERY 12 HOURS SUBQ 06/23/18 21:00 07/21/18 08:59 06/26/18 09:59 Magnesium Hydroxide (Mom) 30 ml Q4H PRN ORAL Constipation 06/23/18 14:30 07/19/18 18:29 Morphine Sulfate (Morphine Sulfate) 2 mg Q4H PRN IVP Moderate Pain (Pain Scale 4-6) 06/25/18 09:19 06/27/18 09:18 Morphine Sulfate (Morphine Sulfate) 4 mg Q4H PRN IVP Severe Pain (Pain Scale 7-10) 06/25/18 09:19 06/27/18 09:18 Pantoprazole (Protonix) 40 mg DAILY ORAL 06/24/18 09:00 07/18/18 08:59 06/26/18 09:58 Piperacillin Sod/ Tazobactam Sod 3.375 gm/Sodium Chloride 110 ml @ 27.5 mls/hr EVERY 8 HOURS IVPB 06/23/18 14:00 06/28/18 13:59 06/26/18 13:35 Potassium Chloride (K-Dur) 40 meq TWICE A DAY ORAL 06/23/18 18:00 07/18/18 17:59 06/26/18 17:13 Zolpidem Tartrate (Ambien) 5 mg HSPRN PRN ORAL Insomnia 06/23/18 12:00 06/28/18 11:59 06/24/18 21:30 Faisal Beltre MD Jun 26, 2018 21:11
[2018-06-26] MEDS: Zolpidem 5mg tab ORAL PRN (21:47)
[2018-06-27] VITALS: BP 131/76
[2018-06-27 04:00] VITALS: BP 128/81
[2018-06-27] MEDS: Piperacillin/Tazobactam 3.375 GM in NS 110 ML IVPB SCH ×3 (06:04→21:11)
[2018-06-27 07:09] LABS: BASOPHILS % (AUTO) 0.5 % (0.0-2.0); EOSINOPHILS % (AUTO) 0.4 % (0.0-3.0); HEMATOCRIT 32.4 % (37.0-47.0); HEMOGLOBIN 10.7 G/DL (12.0-16.0); LYMPHOCYTES % (AUTO) 11.7 % (20.0-45.0); MEAN CORPUSCULAR VOLUME 90 FL (80-99); NEUTROPHILS % (AUTO) 79.5 % (45.0-75.0); PLATELET COUNT 562 K/UL (150-450); RED CELL DISTRIBUTION WIDTH 14.6 % (11.6-14.8); WHITE BLOOD COUNT 9.2 K/UL (4.8-10.8)
--- NOTE | 2018-06-27 07:28 | NUR ---
NURSE NOTES: Received report from SCOOBY Escalera. Patient a/o x 4 lying on the bed. No respiratory distress noted and denies any pain at this time. Cholecystectomy tube on right flank site dressing is dry and intact. Will irrigate for my shift. Patient wants to get warm water and was given. Questions answered. Call light within reach, Bed in lowest position. Will continue to monitor.
--- NOTE | 2018-06-27 07:28 | NUR ---
HAND-OFF: Report given to MIGUEL MILLER R.N. Patient in stable condition.
[2018-06-27 07:35] LABS: ALANINE AMINOTRANSFERASE 114 U/L (12-78); ALBUMIN 1.7 G/DL (3.4-5.0); ALBUMIN/GLOBULIN RATIO 0.4 (1.0-2.7); ALKALINE PHOSPHATASE 1541 U/L (46-116); ANION GAP 6 mmol/L (5-15); ASPARTATE AMINO TRANSFERASE 157 U/L (15-37); BILIRUBIN,TOTAL 0.8 MG/DL (0.2-1.0); BLOOD UREA NITROGEN 22 mg/dL (7-18); CALCIUM 8.7 MG/DL (8.5-10.1); CARBON DIOXIDE 29 MMOL/L (21-32); CHLORIDE 101 MMOL/L (98-107); CREATININE 0.5 MG/DL (0.55-1.30); POTASSIUM 4.1 MMOL/L (3.5-5.1); SODIUM 135 MMOL/L (136-145)
[2018-06-27 08:00] VITALS: BP 136/80
[2018-06-27] MEDS: Docusate 100mg cap ORAL SCH ×2 (08:50→18:24)
[2018-06-27] MEDS: Bisacodyl EC 5mg tab ORAL SCH (08:50)
[2018-06-27] MEDS: Fluconazole 100mg tab ORAL SCH (08:50)
[2018-06-27] MEDS: Heparin 5000 units/ml inj SUBQ SCH ×2 (08:51→21:12)
--- NOTE | 2018-06-27 10:50 | General Progress Note ---
Assessment/Plan Problem List: (1) Cancer, metastatic ICD Codes: C79.9 - Secondary malignant neoplasm of unspecified site SNOMED: 825598901 (2) Cirrhosis ICD Codes: K74.60 - Unspecified cirrhosis of liver SNOMED: 77426660 (3) Cholecystitis ICD Codes: K81.9 - Cholecystitis, unspecified SNOMED: 47613521 (4) Hypoalbuminemia ICD Codes: E88.09 - Other disorders of plasma-protein metabolism, not elsewhere classified SNOMED: 611005000 (5) Pleural effusion ICD Codes: J90 - Pleural effusion, not elsewhere classified SNOMED: 87389905 (6) Respiratory distress ICD Codes: R06.03 - Acute respiratory distress SNOMED: 081486616 (7) Ovarian carcinoma ICD Codes: C56.9 - Malignant neoplasm of unspecified ovary SNOMED: 770287781 Qualifiers: Qualified Codes: C56.9 - Malignant neoplasm of unspecified ovary Assessment/Plan CT and MRCP reviewed surg input appreciated no plans for ERCP given no dilated duct and poor prognosis s/p cholecystostomy tube fu labs abx supportive care Subjective ROS Limited/Unobtainable: No Allergies: Coded Allergies: No Known Allergies (Unverified , 06/17/18) Objective Last 24 Hour Vital Signs Date Time Temp Pulse Resp B/P (MAP) Pulse Ox O2 Delivery O2 Flow Rate FiO2 06/27/18 09:00 Nasal Cannula 2.0 Nasal Cannula 2.0 06/27/18 08:00 97.2 89 19 136/80 (98) 99 06/27/18 04:00 97.2 92 18 128/81 (97) 97 06/27/18 00:00 98.6 100 20 131/76 (94) 98 06/26/18 21:00 Nasal Cannula 2.0 Nasal Cannula 2.0 06/26/18 20:45 Nasal Cannula 2.0 28 06/26/18 20:45 98 Nasal Cannula 2.0 28 06/26/18 20:00 97.8 94 20 128/83 (98) 98 06/26/18 16:00 97.5 111 20 121/83 (96) 98 06/26/18 12:00 97.9 113 19 131/87 (102) 97 Intake and Output 06/26/18 06/27/18 18:59 06:59 Intake Total 200 ml 640.0 ml Output Total 1000 ml 250 ml Balance -800 ml 390.0 ml Intake Oral 200 ml 530 ml IV Total 110.0 ml Output Urine Total 1000 ml 250 ml Other 0 ml 0 ml Laboratory Tests 06/27/18 05:00: White Blood Count 9.2, Red Blood Count 3.60L, Hemoglobin 10.7L, Hematocrit 32.4L , Mean Corpuscular Volume 90, Mean Corpuscular Hemoglobin 29.8, Mean Corpuscular Hemoglobin Concent 33.1, Red Cell Distribution Width 14.6, Platelet Count 562H, Mean Platelet Volume 4.7L, Neutrophils (%) (Auto) 79.5H, Lymphocytes (%) (Auto) 11.7L, Monocytes (%) (Auto) 8.0, Eosinophils (%) (Auto) 0.4, Basophils (%) (Auto) 0.5, Sodium Level 135L, Potassium Level 4.1, Chloride Level 101, Carbon Dioxide Level 29, Anion Gap 6, Blood Urea Nitrogen 22H, Creatinine 0.5L, Estimat Glomerular Filtration Rate , Glucose Level 149H, Calcium Level 8.7, Total Bilirubin 0.8, Aspartate Amino Transf (AST/SGOT) 157H, Alanine Aminotransferase (ALT/SGPT) 114H, Alkaline Phosphatase 1541H, Total Protein 5.5L, Albumin 1.7L, Globulin 3.8, Albumin/Globulin Ratio 0.4L Height (Feet): 5 Height (Inches): 2.00 Weight (Pounds): 126 General Appearance: no apparent distress EENT: normal ENT inspection Neck: supple Cardiovascular: normal rate Respiratory/Chest: decreased breath sounds Abdomen: normal bowel sounds, non tender, soft Extremities: non-tender Tramaine Miller MD Jun 27, 2018 10:50
--- NOTE | 2018-06-27 11:00 | NUR ---
NURSE NOTES: Cholecystostomy tube 10 cc NS irrigation was done by RN.
--- NOTE | 2018-06-27 11:30 | NUR ---
CASE MANAGEMENT: REVIEW 06/27/2018 SI: RESP DISTRESS, S/P THORACENTESIS T 97.2 HR 89 RR 19 B/P 136/80 SATS 99% ON 2L/NC NA 135 BUN 22 CR 0.5 GLU 149 AST 157 ALT 114 ALP 1541 IS: ZOSYN IV LASIX IV DIFLUCAN PO PROTONIX PO MED/SURG STATUS
[2018-06-27 12:00] VITALS: BP 115/81
--- NOTE | 2018-06-27 13:31 | Nephrology Progress Note ---
Assessment/Plan Problem List: (1) Pleural effusion (2) Respiratory distress (3) Ovarian carcinoma (4) Hyponatremia (5) Hypoalbuminemia Assessment HypoNatremia due to Edematous state HypoAlbuminemia and proteinuria Respiratory distress Pleural effusion likely malignant ascitis Ovarian carcinoma Plan labs reviewed , Na 135 landeros thoracentesis 24 h urine protein noted coreg stopped by Dr Man ! monitor labs low dose lasix k supplement Subjective ROS Limited/Unobtainable: No Constitutional: Reports: malaise Objective Objective Last 24 Hour Vital Signs Date Time Temp Pulse Resp B/P (MAP) Pulse Ox O2 Delivery O2 Flow Rate FiO2 06/27/18 12:00 97.9 92 18 115/81 (92) 99 06/27/18 09:00 Nasal Cannula 2.0 Nasal Cannula 2.0 06/27/18 08:00 97.2 89 19 136/80 (98) 99 06/27/18 04:00 97.2 92 18 128/81 (97) 97 06/27/18 00:00 98.6 100 20 131/76 (94) 98 06/26/18 21:00 Nasal Cannula 2.0 Nasal Cannula 2.0 06/26/18 20:45 Nasal Cannula 2.0 28 06/26/18 20:45 98 Nasal Cannula 2.0 28 06/26/18 20:00 97.8 94 20 128/83 (98) 98 06/26/18 16:00 97.5 111 20 121/83 (96) 98 Intake and Output 06/26/18 06/27/18 18:59 06:59 Intake Total 200 ml 640.0 ml Output Total 1000 ml 250 ml Balance -800 ml 390.0 ml Intake Oral 200 ml 530 ml IV Total 110.0 ml Output Urine Total 1000 ml 250 ml Other 0 ml 0 ml Laboratory Tests 06/27/18 05:00: White Blood Count 9.2, Red Blood Count 3.60L, Hemoglobin 10.7L, Hematocrit 32.4L , Mean Corpuscular Volume 90, Mean Corpuscular Hemoglobin 29.8, Mean Corpuscular Hemoglobin Concent 33.1, Red Cell Distribution Width 14.6, Platelet Count 562H, Mean Platelet Volume 4.7L, Neutrophils (%) (Auto) 79.5H, Lymphocytes (%) (Auto) 11.7L, Monocytes (%) (Auto) 8.0, Eosinophils (%) (Auto) 0.4, Basophils (%) (Auto) 0.5, Sodium Level 135L, Potassium Level 4.1, Chloride Level 101, Carbon Dioxide Level 29, Anion Gap 6, Blood Urea Nitrogen 22H, Creatinine 0.5L, Estimat Glomerular Filtration Rate , Glucose Level 149H, Calcium Level 8.7, Total Bilirubin 0.8, Aspartate Amino Transf (AST/SGOT) 157H, Alanine Aminotransferase (ALT/SGPT) 114H, Alkaline Phosphatase 1541H, Total Protein 5.5L, Albumin 1.7L, Globulin 3.8, Albumin/Globulin Ratio 0.4L Height (Feet): 5 Height (Inches): 2.00 Weight (Pounds): 126 General Appearance: no apparent distress Objective no change Jae Walker MD Jun 27, 2018 13:31
--- NOTE | 2018-06-27 13:59 | Pulmonology Progress Note ---
Assessment/Plan Assessment/Plan Pulmonary Progress Note Assessment/Plan Problem List: 1. Shortness of breath 2. Large bilateral pleural effusions - s/p R thoracentesis 800 cc 06/18 3. Ovarian cancer s/p resection with likely malignant ascites and presumed malignant effusions 4. Protein calorie malnutrition 5. Abdominal pain - acute cholecysitis Plan: -f/u MRCP results -may need cholecystostomy tube -repeat thoracentesis for now but will move forward with pleurx catheter placement once issues with gallbladder settled -f/u cytology of R thoracentesis -monitor volumes -pain control Subjective ROS Limited/Unobtainable: Yes Interval Events: Concern for cholecystitis and s/p MRCP. CXR with b/l effusions Allergies: Coded Allergies: No Known Allergies (Unverified , 06/17/18) Objective Vital Signs Noted General Appearance: no acute distress HEENT: mucous membranes moist Respiratory/Chest: decreased breath sounds Cardiovascular: regular rhythm Abdomen: distended, tender Extremities: no edema Neurologic/Psychiatric: responsive Laboratory Tests 06/24/18 05:41: White Blood Count 10.8, Red Blood Count 3.69L, Hemoglobin 11.1L, Hematocrit 33.1L, Mean Corpuscular Volume 90, Mean Corpuscular Hemoglobin 30.0, Mean Corpuscular Hemoglobin Concent 33.4, Red Cell Distribution Width 14.7, Platelet Count 770H, Mean Platelet Volume 4.6L, Neutrophils (%) (Auto) 83.8H, Lymphocytes (%) (Auto) 9.0L, Monocytes (%) (Auto) 5.8, Eosinophils (%) (Auto) 0.4, Basophils (%) (Auto) 1.0, Erythrocyte Sedimentation Rate 67H, Prothrombin Time 10.1, Prothromb Time International Ratio 1.0, Activated Partial Thromboplast Time 28, Sodium Level 134L, Potassium Level 4.0, Chloride Level 98 , Carbon Dioxide Level 30, Anion Gap 6, Blood Urea Nitrogen 15, Creatinine 0.5L , Estimat Glomerular Filtration Rate , Glucose Level 132H, Osmolality 283L, Uric Acid 1.9L, Calcium Level 8.8, Phosphorus Level 2.9, Magnesium Level 2.1, Total Bilirubin 0.8, Aspartate Amino Transf (AST/SGOT) 97H, Alanine Aminotransferase (ALT/SGPT) 80H, Alkaline Phosphatase 1476H, C-Reactive Protein , Quantitative 4.8H, Total Protein 5.3L, Albumin 1.6L, Globulin 3.7, Albumin/ Globulin Ratio 0.4L, Amylase Level 39, Lipase 279 Current Medications Medications (Trade) Dose Ordered Sig/Susana Route PRN Reason Start Time Stop Time Status Last Admin Dose Admin Acetaminophen (Tylenol) 500 mg Q4H PRN ORAL Mild Pain/Temp > 100.5 06/23/18 11:30 07/17/18 11:29 06/23/18 16:06 Bisacodyl (Dulcolax) 10 mg DAILY ORAL 06/24/18 09:00 07/20/18 08:59 06/24/18 10:49 Diatrizoate Meglum/ Diatrizoate Sod (Gastrografin) 30 ml NOW PRN ORAL Radiology Procedure 06/23/18 18:45 06/24/18 23:59 Docusate Sodium (Colace) 100 mg TWICE A DAY ORAL 06/23/18 18:00 07/19/18 18:59 06/24/18 10:48 Fluconazole (Diflucan) 100 mg DAILY ORAL 06/24/18 09:00 06/27/18 11:59 06/24/18 10:48 Furosemide (Lasix) 20 mg Q8HR IV 06/24/18 14:00 07/18/18 08:59 Heparin Sodium (Porcine) (Heparin 5000 units/ml) 5,000 units EVERY 12 HOURS SUBQ 06/23/18 21:00 07/21/18 08:59 06/24/18 10:50 Iopamidol (Isovue-300 100ml) 100 ml NOW PRN INJ Radiology Procedure 06/23/18 18:45 06/24/18 18:44 Magnesium Hydroxide (Mom) 30 ml Q4H PRN ORAL Constipation 06/23/18 14:30 07/19/18 18:29 Morphine Sulfate (Morphine Sulfate) 2 mg Q4H PRN IVP Moderate Pain (Pain Scale 4-6) 06/23/18 13:00 06/25/18 16:46 Morphine Sulfate (Morphine Sulfate) 4 mg Q4H PRN IVP Severe Pain (Pain Scale 7-10) 06/23/18 13:00 06/25/18 16:46 Pantoprazole (Protonix) 40 mg DAILY ORAL 06/24/18 09:00 07/18/18 08:59 06/24/18 10:49 Piperacillin Sod/ Tazobactam Sod 3.375 gm/Sodium Chloride 110 ml @ 27.5 mls/hr EVERY 8 HOURS IVPB 06/23/18 14:00 06/28/18 13:59 06/24/18 05:59 Potassium Chloride (K-Dur) 40 meq TWICE A DAY ORAL 06/23/18 18:00 07/18/18 17:59 06/24/18 10:48 Sodium Chloride 250 ml @ 30 mls/hr ONCE IV 06/24/18 15:00 06/24/18 23:59 Zolpidem Tartrate (Ambien) 5 mg HSPRN PRN ORAL Insomnia 06/23/18 12:00 06/28/18 11:59 06/23/18 20:47 Subjective ROS Limited/Unobtainable: No Allergies: Coded Allergies: No Known Allergies (Unverified , 06/17/18) Objective Last 24 Hour Vital Signs Date Time Temp Pulse Resp B/P (MAP) Pulse Ox O2 Delivery O2 Flow Rate FiO2 06/27/18 12:00 97.9 92 18 115/81 (92) 99 06/27/18 09:00 Nasal Cannula 2.0 Nasal Cannula 2.0 06/27/18 08:00 97.2 89 19 136/80 (98) 99 06/27/18 04:00 97.2 92 18 128/81 (97) 97 06/27/18 00:00 98.6 100 20 131/76 (94) 98 06/26/18 21:00 Nasal Cannula 2.0 Nasal Cannula 2.0 06/26/18 20:45 Nasal Cannula 2.0 28 06/26/18 20:45 98 Nasal Cannula 2.0 28 06/26/18 20:00 97.8 94 20 128/83 (98) 98 06/26/18 16:00 97.5 111 20 121/83 (96) 98 Intake and Output 06/26/18 06/27/18 18:59 06:59 Intake Total 200 ml 640.0 ml Output Total 1000 ml 250 ml Balance -800 ml 390.0 ml Intake Oral 200 ml 530 ml IV Total 110.0 ml Output Urine Total 1000 ml 250 ml Other 0 ml 0 ml Microbiology Date/Time Source Procedure Growth Status 06/25/18 16:23 Body Fluid Gram Stain - Final Resulted 06/25/18 16:23 Body Fluid Body Fluid Culture - Preliminary NO GROWTH AFTER 24 HOURS Resulted Laboratory Tests 06/27/18 05:00: White Blood Count 9.2, Red Blood Count 3.60L, Hemoglobin 10.7L, Hematocrit 32.4L , Mean Corpuscular Volume 90, Mean Corpuscular Hemoglobin 29.8, Mean Corpuscular Hemoglobin Concent 33.1, Red Cell Distribution Width 14.6, Platelet Count 562H, Mean Platelet Volume 4.7L, Neutrophils (%) (Auto) 79.5H, Lymphocytes (%) (Auto) 11.7L, Monocytes (%) (Auto) 8.0, Eosinophils (%) (Auto) 0.4, Basophils (%) (Auto) 0.5, Sodium Level 135L, Potassium Level 4.1, Chloride Level 101, Carbon Dioxide Level 29, Anion Gap 6, Blood Urea Nitrogen 22H, Creatinine 0.5L, Estimat Glomerular Filtration Rate , Glucose Level 149H, Calcium Level 8.7, Total Bilirubin 0.8, Aspartate Amino Transf (AST/SGOT) 157H, Alanine Aminotransferase (ALT/SGPT) 114H, Alkaline Phosphatase 1541H, Total Protein 5.5L, Albumin 1.7L, Globulin 3.8, Albumin/Globulin Ratio 0.4L Current Medications Medications (Trade) Dose Ordered Sig/Susana Route PRN Reason Start Time Stop Time Status Last Admin Dose Admin Acetaminophen (Tylenol) 500 mg Q4H PRN ORAL Mild Pain/Temp > 100.5 06/23/18 11:30 07/17/18 11:29 06/23/18 16:06 Bisacodyl (Dulcolax) 10 mg DAILY ORAL 06/24/18 09:00 07/20/18 08:59 06/27/18 08:50 Docusate Sodium (Colace) 100 mg TWICE A DAY ORAL 06/23/18 18:00 07/19/18 18:59 06/27/18 08:50 Furosemide (Lasix) 20 mg DAILY IV 06/26/18 09:00 07/18/18 08:59 06/27/18 08:50 Heparin Sodium (Porcine) (Heparin 5000 units/ml) 5,000 units EVERY 12 HOURS SUBQ 06/23/18 21:00 07/21/18 08:59 06/27/18 08:51 Magnesium Hydroxide (Mom) 30 ml Q4H PRN ORAL Constipation 06/23/18 14:30 07/19/18 18:29 Pantoprazole (Protonix) 40 mg DAILY ORAL 06/24/18 09:00 07/18/18 08:59 06/27/18 08:50 Piperacillin Sod/ Tazobactam Sod 3.375 gm/Sodium Chloride 110 ml @ 27.5 mls/hr EVERY 8 HOURS IVPB 06/23/18 14:00 06/28/18 13:59 06/27/18 13:37 Potassium Chloride (K-Dur) 40 meq TWICE A DAY ORAL 06/23/18 18:00 07/18/18 17:59 06/27/18 08:50 Zolpidem Tartrate (Ambien) 5 mg HSPRN PRN ORAL Insomnia 06/23/18 12:00 06/28/18 11:59 06/26/18 21:47 Faisal Beltre MD Jun 27, 2018 13:59
[2018-06-27 16:00] VITALS: BP 119/78
--- NOTE | 2018-06-27 16:12 | Surgery Progress Note ---
Surgery Progress Note Subjective Additional Comments leukocytosis improving. drain with minimal output. micro noted. exam stable Objective Last 24 Hour Vital Signs Date Time Temp Pulse Resp B/P (MAP) Pulse Ox O2 Delivery O2 Flow Rate FiO2 06/27/18 12:00 97.9 92 18 115/81 (92) 99 06/27/18 09:00 Nasal Cannula 2.0 Nasal Cannula 2.0 06/27/18 08:00 97.2 89 19 136/80 (98) 99 06/27/18 04:00 97.2 92 18 128/81 (97) 97 06/27/18 00:00 98.6 100 20 131/76 (94) 98 06/26/18 21:00 Nasal Cannula 2.0 Nasal Cannula 2.0 06/26/18 20:45 Nasal Cannula 2.0 28 06/26/18 20:45 98 Nasal Cannula 2.0 28 06/26/18 20:00 97.8 94 20 128/83 (98) 98 I&O Intake and Output 06/26/18 06/27/18 18:59 06:59 Intake Total 200 ml 640.0 ml Output Total 1000 ml 250 ml Balance -800 ml 390.0 ml Intake Oral 200 ml 530 ml IV Total 110.0 ml Output Urine Total 1000 ml 250 ml Other 0 ml 0 ml Dressing: other Wound: other Drains: other Cardiovascular: RSR Respiratory: clear Abdomen: soft, non-tender, present bowel sounds Extremities: other Laboratory Tests Test 06/27/18 05:00 White Blood Count 9.2 K/UL (4.8-10.8) Red Blood Count 3.60 M/UL (4.20-5.40) L Hemoglobin 10.7 G/DL (12.0-16.0) L Hematocrit 32.4 % (37.0-47.0) L Mean Corpuscular Volume 90 FL (80-99) Mean Corpuscular Hemoglobin 29.8 PG (27.0-31.0) Mean Corpuscular Hemoglobin Concent 33.1 G/DL (32.0-36.0) Red Cell Distribution Width 14.6 % (11.6-14.8) Platelet Count 562 K/UL (150-450) H Mean Platelet Volume 4.7 FL (6.5-10.1) L Neutrophils (%) (Auto) 79.5 % (45.0-75.0) H Lymphocytes (%) (Auto) 11.7 % (20.0-45.0) L Monocytes (%) (Auto) 8.0 % (1.0-10.0) Eosinophils (%) (Auto) 0.4 % (0.0-3.0) Basophils (%) (Auto) 0.5 % (0.0-2.0) Sodium Level 135 MMOL/L (136-145) L Potassium Level 4.1 MMOL/L (3.5-5.1) Chloride Level 101 MMOL/L (98-107) Carbon Dioxide Level 29 MMOL/L (21-32) Anion Gap 6 mmol/L (5-15) Blood Urea Nitrogen 22 mg/dL (7-18) H Creatinine 0.5 MG/DL (0.55-1.30) L Estimat Glomerular Filtration Rate mL/min (>60) Glucose Level 149 MG/DL (74-106) H Calcium Level 8.7 MG/DL (8.5-10.1) Total Bilirubin 0.8 MG/DL (0.2-1.0) Aspartate Amino Transf (AST/SGOT) 157 U/L (15-37) H Alanine Aminotransferase (ALT/SGPT) 114 U/L (12-78) H Alkaline Phosphatase 1541 U/L (46-116) H Total Protein 5.5 G/DL (6.4-8.2) L Albumin 1.7 G/DL (3.4-5.0) L Globulin 3.8 g/dL Albumin/Globulin Ratio 0.4 (1.0-2.7) L Plan Problems: (1) Cholecystitis Assessment & Plan: acute cholecystitis ovarian cancer with mets complicated medical and surgical history Cholelithiasis and gallbladder wall thickening. Note that recent hepatobiliary nuclear scan is positive for acute cholecystitis. Given the nodular and irregular appearance of the gallbladder wall, possibly a gallbladder neoplasm should also be considered Unusual enhancement of the biliary ductal hernandez, raising concern for cholangitis. Correlate with clinical history and findings cholecystotomy tube placed - Successful percutaneous cholecystostomy under ultrasound and fluoroscopic guidance. Note that aspiration of the gallbladder yielded approximately 15 mL of darshan pus given above no surgery recommended. cont current care tube care will follow with recs as results available thank you (2) Abdominal pain Rich Kiran Jun 27, 2018 16:12
--- NOTE | 2018-06-27 18:44 | General Progress Note ---
Assessment/Plan Problem List: (1) Ovarian carcinoma ICD Codes: C56.9 - Malignant neoplasm of unspecified ovary SNOMED: 735089933 Qualifiers: Qualified Codes: C56.9 - Malignant neoplasm of unspecified ovary (2) Respiratory distress ICD Codes: R06.03 - Acute respiratory distress SNOMED: 489785479 (3) Pleural effusion ICD Codes: J90 - Pleural effusion, not elsewhere classified SNOMED: 29463536 (4) Hypoalbuminemia ICD Codes: E88.09 - Other disorders of plasma-protein metabolism, not elsewhere classified SNOMED: 452141963 Status: progressing Assessment/Plan acute cholycystitis pleural effusion s/p resent ovarian removal and hysterectomy tube per IR still has abdominal pain mets ca Subjective ROS Limited/Unobtainable: Yes Allergies: Coded Allergies: No Known Allergies (Unverified , 06/17/18) Subjective sob Objective Last 24 Hour Vital Signs Date Time Temp Pulse Resp B/P (MAP) Pulse Ox O2 Delivery O2 Flow Rate FiO2 06/27/18 12:00 97.9 92 18 115/81 (92) 99 06/27/18 09:00 Nasal Cannula 2.0 Nasal Cannula 2.0 06/27/18 08:00 97.2 89 19 136/80 (98) 99 06/27/18 04:00 97.2 92 18 128/81 (97) 97 06/27/18 00:00 98.6 100 20 131/76 (94) 98 06/26/18 21:00 Nasal Cannula 2.0 Nasal Cannula 2.0 06/26/18 20:45 Nasal Cannula 2.0 28 06/26/18 20:45 98 Nasal Cannula 2.0 28 06/26/18 20:00 97.8 94 20 128/83 (98) 98 Intake and Output 06/26/18 06/27/18 19:00 07:00 Intake Total 200 ml 640.0 ml Output Total 1000 ml 250 ml Balance -800 ml 390.0 ml Intake Oral 200 ml 530 ml IV Total 110.0 ml Output Urine Total 1000 ml 250 ml Other 0 ml 0 ml Laboratory Tests 06/27/18 05:00: White Blood Count 9.2, Red Blood Count 3.60L, Hemoglobin 10.7L, Hematocrit 32.4L , Mean Corpuscular Volume 90, Mean Corpuscular Hemoglobin 29.8, Mean Corpuscular Hemoglobin Concent 33.1, Red Cell Distribution Width 14.6, Platelet Count 562H, Mean Platelet Volume 4.7L, Neutrophils (%) (Auto) 79.5H, Lymphocytes (%) (Auto) 11.7L, Monocytes (%) (Auto) 8.0, Eosinophils (%) (Auto) 0.4, Basophils (%) (Auto) 0.5, Sodium Level 135L, Potassium Level 4.1, Chloride Level 101, Carbon Dioxide Level 29, Anion Gap 6, Blood Urea Nitrogen 22H, Creatinine 0.5L, Estimat Glomerular Filtration Rate , Glucose Level 149H, Calcium Level 8.7, Total Bilirubin 0.8, Aspartate Amino Transf (AST/SGOT) 157H, Alanine Aminotransferase (ALT/SGPT) 114H, Alkaline Phosphatase 1541H, Total Protein 5.5L, Albumin 1.7L, Globulin 3.8, Albumin/Globulin Ratio 0.4L Height (Feet): 5 Height (Inches): 2.00 Weight (Pounds): 126 Neck: supple Cardiovascular: normal rate Respiratory/Chest: lungs clear Abdomen: soft Vane Stephenson MD Jun 27, 2018 18:44
--- NOTE | 2018-06-27 19:32 | NUR ---
HAND-OFF: Report given to KOFI Pagan. Patient in stable condition.
[2018-06-27 20:00] VITALS: BP 125/80
--- NOTE | 2018-06-27 21:59 | Cardiology Progress Note ---
Assessment/Plan Assessment/Plan 1. Sinus tachycardia, likely due to sepsis, low intravascular volume depletion due to low oncotic pressure, or tumor burden. 2. B/L pleural effusion, s/p thoracentesis 3. Metastatic ovarian cancer 4. FTT 5. Respiratory failure. 6. Encephalopathy 7. Moderate pulmonary HTN. 8. Sepsis, s/p cholecystostomy. Subjective Subjective No cardiac events is reported. Clinically the same. Objective Last 24 Hour Vital Signs Date Time Temp Pulse Resp B/P (MAP) Pulse Ox O2 Delivery O2 Flow Rate FiO2 06/27/18 21:00 Nasal Cannula 2.0 Nasal Cannula 2.0 06/27/18 20:00 97.5 98 18 125/80 (95) 96 06/27/18 16:00 97.8 98 18 119/78 (92) 99 06/27/18 12:00 97.9 92 18 115/81 (92) 99 06/27/18 09:00 Nasal Cannula 2.0 Nasal Cannula 2.0 06/27/18 08:00 97.2 89 19 136/80 (98) 99 06/27/18 04:00 97.2 92 18 128/81 (97) 97 06/27/18 00:00 98.6 100 20 131/76 (94) 98 Intake and Output 06/26/18 06/27/18 19:00 07:00 Intake Total 200 ml 640.0 ml Output Total 1000 ml 250 ml Balance -800 ml 390.0 ml Intake Oral 200 ml 530 ml IV Total 110.0 ml Output Urine Total 1000 ml 250 ml Other 0 ml 0 ml 2D Echo: LVEF 65%, Grade I LVDD, pleural effusion, RVSP 48 mmHg Laboratory Tests Test 06/27/18 05:00 White Blood Count 9.2 K/UL (4.8-10.8) Red Blood Count 3.60 M/UL (4.20-5.40) L Hemoglobin 10.7 G/DL (12.0-16.0) L Hematocrit 32.4 % (37.0-47.0) L Mean Corpuscular Volume 90 FL (80-99) Mean Corpuscular Hemoglobin 29.8 PG (27.0-31.0) Mean Corpuscular Hemoglobin Concent 33.1 G/DL (32.0-36.0) Red Cell Distribution Width 14.6 % (11.6-14.8) Platelet Count 562 K/UL (150-450) H Mean Platelet Volume 4.7 FL (6.5-10.1) L Neutrophils (%) (Auto) 79.5 % (45.0-75.0) H Lymphocytes (%) (Auto) 11.7 % (20.0-45.0) L Monocytes (%) (Auto) 8.0 % (1.0-10.0) Eosinophils (%) (Auto) 0.4 % (0.0-3.0) Basophils (%) (Auto) 0.5 % (0.0-2.0) Sodium Level 135 MMOL/L (136-145) L Potassium Level 4.1 MMOL/L (3.5-5.1) Chloride Level 101 MMOL/L (98-107) Carbon Dioxide Level 29 MMOL/L (21-32) Anion Gap 6 mmol/L (5-15) Blood Urea Nitrogen 22 mg/dL (7-18) H Creatinine 0.5 MG/DL (0.55-1.30) L Estimat Glomerular Filtration Rate mL/min (>60) Glucose Level 149 MG/DL (74-106) H Calcium Level 8.7 MG/DL (8.5-10.1) Total Bilirubin 0.8 MG/DL (0.2-1.0) Aspartate Amino Transf (AST/SGOT) 157 U/L (15-37) H Alanine Aminotransferase (ALT/SGPT) 114 U/L (12-78) H Alkaline Phosphatase 1541 U/L (46-116) H Total Protein 5.5 G/DL (6.4-8.2) L Albumin 1.7 G/DL (3.4-5.0) L Globulin 3.8 g/dL Albumin/Globulin Ratio 0.4 (1.0-2.7) L Microbiology Date/Time Source Procedure Growth Status 06/25/18 16:23 Body Fluid Gram Stain - Final Resulted 06/25/18 16:23 Body Fluid Body Fluid Culture - Preliminary NO GROWTH AFTER 24 HOURS Resulted Objective HEENT: Atraumatic and normocephalic. Anicteric. Pupils are equal, round, and reactive to light and accommodation. Extraocular muscles intact. NECK: JVP less than 5 cm. No carotid bruit. Carotid upstrokes 2+ bilaterally. CARDIOVASCULAR: Normal S1, S2. Regular rate and rhythm. Tachycardic. No murmurs, gallops, or rubs. LUNGS: Diminished breath sounds in both bases. ABDOMEN: Soft, nontender, and nondistended. No hepatosplenomegaly. Positive bowel sounds. An abdominal incision site is clean. EXTREMITIES: No evidence of edema, clubbing, or cyanosis. Andrew Man MD Jun 27, 2018 21:59
[2018-06-27] MEDS: Zolpidem 5mg tab ORAL PRN (22:38)
--- NOTE | 2018-06-27 23:00 | NUR ---
NURSE NOTES: Irrigated cholecystostomy tube with 10cc NS as ordered by .
[2018-06-28 04:00] VITALS: BP 126/84
[2018-06-28] MEDS: Piperacillin/Tazobactam 3.375 GM in NS 110 ML IVPB SCH (05:42)
[2018-06-28 06:33] LABS: HEMATOCRIT 35.6 % (37.0-47.0); HEMOGLOBIN 11.5 G/DL (12.0-16.0); LYMPHOCYTES % (AUTO) 10.1 % (20.0-45.0); MEAN CORPUSCULAR VOLUME 90 FL (80-99); MONOCYTES % (AUTO) 8.6 % (1.0-10.0); NEUTROPHILS % (AUTO) 79.2 % (45.0-75.0); PLATELET COUNT 554 K/UL (150-450); RED BLOOD COUNT 3.96 M/UL (4.20-5.40)
[2018-06-28 06:56] LABS: ALANINE AMINOTRANSFERASE 131 U/L (12-78); ALBUMIN 1.7 G/DL (3.4-5.0); ALBUMIN/GLOBULIN RATIO 0.4 (1.0-2.7); ALKALINE PHOSPHATASE 1589 U/L (46-116); ANION GAP 6 mmol/L (5-15); ASPARTATE AMINO TRANSFERASE 175 U/L (15-37); BILIRUBIN,TOTAL 0.8 MG/DL (0.2-1.0); BLOOD UREA NITROGEN 20 mg/dL (7-18); CALCIUM 8.7 MG/DL (8.5-10.1); CARBON DIOXIDE 27 MMOL/L (21-32); CHLORIDE 101 MMOL/L (98-107); CREATININE 0.4 MG/DL (0.55-1.30); POTASSIUM 4.5 MMOL/L (3.5-5.1); SODIUM 134 MMOL/L (136-145)
--- NOTE | 2018-06-28 07:06 | NUR ---
HAND-OFF: Report given to KOFI Anderson.
--- NOTE | 2018-06-28 07:10 | NUR ---
NURSE NOTES: Received patient in bed, a&ox4, Sinhala speaking, on o2 via NC @ 2LPM. No s/s of acute distress & no c/o pain at this time. [place] intact draining yellow urine output to gravity. Uresil cath to drainage. IV site x2 intact, no s/s of infiltration. Bed in lowest position, call light within reach. Will continue to monitor.
[2018-06-28 08:00] VITALS: BP 118/83
[2018-06-28] MEDS: Bisacodyl EC 5mg tab ORAL SCH (08:37)
[2018-06-28] MEDS: Docusate 100mg cap ORAL SCH ×2 (08:37→17:31)
[2018-06-28] MEDS: Heparin 5000 units/ml inj SUBQ SCH ×2 (08:38→21:00)
--- NOTE | 2018-06-28 10:00 | NUR ---
NURSE NOTES: Patient able to turn. Skin intact.
--- NOTE | 2018-06-28 11:06 | General Progress Note ---
Assessment/Plan Problem List: (1) Cancer, metastatic ICD Codes: C79.9 - Secondary malignant neoplasm of unspecified site SNOMED: 482673723 (2) Cirrhosis ICD Codes: K74.60 - Unspecified cirrhosis of liver SNOMED: 35512966 (3) Cholecystitis ICD Codes: K81.9 - Cholecystitis, unspecified SNOMED: 22423431 (4) Hypoalbuminemia ICD Codes: E88.09 - Other disorders of plasma-protein metabolism, not elsewhere classified SNOMED: 100308852 (5) Pleural effusion ICD Codes: J90 - Pleural effusion, not elsewhere classified SNOMED: 82634619 (6) Respiratory distress ICD Codes: R06.03 - Acute respiratory distress SNOMED: 178021873 (7) Ovarian carcinoma ICD Codes: C56.9 - Malignant neoplasm of unspecified ovary SNOMED: 918534704 Qualifiers: Qualified Codes: C56.9 - Malignant neoplasm of unspecified ovary Assessment/Plan CT and MRCP reviewed surg input appreciated no plans for ERCP given no dilated duct and poor prognosis s/p cholecystostomy tube fu labs abx supportive care Subjective ROS Limited/Unobtainable: No Allergies: Coded Allergies: No Known Allergies (Unverified , 06/17/18) Objective Last 24 Hour Vital Signs Date Time Temp Pulse Resp B/P (MAP) Pulse Ox O2 Delivery O2 Flow Rate FiO2 06/28/18 09:00 Nasal Cannula 2.0 Nasal Cannula 2.0 06/28/18 08:00 97.3 98 18 118/83 (95) 98 06/28/18 07:13 Nasal Cannula 2.0 28 06/28/18 07:13 97 Nasal Cannula 2.0 28 06/28/18 04:00 97.8 97 17 126/84 (98) 98 06/27/18 21:00 Nasal Cannula 2.0 Nasal Cannula 2.0 06/27/18 20:00 97.5 98 18 125/80 (95) 96 06/27/18 16:00 97.8 98 18 119/78 (92) 99 06/27/18 12:00 97.9 92 18 115/81 (92) 99 Intake and Output 06/27/18 06/28/18 19:00 07:00 Intake Total 922.5 ml 240 ml Output Total 900 ml 525 ml Balance 22.5 ml -285 ml Intake Oral 730 ml 240 ml IV Total 192.5 ml Output Urine Total 900 ml 500 ml Other 25 ml Laboratory Tests 06/28/18 04:45: White Blood Count 9.0, Red Blood Count 3.96L, Hemoglobin 11.5L, Hematocrit 35.6L , Mean Corpuscular Volume 90, Mean Corpuscular Hemoglobin 29.1, Mean Corpuscular Hemoglobin Concent 32.4, Red Cell Distribution Width 15.0H, Platelet Count 554H, Mean Platelet Volume 4.7L, Neutrophils (%) (Auto) 79.2H, Lymphocytes (%) (Auto) 10.1L, Monocytes (%) (Auto) 8.6, Eosinophils (%) (Auto) 1.0, Basophils (%) (Auto) 1.0, Sodium Level 134L, Potassium Level 4.5, Chloride Level 101, Carbon Dioxide Level 27, Anion Gap 6, Blood Urea Nitrogen 20H, Creatinine 0.4L, Estimat Glomerular Filtration Rate , Glucose Level 145H, Calcium Level 8.7, Total Bilirubin 0.8, Aspartate Amino Transf (AST/SGOT) 175H, Alanine Aminotransferase (ALT/SGPT) 131H, Alkaline Phosphatase 1589H, Total Protein 5.6L, Albumin 1.7L, Globulin 3.9, Albumin/Globulin Ratio 0.4L Height (Feet): 5 Height (Inches): 2.00 Weight (Pounds): 126 General Appearance: no apparent distress EENT: normal ENT inspection Neck: supple Cardiovascular: normal rate Respiratory/Chest: decreased breath sounds Abdomen: soft, hypoactive bowel sounds, tender Extremities: non-tender Tramaine Miller MD Jun 28, 2018 11:06
--- NOTE | 2018-06-28 11:35 | Infectious Diseases Prog Note ---
Assessment/Plan Assessment/Plan A 1. Enterococcal , candidal UTI 2. Acute cholecystitis , Cholangitis 3. pleural effusion s/p thoracentesis 4. leucocytosis resolved 5. ovarian cancer 6. s/p IR guided cholecystotomy tube placement P 1.Continue Zosyn until expiration date, today Subjective ROS Limited/Unobtainable: Yes Constitutional: Reports: no symptoms Allergies: Coded Allergies: No Known Allergies (Unverified , 06/17/18) Objective Vital Signs Last 24 Hour Vital Signs Date Time Temp Pulse Resp B/P (MAP) Pulse Ox O2 Delivery O2 Flow Rate FiO2 06/28/18 09:00 Nasal Cannula 2.0 Nasal Cannula 2.0 06/28/18 08:00 97.3 98 18 118/83 (95) 98 06/28/18 07:13 Nasal Cannula 2.0 28 06/28/18 07:13 97 Nasal Cannula 2.0 28 06/28/18 04:00 97.8 97 17 126/84 (98) 98 06/27/18 21:00 Nasal Cannula 2.0 Nasal Cannula 2.0 06/27/18 20:00 97.5 98 18 125/80 (95) 96 06/27/18 16:00 97.8 98 18 119/78 (92) 99 06/27/18 12:00 97.9 92 18 115/81 (92) 99 Height (Feet): 5 Height (Inches): 2.00 Weight (Pounds): 126 General Appearance: no acute distress HEENT: mucous membranes moist Respiratory/Chest: lungs clear Cardiovascular: normal rate Abdomen: soft, non tender, other - RUQ cholecytostomy tube Extremities: no edema Neurologic/Psychiatric: alert, responsive Microbiology Date/Time Source Procedure Growth Status 06/25/18 16:23 Body Fluid Gram Stain - Final Resulted 06/25/18 16:23 Body Fluid Body Fluid Culture - Preliminary NO GROWTH AFTER 48 HOURS Resulted Laboratory Tests Test 06/28/18 04:45 White Blood Count 9.0 K/UL (4.8-10.8) Red Blood Count 3.96 M/UL (4.20-5.40) L Hemoglobin 11.5 G/DL (12.0-16.0) L Hematocrit 35.6 % (37.0-47.0) L Mean Corpuscular Volume 90 FL (80-99) Mean Corpuscular Hemoglobin 29.1 PG (27.0-31.0) Mean Corpuscular Hemoglobin Concent 32.4 G/DL (32.0-36.0) Red Cell Distribution Width 15.0 % (11.6-14.8) H Platelet Count 554 K/UL (150-450) H Mean Platelet Volume 4.7 FL (6.5-10.1) L Neutrophils (%) (Auto) 79.2 % (45.0-75.0) H Lymphocytes (%) (Auto) 10.1 % (20.0-45.0) L Monocytes (%) (Auto) 8.6 % (1.0-10.0) Eosinophils (%) (Auto) 1.0 % (0.0-3.0) Basophils (%) (Auto) 1.0 % (0.0-2.0) Sodium Level 134 MMOL/L (136-145) L Potassium Level 4.5 MMOL/L (3.5-5.1) Chloride Level 101 MMOL/L (98-107) Carbon Dioxide Level 27 MMOL/L (21-32) Anion Gap 6 mmol/L (5-15) Blood Urea Nitrogen 20 mg/dL (7-18) H Creatinine 0.4 MG/DL (0.55-1.30) L Estimat Glomerular Filtration Rate mL/min (>60) Glucose Level 145 MG/DL (74-106) H Calcium Level 8.7 MG/DL (8.5-10.1) Total Bilirubin 0.8 MG/DL (0.2-1.0) Aspartate Amino Transf (AST/SGOT) 175 U/L (15-37) H Alanine Aminotransferase (ALT/SGPT) 131 U/L (12-78) H Alkaline Phosphatase 1589 U/L (46-116) H Total Protein 5.6 G/DL (6.4-8.2) L Albumin 1.7 G/DL (3.4-5.0) L Globulin 3.9 g/dL Albumin/Globulin Ratio 0.4 (1.0-2.7) L Current Medications Medications (Trade) Dose Ordered Sig/Susana Route PRN Reason Start Time Stop Time Status Last Admin Dose Admin Acetaminophen (Tylenol) 500 mg Q4H PRN ORAL Mild Pain/Temp > 100.5 06/23/18 11:30 3/8/19 11:29 06/23/18 16:06 Bisacodyl (Dulcolax) 10 mg DAILY ORAL 06/24/18 09:00 07/20/18 08:59 06/28/18 08:37 Docusate Sodium (Colace) 100 mg TWICE A DAY ORAL 06/23/18 18:00 07/19/18 18:59 06/28/18 08:37 Furosemide (Lasix) 20 mg DAILY IV 06/26/18 09:00 07/18/18 08:59 06/28/18 08:37 Heparin Sodium (Porcine) (Heparin 5000 units/ml) 5,000 units EVERY 12 HOURS SUBQ 06/23/18 21:00 07/21/18 08:59 06/28/18 08:38 Magnesium Hydroxide (Mom) 30 ml Q4H PRN ORAL Constipation 06/23/18 14:30 07/19/18 18:29 Pantoprazole (Protonix) 40 mg DAILY ORAL 06/24/18 09:00 07/18/18 08:59 06/28/18 08:37 Piperacillin Sod/ Tazobactam Sod 3.375 gm/Sodium Chloride 110 ml @ 27.5 mls/hr EVERY 8 HOURS IVPB 06/23/18 14:00 06/28/18 13:59 06/28/18 05:42 Potassium Chloride (K-Dur) 40 meq TWICE A DAY ORAL 06/23/18 18:00 07/18/18 17:59 06/28/18 08:37 Zolpidem Tartrate (Ambien) 5 mg HSPRN PRN ORAL Insomnia 06/23/18 12:00 06/28/18 11:59 06/27/18 22:38 Eugenio Goss MD Jun 28, 2018 11:35
--- NOTE | 2018-06-28 11:36 | General Progress Note ---
Assessment/Plan Assessment/Plan (1) Intractable pain (2) Ovarian cancer Patient to be continued on Morphine. Dr. Breaux and he concurred. Subjective Date patient seen: Jun 28, 2018 Time patient seen: 11:10 - am Allergies: Coded Allergies: No Known Allergies (Unverified , 06/17/18) Subjective Constitutional: Reports: weakness HEENT: Reports: no symptoms Respiratory: Reports: no symptoms Gastrointestinal/Abdominal: Reports: abdominal pain Genitourinary: Reports: no symptoms Neurologic/Psychiatric: Reports: weakness Endocrine: Reports: no symptoms Hematologic/Lymphatic: Reports: no symptoms Subjective Patient is in bed and c/o no pain. Using the Morphine fo severe pain, has not requested in the last 24hrs. Objective Last 24 Hour Vital Signs Date Time Temp Pulse Resp B/P (MAP) Pulse Ox O2 Delivery O2 Flow Rate FiO2 06/28/18 09:00 Nasal Cannula 2.0 Nasal Cannula 2.0 06/28/18 08:00 97.3 98 18 118/83 (95) 98 06/28/18 07:13 Nasal Cannula 2.0 28 06/28/18 07:13 97 Nasal Cannula 2.0 28 06/28/18 04:00 97.8 97 17 126/84 (98) 98 06/27/18 21:00 Nasal Cannula 2.0 Nasal Cannula 2.0 06/27/18 20:00 97.5 98 18 125/80 (95) 96 06/27/18 16:00 97.8 98 18 119/78 (92) 99 06/27/18 12:00 97.9 92 18 115/81 (92) 99 Intake and Output 06/27/18 06/28/18 19:00 07:00 Intake Total 922.5 ml 240 ml Output Total 900 ml 525 ml Balance 22.5 ml -285 ml Intake Oral 730 ml 240 ml IV Total 192.5 ml Output Urine Total 900 ml 500 ml Other 25 ml Laboratory Tests 06/28/18 04:45: White Blood Count 9.0, Red Blood Count 3.96L, Hemoglobin 11.5L, Hematocrit 35.6L , Mean Corpuscular Volume 90, Mean Corpuscular Hemoglobin 29.1, Mean Corpuscular Hemoglobin Concent 32.4, Red Cell Distribution Width 15.0H, Platelet Count 554H, Mean Platelet Volume 4.7L, Neutrophils (%) (Auto) 79.2H, Lymphocytes (%) (Auto) 10.1L, Monocytes (%) (Auto) 8.6, Eosinophils (%) (Auto) 1.0, Basophils (%) (Auto) 1.0, Sodium Level 134L, Potassium Level 4.5, Chloride Level 101, Carbon Dioxide Level 27, Anion Gap 6, Blood Urea Nitrogen 20H, Creatinine 0.4L, Estimat Glomerular Filtration Rate , Glucose Level 145H, Calcium Level 8.7, Total Bilirubin 0.8, Aspartate Amino Transf (AST/SGOT) 175H, Alanine Aminotransferase (ALT/SGPT) 131H, Alkaline Phosphatase 1589H, Total Protein 5.6L, Albumin 1.7L, Globulin 3.9, Albumin/Globulin Ratio 0.4L Height (Feet): 5 Height (Inches): 2.00 Weight (Pounds): 126 Objective General Appearance: no apparent distress, alert EENT: PERRL/EOMI Neck: normal alignment, supple Cardiovascular: normal rate, regular rhythm Respiratory/Chest: decreased breath sounds Abdomen: tender Extremities: non-tender Neurologic: alert, responsive Skin: normal pigmentation Tenzin Foster Jun 28, 2018 11:36
[2018-06-28 12:00] VITALS: BP 112/82
--- NOTE | 2018-06-28 12:51 | Nephrology Progress Note ---
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 monitor labs low dose lasix k supplement Subjective ROS Limited/Unobtainable: No Constitutional: Reports: malaise Objective Objective Last 24 Hour Vital Signs Date Time Temp Pulse Resp B/P (MAP) Pulse Ox O2 Delivery O2 Flow Rate FiO2 06/28/18 09:00 Nasal Cannula 2.0 Nasal Cannula 2.0 06/28/18 08:00 97.3 98 18 118/83 (95) 98 06/28/18 07:13 Nasal Cannula 2.0 28 06/28/18 07:13 97 Nasal Cannula 2.0 28 06/28/18 04:00 97.8 97 17 126/84 (98) 98 06/27/18 21:00 Nasal Cannula 2.0 Nasal Cannula 2.0 06/27/18 20:00 97.5 98 18 125/80 (95) 96 06/27/18 16:00 97.8 98 18 119/78 (92) 99 Intake and Output 06/27/18 06/28/18 18:59 06:59 Intake Total 922.5 ml 240 ml Output Total 900 ml 525 ml Balance 22.5 ml -285 ml Intake Oral 730 ml 240 ml IV Total 192.5 ml Output Urine Total 900 ml 500 ml Other 25 ml Laboratory Tests 06/28/18 04:45: White Blood Count 9.0, Red Blood Count 3.96L, Hemoglobin 11.5L, Hematocrit 35.6L , Mean Corpuscular Volume 90, Mean Corpuscular Hemoglobin 29.1, Mean Corpuscular Hemoglobin Concent 32.4, Red Cell Distribution Width 15.0H, Platelet Count 554H, Mean Platelet Volume 4.7L, Neutrophils (%) (Auto) 79.2H, Lymphocytes (%) (Auto) 10.1L, Monocytes (%) (Auto) 8.6, Eosinophils (%) (Auto) 1.0, Basophils (%) (Auto) 1.0, Sodium Level 134L, Potassium Level 4.5, Chloride Level 101, Carbon Dioxide Level 27, Anion Gap 6, Blood Urea Nitrogen 20H, Creatinine 0.4L, Estimat Glomerular Filtration Rate , Glucose Level 145H, Calcium Level 8.7, Total Bilirubin 0.8, Aspartate Amino Transf (AST/SGOT) 175H, Alanine Aminotransferase (ALT/SGPT) 131H, Alkaline Phosphatase 1589H, Total Protein 5.6L, Albumin 1.7L, Globulin 3.9, Albumin/Globulin Ratio 0.4L Height (Feet): 5 Height (Inches): 2.00 Weight (Pounds): 126 Cardiovascular: tachycardia Respiratory/Chest: decreased breath sounds Abdomen: distended Objective no change Jae Walker MD Jun 28, 2018 12:51
--- NOTE | 2018-06-28 13:32 | General Progress Note ---
Assessment/Plan Problem List: (1) Ovarian carcinoma ICD Codes: C56.9 - Malignant neoplasm of unspecified ovary SNOMED: 528745578 Qualifiers: Qualified Codes: C56.9 - Malignant neoplasm of unspecified ovary (2) Respiratory distress ICD Codes: R06.03 - Acute respiratory distress SNOMED: 399956496 (3) Pleural effusion ICD Codes: J90 - Pleural effusion, not elsewhere classified SNOMED: 17150263 (4) Hypoalbuminemia ICD Codes: E88.09 - Other disorders of plasma-protein metabolism, not elsewhere classified SNOMED: 726429801 Status: progressing Assessment/Plan acute cholycystitis pleural effusion s/p resent ovarian removal and hysterectomy tube per IR still has abdominal pain mets ca not much change reviewed chart and labs afebrile Subjective ROS Limited/Unobtainable: Yes Allergies: Coded Allergies: No Known Allergies (Unverified , 06/17/18) Subjective sob Objective Last 24 Hour Vital Signs Date Time Temp Pulse Resp B/P (MAP) Pulse Ox O2 Delivery O2 Flow Rate FiO2 06/28/18 12:00 97.9 107 18 112/82 (92) 98 06/28/18 09:00 Nasal Cannula 2.0 Nasal Cannula 2.0 06/28/18 08:00 97.3 98 18 118/83 (95) 98 06/28/18 07:13 Nasal Cannula 2.0 28 06/28/18 07:13 97 Nasal Cannula 2.0 28 06/28/18 04:00 97.8 97 17 126/84 (98) 98 06/27/18 21:00 Nasal Cannula 2.0 Nasal Cannula 2.0 06/27/18 20:00 97.5 98 18 125/80 (95) 96 06/27/18 16:00 97.8 98 18 119/78 (92) 99 Intake and Output 06/27/18 06/28/18 19:00 07:00 Intake Total 922.5 ml 240 ml Output Total 900 ml 525 ml Balance 22.5 ml -285 ml Intake Oral 730 ml 240 ml IV Total 192.5 ml Output Urine Total 900 ml 500 ml Other 25 ml Laboratory Tests 06/28/18 04:45: White Blood Count 9.0, Red Blood Count 3.96L, Hemoglobin 11.5L, Hematocrit 35.6L , Mean Corpuscular Volume 90, Mean Corpuscular Hemoglobin 29.1, Mean Corpuscular Hemoglobin Concent 32.4, Red Cell Distribution Width 15.0H, Platelet Count 554H, Mean Platelet Volume 4.7L, Neutrophils (%) (Auto) 79.2H, Lymphocytes (%) (Auto) 10.1L, Monocytes (%) (Auto) 8.6, Eosinophils (%) (Auto) 1.0, Basophils (%) (Auto) 1.0, Sodium Level 134L, Potassium Level 4.5, Chloride Level 101, Carbon Dioxide Level 27, Anion Gap 6, Blood Urea Nitrogen 20H, Creatinine 0.4L, Estimat Glomerular Filtration Rate , Glucose Level 145H, Calcium Level 8.7, Total Bilirubin 0.8, Aspartate Amino Transf (AST/SGOT) 175H, Alanine Aminotransferase (ALT/SGPT) 131H, Alkaline Phosphatase 1589H, Total Protein 5.6L, Albumin 1.7L, Globulin 3.9, Albumin/Globulin Ratio 0.4L Height (Feet): 5 Height (Inches): 2.00 Weight (Pounds): 126 Neck: supple Cardiovascular: normal rate Respiratory/Chest: lungs clear Vane Stephenson MD Jun 28, 2018 13:31
--- NOTE | 2018-06-28 15:06 | Pulmonology Progress Note ---
Assessment/Plan Assessment/Plan Pulmonary Progress Note Assessment/Plan Problem List: 1. Shortness of breath - stable over night, no new complaints. 2. Large bilateral pleural effusions - s/p R thoracentesis 800 cc 06/18 3. Ovarian cancer s/p resection with likely malignant ascites and presumed malignant effusions 4. Protein calorie malnutrition 5. Abdominal pain - acute cholecysitis Plan: -f/u MRCP results -may need cholecystostomy tube -repeat thoracentesis for now but will move forward with pleurx catheter placement once issues with gallbladder settled -f/u cytology of R thoracentesis -monitor volumes -pain control Subjective ROS Limited/Unobtainable: Yes Interval Events: Concern for cholecystitis and s/p MRCP. CXR with b/l effusions Allergies: Coded Allergies: No Known Allergies (Unverified , 06/17/18) Objective Vital Signs Noted General Appearance: no acute distress HEENT: mucous membranes moist Respiratory/Chest: decreased breath sounds Cardiovascular: regular rhythm Abdomen: distended, tender Extremities: no edema Neurologic/Psychiatric: responsive Laboratory Tests 06/24/18 05:41: White Blood Count 10.8, Red Blood Count 3.69L, Hemoglobin 11.1L, Hematocrit 33.1L, Mean Corpuscular Volume 90, Mean Corpuscular Hemoglobin 30.0, Mean Corpuscular Hemoglobin Concent 33.4, Red Cell Distribution Width 14.7, Platelet Count 770H, Mean Platelet Volume 4.6L, Neutrophils (%) (Auto) 83.8H, Lymphocytes (%) (Auto) 9.0L, Monocytes (%) (Auto) 5.8, Eosinophils (%) (Auto) 0.4, Basophils (%) (Auto) 1.0, Erythrocyte Sedimentation Rate 67H, Prothrombin Time 10.1, Prothromb Time International Ratio 1.0, Activated Partial Thromboplast Time 28, Sodium Level 134L, Potassium Level 4.0, Chloride Level 98 , Carbon Dioxide Level 30, Anion Gap 6, Blood Urea Nitrogen 15, Creatinine 0.5L , Estimat Glomerular Filtration Rate , Glucose Level 132H, Osmolality 283L, Uric Acid 1.9L, Calcium Level 8.8, Phosphorus Level 2.9, Magnesium Level 2.1, Total Bilirubin 0.8, Aspartate Amino Transf (AST/SGOT) 97H, Alanine Aminotransferase (ALT/SGPT) 80H, Alkaline Phosphatase 1476H, C-Reactive Protein , Quantitative 4.8H, Total Protein 5.3L, Albumin 1.6L, Globulin 3.7, Albumin/ Globulin Ratio 0.4L, Amylase Level 39, Lipase 279 Current Medications Medications (Trade) Dose Ordered Sig/Susana Route PRN Reason Start Time Stop Time Status Last Admin Dose Admin Acetaminophen (Tylenol) 500 mg Q4H PRN ORAL Mild Pain/Temp > 100.5 06/23/18 11:30 07/17/18 11:29 06/23/18 16:06 Bisacodyl (Dulcolax) 10 mg DAILY ORAL 06/24/18 09:00 07/20/18 08:59 06/24/18 10:49 Diatrizoate Meglum/ Diatrizoate Sod (Gastrografin) 30 ml NOW PRN ORAL Radiology Procedure 06/23/18 18:45 06/24/18 23:59 Docusate Sodium (Colace) 100 mg TWICE A DAY ORAL 06/23/18 18:00 07/19/18 18:59 06/24/18 10:48 Fluconazole (Diflucan) 100 mg DAILY ORAL 06/24/18 09:00 06/27/18 11:59 06/24/18 10:48 Furosemide (Lasix) 20 mg Q8HR IV 06/24/18 14:00 07/18/18 08:59 Heparin Sodium (Porcine) (Heparin 5000 units/ml) 5,000 units EVERY 12 HOURS SUBQ 06/23/18 21:00 07/21/18 08:59 06/24/18 10:50 Iopamidol (Isovue-300 100ml) 100 ml NOW PRN INJ Radiology Procedure 06/23/18 18:45 06/24/18 18:44 Magnesium Hydroxide (Mom) 30 ml Q4H PRN ORAL Constipation 06/23/18 14:30 07/19/18 18:29 Morphine Sulfate (Morphine Sulfate) 2 mg Q4H PRN IVP Moderate Pain (Pain Scale 4-6) 06/23/18 13:00 06/25/18 16:46 Morphine Sulfate (Morphine Sulfate) 4 mg Q4H PRN IVP Severe Pain (Pain Scale 7-10) 06/23/18 13:00 06/25/18 16:46 Pantoprazole (Protonix) 40 mg DAILY ORAL 06/24/18 09:00 07/18/18 08:59 06/24/18 10:49 Piperacillin Sod/ Tazobactam Sod 3.375 gm/Sodium Chloride 110 ml @ 27.5 mls/hr EVERY 8 HOURS IVPB 06/23/18 14:00 06/28/18 13:59 06/24/18 05:59 Potassium Chloride (K-Dur) 40 meq TWICE A DAY ORAL 06/23/18 18:00 07/18/18 17:59 06/24/18 10:48 Sodium Chloride 250 ml @ 30 mls/hr ONCE IV 06/24/18 15:00 06/24/18 23:59 Zolpidem Tartrate (Ambien) 5 mg HSPRN PRN ORAL Insomnia 06/23/18 12:00 06/28/18 11:59 06/23/18 20:47 Subjective ROS Limited/Unobtainable: No Allergies: Coded Allergies: No Known Allergies (Unverified , 06/17/18) Objective Last 24 Hour Vital Signs Date Time Temp Pulse Resp B/P (MAP) Pulse Ox O2 Delivery O2 Flow Rate FiO2 06/28/18 12:00 97.9 107 18 112/82 (92) 98 06/28/18 09:00 Nasal Cannula 2.0 Nasal Cannula 2.0 06/28/18 08:00 97.3 98 18 118/83 (95) 98 06/28/18 07:13 Nasal Cannula 2.0 28 06/28/18 07:13 97 Nasal Cannula 2.0 28 06/28/18 04:00 97.8 97 17 126/84 (98) 98 06/27/18 21:00 Nasal Cannula 2.0 Nasal Cannula 2.0 06/27/18 20:00 97.5 98 18 125/80 (95) 96 06/27/18 16:00 97.8 98 18 119/78 (92) 99 Intake and Output 06/27/18 06/28/18 18:59 06:59 Intake Total 922.5 ml 240 ml Output Total 900 ml 525 ml Balance 22.5 ml -285 ml Intake Oral 730 ml 240 ml IV Total 192.5 ml Output Urine Total 900 ml 500 ml Other 25 ml Microbiology Date/Time Source Procedure Growth Status 06/25/18 16:23 Body Fluid Gram Stain - Final Resulted 06/25/18 16:23 Body Fluid Body Fluid Culture - Preliminary NO GROWTH AFTER 48 HOURS Resulted Laboratory Tests 06/28/18 04:45: White Blood Count 9.0, Red Blood Count 3.96L, Hemoglobin 11.5L, Hematocrit 35.6L , Mean Corpuscular Volume 90, Mean Corpuscular Hemoglobin 29.1, Mean Corpuscular Hemoglobin Concent 32.4, Red Cell Distribution Width 15.0H, Platelet Count 554H, Mean Platelet Volume 4.7L, Neutrophils (%) (Auto) 79.2H, Lymphocytes (%) (Auto) 10.1L, Monocytes (%) (Auto) 8.6, Eosinophils (%) (Auto) 1.0, Basophils (%) (Auto) 1.0, Sodium Level 134L, Potassium Level 4.5, Chloride Level 101, Carbon Dioxide Level 27, Anion Gap 6, Blood Urea Nitrogen 20H, Creatinine 0.4L, Estimat Glomerular Filtration Rate , Glucose Level 145H, Calcium Level 8.7, Total Bilirubin 0.8, Aspartate Amino Transf (AST/SGOT) 175H, Alanine Aminotransferase (ALT/SGPT) 131H, Alkaline Phosphatase 1589H, Total Protein 5.6L, Albumin 1.7L, Globulin 3.9, Albumin/Globulin Ratio 0.4L Current Medications Medications (Trade) Dose Ordered Sig/Susana Route PRN Reason Start Time Stop Time Status Last Admin Dose Admin Acetaminophen (Tylenol) 500 mg Q4H PRN ORAL Mild Pain/Temp > 100.5 06/23/18 11:30 07/17/18 11:29 06/23/18 16:06 Bisacodyl (Dulcolax) 10 mg DAILY ORAL 06/24/18 09:00 07/20/18 08:59 06/28/18 08:37 Docusate Sodium (Colace) 100 mg TWICE A DAY ORAL 06/23/18 18:00 07/19/18 18:59 06/28/18 08:37 Furosemide (Lasix) 20 mg DAILY IV 06/26/18 09:00 07/18/18 08:59 06/28/18 08:37 Heparin Sodium (Porcine) (Heparin 5000 units/ml) 5,000 units EVERY 12 HOURS SUBQ 06/23/18 21:00 07/21/18 08:59 06/28/18 08:38 Magnesium Hydroxide (Mom) 30 ml Q4H PRN ORAL Constipation 06/23/18 14:30 07/19/18 18:29 Pantoprazole (Protonix) 40 mg DAILY ORAL 06/24/18 09:00 07/18/18 08:59 06/28/18 08:37 Potassium Chloride (K-Dur) 40 meq TWICE A DAY ORAL 06/23/18 18:00 07/18/18 17:59 06/28/18 08:37 Faisal Beltre MD Jun 28, 2018 15:06
--- NOTE | 2018-06-28 15:50 | Surgery Progress Note ---
Surgery Progress Note Subjective Symptoms: improved Objective Last 24 Hour Vital Signs Date Time Temp Pulse Resp B/P (MAP) Pulse Ox O2 Delivery O2 Flow Rate FiO2 06/28/18 12:00 97.9 107 18 112/82 (92) 98 06/28/18 09:00 Nasal Cannula 2.0 Nasal Cannula 2.0 06/28/18 08:00 97.3 98 18 118/83 (95) 98 06/28/18 07:13 Nasal Cannula 2.0 28 06/28/18 07:13 97 Nasal Cannula 2.0 28 06/28/18 04:00 97.8 97 17 126/84 (98) 98 06/27/18 21:00 Nasal Cannula 2.0 Nasal Cannula 2.0 06/27/18 20:00 97.5 98 18 125/80 (95) 96 06/27/18 16:00 97.8 98 18 119/78 (92) 99 I&O Intake and Output 06/27/18 06/28/18 18:59 06:59 Intake Total 922.5 ml 240 ml Output Total 900 ml 525 ml Balance 22.5 ml -285 ml Intake Oral 730 ml 240 ml IV Total 192.5 ml Output Urine Total 900 ml 500 ml Other 25 ml Dressing: other Wound: other Drains: other Cardiovascular: RSR Respiratory: clear Abdomen: soft, flat, non-distended Extremities: other Laboratory Tests Test 06/28/18 04:45 White Blood Count 9.0 K/UL (4.8-10.8) Red Blood Count 3.96 M/UL (4.20-5.40) L Hemoglobin 11.5 G/DL (12.0-16.0) L Hematocrit 35.6 % (37.0-47.0) L Mean Corpuscular Volume 90 FL (80-99) Mean Corpuscular Hemoglobin 29.1 PG (27.0-31.0) Mean Corpuscular Hemoglobin Concent 32.4 G/DL (32.0-36.0) Red Cell Distribution Width 15.0 % (11.6-14.8) H Platelet Count 554 K/UL (150-450) H Mean Platelet Volume 4.7 FL (6.5-10.1) L Neutrophils (%) (Auto) 79.2 % (45.0-75.0) H Lymphocytes (%) (Auto) 10.1 % (20.0-45.0) L Monocytes (%) (Auto) 8.6 % (1.0-10.0) Eosinophils (%) (Auto) 1.0 % (0.0-3.0) Basophils (%) (Auto) 1.0 % (0.0-2.0) Sodium Level 134 MMOL/L (136-145) L Potassium Level 4.5 MMOL/L (3.5-5.1) Chloride Level 101 MMOL/L (98-107) Carbon Dioxide Level 27 MMOL/L (21-32) Anion Gap 6 mmol/L (5-15) Blood Urea Nitrogen 20 mg/dL (7-18) H Creatinine 0.4 MG/DL (0.55-1.30) L Estimat Glomerular Filtration Rate mL/min (>60) Glucose Level 145 MG/DL (74-106) H Calcium Level 8.7 MG/DL (8.5-10.1) Total Bilirubin 0.8 MG/DL (0.2-1.0) Aspartate Amino Transf (AST/SGOT) 175 U/L (15-37) H Alanine Aminotransferase (ALT/SGPT) 131 U/L (12-78) H Alkaline Phosphatase 1589 U/L (46-116) H Total Protein 5.6 G/DL (6.4-8.2) L Albumin 1.7 G/DL (3.4-5.0) L Globulin 3.9 g/dL Albumin/Globulin Ratio 0.4 (1.0-2.7) L Plan Problems: (1) Cholecystitis Assessment & Plan: acute cholecystitis ovarian cancer with mets complicated medical and surgical history Cholelithiasis and gallbladder wall thickening. Note that recent hepatobiliary nuclear scan is positive for acute cholecystitis. Given the nodular and irregular appearance of the gallbladder wall, possibly a gallbladder neoplasm should also be considered Unusual enhancement of the biliary ductal hernandez, raising concern for cholangitis. Correlate with clinical history and findings cholecystotomy tube placed - Successful percutaneous cholecystostomy under ultrasound and fluoroscopic guidance. Note that aspiration of the gallbladder yielded approximately 15 mL of darshan pus given above no surgery recommended. cont current care tube care will follow with recs as results available thank you (2) Abdominal pain Rich Kiran Jun 28, 2018 15:50
[2018-06-28 16:00] VITALS: BP 110/78
--- NOTE | 2018-06-28 19:00 | NUR ---
NURSE NOTES: drained 20cc of drainage from uresil. uresil and landeros intact, draining well to gravity.
--- NOTE | 2018-06-28 19:31 | NUR ---
HAND-OFF: Report given to Latasha KIRBY.
--- NOTE | 2018-06-28 19:32 | NUR ---
NURSE NOTES: Received report & pt from KOFI Anderson. Pt lying in bed, a&ox4, Pashto speaking, on o2 via NC @ 2LPM, family member at bedside. No s/s of acute distress & no c/o pain at this time. [place] intact draining yellow urine output to gravity. Uresil cath to drainage. IV site x2 intact & S/L'd. Bed in lowest position, call light within reach. Will continue to monitor.
[2018-06-28 20:00] VITALS: BP 119/77
--- NOTE | 2018-06-28 20:30 | NUR ---
NURSE NOTES: Pt's Ambien 5mg PO QHS PRN order fell off. Called Dr. Stephenson if RN can reorder. Per MD, "Yes, same dosage" Noted & carried out.
[2018-06-28] MEDS: Zolpidem 5mg tab ORAL PRN (20:59)
--- NOTE | 2018-06-28 23:00 | NUR ---
NURSE NOTES: Irrigated uresil tube with 10cc of NS as ordered by .
[2018-06-28 23:54] VITALS: BP 120/76
--- NOTE | 2018-06-28 23:55 | Cardiology Progress Note ---
Assessment/Plan Assessment/Plan 1. Sinus tachycardia, likely due to sepsis, low intravascular volume depletion due to low oncotic pressure, or tumor burden. 2. B/L pleural effusion, s/p thoracentesis 3. Metastatic ovarian cancer 4. FTT 5. Respiratory failure. 6. Encephalopathy 7. Moderate pulmonary HTN. 8. Sepsis, s/p cholecystostomy. Subjective Subjective No cardiac events is reported. Objective Last 24 Hour Vital Signs Date Time Temp Pulse Resp B/P (MAP) Pulse Ox O2 Delivery O2 Flow Rate FiO2 06/28/18 23:54 98.1 100 16 120/76 (91) 98 06/28/18 21:00 Nasal Cannula 2.0 Nasal Cannula 2.0 06/28/18 20:42 Nasal Cannula 2.0 28 06/28/18 20:41 97 Nasal Cannula 2.0 28 06/28/18 20:00 98.0 102 17 119/77 (91) 97 06/28/18 16:00 97.4 106 18 110/78 (89) 98 06/28/18 12:00 97.9 107 18 112/82 (92) 98 06/28/18 09:00 Nasal Cannula 2.0 Nasal Cannula 2.0 06/28/18 08:00 97.3 98 18 118/83 (95) 98 06/28/18 07:13 Nasal Cannula 2.0 28 06/28/18 07:13 97 Nasal Cannula 2.0 28 06/28/18 04:00 97.8 97 17 126/84 (98) 98 Intake and Output 06/27/18 06/28/18 19:00 07:00 Intake Total 922.5 ml 240 ml Output Total 900 ml 525 ml Balance 22.5 ml -285 ml Intake Oral 730 ml 240 ml IV Total 192.5 ml Output Urine Total 900 ml 500 ml Other 25 ml 2D Echo: LVEF 65%, Grade I LVDD, pleural effusion, RVSP 48 mmHg Laboratory Tests Test 06/28/18 04:45 White Blood Count 9.0 K/UL (4.8-10.8) Red Blood Count 3.96 M/UL (4.20-5.40) L Hemoglobin 11.5 G/DL (12.0-16.0) L Hematocrit 35.6 % (37.0-47.0) L Mean Corpuscular Volume 90 FL (80-99) Mean Corpuscular Hemoglobin 29.1 PG (27.0-31.0) Mean Corpuscular Hemoglobin Concent 32.4 G/DL (32.0-36.0) Red Cell Distribution Width 15.0 % (11.6-14.8) H Platelet Count 554 K/UL (150-450) H Mean Platelet Volume 4.7 FL (6.5-10.1) L Neutrophils (%) (Auto) 79.2 % (45.0-75.0) H Lymphocytes (%) (Auto) 10.1 % (20.0-45.0) L Monocytes (%) (Auto) 8.6 % (1.0-10.0) Eosinophils (%) (Auto) 1.0 % (0.0-3.0) Basophils (%) (Auto) 1.0 % (0.0-2.0) Sodium Level 134 MMOL/L (136-145) L Potassium Level 4.5 MMOL/L (3.5-5.1) Chloride Level 101 MMOL/L (98-107) Carbon Dioxide Level 27 MMOL/L (21-32) Anion Gap 6 mmol/L (5-15) Blood Urea Nitrogen 20 mg/dL (7-18) H Creatinine 0.4 MG/DL (0.55-1.30) L Estimat Glomerular Filtration Rate mL/min (>60) Glucose Level 145 MG/DL (74-106) H Calcium Level 8.7 MG/DL (8.5-10.1) Total Bilirubin 0.8 MG/DL (0.2-1.0) Aspartate Amino Transf (AST/SGOT) 175 U/L (15-37) H Alanine Aminotransferase (ALT/SGPT) 131 U/L (12-78) H Alkaline Phosphatase 1589 U/L (46-116) H Total Protein 5.6 G/DL (6.4-8.2) L Albumin 1.7 G/DL (3.4-5.0) L Globulin 3.9 g/dL Albumin/Globulin Ratio 0.4 (1.0-2.7) L Objective HEENT: Atraumatic and normocephalic. Anicteric. Pupils are equal, round, and reactive to light and accommodation. Extraocular muscles intact. NECK: JVP less than 5 cm. No carotid bruit. Carotid upstrokes 2+ bilaterally. CARDIOVASCULAR: Normal S1, S2. Regular rate and rhythm. Tachycardic. No murmurs, gallops, or rubs. LUNGS: Diminished breath sounds in both bases. ABDOMEN: Soft, nontender, and nondistended. No hepatosplenomegaly. Positive bowel sounds. An abdominal incision site is clean. EXTREMITIES: No evidence of edema, clubbing, or cyanosis. Andrew Man MD Jun 28, 2018 23:55
[2018-06-29 04:00] VITALS: BP 122/74
--- NOTE | 2018-06-29 07:37 | NUR ---
HAND-OFF: Report given to KOFI Farr.
--- NOTE | 2018-06-29 07:40 | NUR ---
NURSE NOTES: Received report from KOFI Pagan. Rounding done with outgoing nurse. Patient a/o x4 lying on the bed. Denies any pain at this time. No respiratory discomfort noted. Questions answered. Set up ensure and apple juice for her. Right cholecystostomy tube is in placed and will irrigate around 11am. Bed in lowest position, call light within reach. Will continue to monitor.
[2018-06-29 08:00] VITALS: BP 122/77
--- NOTE | 2018-06-29 08:00 | General Progress Note ---
Assessment/Plan Assessment/Plan (1) Intractable pain (2) Ovarian cancer Patient to be continued on Morphine. Dr. Breaux and he concurred. Subjective Date patient seen: Jun 29, 2018 Time patient seen: 07:15 - am Allergies: Coded Allergies: No Known Allergies (Unverified , 06/17/18) Subjective Constitutional: Reports: weakness HEENT: Reports: no symptoms Respiratory: Reports: no symptoms Gastrointestinal/Abdominal: Reports: abdominal pain Genitourinary: Reports: no symptoms Neurologic/Psychiatric: Reports: weakness Endocrine: Reports: no symptoms Hematologic/Lymphatic: Reports: no symptoms Subjective Patient has been in bed showing no signs of pain or distress, has not requested any morphine at this time. Objective Last 24 Hour Vital Signs Date Time Temp Pulse Resp B/P (MAP) Pulse Ox O2 Delivery O2 Flow Rate FiO2 06/29/18 04:00 98.3 103 17 122/74 (90) 98 06/28/18 23:54 98.1 100 16 120/76 (91) 98 06/28/18 21:00 Nasal Cannula 2.0 Nasal Cannula 2.0 06/28/18 20:42 Nasal Cannula 2.0 28 06/28/18 20:41 97 Nasal Cannula 2.0 28 06/28/18 20:00 98.0 102 17 119/77 (91) 97 06/28/18 16:00 97.4 106 18 110/78 (89) 98 06/28/18 12:00 97.9 107 18 112/82 (92) 98 06/28/18 09:00 Nasal Cannula 2.0 Nasal Cannula 2.0 06/28/18 08:00 97.3 98 18 118/83 (95) 98 Intake and Output 06/28/18 06/29/18 19:00 07:00 Intake Total 600 ml 240 ml Output Total 570 ml 260 ml Balance 30 ml -20 ml Intake Oral 600 ml 240 ml Output Urine Total 550 ml 250 ml Other 20 ml 10 ml # Voids 1 # Bowel Movements 1 Height (Feet): 5 Height (Inches): 2.00 Weight (Pounds): 126 Objective General Appearance: no apparent distress, alert EENT: PERRL/EOMI Neck: normal alignment, supple Cardiovascular: normal rate, regular rhythm Respiratory/Chest: decreased breath sounds Abdomen: tender Extremities: non-tender Neurologic: alert, responsive Skin: normal pigmentation Tenzin Foster Jun 29, 2018 08:00
[2018-06-29] MEDS: Bisacodyl EC 5mg tab ORAL SCH (08:33)
[2018-06-29] MEDS: Docusate 100mg cap ORAL SCH ×2 (08:33→17:51)
[2018-06-29] MEDS: Heparin 5000 units/ml inj SUBQ SCH ×2 (08:34→21:18)
--- NOTE | 2018-06-29 11:04 | GI Progress Note ---
Assessment/Plan Problems: (1) Cancer, metastatic ICD Codes: C79.9 - Secondary malignant neoplasm of unspecified site SNOMED: 305907381 (2) Abdominal pain ICD Codes: R10.9 - Unspecified abdominal pain SNOMED: 50768566 (3) Cirrhosis ICD Codes: K74.60 - Unspecified cirrhosis of liver SNOMED: 24895525 (4) Cholecystitis ICD Codes: K81.9 - Cholecystitis, unspecified SNOMED: 01239851 (5) Pleural effusion ICD Codes: J90 - Pleural effusion, not elsewhere classified SNOMED: 01838984 (6) Ovarian carcinoma ICD Codes: C56.9 - Malignant neoplasm of unspecified ovary SNOMED: 920332700 Qualifiers: Qualified Codes: C56.9 - Malignant neoplasm of unspecified ovary Status: unchanged Status Narrative Discussed with Dr. Miller Assessment/Plan HIDA reviewed >> suggestive of acute cholecystitis Hx of serial paracentesis, ascites dx to be malignant at [place] s/p thoracentesis yielding .8L CT and MRCP reviewed s/p cholecystostomy tube no plans for ERCP given no dilated duct and poor prognosis dc planning surg input appreciated fu labs abx PT evaluation supportive care The patient was seen and examined at bedside and all new and available data was reviewed in the patients chart. I agree with the above findings, impression and plan. (Patient seen earlier today. Signature stamp does not reflect patient encounter time.). - Tramaine Miller MD Subjective Subjective Abdominal pain improved Objective Last 24 Hour Vital Signs Date Time Temp Pulse Resp B/P (MAP) Pulse Ox O2 Delivery O2 Flow Rate FiO2 06/29/18 09:00 Nasal Cannula 2.0 Nasal Cannula 2.0 06/29/18 08:00 97.3 96 17 122/77 (92) 91 06/29/18 06:55 Nasal Cannula 2.0 28 06/29/18 06:55 96 Nasal Cannula 2.0 28 06/29/18 04:00 98.3 103 17 122/74 (90) 98 06/28/18 23:54 98.1 100 16 120/76 (91) 98 06/28/18 21:00 Nasal Cannula 2.0 Nasal Cannula 2.0 06/28/18 20:42 Nasal Cannula 2.0 28 06/28/18 20:41 97 Nasal Cannula 2.0 28 06/28/18 20:00 98.0 102 17 119/77 (91) 97 06/28/18 16:00 97.4 106 18 110/78 (89) 98 06/28/18 12:00 97.9 107 18 112/82 (92) 98 Intake and Output 06/28/18 06/29/18 19:00 07:00 Intake Total 600 ml 240 ml Output Total 570 ml 260 ml Balance 30 ml -20 ml Intake Oral 600 ml 240 ml Output Urine Total 550 ml 250 ml Other 20 ml 10 ml # Voids 1 # Bowel Movements 1 Height (Feet): 5 Height (Inches): 2.00 Weight (Pounds): 126 General Appearance: WD/WN, no apparent distress, alert Cardiovascular: normal rate Respiratory/Chest: normal breath sounds, no respiratory distress Abdominal Exam: normal bowel sounds, non tender, soft Extremities: non-tender Ghanshyam Bryan NP Jun 29, 2018 11:04
--- NOTE | 2018-06-29 11:10 | NUR ---
NURSE NOTES: Irrigation NS 10ml for cholecystostomy tube was done by RN. Patient in stable condition.
--- NOTE | 2018-06-29 11:13 | Infectious Diseases Prog Note ---
"Assessment/Plan Assessment/Plan antibiotics : none A 1. enterococcus | fungal UTI 2. acute cholecystitis s/p cholecystostomy increased LFT 3. pleural effusion s/p thoracentesis 4. leucocytosis resolved 5. ovarian cancer P 1. continue off antibiotics 2. will follow up cultures Subjective Constitutional: Denies: fever, chills Respiratory: Denies: shortness of breath, dry cough Gastrointestinal/Abdominal: Denies: nausea, vomiting, diarrhea Musculoskeletal: Denies: pain Allergies: Coded Allergies: No Known Allergies (Unverified , 06/17/18) Objective Vital Signs Last 24 Hour Vital Signs Date Time Temp Pulse Resp B/P (MAP) Pulse Ox O2 Delivery O2 Flow Rate FiO2 06/29/18 09:00 Nasal Cannula 2.0 Nasal Cannula 2.0 06/29/18 08:00 97.3 96 17 122/77 (92) 91 06/29/18 06:55 Nasal Cannula 2.0 28 06/29/18 06:55 96 Nasal Cannula 2.0 28 06/29/18 04:00 98.3 103 17 122/74 (90) 98 06/28/18 23:54 98.1 100 16 120/76 (91) 98 06/28/18 21:00 Nasal Cannula 2.0 Nasal Cannula 2.0 06/28/18 20:42 Nasal Cannula 2.0 28 06/28/18 20:41 97 Nasal Cannula 2.0 28 06/28/18 20:00 98.0 102 17 119/77 (91) 97 06/28/18 16:00 97.4 106 18 110/78 (89) 98 06/28/18 12:00 97.9 107 18 112/82 (92) 98 Height (Feet): 5 Height (Inches): 2.00 Weight (Pounds): 126 Respiratory/Chest: lungs clear Cardiovascular: normal rate, regular rhythm, no gallop/murmur Abdomen: soft, non tender, other - wound clean Extremities: no edema Current Medications Medications (Trade) Dose Ordered Sig/Susana Route PRN Reason Start Time Stop Time Status Last Admin Dose Admin Acetaminophen (Tylenol) 500 mg Q4H PRN ORAL Mild Pain/Temp > 100.5 06/23/18 11:30 07/17/18 11:29 06/23/18 16:06 Bisacodyl (Dulcolax) 10 mg DAILY ORAL 06/24/18 09:00 07/20/18 08:59 06/29/18 08:33 Docusate Sodium (Colace) 100 mg TWICE A DAY ORAL 06/23/18 18:00 07/19/18 18:59 06/29/18 08:33 Furosemide (Lasix) 20 mg DAILY IV 06/26/18 09:00 07/18/18 08:59 06/29/18 08:33 Heparin Sodium (Porcine) (Heparin 5000 units/ml) 5,000 units EVERY 12 HOURS SUBQ 06/23/18 21:00 07/21/18 08:59 06/29/18 08:34 Magnesium Hydroxide (Mom) 30 ml Q4H PRN ORAL Constipation 06/23/18 14:30 07/19/18 18:29 Morphine Sulfate (Morphine Sulfate) 2 mg Q4H PRN IVP moderate pain 06/29/18 08:00 07/06/18 07:59 Morphine Sulfate (Morphine Sulfate) 4 mg Q4H PRN IVP severe pain 06/29/18 08:00 07/06/18 07:59 Pantoprazole (Protonix) 40 mg DAILY ORAL 06/24/18 09:00 07/18/18 08:59 06/29/18 08:32 Potassium Chloride (K-Dur) 40 meq TWICE A DAY ORAL 06/23/18 18:00 07/18/18 17:59 06/29/18 08:32 Zolpidem Tartrate (Ambien) 5 mg HSPRN PRN ORAL Insomnia 06/28/18 20:45 07/05/18 20:44 06/28/18 20:59 Aurora Phillips MD Jun 29, 2018 11:13"
[2018-06-29 12:00] VITALS: BP 115/76
--- NOTE | 2018-06-29 12:19 | Nephrology Progress Note ---
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 monitor labs low dose lasix k supplement Subjective ROS Limited/Unobtainable: No Constitutional: Reports: malaise Objective Objective Last 24 Hour Vital Signs Date Time Temp Pulse Resp B/P (MAP) Pulse Ox O2 Delivery O2 Flow Rate FiO2 06/29/18 12:00 97.2 102 20 115/76 (89) 94 06/29/18 09:00 Nasal Cannula 2.0 Nasal Cannula 2.0 06/29/18 08:00 97.3 96 17 122/77 (92) 91 06/29/18 06:55 Nasal Cannula 2.0 28 06/29/18 06:55 96 Nasal Cannula 2.0 28 06/29/18 04:00 98.3 103 17 122/74 (90) 98 06/28/18 23:54 98.1 100 16 120/76 (91) 98 06/28/18 21:00 Nasal Cannula 2.0 Nasal Cannula 2.0 06/28/18 20:42 Nasal Cannula 2.0 28 06/28/18 20:41 97 Nasal Cannula 2.0 28 06/28/18 20:00 98.0 102 17 119/77 (91) 97 06/28/18 16:00 97.4 106 18 110/78 (89) 98 Intake and Output 06/28/18 06/29/18 19:00 07:00 Intake Total 600 ml 240 ml Output Total 570 ml 260 ml Balance 30 ml -20 ml Intake Oral 600 ml 240 ml Output Urine Total 550 ml 250 ml Other 20 ml 10 ml # Voids 1 # Bowel Movements 1 Height (Feet): 5 Height (Inches): 2.00 Weight (Pounds): 126 General Appearance: no apparent distress Cardiovascular: normal rate Respiratory/Chest: decreased breath sounds Abdomen: soft, distended Objective no change Jae Walker MD Jun 29, 2018 12:19
--- NOTE | 2018-06-29 14:56 | General Progress Note ---
Assessment/Plan Problem List: (1) Ovarian carcinoma ICD Codes: C56.9 - Malignant neoplasm of unspecified ovary SNOMED: 766044215 Qualifiers: Qualified Codes: C56.9 - Malignant neoplasm of unspecified ovary (2) Respiratory distress ICD Codes: R06.03 - Acute respiratory distress SNOMED: 292851811 (3) Pleural effusion ICD Codes: J90 - Pleural effusion, not elsewhere classified SNOMED: 59446120 (4) Hypoalbuminemia ICD Codes: E88.09 - Other disorders of plasma-protein metabolism, not elsewhere classified SNOMED: 076536286 Status: progressing Assessment/Plan acute cholycystitis pleural effusion s/p resent ovarian removal and hysterectomy tube fro drainage/decompresson is placed per IR unstable for dc still has abdominal pain mets ca not much change reviewed chart and labs afebrile Subjective Allergies: Coded Allergies: No Known Allergies (Unverified , 06/17/18) Subjective abdominal pain sob Objective Last 24 Hour Vital Signs Date Time Temp Pulse Resp B/P (MAP) Pulse Ox O2 Delivery O2 Flow Rate FiO2 06/29/18 12:00 97.2 102 20 115/76 (89) 94 06/29/18 09:00 Nasal Cannula 2.0 Nasal Cannula 2.0 06/29/18 08:00 97.3 96 17 122/77 (92) 91 06/29/18 06:55 Nasal Cannula 2.0 28 06/29/18 06:55 96 Nasal Cannula 2.0 28 06/29/18 04:00 98.3 103 17 122/74 (90) 98 06/28/18 23:54 98.1 100 16 120/76 (91) 98 06/28/18 21:00 Nasal Cannula 2.0 Nasal Cannula 2.0 06/28/18 20:42 Nasal Cannula 2.0 28 06/28/18 20:41 97 Nasal Cannula 2.0 28 06/28/18 20:00 98.0 102 17 119/77 (91) 97 06/28/18 16:00 97.4 106 18 110/78 (89) 98 Intake and Output 06/28/18 06/29/18 19:00 07:00 Intake Total 600 ml 240 ml Output Total 570 ml 260 ml Balance 30 ml -20 ml Intake Oral 600 ml 240 ml Output Urine Total 550 ml 250 ml Other 20 ml 10 ml # Voids 1 # Bowel Movements 1 Height (Feet): 5 Height (Inches): 2.00 Weight (Pounds): 126 Cardiovascular: normal rate Vane Stephenson MD Jun 29, 2018 14:56
[2018-06-29 16:00] VITALS: BP 116/77
--- NOTE | 2018-06-29 16:03 | NUR ---
RADIOLOGY DEPT CHEST X-RAY DONE.-P.DYE
--- NOTE | 2018-06-29 16:04 | General Progress Note ---
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 and presumed malignant effusions --> review outside imaging and treatments patient has received --> outside labs and pathology to be reviewed --> defer to outpatient oncologist for further care, patient requires followup, has followup with [facility] --> recent surgery 05/2018, was date of initial dx # Thrombocytosis - likely related to reactive process, ovarian cancer potential hx of mets --> Continue to monitor for improvement --> plt trend: 860-->863-->917-->937 --> Trend CBC as needed --> Jak2 has been ordered --> Smear reviewed and no abnormalities noted. *Under manual differential # Anemia of chronic disease (or of iron deficiency) due to underlying chronic medical issues, multifactorial --> Anemia workup has been reviewed, --> No evidence of hemolysis is noted, peripheral smear has been reviewed. --> Hgb goal >7. Transfuse prn. --> Epogen or iron at this time is not particularly indicated --> Medications have been reviewed # Leukocytosis. Likely related to underlying infection versus reactive process. --> Peripheral has been ordered, no blasts are noted --> Medications have been reviewed --> Imaging has been reviewed --> Blood cultures and urine cultures prn --> has been started on abx, empiric treatment # Shortness of breath # Large bilateral pleural effusions --> thoracentesis eval with pleural fluid studies --> 06/18: Successful ultrasound-guided right thoracentesis, yielding 0.8 liters of fluid The timing of this note does not necessarily reflect the time of the patient was seen. Greatly appreciate consultation! Subjective Constitutional: Denies: no symptoms, chills, diaphoresis, fever, malaise, weakness, other HEENT: Denies: no symptoms, eye pain, blurred vision, tearing, double vision, ear pain, ear discharge, nose pain, nose congestion, throat pain, throat swelling, mouth pain, mouth swelling, other Cardiovascular: Denies: no symptoms, chest pain, edema, irregular heart rate, lightheadedness, palpitations, syncope, other Respiratory: Denies: no symptoms, cough, orthopnea, shortness of breath, SOB with excertion, SOB at rest, sputum, stridor, wheezing, other Gastrointestinal/Abdominal: Denies: no symptoms, abdomen distended, abdominal pain, black stools, tarry stools, blood in stool, constipated, diarrhea, difficulty swallowing, nausea, poor appetite, poor fluid intake, rectal bleeding , vomiting, other Neurologic/Psychiatric: Denies: no symptoms, anxiety, depressed, emotional problems, headache, numbness, paresthesia, pre-existing deficit, seizure, tingling, tremors, weakness, other Hematologic/Lymphatic: Denies: no symptoms, anemia, easy bleeding, easy bruising, other Allergies: Coded Allergies: No Known Allergies (Unverified , 06/17/18) Subjective 06/18: thoracentesis eval with pleural fluid studies today, plt remains elevated. 06/19: seen by bedside, no acute distress, no signs of pain. No pneumothorax is reported on CXR 06/22: Patient is is resting in bed with family at bed side. Patient has pain which is at a moderate level and tolerated on the Morphine. HIDA scan reveals, suspicious for acute cholecystitis. plt continue to be elevated and trending up. 06/23: seen by bedside, awake, comfortable, no acute distress, no events 06/24: HIDA reviewed >> suggestive of acute cholecystitis, no plans for GI procedures at this time, patient will need follow up imaging for her cirrhosis and ascites, continues to have abdominal pain 06/25: awake, comfortable, no acute distress. 06/26: No acute events, s/p cholecystostomy tube placement. 06/28: s/p cholecystostomy tube, CT and MRCP reviewed, no plans for ERCP given no dilated duct and poor prognosis Objective Last 24 Hour Vital Signs Date Time Temp Pulse Resp B/P (MAP) Pulse Ox O2 Delivery O2 Flow Rate FiO2 06/29/18 12:00 97.2 102 20 115/76 (89) 94 06/29/18 09:00 Nasal Cannula 2.0 Nasal Cannula 2.0 06/29/18 08:00 97.3 96 17 122/77 (92) 91 06/29/18 06:55 Nasal Cannula 2.0 28 06/29/18 06:55 96 Nasal Cannula 2.0 28 06/29/18 04:00 98.3 103 17 122/74 (90) 98 06/28/18 23:54 98.1 100 16 120/76 (91) 98 06/28/18 21:00 Nasal Cannula 2.0 Nasal Cannula 2.0 06/28/18 20:42 Nasal Cannula 2.0 28 06/28/18 20:41 97 Nasal Cannula 2.0 28 06/28/18 20:00 98.0 102 17 119/77 (91) 97 Intake and Output 06/28/18 06/29/18 19:00 07:00 Intake Total 600 ml 240 ml Output Total 570 ml 260 ml Balance 30 ml -20 ml Intake Oral 600 ml 240 ml Output Urine Total 550 ml 250 ml Other 20 ml 10 ml # Voids 1 # Bowel Movements 1 Height (Feet): 5 Height (Inches): 2.00 Weight (Pounds): 126 Objective Physical Exam General Appearance: no apparent distress, alert HEENT: normocephalic, atraumatic Neck: supple Respiratory/Chest: decreased breath sounds Cardiovascular/Chest: normal rate, regular rhythm Abdomen: non tender, soft Extremities: no edema Keegan Flores MD Jun 29, 2018 16:04
--- NOTE | 2018-06-29 16:05 | General Progress Note ---
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 and presumed malignant effusions --> review outside imaging and treatments patient has received --> outside labs and pathology to be reviewed --> defer to outpatient oncologist for further care, patient requires followup, has followup with [facility] --> recent surgery 05/2018, was date of initial dx # Thrombocytosis - likely related to reactive process, ovarian cancer potential hx of mets --> Continue to monitor for improvement --> plt trend: 860-->863-->917-->937 --> Trend CBC as needed --> Jak2 has been ordered --> Smear reviewed and no abnormalities noted. *Under manual differential # Anemia of chronic disease (or of iron deficiency) due to underlying chronic medical issues, multifactorial --> Anemia workup has been reviewed, --> No evidence of hemolysis is noted, peripheral smear has been reviewed. --> Hgb goal >7. Transfuse prn. --> Epogen or iron at this time is not particularly indicated --> Medications have been reviewed # Leukocytosis. Likely related to underlying infection versus reactive process. --> Peripheral has been ordered, no blasts are noted --> Medications have been reviewed --> Imaging has been reviewed --> Blood cultures and urine cultures prn --> has been started on abx, empiric treatment # Shortness of breath # Large bilateral pleural effusions --> thoracentesis eval with pleural fluid studies --> 06/18: Successful ultrasound-guided right thoracentesis, yielding 0.8 liters of fluid The timing of this note does not necessarily reflect the time of the patient was seen. Greatly appreciate consultation! Subjective Allergies: Coded Allergies: No Known Allergies (Unverified , 06/17/18) Subjective 06/18: thoracentesis eval with pleural fluid studies today, plt remains elevated. 06/19: seen by bedside, no acute distress, no signs of pain. No pneumothorax is reported on CXR 06/22: Patient is is resting in bed with family at bed side. Patient has pain which is at a moderate level and tolerated on the Morphine. HIDA scan reveals, suspicious for acute cholecystitis. plt continue to be elevated and trending up. 06/23: seen by bedside, awake, comfortable, no acute distress, no events 06/24: HIDA reviewed >> suggestive of acute cholecystitis, no plans for GI procedures at this time, patient will need follow up imaging for her cirrhosis and ascites, continues to have abdominal pain 06/25: awake, comfortable, no acute distress. 06/26: No acute events, s/p cholecystostomy tube placement. 06/28: s/p cholecystostomy tube, CT and MRCP reviewed, no plans for ERCP given no dilated duct and poor prognosis 06/29: seen by bedside, complains of abdominal pain . Objective Last 24 Hour Vital Signs Date Time Temp Pulse Resp B/P (MAP) Pulse Ox O2 Delivery O2 Flow Rate FiO2 06/29/18 12:00 97.2 102 20 115/76 (89) 94 06/29/18 09:00 Nasal Cannula 2.0 Nasal Cannula 2.0 06/29/18 08:00 97.3 96 17 122/77 (92) 91 06/29/18 06:55 Nasal Cannula 2.0 28 06/29/18 06:55 96 Nasal Cannula 2.0 28 06/29/18 04:00 98.3 103 17 122/74 (90) 98 06/28/18 23:54 98.1 100 16 120/76 (91) 98 06/28/18 21:00 Nasal Cannula 2.0 Nasal Cannula 2.0 06/28/18 20:42 Nasal Cannula 2.0 28 06/28/18 20:41 97 Nasal Cannula 2.0 28 06/28/18 20:00 98.0 102 17 119/77 (91) 97 Intake and Output 06/28/18 06/29/18 19:00 07:00 Intake Total 600 ml 240 ml Output Total 570 ml 260 ml Balance 30 ml -20 ml Intake Oral 600 ml 240 ml Output Urine Total 550 ml 250 ml Other 20 ml 10 ml # Voids 1 # Bowel Movements 1 Height (Feet): 5 Height (Inches): 2.00 Weight (Pounds): 126 Objective Physical Exam General Appearance: no apparent distress, alert HEENT: normocephalic, atraumatic Neck: supple Respiratory/Chest: decreased breath sounds Cardiovascular/Chest: normal rate, regular rhythm Abdomen: non tender, soft Extremities: no edema Keegan Flores MD Jun 29, 2018 16:05
--- NOTE | 2018-06-29 16:16 | Diagnostic Imaging Report ---
Indication: Dyspnea Comparison: 06/24/2018 A single view chest radiograph was obtained. Findings: There are bilateral pleural effusions present. Diaphragm is obscured. Heart may be slightly enlarged but is largely obscured. Bones are osteopenic. There is a percutaneous catheter projected over the right side of abdomen. IMPRESSION: Worsening bilateral pleural effusions.
--- NOTE | 2018-06-29 16:17 | Surgery Progress Note ---
Surgery Progress Note Subjective Additional Comments no acute events. comfortable. unfortunately daughter not at bedside when I came today to talk with her Objective Last 24 Hour Vital Signs Date Time Temp Pulse Resp B/P (MAP) Pulse Ox O2 Delivery O2 Flow Rate FiO2 06/29/18 16:00 97.7 98 17 116/77 (90) 94 06/29/18 12:00 97.2 102 20 115/76 (89) 94 06/29/18 09:00 Nasal Cannula 2.0 Nasal Cannula 2.0 06/29/18 08:00 97.3 96 17 122/77 (92) 91 06/29/18 06:55 Nasal Cannula 2.0 28 06/29/18 06:55 96 Nasal Cannula 2.0 28 06/29/18 04:00 98.3 103 17 122/74 (90) 98 06/28/18 23:54 98.1 100 16 120/76 (91) 98 06/28/18 21:00 Nasal Cannula 2.0 Nasal Cannula 2.0 06/28/18 20:42 Nasal Cannula 2.0 28 06/28/18 20:41 97 Nasal Cannula 2.0 28 06/28/18 20:00 98.0 102 17 119/77 (91) 97 I&O Intake and Output 06/28/18 06/29/18 19:00 07:00 Intake Total 600 ml 240 ml Output Total 570 ml 260 ml Balance 30 ml -20 ml Intake Oral 600 ml 240 ml Output Urine Total 550 ml 250 ml Other 20 ml 10 ml # Voids 1 # Bowel Movements 1 Drains: other Cardiovascular: RSR Respiratory: clear Abdomen: soft, non-tender, non-distended Extremities: other Plan Problems: (1) Cholecystitis Assessment & Plan: acute cholecystitis ovarian cancer with mets complicated medical and surgical history Cholelithiasis and gallbladder wall thickening. Note that recent hepatobiliary nuclear scan is positive for acute cholecystitis. Given the nodular and irregular appearance of the gallbladder wall, possibly a gallbladder neoplasm should also be considered Unusual enhancement of the biliary ductal hernandez, raising concern for cholangitis. Correlate with clinical history and findings cholecystotomy tube placed - Successful percutaneous cholecystostomy under ultrasound and fluoroscopic guidance. Note that aspiration of the gallbladder yielded approximately 15 mL of darshan pus given above no surgery recommended. cont current care tube care will follow with recs as results available thank you (2) Abdominal pain Rich Kiran Jun 29, 2018 16:17
[2018-06-29] MEDS: Morphine Sulfate 2mg/ml Inj(IV/IM USE ONLY) IVP PRN (17:59)
--- NOTE | 2018-06-29 19:20 | NUR ---
NURSE NOTES:Patient received A/A/AOX4 .Patient denies pain at this time . no sob/ no n/v noted . LH g#20 H/L AND RACG#18 H/L Patent and intact. right cholecystectomy in placed . landeros cath draining well to yellow urine 100 cc call light within reach . bed in low position at all times . will continue to monitor patient.
--- NOTE | 2018-06-29 19:20 | NUR ---
HAND-OFF: Report given to SCOOBY Escalera.
[2018-06-29] MEDS ORDERED: NS 275ml ONE ×2 (19:57→20:20)
[2018-06-29 20:00] VITALS: BP 117/79
--- NOTE | 2018-06-29 20:13 | NUR ---
NURSE NOTES:Patient right cholecystectomy tube in placed . and irrigate 10cc. will continue to monitor.
[2018-06-29] MEDS: Zolpidem 5mg tab ORAL PRN (21:17)
--- NOTE | 2018-06-29 21:52 | Cardiology Progress Note ---
Assessment/Plan Assessment/Plan 1. Sinus tachycardia, likely due to sepsis, low intravascular volume depletion due to low oncotic pressure, or tumor burden. 2. B/L pleural effusion, s/p thoracentesis 3. Metastatic ovarian cancer 4. FTT 5. Respiratory failure. 6. Encephalopathy 7. Moderate pulmonary HTN. 8. Sepsis, s/p cholecystostomy. Subjective Subjective No cardiac events is reported. Objective Last 24 Hour Vital Signs Date Time Temp Pulse Resp B/P (MAP) Pulse Ox O2 Delivery O2 Flow Rate FiO2 06/29/18 16:00 97.7 98 17 116/77 (90) 94 06/29/18 12:00 97.2 102 20 115/76 (89) 94 06/29/18 09:00 Nasal Cannula 2.0 Nasal Cannula 2.0 06/29/18 08:00 97.3 96 17 122/77 (92) 91 06/29/18 06:55 Nasal Cannula 2.0 28 06/29/18 06:55 96 Nasal Cannula 2.0 28 06/29/18 04:00 98.3 103 17 122/74 (90) 98 06/28/18 23:54 98.1 100 16 120/76 (91) 98 Intake and Output 06/28/18 06/29/18 18:59 06:59 Intake Total 600 ml 240 ml Output Total 570 ml 260 ml Balance 30 ml -20 ml Intake Oral 600 ml 240 ml Output Urine Total 550 ml 250 ml Other 20 ml 10 ml # Voids 1 # Bowel Movements 1 2D Echo: LVEF 65%, Grade I LVDD, pleural effusion, RVSP 48 mmHg Objective HEENT: Atraumatic and normocephalic. Anicteric. Pupils are equal, round, and reactive to light and accommodation. Extraocular muscles intact. NECK: JVP less than 5 cm. No carotid bruit. Carotid upstrokes 2+ bilaterally. CARDIOVASCULAR: Normal S1, S2. Regular rate and rhythm. Tachycardic. No murmurs, gallops, or rubs. LUNGS: Diminished breath sounds in both bases. ABDOMEN: Soft, nontender, and nondistended. No hepatosplenomegaly. Positive bowel sounds. An abdominal incision site is clean. EXTREMITIES: No evidence of edema, clubbing, or cyanosis. Andrew Man MD Jun 29, 2018 21:52
[2018-06-30] VITALS: BP 127/81
[2018-06-30 04:00] VITALS: BP 114/77
--- NOTE | 2018-06-30 07:30 | NUR ---
HAND-OFF: Report given to JAG Greenfield Patient in stable condition.
--- NOTE | 2018-06-30 07:35 | NUR ---
NURSE NOTES: WALKING ROUNDS DONE WITH OUTGOING RN. PATIENT AWAKE IN BED. CALL LIGHT WITHIN REACH. PATIENT REPOSITIONED IN BED.
[2018-06-30 08:00] VITALS: BP 117/78
[2018-06-30] MEDS: Bisacodyl EC 5mg tab ORAL SCH (09:32)
[2018-06-30] MEDS: Docusate 100mg cap ORAL SCH ×2 (09:32→17:47)
[2018-06-30] MEDS: Heparin 5000 units/ml inj SUBQ SCH ×2 (09:34→20:13)
--- NOTE | 2018-06-30 11:33 | Infectious Diseases Prog Note ---
Assessment/Plan Assessment/Plan A 1. Enterococcal , candidal UTI 2. Acute cholecystitis , Cholangitis 3. pleural effusion s/p thoracentesis 4. leucocytosis resolved 5. ovarian cancer 6. s/p IR guided cholecystotomy tube placement P 1. observe off antibiotic Subjective ROS Limited/Unobtainable: Yes Allergies: Coded Allergies: No Known Allergies (Unverified , 06/17/18) Objective Vital Signs Last 24 Hour Vital Signs Date Time Temp Pulse Resp B/P (MAP) Pulse Ox O2 Delivery O2 Flow Rate FiO2 06/30/18 09:00 Nasal Cannula 3.0 06/30/18 08:00 97.1 99 18 117/78 (91) 100 06/30/18 04:00 98.1 100 20 114/77 (89) 95 06/30/18 00:00 98.1 103 20 127/81 (96) 95 06/29/18 21:00 Nasal Cannula 2.0 Nasal Cannula 2.0 06/29/18 20:00 97.9 98 20 117/79 (92) 95 06/29/18 16:00 97.7 98 17 116/77 (90) 94 06/29/18 12:00 97.2 102 20 115/76 (89) 94 Height (Feet): 5 Height (Inches): 2.00 Weight (Pounds): 126 General Appearance: no acute distress HEENT: mucous membranes moist Respiratory/Chest: lungs clear Cardiovascular: normal rate Abdomen: soft, non tender, other - Cholecystostomy tube with small bloody drainage, without bile Extremities: no edema Neurologic/Psychiatric: other - sleeping Current Medications Medications (Trade) Dose Ordered Sig/Susana Route PRN Reason Start Time Stop Time Status Last Admin Dose Admin Acetaminophen (Tylenol) 500 mg Q4H PRN ORAL Mild Pain/Temp > 100.5 06/23/18 11:30 07/17/18 11:29 06/23/18 16:06 Bisacodyl (Dulcolax) 10 mg DAILY ORAL 06/24/18 09:00 07/20/18 08:59 06/30/18 09:32 Docusate Sodium (Colace) 100 mg TWICE A DAY ORAL 06/23/18 18:00 07/19/18 18:59 06/30/18 09:32 Furosemide (Lasix) 20 mg DAILY IV 06/26/18 09:00 07/18/18 08:59 06/30/18 09:32 Heparin Sodium (Porcine) (Heparin 5000 units/ml) 5,000 units EVERY 12 HOURS SUBQ 06/23/18 21:00 07/21/18 08:59 06/30/18 09:34 Magnesium Hydroxide (Mom) 30 ml Q4H PRN ORAL Constipation 06/23/18 14:30 07/19/18 18:29 Morphine Sulfate (Morphine Sulfate) 2 mg Q4H PRN IVP moderate pain 06/29/18 08:00 07/06/18 07:59 06/29/18 17:59 Morphine Sulfate (Morphine Sulfate) 4 mg Q4H PRN IVP severe pain 06/29/18 08:00 07/06/18 07:59 Pantoprazole (Protonix) 40 mg DAILY ORAL 06/24/18 09:00 07/18/18 08:59 06/30/18 09:32 Potassium Chloride (K-Dur) 40 meq TWICE A DAY ORAL 06/23/18 18:00 07/18/18 17:59 06/30/18 09:32 Zolpidem Tartrate (Ambien) 5 mg HSPRN PRN ORAL Insomnia 06/28/18 20:45 07/05/18 20:44 06/29/18 21:17 Eugenio Goss MD Jun 30, 2018 11:33
--- NOTE | 2018-06-30 11:33 | NUR ---
RD ASSESSMENT & RECOMMENDATIONS SEE CARE ACTIVITY FOR COMPLETE ASSESSMENT DAILY ESTIMATED NEEDS: Needs based on Cancer 56kg 30-35 kcals/kg 2876-1942 total kcals 1-2 g protein/kg 56-112 g total protein 25-30 mL/kg 1202-6448 total fluid mLs NUTRITION DIAGNOSIS: Increased kcal and protein needs r/t cancer as evidenced by pt w/ ovarian cancer s/p resection, currently w/ poor po intake. CURRENT DIET:Regular puree + Ensure Enlive TID PO DIET RECOMMENDATIONS: [place]/ Regular diet (texture per STOREROOM CLERK) ADDITIONAL RECOMMENDATIONS: 1) Obtain a calibrated bed scale wt-> pt w/ poor po 2) Add snacks in b/w meals + Ensure enlive w/ each meal 3) HgA1C for eval (BG 132-144) 4) STOREROOM CLERK eval / appropriate texture for improved po intake 5) Appetite stimulant if medically appropriate- poor PO 6) Monitor lytes closely, replete as needed- on lasix
[2018-06-30 12:00] VITALS: BP 123/82
--- NOTE | 2018-06-30 12:45 | GI Progress Note ---
Assessment/Plan Problems: (1) Cancer, metastatic ICD Codes: C79.9 - Secondary malignant neoplasm of unspecified site SNOMED: 658560746 (2) Abdominal pain ICD Codes: R10.9 - Unspecified abdominal pain SNOMED: 33635876 (3) Cirrhosis ICD Codes: K74.60 - Unspecified cirrhosis of liver SNOMED: 08118625 (4) Cholecystitis ICD Codes: K81.9 - Cholecystitis, unspecified SNOMED: 65633888 (5) Pleural effusion ICD Codes: J90 - Pleural effusion, not elsewhere classified SNOMED: 37698063 (6) Ovarian carcinoma ICD Codes: C56.9 - Malignant neoplasm of unspecified ovary SNOMED: 273001577 Qualifiers: Qualified Codes: C56.9 - Malignant neoplasm of unspecified ovary Status: doing well Status Narrative Discussed with Dr. Miller Assessment/Plan HIDA reviewed >> suggestive of acute cholecystitis Hx of serial paracentesis, ascites dx to be malignant at [place] s/p thoracentesis yielding .8L CT and MRCP reviewed s/p cholecystostomy tube no plans for ERCP given no dilated duct and poor prognosis dc planning surg input appreciated fu labs abx PT evaluation supportive care The patient was seen and examined at bedside and all new and available data was reviewed in the patients chart. I agree with the above findings, impression and plan. (Patient seen earlier today. Signature stamp does not reflect patient encounter time.). - Tramaine Miller MD Subjective Gastrointestinal/Abdominal: Reports: no symptoms Subjective Abdominal pain improved Objective Last 24 Hour Vital Signs Date Time Temp Pulse Resp B/P (MAP) Pulse Ox O2 Delivery O2 Flow Rate FiO2 06/30/18 12:00 97.6 98 18 123/82 (96) 100 06/30/18 09:00 Nasal Cannula 3.0 06/30/18 08:00 97.1 99 18 117/78 (91) 100 06/30/18 04:00 98.1 100 20 114/77 (89) 95 06/30/18 00:00 98.1 103 20 127/81 (96) 95 06/29/18 21:00 Nasal Cannula 2.0 Nasal Cannula 2.0 06/29/18 20:00 97.9 98 20 117/79 (92) 95 06/29/18 16:00 97.7 98 17 116/77 (90) 94 Intake and Output 06/29/18 06/30/18 19:00 07:00 Intake Total 200 ml 380 ml Output Total 655 ml 325 ml Balance -455 ml 55 ml Intake Oral 200 ml 380 ml Output Urine Total 650 ml 310 ml Other 5 ml 15 ml Height (Feet): 5 Height (Inches): 2.00 Weight (Pounds): 126 General Appearance: WD/WN, no apparent distress, alert Cardiovascular: normal rate Respiratory/Chest: normal breath sounds, no respiratory distress Abdominal Exam: normal bowel sounds, non tender, soft Extremities: normal range of motion, non-tender Objective Resting comfortably Ghanshyam Bryan NP Jun 30, 2018 12:45
--- NOTE | 2018-06-30 13:05 | Pulmonology Progress Note ---
Assessment/Plan Assessment/Plan Problem List: 1. Shortness of breath 2. Large bilateral pleural effusions -R thoracentesis 800 cc 06/18 -L thoracentesis 900 cc 06/26 3. ovarian cancer s/p resection with likely malignant ascites and presumed malignant effusions 4. Protein calorie malnutrition 5. Abdominal pain - acute cholecysitis Plan: -effusions have recurred. R cytology no cancer but given rate of recurrence, will have pleurx placed at least on one side -f/u cytology of L thoracentesis -monitor volumes -pain control Subjective ROS Limited/Unobtainable: Yes Interval Events: CXR with increased b/l effusions Allergies: Coded Allergies: No Known Allergies (Unverified , 06/17/18) Objective Last 24 Hour Vital Signs Date Time Temp Pulse Resp B/P (MAP) Pulse Ox O2 Delivery O2 Flow Rate FiO2 06/30/18 12:00 97.6 98 18 123/82 (96) 100 06/30/18 09:00 Nasal Cannula 3.0 06/30/18 08:00 97.1 99 18 117/78 (91) 100 06/30/18 04:00 98.1 100 20 114/77 (89) 95 06/30/18 00:00 98.1 103 20 127/81 (96) 95 06/29/18 21:00 Nasal Cannula 2.0 Nasal Cannula 2.0 06/29/18 20:00 97.9 98 20 117/79 (92) 95 06/29/18 16:00 97.7 98 17 116/77 (90) 94 Intake and Output 06/29/18 06/30/18 19:00 07:00 Intake Total 200 ml 380 ml Output Total 655 ml 325 ml Balance -455 ml 55 ml Intake Oral 200 ml 380 ml Output Urine Total 650 ml 310 ml Other 5 ml 15 ml HEENT: normocephalic, atraumatic Respiratory/Chest: decreased breath sounds Cardiovascular: normal rate, regular rhythm Abdomen: non distended Extremities: no edema Current Medications Medications (Trade) Dose Ordered Sig/Susana Route PRN Reason Start Time Stop Time Status Last Admin Dose Admin Acetaminophen (Tylenol) 500 mg Q4H PRN ORAL Mild Pain/Temp > 100.5 06/23/18 11:30 07/17/18 11:29 06/23/18 16:06 Bisacodyl (Dulcolax) 10 mg DAILY ORAL 06/24/18 09:00 07/20/18 08:59 06/30/18 09:32 Docusate Sodium (Colace) 100 mg TWICE A DAY ORAL 06/23/18 18:00 07/19/18 18:59 06/30/18 09:32 Furosemide (Lasix) 20 mg DAILY IV 06/26/18 09:00 07/18/18 08:59 06/30/18 09:32 Heparin Sodium (Porcine) (Heparin 5000 units/ml) 5,000 units EVERY 12 HOURS SUBQ 06/23/18 21:00 07/21/18 08:59 06/30/18 09:34 Magnesium Hydroxide (Mom) 30 ml Q4H PRN ORAL Constipation 06/23/18 14:30 07/19/18 18:29 Morphine Sulfate (Morphine Sulfate) 2 mg Q4H PRN IVP moderate pain 06/29/18 08:00 07/06/18 07:59 06/29/18 17:59 Morphine Sulfate (Morphine Sulfate) 4 mg Q4H PRN IVP severe pain 06/29/18 08:00 07/06/18 07:59 Pantoprazole (Protonix) 40 mg DAILY ORAL 06/24/18 09:00 07/18/18 08:59 06/30/18 09:32 Potassium Chloride (K-Dur) 40 meq TWICE A DAY ORAL 06/23/18 18:00 07/18/18 17:59 06/30/18 09:32 Zolpidem Tartrate (Ambien) 5 mg HSPRN PRN ORAL Insomnia 06/28/18 20:45 07/05/18 20:44 06/29/18 21:17 Phillip Patel MD Jun 30, 2018 13:05
--- NOTE | 2018-06-30 15:02 | NUR ---
NURSE NOTES: PATIENT REMAINS IN STABLE CONDITION. TURN SCHEDULE Q2H IN PROGRESS. TOLERATED WELL. SKIN REMAINS INTACT. SPR MATTRESS PLACED. ALL BONY PROMINENCES SUPPORTED. CALL LIGHT WITHIN REACH.APPETITE REMAINS POOR. FAMILY VISITS FREQUENTLY. UROSIL DRAINAGE DEVICE FLUSHED AND PATENT. CARRERO CATHETER SECURED AND PATENT.WILL CONTINUE TO MONITOR.
[2018-06-30 16:00] VITALS: BP 119/56
--- NOTE | 2018-06-30 16:29 | General Progress Note ---
Assessment/Plan Assessment/Plan (1) Intractable pain (2) Ovarian cancer Patient to be continued on Morphine. Dr. Breaux and he concurred. Subjective Date patient seen: Jun 30, 2018 Time patient seen: 04:15 - pm Allergies: Coded Allergies: No Known Allergies (Unverified , 06/17/18) Subjective Constitutional: Reports: weakness HEENT: Reports: no symptoms Respiratory: Reports: no symptoms Gastrointestinal/Abdominal: Reports: abdominal pain Genitourinary: Reports: no symptoms Neurologic/Psychiatric: Reports: weakness Endocrine: Reports: no symptoms Hematologic/Lymphatic: Reports: no symptoms Subjective Patient is in bed had c/o pain and received one dose of Morphine in the last 24hrs. Objective Last 24 Hour Vital Signs Date Time Temp Pulse Resp B/P (MAP) Pulse Ox O2 Delivery O2 Flow Rate FiO2 06/30/18 12:00 97.6 98 18 123/82 (96) 100 06/30/18 09:00 Nasal Cannula 3.0 06/30/18 08:00 97.1 99 18 117/78 (91) 100 06/30/18 04:00 98.1 100 20 114/77 (89) 95 06/30/18 00:00 98.1 103 20 127/81 (96) 95 06/29/18 21:00 Nasal Cannula 2.0 Nasal Cannula 2.0 06/29/18 20:00 97.9 98 20 117/79 (92) 95 Intake and Output 06/29/18 06/30/18 19:00 07:00 Intake Total 200 ml 380 ml Output Total 655 ml 325 ml Balance -455 ml 55 ml Intake Oral 200 ml 380 ml Output Urine Total 650 ml 310 ml Other 5 ml 15 ml Height (Feet): 5 Height (Inches): 2.00 Weight (Pounds): 126 Objective General Appearance: no apparent distress, alert EENT: PERRL/EOMI Neck: normal alignment, supple Cardiovascular: normal rate, regular rhythm Respiratory/Chest: decreased breath sounds Abdomen: tender Extremities: non-tender Neurologic: alert, responsive Skin: normal pigmentation Tenzin Foster Jun 30, 2018 16:29
--- NOTE | 2018-06-30 16:44 | Nephrology Progress Note ---
Assessment/Plan Problem List: (1) Pleural effusion (2) Respiratory distress (3) Ovarian carcinoma (4) Hyponatremia (5) Hypoalbuminemia Assessment HypoNatremia due to Edematous state HypoAlbuminemia and proteinuria Respiratory distress Pleural effusion likely malignant ascitis Ovarian carcinoma Plan no labs today landeros thoracentesis 24 h urine protein noted coreg stopped by Dr Man ! monitor labs low dose lasix k supplement Subjective ROS Limited/Unobtainable: No Constitutional: Reports: malaise Objective Objective Last 24 Hour Vital Signs Date Time Temp Pulse Resp B/P (MAP) Pulse Ox O2 Delivery O2 Flow Rate FiO2 06/30/18 12:00 97.6 98 18 123/82 (96) 100 06/30/18 09:00 Nasal Cannula 3.0 06/30/18 08:00 97.1 99 18 117/78 (91) 100 06/30/18 04:00 98.1 100 20 114/77 (89) 95 06/30/18 00:00 98.1 103 20 127/81 (96) 95 06/29/18 21:00 Nasal Cannula 2.0 Nasal Cannula 2.0 06/29/18 20:00 97.9 98 20 117/79 (92) 95 Intake and Output 06/29/18 06/30/18 19:00 07:00 Intake Total 200 ml 380 ml Output Total 655 ml 325 ml Balance -455 ml 55 ml Intake Oral 200 ml 380 ml Output Urine Total 650 ml 310 ml Other 5 ml 15 ml Height (Feet): 5 Height (Inches): 2.00 Weight (Pounds): 126 General Appearance: no apparent distress Respiratory/Chest: decreased breath sounds Abdomen: distended Objective no change Jae Walker MD Jun 30, 2018 16:44
--- NOTE | 2018-06-30 17:06 | General Progress Note ---
Assessment/Plan Problem List: (1) Ovarian carcinoma ICD Codes: C56.9 - Malignant neoplasm of unspecified ovary SNOMED: 781413770 Qualifiers: Qualified Codes: C56.9 - Malignant neoplasm of unspecified ovary (2) Respiratory distress ICD Codes: R06.03 - Acute respiratory distress SNOMED: 001366940 (3) Pleural effusion ICD Codes: J90 - Pleural effusion, not elsewhere classified SNOMED: 48902001 (4) Hypoalbuminemia ICD Codes: E88.09 - Other disorders of plasma-protein metabolism, not elsewhere classified SNOMED: 559608557 Status: progressing Assessment/Plan acute cholycystitis pleural effusion s/p resent ovarian removal and hysterectomy tube placed.pus is coming out afebrile carcinamatosis poor prognosis per dr jacobsen drain needs to be in place for 6 weeks Subjective Gastrointestinal/Abdominal: Reports: abdominal pain Allergies: Coded Allergies: No Known Allergies (Unverified , 06/17/18) Subjective abdominal pain sob Objective Last 24 Hour Vital Signs Date Time Temp Pulse Resp B/P (MAP) Pulse Ox O2 Delivery O2 Flow Rate FiO2 06/30/18 16:00 98.1 93 19 119/56 (77) 100 06/30/18 12:00 97.6 98 18 123/82 (96) 100 06/30/18 09:00 Nasal Cannula 3.0 06/30/18 08:00 97.1 99 18 117/78 (91) 100 06/30/18 04:00 98.1 100 20 114/77 (89) 95 06/30/18 00:00 98.1 103 20 127/81 (96) 95 06/29/18 21:00 Nasal Cannula 2.0 Nasal Cannula 2.0 06/29/18 20:00 97.9 98 20 117/79 (92) 95 Intake and Output 06/29/18 06/30/18 19:00 07:00 Intake Total 200 ml 380 ml Output Total 655 ml 325 ml Balance -455 ml 55 ml Intake Oral 200 ml 380 ml Output Urine Total 650 ml 310 ml Other 5 ml 15 ml Height (Feet): 5 Height (Inches): 2.00 Weight (Pounds): 126 Abdomen: tender Vane Stephenson MD Jun 30, 2018 17:06
--- NOTE | 2018-06-30 18:24 | Surgery Progress Note ---
Surgery Progress Note Subjective Additional Comments no acute events. improving. spoke with daughter at bedside today and updated on care Objective Last 24 Hour Vital Signs Date Time Temp Pulse Resp B/P (MAP) Pulse Ox O2 Delivery O2 Flow Rate FiO2 06/30/18 16:00 98.1 93 19 119/56 (77) 100 06/30/18 12:00 97.6 98 18 123/82 (96) 100 06/30/18 09:00 Nasal Cannula 3.0 06/30/18 08:00 97.1 99 18 117/78 (91) 100 06/30/18 04:00 98.1 100 20 114/77 (89) 95 06/30/18 00:00 98.1 103 20 127/81 (96) 95 06/29/18 21:00 Nasal Cannula 2.0 Nasal Cannula 2.0 06/29/18 20:00 97.9 98 20 117/79 (92) 95 I&O Intake and Output 06/29/18 06/30/18 19:00 07:00 Intake Total 200 ml 380 ml Output Total 655 ml 325 ml Balance -455 ml 55 ml Intake Oral 200 ml 380 ml Output Urine Total 650 ml 310 ml Other 5 ml 15 ml Dressing: other Wound: other Drains: other Cardiovascular: RSR Respiratory: clear Abdomen: soft, non-tender, present bowel sounds Extremities: other Plan Problems: (1) Cholecystitis Assessment & Plan: acute cholecystitis ovarian cancer with mets complicated medical and surgical history Cholelithiasis and gallbladder wall thickening. Note that recent hepatobiliary nuclear scan is positive for acute cholecystitis. Given the nodular and irregular appearance of the gallbladder wall, possibly a gallbladder neoplasm should also be considered Unusual enhancement of the biliary ductal hernandez, raising concern for cholangitis. Correlate with clinical history and findings cholecystotomy tube placed - Successful percutaneous cholecystostomy under ultrasound and fluoroscopic guidance. Note that aspiration of the gallbladder yielded approximately 15 mL of darshan pus given above no surgery recommended. cont current care tube care okay to d/c from surgical standpoint tube needs to stay in for 6 weeks then can d/c will follow with recs as results available thank you (2) Abdominal pain Rich Kiran Jun 30, 2018 18:24
--- NOTE | 2018-06-30 19:09 | NUR ---
HAND-OFF: Report given to BORIS BEST LVN.
[2018-06-30 20:00] VITALS: BP 147/83
[2018-06-30] MEDS: Zolpidem 5mg tab ORAL PRN (20:11)
--- NOTE | 2018-06-30 21:14 | General Progress Note ---
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 and presumed malignant effusions --> review outside imaging and treatments patient has received --> outside labs and pathology to be reviewed --> defer to outpatient oncologist for further care, patient requires followup, has followup with [facility] --> recent surgery 05/2018, was date of initial dx # Thrombocytosis - likely related to reactive process, ovarian cancer potential hx of mets --> Continue to monitor for improvement --> plt trend: 860-->863-->917-->937 --> Trend CBC as needed --> Jak2 has been ordered --> Smear reviewed and no abnormalities noted. *Under manual differential # Anemia of chronic disease (or of iron deficiency) due to underlying chronic medical issues, multifactorial --> Anemia workup has been reviewed, --> No evidence of hemolysis is noted, peripheral smear has been reviewed. --> Hgb goal >7. Transfuse prn. --> Epogen or iron at this time is not particularly indicated --> Medications have been reviewed # Leukocytosis. Likely related to underlying infection versus reactive process. --> Peripheral has been ordered, no blasts are noted --> Medications have been reviewed --> Imaging has been reviewed --> Blood cultures and urine cultures prn --> has been started on abx, empiric treatment # Shortness of breath # Large bilateral pleural effusions --> thoracentesis eval with pleural fluid studies --> 06/18: Successful ultrasound-guided right thoracentesis, yielding 0.8 liters of fluid The timing of this note does not necessarily reflect the time of the patient was seen. Greatly appreciate consultation! Subjective Constitutional: Denies: no symptoms, chills, diaphoresis, fever, malaise, weakness, other HEENT: Denies: no symptoms, eye pain, blurred vision, tearing, double vision, ear pain, ear discharge, nose pain, nose congestion, throat pain, throat swelling, mouth pain, mouth swelling, other Cardiovascular: Denies: no symptoms, chest pain, edema, irregular heart rate, lightheadedness, palpitations, syncope, other Respiratory: Denies: no symptoms, cough, orthopnea, shortness of breath, SOB with excertion, SOB at rest, sputum, stridor, wheezing, other Gastrointestinal/Abdominal: Denies: no symptoms, abdomen distended, abdominal pain, black stools, tarry stools, blood in stool, constipated, diarrhea, difficulty swallowing, nausea, poor appetite, poor fluid intake, rectal bleeding , vomiting, other Genitourinary: Denies: no symptoms, burning, discharge, frequency, flank pain, hematuria, incontinence, pain, urgency, other Neurologic/Psychiatric: Denies: no symptoms, anxiety, depressed, emotional problems, headache, numbness, paresthesia, pre-existing deficit, seizure, tingling, tremors, weakness, other Endocrine: Denies: no symptoms, excessive sweating, flushing, intolerance to cold, intolerance to heat, increased hunger, increased thirst, increased urine, unexplained weight gain, unexplained weight loss, other Hematologic/Lymphatic: Denies: no symptoms, anemia, easy bleeding, easy bruising, other Allergies: Coded Allergies: No Known Allergies (Unverified , 06/17/18) Subjective 06/18: thoracentesis eval with pleural fluid studies today, plt remains elevated. 06/19: seen by bedside, no acute distress, no signs of pain. No pneumothorax is reported on CXR 06/22: Patient is is resting in bed with family at bed side. Patient has pain which is at a moderate level and tolerated on the Morphine. HIDA scan reveals, suspicious for acute cholecystitis. plt continue to be elevated and trending up. 06/23: seen by bedside, awake, comfortable, no acute distress, no events 06/24: HIDA reviewed >> suggestive of acute cholecystitis, no plans for GI procedures at this time, patient will need follow up imaging for her cirrhosis and ascites, continues to have abdominal pain 06/25: awake, comfortable, no acute distress. 06/26: No acute events, s/p cholecystostomy tube placement. 06/28: s/p cholecystostomy tube, CT and MRCP reviewed, no plans for ERCP given no dilated duct and poor prognosis 06/29: seen by bedside, complains of abdominal pain . 06/30: seen by bedside, awake comfortable, no acute events. plt trending down Objective Last 24 Hour Vital Signs Date Time Temp Pulse Resp B/P (MAP) Pulse Ox O2 Delivery O2 Flow Rate FiO2 06/30/18 16:00 98.1 93 19 119/56 (77) 100 06/30/18 12:00 97.6 98 18 123/82 (96) 100 06/30/18 09:00 Nasal Cannula 3.0 06/30/18 08:00 97.1 99 18 117/78 (91) 100 06/30/18 04:00 98.1 100 20 114/77 (89) 95 06/30/18 00:00 98.1 103 20 127/81 (96) 95 Intake and Output 06/29/18 06/30/18 19:00 07:00 Intake Total 200 ml 380 ml Output Total 655 ml 325 ml Balance -455 ml 55 ml Intake Oral 200 ml 380 ml Output Urine Total 650 ml 310 ml Other 5 ml 15 ml Height (Feet): 5 Height (Inches): 2.00 Weight (Pounds): 126 Objective Physical Exam General Appearance: no apparent distress, alert HEENT: normocephalic, atraumatic Neck: supple Respiratory/Chest: decreased breath sounds Cardiovascular/Chest: normal rate, regular rhythm Abdomen: non tender, soft Extremities: no edema Keegan Flores MD Jun 30, 2018 21:14
--- NOTE | 2018-06-30 23:46 | Cardiology Progress Note ---
Assessment/Plan Assessment/Plan 1. Sinus tachycardia, likely due to sepsis, low intravascular volume depletion due to low oncotic pressure, or tumor burden. 2. B/L pleural effusion, s/p thoracentesis 3. Metastatic ovarian cancer 4. FTT 5. Respiratory failure. 6. Encephalopathy 7. Moderate pulmonary HTN. 8. Sepsis, s/p cholecystostomy. Subjective Subjective No cardiac events is reported. Objective Last 24 Hour Vital Signs Date Time Temp Pulse Resp B/P (MAP) Pulse Ox O2 Delivery O2 Flow Rate FiO2 06/30/18 21:00 Nasal Cannula 3.0 06/30/18 20:00 97.2 95 20 147/83 (104) 96 06/30/18 16:00 98.1 93 19 119/56 (77) 100 06/30/18 12:00 97.6 98 18 123/82 (96) 100 06/30/18 09:00 Nasal Cannula 3.0 06/30/18 08:00 97.1 99 18 117/78 (91) 100 06/30/18 04:00 98.1 100 20 114/77 (89) 95 06/30/18 00:00 98.1 103 20 127/81 (96) 95 Intake and Output 06/29/18 06/30/18 18:59 06:59 Intake Total 200 ml 380 ml Output Total 655 ml 325 ml Balance -455 ml 55 ml Intake Oral 200 ml 380 ml Output Urine Total 650 ml 310 ml Other 5 ml 15 ml 2D Echo: LVEF 65%, Grade I LVDD, pleural effusion, RVSP 48 mmHg Objective HEENT: Atraumatic and normocephalic. Anicteric. Pupils are equal, round, and reactive to light and accommodation. Extraocular muscles intact. NECK: JVP less than 5 cm. No carotid bruit. Carotid upstrokes 2+ bilaterally. CARDIOVASCULAR: Normal S1, S2. Regular rate and rhythm. Tachycardic. No murmurs, gallops, or rubs. LUNGS: Diminished breath sounds in both bases. ABDOMEN: Soft, nontender, and nondistended. No hepatosplenomegaly. Positive bowel sounds. An abdominal incision site is clean. EXTREMITIES: No evidence of edema, clubbing, or cyanosis. Andrew Man MD Jun 30, 2018 23:46
[2018-07-01] VITALS: BP 133/83
[2018-07-01 04:00] VITALS: BP 135/83
[2018-07-01 06:30] LABS: BASOPHILS % (AUTO) 0.8 % (0.0-2.0); EOSINOPHILS % (AUTO) 0.8 % (0.0-3.0); HEMATOCRIT 33.3 % (37.0-47.0); HEMOGLOBIN 11.1 G/DL (12.0-16.0); LYMPHOCYTES % (AUTO) 14.1 % (20.0-45.0); MEAN CORPUSCULAR VOLUME 89 FL (80-99); MONOCYTES % (AUTO) 7.9 % (1.0-10.0); NEUTROPHILS % (AUTO) 76.4 % (45.0-75.0); PLATELET COUNT 512 K/UL (150-450); RED BLOOD COUNT 3.74 M/UL (4.20-5.40); RED CELL DISTRIBUTION WIDTH 15.4 % (11.6-14.8)
[2018-07-01 07:19] LABS: ANION GAP 6 mmol/L (5-15); BLOOD UREA NITROGEN 19 mg/dL (7-18); CALCIUM 8.8 MG/DL (8.5-10.1); CARBON DIOXIDE 26 MMOL/L (21-32); CHLORIDE 99 MMOL/L (98-107); CREATININE 0.4 MG/DL (0.55-1.30); POTASSIUM 4.3 MMOL/L (3.5-5.1); SODIUM 131 MMOL/L (136-145)
--- NOTE | 2018-07-01 07:20 | NUR ---
HAND-OFF: Report given to Kerri Greenfield Patient in stable condition.
--- NOTE | 2018-07-01 07:30 | NUR ---
NURSE NOTES: WALKING ROUNDS DONE WITH OUTGOING RN. PATIENT AWAKE IN BED.DENIES ANY PAIN. CALL LIGHT WITHIN REACH. BED IN LOW AND LOCKED POSITION.
[2018-07-01 08:00] VITALS: BP 117/73
[2018-07-01 08:07] LABS: ALANINE AMINOTRANSFERASE 103 U/L (12-78); ALBUMIN 1.7 G/DL (3.4-5.0); ALKALINE PHOSPHATASE 1323 U/L (46-116); ASPARTATE AMINO TRANSFERASE 100 U/L (15-37); BILIRUBIN,DIRECT 0.4 MG/DL (0.0-0.3); BILIRUBIN,TOTAL 0.8 MG/DL (0.2-1.0)
[2018-07-01] MEDS: Docusate 100mg cap ORAL SCH ×2 (08:44→17:51)
[2018-07-01] MEDS: Bisacodyl EC 5mg tab ORAL SCH (08:44)
--- NOTE | 2018-07-01 08:48 | General Progress Note ---
Assessment/Plan Assessment/Plan (1) Intractable pain (2) Ovarian cancer Patient to be continued on Morphine. Dr. Breaux and he concurred. Subjective Date patient seen: Jul 01, 2018 Time patient seen: 07:15 - am Allergies: Coded Allergies: No Known Allergies (Unverified , 06/17/18) Subjective Constitutional: Reports: weakness HEENT: Reports: no symptoms Respiratory: Reports: no symptoms Gastrointestinal/Abdominal: Reports: abdominal pain Genitourinary: Reports: no symptoms Neurologic/Psychiatric: Reports: weakness Endocrine: Reports: no symptoms Hematologic/Lymphatic: Reports: no symptoms Subjective Patient continues to c/o abdominal pain which has been stable using the Morphine as needed. No new complaints at this time Objective Last 24 Hour Vital Signs Date Time Temp Pulse Resp B/P (MAP) Pulse Ox O2 Delivery O2 Flow Rate FiO2 07/01/18 08:00 96.5 100 18 117/73 (88) 97 07/01/18 04:00 97.4 95 20 135/83 (100) 97 07/01/18 00:00 97.2 92 20 133/83 (100) 98 06/30/18 21:00 Nasal Cannula 3.0 06/30/18 20:00 97.2 95 20 147/83 (104) 96 06/30/18 16:00 98.1 93 19 119/56 (77) 100 06/30/18 12:00 97.6 98 18 123/82 (96) 100 06/30/18 09:00 Nasal Cannula 3.0 Intake and Output 06/30/18 07/01/18 19:00 07:00 Intake Total 320 ml 340 ml Output Total 820 ml 310 ml Balance -500 ml 30 ml Intake Oral 320 ml 340 ml Output Urine Total 800 ml 300 ml Other 20 ml 10 ml # Voids 2 # Bowel Movements 3 1 Laboratory Tests 07/01/18 04:45: White Blood Count 8.0, Red Blood Count 3.74L, Hemoglobin 11.1L, Hematocrit 33.3L , Mean Corpuscular Volume 89, Mean Corpuscular Hemoglobin 29.8, Mean Corpuscular Hemoglobin Concent 33.5, Red Cell Distribution Width 15.4H, Platelet Count 512H, Mean Platelet Volume 5.0L, Neutrophils (%) (Auto) 76.4H, Lymphocytes (%) (Auto) 14.1L, Monocytes (%) (Auto) 7.9, Eosinophils (%) (Auto) 0.8, Basophils (%) (Auto) 0.8, Sodium Level 131L, Potassium Level 4.3, Chloride Level 99, Carbon Dioxide Level 26, Anion Gap 6, Blood Urea Nitrogen 19H, Creatinine 0.4L, Estimat Glomerular Filtration Rate , Glucose Level 112H, Calcium Level 8.8, Phosphorus Level 4.0, Magnesium Level 1.9, Total Bilirubin 0.8, Direct Bilirubin 0.4H, Aspartate Amino Transf (AST/SGOT) 100H, Alanine Aminotransferase (ALT/SGPT) 103H, Alkaline Phosphatase 1323H, Total Protein 5.6L , Albumin 1.7L Height (Feet): 5 Height (Inches): 2.00 Weight (Pounds): 126 Objective General Appearance: no apparent distress, alert EENT: PERRL/EOMI Neck: normal alignment, supple Cardiovascular: normal rate, regular rhythm Respiratory/Chest: decreased breath sounds Abdomen: tender Extremities: non-tender Neurologic: alert, responsive Skin: normal pigmentation Tenzin Foster Jul 01, 2018 08:48
--- NOTE | 2018-07-01 10:42 | GI Progress Note ---
Assessment/Plan Problems: (1) Cancer, metastatic ICD Codes: C79.9 - Secondary malignant neoplasm of unspecified site SNOMED: 115145230 (2) Abdominal pain ICD Codes: R10.9 - Unspecified abdominal pain SNOMED: 75506733 (3) Cirrhosis ICD Codes: K74.60 - Unspecified cirrhosis of liver SNOMED: 80742314 (4) Cholecystitis ICD Codes: K81.9 - Cholecystitis, unspecified SNOMED: 73545606 (5) Pleural effusion ICD Codes: J90 - Pleural effusion, not elsewhere classified SNOMED: 10609655 (6) Ovarian carcinoma ICD Codes: C56.9 - Malignant neoplasm of unspecified ovary SNOMED: 724841775 Qualifiers: Qualified Codes: C56.9 - Malignant neoplasm of unspecified ovary Status: stable Status Narrative Discussed with Dr. Miller Assessment/Plan HIDA reviewed >> suggestive of acute cholecystitis Hx of serial paracentesis, ascites dx to be malignant at [place] s/p thoracentesis yielding .8L CT and MRCP reviewed s/p cholecystostomy tube Thoracentesis pending today no plans for ERCP given no dilated duct and poor prognosis dc planning surg input appreciated fu labs abx PT evaluation supportive care The patient was seen and examined at bedside and all new and available data was reviewed in the patients chart. I agree with the above findings, impression and plan. (Patient seen earlier today. Signature stamp does not reflect patient encounter time.). - Tramaine Miller MD Subjective Subjective Abdominal pain improved Mild shortness of breath Objective Last 24 Hour Vital Signs Date Time Temp Pulse Resp B/P (MAP) Pulse Ox O2 Delivery O2 Flow Rate FiO2 07/01/18 09:21 Nasal Cannula 3.0 07/01/18 08:00 96.5 100 18 117/73 (88) 97 07/01/18 04:00 97.4 95 20 135/83 (100) 97 07/01/18 00:00 97.2 92 20 133/83 (100) 98 06/30/18 21:00 Nasal Cannula 3.0 06/30/18 20:00 97.2 95 20 147/83 (104) 96 06/30/18 16:00 98.1 93 19 119/56 (77) 100 06/30/18 12:00 97.6 98 18 123/82 (96) 100 Intake and Output 2/19/19 2/20/19 19:00 07:00 Intake Total 320 ml 340 ml Output Total 820 ml 310 ml Balance -500 ml 30 ml Intake Oral 320 ml 340 ml Output Urine Total 800 ml 300 ml Other 20 ml 10 ml # Voids 2 # Bowel Movements 3 1 Laboratory Tests Test 07/01/18 04:45 White Blood Count 8.0 K/UL (4.8-10.8) Red Blood Count 3.74 M/UL (4.20-5.40) L Hemoglobin 11.1 G/DL (12.0-16.0) L Hematocrit 33.3 % (37.0-47.0) L Mean Corpuscular Volume 89 FL (80-99) Mean Corpuscular Hemoglobin 29.8 PG (27.0-31.0) Mean Corpuscular Hemoglobin Concent 33.5 G/DL (32.0-36.0) Red Cell Distribution Width 15.4 % (11.6-14.8) H Platelet Count 512 K/UL (150-450) H Mean Platelet Volume 5.0 FL (6.5-10.1) L Neutrophils (%) (Auto) 76.4 % (45.0-75.0) H Lymphocytes (%) (Auto) 14.1 % (20.0-45.0) L Monocytes (%) (Auto) 7.9 % (1.0-10.0) Eosinophils (%) (Auto) 0.8 % (0.0-3.0) Basophils (%) (Auto) 0.8 % (0.0-2.0) Sodium Level 131 MMOL/L (136-145) L Potassium Level 4.3 MMOL/L (3.5-5.1) Chloride Level 99 MMOL/L (98-107) Carbon Dioxide Level 26 MMOL/L (21-32) Anion Gap 6 mmol/L (5-15) Blood Urea Nitrogen 19 mg/dL (7-18) H Creatinine 0.4 MG/DL (0.55-1.30) L Estimat Glomerular Filtration Rate mL/min (>60) Glucose Level 112 MG/DL (74-106) H Calcium Level 8.8 MG/DL (8.5-10.1) Phosphorus Level 4.0 MG/DL (2.5-4.9) Magnesium Level 1.9 MG/DL (1.8-2.4) Total Bilirubin 0.8 MG/DL (0.2-1.0) Direct Bilirubin 0.4 MG/DL (0.0-0.3) H Aspartate Amino Transf (AST/SGOT) 100 U/L (15-37) H Alanine Aminotransferase (ALT/SGPT) 103 U/L (12-78) H Alkaline Phosphatase 1323 U/L (46-116) H Total Protein 5.6 G/DL (6.4-8.2) L Albumin 1.7 G/DL (3.4-5.0) L Height (Feet): 5 Height (Inches): 2.00 Weight (Pounds): 126 General Appearance: WD/WN, no apparent distress, alert Cardiovascular: normal rate Respiratory/Chest: normal breath sounds, no respiratory distress Abdominal Exam: normal bowel sounds, non tender, soft Extremities: normal range of motion, non-tender Objective Resting comfortably Ghanshyam Bryan NP Jul 01, 2018 10:42
[2018-07-01 12:00] VITALS: BP 107/75
--- NOTE | 2018-07-01 12:01 | Infectious Diseases Prog Note ---
Assessment/Plan Assessment/Plan A 1. Enterococcal , candidal UTI 2. Acute cholecystitis , Cholangitis 3. pleural effusion s/p thoracentesis 4. leucocytosis resolved 5. ovarian cancer 6. s/p IR guided cholecystotomy tube placement P 1. observe off antibiotic 2. case was D/W Interventional radiologist, agree with chest catheter placement for recurrent effusion Subjective ROS Limited/Unobtainable: Yes Constitutional: Reports: no symptoms Gastrointestinal/Abdominal: Reports: other - epiogastric pain Allergies: Coded Allergies: No Known Allergies (Unverified , 06/17/18) Objective Vital Signs Last 24 Hour Vital Signs Date Time Temp Pulse Resp B/P (MAP) Pulse Ox O2 Delivery O2 Flow Rate FiO2 07/01/18 11:44 98 Nasal Cannula 2.0 28 07/01/18 09:21 Nasal Cannula 3.0 07/01/18 08:00 96.5 100 18 117/73 (88) 97 07/01/18 04:00 97.4 95 20 135/83 (100) 97 07/01/18 00:00 97.2 92 20 133/83 (100) 98 06/30/18 21:00 Nasal Cannula 3.0 06/30/18 20:00 97.2 95 20 147/83 (104) 96 06/30/18 16:00 98.1 93 19 119/56 (77) 100 06/30/18 12:00 97.6 98 18 123/82 (96) 100 Height (Feet): 5 Height (Inches): 2.00 Weight (Pounds): 126 General Appearance: no acute distress HEENT: mucous membranes moist Respiratory/Chest: lungs clear Cardiovascular: normal rate Abdomen: other - soft, Cholecystostomy tube Extremities: no edema Neurologic/Psychiatric: alert, responsive Laboratory Tests Test 07/01/18 04:45 White Blood Count 8.0 K/UL (4.8-10.8) Red Blood Count 3.74 M/UL (4.20-5.40) L Hemoglobin 11.1 G/DL (12.0-16.0) L Hematocrit 33.3 % (37.0-47.0) L Mean Corpuscular Volume 89 FL (80-99) Mean Corpuscular Hemoglobin 29.8 PG (27.0-31.0) Mean Corpuscular Hemoglobin Concent 33.5 G/DL (32.0-36.0) Red Cell Distribution Width 15.4 % (11.6-14.8) H Platelet Count 512 K/UL (150-450) H Mean Platelet Volume 5.0 FL (6.5-10.1) L Neutrophils (%) (Auto) 76.4 % (45.0-75.0) H Lymphocytes (%) (Auto) 14.1 % (20.0-45.0) L Monocytes (%) (Auto) 7.9 % (1.0-10.0) Eosinophils (%) (Auto) 0.8 % (0.0-3.0) Basophils (%) (Auto) 0.8 % (0.0-2.0) Sodium Level 131 MMOL/L (136-145) L Potassium Level 4.3 MMOL/L (3.5-5.1) Chloride Level 99 MMOL/L (98-107) Carbon Dioxide Level 26 MMOL/L (21-32) Anion Gap 6 mmol/L (5-15) Blood Urea Nitrogen 19 mg/dL (7-18) H Creatinine 0.4 MG/DL (0.55-1.30) L Estimat Glomerular Filtration Rate mL/min (>60) Glucose Level 112 MG/DL (74-106) H Calcium Level 8.8 MG/DL (8.5-10.1) Phosphorus Level 4.0 MG/DL (2.5-4.9) Magnesium Level 1.9 MG/DL (1.8-2.4) Total Bilirubin 0.8 MG/DL (0.2-1.0) Direct Bilirubin 0.4 MG/DL (0.0-0.3) H Aspartate Amino Transf (AST/SGOT) 100 U/L (15-37) H Alanine Aminotransferase (ALT/SGPT) 103 U/L (12-78) H Alkaline Phosphatase 1323 U/L (46-116) H Total Protein 5.6 G/DL (6.4-8.2) L Albumin 1.7 G/DL (3.4-5.0) L Current Medications Medications (Trade) Dose Ordered Sig/Susana Route PRN Reason Start Time Stop Time Status Last Admin Dose Admin Acetaminophen (Tylenol) 500 mg Q4H PRN ORAL Mild Pain/Temp > 100.5 06/23/18 11:30 07/17/18 11:29 06/23/18 16:06 Bisacodyl (Dulcolax) 10 mg DAILY ORAL 06/24/18 09:00 07/20/18 08:59 07/01/18 08:44 Docusate Sodium (Colace) 100 mg TWICE A DAY ORAL 06/23/18 18:00 07/19/18 18:59 07/01/18 08:44 Furosemide (Lasix) 20 mg DAILY IV 06/26/18 09:00 07/18/18 08:59 07/01/18 08:44 Heparin Sodium (Porcine) (Heparin 5000 units/ml) 5,000 units EVERY 12 HOURS SUBQ 06/23/18 21:00 07/21/18 08:59 06/30/18 20:13 Magnesium Hydroxide (Mom) 30 ml Q4H PRN ORAL Constipation 06/23/18 14:30 07/19/18 18:29 Morphine Sulfate (Morphine Sulfate) 2 mg Q4H PRN IVP moderate pain 06/29/18 08:00 07/06/18 07:59 06/29/18 17:59 Morphine Sulfate (Morphine Sulfate) 4 mg Q4H PRN IVP severe pain 06/29/18 08:00 07/06/18 07:59 Pantoprazole (Protonix) 40 mg DAILY ORAL 06/24/18 09:00 07/18/18 08:59 07/01/18 08:44 Potassium Chloride (K-Dur) 40 meq TWICE A DAY ORAL 06/23/18 18:00 07/18/18 17:59 07/01/18 08:44 Zolpidem Tartrate (Ambien) 5 mg HSPRN PRN ORAL Insomnia 06/28/18 20:45 07/05/18 20:44 06/30/18 20:11 Eugenio Goss MD Jul 01, 2018 12:01
--- NOTE | 2018-07-01 13:29 | Nephrology Progress Note ---
Assessment/Plan Problem List: (1) Pleural effusion (2) Respiratory distress (3) Ovarian carcinoma (4) Hyponatremia (5) Hypoalbuminemia Assessment HypoNatremia due to Edematous state HypoAlbuminemia and proteinuria Respiratory distress Pleural effusion likely malignant ascitis Ovarian carcinoma Plan Na lower- try 3% Saline 250 cc landeros thoracentesis 24 h urine protein noted coreg stopped by Dr Man ! monitor labs low dose lasix k supplement Subjective ROS Limited/Unobtainable: No Constitutional: Reports: malaise, weakness Objective Objective Last 24 Hour Vital Signs Date Time Temp Pulse Resp B/P (MAP) Pulse Ox O2 Delivery O2 Flow Rate FiO2 07/01/18 12:00 97.4 103 18 107/75 (86) 97 07/01/18 11:44 Nasal Cannula 2.0 28 07/01/18 11:44 98 Nasal Cannula 2.0 28 07/01/18 09:21 Nasal Cannula 3.0 07/01/18 08:00 96.5 100 18 117/73 (88) 97 07/01/18 04:00 97.4 95 20 135/83 (100) 97 07/01/18 00:00 97.2 92 20 133/83 (100) 98 06/30/18 21:00 Nasal Cannula 3.0 06/30/18 20:00 97.2 95 20 147/83 (104) 96 06/30/18 16:00 98.1 93 19 119/56 (77) 100 Intake and Output 06/30/18 07/01/18 19:00 07:00 Intake Total 320 ml 340 ml Output Total 820 ml 310 ml Balance -500 ml 30 ml Intake Oral 320 ml 340 ml Output Urine Total 800 ml 300 ml Other 20 ml 10 ml # Voids 2 # Bowel Movements 3 1 Laboratory Tests 07/01/18 04:45: White Blood Count 8.0, Red Blood Count 3.74L, Hemoglobin 11.1L, Hematocrit 33.3L , Mean Corpuscular Volume 89, Mean Corpuscular Hemoglobin 29.8, Mean Corpuscular Hemoglobin Concent 33.5, Red Cell Distribution Width 15.4H, Platelet Count 512H, Mean Platelet Volume 5.0L, Neutrophils (%) (Auto) 76.4H, Lymphocytes (%) (Auto) 14.1L, Monocytes (%) (Auto) 7.9, Eosinophils (%) (Auto) 0.8, Basophils (%) (Auto) 0.8, Sodium Level 131L, Potassium Level 4.3, Chloride Level 99, Carbon Dioxide Level 26, Anion Gap 6, Blood Urea Nitrogen 19H, Creatinine 0.4L, Estimat Glomerular Filtration Rate , Glucose Level 112H, Calcium Level 8.8, Phosphorus Level 4.0, Magnesium Level 1.9, Total Bilirubin 0.8, Direct Bilirubin 0.4H, Aspartate Amino Transf (AST/SGOT) 100H, Alanine Aminotransferase (ALT/SGPT) 103H, Alkaline Phosphatase 1323H, Total Protein 5.6L , Albumin 1.7L Height (Feet): 5 Height (Inches): 2.00 Weight (Pounds): 126 General Appearance: no apparent distress, lethargic Cardiovascular: tachycardia Respiratory/Chest: decreased breath sounds Abdomen: soft Objective no change Jae Walker MD Jul 01, 2018 13:28
--- NOTE | 2018-07-01 14:50 | Pulmonology Progress Note ---
Assessment/Plan Assessment/Plan Problem List: 1. Shortness of breath 2. Large bilateral pleural effusions -R thoracentesis 800 cc 06/18 -L thoracentesis 900 cc 06/26 3. ovarian cancer s/p resection with likely malignant ascites and presumed malignant effusions 4. Protein calorie malnutrition 5. Abdominal pain - acute cholecysitis Plan: -effusions have recurred. R cytology no cancer but given rate of recurrence, will have pleurx placed at least on one side -f/u cytology of L thoracentesis -monitor volumes -pain control Case d/w radiology, planned for tomorrow Subjective ROS Limited/Unobtainable: Yes Interval Events: awating pleurx placement, planned for tomorrow Allergies: Coded Allergies: No Known Allergies (Unverified , 06/17/18) Objective Last 24 Hour Vital Signs Date Time Temp Pulse Resp B/P (MAP) Pulse Ox O2 Delivery O2 Flow Rate FiO2 07/01/18 12:00 97.4 103 18 107/75 (86) 97 07/01/18 11:44 Nasal Cannula 2.0 28 07/01/18 11:44 98 Nasal Cannula 2.0 28 07/01/18 09:21 Nasal Cannula 3.0 07/01/18 08:00 96.5 100 18 117/73 (88) 97 07/01/18 04:00 97.4 95 20 135/83 (100) 97 07/01/18 00:00 97.2 92 20 133/83 (100) 98 06/30/18 21:00 Nasal Cannula 3.0 06/30/18 20:00 97.2 95 20 147/83 (104) 96 06/30/18 16:00 98.1 93 19 119/56 (77) 100 Intake and Output 06/30/18 07/01/18 19:00 07:00 Intake Total 320 ml 340 ml Output Total 820 ml 310 ml Balance -500 ml 30 ml Intake Oral 320 ml 340 ml Output Urine Total 800 ml 300 ml Other 20 ml 10 ml # Voids 2 # Bowel Movements 3 1 General Appearance: WD/WN, no acute distress HEENT: normocephalic, mucous membranes moist, PERRL Respiratory/Chest: decreased breath sounds Cardiovascular: normal rate, regular rhythm Abdomen: normal bowel sounds Extremities: no edema Laboratory Tests 07/01/18 04:45: White Blood Count 8.0, Red Blood Count 3.74L, Hemoglobin 11.1L, Hematocrit 33.3L , Mean Corpuscular Volume 89, Mean Corpuscular Hemoglobin 29.8, Mean Corpuscular Hemoglobin Concent 33.5, Red Cell Distribution Width 15.4H, Platelet Count 512H, Mean Platelet Volume 5.0L, Neutrophils (%) (Auto) 76.4H, Lymphocytes (%) (Auto) 14.1L, Monocytes (%) (Auto) 7.9, Eosinophils (%) (Auto) 0.8, Basophils (%) (Auto) 0.8, Sodium Level 131L, Potassium Level 4.3, Chloride Level 99, Carbon Dioxide Level 26, Anion Gap 6, Blood Urea Nitrogen 19H, Creatinine 0.4L, Estimat Glomerular Filtration Rate , Glucose Level 112H, Calcium Level 8.8, Phosphorus Level 4.0, Magnesium Level 1.9, Total Bilirubin 0.8, Direct Bilirubin 0.4H, Aspartate Amino Transf (AST/SGOT) 100H, Alanine Aminotransferase (ALT/SGPT) 103H, Alkaline Phosphatase 1323H, Total Protein 5.6L , Albumin 1.7L Current Medications Medications (Trade) Dose Ordered Sig/Susana Route PRN Reason Start Time Stop Time Status Last Admin Dose Admin Acetaminophen (Tylenol) 500 mg Q4H PRN ORAL Mild Pain/Temp > 100.5 06/23/18 11:30 07/17/18 11:29 06/23/18 16:06 Bisacodyl (Dulcolax) 10 mg DAILY ORAL 06/24/18 09:00 07/20/18 08:59 07/01/18 08:44 Docusate Sodium (Colace) 100 mg TWICE A DAY ORAL 06/23/18 18:00 07/19/18 18:59 07/01/18 08:44 Furosemide (Lasix) 20 mg DAILY IV 06/26/18 09:00 07/18/18 08:59 07/01/18 08:44 Heparin Sodium (Porcine) (Heparin 5000 units/ml) 5,000 units EVERY 12 HOURS SUBQ 06/23/18 21:00 07/21/18 08:59 06/30/18 20:13 Magnesium Hydroxide (Mom) 30 ml Q4H PRN ORAL Constipation 06/23/18 14:30 07/19/18 18:29 Morphine Sulfate (Morphine Sulfate) 2 mg Q4H PRN IVP moderate pain 06/29/18 08:00 07/06/18 07:59 06/29/18 17:59 Morphine Sulfate (Morphine Sulfate) 4 mg Q4H PRN IVP severe pain 06/29/18 08:00 07/06/18 07:59 Pantoprazole (Protonix) 40 mg DAILY ORAL 06/24/18 09:00 07/18/18 08:59 07/01/18 08:44 Potassium Chloride (K-Dur) 40 meq TWICE A DAY ORAL 06/23/18 18:00 07/18/18 17:59 07/01/18 08:44 Sodium Chloride 250 ml @ 30 mls/hr ONCE IV 07/01/18 16:00 07/01/18 23:59 Zolpidem Tartrate (Ambien) 5 mg HSPRN PRN ORAL Insomnia 06/28/18 20:45 07/05/18 20:44 06/30/18 20:11 Phillip Patel MD Jul 01, 2018 14:50
[2018-07-01] MEDS: Heparin 5000 units/ml inj SUBQ SCH ×2 (14:57→21:25)
--- NOTE | 2018-07-01 15:09 | Surgery Progress Note ---
Surgery Progress Note Subjective Additional Comments no acute events. stable. Objective Last 24 Hour Vital Signs Date Time Temp Pulse Resp B/P (MAP) Pulse Ox O2 Delivery O2 Flow Rate FiO2 07/01/18 12:00 97.4 103 18 107/75 (86) 97 07/01/18 11:44 Nasal Cannula 2.0 28 07/01/18 11:44 98 Nasal Cannula 2.0 28 07/01/18 09:21 Nasal Cannula 3.0 07/01/18 08:00 96.5 100 18 117/73 (88) 97 07/01/18 04:00 97.4 95 20 135/83 (100) 97 07/01/18 00:00 97.2 92 20 133/83 (100) 98 06/30/18 21:00 Nasal Cannula 3.0 06/30/18 20:00 97.2 95 20 147/83 (104) 96 06/30/18 16:00 98.1 93 19 119/56 (77) 100 I&O Intake and Output 06/30/18 07/01/18 19:00 07:00 Intake Total 320 ml 340 ml Output Total 820 ml 310 ml Balance -500 ml 30 ml Intake Oral 320 ml 340 ml Output Urine Total 800 ml 300 ml Other 20 ml 10 ml # Voids 2 # Bowel Movements 3 1 Dressing: other Wound: other Drains: other Cardiovascular: RSR Respiratory: clear Abdomen: soft, non-tender, present bowel sounds, non-distended Extremities: no cyanosis Laboratory Tests Test 07/01/18 04:45 White Blood Count 8.0 K/UL (4.8-10.8) Red Blood Count 3.74 M/UL (4.20-5.40) L Hemoglobin 11.1 G/DL (12.0-16.0) L Hematocrit 33.3 % (37.0-47.0) L Mean Corpuscular Volume 89 FL (80-99) Mean Corpuscular Hemoglobin 29.8 PG (27.0-31.0) Mean Corpuscular Hemoglobin Concent 33.5 G/DL (32.0-36.0) Red Cell Distribution Width 15.4 % (11.6-14.8) H Platelet Count 512 K/UL (150-450) H Mean Platelet Volume 5.0 FL (6.5-10.1) L Neutrophils (%) (Auto) 76.4 % (45.0-75.0) H Lymphocytes (%) (Auto) 14.1 % (20.0-45.0) L Monocytes (%) (Auto) 7.9 % (1.0-10.0) Eosinophils (%) (Auto) 0.8 % (0.0-3.0) Basophils (%) (Auto) 0.8 % (0.0-2.0) Sodium Level 131 MMOL/L (136-145) L Potassium Level 4.3 MMOL/L (3.5-5.1) Chloride Level 99 MMOL/L (98-107) Carbon Dioxide Level 26 MMOL/L (21-32) Anion Gap 6 mmol/L (5-15) Blood Urea Nitrogen 19 mg/dL (7-18) H Creatinine 0.4 MG/DL (0.55-1.30) L Estimat Glomerular Filtration Rate mL/min (>60) Glucose Level 112 MG/DL (74-106) H Calcium Level 8.8 MG/DL (8.5-10.1) Phosphorus Level 4.0 MG/DL (2.5-4.9) Magnesium Level 1.9 MG/DL (1.8-2.4) Total Bilirubin 0.8 MG/DL (0.2-1.0) Direct Bilirubin 0.4 MG/DL (0.0-0.3) H Aspartate Amino Transf (AST/SGOT) 100 U/L (15-37) H Alanine Aminotransferase (ALT/SGPT) 103 U/L (12-78) H Alkaline Phosphatase 1323 U/L (46-116) H Total Protein 5.6 G/DL (6.4-8.2) L Albumin 1.7 G/DL (3.4-5.0) L Plan Problems: (1) Cholecystitis Assessment & Plan: acute cholecystitis ovarian cancer with mets complicated medical and surgical history Cholelithiasis and gallbladder wall thickening. Note that recent hepatobiliary nuclear scan is positive for acute cholecystitis. Given the nodular and irregular appearance of the gallbladder wall, possibly a gallbladder neoplasm should also be considered Unusual enhancement of the biliary ductal hernandez, raising concern for cholangitis. Correlate with clinical history and findings cholecystotomy tube placed - Successful percutaneous cholecystostomy under ultrasound and fluoroscopic guidance. Note that aspiration of the gallbladder yielded approximately 15 mL of darshan pus given above no surgery recommended. cont current care tube care okay to d/c from surgical standpoint tube needs to stay in for 6 weeks then can d/c will follow with recs as results available thank you (2) Abdominal pain Rich Kiran Jul 01, 2018 15:09
--- NOTE | 2018-07-01 15:51 | General Progress Note ---
Assessment/Plan Problem List: (1) Ovarian carcinoma ICD Codes: C56.9 - Malignant neoplasm of unspecified ovary SNOMED: 230521867 Qualifiers: Qualified Codes: C56.9 - Malignant neoplasm of unspecified ovary (2) Respiratory distress ICD Codes: R06.03 - Acute respiratory distress SNOMED: 291620884 (3) Pleural effusion ICD Codes: J90 - Pleural effusion, not elsewhere classified SNOMED: 75648615 (4) Hypoalbuminemia ICD Codes: E88.09 - Other disorders of plasma-protein metabolism, not elsewhere classified SNOMED: 861817099 Status: progressing Assessment/Plan acute cholycystitis pleural effusion s/p rcent ovarian removal and hysterectomy tube placed.pus is still coming out afebrile carcinamatosis per dr jacobsen drain needs to be in place for 6 weeks dc to snf w drain Subjective ROS Limited/Unobtainable: Yes Gastrointestinal/Abdominal: Reports: abdominal pain Allergies: Coded Allergies: No Known Allergies (Unverified , 06/17/18) Subjective abdominal pain sob Objective Last 24 Hour Vital Signs Date Time Temp Pulse Resp B/P (MAP) Pulse Ox O2 Delivery O2 Flow Rate FiO2 07/01/18 12:00 97.4 103 18 107/75 (86) 97 07/01/18 11:44 Nasal Cannula 2.0 28 07/01/18 11:44 98 Nasal Cannula 2.0 28 07/01/18 09:21 Nasal Cannula 3.0 07/01/18 08:00 96.5 100 18 117/73 (88) 97 07/01/18 04:00 97.4 95 20 135/83 (100) 97 07/01/18 00:00 97.2 92 20 133/83 (100) 98 06/30/18 21:00 Nasal Cannula 3.0 06/30/18 20:00 97.2 95 20 147/83 (104) 96 06/30/18 16:00 98.1 93 19 119/56 (77) 100 Intake and Output 06/30/18 07/01/18 19:00 07:00 Intake Total 320 ml 340 ml Output Total 820 ml 310 ml Balance -500 ml 30 ml Intake Oral 320 ml 340 ml Output Urine Total 800 ml 300 ml Other 20 ml 10 ml # Voids 2 # Bowel Movements 3 1 Laboratory Tests 07/01/18 04:45: White Blood Count 8.0, Red Blood Count 3.74L, Hemoglobin 11.1L, Hematocrit 33.3L , Mean Corpuscular Volume 89, Mean Corpuscular Hemoglobin 29.8, Mean Corpuscular Hemoglobin Concent 33.5, Red Cell Distribution Width 15.4H, Platelet Count 512H, Mean Platelet Volume 5.0L, Neutrophils (%) (Auto) 76.4H, Lymphocytes (%) (Auto) 14.1L, Monocytes (%) (Auto) 7.9, Eosinophils (%) (Auto) 0.8, Basophils (%) (Auto) 0.8, Sodium Level 131L, Potassium Level 4.3, Chloride Level 99, Carbon Dioxide Level 26, Anion Gap 6, Blood Urea Nitrogen 19H, Creatinine 0.4L, Estimat Glomerular Filtration Rate , Glucose Level 112H, Calcium Level 8.8, Phosphorus Level 4.0, Magnesium Level 1.9, Total Bilirubin 0.8, Direct Bilirubin 0.4H, Aspartate Amino Transf (AST/SGOT) 100H, Alanine Aminotransferase (ALT/SGPT) 103H, Alkaline Phosphatase 1323H, Total Protein 5.6L , Albumin 1.7L Height (Feet): 5 Height (Inches): 2.00 Weight (Pounds): 126 Neck: supple Cardiovascular: normal rate Respiratory/Chest: lungs clear Abdomen: tender Vane Stephenson MD Jul 01, 2018 15:51
[2018-07-01 16:00] VITALS: BP 124/83
[2018-07-01] MEDS ORDERED: NaCl 3% 500ml 250 ML IV SCH (16:00)
[2018-07-01] MEDS: Morphine Sulfate 2mg/ml Inj(IV/IM USE ONLY) IVP PRN (16:24)
--- NOTE | 2018-07-01 16:38 | NUR ---
CASE MANAGEMENT:REVIEW 07/01/18 SI: RESP DISTRESS. PLEURAL EFF(S/P THORACENTESIS) HYPONATREMIA. HYPOALBUMINEMIA 97.6 98 18 124/83 97% ON 2L/NC NA-131 AST/ALT+100/103 ALB-1.7 IS: IV NACL 3% 250CC @ 30/HR IV MORPHINE Q4HRS PRN IV LASIX QD HEPARIN SQ Q12 K-DUR PO BID : MED/SURG STATUS 3 EAST DCP: PATIENT IS FROM HOME PLAN: NPO PLAN FOR TUNNELED LEFT PLEURAL DRAINAGE CATHETER, POSSIBLE
--- NOTE | 2018-07-01 16:54 | NUR ---
*-* INSURANCE *-* UPDATED CLINICALS,REVIEWS FAXED TO: BETTY BARTLETT#: BAYLEE NCM: BAYLEE F#: [phone]
--- NOTE | 2018-07-01 18:27 | NUR ---
NURSE NOTES: PATIENT REMAINS STABLE; POOR APPETITE. HAVE BEEN ENCOURAGING WITH PT.'S DTR TO DRINK THE ENSURE ENLIVE. WILL TAKE SMALL SIPS AT A TIME. TURN SCHEDULE Q2H. SKIN INTACT. TOLERATED FAIR. CONSENT OBTAINED FOR TUNNELED CATHETER PLACEMENT FOR TOMORROW. DTR AT BEDSIDE. CALL LIGHT WITHIN REACH.
--- NOTE | 2018-07-01 19:31 | NUR ---
HAND-OFF: Report given to Shaniqua Bah RN
--- NOTE | 2018-07-01 19:45 | NUR ---
NURSE NOTES: Received report from KOFI Manning. Patient A&Ox4, Estonian speaking with family at the bedside. On nasal cannula, 2L/min, no signs distress. IV intact, patent, and infusing IV fluids. Bed in lowest position with call light in reach. Will continue with plan of care.
[2018-07-01 20:00] VITALS: BP 115/72
--- NOTE | 2018-07-01 20:42 | General Progress Note ---
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 and presumed malignant effusions --> review outside imaging and treatments patient has received --> outside labs and pathology to be reviewed --> defer to outpatient oncologist for further care, patient requires followup, has followup with [facility] --> recent surgery 05/2018, was date of initial dx # Thrombocytosis - likely related to reactive process, ovarian cancer potential hx of mets --> Continue to monitor for improvement --> plt trend: 860-->863-->917-->937 --> Trend CBC as needed --> Jak2 has been ordered --> Smear reviewed and no abnormalities noted. *Under manual differential # Anemia of chronic disease (or of iron deficiency) due to underlying chronic medical issues, multifactorial --> Anemia workup has been reviewed, --> No evidence of hemolysis is noted, peripheral smear has been reviewed. --> Hgb goal >7. Transfuse prn. --> Epogen or iron at this time is not particularly indicated --> Medications have been reviewed # Leukocytosis. Likely related to underlying infection versus reactive process. --> Peripheral has been ordered, no blasts are noted --> Medications have been reviewed --> Imaging has been reviewed --> Blood cultures and urine cultures prn --> has been started on abx, empiric treatment # Shortness of breath # Large bilateral pleural effusions --> thoracentesis eval with pleural fluid studies --> 06/18: Successful ultrasound-guided right thoracentesis, yielding 0.8 liters of fluid The timing of this note does not necessarily reflect the time of the patient was seen. Greatly appreciate consultation! Subjective Constitutional: Denies: no symptoms, chills, diaphoresis, fever, malaise, weakness, other HEENT: Denies: no symptoms, eye pain, blurred vision, tearing, double vision, ear pain, ear discharge, nose pain, nose congestion, throat pain, throat swelling, mouth pain, mouth swelling, other Cardiovascular: Denies: no symptoms, chest pain, edema, irregular heart rate, lightheadedness, palpitations, syncope, other Respiratory: Denies: no symptoms, cough, orthopnea, shortness of breath, SOB with excertion, SOB at rest, sputum, stridor, wheezing, other Gastrointestinal/Abdominal: Denies: no symptoms, abdomen distended, abdominal pain, black stools, tarry stools, blood in stool, constipated, diarrhea, difficulty swallowing, nausea, poor appetite, poor fluid intake, rectal bleeding , vomiting, other Genitourinary: Denies: no symptoms, burning, discharge, frequency, flank pain, hematuria, incontinence, pain, urgency, other Neurologic/Psychiatric: Denies: no symptoms, anxiety, depressed, emotional problems, headache, numbness, paresthesia, pre-existing deficit, seizure, tingling, tremors, weakness, other Endocrine: Denies: no symptoms, excessive sweating, flushing, intolerance to cold, intolerance to heat, increased hunger, increased thirst, increased urine, unexplained weight gain, unexplained weight loss, other Hematologic/Lymphatic: Denies: no symptoms, anemia, easy bleeding, easy bruising, other Allergies: Coded Allergies: No Known Allergies (Unverified , 06/17/18) Subjective 06/18: thoracentesis eval with pleural fluid studies today, plt remains elevated. 06/19: seen by bedside, no acute distress, no signs of pain. No pneumothorax is reported on CXR 06/22: Patient is is resting in bed with family at bed side. Patient has pain which is at a moderate level and tolerated on the Morphine. HIDA scan reveals, suspicious for acute cholecystitis. plt continue to be elevated and trending up. 06/23: seen by bedside, awake, comfortable, no acute distress, no events 06/24: HIDA reviewed >> suggestive of acute cholecystitis, no plans for GI procedures at this time, patient will need follow up imaging for her cirrhosis and ascites, continues to have abdominal pain 06/25: awake, comfortable, no acute distress. 06/26: No acute events, s/p cholecystostomy tube placement. 06/28: s/p cholecystostomy tube, CT and MRCP reviewed, no plans for ERCP given no dilated duct and poor prognosis 06/29: seen by bedside, complains of abdominal pain . 06/30: seen by bedside, awake comfortable, no acute events. plt trending down 07/01: Pt is awake and comfortable, no acute distress. Objective Last 24 Hour Vital Signs Date Time Temp Pulse Resp B/P (MAP) Pulse Ox O2 Delivery O2 Flow Rate FiO2 07/01/18 17:29 97.4 07/01/18 16:00 97.6 98 18 124/83 (97) 97 07/01/18 12:00 97.4 103 18 107/75 (86) 97 07/01/18 11:44 Nasal Cannula 2.0 28 07/01/18 11:44 98 Nasal Cannula 2.0 28 07/01/18 09:21 Nasal Cannula 3.0 07/01/18 08:00 96.5 100 18 117/73 (88) 97 07/01/18 04:00 97.4 95 20 135/83 (100) 97 07/01/18 00:00 97.2 92 20 133/83 (100) 98 06/30/18 21:00 Nasal Cannula 3.0 Intake and Output 06/30/18 07/01/18 19:00 07:00 Intake Total 320 ml 340 ml Output Total 820 ml 310 ml Balance -500 ml 30 ml Intake Oral 320 ml 340 ml Output Urine Total 800 ml 300 ml Other 20 ml 10 ml # Voids 2 # Bowel Movements 3 1 Laboratory Tests 07/01/18 04:45: White Blood Count 8.0, Red Blood Count 3.74L, Hemoglobin 11.1L, Hematocrit 33.3L , Mean Corpuscular Volume 89, Mean Corpuscular Hemoglobin 29.8, Mean Corpuscular Hemoglobin Concent 33.5, Red Cell Distribution Width 15.4H, Platelet Count 512H, Mean Platelet Volume 5.0L, Neutrophils (%) (Auto) 76.4H, Lymphocytes (%) (Auto) 14.1L, Monocytes (%) (Auto) 7.9, Eosinophils (%) (Auto) 0.8, Basophils (%) (Auto) 0.8, Sodium Level 131L, Potassium Level 4.3, Chloride Level 99, Carbon Dioxide Level 26, Anion Gap 6, Blood Urea Nitrogen 19H, Creatinine 0.4L, Estimat Glomerular Filtration Rate , Glucose Level 112H, Calcium Level 8.8, Phosphorus Level 4.0, Magnesium Level 1.9, Total Bilirubin 0.8, Direct Bilirubin 0.4H, Aspartate Amino Transf (AST/SGOT) 100H, Alanine Aminotransferase (ALT/SGPT) 103H, Alkaline Phosphatase 1323H, Total Protein 5.6L , Albumin 1.7L Height (Feet): 5 Height (Inches): 2.00 Weight (Pounds): 126 Objective Physical Exam General Appearance: no apparent distress, alert HEENT: normocephalic, atraumatic Neck: supple Respiratory/Chest: decreased breath sounds Cardiovascular/Chest: normal rate, regular rhythm Abdomen: non tender, soft Extremities: no edema Keegan Flores MD Jul 01, 2018 20:42
[2018-07-01] MEDS: Zolpidem 5mg tab ORAL PRN (21:25)
--- NOTE | 2018-07-01 23:13 | Cardiology Progress Note ---
Assessment/Plan Assessment/Plan 1. Sinus tachycardia, likely due to sepsis, low intravascular volume depletion due to low oncotic pressure, or tumor burden. 2. B/L pleural effusion, s/p thoracentesis 3. Metastatic ovarian cancer 4. FTT 5. Respiratory failure. 6. Encephalopathy 7. Moderate pulmonary HTN. 8. Sepsis, s/p cholecystostomy. Subjective Subjective No chest pain or SOB is reported. Objective Last 24 Hour Vital Signs Date Time Temp Pulse Resp B/P (MAP) Pulse Ox O2 Delivery O2 Flow Rate FiO2 07/01/18 20:00 97.9 98 18 115/72 (86) 97 07/01/18 17:29 97.4 07/01/18 16:00 97.6 98 18 124/83 (97) 97 07/01/18 12:00 97.4 103 18 107/75 (86) 97 07/01/18 11:44 Nasal Cannula 2.0 28 07/01/18 11:44 98 Nasal Cannula 2.0 28 07/01/18 09:21 Nasal Cannula 3.0 07/01/18 08:00 96.5 100 18 117/73 (88) 97 07/01/18 04:00 97.4 95 20 135/83 (100) 97 07/01/18 00:00 97.2 92 20 133/83 (100) 98 Intake and Output 06/30/18 07/01/18 19:00 07:00 Intake Total 320 ml 340 ml Output Total 820 ml 310 ml Balance -500 ml 30 ml Intake Oral 320 ml 340 ml Output Urine Total 800 ml 300 ml Other 20 ml 10 ml # Voids 2 # Bowel Movements 3 1 CXR: reviewed 2D Echo: LVEF 65%, Grade I LVDD, pleural effusion, RVSP 48 mmHg Laboratory Tests Test 07/01/18 04:45 White Blood Count 8.0 K/UL (4.8-10.8) Red Blood Count 3.74 M/UL (4.20-5.40) L Hemoglobin 11.1 G/DL (12.0-16.0) L Hematocrit 33.3 % (37.0-47.0) L Mean Corpuscular Volume 89 FL (80-99) Mean Corpuscular Hemoglobin 29.8 PG (27.0-31.0) Mean Corpuscular Hemoglobin Concent 33.5 G/DL (32.0-36.0) Red Cell Distribution Width 15.4 % (11.6-14.8) H Platelet Count 512 K/UL (150-450) H Mean Platelet Volume 5.0 FL (6.5-10.1) L Neutrophils (%) (Auto) 76.4 % (45.0-75.0) H Lymphocytes (%) (Auto) 14.1 % (20.0-45.0) L Monocytes (%) (Auto) 7.9 % (1.0-10.0) Eosinophils (%) (Auto) 0.8 % (0.0-3.0) Basophils (%) (Auto) 0.8 % (0.0-2.0) Sodium Level 131 MMOL/L (136-145) L Potassium Level 4.3 MMOL/L (3.5-5.1) Chloride Level 99 MMOL/L (98-107) Carbon Dioxide Level 26 MMOL/L (21-32) Anion Gap 6 mmol/L (5-15) Blood Urea Nitrogen 19 mg/dL (7-18) H Creatinine 0.4 MG/DL (0.55-1.30) L Estimat Glomerular Filtration Rate mL/min (>60) Glucose Level 112 MG/DL (74-106) H Calcium Level 8.8 MG/DL (8.5-10.1) Phosphorus Level 4.0 MG/DL (2.5-4.9) Magnesium Level 1.9 MG/DL (1.8-2.4) Total Bilirubin 0.8 MG/DL (0.2-1.0) Direct Bilirubin 0.4 MG/DL (0.0-0.3) H Aspartate Amino Transf (AST/SGOT) 100 U/L (15-37) H Alanine Aminotransferase (ALT/SGPT) 103 U/L (12-78) H Alkaline Phosphatase 1323 U/L (46-116) H Total Protein 5.6 G/DL (6.4-8.2) L Albumin 1.7 G/DL (3.4-5.0) L Objective HEENT: Atraumatic and normocephalic. Anicteric. Pupils are equal, round, and reactive to light and accommodation. Extraocular muscles intact. NECK: JVP less than 5 cm. No carotid bruit. Carotid upstrokes 2+ bilaterally. CARDIOVASCULAR: Normal S1, S2. Regular rate and rhythm. Tachycardic. No murmurs, gallops, or rubs. LUNGS: Diminished breath sounds in both bases. ABDOMEN: Soft, nontender, and nondistended. No hepatosplenomegaly. Positive bowel sounds. An abdominal incision site is clean. EXTREMITIES: No evidence of edema, clubbing, or cyanosis. Andrew Man MD Jul 01, 2018 23:13
[2018-07-02] VITALS (14 sets, daily range): BP systolic 116–147; BP diastolic 76–110
--- NOTE | 2018-07-02 07:30 | NUR ---
HAND-OFF: Report given to Ana Morley RN.
--- NOTE | 2018-07-02 07:31 | NUR ---
NURSE NOTES: Received report from KOFI Mcgovern. Patient a/o x4 lying on the bed. No respiratory discomfort noted. Patient keep NPO for tunneled left pleural drainage catheter, possible moderate sedation. Denies any pain at this time. IV is patent. Questions answered. Call light within reach. Will continue to monitor.
[2018-07-02 08:08] LABS: BASOPHILS % (AUTO) 1.2 % (0.0-2.0); EOSINOPHILS % (AUTO) 1.2 % (0.0-3.0); HEMOGLOBIN 11.3 G/DL (12.0-16.0); LYMPHOCYTES % (AUTO) 10.8 % (20.0-45.0); MEAN CORPUSCULAR VOLUME 90 FL (80-99); MONOCYTES % (AUTO) 7.4 % (1.0-10.0); NEUTROPHILS % (AUTO) 79.4 % (45.0-75.0); PLATELET COUNT 518 K/UL (150-450); RED BLOOD COUNT 3.79 M/UL (4.20-5.40); RED CELL DISTRIBUTION WIDTH 15.6 % (11.6-14.8); WHITE BLOOD COUNT 7.5 K/UL (4.8-10.8)
[2018-07-02 08:44] LABS: ALANINE AMINOTRANSFERASE 94 U/L (12-78); ALBUMIN 1.7 G/DL (3.4-5.0); ALBUMIN/GLOBULIN RATIO 0.4 (1.0-2.7); ALKALINE PHOSPHATASE 1252 U/L (46-116); ASPARTATE AMINO TRANSFERASE 89 U/L (15-37); BILIRUBIN,TOTAL 0.8 MG/DL (0.2-1.0); BLOOD UREA NITROGEN 19 mg/dL (7-18); CALCIUM 8.4 MG/DL (8.5-10.1); CHLORIDE 101 MMOL/L (98-107); CREATININE 0.4 MG/DL (0.55-1.30); POTASSIUM 4.2 MMOL/L (3.5-5.1); SODIUM 133 MMOL/L (136-145)
[2018-07-02] MEDS: Heparin 5000 units/ml inj SUBQ SCH ×2 (08:50→20:40)
[2018-07-02] MEDS: Bisacodyl EC 5mg tab ORAL SCH (08:50)
[2018-07-02] MEDS: Docusate 100mg cap ORAL SCH ×2 (08:50→17:48)
[2018-07-02 08:51] LABS: ANION GAP 8 mmol/L (5-15); CARBON DIOXIDE 24 MMOL/L (21-32)
[2018-07-02 09:35] LABS: INR 0.9 (0.9-1.1)
--- NOTE | 2018-07-02 10:43 | NUR ---
NURSE NOTES: Cholecystostomy tube irrigation was done by RN.
--- NOTE | 2018-07-02 10:51 | Pre-Procedure Note/Attestation ---
Pre-Procedure Note/Attestation Complete Prior to Procedure Planned Procedure: left Procedure Narrative: tunneled chronic pleural drainage catheter Indications for Procedure Pre-Operative Diagnosis: recurrent pleural effusion Attestation I attest that I discussed the nature of the procedure; its benefits; risks and complications; and alternatives (and the risks and benefits of such alternatives ), prior to the procedure, with the patient (or the patient's legal distribution sales representative). I attest that, if there was a reasonable possibility of needing a blood transfusion, the patient (or the patient's legal distribution sales representative) was given the [facility] standardized written summary, pursuant to the Marek Yousuf Blood Safety Act ([place] Health and Safety Code # 1645, as amended). I attest that I re-evaluated the patient just prior to the surgery and that there has been no change in the patient's H&P, except as documented below: Discussed by phone with daughter Jazmine on 07/01/2018 Richard Fitzgerald MD Jul 02, 2018 10:51
--- NOTE | 2018-07-02 10:57 | GI Progress Note ---
Assessment/Plan Problems: (1) Cancer, metastatic ICD Codes: C79.9 - Secondary malignant neoplasm of unspecified site SNOMED: 123873499 (2) Abdominal pain ICD Codes: R10.9 - Unspecified abdominal pain SNOMED: 67393472 (3) Cirrhosis ICD Codes: K74.60 - Unspecified cirrhosis of liver SNOMED: 27636844 (4) Cholecystitis ICD Codes: K81.9 - Cholecystitis, unspecified SNOMED: 02886220 (5) Pleural effusion ICD Codes: J90 - Pleural effusion, not elsewhere classified SNOMED: 69328557 (6) Ovarian carcinoma ICD Codes: C56.9 - Malignant neoplasm of unspecified ovary SNOMED: 052134242 Qualifiers: Qualified Codes: C56.9 - Malignant neoplasm of unspecified ovary Status: unchanged Status Narrative Discussed with Dr. Miller Assessment/Plan HIDA reviewed >> suggestive of acute cholecystitis Hx of serial paracentesis, ascites dx to be malignant at [facility] s/p thoracentesis yielding .8L CT and MRCP reviewed s/p cholecystostomy tube Pleural drainage catheter pending no plans for ERCP given no dilated duct and poor prognosis dc planning surg input appreciated fu labs abx PT evaluation supportive care The patient was seen and examined at bedside and all new and available data was reviewed in the patients chart. I agree with the above findings, impression and plan. (Patient seen earlier today. Signature stamp does not reflect patient encounter time.). - Tramaine Miller MD Subjective Gastrointestinal/Abdominal: Reports: no symptoms Subjective Abdominal pain improved Mild shortness of breath Objective Last 24 Hour Vital Signs Date Time Temp Pulse Resp B/P (MAP) Pulse Ox O2 Delivery O2 Flow Rate FiO2 07/02/18 09:00 Nasal Cannula 3.0 07/02/18 08:00 97.8 101 18 123/85 (98) 97 07/02/18 04:00 97.6 98 18 116/76 (89) 96 07/02/18 00:00 97.6 96 18 130/85 (100) 97 07/01/18 21:00 Nasal Cannula 3.0 07/01/18 20:00 97.9 98 18 115/72 (86) 97 07/01/18 17:29 97.4 07/01/18 16:00 97.6 98 18 124/83 (97) 97 07/01/18 12:00 97.4 103 18 107/75 (86) 97 07/01/18 11:44 Nasal Cannula 2.0 28 07/01/18 11:44 98 Nasal Cannula 2.0 28 Intake and Output 07/01/18 07/02/18 19:00 07:00 Intake Total 795 ml Output Total 950 ml 275 ml Balance -155 ml -275 ml Intake Oral 720 ml IV Total 75 ml Output Urine Total 950 ml 275 ml Other 0 ml 0 ml # Bowel Movements 2 Laboratory Tests Test 07/02/18 06:08 07/02/18 09:10 White Blood Count 7.5 K/UL (4.8-10.8) Red Blood Count 3.79 M/UL (4.20-5.40) L Hemoglobin 11.3 G/DL (12.0-16.0) L Hematocrit 34.0 % (37.0-47.0) L Mean Corpuscular Volume 90 FL (80-99) Mean Corpuscular Hemoglobin 29.7 PG (27.0-31.0) Mean Corpuscular Hemoglobin Concent 33.1 G/DL (32.0-36.0) Red Cell Distribution Width 15.6 % (11.6-14.8) H Platelet Count 518 K/UL (150-450) H Mean Platelet Volume 5.0 FL (6.5-10.1) L Neutrophils (%) (Auto) 79.4 % (45.0-75.0) H Lymphocytes (%) (Auto) 10.8 % (20.0-45.0) L Monocytes (%) (Auto) 7.4 % (1.0-10.0) Eosinophils (%) (Auto) 1.2 % (0.0-3.0) Basophils (%) (Auto) 1.2 % (0.0-2.0) Sodium Level 133 MMOL/L (136-145) L Potassium Level 4.2 MMOL/L (3.5-5.1) Chloride Level 101 MMOL/L (98-107) Carbon Dioxide Level 24 MMOL/L (21-32) Anion Gap 8 mmol/L (5-15) Blood Urea Nitrogen 19 mg/dL (7-18) H Creatinine 0.4 MG/DL (0.55-1.30) L Estimat Glomerular Filtration Rate mL/min (>60) Glucose Level 108 MG/DL (74-106) H Calcium Level 8.4 MG/DL (8.5-10.1) L Total Bilirubin 0.8 MG/DL (0.2-1.0) Aspartate Amino Transf (AST/SGOT) 89 U/L (15-37) H Alanine Aminotransferase (ALT/SGPT) 94 U/L (12-78) H Alkaline Phosphatase 1252 U/L (46-116) H Total Protein 5.5 G/DL (6.4-8.2) L Albumin 1.7 G/DL (3.4-5.0) L Globulin 3.8 g/dL Albumin/Globulin Ratio 0.4 (1.0-2.7) L Prothrombin Time 9.5 SEC (9.30-11.50) Prothromb Time International Ratio 0.9 (0.9-1.1) Activated Partial Thromboplast Time 27 SEC (23-33) Height (Feet): 5 Height (Inches): 2.00 Weight (Pounds): 126 General Appearance: WD/WN, no apparent distress, alert, thin Cardiovascular: normal rate Respiratory/Chest: normal breath sounds, no respiratory distress Abdominal Exam: normal bowel sounds, non tender, soft Extremities: normal range of motion, non-tender Objective Resting comfortably Ghanshyam Bryan NP Jul 02, 2018 10:56
--- NOTE | 2018-07-02 12:33 | General Progress Note ---
Assessment/Plan Problem List: (1) Ovarian carcinoma ICD Codes: C56.9 - Malignant neoplasm of unspecified ovary SNOMED: 208444607 Qualifiers: Qualified Codes: C56.9 - Malignant neoplasm of unspecified ovary (2) Respiratory distress ICD Codes: R06.03 - Acute respiratory distress SNOMED: 355375036 (3) Pleural effusion ICD Codes: J90 - Pleural effusion, not elsewhere classified SNOMED: 35741823 (4) Hypoalbuminemia ICD Codes: E88.09 - Other disorders of plasma-protein metabolism, not elsewhere classified SNOMED: 122947779 Status: progressing Assessment/Plan acute cholycystitis pleural effusion s/p rcent ovarian removal and hysterectomy is getting drain today by ir for pleural effusion Subjective ROS Limited/Unobtainable: Yes Allergies: Coded Allergies: No Known Allergies (Unverified , 06/17/18) Subjective abdominal pain sob Objective Last 24 Hour Vital Signs Date Time Temp Pulse Resp B/P (MAP) Pulse Ox O2 Delivery O2 Flow Rate FiO2 07/02/18 09:00 Nasal Cannula 3.0 07/02/18 08:00 97.8 101 18 123/85 (98) 97 07/02/18 04:00 97.6 98 18 116/76 (89) 96 07/02/18 00:00 97.6 96 18 130/85 (100) 97 07/01/18 21:00 Nasal Cannula 3.0 07/01/18 20:00 97.9 98 18 115/72 (86) 97 07/01/18 17:29 97.4 07/01/18 16:00 97.6 98 18 124/83 (97) 97 Intake and Output 07/01/18 07/02/18 19:00 07:00 Intake Total 795 ml Output Total 950 ml 275 ml Balance -155 ml -275 ml Intake Oral 720 ml IV Total 75 ml Output Urine Total 950 ml 275 ml Other 0 ml 0 ml # Bowel Movements 2 Laboratory Tests 07/02/18 06:08: White Blood Count 7.5, Red Blood Count 3.79L, Hemoglobin 11.3L, Hematocrit 34.0L , Mean Corpuscular Volume 90, Mean Corpuscular Hemoglobin 29.7, Mean Corpuscular Hemoglobin Concent 33.1, Red Cell Distribution Width 15.6H, Platelet Count 518H, Mean Platelet Volume 5.0L, Neutrophils (%) (Auto) 79.4H, Lymphocytes (%) (Auto) 10.8L, Monocytes (%) (Auto) 7.4, Eosinophils (%) (Auto) 1.2, Basophils (%) (Auto) 1.2, Sodium Level 133L, Potassium Level 4.2, Chloride Level 101, Carbon Dioxide Level 24, Anion Gap 8, Blood Urea Nitrogen 19H, Creatinine 0.4L, Estimat Glomerular Filtration Rate , Glucose Level 108H, Calcium Level 8.4L, Total Bilirubin 0.8, Aspartate Amino Transf (AST/SGOT) 89H, Alanine Aminotransferase (ALT/SGPT) 94H, Alkaline Phosphatase 1252H, Total Protein 5.5L, Albumin 1.7L, Globulin 3.8, Albumin/Globulin Ratio 0.4L 07/02/18 09:10: Prothrombin Time 9.5, Prothromb Time International Ratio 0.9, Activated Partial Thromboplast Time 27 Height (Feet): 5 Height (Inches): 2.00 Weight (Pounds): 126 Neck: supple Cardiovascular: normal rate Respiratory/Chest: lungs clear Vane Stephenson MD Jul 02, 2018 12:33
--- NOTE | 2018-07-02 13:01 | Surgery Progress Note ---
Surgery Progress Note Subjective Additional Comments no acute events. labs noted. drain for pleural effusion planned Objective Last 24 Hour Vital Signs Date Time Temp Pulse Resp B/P (MAP) Pulse Ox O2 Delivery O2 Flow Rate FiO2 07/02/18 12:00 97.8 106 18 143/95 (111) 96 07/02/18 09:00 Nasal Cannula 3.0 07/02/18 08:00 97.8 101 18 123/85 (98) 97 07/02/18 04:00 97.6 98 18 116/76 (89) 96 07/02/18 00:00 97.6 96 18 130/85 (100) 97 07/01/18 21:00 Nasal Cannula 3.0 07/01/18 20:00 97.9 98 18 115/72 (86) 97 07/01/18 17:29 97.4 07/01/18 16:00 97.6 98 18 124/83 (97) 97 I&O Intake and Output 07/01/18 07/02/18 19:00 07:00 Intake Total 795 ml Output Total 950 ml 275 ml Balance -155 ml -275 ml Intake Oral 720 ml IV Total 75 ml Output Urine Total 950 ml 275 ml Other 0 ml 0 ml # Bowel Movements 2 Dressing: other Wound: other Drains: other Cardiovascular: RSR Respiratory: decreased breath sounds Abdomen: soft, present bowel sounds, non-distended Extremities: no cyanosis, other Laboratory Tests Test 07/02/18 06:08 07/02/18 09:10 White Blood Count 7.5 K/UL (4.8-10.8) Red Blood Count 3.79 M/UL (4.20-5.40) L Hemoglobin 11.3 G/DL (12.0-16.0) L Hematocrit 34.0 % (37.0-47.0) L Mean Corpuscular Volume 90 FL (80-99) Mean Corpuscular Hemoglobin 29.7 PG (27.0-31.0) Mean Corpuscular Hemoglobin Concent 33.1 G/DL (32.0-36.0) Red Cell Distribution Width 15.6 % (11.6-14.8) H Platelet Count 518 K/UL (150-450) H Mean Platelet Volume 5.0 FL (6.5-10.1) L Neutrophils (%) (Auto) 79.4 % (45.0-75.0) H Lymphocytes (%) (Auto) 10.8 % (20.0-45.0) L Monocytes (%) (Auto) 7.4 % (1.0-10.0) Eosinophils (%) (Auto) 1.2 % (0.0-3.0) Basophils (%) (Auto) 1.2 % (0.0-2.0) Sodium Level 133 MMOL/L (136-145) L Potassium Level 4.2 MMOL/L (3.5-5.1) Chloride Level 101 MMOL/L (98-107) Carbon Dioxide Level 24 MMOL/L (21-32) Anion Gap 8 mmol/L (5-15) Blood Urea Nitrogen 19 mg/dL (7-18) H Creatinine 0.4 MG/DL (0.55-1.30) L Estimat Glomerular Filtration Rate mL/min (>60) Glucose Level 108 MG/DL (74-106) H Calcium Level 8.4 MG/DL (8.5-10.1) L Total Bilirubin 0.8 MG/DL (0.2-1.0) Aspartate Amino Transf (AST/SGOT) 89 U/L (15-37) H Alanine Aminotransferase (ALT/SGPT) 94 U/L (12-78) H Alkaline Phosphatase 1252 U/L (46-116) H Total Protein 5.5 G/DL (6.4-8.2) L Albumin 1.7 G/DL (3.4-5.0) L Globulin 3.8 g/dL Albumin/Globulin Ratio 0.4 (1.0-2.7) L Prothrombin Time 9.5 SEC (9.30-11.50) Prothromb Time International Ratio 0.9 (0.9-1.1) Activated Partial Thromboplast Time 27 SEC (23-33) Plan Problems: (1) Cholecystitis Assessment & Plan: acute cholecystitis ovarian cancer with mets complicated medical and surgical history Cholelithiasis and gallbladder wall thickening. Note that recent hepatobiliary nuclear scan is positive for acute cholecystitis. Given the nodular and irregular appearance of the gallbladder wall, possibly a gallbladder neoplasm should also be considered Unusual enhancement of the biliary ductal hernandez, raising concern for cholangitis. Correlate with clinical history and findings cholecystotomy tube placed - Successful percutaneous cholecystostomy under ultrasound and fluoroscopic guidance. Note that aspiration of the gallbladder yielded approximately 15 mL of darshan pus given above no surgery recommended. cont current care tube care okay to d/c from surgical standpoint tube needs to stay in for 6 weeks then can d/c will follow with recs as results available thank you (2) Abdominal pain Rich Kiran Jul 02, 2018 13:01
--- NOTE | 2018-07-02 13:30 | NUR ---
NURSE NOTES: Patient is off the unit for the procedure. Patient in stable condition.
[2018-07-02] MEDS ORDERED: fentaNYL 100 mcg/2 mL IV ONE (13:38)
[2018-07-02] MEDS ORDERED: Midazolam 2mg/2ml Inj ONE (13:39)
[2018-07-02] MEDS ORDERED: Lidocaine 2% 20mg/ml/Epi 0.005mg/ml 20ml vial INJ SCH (13:40)
[2018-07-02] MEDS ORDERED: Heparin1,000 units/500ml Premix(Conc:2 units/ml) INJ SCH (13:40)
[2018-07-02] MEDS ORDERED: ceFAZolin sod 1 GM in D5W 55 ML IVPB SCH (13:45)
--- NOTE | 2018-07-02 14:02 | Pulmonology Progress Note ---
Assessment/Plan Assessment/Plan Problem List: 1. Shortness of breath 2. Large bilateral pleural effusions -R thoracentesis 800 cc 06/18 -L thoracentesis 900 cc 06/26 3. ovarian cancer s/p resection with likely malignant ascites and presumed malignant effusions 4. Protein calorie malnutrition 5. Abdominal pain - acute cholecysitis Plan: -effusions have recurred. R cytology no cancer but given rate of recurrence, will have pleurx placed at least on one side -f/u cytology of L thoracentesis -monitor volumes -pain control Subjective ROS Limited/Unobtainable: Yes Interval Events: no change. Awaiting pleurx placement Allergies: Coded Allergies: No Known Allergies (Unverified , 06/17/18) Objective Last 24 Hour Vital Signs Date Time Temp Pulse Resp B/P (MAP) Pulse Ox O2 Delivery O2 Flow Rate FiO2 07/02/18 12:00 97.8 106 18 143/95 (111) 96 07/02/18 09:00 Nasal Cannula 3.0 07/02/18 08:00 97.8 101 18 123/85 (98) 97 07/02/18 04:00 97.6 98 18 116/76 (89) 96 07/02/18 00:00 97.6 96 18 130/85 (100) 97 07/01/18 21:00 Nasal Cannula 3.0 07/01/18 20:00 97.9 98 18 115/72 (86) 97 07/01/18 17:29 97.4 07/01/18 16:00 97.6 98 18 124/83 (97) 97 Intake and Output 07/01/18 07/02/18 19:00 07:00 Intake Total 795 ml Output Total 950 ml 275 ml Balance -155 ml -275 ml Intake Oral 720 ml IV Total 75 ml Output Urine Total 950 ml 275 ml Other 0 ml 0 ml # Bowel Movements 2 General Appearance: no acute distress HEENT: atraumatic, anicteric Respiratory/Chest: decreased breath sounds Cardiovascular: normal rate, regular rhythm Abdomen: normal bowel sounds, soft, non tender Extremities: no edema Neurologic/Psychiatric: responsive Laboratory Tests 07/02/18 06:08: White Blood Count 7.5, Red Blood Count 3.79L, Hemoglobin 11.3L, Hematocrit 34.0L , Mean Corpuscular Volume 90, Mean Corpuscular Hemoglobin 29.7, Mean Corpuscular Hemoglobin Concent 33.1, Red Cell Distribution Width 15.6H, Platelet Count 518H, Mean Platelet Volume 5.0L, Neutrophils (%) (Auto) 79.4H, Lymphocytes (%) (Auto) 10.8L, Monocytes (%) (Auto) 7.4, Eosinophils (%) (Auto) 1.2, Basophils (%) (Auto) 1.2, Sodium Level 133L, Potassium Level 4.2, Chloride Level 101, Carbon Dioxide Level 24, Anion Gap 8, Blood Urea Nitrogen 19H, Creatinine 0.4L, Estimat Glomerular Filtration Rate , Glucose Level 108H, Calcium Level 8.4L, Total Bilirubin 0.8, Aspartate Amino Transf (AST/SGOT) 89H, Alanine Aminotransferase (ALT/SGPT) 94H, Alkaline Phosphatase 1252H, Total Protein 5.5L, Albumin 1.7L, Globulin 3.8, Albumin/Globulin Ratio 0.4L 07/02/18 09:10: Prothrombin Time 9.5, Prothromb Time International Ratio 0.9, Activated Partial Thromboplast Time 27 Current Medications Medications (Trade) Dose Ordered Sig/Susana Route PRN Reason Start Time Stop Time Status Last Admin Dose Admin Acetaminophen (Tylenol) 500 mg Q4H PRN ORAL Mild Pain/Temp > 100.5 06/23/18 11:30 07/17/18 11:29 06/23/18 16:06 Bisacodyl (Dulcolax) 10 mg DAILY ORAL 06/24/18 09:00 07/20/18 08:59 07/01/18 08:44 Cefazolin Sodium 1 gm/Dextrose 55 ml @ 110 mls/hr ONCE IVPB 07/02/18 13:45 07/02/18 23:59 Docusate Sodium (Colace) 100 mg TWICE A DAY ORAL 06/23/18 18:00 07/19/18 18:59 07/01/18 17:51 Furosemide (Lasix) 20 mg DAILY IV 06/26/18 09:00 07/18/18 08:59 07/02/18 08:43 Heparin Sodium (Porcine) (Heparin 5000 units/ml) 5,000 units EVERY 12 HOURS SUBQ 06/23/18 21:00 07/21/18 08:59 07/01/18 21:25 Heparin Sodium/ Dextrose (Heparin 1000 units/500ml Premix) 1,000 unit ONCE INJ 07/02/18 13:40 07/02/18 23:59 Lidocaine/ Epinephrine (Xylocaine 2%/ Epi MPF) 40 ml ONCE INJ 07/02/18 13:40 07/02/18 23:59 Magnesium Hydroxide (Mom) 30 ml Q4H PRN ORAL Constipation 06/23/18 14:30 07/19/18 18:29 Morphine Sulfate (Morphine Sulfate) 2 mg Q4H PRN IVP moderate pain 06/29/18 08:00 07/06/18 07:59 07/01/18 16:24 Morphine Sulfate (Morphine Sulfate) 4 mg Q4H PRN IVP severe pain 06/29/18 08:00 07/06/18 07:59 Pantoprazole (Protonix) 40 mg DAILY ORAL 06/24/18 09:00 07/18/18 08:59 07/02/18 08:43 Potassium Chloride (K-Dur) 40 meq TWICE A DAY ORAL 06/23/18 18:00 07/18/18 17:59 07/02/18 08:43 Zolpidem Tartrate (Ambien) 5 mg HSPRN PRN ORAL Insomnia 06/28/18 20:45 07/05/18 20:44 07/01/18 21:25 Phillip Patel MD Jul 02, 2018 14:02
--- NOTE | 2018-07-02 14:18 | Moderate Sedation - Procedural ---
Moderate Sedation HPI Home Medication Reported Medications Morphine HCl (Morphine Sulfate ER) 15 Mg Tablet.er, 15 MG ORAL BID, TAB 06/21/18 Hydrocodone Bit/Acetaminophen 5-325* (NORCO 5-325*) 1 Each Tablet, ORAL Q4H PRN for For Pain, TAB 0 Refills 06/17/18 Patient History Allergies: Coded Allergies: No Known Allergies (Unverified , 06/17/18) Pre-Procedural Mod Sedation Date: Jul 02, 2018 Pre-Assessment Time: 14:17 Pre-Sedation Assessment: Elective, Eval. Immed. Prior to Sed Airway Assessment (Malampati): III Evaluation Plan for Moderate Sedation: Fentanyl ASA Score: III Informed Consent The nature of the procedure/sedation; its benefits; risks and complications; and alternatives (and the risks and benefits of such alternatives) were discussed with the patient (or their legal sales representative advertising), prior to the procedure. All questions were answered to the patient's (or their legal sales representative advertising's) satisfaction and the patient (or their legal sales representative advertising) gave informed consent to the procedure. I attest that I re-evaluated the patient just prior to the surgery and that there has been no change in the patient's H&P, except as documented below: Post Procedure Assessment Post Procedure TIme: 15:00 Communication: No Apparent Limitation Mental Status: Awake Respiration: Unlabored Skin Condition: WNL Adomen: WNL Nausea: NO Vomiting: NO Richard Fitzgerald MD Jul 02, 2018 14:18
--- NOTE | 2018-07-02 15:13 | Brief Operative Note ---
Immediate Post Operative Note Operative Note Pre-op Diagnosis: recurrent pleural effusion Procedure: Tunneled pleural drainage catheter L Post-op Diagnosis: same as pre-op Surgeon: Nayla FITZGERALD Anesthesia: moderate sedation Specimen: none Complications: none Condition: stable Fluids: none Implant(s) used?: Yes - ASEPT tunneled pleural catheter Richard Fitzgerald MD Jul 02, 2018 15:13
--- NOTE | 2018-07-02 15:15 | NUR ---
CASE MANAGEMENT:REVIEW 07/02/18 SI: RESP DISTRESS. RECURRENT PLEURAL EFF(S/P THORACENTESIS) HYPONATREMIA. HYPOALBUMINEMIA 97.6 98 18 124/83 97% ON 2L/NC NA-131 AST/ALT+100/103 ALB-1.7 IS: IV ANCEF X1 IV LASIX QD PROTONIX PO QD HEPARIN SQ Q12 : MED/SURG STATUS 3 EAST DCP: PATIENT IS FROM HOME PLAN: LT TUNNELED PLEURAL DRAINAGE CATHETER PLACED TODAY
[2018-07-02] MEDS ORDERED: fentaNYL 100 mcg/2 mL IV SCH (15:25)
[2018-07-02] MEDS ORDERED: DiphenhydrAMINE 50mg/ml Inj IVP SCH (15:25)
--- NOTE | 2018-07-02 15:30 | NUR ---
NURSE NOTES: Patient came back to the unit after procedure done.
--- NOTE | 2018-07-02 16:07 | General Progress Note ---
Assessment/Plan Assessment/Plan (1) Intractable pain (2) Ovarian cancer Patient to be continued on Morphine. Dr. Breaux and he concurred. Subjective Date patient seen: Jul 02, 2018 Time patient seen: 04:00 - pm Allergies: Coded Allergies: No Known Allergies (Unverified , 06/17/18) Subjective Constitutional: Reports: weakness HEENT: Reports: no symptoms Gastrointestinal/Abdominal: Reports: abdominal pain Genitourinary: Reports: no symptoms Neurologic/Psychiatric: Reports: weakness Endocrine: Reports: no symptoms Hematologic/Lymphatic: Reports: no symptoms Subjective Patient is in bed found to have persistent pleural effusions and due to this a left sided chest drainage catheter was placed. She is c/o pain and it has been tolerated on the Morphine. Objective Last 24 Hour Vital Signs Date Time Temp Pulse Resp B/P (MAP) Pulse Ox O2 Delivery O2 Flow Rate FiO2 07/02/18 14:55 119 18 118/88 (98) 100 07/02/18 14:50 124 18 120/90 (100) 95 07/02/18 14:45 121 18 128/85 (99) 97 07/02/18 14:40 132 18 147/110 (122) 93 07/02/18 14:35 122 18 118/83 (95) 93 07/02/18 14:30 118 18 131/80 (97) 93 07/02/18 14:25 119 18 131/93 (106) 95 07/02/18 14:20 110 18 3.0 07/02/18 12:00 97.8 106 18 143/95 (111) 96 07/02/18 09:00 Nasal Cannula 3.0 07/02/18 08:00 97.8 101 18 123/85 (98) 97 07/02/18 04:00 97.6 98 18 116/76 (89) 96 07/02/18 00:00 97.6 96 18 130/85 (100) 97 07/01/18 21:00 Nasal Cannula 3.0 07/01/18 20:00 97.9 98 18 115/72 (86) 97 07/01/18 17:29 97.4 Intake and Output 07/01/18 07/02/18 19:00 07:00 Intake Total 795 ml Output Total 950 ml 275 ml Balance -155 ml -275 ml Intake Oral 720 ml IV Total 75 ml Output Urine Total 950 ml 275 ml Other 0 ml 0 ml # Bowel Movements 2 Laboratory Tests 07/02/18 06:08: White Blood Count 7.5, Red Blood Count 3.79L, Hemoglobin 11.3L, Hematocrit 34.0L , Mean Corpuscular Volume 90, Mean Corpuscular Hemoglobin 29.7, Mean Corpuscular Hemoglobin Concent 33.1, Red Cell Distribution Width 15.6H, Platelet Count 518H, Mean Platelet Volume 5.0L, Neutrophils (%) (Auto) 79.4H, Lymphocytes (%) (Auto) 10.8L, Monocytes (%) (Auto) 7.4, Eosinophils (%) (Auto) 1.2, Basophils (%) (Auto) 1.2, Sodium Level 133L, Potassium Level 4.2, Chloride Level 101, Carbon Dioxide Level 24, Anion Gap 8, Blood Urea Nitrogen 19H, Creatinine 0.4L, Estimat Glomerular Filtration Rate , Glucose Level 108H, Calcium Level 8.4L, Total Bilirubin 0.8, Aspartate Amino Transf (AST/SGOT) 89H, Alanine Aminotransferase (ALT/SGPT) 94H, Alkaline Phosphatase 1252H, Total Protein 5.5L, Albumin 1.7L, Globulin 3.8, Albumin/Globulin Ratio 0.4L 07/02/18 09:10: Prothrombin Time 9.5, Prothromb Time International Ratio 0.9, Activated Partial Thromboplast Time 27 Height (Feet): 5 Height (Inches): 2.00 Weight (Pounds): 126 Objective General Appearance: no apparent distress, alert Cardiovascular: normal rate, regular rhythm Respiratory/Chest: decreased breath sounds, drainage tube noted Abdomen: tender Extremities: non-tender Neurologic: alert, responsive Skin: normal pigmentation Tenzin Foster Jul 02, 2018 16:07
[2018-07-02] MEDS: Morphine Sulfate 4mg/ml Inj (IV USE ONLY) IVP PRN (16:15)
--- NOTE | 2018-07-02 17:07 | NUR ---
NURSE NOTES: Patient wants to be transferred to [facility] ([place] instead of SNF. Left the message to Kelsey, case finishing machine adjuster. Afshin, son-in-law, Jazmine, daughter.
--- NOTE | 2018-07-02 17:30 | Diagnostic Imaging Report ---
Indication: Recurrent pleural effusions requiring repeated thoracenteses; tunneled chronic pleural drainage catheter requested per patient's medical technologist chief Technique: Informed consent obtained prior to procedure from patient's daughter and the patient. Prior imaging studies reviewed. Procedural timeout performed. Total sterile technique, including sterile gloves and hand hygiene, hat, mask, sterile gown, large sterile drape, and preparation with 2% chlorhexidine utilized. Local anesthesia with 1% lidocaine. Under real-time ultrasound guidance, puncture pleural space on the left using 21-gauge micropuncture needle. Passage 0.018 guidewire, over which was passed a 5 Macedonian micropuncture introducer. This was left in situ. Intended subcutaneous tunnel was then anesthetized with 1% lidocaine. A tunneling device was then used to pull the ASEPT catheter through the tunnel, cuff centered in the center of the tunnel. 0.035 guidewire then inserted through the micropuncture introducer, and then the dilator was passed over the introducer under fluoroscopic guidance, followed by introduction of a peel-away sheath. The guidewire and dilator removed, and the catheter was passed into the pleural space. Peel-away sheath. Peel-away sheath was removed. 1 L of clear yellow fluid was then removed via the catheter. Follow-up digital spot fluoroscopic images and radiograph documents complete evacuation of the pleural fluid and good position of catheter in the pleural space. The patient tolerated the procedure well, without immediate complication. Patient received fentanyl for intraprocedural analgesia Total fluoroscopy time 86.9 seconds. Total dose area product 14.3 mGy Number of images: 3 Comparison: Findings: Impression:
--- NOTE | 2018-07-02 17:43 | Diagnostic Imaging Report ---
Indication: Post pleural drainage catheter placement for pleural effusion, chest pain, shortness of breath Technique: One view of the chest Comparison: 06/29/2018 Findings: Interim placement of a tunneled pleural drainage catheter in the left hemithorax. There is resultant complete evacuation of previously demonstrated large left pleural effusion. No pneumothorax demonstrated. Right-sided pleural fluid persists. This is unchanged. A cholecystostomy catheter is seen in the right upper quadrant Impression: Satisfactory placement of tunneled pleural drainage catheter, as described. Evidence of complete evacuation of previously demonstrated large left pleural effusion. No radiographically evident complication Stable large right pleural effusion Other findings as noted
[2018-07-02] MEDS ORDERED: NaCl 3% 500ml 250 ML IV ONE (18:00)
--- NOTE | 2018-07-02 19:20 | NUR ---
HAND-OFF: Report given to Yuliya Nolan RN. Patient in stable condition.
--- NOTE | 2018-07-02 19:30 | NUR ---
NURSE NOTES: Received patient in no apparent distress. NC 3L is on, no s/s of respiratory distress noted. IV site patent and intact. Left pleural drainage cath noted, dressing dry and intact. Cholecystotomy cath noted on right abdomen, dressing dry and intact. [place] cath in place, draining well by gravity, yellow urine noted. English speaking. Bed in lowest position. Call light within reach. Will continue to monitor.
--- NOTE | 2018-07-02 23:46 | Cardiology Progress Note ---
Assessment/Plan Assessment/Plan 1. Sinus tachycardia, likely due to sepsis, low intravascular volume depletion due to low oncotic pressure, or tumor burden. 2. B/L pleural effusion, s/p thoracentesis 3. Metastatic ovarian cancer 4. FTT 5. Respiratory failure. 6. Encephalopathy 7. Moderate pulmonary HTN. 8. Sepsis, s/p cholecystostomy. Subjective Subjective No chest pain or SOB. Objective Last 24 Hour Vital Signs Date Time Temp Pulse Resp B/P (MAP) Pulse Ox O2 Delivery O2 Flow Rate FiO2 07/02/18 20:17 Nasal Cannula 3.0 07/02/18 20:00 97.7 112 18 118/82 (94) 97 07/02/18 16:00 97.8 106 18 130/95 (107) 98 07/02/18 14:55 119 18 118/88 (98) 100 07/02/18 14:50 124 18 120/90 (100) 95 07/02/18 14:45 121 18 128/85 (99) 97 07/02/18 14:40 132 18 147/110 (122) 93 07/02/18 14:35 122 18 118/83 (95) 93 07/02/18 14:30 118 18 131/80 (97) 93 07/02/18 14:25 119 18 131/93 (106) 95 07/02/18 14:20 110 18 3.0 07/02/18 12:00 97.8 106 18 143/95 (111) 96 07/02/18 09:00 Nasal Cannula 3.0 07/02/18 08:00 97.8 101 18 123/85 (98) 97 07/02/18 04:00 97.6 98 18 116/76 (89) 96 07/02/18 00:00 97.6 96 18 130/85 (100) 97 Intake and Output 07/01/18 07/02/18 19:00 07:00 Intake Total 795 ml Output Total 950 ml 275 ml Balance -155 ml -275 ml Intake Oral 720 ml IV Total 75 ml Output Urine Total 950 ml 275 ml Other 0 ml 0 ml # Bowel Movements 2 2D Echo: LVEF 65%, Grade I LVDD, pleural effusion, RVSP 48 mmHg Laboratory Tests Test 07/02/18 06:08 07/02/18 09:10 White Blood Count 7.5 K/UL (4.8-10.8) Red Blood Count 3.79 M/UL (4.20-5.40) L Hemoglobin 11.3 G/DL (12.0-16.0) L Hematocrit 34.0 % (37.0-47.0) L Mean Corpuscular Volume 90 FL (80-99) Mean Corpuscular Hemoglobin 29.7 PG (27.0-31.0) Mean Corpuscular Hemoglobin Concent 33.1 G/DL (32.0-36.0) Red Cell Distribution Width 15.6 % (11.6-14.8) H Platelet Count 518 K/UL (150-450) H Mean Platelet Volume 5.0 FL (6.5-10.1) L Neutrophils (%) (Auto) 79.4 % (45.0-75.0) H Lymphocytes (%) (Auto) 10.8 % (20.0-45.0) L Monocytes (%) (Auto) 7.4 % (1.0-10.0) Eosinophils (%) (Auto) 1.2 % (0.0-3.0) Basophils (%) (Auto) 1.2 % (0.0-2.0) Sodium Level 133 MMOL/L (136-145) L Potassium Level 4.2 MMOL/L (3.5-5.1) Chloride Level 101 MMOL/L (98-107) Carbon Dioxide Level 24 MMOL/L (21-32) Anion Gap 8 mmol/L (5-15) Blood Urea Nitrogen 19 mg/dL (7-18) H Creatinine 0.4 MG/DL (0.55-1.30) L Estimat Glomerular Filtration Rate mL/min (>60) Glucose Level 108 MG/DL (74-106) H Calcium Level 8.4 MG/DL (8.5-10.1) L Total Bilirubin 0.8 MG/DL (0.2-1.0) Aspartate Amino Transf (AST/SGOT) 89 U/L (15-37) H Alanine Aminotransferase (ALT/SGPT) 94 U/L (12-78) H Alkaline Phosphatase 1252 U/L (46-116) H Total Protein 5.5 G/DL (6.4-8.2) L Albumin 1.7 G/DL (3.4-5.0) L Globulin 3.8 g/dL Albumin/Globulin Ratio 0.4 (1.0-2.7) L Prothrombin Time 9.5 SEC (9.30-11.50) Prothromb Time International Ratio 0.9 (0.9-1.1) Activated Partial Thromboplast Time 27 SEC (23-33) Objective HEENT: Atraumatic and normocephalic. Anicteric. Pupils are equal, round, and reactive to light and accommodation. Extraocular muscles intact. NECK: JVP less than 5 cm. No carotid bruit. Carotid upstrokes 2+ bilaterally. CARDIOVASCULAR: Normal S1, S2. Regular rate and rhythm. Tachycardic. No murmurs, gallops, or rubs. LUNGS: Diminished breath sounds in both bases. ABDOMEN: Soft, nontender, and nondistended. No hepatosplenomegaly. Positive bowel sounds. An abdominal incision site is clean. EXTREMITIES: No evidence of edema, clubbing, or cyanosis. Andrew Man MD Jul 02, 2018 23:46
[2018-07-03] VITALS: BP 110/74
[2018-07-03 04:00] VITALS: BP 123/84
[2018-07-03] MEDS: Morphine Sulfate 4mg/ml Inj (IV USE ONLY) IVP PRN ×2 (04:21→20:00)
[2018-07-03 06:33] LABS: EOSINOPHILS % (AUTO) 0.5 % (0.0-3.0); HEMATOCRIT 33.6 % (37.0-47.0); HEMOGLOBIN 11.1 G/DL (12.0-16.0); LYMPHOCYTES % (AUTO) 11.6 % (20.0-45.0); MEAN CORPUSCULAR VOLUME 91 FL (80-99); MONOCYTES % (AUTO) 8.8 % (1.0-10.0); NEUTROPHILS % (AUTO) 78.2 % (45.0-75.0); PLATELET COUNT 519 K/UL (150-450); RED CELL DISTRIBUTION WIDTH 16.2 % (11.6-14.8); WHITE BLOOD COUNT 7.1 K/UL (4.8-10.8)
--- NOTE | 2018-07-03 06:50 | NUR ---
NURSE NOTES: Flush cholecystomy tube with 100 NS but it didn't draining well. Call and left message to Dr. Kiran.
[2018-07-03 07:14] LABS: ANION GAP 6 mmol/L (5-15); BLOOD UREA NITROGEN 21 mg/dL (7-18); CALCIUM 8.9 MG/DL (8.5-10.1); CARBON DIOXIDE 27 MMOL/L (21-32); CHLORIDE 105 MMOL/L (98-107); CREATININE 0.4 MG/DL (0.55-1.30); POTASSIUM 4.3 MMOL/L (3.5-5.1); SODIUM 138 MMOL/L (136-145)
--- NOTE | 2018-07-03 07:16 | NUR ---
HAND-OFF: Report given to Crystal KIRBY.
[2018-07-03 07:35] LABS: ALANINE AMINOTRANSFERASE 101 U/L (12-78); ALBUMIN 1.8 G/DL (3.4-5.0); ALKALINE PHOSPHATASE 1370 U/L (46-116); ASPARTATE AMINO TRANSFERASE 114 U/L (15-37); BILIRUBIN,DIRECT 0.4 MG/DL (0.0-0.3); BILIRUBIN,TOTAL 0.9 MG/DL (0.2-1.0); PHOSPHORUS 3.6 MG/DL (2.5-4.9)
[2018-07-03 08:00] VITALS: BP 135/92
--- NOTE | 2018-07-03 08:00 | NUR ---
NURSE NOTES: Received report from Cecy KIRBY. During rounds patient is awake alert and oriented, no acute distress. On 2L NC. Uracil cholecystostomy to gravity drainage, dressing c/d/i. Pleural catheter in place, dressing c/d/i. Per report from nightshift nurse, cholecystostomy tube would not flush, Dr. Kiran was contacted and is aware, no further orders were given. IV intact and asymptomatic. Patient reporting no pain except when moving pleural catheter. [place] in place to gravity drainage. Side rails upx3, bed low and locked, call light in reach. Will continue to monitor.
--- NOTE | 2018-07-03 09:04 | General Progress Note ---
Assessment/Plan Assessment/Plan (1) Intractable pain (2) Ovarian cancer Patient to be continued on Morphine. Dr. Breaux and he concurred. Subjective Date patient seen: Jul 03, 2018 Time patient seen: 07:45 - am Allergies: Coded Allergies: No Known Allergies (Unverified , 06/17/18) Subjective Constitutional: Reports: weakness HEENT: Reports: no symptoms Gastrointestinal/Abdominal: Reports: abdominal pain Genitourinary: Reports: no symptoms Neurologic/Psychiatric: Reports: weakness Endocrine: Reports: no symptoms Hematologic/Lymphatic: Reports: no symptoms Subjective Patient has been in bed with family at bedside. She continues to c/o pain which has been tolerated on the Morphine as needed. No new complaints at this time. Objective Last 24 Hour Vital Signs Date Time Temp Pulse Resp B/P (MAP) Pulse Ox O2 Delivery O2 Flow Rate FiO2 07/03/18 08:00 98.2 109 19 135/92 (106) 93 07/03/18 04:00 98.6 109 18 123/84 (97) 96 07/03/18 00:00 97.2 117 18 110/74 (86) 97 07/02/18 20:17 Nasal Cannula 3.0 07/02/18 20:00 97.7 112 18 118/82 (94) 97 07/02/18 16:00 97.8 106 18 130/95 (107) 98 07/02/18 14:55 119 18 118/88 (98) 100 07/02/18 14:50 124 18 120/90 (100) 95 07/02/18 14:45 121 18 128/85 (99) 97 07/02/18 14:40 132 18 147/110 (122) 93 07/02/18 14:35 122 18 118/83 (95) 93 07/02/18 14:30 118 18 131/80 (97) 93 07/02/18 14:25 119 18 131/93 (106) 95 07/02/18 14:20 110 18 3.0 07/02/18 12:00 97.8 106 18 143/95 (111) 96 Intake and Output 07/02/18 07/03/18 18:59 06:59 Intake Total 257 ml Output Total 1013 ml 500 ml Balance -756 ml -500 ml Intake Oral 257 ml Output Urine Total 1000 ml 500 ml Other 13 ml # Bowel Movements 2 Laboratory Tests 07/02/18 09:10: Prothrombin Time 9.5, Prothromb Time International Ratio 0.9, Activated Partial Thromboplast Time 27 07/03/18 04:50: White Blood Count 7.1, Red Blood Count 3.70L, Hemoglobin 11.1L, Hematocrit 33.6L , Mean Corpuscular Volume 91, Mean Corpuscular Hemoglobin 30.1, Mean Corpuscular Hemoglobin Concent 33.2, Red Cell Distribution Width 16.2H, Platelet Count 519H, Mean Platelet Volume 5.0L, Neutrophils (%) (Auto) 78.2H, Lymphocytes (%) (Auto) 11.6L, Monocytes (%) (Auto) 8.8, Eosinophils (%) (Auto) 0.5, Basophils (%) (Auto) 1.0, Sodium Level 138, Potassium Level 4.3, Chloride Level 105, Carbon Dioxide Level 27, Anion Gap 6, Blood Urea Nitrogen 21H, Creatinine 0.4L, Estimat Glomerular Filtration Rate , Glucose Level 132H, Calcium Level 8.9, Phosphorus Level 3.6, Magnesium Level 2.0, Total Bilirubin 0.9, Direct Bilirubin 0.4H, Gamma Glutamyl Transpeptidase 2059H, Aspartate Amino Transf (AST/SGOT) 114H, Alanine Aminotransferase (ALT/SGPT) 101H, Alkaline Phosphatase 1370H, Total Protein 5.6L, Albumin 1.8L Height (Feet): 5 Height (Inches): 2.00 Weight (Pounds): 126 Objective General Appearance: no apparent distress, alert Cardiovascular: normal rate, regular rhythm Respiratory/Chest: decreased breath sounds, drainage tube noted Abdomen: tender Extremities: non-tender Neurologic: alert, responsive Skin: normal pigmentation Tenzin Foster Jul 03, 2018 09:04
[2018-07-03] MEDS: Bisacodyl EC 5mg tab ORAL SCH (09:21)
[2018-07-03] MEDS: Docusate 100mg cap ORAL SCH ×2 (09:22→18:09)
[2018-07-03] MEDS: Heparin 5000 units/ml inj SUBQ SCH ×2 (09:24→20:38)
--- NOTE | 2018-07-03 10:38 | Pulmonology Progress Note ---
Assessment/Plan Assessment/Plan Problem List: 1. Shortness of breath 2. Large bilateral pleural effusions -R thoracentesis 800 cc 06/18 -L thoracentesis 900 cc 06/26 -L pleurx 07/02 3. ovarian cancer s/p resection with likely malignant ascites and presumed malignant effusions 4. Protein calorie malnutrition 5. Abdominal pain - acute cholecysitis Plan: -L pleurx placed, drain prn but minimum once weekly -f/u cytology -monitor volumes -pain control -d/c planning Subjective ROS Limited/Unobtainable: Yes Interval Events: L pleurx placed Allergies: Coded Allergies: No Known Allergies (Unverified , 06/17/18) Objective Last 24 Hour Vital Signs Date Time Temp Pulse Resp B/P (MAP) Pulse Ox O2 Delivery O2 Flow Rate FiO2 07/03/18 08:00 98.2 109 19 135/92 (106) 93 07/03/18 04:00 98.6 109 18 123/84 (97) 96 07/03/18 00:00 97.2 117 18 110/74 (86) 97 07/02/18 20:17 Nasal Cannula 3.0 07/02/18 20:00 97.7 112 18 118/82 (94) 97 07/02/18 16:00 97.8 106 18 130/95 (107) 98 07/02/18 14:55 119 18 118/88 (98) 100 07/02/18 14:50 124 18 120/90 (100) 95 07/02/18 14:45 121 18 128/85 (99) 97 07/02/18 14:40 132 18 147/110 (122) 93 07/02/18 14:35 122 18 118/83 (95) 93 07/02/18 14:30 118 18 131/80 (97) 93 07/02/18 14:25 119 18 131/93 (106) 95 07/02/18 14:20 110 18 3.0 07/02/18 12:00 97.8 106 18 143/95 (111) 96 Intake and Output 07/02/18 07/03/18 19:00 07:00 Intake Total 257 ml Output Total 1013 ml 500 ml Balance -756 ml -500 ml Intake Oral 257 ml Output Urine Total 1000 ml 500 ml Other 13 ml # Bowel Movements 2 General Appearance: no acute distress HEENT: normocephalic Respiratory/Chest: decreased breath sounds Cardiovascular: regular rhythm Abdomen: normal bowel sounds, soft, non tender Neurologic/Psychiatric: responsive Laboratory Tests 07/03/18 04:50: White Blood Count 7.1, Red Blood Count 3.70L, Hemoglobin 11.1L, Hematocrit 33.6L , Mean Corpuscular Volume 91, Mean Corpuscular Hemoglobin 30.1, Mean Corpuscular Hemoglobin Concent 33.2, Red Cell Distribution Width 16.2H, Platelet Count 519H, Mean Platelet Volume 5.0L, Neutrophils (%) (Auto) 78.2H, Lymphocytes (%) (Auto) 11.6L, Monocytes (%) (Auto) 8.8, Eosinophils (%) (Auto) 0.5, Basophils (%) (Auto) 1.0, Sodium Level 138, Potassium Level 4.3, Chloride Level 105, Carbon Dioxide Level 27, Anion Gap 6, Blood Urea Nitrogen 21H, Creatinine 0.4L, Estimat Glomerular Filtration Rate , Glucose Level 132H, Calcium Level 8.9, Phosphorus Level 3.6, Magnesium Level 2.0, Total Bilirubin 0.9, Direct Bilirubin 0.4H, Gamma Glutamyl Transpeptidase 2059H, Aspartate Amino Transf (AST/SGOT) 114H, Alanine Aminotransferase (ALT/SGPT) 101H, Alkaline Phosphatase 1370H, Total Protein 5.6L, Albumin 1.8L Current Medications Medications (Trade) Dose Ordered Sig/Susana Route PRN Reason Start Time Stop Time Status Last Admin Dose Admin Acetaminophen (Tylenol) 500 mg Q4H PRN ORAL Mild Pain/Temp > 100.5 06/23/18 11:30 07/17/18 11:29 06/23/18 16:06 Bisacodyl (Dulcolax) 10 mg DAILY ORAL 06/24/18 09:00 07/20/18 08:59 07/03/18 09:21 Docusate Sodium (Colace) 100 mg TWICE A DAY ORAL 06/23/18 18:00 07/19/18 18:59 07/03/18 09:22 Furosemide (Lasix) 20 mg DAILY IV 06/26/18 09:00 07/18/18 08:59 07/03/18 09:23 Heparin Sodium (Porcine) (Heparin 5000 units/ml) 5,000 units EVERY 12 HOURS SUBQ 06/23/18 21:00 07/21/18 08:59 07/03/18 09:24 Magnesium Hydroxide (Mom) 30 ml Q4H PRN ORAL Constipation 06/23/18 14:30 07/19/18 18:29 Morphine Sulfate (Morphine Sulfate) 2 mg Q4H PRN IVP moderate pain 06/29/18 08:00 07/06/18 07:59 07/01/18 16:24 Morphine Sulfate (Morphine Sulfate) 4 mg Q4H PRN IVP severe pain 06/29/18 08:00 07/06/18 07:59 07/03/18 04:21 Pantoprazole (Protonix) 40 mg DAILY ORAL 06/24/18 09:00 07/18/18 08:59 07/03/18 09:21 Potassium Chloride (K-Dur) 40 meq TWICE A DAY ORAL 06/23/18 18:00 07/18/18 17:59 07/03/18 09:22 Zolpidem Tartrate (Ambien) 5 mg HSPRN PRN ORAL Insomnia 06/28/18 20:45 07/05/18 20:44 07/01/18 21:25 Phillip Patel MD Jul 03, 2018 10:38
--- NOTE | 2018-07-03 10:42 | GI Progress Note ---
Assessment/Plan Problems: (1) Cancer, metastatic ICD Codes: C79.9 - Secondary malignant neoplasm of unspecified site SNOMED: 810014924 (2) Abdominal pain ICD Codes: R10.9 - Unspecified abdominal pain SNOMED: 44582655 (3) Cirrhosis ICD Codes: K74.60 - Unspecified cirrhosis of liver SNOMED: 49978588 (4) Cholecystitis ICD Codes: K81.9 - Cholecystitis, unspecified SNOMED: 39402850 (5) Pleural effusion ICD Codes: J90 - Pleural effusion, not elsewhere classified SNOMED: 42587917 (6) Ovarian carcinoma ICD Codes: C56.9 - Malignant neoplasm of unspecified ovary SNOMED: 414464117 Qualifiers: Qualified Codes: C56.9 - Malignant neoplasm of unspecified ovary Status: stable Status Narrative Discussed with Dr. Miller Assessment/Plan HIDA reviewed >> suggestive of acute cholecystitis Hx of serial paracentesis, ascites dx to be malignant at [place] s/p thoracentesis yielding .8L CT and MRCP reviewed s/p cholecystostomy tube Pleural drainage catheter pending no plans for ERCP given no dilated duct and poor prognosis dc planning surg input appreciated fu labs abx PT evaluation supportive care The patient was seen and examined at bedside and all new and available data was reviewed in the patients chart. I agree with the above findings, impression and plan. (Patient seen earlier today. Signature stamp does not reflect patient encounter time.). - Tramaine Miller MD Subjective Gastrointestinal/Abdominal: Reports: no symptoms Subjective overall doing well Objective Last 24 Hour Vital Signs Date Time Temp Pulse Resp B/P (MAP) Pulse Ox O2 Delivery O2 Flow Rate FiO2 07/03/18 09:00 Nasal Cannula 3.0 07/03/18 08:00 98.2 109 19 135/92 (106) 93 07/03/18 04:00 98.6 109 18 123/84 (97) 96 07/03/18 00:00 97.2 117 18 110/74 (86) 97 07/02/18 20:17 Nasal Cannula 3.0 07/02/18 20:00 97.7 112 18 118/82 (94) 97 07/02/18 16:00 97.8 106 18 130/95 (107) 98 07/02/18 14:55 119 18 118/88 (98) 100 07/02/18 14:50 124 18 120/90 (100) 95 07/02/18 14:45 121 18 128/85 (99) 97 07/02/18 14:40 132 18 147/110 (122) 93 07/02/18 14:35 122 18 118/83 (95) 93 07/02/18 14:30 118 18 131/80 (97) 93 07/02/18 14:25 119 18 131/93 (106) 95 07/02/18 14:20 110 18 3.0 07/02/18 12:00 97.8 106 18 143/95 (111) 96 Intake and Output 07/02/18 07/03/18 19:00 07:00 Intake Total 257 ml Output Total 1013 ml 500 ml Balance -756 ml -500 ml Intake Oral 257 ml Output Urine Total 1000 ml 500 ml Other 13 ml # Bowel Movements 2 Laboratory Tests Test 07/03/18 04:50 White Blood Count 7.1 K/UL (4.8-10.8) Red Blood Count 3.70 M/UL (4.20-5.40) L Hemoglobin 11.1 G/DL (12.0-16.0) L Hematocrit 33.6 % (37.0-47.0) L Mean Corpuscular Volume 91 FL (80-99) Mean Corpuscular Hemoglobin 30.1 PG (27.0-31.0) Mean Corpuscular Hemoglobin Concent 33.2 G/DL (32.0-36.0) Red Cell Distribution Width 16.2 % (11.6-14.8) H Platelet Count 519 K/UL (150-450) H Mean Platelet Volume 5.0 FL (6.5-10.1) L Neutrophils (%) (Auto) 78.2 % (45.0-75.0) H Lymphocytes (%) (Auto) 11.6 % (20.0-45.0) L Monocytes (%) (Auto) 8.8 % (1.0-10.0) Eosinophils (%) (Auto) 0.5 % (0.0-3.0) Basophils (%) (Auto) 1.0 % (0.0-2.0) Sodium Level 138 MMOL/L (136-145) Potassium Level 4.3 MMOL/L (3.5-5.1) Chloride Level 105 MMOL/L (98-107) Carbon Dioxide Level 27 MMOL/L (21-32) Anion Gap 6 mmol/L (5-15) Blood Urea Nitrogen 21 mg/dL (7-18) H Creatinine 0.4 MG/DL (0.55-1.30) L Estimat Glomerular Filtration Rate mL/min (>60) Glucose Level 132 MG/DL (74-106) H Calcium Level 8.9 MG/DL (8.5-10.1) Phosphorus Level 3.6 MG/DL (2.5-4.9) Magnesium Level 2.0 MG/DL (1.8-2.4) Total Bilirubin 0.9 MG/DL (0.2-1.0) Direct Bilirubin 0.4 MG/DL (0.0-0.3) H Gamma Glutamyl Transpeptidase 2059 U/L (5-85) H Aspartate Amino Transf (AST/SGOT) 114 U/L (15-37) H Alanine Aminotransferase (ALT/SGPT) 101 U/L (12-78) H Alkaline Phosphatase 1370 U/L (46-116) H Total Protein 5.6 G/DL (6.4-8.2) L Albumin 1.8 G/DL (3.4-5.0) L Height (Feet): 5 Height (Inches): 2.00 Weight (Pounds): 126 General Appearance: WD/WN, no apparent distress, alert, thin Cardiovascular: normal rate Respiratory/Chest: normal breath sounds, no respiratory distress Abdominal Exam: normal bowel sounds, non tender, soft Extremities: normal range of motion, non-tender Objective Resting comfortably Ghanshyam Bryan NP Jul 03, 2018 10:41
[2018-07-03 12:00] VITALS: BP 141/94
--- NOTE | 2018-07-03 13:37 | NUR ---
DISCHARGE PLANNING SPOKE WITH INSURANCE WAREHOUSER~ [facility] IS NOT AUTHORIZING TRANSFER TO [facility] FAMILY REQUESTED INSTRUCTED BY JAZZY TO REFER TO SNF AND SHE WILL CONTINUE TO FOLLOW AT SNF CONTRACTED SNF'S: [facility] CONV SON-LAW NOTIFIED AND AGREED TO [facility] FAXED DR FAYE UPDATED Addendum: 07/03/18 at 1545 by MUNIRA DE SOUZA LVN LVN [facility] SPOKE WITH [facility] AT [facility]...THEY WILL ACCEPT TOMORROW...CALL AND SPEAK TO MARY AT [facility] MESSAGE LEFT FOR DR FAYE...AWAITNG DISCHARGE ORDER
--- NOTE | 2018-07-03 13:49 | NUR ---
RD ASSESSMENT & RECOMMENDATIONS SEE CARE ACTIVITY FOR COMPLETE ASSESSMENT DAILY ESTIMATED NEEDS: Needs based on Cancer 56kg 30-35 kcals/kg 4738-1924 total kcals 1-2 g protein/kg 56-112 g total protein 25-30 mL/kg 9535-6207 total fluid mLs NUTRITION DIAGNOSIS: Increased kcal and protein needs r/t cancer as evidenced by pt w/ ovarian cancer s/p resection, currently w/ poor po intake. CURRENT DIET:Regular puree + Ensure Enlive TID PO DIET RECOMMENDATIONS: Liberalized REGULAR diet/ texture as tolerated or per RESIDENTIAL LIVING ASSISTANT ADDITIONAL RECOMMENDATIONS: 1) Obtain a calibrated bed scale wt-> pt w/ poor po 2) Ensure TID w/ meals 3) Monitor need to change texture for improved acceptance 4) Appetite stimulant if medically appropriate- consistently poor PO 5) Monitor lytes closely, replete as needed- on lasix .
--- NOTE | 2018-07-03 14:21 | Infectious Diseases Prog Note ---
Assessment/Plan Assessment/Plan A 1. Enterococcal , candidal UTI 2. Acute cholecystitis , Cholangitis 3. pleural effusion s/p thoracentesis 4. leucocytosis resolved 5. ovarian cancer 6. s/p IR guided cholecystotomy tube placement P 1. observe off antibiotic Subjective ROS Limited/Unobtainable: Yes Respiratory: Reports: other - left chest pain at site of pleurex catheter Allergies: Coded Allergies: No Known Allergies (Unverified , 06/17/18) Objective Vital Signs Last 24 Hour Vital Signs Date Time Temp Pulse Resp B/P (MAP) Pulse Ox O2 Delivery O2 Flow Rate FiO2 07/03/18 12:00 97.6 118 18 141/94 (110) 97 07/03/18 09:00 Nasal Cannula 3.0 07/03/18 08:00 98.2 109 19 135/92 (106) 93 07/03/18 04:00 98.6 109 18 123/84 (97) 96 07/03/18 00:00 97.2 117 18 110/74 (86) 97 07/02/18 20:17 Nasal Cannula 3.0 07/02/18 20:00 97.7 112 18 118/82 (94) 97 07/02/18 16:00 97.8 106 18 130/95 (107) 98 07/02/18 14:55 119 18 118/88 (98) 100 07/02/18 14:50 124 18 120/90 (100) 95 07/02/18 14:45 121 18 128/85 (99) 97 07/02/18 14:40 132 18 147/110 (122) 93 07/02/18 14:35 122 18 118/83 (95) 93 07/02/18 14:30 118 18 131/80 (97) 93 07/02/18 14:25 119 18 131/93 (106) 95 07/02/18 14:20 110 18 3.0 Height (Feet): 5 Height (Inches): 2.00 Weight (Pounds): 126 General Appearance: no acute distress HEENT: mucous membranes moist Respiratory/Chest: lungs clear, other - left pleral catheter Cardiovascular: normal rate Abdomen: soft, non tender, other - Cholecystostomy tube Extremities: no edema Neurologic/Psychiatric: alert, responsive Laboratory Tests Test 07/03/18 04:50 White Blood Count 7.1 K/UL (4.8-10.8) Red Blood Count 3.70 M/UL (4.20-5.40) L Hemoglobin 11.1 G/DL (12.0-16.0) L Hematocrit 33.6 % (37.0-47.0) L Mean Corpuscular Volume 91 FL (80-99) Mean Corpuscular Hemoglobin 30.1 PG (27.0-31.0) Mean Corpuscular Hemoglobin Concent 33.2 G/DL (32.0-36.0) Red Cell Distribution Width 16.2 % (11.6-14.8) H Platelet Count 519 K/UL (150-450) H Mean Platelet Volume 5.0 FL (6.5-10.1) L Neutrophils (%) (Auto) 78.2 % (45.0-75.0) H Lymphocytes (%) (Auto) 11.6 % (20.0-45.0) L Monocytes (%) (Auto) 8.8 % (1.0-10.0) Eosinophils (%) (Auto) 0.5 % (0.0-3.0) Basophils (%) (Auto) 1.0 % (0.0-2.0) Sodium Level 138 MMOL/L (136-145) Potassium Level 4.3 MMOL/L (3.5-5.1) Chloride Level 105 MMOL/L (98-107) Carbon Dioxide Level 27 MMOL/L (21-32) Anion Gap 6 mmol/L (5-15) Blood Urea Nitrogen 21 mg/dL (7-18) H Creatinine 0.4 MG/DL (0.55-1.30) L Estimat Glomerular Filtration Rate mL/min (>60) Glucose Level 132 MG/DL (74-106) H Calcium Level 8.9 MG/DL (8.5-10.1) Phosphorus Level 3.6 MG/DL (2.5-4.9) Magnesium Level 2.0 MG/DL (1.8-2.4) Total Bilirubin 0.9 MG/DL (0.2-1.0) Direct Bilirubin 0.4 MG/DL (0.0-0.3) H Gamma Glutamyl Transpeptidase 2059 U/L (5-85) H Aspartate Amino Transf (AST/SGOT) 114 U/L (15-37) H Alanine Aminotransferase (ALT/SGPT) 101 U/L (12-78) H Alkaline Phosphatase 1370 U/L (46-116) H Total Protein 5.6 G/DL (6.4-8.2) L Albumin 1.8 G/DL (3.4-5.0) L Current Medications Medications (Trade) Dose Ordered Sig/Susana Route PRN Reason Start Time Stop Time Status Last Admin Dose Admin Acetaminophen (Tylenol) 500 mg Q4H PRN ORAL Mild Pain/Temp > 100.5 06/23/18 11:30 07/17/18 11:29 06/23/18 16:06 Bisacodyl (Dulcolax) 10 mg DAILY ORAL 06/24/18 09:00 07/20/18 08:59 07/03/18 09:21 Docusate Sodium (Colace) 100 mg TWICE A DAY ORAL 06/23/18 18:00 07/19/18 18:59 07/03/18 09:22 Furosemide (Lasix) 20 mg DAILY IV 06/26/18 09:00 07/18/18 08:59 07/03/18 09:23 Heparin Sodium (Porcine) (Heparin 5000 units/ml) 5,000 units EVERY 12 HOURS SUBQ 06/23/18 21:00 07/21/18 08:59 07/03/18 09:24 Magnesium Hydroxide (Mom) 30 ml Q4H PRN ORAL Constipation 06/23/18 14:30 07/19/18 18:29 Morphine Sulfate (Morphine Sulfate) 2 mg Q4H PRN IVP moderate pain 06/29/18 08:00 07/06/18 07:59 07/01/18 16:24 Morphine Sulfate (Morphine Sulfate) 4 mg Q4H PRN IVP severe pain 06/29/18 08:00 07/06/18 07:59 07/03/18 04:21 Pantoprazole (Protonix) 40 mg DAILY ORAL 06/24/18 09:00 07/18/18 08:59 07/03/18 09:21 Potassium Chloride (K-Dur) 40 meq TWICE A DAY ORAL 06/23/18 18:00 07/18/18 17:59 07/03/18 09:22 Zolpidem Tartrate (Ambien) 5 mg HSPRN PRN ORAL Insomnia 06/28/18 20:45 07/05/18 20:44 07/01/18 21:25 Eugenio Goss MD Jul 03, 2018 14:21
--- NOTE | 2018-07-03 14:23 | Nephrology Progress Note ---
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 monitor labs low dose lasix k supplement Subjective ROS Limited/Unobtainable: No Constitutional: Reports: malaise, weakness Objective Objective Last 24 Hour Vital Signs Date Time Temp Pulse Resp B/P (MAP) Pulse Ox O2 Delivery O2 Flow Rate FiO2 07/03/18 12:00 97.6 118 18 141/94 (110) 97 07/03/18 09:00 Nasal Cannula 3.0 07/03/18 08:00 98.2 109 19 135/92 (106) 93 07/03/18 04:00 98.6 109 18 123/84 (97) 96 07/03/18 00:00 97.2 117 18 110/74 (86) 97 07/02/18 20:17 Nasal Cannula 3.0 07/02/18 20:00 97.7 112 18 118/82 (94) 97 07/02/18 16:00 97.8 106 18 130/95 (107) 98 07/02/18 14:55 119 18 118/88 (98) 100 07/02/18 14:50 124 18 120/90 (100) 95 07/02/18 14:45 121 18 128/85 (99) 97 07/02/18 14:40 132 18 147/110 (122) 93 07/02/18 14:35 122 18 118/83 (95) 93 07/02/18 14:30 118 18 131/80 (97) 93 07/02/18 14:25 119 18 131/93 (106) 95 Intake and Output 07/02/18 07/03/18 19:00 07:00 Intake Total 257 ml Output Total 1013 ml 500 ml Balance -756 ml -500 ml Intake Oral 257 ml Output Urine Total 1000 ml 500 ml Other 13 ml # Bowel Movements 2 Laboratory Tests 07/03/18 04:50: White Blood Count 7.1, Red Blood Count 3.70L, Hemoglobin 11.1L, Hematocrit 33.6L , Mean Corpuscular Volume 91, Mean Corpuscular Hemoglobin 30.1, Mean Corpuscular Hemoglobin Concent 33.2, Red Cell Distribution Width 16.2H, Platelet Count 519H, Mean Platelet Volume 5.0L, Neutrophils (%) (Auto) 78.2H, Lymphocytes (%) (Auto) 11.6L, Monocytes (%) (Auto) 8.8, Eosinophils (%) (Auto) 0.5, Basophils (%) (Auto) 1.0, Sodium Level 138, Potassium Level 4.3, Chloride Level 105, Carbon Dioxide Level 27, Anion Gap 6, Blood Urea Nitrogen 21H, Creatinine 0.4L, Estimat Glomerular Filtration Rate , Glucose Level 132H, Calcium Level 8.9, Phosphorus Level 3.6, Magnesium Level 2.0, Total Bilirubin 0.9, Direct Bilirubin 0.4H, Gamma Glutamyl Transpeptidase 2059H, Aspartate Amino Transf (AST/SGOT) 114H, Alanine Aminotransferase (ALT/SGPT) 101H, Alkaline Phosphatase 1370H, Total Protein 5.6L, Albumin 1.8L Height (Feet): 5 Height (Inches): 2.00 Weight (Pounds): 126 General Appearance: no apparent distress Cardiovascular: normal rate, tachycardia Respiratory/Chest: decreased breath sounds Abdomen: distended Objective no change Jae Walker MD Jul 03, 2018 14:23
--- NOTE | 2018-07-03 15:00 | NUR ---
NURSE NOTES: Wound care photo taken of left heel and heel protectors applied. Will continue to monitor.
--- NOTE | 2018-07-03 15:10 | Surgery Progress Note ---
Surgery Progress Note Subjective Symptoms: improved Objective Last 24 Hour Vital Signs Date Time Temp Pulse Resp B/P (MAP) Pulse Ox O2 Delivery O2 Flow Rate FiO2 07/03/18 12:00 97.6 118 18 141/94 (110) 97 07/03/18 09:00 Nasal Cannula 3.0 07/03/18 08:00 98.2 109 19 135/92 (106) 93 07/03/18 04:00 98.6 109 18 123/84 (97) 96 07/03/18 00:00 97.2 117 18 110/74 (86) 97 07/02/18 20:17 Nasal Cannula 3.0 07/02/18 20:00 97.7 112 18 118/82 (94) 97 07/02/18 16:00 97.8 106 18 130/95 (107) 98 I&O Intake and Output 07/02/18 07/03/18 19:00 07:00 Intake Total 257 ml Output Total 1013 ml 500 ml Balance -756 ml -500 ml Intake Oral 257 ml Output Urine Total 1000 ml 500 ml Other 13 ml # Bowel Movements 2 Dressing: other Wound: other Drains: other Cardiovascular: RSR Respiratory: clear Abdomen: soft, non-tender, non-distended Extremities: other Laboratory Tests Test 07/03/18 04:50 White Blood Count 7.1 K/UL (4.8-10.8) Red Blood Count 3.70 M/UL (4.20-5.40) L Hemoglobin 11.1 G/DL (12.0-16.0) L Hematocrit 33.6 % (37.0-47.0) L Mean Corpuscular Volume 91 FL (80-99) Mean Corpuscular Hemoglobin 30.1 PG (27.0-31.0) Mean Corpuscular Hemoglobin Concent 33.2 G/DL (32.0-36.0) Red Cell Distribution Width 16.2 % (11.6-14.8) H Platelet Count 519 K/UL (150-450) H Mean Platelet Volume 5.0 FL (6.5-10.1) L Neutrophils (%) (Auto) 78.2 % (45.0-75.0) H Lymphocytes (%) (Auto) 11.6 % (20.0-45.0) L Monocytes (%) (Auto) 8.8 % (1.0-10.0) Eosinophils (%) (Auto) 0.5 % (0.0-3.0) Basophils (%) (Auto) 1.0 % (0.0-2.0) Sodium Level 138 MMOL/L (136-145) Potassium Level 4.3 MMOL/L (3.5-5.1) Chloride Level 105 MMOL/L (98-107) Carbon Dioxide Level 27 MMOL/L (21-32) Anion Gap 6 mmol/L (5-15) Blood Urea Nitrogen 21 mg/dL (7-18) H Creatinine 0.4 MG/DL (0.55-1.30) L Estimat Glomerular Filtration Rate mL/min (>60) Glucose Level 132 MG/DL (74-106) H Calcium Level 8.9 MG/DL (8.5-10.1) Phosphorus Level 3.6 MG/DL (2.5-4.9) Magnesium Level 2.0 MG/DL (1.8-2.4) Total Bilirubin 0.9 MG/DL (0.2-1.0) Direct Bilirubin 0.4 MG/DL (0.0-0.3) H Gamma Glutamyl Transpeptidase 2059 U/L (5-85) H Aspartate Amino Transf (AST/SGOT) 114 U/L (15-37) H Alanine Aminotransferase (ALT/SGPT) 101 U/L (12-78) H Alkaline Phosphatase 1370 U/L (46-116) H Total Protein 5.6 G/DL (6.4-8.2) L Albumin 1.8 G/DL (3.4-5.0) L Plan Problems: (1) Cholecystitis Assessment & Plan: acute cholecystitis ovarian cancer with mets complicated medical and surgical history Cholelithiasis and gallbladder wall thickening. Note that recent hepatobiliary nuclear scan is positive for acute cholecystitis. Given the nodular and irregular appearance of the gallbladder wall, possibly a gallbladder neoplasm should also be considered Unusual enhancement of the biliary ductal hernandez, raising concern for cholangitis. Correlate with clinical history and findings cholecystotomy tube placed - Successful percutaneous cholecystostomy under ultrasound and fluoroscopic guidance. Note that aspiration of the gallbladder yielded approximately 15 mL of darshan pus given above no surgery recommended. cont current care tube care okay to d/c from surgical standpoint tube needs to stay in for 6 weeks then can d/c will follow with recs as results available thank you (2) Abdominal pain Rich Kiran Jul 03, 2018 15:10
[2018-07-03 16:00] VITALS: BP 107/74
--- NOTE | 2018-07-03 16:17 | NUR ---
CASE MANAGEMENT:REVIEW 07/03/18 SI: RESP DISTRESS. RECURRENT PLEURAL EFF(S/P THORACENTESIS) PATIENT HAS BILATERAL PLEURAL DRAINS 97.6 118 18 141/94 97% ON 3L/NC IS: IV LASIX QD PROTONIX PO QD HEPARIN SQ Q12 K-DUR PO BID : MED/SURG STATUS 3 EAST DCP: PATIENT IS FROM HOME PLAN: REFERRED TO [facility] WILL ACCEPT TOMORROW
--- NOTE | 2018-07-03 16:26 | NUR ---
[facility] NCM: JAZZY T: [phone] [id number] AUTH 2018 [id number]
--- NOTE | 2018-07-03 19:00 | NUR ---
HAND-OFF: Report given to Cecy KIRBY. Patient in stable condition.
[2018-07-03] MEDS ORDERED: Tubing IV Secondary IV ONE (19:11)
--- NOTE | 2018-07-03 19:19 | General Progress Note ---
Assessment/Plan Problem List: (1) Ovarian carcinoma ICD Codes: C56.9 - Malignant neoplasm of unspecified ovary SNOMED: 664557528 Qualifiers: Qualified Codes: C56.9 - Malignant neoplasm of unspecified ovary (2) Respiratory distress ICD Codes: R06.03 - Acute respiratory distress SNOMED: 836409165 (3) Pleural effusion ICD Codes: J90 - Pleural effusion, not elsewhere classified SNOMED: 22812940 (4) Hypoalbuminemia ICD Codes: E88.09 - Other disorders of plasma-protein metabolism, not elsewhere classified SNOMED: 703587333 Status: progressing Assessment/Plan acute cholycystitis s/p drain dc to any snf w drain in place per dr jacobsen pleural effusion s/p drain s/p rcent ovarian removal and hysterectomy Subjective Gastrointestinal/Abdominal: Reports: abdominal pain Allergies: Coded Allergies: No Known Allergies (Unverified , 06/17/18) Subjective abdominal pain sob Objective Last 24 Hour Vital Signs Date Time Temp Pulse Resp B/P (MAP) Pulse Ox O2 Delivery O2 Flow Rate FiO2 07/03/18 16:00 97.8 114 20 107/74 (85) 98 07/03/18 12:00 97.6 118 18 141/94 (110) 97 07/03/18 09:00 Nasal Cannula 3.0 07/03/18 08:00 98.2 109 19 135/92 (106) 93 07/03/18 04:00 98.6 109 18 123/84 (97) 96 07/03/18 00:00 97.2 117 18 110/74 (86) 97 07/02/18 20:17 Nasal Cannula 3.0 07/02/18 20:00 97.7 112 18 118/82 (94) 97 Intake and Output 07/02/18 07/03/18 19:00 07:00 Intake Total 257 ml Output Total 1013 ml 500 ml Balance -756 ml -500 ml Intake Oral 257 ml Output Urine Total 1000 ml 500 ml Other 13 ml # Bowel Movements 2 Laboratory Tests 07/03/18 04:50: White Blood Count 7.1, Red Blood Count 3.70L, Hemoglobin 11.1L, Hematocrit 33.6L , Mean Corpuscular Volume 91, Mean Corpuscular Hemoglobin 30.1, Mean Corpuscular Hemoglobin Concent 33.2, Red Cell Distribution Width 16.2H, Platelet Count 519H, Mean Platelet Volume 5.0L, Neutrophils (%) (Auto) 78.2H, Lymphocytes (%) (Auto) 11.6L, Monocytes (%) (Auto) 8.8, Eosinophils (%) (Auto) 0.5, Basophils (%) (Auto) 1.0, Sodium Level 138, Potassium Level 4.3, Chloride Level 105, Carbon Dioxide Level 27, Anion Gap 6, Blood Urea Nitrogen 21H, Creatinine 0.4L, Estimat Glomerular Filtration Rate , Glucose Level 132H, Calcium Level 8.9, Phosphorus Level 3.6, Magnesium Level 2.0, Total Bilirubin 0.9, Direct Bilirubin 0.4H, Gamma Glutamyl Transpeptidase 2059H, Aspartate Amino Transf (AST/SGOT) 114H, Alanine Aminotransferase (ALT/SGPT) 101H, Alkaline Phosphatase 1370H, Total Protein 5.6L, Albumin 1.8L Height (Feet): 5 Height (Inches): 2.00 Weight (Pounds): 126 Cardiovascular: normal rate Respiratory/Chest: lungs clear Abdomen: tender Vane Stephenson MD Jul 03, 2018 19:18
[2018-07-03 20:00] VITALS: BP 110/76
--- NOTE | 2018-07-03 20:00 | NUR ---
NURSE NOTES: Received patient in no apparent distress. NC 3L is on, no s/s of respiratory distress noted. IV site patent and intact. Left pleural drainage cath, dressing dry and intact. Cholecystotomy cath on right abdomen, dressing dry and intact. De Santiago cath in place, draining well by gravity, yellow urine noted. Patient c/o abdominal pain, 8/10, will give pain medication as ordered. Bed in lowest position. Call light within reach. Will continue to monitor.
--- NOTE | 2018-07-03 22:53 | General Progress Note ---
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 and presumed malignant effusions --> review outside imaging and treatments patient has received --> outside labs and pathology to be reviewed --> defer to outpatient oncologist for further care, patient requires followup, has followup with [facility] --> recent surgery 05/2018, was date of initial dx # Thrombocytosis - likely related to reactive process, ovarian cancer potential hx of mets --> Continue to monitor for improvement --> plt trend: 860-->863-->917-->937 --> Trend CBC as needed --> Jak2 has been ordered --> Smear reviewed and no abnormalities noted. *Under manual differential # Anemia of chronic disease (or of iron deficiency) due to underlying chronic medical issues, multifactorial --> Anemia workup has been reviewed, --> No evidence of hemolysis is noted, peripheral smear has been reviewed. --> Hgb goal >7. Transfuse prn. --> Epogen or iron at this time is not particularly indicated --> Medications have been reviewed # Leukocytosis. Likely related to underlying infection versus reactive process. --> Peripheral has been ordered, no blasts are noted --> Medications have been reviewed --> Imaging has been reviewed --> Blood cultures and urine cultures prn --> has been started on abx, empiric treatment # Shortness of breath # Large bilateral pleural effusions --> thoracentesis eval with pleural fluid studies --> 06/18: Successful ultrasound-guided right thoracentesis, yielding 0.8 liters of fluid The timing of this note does not necessarily reflect the time of the patient was seen. Greatly appreciate consultation! Subjective Date patient seen: Jul 02, 2018 Constitutional: Denies: no symptoms, chills, diaphoresis, fever, malaise, weakness, other HEENT: Denies: no symptoms, eye pain, blurred vision, tearing, double vision, ear pain, ear discharge, nose pain, nose congestion, throat pain, throat swelling, mouth pain, mouth swelling, other Cardiovascular: Denies: no symptoms, chest pain, edema, irregular heart rate, lightheadedness, palpitations, syncope, other Gastrointestinal/Abdominal: Denies: no symptoms, abdomen distended, abdominal pain, black stools, tarry stools, blood in stool, constipated, diarrhea, difficulty swallowing, nausea, poor appetite, poor fluid intake, rectal bleeding , vomiting, other Genitourinary: Denies: no symptoms, burning, discharge, frequency, flank pain, hematuria, incontinence, pain, urgency, other Endocrine: Denies: no symptoms, excessive sweating, flushing, intolerance to cold, intolerance to heat, increased hunger, increased thirst, increased urine, unexplained weight gain, unexplained weight loss, other Allergies: Coded Allergies: No Known Allergies (Unverified , 06/17/18) Subjective 06/18: thoracentesis eval with pleural fluid studies today, plt remains elevated. 06/19: seen by bedside, no acute distress, no signs of pain. No pneumothorax is reported on CXR 06/22: Patient is is resting in bed with family at bed side. Patient has pain which is at a moderate level and tolerated on the Morphine. HIDA scan reveals, suspicious for acute cholecystitis. plt continue to be elevated and trending up. 06/23: seen by bedside, awake, comfortable, no acute distress, no events 06/24: HIDA reviewed >> suggestive of acute cholecystitis, no plans for GI procedures at this time, patient will need follow up imaging for her cirrhosis and ascites, continues to have abdominal pain 06/25: awake, comfortable, no acute distress. 06/26: No acute events, s/p cholecystostomy tube placement. 06/28: s/p cholecystostomy tube, CT and MRCP reviewed, no plans for ERCP given no dilated duct and poor prognosis 06/29: seen by bedside, complains of abdominal pain . 06/30: seen by bedside, awake comfortable, no acute events. plt trending down 07/01: Pt is awake and comfortable, no acute distress. 07/02: plt remans elevated at 519, pleural effusions/p rcent ovarian removal and hysterectomy, pt is getting drain today by ir for pleural effusion Objective Last 24 Hour Vital Signs Date Time Temp Pulse Resp B/P (MAP) Pulse Ox O2 Delivery O2 Flow Rate FiO2 07/03/18 21:00 Nasal Cannula 3.0 07/03/18 20:00 97.2 113 18 110/76 (87) 98 07/03/18 19:54 Nasal Cannula 3.0 32 07/03/18 19:54 97 Nasal Cannula 3.0 32 07/03/18 16:00 97.8 114 20 107/74 (85) 98 07/03/18 12:00 97.6 118 18 141/94 (110) 97 07/03/18 09:00 Nasal Cannula 3.0 07/03/18 08:00 98.2 109 19 135/92 (106) 93 07/03/18 04:00 98.6 109 18 123/84 (97) 96 07/03/18 00:00 97.2 117 18 110/74 (86) 97 Intake and Output 07/02/18 07/03/18 19:00 07:00 Intake Total 257 ml Output Total 1013 ml 500 ml Balance -756 ml -500 ml Intake Oral 257 ml Output Urine Total 1000 ml 500 ml Other 13 ml # Bowel Movements 2 Laboratory Tests 07/03/18 04:50: White Blood Count 7.1, Red Blood Count 3.70L, Hemoglobin 11.1L, Hematocrit 33.6L , Mean Corpuscular Volume 91, Mean Corpuscular Hemoglobin 30.1, Mean Corpuscular Hemoglobin Concent 33.2, Red Cell Distribution Width 16.2H, Platelet Count 519H, Mean Platelet Volume 5.0L, Neutrophils (%) (Auto) 78.2H, Lymphocytes (%) (Auto) 11.6L, Monocytes (%) (Auto) 8.8, Eosinophils (%) (Auto) 0.5, Basophils (%) (Auto) 1.0, Sodium Level 138, Potassium Level 4.3, Chloride Level 105, Carbon Dioxide Level 27, Anion Gap 6, Blood Urea Nitrogen 21H, Creatinine 0.4L, Estimat Glomerular Filtration Rate , Glucose Level 132H, Calcium Level 8.9, Phosphorus Level 3.6, Magnesium Level 2.0, Total Bilirubin 0.9, Direct Bilirubin 0.4H, Gamma Glutamyl Transpeptidase 2059H, Aspartate Amino Transf (AST/SGOT) 114H, Alanine Aminotransferase (ALT/SGPT) 101H, Alkaline Phosphatase 1370H, Total Protein 5.6L, Albumin 1.8L Height (Feet): 5 Height (Inches): 2.00 Weight (Pounds): 126 Objective Physical Exam General Appearance: no apparent distress, alert HEENT: normocephalic, atraumatic Neck: supple Respiratory/Chest: decreased breath sounds Cardiovascular/Chest: normal rate, regular rhythm Abdomen: non tender, soft Extremities: no edema Keegan Flores MD Jul 03, 2018 22:53
--- NOTE | 2018-07-03 23:07 | General Progress Note ---
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 and presumed malignant effusions --> review outside imaging and treatments patient has received --> outside labs and pathology to be reviewed --> defer to outpatient oncologist for further care, patient requires followup, has followup with [facility] --> recent surgery 05/2018, was date of initial dx # Thrombocytosis - likely related to reactive process, ovarian cancer potential hx of mets --> Continue to monitor for improvement --> plt trend: 860-->863-->917-->937 --> Trend CBC as needed --> Jak2 has been ordered --> Smear reviewed and no abnormalities noted. *Under manual differential # Anemia of chronic disease (or of iron deficiency) due to underlying chronic medical issues, multifactorial --> Anemia workup has been reviewed, --> No evidence of hemolysis is noted, peripheral smear has been reviewed. --> Hgb goal >7. Transfuse prn. --> Epogen or iron at this time is not particularly indicated --> Medications have been reviewed # Leukocytosis. Likely related to underlying infection versus reactive process. --> Peripheral has been ordered, no blasts are noted --> Medications have been reviewed --> Imaging has been reviewed --> Blood cultures and urine cultures prn --> has been started on abx, empiric treatment # Shortness of breath # Large bilateral pleural effusions --> thoracentesis eval with pleural fluid studies --> 06/18: Successful ultrasound-guided right thoracentesis, yielding 0.8 liters of fluid The timing of this note does not necessarily reflect the time of the patient was seen. Greatly appreciate consultation! Subjective Constitutional: Denies: no symptoms, chills, diaphoresis, fever, malaise, weakness, other HEENT: Denies: no symptoms, eye pain, blurred vision, tearing, double vision, ear pain, ear discharge, nose pain, nose congestion, throat pain, throat swelling, mouth pain, mouth swelling, other Cardiovascular: Denies: no symptoms, chest pain, edema, irregular heart rate, lightheadedness, palpitations, syncope, other Respiratory: Denies: no symptoms, cough, orthopnea, shortness of breath, SOB with excertion, SOB at rest, sputum, stridor, wheezing, other Gastrointestinal/Abdominal: Denies: no symptoms, abdomen distended, abdominal pain, black stools, tarry stools, blood in stool, constipated, diarrhea, difficulty swallowing, nausea, poor appetite, poor fluid intake, rectal bleeding , vomiting, other Genitourinary: Denies: no symptoms, burning, discharge, frequency, flank pain, hematuria, incontinence, pain, urgency, other Endocrine: Denies: no symptoms, excessive sweating, flushing, intolerance to cold, intolerance to heat, increased hunger, increased thirst, increased urine, unexplained weight gain, unexplained weight loss, other Hematologic/Lymphatic: Denies: no symptoms, anemia, easy bleeding, easy bruising, other Allergies: Coded Allergies: No Known Allergies (Unverified , 06/17/18) Subjective 06/18: thoracentesis eval with pleural fluid studies today, plt remains elevated. 06/19: seen by bedside, no acute distress, no signs of pain. No pneumothorax is reported on CXR 06/22: Patient is is resting in bed with family at bed side. Patient has pain which is at a moderate level and tolerated on the Morphine. HIDA scan reveals, suspicious for acute cholecystitis. plt continue to be elevated and trending up. 06/23: seen by bedside, awake, comfortable, no acute distress, no events 06/24: HIDA reviewed >> suggestive of acute cholecystitis, no plans for GI procedures at this time, patient will need follow up imaging for her cirrhosis and ascites, continues to have abdominal pain 06/25: awake, comfortable, no acute distress. 06/26: No acute events, s/p cholecystostomy tube placement. 06/28: s/p cholecystostomy tube, CT and MRCP reviewed, no plans for ERCP given no dilated duct and poor prognosis 06/29: seen by bedside, complains of abdominal pain . 06/30: seen by bedside, awake comfortable, no acute events. plt trending down 07/01: Pt is awake and comfortable, no acute distress. 07/02: plt remans elevated at 519, pleural effusions/p rcent ovarian removal and hysterectomy, pt is getting drain today by ir for pleural effusion 07/03: awake, comfortable, no acute distress. Objective Last 24 Hour Vital Signs Date Time Temp Pulse Resp B/P (MAP) Pulse Ox O2 Delivery O2 Flow Rate FiO2 07/03/18 21:00 Nasal Cannula 3.0 07/03/18 20:00 97.2 113 18 110/76 (87) 98 07/03/18 19:54 Nasal Cannula 3.0 32 07/03/18 19:54 97 Nasal Cannula 3.0 32 07/03/18 16:00 97.8 114 20 107/74 (85) 98 07/03/18 12:00 97.6 118 18 141/94 (110) 97 07/03/18 09:00 Nasal Cannula 3.0 07/03/18 08:00 98.2 109 19 135/92 (106) 93 07/03/18 04:00 98.6 109 18 123/84 (97) 96 07/03/18 00:00 97.2 117 18 110/74 (86) 97 Intake and Output 07/02/18 07/03/18 19:00 07:00 Intake Total 257 ml Output Total 1013 ml 500 ml Balance -756 ml -500 ml Intake Oral 257 ml Output Urine Total 1000 ml 500 ml Other 13 ml # Bowel Movements 2 Laboratory Tests 07/03/18 04:50: White Blood Count 7.1, Red Blood Count 3.70L, Hemoglobin 11.1L, Hematocrit 33.6L , Mean Corpuscular Volume 91, Mean Corpuscular Hemoglobin 30.1, Mean Corpuscular Hemoglobin Concent 33.2, Red Cell Distribution Width 16.2H, Platelet Count 519H, Mean Platelet Volume 5.0L, Neutrophils (%) (Auto) 78.2H, Lymphocytes (%) (Auto) 11.6L, Monocytes (%) (Auto) 8.8, Eosinophils (%) (Auto) 0.5, Basophils (%) (Auto) 1.0, Sodium Level 138, Potassium Level 4.3, Chloride Level 105, Carbon Dioxide Level 27, Anion Gap 6, Blood Urea Nitrogen 21H, Creatinine 0.4L, Estimat Glomerular Filtration Rate , Glucose Level 132H, Calcium Level 8.9, Phosphorus Level 3.6, Magnesium Level 2.0, Total Bilirubin 0.9, Direct Bilirubin 0.4H, Gamma Glutamyl Transpeptidase 2059H, Aspartate Amino Transf (AST/SGOT) 114H, Alanine Aminotransferase (ALT/SGPT) 101H, Alkaline Phosphatase 1370H, Total Protein 5.6L, Albumin 1.8L Height (Feet): 5 Height (Inches): 2.00 Weight (Pounds): 126 Objective Physical Exam General Appearance: no apparent distress, alert HEENT: normocephalic, atraumatic Neck: supple Respiratory/Chest: decreased breath sounds Cardiovascular/Chest: normal rate, regular rhythm Abdomen: non tender, soft Extremities: no edema Keegan Flores MD Jul 03, 2018 23:07
--- NOTE | 2018-07-03 23:55 | Cardiology Progress Note ---
Assessment/Plan Assessment/Plan 1. Sinus tachycardia, likely due to sepsis, low intravascular volume depletion due to low oncotic pressure, or tumor burden. 2. B/L pleural effusion, s/p thoracentesis 3. Metastatic ovarian cancer 4. FTT 5. Respiratory failure. 6. Encephalopathy 7. Moderate pulmonary HTN. 8. Sepsis, s/p cholecystostomy. Subjective Subjective No chest pain or SOB. Objective Last 24 Hour Vital Signs Date Time Temp Pulse Resp B/P (MAP) Pulse Ox O2 Delivery O2 Flow Rate FiO2 07/03/18 21:00 Nasal Cannula 3.0 07/03/18 20:00 97.2 113 18 110/76 (87) 98 07/03/18 19:54 Nasal Cannula 3.0 32 07/03/18 19:54 97 Nasal Cannula 3.0 32 07/03/18 16:00 97.8 114 20 107/74 (85) 98 07/03/18 12:00 97.6 118 18 141/94 (110) 97 07/03/18 09:00 Nasal Cannula 3.0 07/03/18 08:00 98.2 109 19 135/92 (106) 93 07/03/18 04:00 98.6 109 18 123/84 (97) 96 07/03/18 00:00 97.2 117 18 110/74 (86) 97 Intake and Output 07/02/18 07/03/18 19:00 07:00 Intake Total 257 ml Output Total 1013 ml 500 ml Balance -756 ml -500 ml Intake Oral 257 ml Output Urine Total 1000 ml 500 ml Other 13 ml # Bowel Movements 2 Laboratory Tests Test 07/03/18 04:50 White Blood Count 7.1 K/UL (4.8-10.8) Red Blood Count 3.70 M/UL (4.20-5.40) L Hemoglobin 11.1 G/DL (12.0-16.0) L Hematocrit 33.6 % (37.0-47.0) L Mean Corpuscular Volume 91 FL (80-99) Mean Corpuscular Hemoglobin 30.1 PG (27.0-31.0) Mean Corpuscular Hemoglobin Concent 33.2 G/DL (32.0-36.0) Red Cell Distribution Width 16.2 % (11.6-14.8) H Platelet Count 519 K/UL (150-450) H Mean Platelet Volume 5.0 FL (6.5-10.1) L Neutrophils (%) (Auto) 78.2 % (45.0-75.0) H Lymphocytes (%) (Auto) 11.6 % (20.0-45.0) L Monocytes (%) (Auto) 8.8 % (1.0-10.0) Eosinophils (%) (Auto) 0.5 % (0.0-3.0) Basophils (%) (Auto) 1.0 % (0.0-2.0) Sodium Level 138 MMOL/L (136-145) Potassium Level 4.3 MMOL/L (3.5-5.1) Chloride Level 105 MMOL/L (98-107) Carbon Dioxide Level 27 MMOL/L (21-32) Anion Gap 6 mmol/L (5-15) Blood Urea Nitrogen 21 mg/dL (7-18) H Creatinine 0.4 MG/DL (0.55-1.30) L Estimat Glomerular Filtration Rate mL/min (>60) Glucose Level 132 MG/DL (74-106) H Calcium Level 8.9 MG/DL (8.5-10.1) Phosphorus Level 3.6 MG/DL (2.5-4.9) Magnesium Level 2.0 MG/DL (1.8-2.4) Total Bilirubin 0.9 MG/DL (0.2-1.0) Direct Bilirubin 0.4 MG/DL (0.0-0.3) H Gamma Glutamyl Transpeptidase 2059 U/L (5-85) H Aspartate Amino Transf (AST/SGOT) 114 U/L (15-37) H Alanine Aminotransferase (ALT/SGPT) 101 U/L (12-78) H Alkaline Phosphatase 1370 U/L (46-116) H Total Protein 5.6 G/DL (6.4-8.2) L Albumin 1.8 G/DL (3.4-5.0) L Objective HEENT: Atraumatic and normocephalic. Anicteric. Pupils are equal, round, and reactive to light and accommodation. Extraocular muscles intact. NECK: JVP less than 5 cm. No carotid bruit. Carotid upstrokes 2+ bilaterally. CARDIOVASCULAR: Normal S1, S2. Regular rate and rhythm. Tachycardic. No murmurs, gallops, or rubs. LUNGS: Diminished breath sounds in both bases. ABDOMEN: Soft, nontender, and nondistended. No hepatosplenomegaly. Positive bowel sounds. An abdominal incision site is clean. EXTREMITIES: No evidence of edema, clubbing, or cyanosis. Andrew Man MD Jul 03, 2018 23:55
[2018-07-04] VITALS: BP 110/77
[2018-07-04] MEDS: Morphine Sulfate 4mg/ml Inj (IV USE ONLY) IVP PRN ×2 (03:49→23:55)
[2018-07-04 04:00] VITALS: BP 114/76
[2018-07-04 06:51] LABS: BASOPHILS % (AUTO) 1.1 % (0.0-2.0); EOSINOPHILS % (AUTO) 1.2 % (0.0-3.0); HEMATOCRIT 33.1 % (37.0-47.0); HEMOGLOBIN 10.9 G/DL (12.0-16.0); LYMPHOCYTES % (AUTO) 12.1 % (20.0-45.0); MEAN CORPUSCULAR VOLUME 90 FL (80-99); NEUTROPHILS % (AUTO) 76.5 % (45.0-75.0); PLATELET COUNT 524 K/UL (150-450); RED BLOOD COUNT 3.66 M/UL (4.20-5.40); WHITE BLOOD COUNT 8.1 K/UL (4.8-10.8)
[2018-07-04 07:18] LABS: ANION GAP 5 mmol/L (5-15); BLOOD UREA NITROGEN 22 mg/dL (7-18); CALCIUM 9.1 MG/DL (8.5-10.1); CARBON DIOXIDE 28 MMOL/L (21-32); CHLORIDE 102 MMOL/L (98-107); CREATININE 0.5 MG/DL (0.55-1.30); POTASSIUM 4.5 MMOL/L (3.5-5.1); SODIUM 135 MMOL/L (136-145)
--- NOTE | 2018-07-04 07:30 | NUR ---
HAND-OFF: Report given to Ana Morley RN.
--- NOTE | 2018-07-04 07:35 | NUR ---
NURSE NOTES: Received report from Cecy Nolan RN. Rounding done with outgoing nurse. Patient a/o x4 lying on the bed. Amharic speaking only. No respiratory distress noted. Denies any pain at this time. [place] catheter is patent. Right cholecystostomy drainage bag and left pleural drainage catheter is in placed. Patient wants to get warm water and will be given. Bed in lowest position, call light within reach. Will continue to monitor.
[2018-07-04 08:00] VITALS: BP 135/88
[2018-07-04] MEDS: Bisacodyl EC 5mg tab ORAL SCH (08:33)
[2018-07-04] MEDS: Docusate 100mg cap ORAL SCH ×2 (08:33→17:33)
[2018-07-04] MEDS: Heparin 5000 units/ml inj SUBQ SCH ×2 (08:35→20:44)
--- NOTE | 2018-07-04 09:30 | NUR ---
NURSE NOTES: Called Dr. Franklin and state he is not on the case for the patient.
--- NOTE | 2018-07-04 10:00 | NUR ---
NURSE NOTES: Called Dr. Patel and left the message regarding clearance for d/c. Waiting MD call back.
--- NOTE | 2018-07-04 10:50 | NUR ---
NURSE NOTES: Called Dr. Stephenson and left the message regarding Dr. Franklin is not on the case. Elfie, Charge nurse notified and charge nurse notified to nursing production supervisor trainee.
--- NOTE | 2018-07-04 11:03 | Infectious Diseases Prog Note ---
"Assessment/Plan Assessment/Plan antibiotics : none A 1. enterococcus | fungal UTI s/p rx 2. acute cholecystitis s/p cholecystostomy increased LFT 3. pleural effusion s/p thoracentesis 4. leucocytosis resolved 5. ovarian cancer P 1. continue off antibiotics Subjective ROS Limited/Unobtainable: Yes Allergies: Coded Allergies: No Known Allergies (Unverified , 06/17/18) Objective Vital Signs Last 24 Hour Vital Signs Date Time Temp Pulse Resp B/P (MAP) Pulse Ox O2 Delivery O2 Flow Rate FiO2 07/04/18 09:00 Nasal Cannula 3.0 07/04/18 08:00 97.4 107 19 135/88 (104) 97 07/04/18 04:00 97.4 111 18 114/76 (89) 96 07/04/18 00:00 97.4 111 18 110/77 (88) 98 07/03/18 21:00 Nasal Cannula 3.0 07/03/18 20:00 97.2 113 18 110/76 (87) 98 07/03/18 19:54 Nasal Cannula 3.0 32 07/03/18 19:54 97 Nasal Cannula 3.0 32 07/03/18 16:00 97.8 114 20 107/74 (85) 98 07/03/18 12:00 97.6 118 18 141/94 (110) 97 Height (Feet): 5 Height (Inches): 2.00 Weight (Pounds): 126 Respiratory/Chest: lungs clear Cardiovascular: normal rate, regular rhythm, no gallop/murmur Abdomen: soft, non tender, other - wound clean, drain Extremities: no edema Laboratory Tests Test 07/04/18 06:00 White Blood Count 8.1 K/UL (4.8-10.8) Red Blood Count 3.66 M/UL (4.20-5.40) L Hemoglobin 10.9 G/DL (12.0-16.0) L Hematocrit 33.1 % (37.0-47.0) L Mean Corpuscular Volume 90 FL (80-99) Mean Corpuscular Hemoglobin 29.9 PG (27.0-31.0) Mean Corpuscular Hemoglobin Concent 33.1 G/DL (32.0-36.0) Red Cell Distribution Width 16.0 % (11.6-14.8) H Platelet Count 524 K/UL (150-450) H Mean Platelet Volume 4.9 FL (6.5-10.1) L Neutrophils (%) (Auto) 76.5 % (45.0-75.0) H Lymphocytes (%) (Auto) 12.1 % (20.0-45.0) L Monocytes (%) (Auto) 9.0 % (1.0-10.0) Eosinophils (%) (Auto) 1.2 % (0.0-3.0) Basophils (%) (Auto) 1.1 % (0.0-2.0) Sodium Level 135 MMOL/L (136-145) L Potassium Level 4.5 MMOL/L (3.5-5.1) Chloride Level 102 MMOL/L (98-107) Carbon Dioxide Level 28 MMOL/L (21-32) Anion Gap 5 mmol/L (5-15) Blood Urea Nitrogen 22 mg/dL (7-18) H Creatinine 0.5 MG/DL (0.55-1.30) L Estimat Glomerular Filtration Rate mL/min (>60) Glucose Level 145 MG/DL (74-106) H Calcium Level 9.1 MG/DL (8.5-10.1) Current Medications Medications (Trade) Dose Ordered Sig/Susana Route PRN Reason Start Time Stop Time Status Last Admin Dose Admin Acetaminophen (Tylenol) 500 mg Q4H PRN ORAL Mild Pain/Temp > 100.5 06/23/18 11:30 07/17/18 11:29 06/23/18 16:06 Bisacodyl (Dulcolax) 10 mg DAILY ORAL 06/24/18 09:00 07/20/18 08:59 07/04/18 08:33 Docusate Sodium (Colace) 100 mg TWICE A DAY ORAL 06/23/18 18:00 07/19/18 18:59 07/04/18 08:33 Furosemide (Lasix) 20 mg DAILY IV 06/26/18 09:00 07/18/18 08:59 07/04/18 08:34 Heparin Sodium (Porcine) (Heparin 5000 units/ml) 5,000 units EVERY 12 HOURS SUBQ 06/23/18 21:00 07/21/18 08:59 07/04/18 08:35 Magnesium Hydroxide (Mom) 30 ml Q4H PRN ORAL Constipation 06/23/18 14:30 07/19/18 18:29 Morphine Sulfate (Morphine Sulfate) 2 mg Q4H PRN IVP moderate pain 06/29/18 08:00 07/06/18 07:59 07/01/18 16:24 Morphine Sulfate (Morphine Sulfate) 4 mg Q4H PRN IVP severe pain 06/29/18 08:00 07/06/18 07:59 07/04/18 03:49 Pantoprazole (Protonix) 40 mg DAILY ORAL 06/24/18 09:00 07/18/18 08:59 07/04/18 08:33 Potassium Chloride (K-Dur) 40 meq TWICE A DAY ORAL 06/23/18 18:00 07/18/18 17:59 07/04/18 08:33 Zolpidem Tartrate (Ambien) 5 mg HSPRN PRN ORAL Insomnia 06/28/18 20:45 07/05/18 20:44 07/01/18 21:25 Aurora Phillips MD Jul 04, 2018 11:03"
--- NOTE | 2018-07-04 11:20 | NUR ---
NURSE NOTES: Dr. Stephenson called and ordered. 1. Call Dr. Patel to obtain clearance for d/c to SNF with the tube 2. d/c hospital meds, continue home meds when pt d/c to SNF 3. Remove landeros catheter before going to SNF Noted and carried out.
--- NOTE | 2018-07-04 11:36 | NUR ---
NURSE NOTES: Called Dr. Patel and left the message.
[2018-07-04 12:00] VITALS: BP 106/74
--- NOTE | 2018-07-04 13:08 | Surgery Progress Note ---
Surgery Progress Note Subjective Symptoms: improved, tolerating diet, passing flatus Objective Last 24 Hour Vital Signs Date Time Temp Pulse Resp B/P (MAP) Pulse Ox O2 Delivery O2 Flow Rate FiO2 07/04/18 12:00 97.2 110 18 106/74 (85) 97 07/04/18 09:00 Nasal Cannula 3.0 07/04/18 08:00 97.4 107 19 135/88 (104) 97 07/04/18 04:00 97.4 111 18 114/76 (89) 96 07/04/18 00:00 97.4 111 18 110/77 (88) 98 07/03/18 21:00 Nasal Cannula 3.0 07/03/18 20:00 97.2 113 18 110/76 (87) 98 07/03/18 19:54 Nasal Cannula 3.0 32 07/03/18 19:54 97 Nasal Cannula 3.0 32 07/03/18 16:00 97.8 114 20 107/74 (85) 98 I&O Intake and Output 07/03/18 07/04/18 19:00 07:00 Intake Total 120 ml Output Total 1000 ml Balance -880 ml Intake Oral 120 ml Output Urine Total 1000 ml Other 0 ml Dressing: other Wound: other Drains: other Cardiovascular: RSR Respiratory: clear Abdomen: soft, non-tender, non-distended Extremities: other Laboratory Tests Test 07/04/18 06:00 White Blood Count 8.1 K/UL (4.8-10.8) Red Blood Count 3.66 M/UL (4.20-5.40) L Hemoglobin 10.9 G/DL (12.0-16.0) L Hematocrit 33.1 % (37.0-47.0) L Mean Corpuscular Volume 90 FL (80-99) Mean Corpuscular Hemoglobin 29.9 PG (27.0-31.0) Mean Corpuscular Hemoglobin Concent 33.1 G/DL (32.0-36.0) Red Cell Distribution Width 16.0 % (11.6-14.8) H Platelet Count 524 K/UL (150-450) H Mean Platelet Volume 4.9 FL (6.5-10.1) L Neutrophils (%) (Auto) 76.5 % (45.0-75.0) H Lymphocytes (%) (Auto) 12.1 % (20.0-45.0) L Monocytes (%) (Auto) 9.0 % (1.0-10.0) Eosinophils (%) (Auto) 1.2 % (0.0-3.0) Basophils (%) (Auto) 1.1 % (0.0-2.0) Sodium Level 135 MMOL/L (136-145) L Potassium Level 4.5 MMOL/L (3.5-5.1) Chloride Level 102 MMOL/L (98-107) Carbon Dioxide Level 28 MMOL/L (21-32) Anion Gap 5 mmol/L (5-15) Blood Urea Nitrogen 22 mg/dL (7-18) H Creatinine 0.5 MG/DL (0.55-1.30) L Estimat Glomerular Filtration Rate mL/min (>60) Glucose Level 145 MG/DL (74-106) H Calcium Level 9.1 MG/DL (8.5-10.1) Plan Problems: (1) Cholecystitis Assessment & Plan: acute cholecystitis ovarian cancer with mets complicated medical and surgical history Cholelithiasis and gallbladder wall thickening. Note that recent hepatobiliary nuclear scan is positive for acute cholecystitis. Given the nodular and irregular appearance of the gallbladder wall, possibly a gallbladder neoplasm should also be considered Unusual enhancement of the biliary ductal hernandez, raising concern for cholangitis. Correlate with clinical history and findings cholecystotomy tube placed - Successful percutaneous cholecystostomy under ultrasound and fluoroscopic guidance. Note that aspiration of the gallbladder yielded approximately 15 mL of darshan pus given above no surgery recommended. cont current care tube care okay to d/c from surgical standpoint tube needs to stay in for 6 weeks then can d/c will follow with recs as results available thank you (2) Abdominal pain Rich Kiran Jul 04, 2018 13:08
--- NOTE | 2018-07-04 14:06 | NUR ---
NURSE NOTES: Called Dr. Beltre regarding clearance d/c. said he is not stone layer today so he cannot give the information about d/c.
--- NOTE | 2018-07-04 14:51 | General Progress Note ---
Assessment/Plan Problem List: (1) Ovarian carcinoma ICD Codes: C56.9 - Malignant neoplasm of unspecified ovary SNOMED: 250868473 Qualifiers: Qualified Codes: C56.9 - Malignant neoplasm of unspecified ovary (2) Respiratory distress ICD Codes: R06.03 - Acute respiratory distress SNOMED: 941377826 (3) Pleural effusion ICD Codes: J90 - Pleural effusion, not elsewhere classified SNOMED: 06238867 (4) Hypoalbuminemia ICD Codes: E88.09 - Other disorders of plasma-protein metabolism, not elsewhere classified SNOMED: 623417719 Status: progressing Assessment/Plan acute cholycystitis s/p drain will dc to snf with drain afebrile persistent abdominal pain dc to any snf w drain in place per dr jacobsen pleural effusion s/p drain s/p rcent ovarian removal and hysterectomy Subjective ROS Limited/Unobtainable: Yes Allergies: Coded Allergies: No Known Allergies (Unverified , 06/17/18) Subjective abdominal pain sob Objective Last 24 Hour Vital Signs Date Time Temp Pulse Resp B/P (MAP) Pulse Ox O2 Delivery O2 Flow Rate FiO2 07/04/18 12:00 97.2 110 18 106/74 (85) 97 07/04/18 09:00 Nasal Cannula 3.0 07/04/18 08:00 97.4 107 19 135/88 (104) 97 07/04/18 07:02 Nasal Cannula 3.0 32 07/04/18 07:02 96 Nasal Cannula 3.0 32 07/04/18 04:00 97.4 111 18 114/76 (89) 96 07/04/18 00:00 97.4 111 18 110/77 (88) 98 07/03/18 21:00 Nasal Cannula 3.0 07/03/18 20:00 97.2 113 18 110/76 (87) 98 07/03/18 19:54 Nasal Cannula 3.0 32 07/03/18 19:54 97 Nasal Cannula 3.0 32 07/03/18 16:00 97.8 114 20 107/74 (85) 98 Intake and Output 07/03/18 07/04/18 19:00 07:00 Intake Total 120 ml Output Total 1000 ml Balance -880 ml Intake Oral 120 ml Output Urine Total 1000 ml Other 0 ml Laboratory Tests 07/04/18 06:00: White Blood Count 8.1, Red Blood Count 3.66L, Hemoglobin 10.9L, Hematocrit 33.1L , Mean Corpuscular Volume 90, Mean Corpuscular Hemoglobin 29.9, Mean Corpuscular Hemoglobin Concent 33.1, Red Cell Distribution Width 16.0H, Platelet Count 524H, Mean Platelet Volume 4.9L, Neutrophils (%) (Auto) 76.5H, Lymphocytes (%) (Auto) 12.1L, Monocytes (%) (Auto) 9.0, Eosinophils (%) (Auto) 1.2, Basophils (%) (Auto) 1.1, Sodium Level 135L, Potassium Level 4.5, Chloride Level 102, Carbon Dioxide Level 28, Anion Gap 5, Blood Urea Nitrogen 22H, Creatinine 0.5L, Estimat Glomerular Filtration Rate , Glucose Level 145H, Calcium Level 9.1 Height (Feet): 5 Height (Inches): 2.00 Weight (Pounds): 126 Cardiovascular: normal rate Respiratory/Chest: lungs clear Abdomen: soft Vane Stephenson MD Jul 04, 2018 14:51
--- NOTE | 2018-07-04 14:59 | Pulmonology Progress Note ---
Assessment/Plan Assessment/Plan Problem List: 1. Shortness of breath 2. Large bilateral pleural effusions -R thoracentesis 800 cc 06/18 -L thoracentesis 900 cc 06/26 -L pleurx 07/02 3. ovarian cancer s/p resection with likely malignant ascites and presumed malignant effusions 4. Protein calorie malnutrition 5. Abdominal pain - acute cholecysitis Plan: -L pleurx placed, drain prn but minimum once weekly -f/u cytology -monitor volumes -pain control -d/c planning per primary Subjective Constitutional: Reports: no symptoms HEENT: Repors: no symptoms Respiratory: Reports: no symptoms Cardiovascular: Reports: no symptoms Allergies: Coded Allergies: No Known Allergies (Unverified , 06/17/18) Subjective awake no distress minimal po not getting oob on o2 no fever Objective Last 24 Hour Vital Signs Date Time Temp Pulse Resp B/P (MAP) Pulse Ox O2 Delivery O2 Flow Rate FiO2 07/04/18 12:00 97.2 110 18 106/74 (85) 97 07/04/18 09:00 Nasal Cannula 3.0 07/04/18 08:00 97.4 107 19 135/88 (104) 97 07/04/18 07:02 Nasal Cannula 3.0 32 07/04/18 07:02 96 Nasal Cannula 3.0 32 07/04/18 04:00 97.4 111 18 114/76 (89) 96 07/04/18 00:00 97.4 111 18 110/77 (88) 98 07/03/18 21:00 Nasal Cannula 3.0 07/03/18 20:00 97.2 113 18 110/76 (87) 98 07/03/18 19:54 Nasal Cannula 3.0 32 07/03/18 19:54 97 Nasal Cannula 3.0 32 07/03/18 16:00 97.8 114 20 107/74 (85) 98 Intake and Output 07/03/18 07/04/18 19:00 07:00 Intake Total 120 ml Output Total 1000 ml Balance -880 ml Intake Oral 120 ml Output Urine Total 1000 ml Other 0 ml General Appearance: cachetic Respiratory/Chest: rhonchi Cardiovascular: normal rate, regular rhythm Abdomen: normal bowel sounds, no organomegaly Skin: no rash, no lesions Neurologic/Psychiatric: alert Lymphatic: no groin adenopathy Laboratory Tests 07/04/18 06:00: White Blood Count 8.1, Red Blood Count 3.66L, Hemoglobin 10.9L, Hematocrit 33.1L , Mean Corpuscular Volume 90, Mean Corpuscular Hemoglobin 29.9, Mean Corpuscular Hemoglobin Concent 33.1, Red Cell Distribution Width 16.0H, Platelet Count 524H, Mean Platelet Volume 4.9L, Neutrophils (%) (Auto) 76.5H, Lymphocytes (%) (Auto) 12.1L, Monocytes (%) (Auto) 9.0, Eosinophils (%) (Auto) 1.2, Basophils (%) (Auto) 1.1, Sodium Level 135L, Potassium Level 4.5, Chloride Level 102, Carbon Dioxide Level 28, Anion Gap 5, Blood Urea Nitrogen 22H, Creatinine 0.5L, Estimat Glomerular Filtration Rate , Glucose Level 145H, Calcium Level 9.1 Current Medications Medications (Trade) Dose Ordered Sig/Susana Route PRN Reason Start Time Stop Time Status Last Admin Dose Admin Acetaminophen (Tylenol) 500 mg Q4H PRN ORAL Mild Pain/Temp > 100.5 06/23/18 11:30 07/17/18 11:29 06/23/18 16:06 Bisacodyl (Dulcolax) 10 mg DAILY ORAL 06/24/18 09:00 07/20/18 08:59 07/04/18 08:33 Docusate Sodium (Colace) 100 mg TWICE A DAY ORAL 06/23/18 18:00 07/19/18 18:59 07/04/18 08:33 Furosemide (Lasix) 20 mg DAILY IV 06/26/18 09:00 07/18/18 08:59 07/04/18 08:34 Heparin Sodium (Porcine) (Heparin 5000 units/ml) 5,000 units EVERY 12 HOURS SUBQ 06/23/18 21:00 07/21/18 08:59 07/04/18 08:35 Magnesium Hydroxide (Mom) 30 ml Q4H PRN ORAL Constipation 06/23/18 14:30 07/19/18 18:29 Morphine Sulfate (Morphine Sulfate) 2 mg Q4H PRN IVP moderate pain 06/29/18 08:00 07/06/18 07:59 07/01/18 16:24 Morphine Sulfate (Morphine Sulfate) 4 mg Q4H PRN IVP severe pain 06/29/18 08:00 07/06/18 07:59 07/04/18 03:49 Pantoprazole (Protonix) 40 mg DAILY ORAL 06/24/18 09:00 07/18/18 08:59 07/04/18 08:33 Potassium Chloride (K-Dur) 40 meq TWICE A DAY ORAL 06/23/18 18:00 07/18/18 17:59 07/04/18 08:33 Zolpidem Tartrate (Ambien) 5 mg HSPRN PRN ORAL Insomnia 06/28/18 20:45 07/05/18 20:44 07/01/18 21:25 Mackenzie Thibodeaux DO Jul 04, 2018 14:58
--- NOTE | 2018-07-04 15:08 | Nephrology Progress Note ---
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 monitor labs low dose lasix k supplement Subjective ROS Limited/Unobtainable: No Constitutional: Reports: malaise, weakness Objective Objective Last 24 Hour Vital Signs Date Time Temp Pulse Resp B/P (MAP) Pulse Ox O2 Delivery O2 Flow Rate FiO2 07/04/18 12:00 97.2 110 18 106/74 (85) 97 07/04/18 09:00 Nasal Cannula 3.0 07/04/18 08:00 97.4 107 19 135/88 (104) 97 07/04/18 07:02 Nasal Cannula 3.0 32 07/04/18 07:02 96 Nasal Cannula 3.0 32 07/04/18 04:00 97.4 111 18 114/76 (89) 96 07/04/18 00:00 97.4 111 18 110/77 (88) 98 07/03/18 21:00 Nasal Cannula 3.0 07/03/18 20:00 97.2 113 18 110/76 (87) 98 07/03/18 19:54 Nasal Cannula 3.0 32 07/03/18 19:54 97 Nasal Cannula 3.0 32 07/03/18 16:00 97.8 114 20 107/74 (85) 98 Intake and Output 07/03/18 07/04/18 19:00 07:00 Intake Total 120 ml Output Total 1000 ml Balance -880 ml Intake Oral 120 ml Output Urine Total 1000 ml Other 0 ml Laboratory Tests 07/04/18 06:00: White Blood Count 8.1, Red Blood Count 3.66L, Hemoglobin 10.9L, Hematocrit 33.1L , Mean Corpuscular Volume 90, Mean Corpuscular Hemoglobin 29.9, Mean Corpuscular Hemoglobin Concent 33.1, Red Cell Distribution Width 16.0H, Platelet Count 524H, Mean Platelet Volume 4.9L, Neutrophils (%) (Auto) 76.5H, Lymphocytes (%) (Auto) 12.1L, Monocytes (%) (Auto) 9.0, Eosinophils (%) (Auto) 1.2, Basophils (%) (Auto) 1.1, Sodium Level 135L, Potassium Level 4.5, Chloride Level 102, Carbon Dioxide Level 28, Anion Gap 5, Blood Urea Nitrogen 22H, Creatinine 0.5L, Estimat Glomerular Filtration Rate , Glucose Level 145H, Calcium Level 9.1 Height (Feet): 5 Height (Inches): 2.00 Weight (Pounds): 126 General Appearance: no apparent distress Cardiovascular: tachycardia Respiratory/Chest: decreased breath sounds Abdomen: distended Objective no change Jae Walker MD Jul 04, 2018 15:08
--- NOTE | 2018-07-04 15:17 | NUR ---
NURSE NOTES: Called Dr. Patel and left the message. Waiting call MD back.
--- NOTE | 2018-07-04 15:17 | NUR ---
NURSE NOTES: Called Dr. Stephenson and left the message regarding Dr. Patel did not call back.
--- NOTE | 2018-07-04 15:21 | NUR ---
NURSE NOTES: Dr. Stephenson called and ordered endorse to night nurse regarding d/c. Do not discharge this patient without Dr. Patel cleared. Noted and carried out.
[2018-07-04 16:00] VITALS: BP 112/76
--- NOTE | 2018-07-04 17:04 | Cardiology Progress Note ---
Assessment/Plan Assessment/Plan 1. Sinus tachycardia, likely due to sepsis, low intravascular volume depletion due to low oncotic pressure, or tumor burden. 2. B/L pleural effusion, s/p thoracentesis 3. Metastatic ovarian cancer 4. FTT 5. Respiratory failure. 6. Encephalopathy 7. Moderate pulmonary HTN. 8. Sepsis, s/p cholecystostomy. Subjective Subjective No chest pain or SOB is reported. Objective Last 24 Hour Vital Signs Date Time Temp Pulse Resp B/P (MAP) Pulse Ox O2 Delivery O2 Flow Rate FiO2 07/04/18 16:00 98.2 110 18 112/76 (88) 97 07/04/18 12:00 97.2 110 18 106/74 (85) 97 07/04/18 09:00 Nasal Cannula 3.0 07/04/18 08:00 97.4 107 19 135/88 (104) 97 07/04/18 07:02 Nasal Cannula 3.0 32 07/04/18 07:02 96 Nasal Cannula 3.0 32 07/04/18 04:00 97.4 111 18 114/76 (89) 96 07/04/18 00:00 97.4 111 18 110/77 (88) 98 07/03/18 21:00 Nasal Cannula 3.0 07/03/18 20:00 97.2 113 18 110/76 (87) 98 07/03/18 19:54 Nasal Cannula 3.0 32 07/03/18 19:54 97 Nasal Cannula 3.0 32 Intake and Output 07/03/18 07/04/18 19:00 07:00 Intake Total 120 ml Output Total 1000 ml Balance -880 ml Intake Oral 120 ml Output Urine Total 1000 ml Other 0 ml 2D Echo: LVEF 65%, Grade I LVDD, pleural effusion, RVSP 48 mmHg Laboratory Tests Test 07/04/18 06:00 White Blood Count 8.1 K/UL (4.8-10.8) Red Blood Count 3.66 M/UL (4.20-5.40) L Hemoglobin 10.9 G/DL (12.0-16.0) L Hematocrit 33.1 % (37.0-47.0) L Mean Corpuscular Volume 90 FL (80-99) Mean Corpuscular Hemoglobin 29.9 PG (27.0-31.0) Mean Corpuscular Hemoglobin Concent 33.1 G/DL (32.0-36.0) Red Cell Distribution Width 16.0 % (11.6-14.8) H Platelet Count 524 K/UL (150-450) H Mean Platelet Volume 4.9 FL (6.5-10.1) L Neutrophils (%) (Auto) 76.5 % (45.0-75.0) H Lymphocytes (%) (Auto) 12.1 % (20.0-45.0) L Monocytes (%) (Auto) 9.0 % (1.0-10.0) Eosinophils (%) (Auto) 1.2 % (0.0-3.0) Basophils (%) (Auto) 1.1 % (0.0-2.0) Sodium Level 135 MMOL/L (136-145) L Potassium Level 4.5 MMOL/L (3.5-5.1) Chloride Level 102 MMOL/L (98-107) Carbon Dioxide Level 28 MMOL/L (21-32) Anion Gap 5 mmol/L (5-15) Blood Urea Nitrogen 22 mg/dL (7-18) H Creatinine 0.5 MG/DL (0.55-1.30) L Estimat Glomerular Filtration Rate mL/min (>60) Glucose Level 145 MG/DL (74-106) H Calcium Level 9.1 MG/DL (8.5-10.1) Objective HEENT: Atraumatic and normocephalic. Anicteric. Pupils are equal, round, and reactive to light and accommodation. Extraocular muscles intact. NECK: JVP less than 5 cm. No carotid bruit. Carotid upstrokes 2+ bilaterally. CARDIOVASCULAR: Normal S1, S2. Regular rate and rhythm. Tachycardic. No murmurs, gallops, or rubs. LUNGS: Diminished breath sounds in both bases. ABDOMEN: Soft, nontender, and nondistended. No hepatosplenomegaly. Positive bowel sounds. An abdominal incision site is clean. EXTREMITIES: No evidence of edema, clubbing, or cyanosis. Andrew Man MD Jul 04, 2018 17:04
--- NOTE | 2018-07-04 17:22 | NUR ---
CASE MANAGEMENT: REVIEW SI: RESP DISTRESS T 97.2 HR 110 RR 18 BP 106/74 SAT 97% NC/3L H/H 10.9/33.1 IS: LASIX IV QD HEPARIN SQ Q12HR K-DUR PO BID MED/SURG STATUS DCP: PATIENT IS FROM HOME
--- NOTE | 2018-07-04 19:32 | NUR ---
HAND-OFF: Report given to Mandi Garcia RN. Patient in stable condition.
--- NOTE | 2018-07-04 19:47 | NUR ---
NURSE NOTES: Pt received awake, alert, kiswahili speaking and asking for a sleeping pill. call light within reach, no signs of distress, will continue to monitor.
[2018-07-04 20:00] VITALS: BP 130/87
--- NOTE | 2018-07-04 20:15 | NUR ---
NURSE NOTES: Pt tray removed from her room and she did not eat any of her food. When giving her the medication she was able to drink some water but would not except any food.
[2018-07-04] MEDS: Zolpidem 5mg tab ORAL PRN (20:43)
--- NOTE | 2018-07-04 23:43 | Cardiology Progress Note ---
Assessment/Plan Assessment/Plan 1. Sinus tachycardia, likely due to sepsis, low intravascular volume depletion due to low oncotic pressure, or tumor burden. 2. B/L pleural effusion, s/p thoracentesis 3. Metastatic ovarian cancer 4. FTT 5. Respiratory failure. 6. Encephalopathy 7. Moderate pulmonary HTN. 8. Sepsis, s/p cholecystostomy. Subjective Subjective No chest pain or SOB is reported. Objective Last 24 Hour Vital Signs Date Time Temp Pulse Resp B/P (MAP) Pulse Ox O2 Delivery O2 Flow Rate FiO2 07/04/18 21:00 Nasal Cannula 3.0 07/04/18 20:00 97.3 96 20 130/87 (101) 98 07/04/18 16:00 98.2 110 18 112/76 (88) 97 07/04/18 12:00 97.2 110 18 106/74 (85) 97 07/04/18 09:00 Nasal Cannula 3.0 07/04/18 08:00 97.4 107 19 135/88 (104) 97 07/04/18 07:02 Nasal Cannula 3.0 32 07/04/18 07:02 96 Nasal Cannula 3.0 32 07/04/18 04:00 97.4 111 18 114/76 (89) 96 07/04/18 00:00 97.4 111 18 110/77 (88) 98 Intake and Output 07/03/18 07/04/18 19:00 07:00 Intake Total 120 ml Output Total 1000 ml Balance -880 ml Intake Oral 120 ml Output Urine Total 1000 ml Other 0 ml Laboratory Tests Test 07/04/18 06:00 White Blood Count 8.1 K/UL (4.8-10.8) Red Blood Count 3.66 M/UL (4.20-5.40) L Hemoglobin 10.9 G/DL (12.0-16.0) L Hematocrit 33.1 % (37.0-47.0) L Mean Corpuscular Volume 90 FL (80-99) Mean Corpuscular Hemoglobin 29.9 PG (27.0-31.0) Mean Corpuscular Hemoglobin Concent 33.1 G/DL (32.0-36.0) Red Cell Distribution Width 16.0 % (11.6-14.8) H Platelet Count 524 K/UL (150-450) H Mean Platelet Volume 4.9 FL (6.5-10.1) L Neutrophils (%) (Auto) 76.5 % (45.0-75.0) H Lymphocytes (%) (Auto) 12.1 % (20.0-45.0) L Monocytes (%) (Auto) 9.0 % (1.0-10.0) Eosinophils (%) (Auto) 1.2 % (0.0-3.0) Basophils (%) (Auto) 1.1 % (0.0-2.0) Sodium Level 135 MMOL/L (136-145) L Potassium Level 4.5 MMOL/L (3.5-5.1) Chloride Level 102 MMOL/L (98-107) Carbon Dioxide Level 28 MMOL/L (21-32) Anion Gap 5 mmol/L (5-15) Blood Urea Nitrogen 22 mg/dL (7-18) H Creatinine 0.5 MG/DL (0.55-1.30) L Estimat Glomerular Filtration Rate mL/min (>60) Glucose Level 145 MG/DL (74-106) H Calcium Level 9.1 MG/DL (8.5-10.1) Objective HEENT: Atraumatic and normocephalic. Anicteric. Pupils are equal, round, and reactive to light and accommodation. Extraocular muscles intact. NECK: JVP less than 5 cm. No carotid bruit. Carotid upstrokes 2+ bilaterally. CARDIOVASCULAR: Normal S1, S2. Regular rate and rhythm. Tachycardic. No murmurs, gallops, or rubs. LUNGS: Diminished breath sounds in both bases. ABDOMEN: Soft, nontender, and nondistended. No hepatosplenomegaly. Positive bowel sounds. An abdominal incision site is clean. EXTREMITIES: No evidence of edema, clubbing, or cyanosis. Andrew Man MD Jul 04, 2018 23:43
[2018-07-05] VITALS: BP 116/81
[2018-07-05 04:00] VITALS: BP 113/79
--- NOTE | 2018-07-05 07:25 | NUR ---
HAND-OFF: Report given to KOFI John.
--- NOTE | 2018-07-05 07:26 | NUR ---
NURSE NOTES: Received patient awake alert and oriented, sitting up comfortably in bed. IV site at left antecubital, 20 gauge, saline lock. Bed at lowest level with 3 side rails up. Call light within reach. In no apparent distress at this time. Will continue to monitor.
[2018-07-05 08:20] VITALS: BP 129/85
[2018-07-05] MEDS: Heparin 5000 units/ml inj SUBQ SCH (08:35)
[2018-07-05] MEDS: Bisacodyl EC 5mg tab ORAL SCH (08:35)
[2018-07-05] MEDS: Docusate 100mg cap ORAL SCH ×2 (08:35→18:00)
--- NOTE | 2018-07-05 11:52 | General Progress Note ---
Assessment/Plan Assessment/Plan (1) Intractable pain (2) Ovarian cancer Patient to be continued on Morphine. Dr. Breaux and he concurred. Subjective Date patient seen: Jul 05, 2018 Time patient seen: 10:45 - am Allergies: Coded Allergies: No Known Allergies (Unverified , 06/17/18) Subjective Constitutional: Reports: weakness HEENT: Reports: no symptoms Gastrointestinal/Abdominal: Reports: abdominal pain Genitourinary: Reports: no symptoms Neurologic/Psychiatric: Reports: weakness Endocrine: Reports: no symptoms Hematologic/Lymphatic: Reports: no symptoms Subjective Patient is in bed showing no signs of pain or distress. Has received 2 doses of morphine in the last 24hrs. Objective Last 24 Hour Vital Signs Date Time Temp Pulse Resp B/P (MAP) Pulse Ox O2 Delivery O2 Flow Rate FiO2 07/05/18 09:00 Nasal Cannula 3.0 07/05/18 08:20 97.9 107 19 129/85 (100) 97 07/05/18 04:00 97.2 94 20 113/79 (90) 98 07/05/18 03:35 99 Nasal Cannula 3.0 32 07/05/18 03:35 Nasal Cannula 3.0 32 07/05/18 00:00 97.8 102 20 116/81 (93) 98 07/04/18 21:00 Nasal Cannula 3.0 07/04/18 20:00 97.3 96 20 130/87 (101) 98 07/04/18 16:00 98.2 110 18 112/76 (88) 97 07/04/18 12:00 97.2 110 18 106/74 (85) 97 Intake and Output 07/04/18 07/05/18 18:59 06:59 Intake Total 200 ml Output Total 920 ml 500 ml Balance -720 ml -500 ml Intake Oral 200 ml Output Urine Total 900 ml 500 ml Other 20 ml # Bowel Movements 1 1 Height (Feet): 5 Height (Inches): 2.00 Weight (Pounds): 126 Objective General Appearance: no apparent distress, alert Cardiovascular: normal rate, regular rhythm Respiratory/Chest: decreased breath sounds, drainage tube noted Abdomen: tender Extremities: non-tender Neurologic: alert, responsive Skin: normal pigmentation Tenzin Foster Jul 05, 2018 11:52
--- NOTE | 2018-07-05 11:56 | Infectious Diseases Prog Note ---
Assessment/Plan Assessment/Plan A 1. Enterococcal , candidal UTI 2. Acute cholecystitis , Cholangitis 3. pleural effusion s/p thoracentesis 4. leucocytosis resolved 5. ovarian cancer 6. s/p IR guided cholecystotomy tube placement P 1. observe off antibiotic Subjective ROS Limited/Unobtainable: Yes Constitutional: Reports: anorexia Respiratory: Reports: no symptoms Gastrointestinal/Abdominal: Reports: no symptoms Musculoskeletal: Reports: no symptoms Allergies: Coded Allergies: No Known Allergies (Unverified , 06/17/18) Objective Vital Signs Last 24 Hour Vital Signs Date Time Temp Pulse Resp B/P (MAP) Pulse Ox O2 Delivery O2 Flow Rate FiO2 07/05/18 09:00 Nasal Cannula 3.0 07/05/18 08:20 97.9 107 19 129/85 (100) 97 07/05/18 04:00 97.2 94 20 113/79 (90) 98 07/05/18 03:35 99 Nasal Cannula 3.0 32 07/05/18 03:35 Nasal Cannula 3.0 32 07/05/18 00:00 97.8 102 20 116/81 (93) 98 07/04/18 21:00 Nasal Cannula 3.0 07/04/18 20:00 97.3 96 20 130/87 (101) 98 07/04/18 16:00 98.2 110 18 112/76 (88) 97 07/04/18 12:00 97.2 110 18 106/74 (85) 97 Height (Feet): 5 Height (Inches): 2.00 Weight (Pounds): 126 General Appearance: no acute distress HEENT: mucous membranes moist Respiratory/Chest: lungs clear, other - left pleural drain Cardiovascular: tachycardia Abdomen: soft, non tender, other - cholecystostomy drain Extremities: no edema Neurologic/Psychiatric: alert, oriented x 3, responsive Current Medications Medications (Trade) Dose Ordered Sig/Susana Route PRN Reason Start Time Stop Time Status Last Admin Dose Admin Acetaminophen (Tylenol) 500 mg Q4H PRN ORAL Mild Pain/Temp > 100.5 06/23/18 11:30 07/17/18 11:29 06/23/18 16:06 Bisacodyl (Dulcolax) 10 mg DAILY ORAL 06/24/18 09:00 07/20/18 08:59 07/05/18 08:35 Docusate Sodium (Colace) 100 mg TWICE A DAY ORAL 06/23/18 18:00 07/19/18 18:59 07/05/18 08:35 Furosemide (Lasix) 20 mg DAILY IV 06/26/18 09:00 07/18/18 08:59 07/05/18 08:34 Heparin Sodium (Porcine) (Heparin 5000 units/ml) 5,000 units EVERY 12 HOURS SUBQ 06/23/18 21:00 07/21/18 08:59 07/05/18 08:35 Magnesium Hydroxide (Mom) 30 ml Q4H PRN ORAL Constipation 06/23/18 14:30 07/19/18 18:29 Morphine Sulfate (Morphine Sulfate) 2 mg Q4H PRN IVP moderate pain 06/29/18 08:00 07/06/18 07:59 07/01/18 16:24 Morphine Sulfate (Morphine Sulfate) 4 mg Q4H PRN IVP severe pain 06/29/18 08:00 07/06/18 07:59 07/04/18 23:55 Pantoprazole (Protonix) 40 mg DAILY ORAL 06/24/18 09:00 07/18/18 08:59 07/05/18 08:35 Potassium Chloride (K-Dur) 40 meq TWICE A DAY ORAL 06/23/18 18:00 07/18/18 17:59 07/05/18 08:35 Zolpidem Tartrate (Ambien) 5 mg HSPRN PRN ORAL Insomnia 06/28/18 20:45 07/05/18 20:44 07/04/18 20:43 Eugenio Goss MD Jul 05, 2018 11:56
[2018-07-05 12:00] VITALS: BP 104/71
--- NOTE | 2018-07-05 12:49 | General Progress Note ---
Assessment/Plan Problem List: (1) Ovarian carcinoma ICD Codes: C56.9 - Malignant neoplasm of unspecified ovary SNOMED: 389604241 Qualifiers: Qualified Codes: C56.9 - Malignant neoplasm of unspecified ovary (2) Respiratory distress ICD Codes: R06.03 - Acute respiratory distress SNOMED: 522662847 (3) Pleural effusion ICD Codes: J90 - Pleural effusion, not elsewhere classified SNOMED: 36646009 (4) Hypoalbuminemia ICD Codes: E88.09 - Other disorders of plasma-protein metabolism, not elsewhere classified SNOMED: 478574818 Status: progressing Assessment/Plan acute cholycystitis s/p drain afebrile needs snf placment reviewed chart and labs pleural effusion s/p drain s/p rcent ovarian removal and hysterectomy Subjective Gastrointestinal/Abdominal: Reports: abdominal pain Allergies: Coded Allergies: No Known Allergies (Unverified , 06/17/18) Subjective abdominal pain sob Objective Last 24 Hour Vital Signs Date Time Temp Pulse Resp B/P (MAP) Pulse Ox O2 Delivery O2 Flow Rate FiO2 07/05/18 12:00 97.3 98 18 104/71 (82) 98 07/05/18 09:00 Nasal Cannula 3.0 07/05/18 08:20 97.9 107 19 129/85 (100) 97 07/05/18 04:00 97.2 94 20 113/79 (90) 98 07/05/18 03:35 99 Nasal Cannula 3.0 32 07/05/18 03:35 Nasal Cannula 3.0 32 07/05/18 00:00 97.8 102 20 116/81 (93) 98 07/04/18 21:00 Nasal Cannula 3.0 07/04/18 20:00 97.3 96 20 130/87 (101) 98 07/04/18 16:00 98.2 110 18 112/76 (88) 97 Intake and Output 07/04/18 07/05/18 18:59 06:59 Intake Total 200 ml Output Total 920 ml 500 ml Balance -720 ml -500 ml Intake Oral 200 ml Output Urine Total 900 ml 500 ml Other 20 ml # Bowel Movements 1 1 Height (Feet): 5 Height (Inches): 2.00 Weight (Pounds): 126 Neck: supple Cardiovascular: normal rate Respiratory/Chest: lungs clear Vane Stephenson MD Jul 05, 2018 12:49
--- NOTE | 2018-07-05 12:57 | NUR ---
NURSE NOTES: left phone message on Dr. Patel's vm regarding release for discharge.
--- NOTE | 2018-07-05 13:56 | Surgery Progress Note ---
Surgery Progress Note Subjective Symptoms: improved Objective Last 24 Hour Vital Signs Date Time Temp Pulse Resp B/P (MAP) Pulse Ox O2 Delivery O2 Flow Rate FiO2 07/05/18 12:00 97.3 98 18 104/71 (82) 98 07/05/18 09:00 Nasal Cannula 3.0 07/05/18 08:20 97.9 107 19 129/85 (100) 97 07/05/18 04:00 97.2 94 20 113/79 (90) 98 07/05/18 03:35 99 Nasal Cannula 3.0 32 07/05/18 03:35 Nasal Cannula 3.0 32 07/05/18 00:00 97.8 102 20 116/81 (93) 98 07/04/18 21:00 Nasal Cannula 3.0 07/04/18 20:00 97.3 96 20 130/87 (101) 98 07/04/18 16:00 98.2 110 18 112/76 (88) 97 I&O Intake and Output 07/04/18 07/05/18 18:59 06:59 Intake Total 200 ml Output Total 920 ml 500 ml Balance -720 ml -500 ml Intake Oral 200 ml Output Urine Total 900 ml 500 ml Other 20 ml # Bowel Movements 1 1 Dressing: other Wound: other Drains: other Cardiovascular: RSR Respiratory: clear Abdomen: present bowel sounds, non-distended Extremities: other Plan Problems: (1) Cholecystitis Assessment & Plan: acute cholecystitis ovarian cancer with mets complicated medical and surgical history Cholelithiasis and gallbladder wall thickening. Note that recent hepatobiliary nuclear scan is positive for acute cholecystitis. Given the nodular and irregular appearance of the gallbladder wall, possibly a gallbladder neoplasm should also be considered Unusual enhancement of the biliary ductal hernandez, raising concern for cholangitis. Correlate with clinical history and findings cholecystotomy tube placed - Successful percutaneous cholecystostomy under ultrasound and fluoroscopic guidance. Note that aspiration of the gallbladder yielded approximately 15 mL of darshan pus given above no surgery recommended. cont current care tube care okay to d/c from surgical standpoint tube needs to stay in for 6 weeks then can d/c will follow with recs as results available thank you (2) Abdominal pain Rich Kiran Jul 05, 2018 13:56
--- NOTE | 2018-07-05 14:50 | NUR ---
NURSE NOTES: Report given to KOFI Crawford at [facility]. Addendum: 07/05/18 at 1518 by FÉLIX DÍAZ RN catheter drainage and schedule explained to nurse.
--- NOTE | 2018-07-05 15:59 | NUR ---
NURSE NOTES: Pleurx drainage instructions sent with patient's packet.
[2018-07-05 16:00] VITALS: BP 121/84
[2018-07-05] MEDS: Morphine Sulfate 2mg/ml Inj(IV/IM USE ONLY) IVP PRN (16:55)
--- NOTE | 2018-07-05 17:16 | NUR ---
CASE MANAGEMENT: REVIEW SI: RESP DISTRESS T 97.3 HR 107 RR 19 BP 104/71 SAT 99% NC/3L H/H 10.9/33.1 NA 135 IS: LASIX IV QD HEPARIN SQ Q12HR K-DUR PO BID MED/SURG STATUS DCP: PATIENT IS FROM HOME
--- NOTE | 2018-07-05 17:38 | Nephrology Progress Note ---
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 monitor labs low dose lasix k supplement Subjective ROS Limited/Unobtainable: No Constitutional: Reports: malaise, weakness Objective Objective Last 24 Hour Vital Signs Date Time Temp Pulse Resp B/P (MAP) Pulse Ox O2 Delivery O2 Flow Rate FiO2 07/05/18 16:00 97.0 94 17 121/84 (96) 97 07/05/18 12:00 97.3 98 18 104/71 (82) 98 07/05/18 09:00 Nasal Cannula 3.0 07/05/18 08:20 97.9 107 19 129/85 (100) 97 07/05/18 04:00 97.2 94 20 113/79 (90) 98 07/05/18 03:35 99 Nasal Cannula 3.0 32 07/05/18 03:35 Nasal Cannula 3.0 32 07/05/18 00:00 97.8 102 20 116/81 (93) 98 07/04/18 21:00 Nasal Cannula 3.0 07/04/18 20:00 97.3 96 20 130/87 (101) 98 Intake and Output 07/04/18 07/05/18 19:00 07:00 Intake Total 200 ml Output Total 920 ml 500 ml Balance -720 ml -500 ml Intake Oral 200 ml Output Urine Total 900 ml 500 ml Other 20 ml # Bowel Movements 1 1 Height (Feet): 5 Height (Inches): 2.00 Weight (Pounds): 126 Cardiovascular: tachycardia Respiratory/Chest: decreased breath sounds Abdomen: distended Objective no change Jae Walker MD Jul 05, 2018 17:38
--- NOTE | 2018-07-05 18:30 | NUR ---
NURSE NOTES: Patient discharged. IV and ID band removed. Belongings accounted for. Escorted from facility by [facility] without incident or injury.
--- NOTE | 2018-07-05 22:03 | General Progress Note ---
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 and presumed malignant effusions --> review outside imaging and treatments patient has received --> outside labs and pathology to be reviewed --> defer to outpatient oncologist for further care, patient requires followup, has followup with [facility] --> recent surgery 05/2018, was date of initial dx # Thrombocytosis - likely related to reactive process, ovarian cancer potential hx of mets --> Continue to monitor for improvement --> plt trend: 860-->863-->917-->937-->524 --> Trend CBC as needed --> Jak2 has been ordered --> Smear reviewed and no abnormalities noted. *Under manual differential # Anemia of chronic disease (or of iron deficiency) due to underlying chronic medical issues, multifactorial --> Anemia workup has been reviewed, --> No evidence of hemolysis is noted, peripheral smear has been reviewed. --> Hgb goal >7. Transfuse prn. --> Epogen or iron at this time is not particularly indicated --> Medications have been reviewed # Leukocytosis. Likely related to underlying infection versus reactive process. --> Peripheral has been ordered, no blasts are noted --> Medications have been reviewed --> Imaging has been reviewed --> Blood cultures and urine cultures prn --> has been started on abx, empiric treatment # Shortness of breath # Large bilateral pleural effusions --> thoracentesis eval with pleural fluid studies --> 06/18: Successful ultrasound-guided right thoracentesis, yielding 0.8 liters of fluid The timing of this note does not necessarily reflect the time of the patient was seen. Greatly appreciate consultation! Subjective Constitutional: Denies: no symptoms, chills, diaphoresis, fever, malaise, weakness, other HEENT: Denies: no symptoms, eye pain, blurred vision, tearing, double vision, ear pain, ear discharge, nose pain, nose congestion, throat pain, throat swelling, mouth pain, mouth swelling, other Cardiovascular: Denies: no symptoms, chest pain, edema, irregular heart rate, lightheadedness, palpitations, syncope, other Respiratory: Denies: no symptoms, cough, orthopnea, shortness of breath, SOB with excertion, SOB at rest, sputum, stridor, wheezing, other Gastrointestinal/Abdominal: Denies: no symptoms, abdomen distended, abdominal pain, black stools, tarry stools, blood in stool, constipated, diarrhea, difficulty swallowing, nausea, poor appetite, poor fluid intake, rectal bleeding , vomiting, other Allergies: Coded Allergies: No Known Allergies (Unverified , 06/17/18) Subjective 06/18: thoracentesis eval with pleural fluid studies today, plt remains elevated. 06/19: seen by bedside, no acute distress, no signs of pain. No pneumothorax is reported on CXR 06/22: Patient is is resting in bed with family at bed side. Patient has pain which is at a moderate level and tolerated on the Morphine. HIDA scan reveals, suspicious for acute cholecystitis. plt continue to be elevated and trending up. 06/23: seen by bedside, awake, comfortable, no acute distress, no events 06/24: HIDA reviewed >> suggestive of acute cholecystitis, no plans for GI procedures at this time, patient will need follow up imaging for her cirrhosis and ascites, continues to have abdominal pain 06/25: awake, comfortable, no acute distress. 06/26: No acute events, s/p cholecystostomy tube placement. 06/28: s/p cholecystostomy tube, CT and MRCP reviewed, no plans for ERCP given no dilated duct and poor prognosis 06/29: seen by bedside, complains of abdominal pain . 06/30: seen by bedside, awake comfortable, no acute events. plt trending down 07/01: Pt is awake and comfortable, no acute distress. 07/02: plt remans elevated at 519, pleural effusions/p rcent ovarian removal and hysterectomy, pt is getting drain today by ir for pleural effusion 07/03: awake, comfortable, no acute distress. 07/05: seen by bedside, awake, comfortable, no events Objective Last 24 Hour Vital Signs Date Time Temp Pulse Resp B/P (MAP) Pulse Ox O2 Delivery O2 Flow Rate FiO2 07/05/18 17:25 97.0 07/05/18 16:00 97.0 94 17 121/84 (96) 97 07/05/18 12:00 97.3 98 18 104/71 (82) 98 07/05/18 09:00 Nasal Cannula 3.0 07/05/18 08:20 97.9 107 19 129/85 (100) 97 2/24/19 04:00 97.2 94 20 113/79 (90) 98 07/05/18 03:35 99 Nasal Cannula 3.0 32 07/05/18 03:35 Nasal Cannula 3.0 32 07/05/18 00:00 97.8 102 20 116/81 (93) 98 Intake and Output 07/04/18 07/05/18 19:00 07:00 Intake Total 200 ml Output Total 920 ml 500 ml Balance -720 ml -500 ml Intake Oral 200 ml Output Urine Total 900 ml 500 ml Other 20 ml # Bowel Movements 1 1 Height (Feet): 5 Height (Inches): 2.00 Weight (Pounds): 126 Objective Physical Exam General Appearance: no apparent distress, alert HEENT: normocephalic, atraumatic Neck: supple Respiratory/Chest: decreased breath sounds Cardiovascular/Chest: normal rate, regular rhythm Abdomen: non tender, soft Extremities: no edema Keegan Flores MD Jul 05, 2018 22:02
--- NOTE | 2018-07-06 11:38 | Discharge Summary ---
Discharge Summary Discharge Summary _ DATE OF ADMISSION: 06/17/2018 DATE OF DISCHARGE: 07/05/2018 DISCHARGED BY: Dr Stephenson REASON FOR ADMISSION: 72 years old female with recent history of ovarian cancer with metastatic spread had surgery done on June 26 at [facility] and currently under on chemotherapy. Patient also had bilateral pleural effusion, requiring thoracentesis, on last admission . Patient presented with chief complaint of shortness of breath. Shortness of breath chronic, but worsened within the last few days. Per paramedics patient was hypoxemic and required supplemental oxygen. Shortness of breath improved with supplemental oxygen. Shortness of breath worse when patient lying down. She denied fever, chills. Patient reported chronic cough. Upon evaluation patient was tachycardic, tachypneic, and on 4 L nasal cannula saturated 97%. Laboratory workup revealed leukocytosis with WBC 12.4, mild anemia with hemoglobin 11.1, hematocrit 33.8, platelet count 860. Sodium 131. BUN 14, creatinine 0.4. Glucose 125. Total bili 1.8, direct bili 0.8. AST 103, ALT 53, alkaline phosphatase 1268. Troponin - 0.006. Pro BNP 194. EKG revealed sinus tachycardia, no acute ischemic changes. Chest x-ray revealed moderate to large bilateral pleural effusion and pulmonary edema. CT angiogram of the chest revealed no evidence of pulmonary emboli, aortic dissection or aneurysm. Moderate to large bilateral pleural effusion with associated atelectasis bilaterally. Superimposed pneumonia was not excluded. Ascites. Cholelithiasis with wall thickening. Cholecystitis not included excluded. Anasarca. Patient was admitted for respiratory distress and moderate to large pleural effusion for further management. CONSULTANTS: lead generation representative Dr. Man pulmonary ID specialist Dr. Hassan GI specialist Dr. Miller bus van driver Dr. Walker biogeographer/oncologist Dr. Flores surgery Dr. Kiran pain specialist Dr. Breaux [facility] COURSE: Supplemental oxygen provided to keep pulse oximetry above 92%. Pulmonary toilet provided. Patient undergone 2 therapeutic thoracentesis right and left by interventional radiology , yielding 0.8 L from the right and 1 L from the left. Cytology of pleural fluid no evidence of malignant cells. Supervisor Chemical closely followed . Patient was followed -up with chest x-ray . Due to recurrent bilateral pleural effusion requiring repeated thoracentesis , patient undergone placement of chronic pleural drainage catheter by interventional radiology. Supervisor Chemical recommended to drain left pleural catheter as needed, but at least once a week. Pain management was addressed as per pain specialist recommendations. GI specialist followed due to ascites and anasarca and elevated liver enzymes. Abdominal ultrasound revealed cholelithiasis with wall thickening. Complex loculated ascites throughout the abdomen and bilateral pleural effusion. HIDA scan subsequently was done and revealed nonvisualization of the gallbladder , suspicious for acute cholecystitis. MRCP revealed cholelithiasis, gallbladder wall edema, better appreciated on the earlier studies No biliary ductal dilatation or intraductal filling defects. Previous CT described common bile duct wall enhancement suggestive of cholangitis. Current noncontrast study did not add any specificity to that diagnosis Ascites fluid, likely loculated, previously described Bilateral pleural effusions with compressive atelectatic changes of both lower lobes. CT of the abdomen and pelvis, as ordered by surgeon , demonstrated small amount of ascites. Cholelithiasis and gallbladder wall thickening. Unusual enhancement of the biliary ductal heranndez , raising concern for cholangitis. Mildly prominent left upper quadrant small bowel loops. Large bilateral pleural effusion with bilateral lower lobe compressive atelectasis. Patient subsequently undergone placement by interventional radiology cholecystostomy tube. Aspiration of the gallbladder yielded approximately 15 mL of darshan pus. Culture revealed many WBC, but no growth of microorganisms. Surgeon recommended continue conservative management and tube care. Tube need to stay in for 6 weeks and then can be discontinued. Per GI, ascites assumed to be malignant , as apparently was diagnosed as such in [facility]. No follow-up plan for ERCP , given no dilated ducts and poor prognosis. LFT were clsoely monitored, and remained elevated. ID consult was requested due to leukocytosis . Initially patient was observed off antibiotics , presuming that leukocytosis was reactive. Urine culture revealed Enterobacter, Delilah and mixed gram-positive organisms. Patient started on antibiotics for urinary tract infection and acute cholecystitis, cholangitis. Leukocytosis resolved. Patient completed antibiotic treatment and recommended to be observed off antibiotic. Digital Forensics Examiner followed . Per bus van driver, hyponatremia was likely due to edematous state. [place] catheter was placed. urine studies were completed. Renal parameters and electrolytes were closely monitored. Electrolytes corrected as needed and nephrotoxins were avoided avoided. Sodium stabilized. Echocardiogram demonstrated preserved ejection fraction of 60-65% with no evidence of left ventricular hypertrophy. No evidence of wall motion abnormality. Right ventricular systolic pressure of 48 consistent with moderate pulmonary hypertension. Fire Hose Curer followed . Patient had sinus tachycardia, which was likely due to sepsis and dehydration or possibly tumor burden. resolved. Power Tong Operator/oncologist followed. 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 Further care was deferred to outpatient oncologist. Thrombocytosis was likely related to reactive process with ovarian cancer and metastasis. Hemoglobin and hematocrit were closely monitored with goal to keep hemoglobin above 7. No evidence of hemolysis. Peripheral blood smear was reviewed. Epogen or iron at this time was not particularly indicated. Anemia workup was consistent with anemia of chronic disease. Nutritional recommendation implemented in plan of care. . Supportive care provided. Protein supplements implemented in plan of care as per superintendent general recommendations. Bowel regimen instituted . Skin protocol initiated Overall prognosis poor. Patient stabilized and was ready for transfer to long term facility for continuation of care. 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 DISCHARGE INSTRUCTIONS: Patient was discharged to the long term facility/[facility]. Follow up with medical doctor at the facility. I have been assigned to dictate discharge summary for this account. I was not involved in the patient's management. Maya Marley NP Jul 06, 2018 11:38
== END 2018-07-05 18:24 | DRG 871 ==
LOC: EDBD 05:12 → EMR 05:29 → 2E 06:00 → EDBEDREQ 06:45 → 2E 06-20 02:20 → 3E 06-23 10:45
PROC: 0W993ZX Drainage of Right Pleural Cavity, Percutaneous Approach, Diagnostic (ICD-10-PCS; principal; 2018-06-18)
PROC: 0W9B3ZX Drainage of Left Pleural Cavity, Percutaneous Approach, Diagnostic (ICD-10-PCS; 2018-06-24)
PROC: 0F9430Z Drainage of Gallbladder with Drainage Device, Percutaneous Approach (ICD-10-PCS; 2018-06-25)
PROC: 0W9B30Z Drainage of Left Pleural Cavity with Drainage Device, Percutaneous Approach (ICD-10-PCS; 2018-06-30)
DX: A41.9 Sepsis, unspecified organism (principal); E43 Unspecified severe protein-calorie malnutrition; J96.90 Respiratory failure, unspecified, unspecified whether with hypoxia or hypercapnia; K81.0 Acute cholecystitis; R18.0 Malignant ascites; J91.0 Malignant pleural effusion; C79.60 Secondary malignant neoplasm of unspecified ovary; K83.09 Other cholangitis; E87.1 Hypo-osmolality and hyponatremia; G93.40 Encephalopathy, unspecified; B37.49 Other urogenital candidiasis; D63.8 Anemia in other chronic diseases classified elsewhere; C26.9 Malignant neoplasm of ill-defined sites within the digestive system; D47.3 Essential (hemorrhagic) thrombocythemia; D50.9 Iron deficiency anemia, unspecified; R62.7 Adult failure to thrive; Z68.23 Body mass index [BMI] 23.0-23.9, adult; I27.20 Pulmonary hypertension, unspecified; K74.60 Unspecified cirrhosis of liver; G89.3 Neoplasm related pain (acute) (chronic)
CPT/HCPCS: 36415; 71045; 71275; 74177; 74181; 75984; 75989; 76700; 76942; 78266; 80048; 80053; 80061; 80076; 81003; 81050; 82150; 82248; 82533; 82550; 82553; 82607; 82728; 82746; 82977; 83036; 83540; 83550; 83615; 83690; 83735; 83880; 83930; 84100; 84156; 84443; 84484; 84550; 85007; 85025; 85610; 85651; 85730; 86140; 87070; 87086; 87181; 87205; 93005; 93306; 94640; 94664; 94760; 96374; 99291; J2250; J8499

== ENCOUNTER 2018-07-30 11:47 | Inpatient (IN) | payer MEDICARE, MEDICAID ==
[~2018-07-30] VITALS: Ht 152.4 cm; Wt 48.5 kg
[~2018-07-30 11:47] MED LIST: MORPHINE IR15 MG ORAL; MS CONTIN100 MG ORAL; NORCO 5-325 TA1 EACH ORAL
--- NOTE | 2018-07-30 11:47 | NUR ---
ED Nurse Note: Emerald Joya from [facility] c/o increased weakness. patient presents with jaundiced sclera, denies any pain just reports being weak per family member. patient is alert and oriented x4. patient does have a drainage bag for the gall bladder as well as a chest tube incsion on the left side.
[2018-07-30 11:48] VITALS: BP 102/69
--- NOTE | 2018-07-30 12:41 | Diagnostic Imaging Report ---
Indication: Chest pain Comparison: 07/02/2018 A single view chest radiograph was obtained. Findings: Pleural effusion suspected bilaterally. Heart size is normal. Bones are osteopenic. IMPRESSION: Bilateral pleural effusion suspected
[2018-07-30 12:48] LABS: BASOPHILS % (AUTO) 1.1 % (0.0-2.0); EOSINOPHILS % (AUTO) 0.6 % (0.0-3.0); HEMATOCRIT 34.6 % (37.0-47.0); HEMOGLOBIN 11.6 G/DL (12.0-16.0); LYMPHOCYTES % (AUTO) 7.9 % (20.0-45.0); MEAN CORPUSCULAR VOLUME 91 FL (80-99); MONOCYTES % (AUTO) 7.7 % (1.0-10.0); NEUTROPHILS % (AUTO) 82.7 % (45.0-75.0); PLATELET COUNT 530 K/UL (150-450); RED BLOOD COUNT 3.79 M/UL (4.20-5.40); RED CELL DISTRIBUTION WIDTH 15.6 % (11.6-14.8); WHITE BLOOD COUNT 10.6 K/UL (4.8-10.8)
[2018-07-30 13:01] LABS: APPEARANCE,URINE SLIGHTLY CLOUDY; BILIRUBIN, URINE 3+ (NEGATIVE); COLOR,URINE BROWN; GLUCOSE, URINE (UA) NEGATIVE (NEGATIVE); KETONES,URINE 1+ (NEGATIVE); LEUKOCYTE ESTERASE ,URINE 2+ (NEGATIVE); NITRITE,URINE POSITIVE (NEGATIVE); PH,URINE 6.5 (4.5-8.0); PROTEIN,URINE 2+ (NEGATIVE); UROBILINOGEN,URINE 12 MG/DL (0.0-1.0)
--- NOTE | 2018-07-30 13:11 | Emergency Room Report ---
History of Present Illness General Chief Complaint: Generalized Weakness Source: Medical Record Present Illness HPI Patient presents from nursing facility with reports of general weakness Patient has history of ovarian cancer has urostomy bag in place There was no reports of vomiting however the patient had also appeared more jaundiced than usual Denies any headache denies any diarrhea Patient has not been eating well over the past several days No obvious documented fevers Allergies: Coded Allergies: No Known Allergies (Unverified , 06/17/18) Patient History Limited by: medical condition Past Medical History: see triage record Pertinent Family History: unable to obtain Last Menstrual Period: na Reviewed Nursing Documentation: PMH: Agreed; PSxH: Agreed Nursing Documentation-PMH Past Medical History: No History, Except For Hx Cardiac Problems: Yes - pleural effusion Hx Cancer: Yes - ovarian Review of Systems All Other Systems: limited - Other than the ones mentioned in the history of present illness all others are reviewed however they do stay limited due to the patient's mental status Physical Exam Vital Signs Date Time Temp Pulse Resp B/P (MAP) Pulse Ox O2 Delivery O2 Flow Rate FiO2 07/30/18 11:31 98.1 98 20 102/69 88 Room Air Sp02 EP Interpretation: reviewed, abnormal - Low interpretation however on 2 L the patient is saturating at 95% which is normal General Appearance: well appearing, no apparent distress Head: normocephalic, atraumatic Eyes: bilateral eye PERRL, bilateral eye EOMI, bilateral eye scleral icterus ENT: hearing grossly normal, TMs + canals normal, uvula midline, dry mucus membranes Neck: full range of motion, supple, no meningismus, no bony tend Respiratory: lungs clear, normal breath sounds, no rhonchi, no respiratory distress, no retraction, no accessory muscle use Cardiovascular #1: normal peripheral pulses, regular rate, rhythm, no edema, no gallop, no JVD, no murmur Gastrointestinal: normal bowel sounds, non-distended, no pulsatile mass, no rebound, other - Urostomy bag on the right side Genitourinary: no CVA tenderness Musculoskeletal: other - Generally weak Neurologic: responsive, sensory intact Psychiatric: mood/affect normal Skin: jaundice Lymphatic: normal inspection, no adenopathy Medical Decision Making Diagnostic Impression: Primary Impression: Cancer, metastatic Additional Impressions: Cirrhosis Jaundice Episode of generalized weakness UTI (urinary tract infection) ER Course Patient has multiple medical conditions Previous history of metastatic disease Patient appears significantly jaundiced Likely secondary to carcinomatosis pathology Extensive blood work reveals liver function test abnormal Patient received further IV hydration X-ray imaging also shows bilateral effusions Patient admitted for further inpatient care Labs Test 07/30/18 12:05 07/31/18 05:10 White Blood Count 10.6 K/UL (4.8-10.8) 8.1 K/UL (4.8-10.8) Red Blood Count 3.79 M/UL (4.20-5.40) 3.61 M/UL (4.20-5.40) Hemoglobin 11.6 G/DL (12.0-16.0) 11.1 G/DL (12.0-16.0) Hematocrit 34.6 % (37.0-47.0) 33.1 % (37.0-47.0) Mean Corpuscular Volume 91 FL (80-99) 92 FL (80-99) Mean Corpuscular Hemoglobin 30.5 PG (27.0-31.0) 30.8 PG (27.0-31.0) Mean Corpuscular Hemoglobin Concent 33.4 G/DL (32.0-36.0) 33.5 G/DL (32.0-36.0) Red Cell Distribution Width 15.6 % (11.6-14.8) 16.3 % (11.6-14.8) Platelet Count 530 K/UL (150-450) 542 K/UL (150-450) Mean Platelet Volume 4.6 FL (6.5-10.1) 4.3 FL (6.5-10.1) Neutrophils (%) (Auto) 82.7 % (45.0-75.0) 82.4 % (45.0-75.0) Lymphocytes (%) (Auto) 7.9 % (20.0-45.0) 8.0 % (20.0-45.0) Monocytes (%) (Auto) 7.7 % (1.0-10.0) 7.7 % (1.0-10.0) Eosinophils (%) (Auto) 0.6 % (0.0-3.0) 0.5 % (0.0-3.0) Basophils (%) (Auto) 1.1 % (0.0-2.0) 1.4 % (0.0-2.0) Urine Color Brown Urine Appearance Slightly cloudy Urine pH 6.5 (4.5-8.0) Urine Specific [place] 1.015 (1.005-1.035) Urine Protein 2+ (NEGATIVE) Urine Glucose (UA) Negative (NEGATIVE) Urine Ketones 1+ (NEGATIVE) Urine Blood 1+ (NEGATIVE) Urine Nitrite Positive (NEGATIVE) Urine Bilirubin 3+ (NEGATIVE) Urine Ictotest Positive (NEGATIVE) Urine Urobilinogen 12 MG/DL (0.0-1.0) Urine Leukocyte Esterase 2+ (NEGATIVE) Urine RBC 2-4 /HPF (0 - 2) Urine WBC 0-2 /HPF (0 - 2) Urine Squamous Epithelial Cells Occasional /LPF Urine Amorphous Sediment Few /LPF (NONE) Urine Bacteria Few /HPF (NONE) Urine Mucus Few /LPF (NONE/OCC) Sodium Level 132 MMOL/L (136-145) 132 MMOL/L (136-145) Potassium Level 3.6 MMOL/L (3.5-5.1) 2.9 MMOL/L (3.5-5.1) Chloride Level 96 MMOL/L (98-107) 99 MMOL/L (98-107) Carbon Dioxide Level 24 MMOL/L (21-32) 26 MMOL/L (21-32) Anion Gap 12 mmol/L (5-15) 7 mmol/L (5-15) Blood Urea Nitrogen 16 mg/dL (7-18) 13 mg/dL (7-18) Creatinine 0.4 MG/DL (0.55-1.30) 0.4 MG/DL (0.55-1.30) Estimat Glomerular Filtration Rate mL/min (>60) mL/min (>60) Glucose Level 112 MG/DL (74-106) 99 MG/DL (74-106) Lactic Acid Level 1.30 mmol/L (0.4-2.0) Calcium Level 8.4 MG/DL (8.5-10.1) 8.0 MG/DL (8.5-10.1) Total Bilirubin 9.9 MG/DL (0.2-1.0) 10.4 MG/DL (0.2-1.0) Direct Bilirubin 8.2 MG/DL (0.0-0.3) 8.9 MG/DL (0.0-0.3) Aspartate Amino Transf (AST/SGOT) 125 U/L (15-37) 129 U/L (15-37) Alanine Aminotransferase (ALT/SGPT) 114 U/L (12-78) 110 U/L (12-78) Alkaline Phosphatase 1495 U/L (46-116) 1396 U/L (46-116) Total Creatine Kinase 24 U/L (26-308) Creatine Kinase MB < 0.5 NG/ML (0.0-3.6) Creatine Kinase MB Relative Index Troponin I 0.007 ng/mL (0.000-0.056) Pro-B-Type Natriuretic Peptide 155 pg/mL (0-125) Total Protein 5.5 G/DL (6.4-8.2) 4.9 G/DL (6.4-8.2) Albumin 1.9 G/DL (3.4-5.0) 1.6 G/DL (3.4-5.0) Globulin 3.6 g/dL 3.3 g/dL Lipase 123 U/L (73-393) 103 U/L (73-393) Prothrombin Time 10.4 SEC (9.30-11.50) Prothromb Time International Ratio 1.0 (0.9-1.1) Activated Partial Thromboplast Time 28 SEC (23-33) C-Reactive Protein, Quantitative 5.3 mg/dL (0.00-0.90) Albumin/Globulin Ratio 0.5 (1.0-2.7) Amylase Level 25 U/L (25-115) Rhythm Strip Diag. Results EP Interpretation: yes Rate: 80 Rhythm: NSR, no PVC's, no ectopy Chest X-Ray Diagnostic Results Chest X-Ray Diagnostic Results : Chest X-Ray Ordered: Yes # of Views/Limited/Complete: 1 View Indication: Chest Pain EP Interpretation: Yes Interpretation: no consolidation, no pneumothorax, other - Bilateral effusion Impression: Other - Bilateral effusion Electronically Signed by: Vane Fernandez DO Last Vital Signs Date Time Temp Pulse Resp B/P (MAP) Pulse Ox O2 Delivery O2 Flow Rate FiO2 07/30/18 11:48 97.8 95 20 102/69 98 Room Air Status: improved Disposition: ADMITTED INPATIENT Condition: Serious Vane Fernandez DO Jul 30, 2018 13:11
[2018-07-30] MEDS ORDERED: cefTRIAXone 1 GM in NS 55 ML IVPB ONE (13:45)
[2018-07-30 14:05] VITALS: BP 113/72
[2018-07-30 14:50] LABS: ALBUMIN 1.9 G/DL (3.4-5.0); ALKALINE PHOSPHATASE 1495 U/L (46-116); ANION GAP 12 mmol/L (5-15); BILIRUBIN,TOTAL 9.9 MG/DL (0.2-1.0); BLOOD UREA NITROGEN 16 mg/dL (7-18); CALCIUM 8.4 MG/DL (8.5-10.1); CARBON DIOXIDE 24 MMOL/L (21-32); CHLORIDE 96 MMOL/L (98-107); CKMB < 0.5 NG/ML (0.0-3.6); CREATININE 0.4 MG/DL (0.55-1.30); POTASSIUM 3.6 MMOL/L (3.5-5.1); SODIUM 132 MMOL/L (136-145)
[2018-07-30 14:51] LABS: ASPARTATE AMINO TRANSFERASE 125 U/L (15-37)
[2018-07-30 14:52] LABS: ALANINE AMINOTRANSFERASE 114 U/L (12-78); CREATINE KINASE 24 U/L (26-308)
[2018-07-30 14:53] LABS: BILIRUBIN,DIRECT 8.2 MG/DL (0.0-0.3)
[2018-07-30 16:17] VITALS: BP 118/70
--- NOTE | 2018-07-30 16:33 | NUR ---
ED Nurse Note: unable to give report, Nurse states that she is not ready
--- NOTE | 2018-07-30 17:20 | NUR ---
TRANSFER TO FLOOR: Patient transferred to [facility] as ordered, per . Report given to KOFI [place]
[2018-07-30 18:00] VITALS: BP 111/72
[2018-07-30] MEDS ORDERED: HYDROcodone/Acetamin 5/325 tab ORAL PRN ×2 (18:30→19:15)
[2018-07-30] MEDS ORDERED: Milk of Magnesia 30ml Ud ORAL PRN (19:15)
--- NOTE | 2018-07-30 19:40 | NUR ---
NURSE NOTES: Received patient on bed awake, no s/s of any distress, denies any pain, IV line patent and intact, patient has right cholecystostomy tube and left pleuryx cath. Bed in low position and locked, call light within reach, will continue to monitor.
[2018-07-30 20:00] VITALS: BP 110/74
[2018-07-30] MEDS ORDERED: Piperacillin/Tazobactam 3.375 GM in D5W 110 ML IVPB SCH (20:00)
--- NOTE | 2018-07-30 20:39 | NUR ---
NURSE NOTES: Received pt from SOLUTION DESIGN ENGINEERKOFI DOMINGUEZ at 1745. all admision assessments and instructions done and pt verbally accepted to understand all. Pt is alert and orient x4. pt is in RA. No SOB or acute respiratory distress noted. called Dr fortune ordered to resume SNF orders, all noted and carried out. called SNF and reviewed all orders with KOFI BERMAN. pt has old surgery site on the stomach, gall bladder drainage on the R side and chest tube incision on the L chest, Dr fortune is aware, Dr jacobsen visited pt and stated don't touch them he will F/U tomorrow. Dr jacobsen ordered to resume all treatment orders of SNF. noted and carried out. R leg is swollen and elevated. pt's daughter and are bed site. all needs attended, bed is locked and is in the lowest position. call light within easy reach. will continue to monitor.
--- NOTE | 2018-07-30 20:56 | Consultation ---
History of Present Illness General Date patient seen: Jul 30, 2018 Chief Complaint: Generalized Weakness Present Illness HPI 72 F well known to me from prior admission. Hx of metastatic ovarian cancer. prior admission had cholecystitis requiring cholecystostomy tube placement. was discharged to SNF in stable condition. I have been in contact with SNF since discharge to discuss tube and care plan for drains. She was noted to jaundice recently and had left foot edema. Was transferred to [facility] for evaluation. Surgery called to evaluate and assist with care. patient seen, chart reviewed, patient examined. discussed care and findings with daughter. Allergies: Coded Allergies: No Known Allergies (Unverified , 06/17/18) Medication History Scheduled Morphine HCl (Morphine Sulfate ER), 15 MG ORAL BID, (Reported) Scheduled PRN Hydrocodone Bit/Acetaminophen 5-325* (Hayward 5-325*), Unknown Dose ORAL Q4H PRN for For Pain, (Reported) Patient History History Provided By: Patient, Family Member, Medical Record, PMD Healthcare decision maker N Resuscitation status Advanced Directive on File Past Medical/Surgical History Past Medical/Surgical History: (1) Hyponatremia (2) Hypoalbuminemia (3) Cholecystitis (4) Cirrhosis (5) Abdominal pain (6) Cancer, metastatic (7) Dehydration (8) Episode of generalized weakness Review of Systems Constitutional: Denies: no symptoms, see HPI, chills, sweats, fever, malaise, weakness, other Eye: Denies: no symptoms, see HPI, eye pain, blurred vision, tearing, double vision, nose pain, nose congestion, acuity changes, discharge, other ENT: Denies: no symptoms, see HPI, ear pain, ear discharge, nose pain, nose congestion, throat pain, throat swelling, mouth pain, hearing loss, nasal discharge, other Respiratory: Denies: no symptoms, see HPI, cough, orthopnea, shortness of breath, stridor, wheezing, [place], sputum, other Cardiovascular: Denies: no symptoms, see HPI, chest pain, edema, palpitations, syncope, PND, other Gastrointestinal: Denies: no symptoms, see HPI, abdominal pain, constipation, diarrhea, nausea, vomiting, melena, hematemesis, other Genitourinary: Denies: no symptoms, see HPI, discharge, dysuria, frequency, hematuria, pain, retention, incontinence, urgency, vag bleed/dc, other Musculoskeletal: Denies: no symptoms, see HPI, back pain, gout, joint pain, joint swelling, muscle pain, muscle stiffness, other Skin: Denies: no symptoms, see HPI, rash, change in color, change in hair/nails , dryness, lesions, other Psychiatric: Denies: no symptoms, see HPI, prior hx, anxiety, depressed feelings, emotional problems, SI, HI, hallucinations, other Neurological: Denies: no symptoms, see HPI, headache, numbness, paresthesia, seizure, tingling, tremors, focal weakness, syncope, dizziness, other Endocrine: Denies: no symptoms, see HPI, excessive sweating, flushing, intolerance to temperature, increased thirst, increased urine, unexplained weight loss, other Hematologic/Lymphatic: Denies: no symptoms, see HPI, anemia, blood clots, easy bleeding, easy bruising, swollen glands, diathesis, other All Other Systems: negative except mentioned in HPI Physical Exam General Appearance: no apparent distress Lines, tubes and drains: peripheral HEENT: mucous membranes moist Neck: normal inspection Respiratory/Chest: chest wall non-tender, lungs clear, chest tube - thoravent left side , other Cardiovascular/Chest: regular rhythm Abdomen: normal bowel sounds, non tender, soft, other - sasha drain Extremities: normal range of motion, non-tender, other - left foot edema Skin Exam: warm/dry Neurologic: alert, responsive Last 24 Hour Vital Signs Date Time Temp Pulse Resp B/P (MAP) Pulse Ox O2 Delivery O2 Flow Rate FiO2 07/30/18 18:16 Room Air 07/30/18 18:00 98.1 100 18 111/72 (85) 93 07/30/18 17:20 97.8 85 20 109/72 98 Room Air 07/30/18 16:17 97.8 92 20 118/70 98 Room Air 07/30/18 14:05 97.8 95 20 113/72 98 Room Air 07/30/18 11:48 97.8 95 20 102/69 98 Room Air 07/30/18 11:48 98 20 Room Air 07/30/18 11:31 98.1 98 20 102/69 88 Room Air Laboratory Tests Test 07/30/18 12:05 White Blood Count 10.6 K/UL (4.8-10.8) Red Blood Count 3.79 M/UL (4.20-5.40) L Hemoglobin 11.6 G/DL (12.0-16.0) L Hematocrit 34.6 % (37.0-47.0) L Mean Corpuscular Volume 91 FL (80-99) Mean Corpuscular Hemoglobin 30.5 PG (27.0-31.0) Mean Corpuscular Hemoglobin Concent 33.4 G/DL (32.0-36.0) Red Cell Distribution Width 15.6 % (11.6-14.8) H Platelet Count 530 K/UL (150-450) H Mean Platelet Volume 4.6 FL (6.5-10.1) L Neutrophils (%) (Auto) 82.7 % (45.0-75.0) H Lymphocytes (%) (Auto) 7.9 % (20.0-45.0) L Monocytes (%) (Auto) 7.7 % (1.0-10.0) Eosinophils (%) (Auto) 0.6 % (0.0-3.0) Basophils (%) (Auto) 1.1 % (0.0-2.0) Urine Color Brown Urine Appearance Slightly cloudy Urine pH 6.5 (4.5-8.0) Urine Specific [place] 1.015 (1.005-1.035) Urine Protein 2+ (NEGATIVE) H Urine Glucose (UA) Negative (NEGATIVE) Urine Ketones 1+ (NEGATIVE) H Urine Blood 1+ (NEGATIVE) H Urine Nitrite Positive (NEGATIVE) H Urine Bilirubin 3+ (NEGATIVE) H Urine Ictotest Positive (NEGATIVE) Urine Urobilinogen 12 MG/DL (0.0-1.0) H Urine Leukocyte Esterase 2+ (NEGATIVE) H Urine RBC 2-4 /HPF (0 - 2) H Urine WBC 0-2 /HPF (0 - 2) Urine Squamous Epithelial Cells Occasional /LPF Urine Amorphous Sediment Few /LPF (NONE) H Urine Bacteria Few /HPF (NONE) Urine Mucus Few /LPF (NONE/OCC) H Sodium Level 132 MMOL/L (136-145) L Potassium Level 3.6 MMOL/L (3.5-5.1) Chloride Level 96 MMOL/L (98-107) L Carbon Dioxide Level 24 MMOL/L (21-32) Anion Gap 12 mmol/L (5-15) Blood Urea Nitrogen 16 mg/dL (7-18) Creatinine 0.4 MG/DL (0.55-1.30) L Estimat Glomerular Filtration Rate mL/min (>60) Glucose Level 112 MG/DL (74-106) H Lactic Acid Level 1.30 mmol/L (0.4-2.0) Calcium Level 8.4 MG/DL (8.5-10.1) L Total Bilirubin 9.9 MG/DL (0.2-1.0) H Direct Bilirubin 8.2 MG/DL (0.0-0.3) H Aspartate Amino Transf (AST/SGOT) 125 U/L (15-37) H Alanine Aminotransferase (ALT/SGPT) 114 U/L (12-78) H Alkaline Phosphatase 1495 U/L (46-116) H Total Creatine Kinase 24 U/L (26-308) L Creatine Kinase MB < 0.5 NG/ML (0.0-3.6) Creatine Kinase MB Relative Index Troponin I 0.007 ng/mL (0.000-0.056) Pro-B-Type Natriuretic Peptide 155 pg/mL (0-125) H Total Protein 5.5 G/DL (6.4-8.2) L Albumin 1.9 G/DL (3.4-5.0) L Globulin 3.6 g/dL Lipase 123 U/L (73-393) Height (Feet): 5 Height (Inches): 0.00 Weight (Pounds): 100 Medications Current Medications Medications (Trade) Dose Ordered Sig/Susana Route PRN Reason Start Time Stop Time Status Last Admin Dose Admin Acetaminophen (Tylenol) 650 mg Q4H PRN ORAL Mild Pain/Temp > 100.5 07/30/18 19:15 08/29/18 19:14 Acetaminophen/ Hydrocodone Bitart (Hayward 5/325) 1 tab Q4H PRN ORAL Moderate Pain (Pain Scale 4-6) 07/30/18 19:15 08/06/18 19:14 Apixaban (Eliquis) 2.5 mg BID ORAL 07/31/18 09:00 08/30/18 08:59 Barium Sulfate (Readi-Cat 2) 450 ml NOW PRN ORAL Radiology Procedure 07/30/18 18:30 08/01/18 18:18 Bisacodyl (Dulcolax) 10 mg DAILYPRN PRN RECTAL Constipation 07/30/18 20:15 08/29/18 20:14 Dextrose/Sodium Chloride 1,000 ml @ 75 mls/hr [id number] IV 07/30/18 18:30 08/29/18 18:29 Ferrous Sulfate (Feosol) 330 mg DAILY ORAL 07/30/18 20:00 08/29/18 19:59 Heparin Sodium (Porcine) (Heparin 5000 units/ml) 5,000 units EVERY 12 HOURS SUBQ 07/30/18 21:00 08/29/18 20:59 Magnesium Hydroxide (Mom) 30 ml DAILYPRN PRN ORAL Constipation 07/30/18 19:15 08/29/18 19:14 Morphine HCl (Morphine IR) 15 mg BID ORAL 07/31/18 09:00 08/07/18 08:59 UNV Multivitamins Therapeutic (Therapeutic Multivitamin) 1 ea DAILY ORAL 07/31/18 09:00 08/30/18 08:59 Non-Formulary Medication (Non-Formulary Med) 1 ea DAILY ORAL 07/31/18 09:00 08/30/18 08:59 UNV Ondansetron HCl (Zofran ODT) 4 mg Q6H PRN ORAL Nausea & Vomiting 07/30/18 20:30 08/29/18 20:29 Piperacillin Sod/ Tazobactam Sod 3.375 gm/Dextrose 110 ml @ 27.5 mls/hr EVERY 8 HOURS IVPB 07/30/18 22:00 08/04/18 21:59 Assessment/Plan Problem List: (1) Jaundice Assessment & Plan: hx cholecystitis s/p cholecystostomy tube. tube now draining minimal. now with jaundice. lft's abnormal, t bili elevated, alk phos elevated no abd pain -CT A/P -Abdominal ultrasound -tube cholangiogram IVF IV Abx trend labs ICD Codes: R17 - Unspecified jaundice SNOMED: 47144171 (2) Lower extremity edema Assessment & Plan: left foot edema right okay eval for DVT studies ICD Codes: R60.0 - Localized edema SNOMED: 018009157 Rich Kiran Jul 30, 2018 20:56
[2018-07-30] MEDS: Ferrous Sulfate 300 MG/5 ML UDC ORAL SCH (21:20)
[2018-07-30] MEDS: Piperacillin/Tazobactam 3.375 GM in D5W 110 ML IVPB SCH (21:20)
[2018-07-30] MEDS: D5NS 1,000 ML IV SCH (21:21)
[2018-07-30] MEDS: Heparin 5000 units/ml inj SUBQ SCH (21:21)
[2018-07-31] VITALS: BP 105/71
[2018-07-31 04:00] VITALS: BP 111/78
[2018-07-31] MEDS: Piperacillin/Tazobactam 3.375 GM in D5W 110 ML IVPB SCH ×3 (05:45→21:11)
--- NOTE | 2018-07-31 07:15 | NUR ---
HAND-OFF: Report given to Khurram KIRBY.
--- NOTE | 2018-07-31 07:30 | NUR ---
NURSE NOTES: Received pt from [facility] BARRON. Pt is alert and orient x4. Pt is in RA. No SOB or acute respiratory distress noted. pt has intact iv access RA is running well. Pt has gall bladder tube R side and chest tube incision L side. pt is NPO due to procedure today. All needs attended, bed is locked and is in the lowest position. call light within easy reach. will continue to monitor.
[2018-07-31 07:31] LABS: BASOPHILS % (AUTO) 1.4 % (0.0-2.0); EOSINOPHILS % (AUTO) 0.5 % (0.0-3.0); HEMATOCRIT 33.1 % (37.0-47.0); HEMOGLOBIN 11.1 G/DL (12.0-16.0); MEAN CORPUSCULAR VOLUME 92 FL (80-99); MONOCYTES % (AUTO) 7.7 % (1.0-10.0); NEUTROPHILS % (AUTO) 82.4 % (45.0-75.0); PLATELET COUNT 542 K/UL (150-450); RED BLOOD COUNT 3.61 M/UL (4.20-5.40); RED CELL DISTRIBUTION WIDTH 16.3 % (11.6-14.8); WHITE BLOOD COUNT 8.1 K/UL (4.8-10.8)
[2018-07-31] MEDS: D5NS 1,000 ML IV SCH (07:50)
[2018-07-31 07:56] LABS: ALANINE AMINOTRANSFERASE 110 U/L (12-78); ALBUMIN 1.6 G/DL (3.4-5.0); ALBUMIN/GLOBULIN RATIO 0.5 (1.0-2.7); ALKALINE PHOSPHATASE 1396 U/L (46-116); AMYLASE 25 U/L (25-115); ANION GAP 7 mmol/L (5-15); ASPARTATE AMINO TRANSFERASE 129 U/L (15-37); BILIRUBIN,TOTAL 10.4 MG/DL (0.2-1.0); BLOOD UREA NITROGEN 13 mg/dL (7-18); CARBON DIOXIDE 26 MMOL/L (21-32); CHLORIDE 99 MMOL/L (98-107); CREATININE 0.4 MG/DL (0.55-1.30); POTASSIUM 2.9 MMOL/L (3.5-5.1); SODIUM 132 MMOL/L (136-145)
[2018-07-31 07:58] LABS: BILIRUBIN,DIRECT 8.9 MG/DL (0.0-0.3)
[2018-07-31 08:00] VITALS: BP 122/77
[2018-07-31] MEDS: Multivitamin w/Minerals tab ORAL SCH (09:00)
[2018-07-31] MEDS: Ferrous Sulfate 300 MG/5 ML UDC ORAL SCH (09:00)
[2018-07-31] MEDS ORDERED: Morphine IR 15mg tab ORAL SCH (09:00)
[2018-07-31] MEDS ORDERED: Eliquis 2.5mg tablet ORAL SCH (09:00)
[2018-07-31] MEDS: Heparin 5000 units/ml inj SUBQ SCH (09:00)
--- NOTE | 2018-07-31 11:50 | NUR ---
CASE MANAGEMENT:REVIEW 72 YR OLD FEMALE [facility] CC: GENERALIZED WEAKNESS AND WORSENING JAUNDICED SI: DEHYDRATION. OVARIAN CANCER. UTI 98.0 98 20 102/69 88% ON RA H/H-11.6/34.6 TBILI+9.9 DBILI+8.2 AST/ALT+125/114 IS: 1L NS BOLUS IV ROCEPHIN CXR BLOOD CX : TO TELEMETRY UNIT INTERQUAL CRITERIA MET
--- NOTE | 2018-07-31 12:29 | NUR ---
RD ASSESSMENT & RECOMMENDATIONS SEE CARE ACTIVITY FOR COMPLETE ASSESSMENT DAILY ESTIMATED NEEDS: Needs based on Cancer 56kg 30-35 kcals/kg 4936-2716 total kcals 1-2 g protein/kg 56-112 g total protein 25-30 mL/kg 3592-1404 total fluid mLs NUTRITION DIAGNOSIS: * Increased kcal and protein needs r/t cancer, wasting as evidenced by pt h/o metastatic ovarian cancer s/p resection, w/ moderate-severe upper body wasting, pt reports progressive wt loss of >40lbs in the last few years. * Altered nutrition related lab values R/T liver dysfunction, clinical condition as evidenced by elev T bili (10.4), elev LFTs, low K (2.9) CURRENT DIET:Regular, soft easy chew + Ensure Enlive TID / NPO for procedure PO DIET RECOMMENDATIONS: Liberalized REGULAR diet/ texture as tolerated or per [employer] ADDITIONAL RECOMMENDATIONS: 1) Obtain a calibrated bed scale wt-> pt reports wt loss, +wasting 2) Consider [employer] evaluation for appropriate texture 3) Monitor PO intake closely-> consider appetite stimulant if medically appropriate -> consistently poor PO prev admission, reports poor appetite, +wasting, 4) Monitor lytes, replete as needed 5) Continue Ensure Enlive TID w/ meals
--- NOTE | 2018-07-31 13:25 | NUR ---
NURSE NOTES: Patient on room air, no sign of distress and shortness of breath; no sign of chest pain; IV R-Hand fluid running; bed at lowest side, breaks engaged. call light within reach. will keep monitoring.
--- NOTE | 2018-07-31 14:01 | General Progress Note ---
Assessment/Plan Problem List: (1) Cancer, metastatic ICD Codes: C79.9 - Secondary malignant neoplasm of unspecified site SNOMED: 843443374 (2) Jaundice ICD Codes: R17 - Unspecified jaundice SNOMED: 91431597 (3) Abdominal pain ICD Codes: R10.9 - Unspecified abdominal pain SNOMED: 03399676 (4) Cholecystitis ICD Codes: K81.9 - Cholecystitis, unspecified SNOMED: 49180231 (5) Dehydration ICD Codes: E86.0 - Dehydration SNOMED: 49374327 Assessment/Plan d/w surgical team cholecystostomy tube not draining significant rise in TB since last admission will plan ERCP on Friday abx fu labs Subjective ROS Limited/Unobtainable: Yes Allergies: Coded Allergies: No Known Allergies (Unverified , 06/17/18) Subjective C/O ABD PAIN Objective Last 24 Hour Vital Signs Date Time Temp Pulse Resp B/P (MAP) Pulse Ox O2 Delivery O2 Flow Rate FiO2 07/31/18 09:00 Room Air 07/31/18 08:00 97.8 90 17 122/77 (92) 98 07/31/18 04:00 98.6 104 18 111/78 (89) 95 07/31/18 00:00 98.1 103 18 105/71 (82) 98 07/30/18 21:00 Room Air 07/30/18 20:00 99.0 100 16 110/74 (86) 96 07/30/18 18:16 Room Air 07/30/18 18:00 98.1 100 18 111/72 (85) 93 07/30/18 17:20 97.8 85 20 109/72 98 Room Air 07/30/18 16:17 97.8 92 20 118/70 98 Room Air 07/30/18 14:05 97.8 95 20 113/72 98 Room Air Intake and Output 07/30/18 07/31/18 19:00 07:00 Intake Total 1065 ml 175.0 ml Balance 1065 ml 175.0 ml Intake Oral 65 ml 65 ml IV Total 1000 ml 110.0 ml # Bowel Movements 1 1 Laboratory Tests 07/31/18 05:10: White Blood Count 8.1, Red Blood Count 3.61L, Hemoglobin 11.1L, Hematocrit 33.1L , Mean Corpuscular Volume 92, Mean Corpuscular Hemoglobin 30.8, Mean Corpuscular Hemoglobin Concent 33.5, Red Cell Distribution Width 16.3H, Platelet Count 542H, Mean Platelet Volume 4.3L, Neutrophils (%) (Auto) 82.4H, Lymphocytes (%) (Auto) 8.0L, Monocytes (%) (Auto) 7.7, Eosinophils (%) (Auto) 0.5, Basophils (%) (Auto) 1.4, Erythrocyte Sedimentation Rate 63H, Prothrombin Time 10.4, Prothromb Time International Ratio 1.0, Activated Partial Thromboplast Time 28, Sodium Level 132L, Potassium Level 2.9L, Chloride Level 99 , Carbon Dioxide Level 26, Anion Gap 7, Blood Urea Nitrogen 13, Creatinine 0.4L , Estimat Glomerular Filtration Rate , Glucose Level 99, Calcium Level 8.0L, Total Bilirubin 10.4H, Direct Bilirubin 8.9H, Aspartate Amino Transf (AST/SGOT) 129H, Alanine Aminotransferase (ALT/SGPT) 110H, Alkaline Phosphatase 1396H, C- Reactive Protein, Quantitative 5.3H, Total Protein 4.9L, Albumin 1.6L, Globulin 3.3, Albumin/Globulin Ratio 0.5L, Amylase Level 25, Lipase 103 Height (Feet): 5 Height (Inches): 0.00 Weight (Pounds): 100 General Appearance: alert EENT: scleral icterus Neck: supple Cardiovascular: normal rate Respiratory/Chest: decreased breath sounds Abdomen: soft, hypoactive bowel sounds, tender Extremities: non-tender Tramaine Miller MD Jul 31, 2018 14:01
--- NOTE | 2018-07-31 14:22 | NUR ---
NURSE NOTES: Patient had lower extremity venous evaluation, and found out left leg acute thrombus, I tried to call Dr Rollins, I called the office and also I paged, am waiting call back to get an order.
--- NOTE | 2018-07-31 14:27 | Diagnostic Imaging Report ---
Indication: Abdominal pain, jaundice, history of cholecystostomy Technique: Butt-scale and duplex images of the upper abdomen were obtained. Doppler interrogation of the hepatic and pancreatic vessels Comparison: 06/17/2017. Also CT scan of earlier the same day Findings: Gallbladder is not well-demonstrated, demonstrates a cholecystostomy tube in place. It is nondistended. Previously demonstrated gallstones are not well visualized. Sonographic Wilkes's sign could not be assessed. Common bile duct measures 4 mm in diameter. Intrahepatic ducts are mildly dilated in places. More strikingly, there is diffuse thickening and increased echogenicity of the biliary ductal hernandez. Liver demonstrates normal echogenicity, no focal abnormality. Portal vein and hepatic veins are patent. There is suggestion of increased echogenicity of the portal vein hernandez Pancreas is unremarkable. Spleen is unremarkable. Left kidney measures 9.1 cm in length. Right kidney measures 8.9 cm length. Both kidneys demonstrate normal echogenicity. There is no hydronephrosis. No focal abnormality . There is a small amount of ascites fluid present, also previously demonstrated. There are bilateral pleural effusions. A drainage catheter is present within the left pleural effusion.. Non-aneurysmal abdominal aorta . Impression: Nondilated common bile duct, but mild intrahepatic biliary ductal dilatation and striking thickening and increased echogenicity of the biliary ductal hernandez. Findings are suspicious for ascending cholangitis Cholecystostomy tube within the gallbladder, which is nondistended Ascites fluid, also previously demonstrated bilateral pleural effusions, drainage catheter within left pleural effusion
--- NOTE | 2018-07-31 14:50 | NUR ---
CHARGE NURSE NOTES: POTASSIUM 40MEQ THAT WAS PREVIOUSLY ORDERED NOT GIVEN DUE TO PATIENT BEING OFF UNIT. MEDICATION RE -ORDERED AT THIS TIME BECAUSE ORDER FELL OUT FROM [facility].
--- NOTE | 2018-07-31 15:00 | NUR ---
NURSE NOTES: I called to Dr Rollins office regarding patient's acute thrombosis diagnosis, in his office I left patient's name, room number and the reason for my call with the lady who answer the call. I also left my call back number and my name. waiting for order.
[2018-07-31] MEDS ORDERED: Morphine Sulfate 2mg/ml Inj(IV/IM USE ONLY) IVP PRN (15:15)
--- NOTE | 2018-07-31 15:17 | Surgery Progress Note ---
Surgery Progress Note Subjective Additional Comments no acute events. had scan done. labs noted. drained from thoravent. spoke with family. Objective Last 24 Hour Vital Signs Date Time Temp Pulse Resp B/P (MAP) Pulse Ox O2 Delivery O2 Flow Rate FiO2 07/31/18 09:00 Room Air 07/31/18 08:00 97.8 90 17 122/77 (92) 98 07/31/18 04:00 98.6 104 18 111/78 (89) 95 07/31/18 00:00 98.1 103 18 105/71 (82) 98 07/30/18 21:00 Room Air 07/30/18 20:00 99.0 100 16 110/74 (86) 96 07/30/18 18:16 Room Air 07/30/18 18:00 98.1 100 18 111/72 (85) 93 07/30/18 17:20 97.8 85 20 109/72 98 Room Air 07/30/18 16:17 97.8 92 20 118/70 98 Room Air I&O Intake and Output 07/30/18 07/31/18 18:59 06:59 Intake Total 1065 ml 175.0 ml Balance 1065 ml 175.0 ml Intake Oral 65 ml 65 ml IV Total 1000 ml 110.0 ml # Bowel Movements 1 1 Dressing: dry Wound: other Drains: other Respiratory: decreased breath sounds Abdomen: soft, present bowel sounds, non-distended Extremities: no cyanosis, other Laboratory Tests Test 07/31/18 05:10 White Blood Count 8.1 K/UL (4.8-10.8) Red Blood Count 3.61 M/UL (4.20-5.40) L Hemoglobin 11.1 G/DL (12.0-16.0) L Hematocrit 33.1 % (37.0-47.0) L Mean Corpuscular Volume 92 FL (80-99) Mean Corpuscular Hemoglobin 30.8 PG (27.0-31.0) Mean Corpuscular Hemoglobin Concent 33.5 G/DL (32.0-36.0) Red Cell Distribution Width 16.3 % (11.6-14.8) H Platelet Count 542 K/UL (150-450) H Mean Platelet Volume 4.3 FL (6.5-10.1) L Neutrophils (%) (Auto) 82.4 % (45.0-75.0) H Lymphocytes (%) (Auto) 8.0 % (20.0-45.0) L Monocytes (%) (Auto) 7.7 % (1.0-10.0) Eosinophils (%) (Auto) 0.5 % (0.0-3.0) Basophils (%) (Auto) 1.4 % (0.0-2.0) Erythrocyte Sedimentation Rate 63 MM/HR (0-30) H Prothrombin Time 10.4 SEC (9.30-11.50) Prothromb Time International Ratio 1.0 (0.9-1.1) Activated Partial Thromboplast Time 28 SEC (23-33) Sodium Level 132 MMOL/L (136-145) L Potassium Level 2.9 MMOL/L (3.5-5.1) L Chloride Level 99 MMOL/L (98-107) Carbon Dioxide Level 26 MMOL/L (21-32) Anion Gap 7 mmol/L (5-15) Blood Urea Nitrogen 13 mg/dL (7-18) Creatinine 0.4 MG/DL (0.55-1.30) L Estimat Glomerular Filtration Rate mL/min (>60) Glucose Level 99 MG/DL (74-106) Calcium Level 8.0 MG/DL (8.5-10.1) L Total Bilirubin 10.4 MG/DL (0.2-1.0) H Direct Bilirubin 8.9 MG/DL (0.0-0.3) H Aspartate Amino Transf (AST/SGOT) 129 U/L (15-37) H Alanine Aminotransferase (ALT/SGPT) 110 U/L (12-78) H Alkaline Phosphatase 1396 U/L (46-116) H C-Reactive Protein, Quantitative 5.3 mg/dL (0.00-0.90) H Total Protein 4.9 G/DL (6.4-8.2) L Albumin 1.6 G/DL (3.4-5.0) L Globulin 3.3 g/dL Albumin/Globulin Ratio 0.5 (1.0-2.7) L Amylase Level 25 U/L (25-115) Lipase 103 U/L (73-393) Plan Problems: (1) Jaundice Assessment & Plan: hx cholecystitis s/p cholecystostomy tube. tube now draining minimal. now with jaundice. lft's abnormal, t bili elevated, alk phos elevated no abd pain -CT A/P -Abdominal ultrasound - Impression: Nondilated common bile duct, but mild intrahepatic biliary ductal dilatation and striking thickening and increased echogenicity of the biliary ductal hernandez. Findings are suspicious for ascending cholangitis Cholecystostomy tube within the gallbladder, which is nondistended Ascites fluid, also previously demonstrated bilateral pleural effusions, drainage catheter within left pleural effusion IVF IV Abx trend labs GI for ERCP (2) Lower extremity edema Assessment & Plan: left foot edema right okay eval for DVT studies Rich Kiran Jul 31, 2018 15:17
--- NOTE | 2018-07-31 15:45 | NUR ---
NURSE NOTES: THORAVENT DRAINED, 800CC YELLOW/KAVON COLORED OUTPUT. PATIENT C/O PAIN, RECEIVED PRN PAIN MEDICATION ORDER. ORDER TO BE ADDED BY PRIMARY RN.
--- NOTE | 2018-07-31 15:55 | NUR ---
*-* INSURANCE *-* CLINICALS AND REVIEW FAXED TO: [facility] TRKING# [id number] NCM: [id number] P- [phone]...ASK FOR TRS TO DEPT F- [phone]
[2018-07-31 16:00] VITALS: BP 112/75
--- NOTE | 2018-07-31 16:02 | Diagnostic Imaging Report ---
CLINICAL INDICATION:Chest and abdominal pain TECHNIQUE: Patient ingested oral contrast. No IV contrast, per referring physician request. Spiral acquisitions obtained through the chest, abdomen, and pelvis. Multiplanar reconstructions were generated. Total dose length product 716.58 mGycm. CTDIvol(s) 11.47 mGy. Radiation dose was minimized using automated exposure control COMPARISON: Chest CT angiogram dated 06/17/2018, abdomen pelvis CT dated 06/24/2018 FINDINGS Chest: Again demonstrated are bilateral large pleural effusions. The pleural on the left contains a chronic pleural drainage catheter which appears to be in satisfactory position. The large right pleural effusion appears slightly smaller than on the prior study. There is complete compressive atelectasis of both lower lobes and a significant portion of the right upper lobe, minimally of the right middle lobe. The aerated portions of the lung appear largely clear, with occasional areas of slight subsegmental atelectasis or groundglass opacity. There is a noncalcified right upper lobe nodule measuring 3 mm in diameter, image 35 of series 5, which appears to be visible previously. The heart size is normal. There is minimal pericardial fluid. No mediastinal or hilar mass or adenopathy is demonstrated. The bones are unremarkable. No axillary or chest wall mass or adenopathy demonstrated. The esophagus is unremarkable. Abdomen pelvis: Interim placement of a percutaneous drainage catheter in the gallbladder, appearing well positioned currently. The gallbladder is nondistended. Lack of IV contrast limits assessment of the solid organs. The liver demonstrates no gross focal abnormality. There is suggestion of wall thickening of the common bile duct, which is mildly distended, somewhat more so than on the previous exam. No definite choledocholithiasis demonstrated. The pancreas, spleen, adrenals, left kidney are unremarkable. Subcentimeter low-attenuation right renal lesion is again demonstrated, better seen on the prior exam. No renal or ureteral calculi, hydronephrosis, or hydroureter. No retroperitoneal or mesenteric mass or adenopathy. Uterus and ovaries are not visualized. The bladder is nondistended. Previously demonstrated De Santiago catheter is no longer evident. Again demonstrated is ascites fluid, as well as considerable congestion of the mesenteric fat. The intraperitoneal fluid appears similar in extent to the previous exam. The mesenteric congestion appears more severe. There are prominent mesenteric root lymph nodes, not clearly evident previously. There are enlarged peripancreatic lymph nodes, likewise not clearly evident previously. The appendix is not definitely visualized, but no definite findings to suggest acute appendicitis evident. There is equivocal mild wall thickening of the ascending colon. No small bowel distention is demonstrated. Contrast has traversed the entirety of the small bowel and is seen as far distally as the sigmoid colon. No definite small bowel wall thickening. No free intraperitoneal gas demonstrated. There is diffuse edema of the bilateral flank subcutaneous fat. This appears similar in extent to the prior exam. IMPRESSION: Large bilateral pleural effusions. That on the left is present despite a chronic drainage catheter in position. This may reflect lack of recent drainage, versus catheter malfunction Compressive atelectasis of both lower lobes and portions of the upper lobes, secondary to the above Minimal pericardial fluid Percutaneous drainage catheter within the gallbladder, which is now decompressed. Catheter appears well-positioned Wall thickening of the common bile duct, which is mildly distended. This suggests cholangitis, also suggested on recent ultrasound. Note that similar findings are described on the prior CT. Ascites fluid, also previously demonstrated and not significantly changed Mesenteric congestion, may be slightly increased from the prior exam Mesenteric root and peripancreatic lymphadenopathy. Nonspecific as regards etiology, could be reactive or neoplastic. This is a new finding Equivocal mild wall thickening of the ascending colon, could indicate colitis if real. Diffuse edema of the bilateral flank subcutaneous fat, similar to previous study. Prior hysterectomy Subcentimeter right renal lesion, too small to characterize, most likely benign simple cyst. No further follow-up necessary The CT scanner at [facility] is accredited by the [employer] and the scans are performed using protocols designed to limit radiation exposure to as low as reasonably achievable to attain images of sufficient resolution adequate for diagnostic evaluation.
[2018-07-31] MEDS ORDERED: Heparin 5000 units/ml inj IV ONE (17:00)
[2018-07-31] MEDS ORDERED: Heparin 5000 units/ml inj IV SCH (17:30)
[2018-07-31 17:32] LABS: BASOPHILS % (AUTO) 1.1 % (0.0-2.0); EOSINOPHILS % (AUTO) 0.7 % (0.0-3.0); HEMATOCRIT 34.1 % (37.0-47.0); HEMOGLOBIN 11.5 G/DL (12.0-16.0); LYMPHOCYTES % (AUTO) 8.5 % (20.0-45.0); MEAN CORPUSCULAR VOLUME 90 FL (80-99); MONOCYTES % (AUTO) 5.4 % (1.0-10.0); NEUTROPHILS % (AUTO) 84.3 % (45.0-75.0); PLATELET COUNT 608 K/UL (150-450); RED BLOOD COUNT 3.77 M/UL (4.20-5.40); RED CELL DISTRIBUTION WIDTH 15.8 % (11.6-14.8)
[2018-07-31] MEDS: Morphine Sulfate 2mg/ml Inj(IV/IM USE ONLY) IVP PRN (18:35)
[2018-07-31] MEDS: Heparin 25,000u/D5W 500ml 500 ML IV SCH (18:43)
--- NOTE | 2018-07-31 18:45 | History and Physical Report ---
DATE OF ADMISSION: 07/30/2018 CHIEF COMPLAINT: Jaundice and shortness of breath. HISTORY OF PRESENT ILLNESS: The patient is an unfortunate 72-year-old female. She has history of metastatic ovarian carcinoma and cholecystitis. She was recently hospitalized with jaundice and cholecystitis. She had placement of a drain. She was transferred to the emergency room with complaints of worsening jaundice, malaise, and weakness. Upon evaluation in the emergency room, the patient was clearly jaundiced. Her bilirubin was 10 with a direct of 8.2. She does have history of cholecystostomy drain that apparently had minimal output. She has bilateral catheters in the chest noted with serosanguineous drainage. There are no reports of any fever, chills, or chest pain. PAST MEDICAL HISTORY: As above. PAST SURGICAL HISTORY: Includes an ex-lap. CURRENT MEDICATIONS: Reconciled and reviewed. ALLERGIES: None. FAMILY HISTORY: Unknown. SOCIAL HISTORY: There is no known history of tobacco, ethanol, or drugs. She has a POLST that indicates the patient is Do Not Resuscitate. REVIEW OF SYSTEMS: GENERAL: Positive malaise and weakness. HEENT: No headaches. CARDIOPULMONARY: No chest pain or shortness of breath. GASTROINTESTINAL: No nausea or vomiting. GENITOURINARY: No urgency or frequency. MUSCULOSKELETAL: No joint pain or swelling. NEUROLOGIC: No evidence of seizures. PHYSICAL EXAMINATION: VITAL SIGNS: Temperature 98.1, pulse 100, respirations 18, blood pressure 111/72. GENERAL: The patient is a well-developed and chronically ill-appearing female. HEENT: She is icteric and jaundiced. NECK: Supple. HEART: Regular rate and rhythm. LUNGS: Clear. ABDOMEN: Soft. EXTREMITIES: No clubbing or cyanosis. There is slight edema of the left foot noted. LABORATORY DATA: Sodium 132, potassium 3.6, chloride 96, bicarbonate 24, BUN 16, creatinine 0.4. Bilirubin was 10, AST 125, ALT 114, alkaline phosphatase 1495, 1.9. ASSESSMENT: This is an unfortunate elderly female with history of metastatic ovarian cancer, admitted with complaints of jaundice likely secondary to an obstructed cholecystostomy drain. PLAN: 1. Cholangiogram per Surgery. 2. Broad-spectrum IV antibiotics. 3. Gentle hydration. 4. Check a duplex of the leg. 5. Overall prognosis remains poor. Rashad Garcia M.D. DR: ROBERT JOB#: [id number] CC:
--- NOTE | 2018-07-31 19:46 | NUR ---
HAND-OFF: Report given to KOFI Falcon.
[2018-07-31 20:00] VITALS: BP 106/72
--- NOTE | 2018-07-31 23:00 | Consultation ---
DATE OF CONSULTATION: 07/30/2018 CARDIOLOGY CONSULTATION CONSULTING PHYSICIAN: Faisal Rollins M.D. REQUESTING PHYSICIAN: Rashad Garcia M.D. REASON FOR CONSULTATION: Evaluate indication for continued anticoagulation. HISTORY OF PRESENT ILLNESS: This is a 72-year-old Chinese female with metastatic ovarian cancer and malignant ascites as well as malignant pleural effusions. She has a cholecystostomy tube in place as well as a PleurX catheter in her left lung space. She has been convalescing at a intermediate facility. She was recently started on anticoagulation as well. She was transferred to the hospital for evaluation of progressive weakness, lethargy, and jaundice. I have been asked to address continued anticoagulation in this clinical setting. PAST MEDICAL HISTORY: Metastatic ovarian carcinoma, malignant ascites, cholecystitis, and hypoalbuminemia. ALLERGIES: None. MEDICATIONS: Reviewed and reconciled. SOCIAL HISTORY: Negative for smoking, alcohol, or substance abuse. FAMILY HISTORY: Noncontributory. ADVANCE DIRECTIVES: DNR. REVIEW OF SYSTEMS: No fevers or chills. No visual disturbance or hearing loss. No history of asthma. No recent cough or congestion. No history of myocardial infarction. She has had paracentesis. She does have pleural effusions with constant drainage from a PleurX catheter. There is no history of kidney failure. There is no history of seizure or stroke. There is no known history of diabetes or thyroid disorder. She is on apixaban recently started at the intermediate facility. PHYSICAL EXAMINATION: VITAL SIGNS: Afebrile, blood pressure 111/72, pulse 100, respiratory rate 18, and oxygen saturation on room air 93% to 98%. GENERAL: Cachectic. HEENT: Scleral icterus is noted. Oropharynx clear. NECK: Supple. Jugular venous pressure elevated. LUNGS: Diminished breath sounds. PleurX catheter site clean. CARDIAC: Regular rhythm. Rapid rate. Normal S1 and S2 with no murmur. ABDOMEN: Mild ascites and mild tenderness. Cholecystostomy drain is noted. EXTREMITIES: With 1+ edema on the left. Distal pulses palpable. There is no skin breakdown. NEUROLOGIC: Nonfocal. There is no asterixis. LABORATORY DATA: Sodium 132, potassium 3.6, chloride 96, bicarbonate 24, BUN 16, creatinine 0.4, and glucose 112. Liver function tests grossly elevated. AST and ALT 125 and 114 respectively and alkaline phosphatase 1495. Albumin 1.9. Pro-natriuretic peptide 155. Troponin negative. White count is 10.6, hemoglobin 11.6, and platelet count is 530,000. Urinalysis with few white cells. IMPRESSION: 1. Anticoagulation with apixaban, likely related to DVT of the left lower extremity. 2. Chronic left lung pleural effusion with PleurX catheter drainage. 3. Jaundice, suggesting obstruction and cholangitis. 4. Metastatic ovarian carcinoma. 5. Severe protein-calorie malnutrition and hypoalbuminemia. 6. Anemia of chronic disease. PLAN: 1. Drainage of PleurX catheter. 2. CT of the abdomen to assess for obstruction. 3. Continue anticoagulation pending results of venous duplex scan. 4. May consider IV heparin instead of apixaban in case of need for any GI intervention. 5. Nutritional support. 6. Pain control. 7. Continue DNR based on advance directives. Faisal Rollins M.D. DR: ANDREA JOB#: [id number] CC:
--- NOTE | 2018-07-31 23:30 | Progress Note ---
CARDIOLOGY PROGRESS NOTE DATE: 07/31/2018 SUBJECTIVE: The patient had imaging studies of her abdomen done and was noted to have cholangitis. In addition PleurX was drained, 600 mL removed from left lung further. Venous duplex confirmed the left lower extremity acute DVT. The patient has no new complaints of chest pain or shortness of breath. OBJECTIVE: VITAL SIGNS: Blood pressure 122/77, heart rate 90 to 110, and respiratory rate 17. The patient is afebrile, T-max 99, LUNGS: Few rales. Diminished breath sounds in left. HEART: Regular rhythm and rate. Normal S1, S2. ABDOMEN: Slightly distended and ascitic but soft. PleurX and cholecystostomy tube sites are intact. EXTREMITIES: Reveal 1+ edema on the left lower extremity. LABORATORY DATA: Sodium 132, potassium 2.9, bicarb 26, BUN 13, and creatinine 0.4. Liver function studies remained unchanged essentially. Albumin is 1.6. IMPRESSION: 1. Cholangitis. 2. Chronic cholecystitis. 3. Metastatic ovarian carcinoma. 4. Malignant ascites. 5. Malignant left pleural effusion. 6. Obstructive transaminitis. 7. Hypokalemia. 8. Severe protein-calorie malnutrition and hypoalbuminemia. 9. Acute left lower extremity DVT. PLAN: 1. Discontinue apixaban, start IV heparin with PTT goal two times controlled, as the patient will require endoscopy and ERCP with possible stent placement. Apixaban can be subsequently resumed in place of the IV heparin, which is shorter acting. 2. Continue nutritional support. 3. Replace potassium. 4. Check magnesium. 5. Antimicrobials. 6. Pain control. Faisal Rollins M.D. DR: LETICIA JOB#: [id number] CC:
[2018-08-01] VITALS: BP 108/64
--- NOTE | 2018-08-01 02:18 | NUR ---
NURSE NOTES: Spoke to pipeline pharmacist regarding new PTT result of 89. Told to keep the current heparin dose and repeat PTT at 0600 today. Carried out.
[2018-08-01 04:00] VITALS: BP 113/83
--- NOTE | 2018-08-01 04:00 | NUR ---
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 Room changed to 415 to 409.
[2018-08-01] MEDS: Piperacillin/Tazobactam 3.375 GM in D5W 110 ML IVPB SCH ×3 (05:58→21:14)
[2018-08-01 06:36] LABS: BASOPHILS % (AUTO) 0.9 % (0.0-2.0); EOSINOPHILS % (AUTO) 0.9 % (0.0-3.0); HEMATOCRIT 34.1 % (37.0-47.0); HEMOGLOBIN 11.3 G/DL (12.0-16.0); LYMPHOCYTES % (AUTO) 8.5 % (20.0-45.0); MEAN CORPUSCULAR VOLUME 92 FL (80-99); MONOCYTES % (AUTO) 6.4 % (1.0-10.0); NEUTROPHILS % (AUTO) 83.3 % (45.0-75.0); PLATELET COUNT 601 K/UL (150-450); RED BLOOD COUNT 3.68 M/UL (4.20-5.40); RED CELL DISTRIBUTION WIDTH 16.1 % (11.6-14.8); WHITE BLOOD COUNT 10.5 K/UL (4.8-10.8)
--- NOTE | 2018-08-01 07:00 | NUR ---
NURSE NOTES: phone call received from pharmacy, no dosage change needed with new PTT result at 0600.
[2018-08-01 07:10] LABS: ALANINE AMINOTRANSFERASE 128 U/L (12-78); ALBUMIN 1.6 G/DL (3.4-5.0); ALBUMIN/GLOBULIN RATIO 0.5 (1.0-2.7); ALKALINE PHOSPHATASE 1330 U/L (46-116); ANION GAP 10 mmol/L (5-15); ASPARTATE AMINO TRANSFERASE 157 U/L (15-37); BILIRUBIN,TOTAL 11.3 MG/DL (0.2-1.0); BLOOD UREA NITROGEN 12 mg/dL (7-18); CALCIUM 8.2 MG/DL (8.5-10.1); CARBON DIOXIDE 24 MMOL/L (21-32); CHLORIDE 99 MMOL/L (98-107); CREATININE 0.3 MG/DL (0.55-1.30); POTASSIUM 3.3 MMOL/L (3.5-5.1); SODIUM 132 MMOL/L (136-145)
[2018-08-01 07:17] LABS: BILIRUBIN,DIRECT 9.5 MG/DL (0.0-0.3)
--- NOTE | 2018-08-01 07:35 | NUR ---
HAND-OFF: Report given to Philippe KIRBY.
--- NOTE | 2018-08-01 07:42 | NUR ---
NURSE NOTES: PT AXOX4, CALM, RESTING IN BED. DENIES PAIN AT THIS TIME. RIGHT UPPER QUADRANT WITH CHOLECYSTECTOMY TUBE, DRAINING DARK BROWN FLUID BY GRAVITY. LEFT CHEST PLEURX INTACT WITH TRANSPARENT DRESSING. EDUCATED MEAT PRESS OPERATOR LIGHT. IN NO APPARENT DISTRESS AT THIS TIME. WILL CONTINUE TO MONITOR.
[2018-08-01 08:00] VITALS: BP 103/68
--- NOTE | 2018-08-01 08:14 | NUR ---
NURSE NOTES: RN SPOKE TO DR FAUST AND MADE AWARE OF POTASSIUM LEVEL 3.3 TODAY. PER MD, HE WILL CHECK AND PUT IN ORDERS.
--- NOTE | 2018-08-01 08:16 | General Progress Note ---
Assessment/Plan Problem List: (1) Cholecystitis ICD Codes: K81.9 - Cholecystitis, unspecified SNOMED: 91360218 (2) UTI (urinary tract infection) ICD Codes: N39.0 - Urinary tract infection, site not specified SNOMED: 27384666 (3) Jaundice ICD Codes: R17 - Unspecified jaundice SNOMED: 22011275 (4) Cancer, metastatic ICD Codes: C79.9 - Secondary malignant neoplasm of unspecified site SNOMED: 346693090 (5) Episode of generalized weakness ICD Codes: R53.1 - Weakness SNOMED: 11100027 Status: stable Assessment/Plan abx monitor output from biliary drain cholangiogram per surgery if not output from drain consider replacement heparin drip poor prognosis dnr Subjective ROS Limited/Unobtainable: No Constitutional: Reports: malaise, weakness HEENT: Reports: no symptoms Cardiovascular: Reports: no symptoms Respiratory: Reports: shortness of breath Gastrointestinal/Abdominal: Reports: no symptoms Genitourinary: Reports: no symptoms Neurologic/Psychiatric: Reports: no symptoms Endocrine: Reports: no symptoms Hematologic/Lymphatic: Reports: anemia Allergies: Coded Allergies: No Known Allergies (Unverified , 06/17/18) All Systems: reviewed and negative except above Subjective +jaundice. pleurx drained yesterday 800cc. appears more comfortable. 100cc output from biliary drain Objective Last 24 Hour Vital Signs Date Time Temp Pulse Resp B/P (MAP) Pulse Ox O2 Delivery O2 Flow Rate FiO2 08/01/18 04:00 97.5 91 17 113/83 (93) 91 08/01/18 00:00 98.0 94 18 108/64 (79) 90 07/31/18 21:00 Room Air 07/31/18 20:00 97.3 94 18 106/72 (83) 93 07/31/18 19:05 98.5 07/31/18 16:00 98.5 90 19 112/75 (87) 96 07/31/18 09:00 Room Air Intake and Output 07/31/18 08/01/18 19:00 07:00 Intake Total 682.5 ml 702.636 ml Balance 682.5 ml 702.636 ml Intake Oral 50 ml IV Total 82.5 ml 652.636 ml Other 600 ml # Voids 3 2 Laboratory Tests 07/31/18 17:10: White Blood Count 10.0, Red Blood Count 3.77L, Hemoglobin 11.5L, Hematocrit 34.1L, Mean Corpuscular Volume 90, Mean Corpuscular Hemoglobin 30.5, Mean Corpuscular Hemoglobin Concent 33.7, Red Cell Distribution Width 15.8H, Platelet Count 608H, Mean Platelet Volume 4.1L, Neutrophils (%) (Auto) 84.3H, Lymphocytes (%) (Auto) 8.5L, Monocytes (%) (Auto) 5.4, Eosinophils (%) (Auto) 0.7, Basophils (%) (Auto) 1.1, Activated Partial Thromboplast Time 28 08/01/18 00:45: Activated Partial Thromboplast Time 89H 08/01/18 05:50: White Blood Count 10.5, Red Blood Count 3.68L, Hemoglobin 11.3L, Hematocrit 34.1L, Mean Corpuscular Volume 92, Mean Corpuscular Hemoglobin 30.6, Mean Corpuscular Hemoglobin Concent 33.1, Red Cell Distribution Width 16.1H, Platelet Count 601H, Mean Platelet Volume 4.7L, Neutrophils (%) (Auto) 83.3H, Lymphocytes (%) (Auto) 8.5L, Monocytes (%) (Auto) 6.4, Eosinophils (%) (Auto) 0.9, Basophils (%) (Auto) 0.9, Activated Partial Thromboplast Time 70H, Sodium Level 132L, Potassium Level 3.3L, Chloride Level 99, Carbon Dioxide Level 24, Anion Gap 10, Blood Urea Nitrogen 12, Creatinine 0.3L, Estimat Glomerular Filtration Rate , Glucose Level 116H, Calcium Level 8.2L, Magnesium Level 1.7L, Total Bilirubin 11.3H, Direct Bilirubin 9.5H, Aspartate Amino Transf (AST/SGOT) 157H, Alanine Aminotransferase (ALT/SGPT) 128H, Alkaline Phosphatase 1330H, Total Protein 4.8L, Albumin 1.6L, Globulin 3.2, Albumin/Globulin Ratio 0.5L Height (Feet): 5 Height (Inches): 0.00 Weight (Pounds): 108 General Appearance: WD/WN, cachetic, thin EENT: PERRL/EOMI Neck: non-tender, supple Cardiovascular: normal rate Respiratory/Chest: lungs clear, normal breath sounds Abdomen: normal bowel sounds, non tender, soft, no organomegaly Edema: no edema noted Arm (L), no edema noted Arm (R), no edema noted Leg (L), no edema noted Leg (R), no edema noted Pedal (L), no edema noted Pedal (R), no edema noted Generalized Skin: jaundice Rashad Garcia MD Aug 01, 2018 08:16
[2018-08-01] MEDS: Ferrous Sulfate 300 MG/5 ML UDC ORAL SCH (08:18)
[2018-08-01] MEDS: Multivitamin w/Minerals tab ORAL SCH (08:18)
[2018-08-01] MEDS: Morphine Sulfate 2mg/ml Inj(IV/IM USE ONLY) IVP PRN ×2 (08:59→20:45)
--- NOTE | 2018-08-01 10:44 | NUR ---
NURSE NOTES: DR FAUST MADE AWARE OF MAGNESIUM LEVEL 1.7 TODAY, WITH ORDERS FOR MAGNESIUM 1GM IV X2 ONE TIME ORDER.
[2018-08-01 12:00] VITALS: BP 117/68
[2018-08-01 16:00] VITALS: BP 109/65
[2018-08-01] MEDS ORDERED: Tubing IV Secondary IV ONE (16:37)
[2018-08-01] MEDS: Heparin 25,000u/D5W 500ml 500 ML IV SCH (17:33)
--- NOTE | 2018-08-01 18:57 | Surgery Progress Note ---
Surgery Progress Note Subjective Additional Comments no acute events. comfortable. jaundice. labs noted. Objective Last 24 Hour Vital Signs Date Time Temp Pulse Resp B/P (MAP) Pulse Ox O2 Delivery O2 Flow Rate FiO2 08/01/18 16:00 97.6 90 18 109/65 (80) 94 08/01/18 12:00 97.8 87 19 117/68 (84) 93 08/01/18 09:00 Room Air 08/01/18 08:00 98.7 105 20 103/68 (80) 92 08/01/18 04:00 97.5 91 17 113/83 (93) 91 08/01/18 00:00 98.0 94 18 108/64 (79) 90 07/31/18 21:00 Room Air 07/31/18 20:00 97.3 94 18 106/72 (83) 93 07/31/18 19:05 98.5 I&O Intake and Output 07/31/18 08/01/18 18:59 06:59 Intake Total 682.5 ml 582.5 ml Balance 682.5 ml 582.5 ml Intake Oral 50 ml IV Total 82.5 ml 532.5 ml Other 600 ml # Voids 3 2 Dressing: dry Wound: clean Drains: other Cardiovascular: RSR Respiratory: clear Abdomen: soft, non-tender, present bowel sounds, other Extremities: no cyanosis Laboratory Tests Test 08/01/18 00:45 08/01/18 05:50 Activated Partial Thromboplast Time 89 SEC (23-33) H 70 SEC (23-33) H White Blood Count 10.5 K/UL (4.8-10.8) Red Blood Count 3.68 M/UL (4.20-5.40) L Hemoglobin 11.3 G/DL (12.0-16.0) L Hematocrit 34.1 % (37.0-47.0) L Mean Corpuscular Volume 92 FL (80-99) Mean Corpuscular Hemoglobin 30.6 PG (27.0-31.0) Mean Corpuscular Hemoglobin Concent 33.1 G/DL (32.0-36.0) Red Cell Distribution Width 16.1 % (11.6-14.8) H Platelet Count 601 K/UL (150-450) H Mean Platelet Volume 4.7 FL (6.5-10.1) L Neutrophils (%) (Auto) 83.3 % (45.0-75.0) H Lymphocytes (%) (Auto) 8.5 % (20.0-45.0) L Monocytes (%) (Auto) 6.4 % (1.0-10.0) Eosinophils (%) (Auto) 0.9 % (0.0-3.0) Basophils (%) (Auto) 0.9 % (0.0-2.0) Sodium Level 132 MMOL/L (136-145) L Potassium Level 3.3 MMOL/L (3.5-5.1) L Chloride Level 99 MMOL/L (98-107) Carbon Dioxide Level 24 MMOL/L (21-32) Anion Gap 10 mmol/L (5-15) Blood Urea Nitrogen 12 mg/dL (7-18) Creatinine 0.3 MG/DL (0.55-1.30) L Estimat Glomerular Filtration Rate mL/min (>60) Glucose Level 116 MG/DL (74-106) H Calcium Level 8.2 MG/DL (8.5-10.1) L Magnesium Level 1.7 MG/DL (1.8-2.4) L Total Bilirubin 11.3 MG/DL (0.2-1.0) H Direct Bilirubin 9.5 MG/DL (0.0-0.3) H Aspartate Amino Transf (AST/SGOT) 157 U/L (15-37) H Alanine Aminotransferase (ALT/SGPT) 128 U/L (12-78) H Alkaline Phosphatase 1330 U/L (46-116) H Total Protein 4.8 G/DL (6.4-8.2) L Albumin 1.6 G/DL (3.4-5.0) L Globulin 3.2 g/dL Albumin/Globulin Ratio 0.5 (1.0-2.7) L Plan Problems: (1) Jaundice Assessment & Plan: hx cholecystitis s/p cholecystostomy tube. tube now draining minimal. now with jaundice. lft's abnormal, t bili elevated, alk phos elevated no abd pain -CT A/P -Abdominal ultrasound - Impression: Nondilated common bile duct, but mild intrahepatic biliary ductal dilatation and striking thickening and increased echogenicity of the biliary ductal hernandez. Findings are suspicious for ascending cholangitis Cholecystostomy tube within the gallbladder, which is nondistended Ascites fluid, also previously demonstrated bilateral pleural effusions, drainage catheter within left pleural effusion Large bilateral pleural effusions. That on the left is present despite a chronic drainage catheter in position. This may reflect lack of recent drainage , versus catheter malfunction Compressive atelectasis of both lower lobes and portions of the upper lobes, secondary to the above Minimal pericardial fluid Percutaneous drainage catheter within the gallbladder , which is now decompressed. Catheter appears well-positioned Wall thickening of the common bile duct, which is mildly distended. This suggests cholangitis, also suggested on recent ultrasound. Note that similar findings are described on the prior CT. Ascites fluid, also previously demonstrated and not significantly changed Mesenteric congestion, may be slightly increased from the prior exam Mesenteric root and peripancreatic lymphadenopathy. Nonspecific as regards etiology, could be reactive or neoplastic. This is a new finding Equivocal mild wall thickening of the ascending colon, could indicate colitis if real. Diffuse edema of the bilateral flank subcutaneous fat, similar to previous study. Prior hysterectomy Subcentimeter right renal lesion, too small to characterize, most likely benign simple cyst. No further follow-up necessary IVF IV Abx trend labs GI for ERCP friday cont tube / drain care (2) Lower extremity edema Assessment & Plan: left foot edema right okay eval for DVT studies Rich Kiran Aug 01, 2018 18:57
--- NOTE | 2018-08-01 19:19 | NUR ---
HAND-OFF: Report given to JUAN MIGUEL NIELSEN RN.
[2018-08-01 20:00] VITALS: BP 103/58
--- NOTE | 2018-08-01 20:00 | NUR ---
NURSE NOTES: Received patient in bed. On RA, no SOB, no acute distress. LFA IV intact patent running heparin drip with same dose. No episode of bleeding or new bruising noted. RH IV intact, patent running fluids. R cholecystostomy tube draining small amount of dark rohit fluids. Bed in lowest position, locked, alarms on. Call light in reach. Pt c/o mild pain on abd, requesting pain med by bedtime. Will follow up.
--- NOTE | 2018-08-01 20:24 | Cardiology Report ---
APPROVED REPORT EKG Measurement Heart [id number] Normal sinus rhythm Low voltage QRS Nonspecific ST and T wave abnormality Abnormal ECG
--- NOTE | 2018-08-01 20:35 | General Progress Note ---
Assessment/Plan Assessment/Plan Assessment/Plan Problem List: (1) Cancer, metastatic ICD Codes: C79.9 - Secondary malignant neoplasm of unspecified site SNOMED: 476038764 (2) Jaundice ICD Codes: R17 - Unspecified jaundice SNOMED: 89644305 (3) Abdominal pain ICD Codes: R10.9 - Unspecified abdominal pain SNOMED: 51591311 (4) Cholecystitis ICD Codes: K81.9 - Cholecystitis, unspecified SNOMED: 70575008 (5) Dehydration Assessment/Plan d/w surgical team cholecystostomy tube not draining significant rise in TB since last admission will plan ERCP on Friday abx fu labs Subjective Allergies: Coded Allergies: No Known Allergies (Unverified , 06/17/18) Subjective NAD comfortable Objective Last 24 Hour Vital Signs Date Time Temp Pulse Resp B/P (MAP) Pulse Ox O2 Delivery O2 Flow Rate FiO2 08/01/18 16:00 97.6 90 18 109/65 (80) 94 08/01/18 12:00 97.8 87 19 117/68 (84) 93 08/01/18 09:00 Room Air 08/01/18 08:00 98.7 105 20 103/68 (80) 92 08/01/18 04:00 97.5 91 17 113/83 (93) 91 08/01/18 00:00 98.0 94 18 108/64 (79) 90 07/31/18 21:00 Room Air Intake and Output 07/31/18 08/01/18 18:59 06:59 Intake Total 682.5 ml 582.5 ml Balance 682.5 ml 582.5 ml Intake Oral 50 ml IV Total 82.5 ml 532.5 ml Other 600 ml # Voids 3 2 Laboratory Tests 08/01/18 00:45: Activated Partial Thromboplast Time 89H 08/01/18 05:50: Activated Partial Thromboplast Time 70H, White Blood Count 10.5, Red Blood Count 3.68L, Hemoglobin 11.3L, Hematocrit 34.1L, Mean Corpuscular Volume 92, Mean Corpuscular Hemoglobin 30.6, Mean Corpuscular Hemoglobin Concent 33.1, Red Cell Distribution Width 16.1H, Platelet Count 601H, Mean Platelet Volume 4.7L, Neutrophils (%) (Auto) 83.3H, Lymphocytes (%) (Auto) 8.5L, Monocytes (%) (Auto) 6.4, Eosinophils (%) (Auto) 0.9, Basophils (%) (Auto) 0.9, Sodium Level 132L, Potassium Level 3.3L, Chloride Level 99, Carbon Dioxide Level 24, Anion Gap 10, Blood Urea Nitrogen 12, Creatinine 0.3L, Estimat Glomerular Filtration Rate , Glucose Level 116H, Calcium Level 8.2L, Magnesium Level 1.7L, Total Bilirubin 11.3H, Direct Bilirubin 9.5H, Aspartate Amino Transf (AST/SGOT) 157H, Alanine Aminotransferase (ALT/SGPT) 128H, Alkaline Phosphatase 1330H, Total Protein 4.8L , Albumin 1.6L, Globulin 3.2, Albumin/Globulin Ratio 0.5L Height (Feet): 5 Height (Inches): 0.00 Weight (Pounds): 108 Objective Thin Jaundiced woman NCAT Supple CTA RRR Soft ND NT, (+) B/l drains no edema Lakeisha Klein MD Aug 01, 2018 20:35
[2018-08-02] VITALS: BP 107/71
--- NOTE | 2018-08-02 02:15 | Progress Note ---
CARDIOLOGY PROGRESS NOTE DATE: 08/01/2018 SUBJECTIVE: The patient had her PleurX catheter drained yesterday of approximately 800 mL fluid. The biliary drain continues to drain. She remains jaundiced. OBJECTIVE: VITAL SIGNS: Blood pressure 113/83, pulse 91, respirations 17, and afebrile. LUNGS: Bilateral breath sounds. Diminished at the left base. HEART: Regular rhythm and rate. Normal S1, S2. ABDOMEN: Soft. 1+ edema, left greater than right lower extremity. IMPRESSION: 1. Cholangitis. 2. Metastatic carcinoma of the ovaries. 3. Malignant ascites. 4. Malignant pleural effusion with PleurX catheter drainage. 5. Acute DVT of left lower extremity. PLAN: 1. Await ERCP and probable stent placement. 2. IV heparin in the interim. Resume Eliquis once procedures are all complete. 3. Drainage efforts from cholecystostomy tube. 4. IV fluid hydration. 5. Pain control. 6. DNR appropriate for advanced directives in this clinical setting. Faisal Rollins M.D. DR: LETICIA JOB#: [id number] CC:
[2018-08-02 04:00] VITALS: BP 103/70
[2018-08-02 04:55] LABS: INR 1.1 (0.9-1.1)
[2018-08-02] MEDS: Morphine Sulfate 2mg/ml Inj(IV/IM USE ONLY) IVP PRN ×4 (05:07→20:53)
[2018-08-02] MEDS: Piperacillin/Tazobactam 3.375 GM in D5W 110 ML IVPB SCH ×3 (05:10→22:03)
--- NOTE | 2018-08-02 05:30 | NUR ---
NURSE NOTES: Spoke to pharmacist regarding new PTT rate of 79. Will keep current heparin dose and order next PTT at tomorrow 0400.
[2018-08-02 07:14] LABS: ALANINE AMINOTRANSFERASE 150 U/L (12-78); ALBUMIN 1.4 G/DL (3.4-5.0); ALBUMIN/GLOBULIN RATIO 0.5 (1.0-2.7); ALKALINE PHOSPHATASE 1294 U/L (46-116); ANION GAP 8 mmol/L (5-15); ASPARTATE AMINO TRANSFERASE 180 U/L (15-37); BILIRUBIN,TOTAL 10.5 MG/DL (0.2-1.0); BLOOD UREA NITROGEN 10 mg/dL (7-18); CALCIUM 7.1 MG/DL (8.5-10.1); CARBON DIOXIDE 22 MMOL/L (21-32); CHLORIDE 104 MMOL/L (98-107); CREATININE 0.5 MG/DL (0.55-1.30); POTASSIUM 5.5 MMOL/L (3.5-5.1); SODIUM 134 MMOL/L (136-145)
--- NOTE | 2018-08-02 07:15 | NUR ---
HAND-OFF: Report given to Rajendra KIRBY.
[2018-08-02 07:18] LABS: BILIRUBIN,DIRECT 9.2 MG/DL (0.0-0.3)
--- NOTE | 2018-08-02 07:19 | NUR ---
NURSE NOTES: received report from KOFI Ruvalcaba.patient in bed alert, verbally responsive. no respiratory distress noted. IV LFA, RH intact. running IV. bed in the lowest position. call light within reach. will continue to monitor.
[2018-08-02 08:00] VITALS: BP 125/77
[2018-08-02] MEDS: Multivitamin w/Minerals tab ORAL SCH (08:33)
[2018-08-02] MEDS: Ferrous Sulfate 300 MG/5 ML UDC ORAL SCH (08:33)
[2018-08-02 12:00] VITALS: BP 101/70
--- NOTE | 2018-08-02 13:07 | NUR ---
CASE MANAGEMENT: REVIEW SI: ACUTE DVT OF LEFT LOWER EXTREMITY . MALIGNANT PLEURAL EFFUSION . MALIGNANT ASCITES T 97.1 HR 100 RR 16 BP 101/70 SAT 96% ROOM AIR NA 134 AST 180 ALT 150 ALK PHOS 12.94 IS: HEPARIN GTT D5 NS w/KCl 20mEq IVF @75ML/HR ZOSYN IV Q8HR MED/SURG STATUS DCP: PATIENT IS FROM [facility] PLAN: ERCP
[2018-08-02 16:00] VITALS: BP 106/73
--- NOTE | 2018-08-02 17:22 | General Progress Note ---
Assessment/Plan Problem List: (1) Cholecystitis ICD Codes: K81.9 - Cholecystitis, unspecified SNOMED: 61267029 (2) UTI (urinary tract infection) ICD Codes: N39.0 - Urinary tract infection, site not specified SNOMED: 72224913 (3) Jaundice ICD Codes: R17 - Unspecified jaundice SNOMED: 40723744 (4) Cancer, metastatic ICD Codes: C79.9 - Secondary malignant neoplasm of unspecified site SNOMED: 385256085 (5) Episode of generalized weakness ICD Codes: R53.1 - Weakness SNOMED: 84653447 Status: stable, not improved Assessment/Plan abx monitor output from biliary drain ercp heparin drip kayexylate x 1 poor prognosis dnr Subjective ROS Limited/Unobtainable: No Constitutional: Reports: malaise, weakness HEENT: Reports: no symptoms Cardiovascular: Reports: no symptoms Respiratory: Reports: no symptoms Gastrointestinal/Abdominal: Reports: no symptoms Genitourinary: Reports: no symptoms Neurologic/Psychiatric: Reports: no symptoms Endocrine: Reports: no symptoms Hematologic/Lymphatic: Reports: anemia Allergies: Coded Allergies: No Known Allergies (Unverified , 06/17/18) All Systems: reviewed and negative except above Subjective +jaundice. feels better. no fever or chills. minimal output from biliary drain. Objective Last 24 Hour Vital Signs Date Time Temp Pulse Resp B/P (MAP) Pulse Ox O2 Delivery O2 Flow Rate FiO2 08/02/18 16:00 97.1 93 18 106/73 (84) 95 08/02/18 12:00 97.6 88 16 101/70 (80) 96 08/02/18 09:00 Room Air 08/02/18 08:00 97.1 100 16 125/77 (93) 96 08/02/18 04:00 97.9 94 18 103/70 (81) 95 08/02/18 00:00 97.7 96 17 107/71 (83) 96 08/01/18 21:00 Room Air 08/01/18 20:00 97.5 93 18 103/58 (73) 95 Intake and Output 08/01/18 08/02/18 19:00 07:00 Intake Total 1098.996 ml 1217.5 ml Output Total 35 ml 200 ml Balance 1063.996 ml 1017.5 ml Intake Oral 240 ml 180 ml IV Total 858.996 ml 1037.5 ml Output Urine Total 200 ml Other 35 ml # Voids 2 1 Laboratory Tests 08/02/18 04:20: Prothrombin Time 11.4, Prothromb Time International Ratio 1.1, Activated Partial Thromboplast Time 79H, Sodium Level 134L, Potassium Level 5.5#H, Chloride Level 104, Carbon Dioxide Level 22, Anion Gap 8, Blood Urea Nitrogen 10 , Creatinine 0.5#L, Estimat Glomerular Filtration Rate , Glucose Level 291#H, Calcium Level 7.1L, Total Bilirubin 10.5H, Direct Bilirubin 9.2H, Aspartate Amino Transf (AST/SGOT) 180H, Alanine Aminotransferase (ALT/SGPT) 150H, Alkaline Phosphatase 1294H, Total Protein 4.0L, Albumin 1.4L, Globulin 2.6, Albumin/Globulin Ratio 0.5L Height (Feet): 5 Height (Inches): 0.00 Weight (Pounds): 108 General Appearance: WD/WN, alert Neck: supple Cardiovascular: normal rate Respiratory/Chest: chest wall non-tender, lungs clear, normal breath sounds Abdomen: normal bowel sounds, non tender, soft, no organomegaly Edema: trace edema Neurologic: dandy tender II-XII grossly normal, alert, oriented x 3, responsive Rasahd Garcia MD Aug 02, 2018 17:22
--- NOTE | 2018-08-02 17:45 | NUR ---
NURSE NOTES: Dr. Anderson ordered Kayexalate 30gm once po. K level 505 on 08/02/2018. notified dr. anderson patient has order of D5 NS w/KCL 20meq 1000. waiting for any further order and will f/u
--- NOTE | 2018-08-02 17:48 | NUR ---
NURSE NOTES: no kayexalte 30gm med available at this time. spoke to Marita, Pharmacy. med will be delivered to the unit soon.
[2018-08-02] MEDS ORDERED: Sodium Polystyrene Sulfonate 15gm Powder ORAL ONE (18:00)
--- NOTE | 2018-08-02 18:03 | NUR ---
NURSE NOTES: tried to call to dr. fortune regarding order D5NS w/kcl 20meq 75ml/hr. did not anser the phone at this time.
[2018-08-02] MEDS: Heparin 25,000u/D5W 500ml 500 ML IV SCH (18:08)
--- NOTE | 2018-08-02 18:31 | NUR ---
NURSE NOTES: received order from DR. Garcia. NM D5NS [id number]. order noted and carried out.
--- NOTE | 2018-08-02 19:08 | NUR ---
HAND-OFF: Report given to KOFI Ruvalcaba.
[2018-08-02 20:00] VITALS: BP_SYST 103; BP_SYST 108; BP_DIAS 59; BP_DIAS 72
--- NOTE | 2018-08-02 20:00 | NUR ---
NURSE NOTES: Received patient in bed, on RA, no SOB, no acute distress. LFA IV running heparin drip, no episode of bleeding or new bruising noted. R hand IV intact, patent running TKO. L trunk thoravent intact with dry dressing. R trunk cholecystostomy tube draining minimal amt of dark brown fluid by gravity. Bed in lowest position, locked, alarms on. Call light in reach. Will hold heparin drip and start NPO at midnight for ERCP tomorrow.
--- NOTE | 2018-08-02 20:02 | General Progress Note ---
Assessment/Plan Assessment/Plan Assessment/Plan Problem List: (1) Cancer, metastatic ICD Codes: C79.9 - Secondary malignant neoplasm of unspecified site SNOMED: 309954162 (2) Jaundice ICD Codes: R17 - Unspecified jaundice SNOMED: 34283993 (3) Abdominal pain ICD Codes: R10.9 - Unspecified abdominal pain SNOMED: 05110242 (4) Cholecystitis ICD Codes: K81.9 - Cholecystitis, unspecified SNOMED: 16919452 (5) Dehydration Assessment/Plan cholecystostomy tube not draining significant rise in TB since last admission ERCP planned for am abx fu labs Subjective Allergies: Coded Allergies: No Known Allergies (Unverified , 06/17/18) Subjective NAD comfortable for ERCP tomorrow Objective Last 24 Hour Vital Signs Date Time Temp Pulse Resp B/P (MAP) Pulse Ox O2 Delivery O2 Flow Rate FiO2 08/02/18 16:00 97.1 93 18 106/73 (84) 95 08/02/18 12:00 97.6 88 16 101/70 (80) 96 08/02/18 09:00 Room Air 08/02/18 08:00 97.1 100 16 125/77 (93) 96 08/02/18 04:00 97.9 94 18 103/70 (81) 95 08/02/18 00:00 97.7 96 17 107/71 (83) 96 08/01/18 21:00 Room Air Intake and Output 08/01/18 08/02/18 19:00 07:00 Intake Total 1098.996 ml 1217.5 ml Output Total 35 ml 200 ml Balance 1063.996 ml 1017.5 ml Intake Oral 240 ml 180 ml IV Total 858.996 ml 1037.5 ml Output Urine Total 200 ml Other 35 ml # Voids 2 1 Laboratory Tests 08/02/18 04:20: Prothrombin Time 11.4, Prothromb Time International Ratio 1.1, Activated Partial Thromboplast Time 79H, Sodium Level 134L, Potassium Level 5.5#H, Chloride Level 104, Carbon Dioxide Level 22, Anion Gap 8, Blood Urea Nitrogen 10 , Creatinine 0.5#L, Estimat Glomerular Filtration Rate , Glucose Level 291#H, Calcium Level 7.1L, Total Bilirubin 10.5H, Direct Bilirubin 9.2H, Aspartate Amino Transf (AST/SGOT) 180H, Alanine Aminotransferase (ALT/SGPT) 150H, Alkaline Phosphatase 1294H, Total Protein 4.0L, Albumin 1.4L, Globulin 2.6, Albumin/Globulin Ratio 0.5L Height (Feet): 5 Height (Inches): 0.00 Weight (Pounds): 108 Objective Thin Jaundiced woman NCAT Supple CTA RRR Soft ND NT, (+) B/l drains no edema Lakeisha Klein MD Aug 02, 2018 20:02
--- NOTE | 2018-08-02 21:35 | Surgery Progress Note ---
Surgery Progress Note Subjective Additional Comments labs improved ERCP in AM. exam unchanged comfortable. jaundice Objective Last 24 Hour Vital Signs Date Time Temp Pulse Resp B/P (MAP) Pulse Ox O2 Delivery O2 Flow Rate FiO2 08/02/18 16:00 97.1 93 18 106/73 (84) 95 08/02/18 12:00 97.6 88 16 101/70 (80) 96 08/02/18 09:00 Room Air 08/02/18 08:00 97.1 100 16 125/77 (93) 96 08/02/18 04:00 97.9 94 18 103/70 (81) 95 08/02/18 00:00 97.7 96 17 107/71 (83) 96 I&O Intake and Output 08/01/18 08/02/18 18:59 06:59 Intake Total 1219.132 ml 1217.5 ml Output Total 35 ml 200 ml Balance 1184.132 ml 1017.5 ml Intake Oral 240 ml 180 ml IV Total 979.132 ml 1037.5 ml Output Urine Total 200 ml Other 35 ml # Voids 2 1 Dressing: dry Wound: clean Drains: other Cardiovascular: RSR Respiratory: clear Abdomen: soft, flat, non-tender, other Extremities: no tenderness, no cyanosis Laboratory Tests Test 08/02/18 04:20 Prothrombin Time 11.4 SEC (9.30-11.50) Prothromb Time International Ratio 1.1 (0.9-1.1) Activated Partial Thromboplast Time 79 SEC (23-33) H Sodium Level 134 MMOL/L (136-145) L Potassium Level 5.5 MMOL/L (3.5-5.1) #H Chloride Level 104 MMOL/L (98-107) Carbon Dioxide Level 22 MMOL/L (21-32) Anion Gap 8 mmol/L (5-15) Blood Urea Nitrogen 10 mg/dL (7-18) Creatinine 0.5 MG/DL (0.55-1.30) #L Estimat Glomerular Filtration Rate mL/min (>60) Glucose Level 291 MG/DL (74-106) #H Calcium Level 7.1 MG/DL (8.5-10.1) L Total Bilirubin 10.5 MG/DL (0.2-1.0) H Direct Bilirubin 9.2 MG/DL (0.0-0.3) H Aspartate Amino Transf (AST/SGOT) 180 U/L (15-37) H Alanine Aminotransferase (ALT/SGPT) 150 U/L (12-78) H Alkaline Phosphatase 1294 U/L (46-116) H Total Protein 4.0 G/DL (6.4-8.2) L Albumin 1.4 G/DL (3.4-5.0) L Globulin 2.6 g/dL Albumin/Globulin Ratio 0.5 (1.0-2.7) L Plan Problems: (1) Jaundice Assessment & Plan: hx cholecystitis s/p cholecystostomy tube. tube now draining minimal. now with jaundice. lft's abnormal, t bili elevated, alk phos elevated no abd pain -CT A/P -Abdominal ultrasound - Impression: Nondilated common bile duct, but mild intrahepatic biliary ductal dilatation and striking thickening and increased echogenicity of the biliary ductal hernandez. Findings are suspicious for ascending cholangitis Cholecystostomy tube within the gallbladder, which is nondistended Ascites fluid, also previously demonstrated bilateral pleural effusions, drainage catheter within left pleural effusion Large bilateral pleural effusions. That on the left is present despite a chronic drainage catheter in position. This may reflect lack of recent drainage , versus catheter malfunction Compressive atelectasis of both lower lobes and portions of the upper lobes, secondary to the above Minimal pericardial fluid Percutaneous drainage catheter within the gallbladder , which is now decompressed. Catheter appears well-positioned Wall thickening of the common bile duct, which is mildly distended. This suggests cholangitis, also suggested on recent ultrasound. Note that similar findings are described on the prior CT. Ascites fluid, also previously demonstrated and not significantly changed Mesenteric congestion, may be slightly increased from the prior exam Mesenteric root and peripancreatic lymphadenopathy. Nonspecific as regards etiology, could be reactive or neoplastic. This is a new finding Equivocal mild wall thickening of the ascending colon, could indicate colitis if real. Diffuse edema of the bilateral flank subcutaneous fat, similar to previous study. Prior hysterectomy Subcentimeter right renal lesion, too small to characterize, most likely benign simple cyst. No further follow-up necessary IVF IV Abx trend labs GI for ERCP friday cont tube / drain care (2) Lower extremity edema Assessment & Plan: left foot edema right okay eval for DVT studies Rich Kiran Aug 02, 2018 21:35
[2018-08-03] VITALS (12 sets, daily range): BP systolic 101–135; BP diastolic 61–85
[2018-08-03] MEDS: Morphine Sulfate 2mg/ml Inj(IV/IM USE ONLY) IVP PRN ×4 (04:30→21:06)
[2018-08-03 05:14] LABS: ALANINE AMINOTRANSFERASE 178 U/L (12-78); ALBUMIN 1.6 G/DL (3.4-5.0); ALBUMIN/GLOBULIN RATIO 0.6 (1.0-2.7); ALKALINE PHOSPHATASE 1410 U/L (46-116); ANION GAP 9 mmol/L (5-15); ASPARTATE AMINO TRANSFERASE 189 U/L (15-37); BILIRUBIN,TOTAL 13.5 MG/DL (0.2-1.0); BLOOD UREA NITROGEN 12 mg/dL (7-18); CALCIUM 8.2 MG/DL (8.5-10.1); CARBON DIOXIDE 23 MMOL/L (21-32); CHLORIDE 99 MMOL/L (98-107); CREATININE 0.4 MG/DL (0.55-1.30); SODIUM 131 MMOL/L (136-145)
[2018-08-03 05:19] LABS: BILIRUBIN,DIRECT 11.3 MG/DL (0.0-0.3)
[2018-08-03] MEDS: Piperacillin/Tazobactam 3.375 GM in D5W 110 ML IVPB SCH ×3 (06:15→21:58)
--- NOTE | 2018-08-03 07:06 | NUR ---
HAND-OFF: Report given to Jeffrey KIRBY.
--- NOTE | 2018-08-03 07:08 | NUR ---
NURSE NOTES: received report from KOFI Ruvalcaba. patient in bed. alert, verbally responsive. no respiratory distress noted. no c/o pain at this time. toravent tube on rt flank, biliary tube on lt abd no drainage. IV intact. NPO and hold heparin for ERCP today. bed in the lowest position. call light within reach. will continue to monitor.
--- NOTE | 2018-08-03 08:00 | General Progress Note ---
Assessment/Plan Problem List: (1) Cholecystitis ICD Codes: K81.9 - Cholecystitis, unspecified SNOMED: 12659438 (2) UTI (urinary tract infection) ICD Codes: N39.0 - Urinary tract infection, site not specified SNOMED: 87519321 (3) Jaundice ICD Codes: R17 - Unspecified jaundice SNOMED: 98129965 (4) Cancer, metastatic ICD Codes: C79.9 - Secondary malignant neoplasm of unspecified site SNOMED: 401129795 (5) Episode of generalized weakness ICD Codes: R53.1 - Weakness SNOMED: 48707529 Status: stable, progressing Assessment/Plan abx monitor output from biliary drain ercp today heparin drip follow up labs poor prognosis dnr Subjective ROS Limited/Unobtainable: No Constitutional: Reports: malaise, weakness HEENT: Reports: no symptoms Cardiovascular: Reports: no symptoms Respiratory: Reports: no symptoms Gastrointestinal/Abdominal: Reports: no symptoms Genitourinary: Reports: no symptoms Neurologic/Psychiatric: Reports: no symptoms Endocrine: Reports: no symptoms Hematologic/Lymphatic: Reports: no symptoms Allergies: Coded Allergies: No Known Allergies (Unverified , 06/17/18) All Systems: reviewed and negative except above Subjective +jaundice. feels better. no fever or chills. minimal output from biliary drain. gi and surgery noted. npo for ercp Objective Last 24 Hour Vital Signs Date Time Temp Pulse Resp B/P (MAP) Pulse Ox O2 Delivery O2 Flow Rate FiO2 08/03/18 04:00 98.3 103 18 101/61 (74) 94 08/03/18 00:00 98.0 100 18 131/71 (91) 94 08/02/18 21:00 Room Air 08/02/18 20:00 97.7 99 18 108/72 (84) 92 08/02/18 16:00 97.1 93 18 106/73 (84) 95 08/02/18 12:00 97.6 88 16 101/70 (80) 96 08/02/18 09:00 Room Air 08/02/18 08:00 97.1 100 16 125/77 (93) 96 Intake and Output 08/02/18 08/03/18 19:00 07:00 Intake Total 800.0 ml 110.0 ml Output Total 10 ml Balance 790.0 ml 110.0 ml Intake Oral 240 ml IV Total 560.0 ml 110.0 ml Other 10 ml # Voids 1 Laboratory Tests 08/03/18 04:00: White Blood Count [Pending], Red Blood Count [Pending], Hemoglobin [Pending], Hematocrit [Pending], Mean Corpuscular Volume [Pending], Mean Corpuscular Hemoglobin [Pending], Mean Corpuscular Hemoglobin Concent [Pending], Red Cell Distribution Width [Pending], Platelet Count [Pending], Mean Platelet Volume [ Pending], Neutrophils (%) (Auto) [Pending], Lymphocytes (%) (Auto) [Pending], Monocytes (%) (Auto) [Pending], Eosinophils (%) (Auto) [Pending], Basophils (%) (Auto) [Pending], Activated Partial Thromboplast Time 30, Sodium Level 131L, Potassium Level 4.0, Chloride Level 99, Carbon Dioxide Level 23, Anion Gap 9, Blood Urea Nitrogen 12, Creatinine 0.4L, Estimat Glomerular Filtration Rate , Glucose Level 89#, Calcium Level 8.2L, Total Bilirubin 13.5H, Direct Bilirubin 11.3H, Aspartate Amino Transf (AST/SGOT) 189H, Alanine Aminotransferase (ALT/ SGPT) 178H, Alkaline Phosphatase 1410H, Total Protein 4.3L, Albumin 1.6L, Globulin 2.7, Albumin/Globulin Ratio 0.6L Height (Feet): 5 Height (Inches): 0.00 Weight (Pounds): 108 Objective General Appearance: WD/WN, alert. thin. +jaundice Neck: supple Cardiovascular: normal rate Respiratory/Chest: chest wall non-tender, lungs clear, normal breath sounds Abdomen: normal bowel sounds, non tender, soft, no organomegaly Edema: trace edema Neurologic: pharmacovigilance specialist II-XII grossly normal, alert, oriented x 3, responsive Rashad Garcia MD Aug 03, 2018 08:00
[2018-08-03] MEDS: Ferrous Sulfate 300 MG/5 ML UDC ORAL SCH (08:44)
[2018-08-03] MEDS: Multivitamin w/Minerals tab ORAL SCH (08:44)
--- NOTE | 2018-08-03 09:56 | General Progress Note ---
Assessment/Plan Problem List: (1) Cancer, metastatic ICD Codes: C79.9 - Secondary malignant neoplasm of unspecified site SNOMED: 148156492 (2) Jaundice ICD Codes: R17 - Unspecified jaundice SNOMED: 00395861 (3) Abdominal pain ICD Codes: R10.9 - Unspecified abdominal pain SNOMED: 22834817 (4) Cholecystitis ICD Codes: K81.9 - Cholecystitis, unspecified SNOMED: 43129505 (5) Dehydration ICD Codes: E86.0 - Dehydration SNOMED: 94740648 Assessment/Plan d/w surgical team cholecystostomy tube not draining significant rise in TB since last admission will plan ERCP fo today abx fu labs Subjective ROS Limited/Unobtainable: No Allergies: Coded Allergies: No Known Allergies (Unverified , 06/17/18) Subjective C/O ABD PAIN Objective Last 24 Hour Vital Signs Date Time Temp Pulse Resp B/P (MAP) Pulse Ox O2 Delivery O2 Flow Rate FiO2 08/03/18 09:00 Room Air 08/03/18 08:00 97.9 100 19 116/68 (84) 99 08/03/18 04:00 98.3 103 18 101/61 (74) 94 08/03/18 00:00 98.0 100 18 131/71 (91) 94 08/02/18 21:00 Room Air 08/02/18 20:00 97.7 99 18 108/72 (84) 92 08/02/18 16:00 97.1 93 18 106/73 (84) 95 08/02/18 12:00 97.6 88 16 101/70 (80) 96 Intake and Output 08/02/18 08/03/18 19:00 07:00 Intake Total 800.0 ml 110.0 ml Output Total 10 ml Balance 790.0 ml 110.0 ml Intake Oral 240 ml IV Total 560.0 ml 110.0 ml Other 10 ml # Voids 1 Laboratory Tests 08/03/18 04:00: White Blood Count [Pending], Red Blood Count [Pending], Hemoglobin [Pending], Hematocrit [Pending], Mean Corpuscular Volume [Pending], Mean Corpuscular Hemoglobin [Pending], Mean Corpuscular Hemoglobin Concent [Pending], Red Cell Distribution Width [Pending], Platelet Count [Pending], Mean Platelet Volume [ Pending], Neutrophils (%) (Auto) [Pending], Lymphocytes (%) (Auto) [Pending], Monocytes (%) (Auto) [Pending], Eosinophils (%) (Auto) [Pending], Basophils (%) (Auto) [Pending], Activated Partial Thromboplast Time 30, Sodium Level 131L, Potassium Level 4.0, Chloride Level 99, Carbon Dioxide Level 23, Anion Gap 9, Blood Urea Nitrogen 12, Creatinine 0.4L, Estimat Glomerular Filtration Rate , Glucose Level 89#, Calcium Level 8.2L, Total Bilirubin 13.5H, Direct Bilirubin 11.3H, Aspartate Amino Transf (AST/SGOT) 189H, Alanine Aminotransferase (ALT/ SGPT) 178H, Alkaline Phosphatase 1410H, Total Protein 4.3L, Albumin 1.6L, Globulin 2.7, Albumin/Globulin Ratio 0.6L Height (Feet): 5 Height (Inches): 0.00 Weight (Pounds): 108 General Appearance: no apparent distress EENT: scleral icterus Neck: non-tender, normal alignment, supple Abdomen: non tender Tramaine Miller MD Aug 03, 2018 09:56
--- NOTE | 2018-08-03 11:29 | Pre-Procedure Note/Attestation ---
Pre-Procedure Note/Attestation Complete Prior to Procedure Planned Procedure: not applicable Procedure Narrative: ercp Indications for Procedure Pre-Operative Diagnosis: jaundice Attestation I attest that I discussed the nature of the procedure; its benefits; risks and complications; and alternatives (and the risks and benefits of such alternatives ), prior to the procedure, with the patient (or the patient's legal policy services representative). I attest that, if there was a reasonable possibility of needing a blood transfusion, the patient (or the patient's legal policy services representative) was given the [facility] standardized written summary, pursuant to the Marek Herrin Blood Safety Act ([place] Health and Safety Code # 1645, as amended). I attest that I re-evaluated the patient just prior to the surgery and that there has been no change in the patient's H&P, except as documented below: Tramaine Miller MD Aug 03, 2018 11:29
[2018-08-03] MEDS ORDERED: Propofol 200mg/20ml IV ONE (12:00)
[2018-08-03] MEDS ORDERED: LR 1000ml ONE (12:00)
[2018-08-03] MEDS ORDERED: Lidocaine 1% MPF 10mg/ml 5ml ONE (12:00)
[2018-08-03] MEDS ORDERED: Succinylcholine 20mg/ml 10ml vial ONE (12:00)
[2018-08-03] MEDS ORDERED: NS 500ML IVPB ONE (12:00)
--- NOTE | 2018-08-03 12:00 | NUR ---
NURSE NOTES: patient left unit for ERCP procedure. keep NPO. hold heparin drip since last midnight. fair condition. IV on LFA 24g, RH 20g both intact.
[2018-08-03] MEDS ORDERED: Iothalamate Meglumine 60% 30ML INJ ONE (12:20)
--- NOTE | 2018-08-03 12:58 | Endoscopy Procedure Note ---
Endoscopy Procedure Note General Indication for Procedure: juandice Procedures Performed: ERCP Operative Findings/Diagnosis: CBD sludge Specimen: none Pt Tolerated Procedure Well: Yes Estimated Blood Loss: none Anesthesia Anesthesiologist: ida Anesthesia: MAC Inserted Devices Implant(s) used?: No GI Core Measures 50 yrs or older w/o bx or poly: Not Applicable 10yrs. F/U not recommended: Not Applicable Tramaine Miller MD Aug 03, 2018 12:58
--- NOTE | 2018-08-03 13:08 | Immediate Post-Op Evaluation ---
Immediate Post-Op Evalulation Immediate Post-Op Evalulation Procedure: ERCP Date of Evaluation: Aug 03, 2018 Time of Evaluation: 13:00 IV Fluids: 250 Blood Pressure Systolic: 114 Blood Pressure Diastolic: 80 Pulse Rate: 92 Respiratory Rate: 14 O2 Sat by Pulse Oximetry: 98 Temperature (Fahrenheit): 98.1 Nausea: No Vomiting: No Complications none Patient Status: awake, reacts, patent Hydration Status: adequate Drug: none Kathleen Recinos CRNA Aug 03, 2018 13:08
--- NOTE | 2018-08-03 13:11 | Anethesia Preoperative Eval ---
Anesthesia Pre-op PMH/ROS General Date of Evaluation: Aug 03, 2018 Time of Evaluation: 12:00 Anesthesiologist: radha ASA Score: ASA 3 Mallampati Score Class I : Soft palate, uvula, fauces, pillars visible Class II: Soft palate, uvula, fauces visible Class III: Soft palate, base of uvula visible Class IV: Only hard plate visible Mallampati Classification: Class III Surgeon: paolo Diagnosis: choligitis Surgical Procedure: ERCP Anesthesia History: none Family History: no anesthesia problems Allergies: Coded Allergies: No Known Allergies (Unverified , 06/17/18) Medications: see eMAR Patient NPO?: Yes NPO Date: Aug 03, 2018 NPO Time: 00:01 Past Medical History Cardiovascular: Denies: HTN, CAD, GA, valve dz, arrhythmia, other Pulmonary: Reports: other; Denies: asthma, COPD, LIZETTE Gastrointestinal/Genitourinary: Reports: GERD, CRI Neurologic/Psychiatric: Denies: dementia, CVA, depression/anxiety, TIA, other Endocrine: Denies: DM, hypothyroidism, steroids, other HEENT: Denies: cataract (L), cataract (R), glaucoma, TABLE MOUNTAIN (L), TABLE MOUNTAIN (R), other Hematology/Immune: Reports: DVT, other - jaundice Musculoskeletal/Integumentary: Reports: other - ovarian ca mets; Denies: OA, RA, DJD, DDD, edema PMH Narrative: see H&P PSxH Narrative: see chart Anesthesia Pre-op Phys. Exam Physician Exam Last Vital Signs Date Time Temp Pulse Resp B/P (MAP) Pulse Ox O2 Delivery O2 Flow Rate FiO2 08/03/18 12:00 98.0 100 19 133/73 (93) 98 08/03/18 09:00 Room Air Constitutional: NAD Neurologic: CN 2-12 intact Cardiovascular: RRR Respiratory: CTA Airway Exam Mallampati Classification 2 Mallampati Score: Class II ROM: full Dentures: no upper, no lower Anesthesia Pre-op A/P Labs Hematology Test 08/03/18 04:00 White Blood Count Pending Red Blood Count Pending Hemoglobin Pending Hematocrit Pending Mean Corpuscular Volume Pending Mean Corpuscular Hemoglobin Pending Mean Corpuscular Hemoglobin Concent Pending Red Cell Distribution Width Pending Platelet Count Pending Mean Platelet Volume Pending Neutrophils (%) (Auto) Pending Lymphocytes (%) (Auto) Pending Monocytes (%) (Auto) Pending Eosinophils (%) (Auto) Pending Basophils (%) (Auto) Pending Coagulation Test 08/03/18 04:00 Activated Partial Thromboplast Time 30 SEC (23-33) Chemistry Test 08/03/18 04:00 Sodium Level 131 MMOL/L (136-145) L Potassium Level 4.0 MMOL/L (3.5-5.1) Chloride Level 99 MMOL/L (98-107) Carbon Dioxide Level 23 MMOL/L (21-32) Anion Gap 9 mmol/L (5-15) Blood Urea Nitrogen 12 mg/dL (7-18) Creatinine 0.4 MG/DL (0.55-1.30) L Estimat Glomerular Filtration Rate mL/min (>60) Glucose Level 89 MG/DL (74-106) # Calcium Level 8.2 MG/DL (8.5-10.1) L Total Bilirubin 13.5 MG/DL (0.2-1.0) H Direct Bilirubin 11.3 MG/DL (0.0-0.3) H Aspartate Amino Transf (AST/SGOT) 189 U/L (15-37) H Alanine Aminotransferase (ALT/SGPT) 178 U/L (12-78) H Alkaline Phosphatase 1410 U/L (46-116) H Total Protein 4.3 G/DL (6.4-8.2) L Albumin 1.6 G/DL (3.4-5.0) L Globulin 2.7 g/dL Albumin/Globulin Ratio 0.6 (1.0-2.7) L Risk Assessment & Plan Assessment: denies cp; Serbian speaking ; daughter consented Plan: general ETT Status Change Before Surgery: No Pre-Antibiotics Drug: none Kathleen Recinos CRNA Aug 03, 2018 13:11
[2018-08-03] MEDS ORDERED: fentaNYL 100 mcg/2 mL IV PRN (13:15)
--- NOTE | 2018-08-03 13:31 | NUR ---
*-* INSURANCE *-* UPDATED CLINICALS AND REVIEW FAXED TO: [facility] TRKING# [id number] NCM: JAZZY P- [phone]...ASK FOR TRS TO DEPT F- [phone]
--- NOTE | 2018-08-03 13:56 | Surgery Progress Note ---
Surgery Progress Note Subjective Additional Comments no acute events . ERCP without obstruction. noted drainage into cholecystostomy tube as well. lft's worsening. Objective Last 24 Hour Vital Signs Date Time Temp Pulse Resp B/P (MAP) Pulse Ox O2 Delivery O2 Flow Rate FiO2 08/03/18 13:34 98 14 116/83 97 Nasal Cannula 2 08/03/18 13:24 91 14 116/82 97 Nasal Cannula 2 08/03/18 13:17 91 14 110/85 98 Simple Mask 8 08/03/18 13:08 92 14 98 08/03/18 13:00 91 14 110/82 98 Simple Mask 8 08/03/18 12:55 92 14 112/84 98 Simple Mask 8 08/03/18 12:50 98.6 92 14 114/82 98 Simple Mask 8 08/03/18 12:00 98.0 100 19 133/73 (93) 98 08/03/18 09:00 Room Air 08/03/18 08:00 97.9 100 19 116/68 (84) 99 08/03/18 04:00 98.3 103 18 101/61 (74) 94 08/03/18 00:00 98.0 100 18 131/71 (91) 94 08/02/18 21:00 Room Air 08/02/18 20:00 97.7 99 18 108/72 (84) 92 08/02/18 16:00 97.1 93 18 106/73 (84) 95 I&O Intake and Output 08/02/18 08/03/18 19:00 07:00 Intake Total 800.0 ml 110.0 ml Output Total 10 ml Balance 790.0 ml 110.0 ml Intake Oral 240 ml IV Total 560.0 ml 110.0 ml Other 10 ml # Voids 1 Dressing: other Wound: other Drains: other Cardiovascular: RSR Respiratory: clear Abdomen: soft, non-tender, present bowel sounds, non-distended Extremities: no edema, no tenderness, no cyanosis Laboratory Tests Test 08/03/18 04:00 White Blood Count Pending Red Blood Count Pending Hemoglobin Pending Hematocrit Pending Mean Corpuscular Volume Pending Mean Corpuscular Hemoglobin Pending Mean Corpuscular Hemoglobin Concent Pending Red Cell Distribution Width Pending Platelet Count Pending Mean Platelet Volume Pending Neutrophils (%) (Auto) Pending Lymphocytes (%) (Auto) Pending Monocytes (%) (Auto) Pending Eosinophils (%) (Auto) Pending Basophils (%) (Auto) Pending Activated Partial Thromboplast Time 30 SEC (23-33) Sodium Level 131 MMOL/L (136-145) L Potassium Level 4.0 MMOL/L (3.5-5.1) Chloride Level 99 MMOL/L (98-107) Carbon Dioxide Level 23 MMOL/L (21-32) Anion Gap 9 mmol/L (5-15) Blood Urea Nitrogen 12 mg/dL (7-18) Creatinine 0.4 MG/DL (0.55-1.30) L Estimat Glomerular Filtration Rate mL/min (>60) Glucose Level 89 MG/DL (74-106) # Calcium Level 8.2 MG/DL (8.5-10.1) L Total Bilirubin 13.5 MG/DL (0.2-1.0) H Direct Bilirubin 11.3 MG/DL (0.0-0.3) H Aspartate Amino Transf (AST/SGOT) 189 U/L (15-37) H Alanine Aminotransferase (ALT/SGPT) 178 U/L (12-78) H Alkaline Phosphatase 1410 U/L (46-116) H Total Protein 4.3 G/DL (6.4-8.2) L Albumin 1.6 G/DL (3.4-5.0) L Globulin 2.7 g/dL Albumin/Globulin Ratio 0.6 (1.0-2.7) L Plan Problems: (1) Jaundice Assessment & Plan: hx cholecystitis s/p cholecystostomy tube. tube now draining minimal. now with jaundice. lft's abnormal, t bili elevated, alk phos elevated no abd pain -CT A/P -Abdominal ultrasound - Impression: Nondilated common bile duct, but mild intrahepatic biliary ductal dilatation and striking thickening and increased echogenicity of the biliary ductal hernandez. Findings are suspicious for ascending cholangitis Cholecystostomy tube within the gallbladder, which is nondistended Ascites fluid, also previously demonstrated bilateral pleural effusions, drainage catheter within left pleural effusion Large bilateral pleural effusions. That on the left is present despite a chronic drainage catheter in position. This may reflect lack of recent drainage , versus catheter malfunction Compressive atelectasis of both lower lobes and portions of the upper lobes, secondary to the above Minimal pericardial fluid Percutaneous drainage catheter within the gallbladder , which is now decompressed. Catheter appears well-positioned Wall thickening of the common bile duct, which is mildly distended. This suggests cholangitis, also suggested on recent ultrasound. Note that similar findings are described on the prior CT. Ascites fluid, also previously demonstrated and not significantly changed Mesenteric congestion, may be slightly increased from the prior exam Mesenteric root and peripancreatic lymphadenopathy. Nonspecific as regards etiology, could be reactive or neoplastic. This is a new finding Equivocal mild wall thickening of the ascending colon, could indicate colitis if real. Diffuse edema of the bilateral flank subcutaneous fat, similar to previous study. Prior hysterectomy Subcentimeter right renal lesion, too small to characterize, most likely benign simple cyst. No further follow-up necessary ERCP without obstruction. stent placed labs worsening. may need liver biopsy IVF IV Abx trend labs cont tube / drain care (2) Lower extremity edema Assessment & Plan: left foot edema right okay eval for DVT studies Rich Kiran Aug 03, 2018 13:56
[2018-08-03] MEDS ORDERED: Heparin 5000 units/ml inj IV SCH (14:30)
--- NOTE | 2018-08-03 14:30 | NUR ---
NURSE NOTES: spoke to yenny, Pharmacy for resume haparin drip order. pharmacy will put new order.
--- NOTE | 2018-08-03 14:39 | NUR ---
NURSE NOTES: patient back from ERCP with fair condition. sleeping. no respiratory distress noted. Sphintererostomy and sten replacement done. notifed Dr. carrillo and received order of clear liquid diet and resume heparin drip as protocol.
[2018-08-03] MEDS: Heparin 25,000u/D5W 500ml 500 ML IV SCH (14:50)
--- NOTE | 2018-08-03 15:41 | NUR ---
CASE MANAGEMENT:REVIEW 08/02/18 SI: CHOLECYSTITIS. UTI METASTATIC CANCER. DVT 97.1 100 16 125/77 96% ON RA K+5.5 GLUCOSE+291 CA-7.1 TBILI+10.5 DBILI+9.2 AST/ALT+180/150 IS: HEPARIN GTT KAYEXALATE PO X1 IV MORPHINE Q4HRS PRN : MED/SURG STATUS 4 EAST DCP: FROM [facility] 08/03/18 SI: CHOLECYSTITIS. UTI METASTATIC CANCER. DVT 98.0 14 116/83 97% ON 2L/NC NA-131 TBILI+13.5 DBILI+11.3 AST/ALT+189/178 IS: HEPARIN GTT KAYEXALATE PO X1 IV MORPHINE Q4HRS PRN : MED/SURG STATUS 4 EAST DCP: FROM [facility] PLAN: ERCP FOR TODAY
[2018-08-03 17:10] LABS: HEMATOCRIT 33.4 % (37.0-47.0); MEAN CORPUSCULAR VOLUME 93 FL (80-99); PLATELET COUNT 638 K/UL (150-450); RED CELL DISTRIBUTION WIDTH 16.3 % (11.6-14.8); WHITE BLOOD COUNT 18.2 K/UL (4.8-10.8)
--- NOTE | 2018-08-03 19:26 | NUR ---
HAND-OFF: Report given to KOFI Mcfadden.
--- NOTE | 2018-08-03 19:30 | NUR ---
NURSE NOTES: Patient awake in bed, medicated for pain per AM RN. With Left flank thoravent intact and to be drained by radio every . With Right biliary tube intact, connected to drainage bag. With heparin drip. For PTT at 2100 today. Instructed the use of call light. Call light and needs in reach. Bed in lowest position, lock engaged and alarm on. Will continue to monitor. Addendum: 08/04/18 at 0008 by VENKATESH HENDRICKSON RN RN per AM RN, Left flank dressing by radio q .
[2018-08-04] VITALS: BP 113/68
[2018-08-04 04:00] VITALS: BP 107/75
[2018-08-04 04:51] LABS: HEMATOCRIT 31.1 % (37.0-47.0); HEMOGLOBIN 10.3 G/DL (12.0-16.0); MEAN CORPUSCULAR VOLUME 93 FL (80-99); PLATELET COUNT 601 K/UL (150-450); RED BLOOD COUNT 3.32 M/UL (4.20-5.40); RED CELL DISTRIBUTION WIDTH 17.3 % (11.6-14.8); WHITE BLOOD COUNT 12.6 K/UL (4.8-10.8)
[2018-08-04] MEDS: Morphine Sulfate 2mg/ml Inj(IV/IM USE ONLY) IVP PRN ×4 (05:06→20:15)
[2018-08-04] MEDS: Piperacillin/Tazobactam 3.375 GM in D5W 110 ML IVPB SCH ×3 (05:10→22:13)
[2018-08-04 05:40] LABS: ALANINE AMINOTRANSFERASE 153 U/L (12-78); ALBUMIN 1.4 G/DL (3.4-5.0); ALBUMIN/GLOBULIN RATIO 0.4 (1.0-2.7); ALKALINE PHOSPHATASE 1290 U/L (46-116); ANION GAP 11 mmol/L (5-15); ASPARTATE AMINO TRANSFERASE 141 U/L (15-37); BILIRUBIN,TOTAL 14.8 MG/DL (0.2-1.0); BLOOD UREA NITROGEN 14 mg/dL (7-18); CALCIUM 8.1 MG/DL (8.5-10.1); CARBON DIOXIDE 22 MMOL/L (21-32); CHLORIDE 99 MMOL/L (98-107); CREATININE 0.4 MG/DL (0.55-1.30); POTASSIUM 3.6 MMOL/L (3.5-5.1); SODIUM 132 MMOL/L (136-145)
[2018-08-04 05:44] LABS: BILIRUBIN,DIRECT 12.5 MG/DL (0.0-0.3)
--- NOTE | 2018-08-04 07:47 | NUR ---
HAND-OFF: Report given to KOFI Romano.
--- NOTE | 2018-08-04 07:53 | NUR ---
NURSE NOTES: Patient received in stable condition, eating breakfast in bed. Alert and oriented, breathing unlabored on room air. Heparin drip running, IV patent and intact. Dressing on bilateral flanks c/d/i. Denies pain at this time. Pitting edema noted on left lower extremity due to DVT. Bed locked in low position. Call light placed within reach, will continue to monitor.
[2018-08-04 08:00] VITALS: BP 110/85
[2018-08-04] MEDS: Multivitamin w/Minerals tab ORAL SCH (08:17)
[2018-08-04] MEDS: Ferrous Sulfate 300 MG/5 ML UDC ORAL SCH (08:18)
--- NOTE | 2018-08-04 08:36 | General Progress Note ---
Assessment/Plan Problem List: (1) Cholecystitis ICD Codes: K81.9 - Cholecystitis, unspecified SNOMED: 32344745 (2) UTI (urinary tract infection) ICD Codes: N39.0 - Urinary tract infection, site not specified SNOMED: 64523654 (3) Jaundice ICD Codes: R17 - Unspecified jaundice SNOMED: 50410049 (4) Cancer, metastatic ICD Codes: C79.9 - Secondary malignant neoplasm of unspecified site SNOMED: 854810682 (5) Episode of generalized weakness ICD Codes: R53.1 - Weakness SNOMED: 55446061 Status: stable, progressing Assessment/Plan abx monitor output from biliary drain monitor lfts- trending up heparin drip follow up labs POC per GI/surgery poor prognosis dnr Subjective ROS Limited/Unobtainable: No Constitutional: Reports: malaise, weakness HEENT: Reports: no symptoms Cardiovascular: Reports: no symptoms Respiratory: Reports: no symptoms Gastrointestinal/Abdominal: Reports: no symptoms Genitourinary: Reports: no symptoms Neurologic/Psychiatric: Reports: no symptoms Endocrine: Reports: no symptoms Hematologic/Lymphatic: Reports: anemia Allergies: Coded Allergies: No Known Allergies (Unverified , 06/17/18) All Systems: reviewed and negative except above Subjective +jaundice. no new complaints. s/p ercp and stent placement Objective Last 24 Hour Vital Signs Date Time Temp Pulse Resp B/P (MAP) Pulse Ox O2 Delivery O2 Flow Rate FiO2 08/04/18 04:00 97.6 107 16 107/75 (86) 94 08/04/18 00:00 97.5 109 16 113/68 (83) 96 08/03/18 21:00 Room Air 08/03/18 20:00 98.2 111 16 102/71 (81) 97 08/03/18 16:00 98.5 108 20 107/73 (84) 99 08/03/18 13:34 98 14 116/83 97 Nasal Cannula 2 08/03/18 13:24 91 14 116/82 97 Nasal Cannula 2 08/03/18 13:17 91 14 110/85 98 Simple Mask 8 08/03/18 13:08 92 14 98 08/03/18 13:00 91 14 110/82 98 Simple Mask 8 08/03/18 12:55 92 14 112/84 98 Simple Mask 8 08/03/18 12:50 98.6 92 14 114/82 98 Simple Mask 8 08/03/18 12:00 98.0 100 19 133/73 (93) 98 08/03/18 09:00 Room Air Intake and Output 08/03/18 08/04/18 19:00 07:00 Intake Total 770.544 ml 366.768 ml Balance 770.544 ml 366.768 ml Intake Oral 240 ml IV Total 530.544 ml 366.768 ml # Bowel Movements 2 Laboratory Tests 08/03/18 16:40: White Blood Count 18.2H, Red Blood Count 3.60L, Hemoglobin 11.0L, Hematocrit 33.4L, Mean Corpuscular Volume 93, Mean Corpuscular Hemoglobin 30.6, Mean Corpuscular Hemoglobin Concent 33.0, Red Cell Distribution Width 16.3H, Platelet Count 638H, Mean Platelet Volume 4.4L, Neutrophils (%) (Auto) , Lymphocytes (%) (Auto) , Monocytes (%) (Auto) , Eosinophils (%) (Auto) , Basophils (%) (Auto) , Differential Total Cells Counted 100, Neutrophils % ( Manual) 91H, Lymphocytes % (Manual) 3L, Monocytes % (Manual) 3, Eosinophils % ( Manual) 0, Basophils % (Manual) 0, Band Neutrophils 3, Platelet Estimate IncreasedH, Platelet Morphology Normal, Anisocytosis 1+ 08/03/18 21:04: Activated Partial Thromboplast Time 95H 08/04/18 04:20: White Blood Count 12.6H, Red Blood Count 3.32L, Hemoglobin 10.3L, Hematocrit 31.1L, Mean Corpuscular Volume 93, Mean Corpuscular Hemoglobin 31.1H, Mean Corpuscular Hemoglobin Concent 33.3, Red Cell Distribution Width 17.3H, Platelet Count 601H, Mean Platelet Volume 4.6L, Neutrophils (%) (Auto) , Lymphocytes (%) (Auto) , Monocytes (%) (Auto) , Eosinophils (%) (Auto) , Basophils (%) (Auto) , Activated Partial Thromboplast Time 78H, Sodium Level 132L, Potassium Level 3.6, Chloride Level 99, Carbon Dioxide Level 22, Anion Gap 11, Blood Urea Nitrogen 14, Creatinine 0.4L, Estimat Glomerular Filtration Rate , Glucose Level 101, Calcium Level 8.1L, Total Bilirubin 14.8H, Direct Bilirubin 12.5H, Aspartate Amino Transf (AST/SGOT) 141H, Alanine Aminotransferase (ALT/SGPT) 153H, Alkaline Phosphatase 1290H, Total Protein 4.6L , Albumin 1.4L, Globulin 3.2, Albumin/Globulin Ratio 0.4L Height (Feet): 5 Height (Inches): 0.00 Weight (Pounds): 108 Objective General Appearance: WD/WN, alert. thin. +jaundice Neck: supple Cardiovascular: normal rate Respiratory/Chest: chest wall non-tender, lungs clear, normal breath sounds Abdomen: normal bowel sounds, non tender, soft, no organomegaly Edema: trace edema Neurologic: waterfront director II-XII grossly normal, alert, oriented x 3, responsive Rashad Garcia MD Aug 04, 2018 08:36
--- NOTE | 2018-08-04 08:50 | General Progress Note ---
Assessment/Plan Problem List: (1) Cancer, metastatic ICD Codes: C79.9 - Secondary malignant neoplasm of unspecified site SNOMED: 574669038 (2) Jaundice ICD Codes: R17 - Unspecified jaundice SNOMED: 58249359 (3) Abdominal pain ICD Codes: R10.9 - Unspecified abdominal pain SNOMED: 55050813 (4) Cholecystitis ICD Codes: K81.9 - Cholecystitis, unspecified SNOMED: 16786155 (5) Dehydration ICD Codes: E86.0 - Dehydration SNOMED: 25535899 Assessment/Plan s/p ercp and biliary stent fu labs abx fu surg team recs Subjective ROS Limited/Unobtainable: Yes Allergies: Coded Allergies: No Known Allergies (Unverified , 06/17/18) Subjective C/O ABD PAIN Objective Last 24 Hour Vital Signs Date Time Temp Pulse Resp B/P (MAP) Pulse Ox O2 Delivery O2 Flow Rate FiO2 08/04/18 04:00 97.6 107 16 107/75 (86) 94 08/04/18 00:00 97.5 109 16 113/68 (83) 96 08/03/18 21:00 Room Air 08/03/18 20:00 98.2 111 16 102/71 (81) 97 08/03/18 16:00 98.5 108 20 107/73 (84) 99 08/03/18 13:34 98 14 116/83 97 Nasal Cannula 2 08/03/18 13:24 91 14 116/82 97 Nasal Cannula 2 08/03/18 13:17 91 14 110/85 98 Simple Mask 8 08/03/18 13:08 92 14 98 08/03/18 13:00 91 14 110/82 98 Simple Mask 8 08/03/18 12:55 92 14 112/84 98 Simple Mask 8 08/03/18 12:50 98.6 92 14 114/82 98 Simple Mask 8 08/03/18 12:00 98.0 100 19 133/73 (93) 98 08/03/18 09:00 Room Air Intake and Output 08/03/18 08/04/18 19:00 07:00 Intake Total 770.544 ml 366.768 ml Balance 770.544 ml 366.768 ml Intake Oral 240 ml IV Total 530.544 ml 366.768 ml # Bowel Movements 2 Laboratory Tests 08/03/18 16:40: White Blood Count 18.2H, Red Blood Count 3.60L, Hemoglobin 11.0L, Hematocrit 33.4L, Mean Corpuscular Volume 93, Mean Corpuscular Hemoglobin 30.6, Mean Corpuscular Hemoglobin Concent 33.0, Red Cell Distribution Width 16.3H, Platelet Count 638H, Mean Platelet Volume 4.4L, Neutrophils (%) (Auto) , Lymphocytes (%) (Auto) , Monocytes (%) (Auto) , Eosinophils (%) (Auto) , Basophils (%) (Auto) , Differential Total Cells Counted 100, Neutrophils % ( Manual) 91H, Lymphocytes % (Manual) 3L, Monocytes % (Manual) 3, Eosinophils % ( Manual) 0, Basophils % (Manual) 0, Band Neutrophils 3, Platelet Estimate IncreasedH, Platelet Morphology Normal, Anisocytosis 1+ 08/03/18 21:04: Activated Partial Thromboplast Time 95H 08/04/18 04:20: White Blood Count 12.6H, Red Blood Count 3.32L, Hemoglobin 10.3L, Hematocrit 31.1L, Mean Corpuscular Volume 93, Mean Corpuscular Hemoglobin 31.1H, Mean Corpuscular Hemoglobin Concent 33.3, Red Cell Distribution Width 17.3H, Platelet Count 601H, Mean Platelet Volume 4.6L, Neutrophils (%) (Auto) , Lymphocytes (%) (Auto) , Monocytes (%) (Auto) , Eosinophils (%) (Auto) , Basophils (%) (Auto) , Activated Partial Thromboplast Time 78H, Sodium Level 132L, Potassium Level 3.6, Chloride Level 99, Carbon Dioxide Level 22, Anion Gap 11, Blood Urea Nitrogen 14, Creatinine 0.4L, Estimat Glomerular Filtration Rate , Glucose Level 101, Calcium Level 8.1L, Total Bilirubin 14.8H, Direct Bilirubin 12.5H, Aspartate Amino Transf (AST/SGOT) 141H, Alanine Aminotransferase (ALT/SGPT) 153H, Alkaline Phosphatase 1290H, Total Protein 4.6L , Albumin 1.4L, Globulin 3.2, Albumin/Globulin Ratio 0.4L Height (Feet): 5 Height (Inches): 0.00 Weight (Pounds): 108 General Appearance: no apparent distress EENT: normal ENT inspection Neck: supple Cardiovascular: normal rate Respiratory/Chest: decreased breath sounds Abdomen: normal bowel sounds, non tender, soft Extremities: non-tender Tramaine Miller MD Aug 04, 2018 08:50
--- NOTE | 2018-08-04 09:06 | NUR ---
CASE MANAGEMENT:REVIEW 08/02/18 SI: CHOLECYSTITIS. UTI METASTATIC CANCER. DVT 97.1 100 16 125/77 96% ON RA K+5.5 GLUCOSE+291 CA-7.1 TBILI+10.5 DBILI+9.2 AST/ALT+180/150 IS: HEPARIN GTT KAYEXALATE PO X1 IV MORPHINE Q4HRS PRN : MED/SURG STATUS 4 EAST DCP: FROM [facility] 08/04/18 SI: CHOLECYSTITIS. UTI. JAUNDICED METASTATIC CANCER. DVT 97.5 109 16 113/68 96% ON RA WBC+12.6 H/H-10.3/31.1 TBILI+14.8 DBILI+12.5 AST/ALT+141/153 APTT+78 IS: HEPARIN GTT IV ZOSYN Q8HRS IV MORPHINE Q4HRS PRN : MED/SURG STATUS 4 EAST DCP: FROM [facility] PLAN: ERCP COMPLETED ~ SUGGESTIVE OF CHOLANGITIS REGULAR DIET POOR PROGNOSIS
[2018-08-04 12:00] VITALS: BP 113/67
--- NOTE | 2018-08-04 13:51 | Procedure Note ---
DATE OF PROCEDURE: 08/03/2018 SURGEON: Tramaine Miller M.D. REFERRING PHYSICIAN: Faisal Rollins M.D. PROCEDURE: ERCP with sphincterotomy, balloon sweep, and stent placement. ANESTHESIA: Per Kathleen WILBURN. INSTRUMENT: Olympus adult flexible ERCP scope. INDICATION: Jaundice. REASON FOR PROCEDURE: The procedure, risks, benefits, and possible consequences, including hemorrhage, aspiration, perforation and infection, and alternative treatments, were explained to the patient/legal guardian by Dr. Tramaine Miller and the patient/legal guardian understood and accepted these risks. PROCEDURE IN DETAIL: After informed consent was obtained and the patient was adequately sedated, the Olympus ERCP scope was advanced from the mouth into the second portion of duodenum. Using a sphincterotome, common bile duct was selectively cannulated. Initial cholangiogram showed mildly dilated common bile duct. There was some filling defect in the distal common bile duct, no obvious stone. Then over a guidewire, first we performed 95% sphincterotomy. Using a balloon to sweep the duct multiple times and removed some sludge from distal common bile duct. No active pus was seen. No obvious stone was seen. Given this elevation of bilirubin and unknown source and ovarian cancer with possible metastasis, we decided just to put a stent the common bile duct. Over a guidewire, a 10-[place] 7 cm stent was successfully placed in the distal common bile duct. The patient tolerated the procedure very well without any complication. SUMMARY OF FINDINGS: Status post ERCP with sphincterotomy, balloon sweep, sludge removal, and stent placement. RECOMMENDATIONS: 1. Resume diet. 2. Follow labs. 3. Follow Oncology recommendation. 4. Further imaging studies to evaluate for jaundice. I want to thank Dr. Faisal Rollins for this kind referral. Tramaine Miller M.D. DR: RUIZ JOB#: [id number] CC:
--- NOTE | 2018-08-04 13:51 | Progress Note ---
DATE: 08/03/2018 CARDIOLOGY PROGRESS NOTE SUBJECTIVE: The patient is planned for ERCP today to evaluate for obstruction in the setting of cholangitis. OBJECTIVE: VITAL SIGNS: Blood pressure 116/68, pulse 100, respirations 19, and afebrile. LUNGS: Diminished breath sounds. Left PleurX catheter. HEART: Regular rhythm and rate. Normal S1, S2. ABDOMEN: Soft, distended, and ascitic. EXTREMITIES: Trace edema. LABORATORY DATA: White count 18 and hemoglobin 11. Sodium 131, potassium 4, bicarb 23, BUN 12, and creatinine 0.4. Liver function studies remained elevated. Albumin 1.6. INR 1.1. IMPRESSION: 1. Cholangitis. 2. Possible obstructive biliary process. 3. Malignant pleural effusion. 4. Malignant ascites. 5. Metastatic ovarian carcinoma. 6. Paroxysmal atrial fibrillation. 7. Volume overload. 8. Acute DVT. PLAN: 1. Await ERCP. 2. PleurX catheter drainage based on infusion and output. 3. Antimicrobials. 4. DNR based on advance directives. 5. Resume anticoagulation following ERCP. Faisal Rollins M.D. DR: GENARO JOB#: [id number] CC:
--- NOTE | 2018-08-04 13:51 | Progress Note ---
DATE: 08/02/2018 SUBJECTIVE: The patient feels better. Still on full anticoagulation for DVT. Potassium elevation noted and Kayexalate given. Biliary drainage has decreased. PleurX catheter is clamped. OBJECTIVE: VITAL SIGNS: Blood pressure 106/72, pulse 93, respiratory rate 18, and afebrile. LUNGS: Diminished breath sounds. Few rhonchi. HEART: Regular rhythm and rate. Normal S1, S2. ABDOMEN: Soft, slightly distended and tender. EXTREMITIES: Trace edema. Jaundice noted. LABORATORY DATA: White count 10, hemoglobin 11. Sodium 134, potassium 5.5, BUN 10, creatinine 0.5. Magnesium yesterday 1.7. Albumin 1.4. ASSESSMENT: 1. Hyperbilirubinemia. 2. Cholangitis. 3. Metastatic ovarian carcinoma. 4. Malignant ascites. 5. Acute DVT. PLAN: 1. ERCP. 2. Hold heparin prior to procedure. 3. Antimicrobials. 4. Reassess PleurX catheter for drainage of pleural effusion over the next 24 to 48 hours. Faisal Rollins M.D. DR: LAW JOB#: [id number] CC:
--- NOTE | 2018-08-04 14:07 | NUR ---
RD ASSESSMENT & RECOMMENDATIONS SEE CARE ACTIVITY FOR COMPLETE ASSESSMENT DAILY ESTIMATED NEEDS: Needs based on Cancer 56kg 30-35 kcals/kg 1233-2438 total kcals 1-2 g protein/kg 56-112 g total protein 25-30 mL/kg 7429-9745 total fluid mLs NUTRITION DIAGNOSIS: * Increased kcal and protein needs r/t cancer, wasting as evidenced by pt h/o metastatic ovarian cancer s/p resection, w/ moderate-severe upper body wasting, pt reports progressive wt loss of >40lbs in the last few years. * Altered nutrition related lab values R/T liver dysfunction, clinical condition as evidenced by elev T bili (14.8 trend up), elev LFTs, low K (2.9-> wnl) CURRENT DIET:REGULAR PO DIET RECOMMENDATIONS: Liberalized REGULAR diet/ texture as tolerated or per STEP DOWN NURSE ADDITIONAL RECOMMENDATIONS: 1) Obtain a calibrated bed scale wt-> pt reports wt loss, +wasting 2) Consider STEP DOWN NURSE evaluation for appropriate texture 3) Monitor PO intake closely-> consider appetite stimulant if medically appropriate -> consistently poor PO prev admission, reports poor appetite, +wasting, 4) Monitor lytes, replete as needed 5) Ensure Enlive- once daily w/ breakfast per pt request
--- NOTE | 2018-08-04 14:12 | 48 Hour Post Anesthesia Eval ---
Post Anesthesia Evaluation Procedure: ERCP Date of Evaluation: Aug 04, 2018 Time of Evaluation: 14:11 Blood Pressure Systolic: 116 0: 85 Pulse Rate: 90 Respiratory Rate: 14 O2 Sat by Pulse Oximetry: 96 Airway: patent Nausea: No Vomiting: No Hydration Status: adequate Cardiopulmonary Status: stable Mental Status/LOC: patient returned to baseline Follow-up Care/Observations: na Post-Anesthesia Complications: none Follow-up care needed: N/A Kathleen Recinos CRNA Aug 04, 2018 14:12
[2018-08-04] MEDS: Heparin 25,000u/D5W 500ml 500 ML IV SCH (14:30)
--- NOTE | 2018-08-04 15:50 | Surgery Progress Note ---
Surgery Progress Note Subjective Additional Comments leukocytosis improved. lft's worse. more jaundice today. Objective Last 24 Hour Vital Signs Date Time Temp Pulse Resp B/P (MAP) Pulse Ox O2 Delivery O2 Flow Rate FiO2 08/04/18 14:12 90 14 96 08/04/18 12:00 98.0 99 16 113/67 (82) 96 08/04/18 09:00 Room Air 08/04/18 08:00 98.8 99 18 110/85 (93) 95 08/04/18 04:00 97.6 107 16 107/75 (86) 94 08/04/18 00:00 97.5 109 16 113/68 (83) 96 08/03/18 21:00 Room Air 08/03/18 20:00 98.2 111 16 102/71 (81) 97 08/03/18 16:00 98.5 108 20 107/73 (84) 99 I&O Intake and Output 08/03/18 08/04/18 19:00 07:00 Intake Total 770.544 ml 366.768 ml Balance 770.544 ml 366.768 ml Intake Oral 240 ml IV Total 530.544 ml 366.768 ml # Bowel Movements 2 Dressing: dry Wound: clean Drains: other Cardiovascular: RSR Respiratory: clear Abdomen: soft, non-tender, present bowel sounds, non-distended Extremities: no tenderness, no cyanosis Laboratory Tests Test 08/03/18 16:40 08/03/18 21:04 08/04/18 04:20 White Blood Count 18.2 K/UL (4.8-10.8) H 12.6 K/UL (4.8-10.8) H Red Blood Count 3.60 M/UL (4.20-5.40) L 3.32 M/UL (4.20-5.40) L Hemoglobin 11.0 G/DL (12.0-16.0) L 10.3 G/DL (12.0-16.0) L Hematocrit 33.4 % (37.0-47.0) L 31.1 % (37.0-47.0) L Mean Corpuscular Volume 93 FL (80-99) 93 FL (80-99) Mean Corpuscular Hemoglobin 30.6 PG (27.0-31.0) 31.1 PG (27.0-31.0) H Mean Corpuscular Hemoglobin Concent 33.0 G/DL (32.0-36.0) 33.3 G/DL (32.0-36.0) Red Cell Distribution Width 16.3 % (11.6-14.8) H 17.3 % (11.6-14.8) H Platelet Count 638 K/UL (150-450) H 601 K/UL (150-450) H Mean Platelet Volume 4.4 FL (6.5-10.1) L 4.6 FL (6.5-10.1) L Neutrophils (%) (Auto) % (45.0-75.0) % (45.0-75.0) Lymphocytes (%) (Auto) % (20.0-45.0) % (20.0-45.0) Monocytes (%) (Auto) % (1.0-10.0) % (1.0-10.0) Eosinophils (%) (Auto) % (0.0-3.0) % (0.0-3.0) Basophils (%) (Auto) % (0.0-2.0) % (0.0-2.0) Differential Total Cells Counted 100 Neutrophils % (Manual) 91 % (45-75) H Lymphocytes % (Manual) 3 % (20-45) L Monocytes % (Manual) 3 % (1-10) Eosinophils % (Manual) 0 % (0-3) Basophils % (Manual) 0 % (0-2) Band Neutrophils 3 % (0-8) Platelet Estimate Increased H Platelet Morphology Normal Anisocytosis 1+ Activated Partial Thromboplast Time 95 SEC (23-33) H 78 SEC (23-33) H Sodium Level 132 MMOL/L (136-145) L Potassium Level 3.6 MMOL/L (3.5-5.1) Chloride Level 99 MMOL/L (98-107) Carbon Dioxide Level 22 MMOL/L (21-32) Anion Gap 11 mmol/L (5-15) Blood Urea Nitrogen 14 mg/dL (7-18) Creatinine 0.4 MG/DL (0.55-1.30) L Estimat Glomerular Filtration Rate mL/min (>60) Glucose Level 101 MG/DL (74-106) Calcium Level 8.1 MG/DL (8.5-10.1) L Total Bilirubin 14.8 MG/DL (0.2-1.0) H Direct Bilirubin 12.5 MG/DL (0.0-0.3) H Aspartate Amino Transf (AST/SGOT) 141 U/L (15-37) H Alanine Aminotransferase (ALT/SGPT) 153 U/L (12-78) H Alkaline Phosphatase 1290 U/L (46-116) H Total Protein 4.6 G/DL (6.4-8.2) L Albumin 1.4 G/DL (3.4-5.0) L Globulin 3.2 g/dL Albumin/Globulin Ratio 0.4 (1.0-2.7) L Plan Problems: (1) Jaundice Assessment & Plan: hx cholecystitis s/p cholecystostomy tube. tube now draining minimal. now with jaundice. lft's abnormal, t bili elevated, alk phos elevated no abd pain -CT A/P -Abdominal ultrasound - Impression: Nondilated common bile duct, but mild intrahepatic biliary ductal dilatation and striking thickening and increased echogenicity of the biliary ductal hernandez. Findings are suspicious for ascending cholangitis Cholecystostomy tube within the gallbladder, which is nondistended Ascites fluid, also previously demonstrated bilateral pleural effusions, drainage catheter within left pleural effusion Large bilateral pleural effusions. That on the left is present despite a chronic drainage catheter in position. This may reflect lack of recent drainage , versus catheter malfunction Compressive atelectasis of both lower lobes and portions of the upper lobes, secondary to the above Minimal pericardial fluid Percutaneous drainage catheter within the gallbladder , which is now decompressed. Catheter appears well-positioned Wall thickening of the common bile duct, which is mildly distended. This suggests cholangitis, also suggested on recent ultrasound. Note that similar findings are described on the prior CT. Ascites fluid, also previously demonstrated and not significantly changed Mesenteric congestion, may be slightly increased from the prior exam Mesenteric root and peripancreatic lymphadenopathy. Nonspecific as regards etiology, could be reactive or neoplastic. This is a new finding Equivocal mild wall thickening of the ascending colon, could indicate colitis if real. Diffuse edema of the bilateral flank subcutaneous fat, similar to previous study. Prior hysterectomy Subcentimeter right renal lesion, too small to characterize, most likely benign simple cyst. No further follow-up necessary ERCP without obstruction. stent placed labs worsening. may need liver biopsy IVF IV Abx trend labs cont tube / drain care (2) Lower extremity edema Assessment & Plan: left foot edema right okay eval for DVT studies Rich Kiran Aug 04, 2018 15:50
[2018-08-04 16:00] VITALS: BP 109/73
--- NOTE | 2018-08-04 16:22 | NUR ---
*-* INSURANCE *-* UPDATED CLINICALS AND REVIEW FAXED TO: [facility] TRKING# [id number] NCM: JAZZY P- [phone]...ASK FOR TRS TO DEPT F- [phone]
--- NOTE | 2018-08-04 19:11 | NUR ---
HAND-OFF: Report given to Malean KIRBY.
--- NOTE | 2018-08-04 19:16 | Diagnostic Imaging Report ---
APPROVED REPORT CPT Code: 49196 Present Symptoms Comments: Swelling RIGHT LEG: Venous imaging reveals a patent deep venous system. There is no evidence of thrombus within the femoral, popliteal or tibial segments. The greater saphenous vein is also within normal limits. Doppler indicates normal spontaneous flow within these segments. LEFT LEG: Venous imaging reveals acute thrombus in the common femoral, popliteal and calf veins (posterior tibial, anterior tibial and peroneal). Imaging also reveals patency of greater saphenous vein. KOFI Bennett was informed at 1330 hours.
--- NOTE | 2018-08-04 19:17 | Diagnostic Imaging Report ---
Indication: Abdominal pain. ERCP. Findings: Fluoroscopically captured images of the right upper quadrant of the abdomen demonstrate an endoscope with cannulation of the common bile duct and injection of contrast material. Total fluoroscopic time 229 seconds. Percutaneous catheter noted projected over the right upper quadrant. Cannulation of the CBD and wire manipulation with contrast injection noted. A biliary stent was placed. Impression: ERCP as above
--- NOTE | 2018-08-04 19:28 | NUR ---
NURSE NOTES: patient received. patient in no acute distress at this time. patient complains of no pain at this time. patient awake alert and oriented x4. patient bed-potter by bedside. patient IV intact and asymptomatic. bed in lowest position and locked call light within reach. will continue to monitor.
[2018-08-04 20:00] VITALS: BP 114/76
[2018-08-05] VITALS: BP 107/71
[2018-08-05 04:00] VITALS: BP 101/67
[2018-08-05] MEDS: Piperacillin/Tazobactam 3.375 GM in D5W 110 ML IVPB SCH ×3 (05:54→21:00)
[2018-08-05 07:08] LABS: HEMATOCRIT 29.9 % (37.0-47.0); MEAN CORPUSCULAR VOLUME 94 FL (80-99); PLATELET COUNT 579 K/UL (150-450); RED BLOOD COUNT 3.19 M/UL (4.20-5.40); RED CELL DISTRIBUTION WIDTH 17.3 % (11.6-14.8); WHITE BLOOD COUNT 11.4 K/UL (4.8-10.8)
[2018-08-05 07:12] LABS: ALANINE AMINOTRANSFERASE 137 U/L (12-78); ALBUMIN 1.4 G/DL (3.4-5.0); ALBUMIN/GLOBULIN RATIO 0.4 (1.0-2.7); ALKALINE PHOSPHATASE 1166 U/L (46-116); ANION GAP 11 mmol/L (5-15); ASPARTATE AMINO TRANSFERASE 112 U/L (15-37); BILIRUBIN,TOTAL 15.5 MG/DL (0.2-1.0); BLOOD UREA NITROGEN 11 mg/dL (7-18); CARBON DIOXIDE 24 MMOL/L (21-32); CHLORIDE 98 MMOL/L (98-107); CREATININE 0.4 MG/DL (0.55-1.30); SODIUM 133 MMOL/L (136-145)
[2018-08-05 07:18] LABS: BILIRUBIN,DIRECT 13.2 MG/DL (0.0-0.3); POTASSIUM 2.4 MMOL/L (3.5-5.1)
--- NOTE | 2018-08-05 07:19 | NUR ---
HAND-OFF: Report given to shi spencer.
--- NOTE | 2018-08-05 07:42 | NUR ---
NURSE NOTES: Patient received in stable condition, eating breakfast in bed. Alert and oriented, breathing unlabored. Denies respiratory distress or pain. IV fluids running on both arms. Cholecystostomy tube patent and intact. Bed locked in lowest position, pillows positioned to patient's comfort. Call light placed within reach, will continue to monitor.
[2018-08-05 08:00] VITALS: BP 100/64
[2018-08-05] MEDS: Ferrous Sulfate 300 MG/5 ML UDC ORAL SCH (08:02)
[2018-08-05] MEDS: Multivitamin w/Minerals tab ORAL SCH (08:02)
[2018-08-05] MEDS: Morphine Sulfate 2mg/ml Inj(IV/IM USE ONLY) IVP PRN ×3 (08:05→22:57)
--- NOTE | 2018-08-05 08:28 | NUR ---
CASE MANAGEMENT:REVIEW 08/05/18 SI: CHOLANGITIS. MALIGNANT ASCITES METASTATIC OVARIAN CA. ACUTE LLE DVT 98.2 100 20 101/67 96% ON RA WBC+11.7 H/H-10.0/29.9 K-2.4 TBILI+15.5 DBILI+13.2 AST/ALT+112/137 IS: HEPARIN GTT IV MORPHINE Q4HRS PRN IV ZOSYN Q8HRS : MED/SURG STATUS 4 EAST DCP: FROM [facility]
--- NOTE | 2018-08-05 09:50 | General Progress Note ---
Assessment/Plan Problem List: (1) Cancer, metastatic ICD Codes: C79.9 - Secondary malignant neoplasm of unspecified site SNOMED: 259526734 (2) Jaundice ICD Codes: R17 - Unspecified jaundice SNOMED: 86855655 (3) Abdominal pain ICD Codes: R10.9 - Unspecified abdominal pain SNOMED: 98395859 (4) Cholecystitis ICD Codes: K81.9 - Cholecystitis, unspecified SNOMED: 36129693 (5) Dehydration ICD Codes: E86.0 - Dehydration SNOMED: 26872270 Assessment/Plan s/p ercp and biliary stent fu labs abx fu surg team recs recommend MRI to eval for tumor infiltration into the liver overall poor prognosis Subjective ROS Limited/Unobtainable: No Allergies: Coded Allergies: No Known Allergies (Unverified , 06/17/18) Subjective C/O ABD PAIN Objective Last 24 Hour Vital Signs Date Time Temp Pulse Resp B/P (MAP) Pulse Ox O2 Delivery O2 Flow Rate FiO2 08/05/18 09:00 Room Air 08/05/18 08:00 98.2 100 13 100/64 (76) 96 08/05/18 04:00 98.2 100 20 101/67 (78) 96 08/05/18 00:00 97.9 109 20 107/71 (83) 96 08/04/18 21:00 Room Air 08/04/18 20:00 98.2 106 22 114/76 (89) 97 08/04/18 16:00 98.2 101 18 109/73 (85) 97 08/04/18 14:12 90 14 96 08/04/18 12:00 98.0 99 16 113/67 (82) 96 Intake and Output 08/04/18 08/05/18 18:59 06:59 Intake Total 600 ml Output Total 10 ml Balance 590 ml Intake Oral 600 ml Other 10 ml # Bowel Movements 2 2 Laboratory Tests 08/05/18 05:58: White Blood Count 11.4H, Red Blood Count 3.19L, Hemoglobin 10.0L, Hematocrit 29.9L, Mean Corpuscular Volume 94, Mean Corpuscular Hemoglobin 31.4H, Mean Corpuscular Hemoglobin Concent 33.5, Red Cell Distribution Width 17.3H, Platelet Count 579H, Mean Platelet Volume 4.8L, Neutrophils (%) (Auto) , Lymphocytes (%) (Auto) , Monocytes (%) (Auto) , Eosinophils (%) (Auto) , Basophils (%) (Auto) , Differential Total Cells Counted 100, Neutrophils % ( Manual) 81H, Lymphocytes % (Manual) 7L, Monocytes % (Manual) 6, Eosinophils % ( Manual) 1, Basophils % (Manual) 0, Band Neutrophils 5, Platelet Estimate IncreasedH, Platelet Morphology Normal, Basophilic Stippling 1+, Anisocytosis 1+ , Target Cells 1+, Activated Partial Thromboplast Time 75H, Sodium Level 133L, Potassium Level 2.4*L, Chloride Level 98, Carbon Dioxide Level 24, Anion Gap 11 , Blood Urea Nitrogen 11, Creatinine 0.4L, Estimat Glomerular Filtration Rate , Glucose Level 113H, Calcium Level 8.0L, Total Bilirubin 15.5H, Direct Bilirubin 13.2H, Aspartate Amino Transf (AST/SGOT) 112H, Alanine Aminotransferase (ALT/ SGPT) 137H, Alkaline Phosphatase 1166H, Total Protein 4.7L, Albumin 1.4L, Globulin 3.3, Albumin/Globulin Ratio 0.4L Height (Feet): 5 Height (Inches): 0.00 Weight (Pounds): 107 General Appearance: lethargic EENT: scleral icterus Neck: supple Cardiovascular: normal rate Respiratory/Chest: decreased breath sounds Abdomen: soft, hypoactive bowel sounds Extremities: non-tender Tramaine Miller MD Aug 05, 2018 09:50
[2018-08-05] MEDS ORDERED: Gadavist 7.5mMol/7.5ml vial IV PRN (10:00)
[2018-08-05 12:00] VITALS: BP 105/70
--- NOTE | 2018-08-05 13:56 | NUR ---
*-* INSURANCE *-* UPDATED CLINICALS AND REVIEW FAXED TO: [facility] TRKING# [id number] NCM: JAZZY P- [phone]...ASK FOR TRS TO DEPT F- [phone]
--- NOTE | 2018-08-05 15:02 | NUR ---
MRI ABDOMEN W/WO COMPLETED. PLEASE NOTE PT INABILITY TO HOLD BREATH AFFECTED THE QUALITY OF THE SCAN.
--- NOTE | 2018-08-05 15:42 | Diagnostic Imaging Report ---
Indication: Abdominal pain. Abnormal CT. Jaundice. Anemia. Technique: MRI of the abdomen was performed in a 1.5 Jennifer magnet. Pulse sequences obtained include coronal and axial T2 single shot fast spin echo breathhold, Axial T1 FSPGR in/out phase, Axial T2 FSE w/ fat saturation, Axial 2-D FIESTA, Ax/Cor T1 LAVA. Dynamic gadolinium-enhanced axial T1 lava obtained. Comparison: Noncontrast CT 07/31/2018 Findings: Exam is limited because of the inability to breath-hold. Gallbladder is abnormal in appearance with a marked wall thickening heterogeneity. There is a CBD stent present. It is difficult to see the cholecystostomy tube which may have been removed. Please correlate clinically. There is a small amount of ascites present. Small loculated fluid collections are noted in the lesser sac and Morison's pouch and adjacent to the splenic hilum above the pancreas. These are noted more less on the prior CT as well. There is no biliary ductal dilatation. There is no liver mass identified. No abnormal enhancement in the liver identified. There is no adrenal mass. There is breathing motion which is considerable. Small right renal cysts present. The spleen is normal in size. Moderate to large bilateral pleural effusions are noted. Heterogeneous lung parenchyma likely consolidation or atelectasis. There is no hydronephrosis. IMPRESSION: No liver mass identified. Abnormal gallbladder with marked wall thickening. Query presence of a cholecystostomy tube which is not well seen on this examination and may have been removed. CBD stent. No biliary ductal dilatation. Patchy heterogeneous fluid within the abdomen as described above. Moderate to large bilateral pleural effusions and posterior basal pneumonia versus atelectasis. Right renal cyst.
[2018-08-05 16:00] VITALS: BP 109/68
[2018-08-05] MEDS: Heparin 25,000u/D5W 500ml 500 ML IV SCH (18:42)
--- NOTE | 2018-08-05 19:36 | NUR ---
HAND-OFF: Report given to Karla KIRBY.
[2018-08-05 20:00] VITALS: BP 120/74
--- NOTE | 2018-08-05 20:00 | NUR ---
NURSE NOTES: Patient received in bed, awake alert. Right abd cath draining. Left upper abd cath locked and secured. Dressings are intact and patent. IV on left hand with hep drip at 18u/kg/hr. Calll light in reach. WIll continue POC.
--- NOTE | 2018-08-05 21:51 | Surgery Progress Note ---
Surgery Progress Note Subjective Additional Comments MRCP resulted and noted. labs with worsening lft's. jaundice. exam unchanged. Objective Last 24 Hour Vital Signs Date Time Temp Pulse Resp B/P (MAP) Pulse Ox O2 Delivery O2 Flow Rate FiO2 08/05/18 16:00 97.9 104 18 109/68 (82) 92 08/05/18 12:00 98.0 98 15 105/70 (82) 96 08/05/18 10:31 Nasal Cannula 3.5 08/05/18 09:00 Room Air 08/05/18 08:00 98.2 100 13 100/64 (76) 96 08/05/18 04:00 98.2 100 20 101/67 (78) 96 08/05/18 00:00 97.9 109 20 107/71 (83) 96 I&O Intake and Output 08/04/18 08/05/18 19:00 07:00 Intake Total 600 ml Output Total 10 ml Balance 590 ml Intake Oral 600 ml Other 10 ml # Bowel Movements 2 2 Dressing: dry Wound: other Drains: other Cardiovascular: RSR Respiratory: clear Abdomen: soft, non-tender, other Extremities: no cyanosis Laboratory Tests Test 08/05/18 05:58 White Blood Count 11.4 K/UL (4.8-10.8) H Red Blood Count 3.19 M/UL (4.20-5.40) L Hemoglobin 10.0 G/DL (12.0-16.0) L Hematocrit 29.9 % (37.0-47.0) L Mean Corpuscular Volume 94 FL (80-99) Mean Corpuscular Hemoglobin 31.4 PG (27.0-31.0) H Mean Corpuscular Hemoglobin Concent 33.5 G/DL (32.0-36.0) Red Cell Distribution Width 17.3 % (11.6-14.8) H Platelet Count 579 K/UL (150-450) H Mean Platelet Volume 4.8 FL (6.5-10.1) L Neutrophils (%) (Auto) % (45.0-75.0) Lymphocytes (%) (Auto) % (20.0-45.0) Monocytes (%) (Auto) % (1.0-10.0) Eosinophils (%) (Auto) % (0.0-3.0) Basophils (%) (Auto) % (0.0-2.0) Differential Total Cells Counted 100 Neutrophils % (Manual) 81 % (45-75) H Lymphocytes % (Manual) 7 % (20-45) L Monocytes % (Manual) 6 % (1-10) Eosinophils % (Manual) 1 % (0-3) Basophils % (Manual) 0 % (0-2) Band Neutrophils 5 % (0-8) Platelet Estimate Increased H Platelet Morphology Normal Basophilic Stippling 1+ Anisocytosis 1+ Target Cells 1+ Activated Partial Thromboplast Time 75 SEC (23-33) H Sodium Level 133 MMOL/L (136-145) L Potassium Level 2.4 MMOL/L (3.5-5.1) *L Chloride Level 98 MMOL/L (98-107) Carbon Dioxide Level 24 MMOL/L (21-32) Anion Gap 11 mmol/L (5-15) Blood Urea Nitrogen 11 mg/dL (7-18) Creatinine 0.4 MG/DL (0.55-1.30) L Estimat Glomerular Filtration Rate mL/min (>60) Glucose Level 113 MG/DL (74-106) H Calcium Level 8.0 MG/DL (8.5-10.1) L Total Bilirubin 15.5 MG/DL (0.2-1.0) H Direct Bilirubin 13.2 MG/DL (0.0-0.3) H Aspartate Amino Transf (AST/SGOT) 112 U/L (15-37) H Alanine Aminotransferase (ALT/SGPT) 137 U/L (12-78) H Alkaline Phosphatase 1166 U/L (46-116) H Total Protein 4.7 G/DL (6.4-8.2) L Albumin 1.4 G/DL (3.4-5.0) L Globulin 3.3 g/dL Albumin/Globulin Ratio 0.4 (1.0-2.7) L Plan Problems: (1) Jaundice Assessment & Plan: hx cholecystitis s/p cholecystostomy tube. tube now draining minimal. now with jaundice. lft's abnormal, t bili elevated, alk phos elevated no abd pain -CT A/P -Abdominal ultrasound - Impression: Nondilated common bile duct, but mild intrahepatic biliary ductal dilatation and striking thickening and increased echogenicity of the biliary ductal hernandez. Findings are suspicious for ascending cholangitis Cholecystostomy tube within the gallbladder, which is nondistended Ascites fluid, also previously demonstrated bilateral pleural effusions, drainage catheter within left pleural effusion Large bilateral pleural effusions. That on the left is present despite a chronic drainage catheter in position. This may reflect lack of recent drainage , versus catheter malfunction Compressive atelectasis of both lower lobes and portions of the upper lobes, secondary to the above Minimal pericardial fluid Percutaneous drainage catheter within the gallbladder , which is now decompressed. Catheter appears well-positioned Wall thickening of the common bile duct, which is mildly distended. This suggests cholangitis, also suggested on recent ultrasound. Note that similar findings are described on the prior CT. Ascites fluid, also previously demonstrated and not significantly changed Mesenteric congestion, may be slightly increased from the prior exam Mesenteric root and peripancreatic lymphadenopathy. Nonspecific as regards etiology, could be reactive or neoplastic. This is a new finding Equivocal mild wall thickening of the ascending colon, could indicate colitis if real. Diffuse edema of the bilateral flank subcutaneous fat, similar to previous study. Prior hysterectomy Subcentimeter right renal lesion, too small to characterize, most likely benign simple cyst. No further follow-up necessary ERCP without obstruction. stent placed labs worsening. MRCP noted. drain seen earlier prior to MRI. not seen on MRI. drain seen on exam earlier. unsure of significance. unfortunately drain cannot be removed given recent findings and MRI findings. IVF IV Abx trend labs cont tube / drain care (2) Lower extremity edema Assessment & Plan: left foot edema right okay eval for DVT studies Rich Kiran Aug 05, 2018 21:51
[2018-08-06] VITALS: BP 120/74
--- NOTE | 2018-08-06 01:15 | Progress Note ---
DATE: 08/04/2018 CARDIOLOGY PROGRESS NOTE Late entry for 08/04/2018. SUBJECTIVE: The patient remains jaundiced. She is status post ERCP with stent placement. OBJECTIVE: VITAL SIGNS: Blood pressure 107/75, pulse 107, respirations 16, and afebrile. LUNGS: Diminished breath sounds on the left. Few rhonchi. CARDIAC: Regular rhythm. Rapid rate. Normal S1, S2. ABDOMEN: Soft. Slightly distended and ascitic. EXTREMITIES: There is 1+ dependent edema. LABORATORY DATA: White count 12.6 and hemoglobin 10.3. Potassium 3.6, BUN 14, and creatinine 0.4. Albumin 1.4. IMPRESSION: Acute DVT. PLAN: 1. Pain control. 2. Antimicrobials. 3. Full anticoagulation. 4. PleurX catheter drainage. 5. Monitor electrolytes. Faisal Rollins M.D. DR: PAULINA JOB#: [id number] CC:
--- NOTE | 2018-08-06 01:15 | Progress Note ---
DATE: 08/05/2018 SUBJECTIVE: The patient is status post MRI scan. Findings are notable for no liver mass, abnormal gallbladder with wall thickening, common bile duct stent, heterogeneous fluid in the abdomen, and bilateral pleural effusions. OBJECTIVE: VITAL SIGNS: Blood pressure 120/74, pulse 108, respirations 16, and afebrile. LUNGS: Diminished breath sounds. Few rhonchi. HEART: Regular rhythm. Rapid rate. Normal S1, S2. ABDOMEN: Soft. EXTREMITIES: Trace edema. LABORATORY DATA: Potassium 2.4. Albumin 1.4. White count 11 and hemoglobin 10. IMPRESSION: 1. Malignant ascites. 2. Metastatic ovarian carcinoma. 3. DVT. 4. Hypokalemia. 5. Obstructive biliary disease status post stenting. 6. Pleural effusion. PLAN: 1. PleurX catheter drainage. 2. Antimicrobials. 3. Full anticoagulation. 4. Replace potassium. 5. Check magnesium. 6. Discharge planning. Faisal Rollins M.D. DR: PAULINA JOB#: [id number] CC:
--- NOTE | 2018-08-06 01:45 | NUR ---
NURSE NOTES: Received call from [facility] regarding eliquis dosage. Dr. Rollins personally entered the order. Per Rx Jp she will contact MD regarding dose clarification
[2018-08-06] MEDS: Morphine Sulfate 2mg/ml Inj(IV/IM USE ONLY) IVP PRN ×3 (03:00→13:17)
[2018-08-06 04:00] VITALS: BP 119/72
[2018-08-06 04:50] LABS: BASOPHILS % (AUTO) 0.7 % (0.0-2.0); EOSINOPHILS % (AUTO) 1.2 % (0.0-3.0); HEMATOCRIT 27.4 % (37.0-47.0); HEMOGLOBIN 9.2 G/DL (12.0-16.0); MEAN CORPUSCULAR VOLUME 93 FL (80-99); MONOCYTES % (AUTO) 6.9 % (1.0-10.0); NEUTROPHILS % (AUTO) 84.3 % (45.0-75.0); PLATELET COUNT 550 K/UL (150-450); RED BLOOD COUNT 2.94 M/UL (4.20-5.40); WHITE BLOOD COUNT 9.5 K/UL (4.8-10.8)
[2018-08-06 05:23] LABS: ALANINE AMINOTRANSFERASE 115 U/L (12-78); ALBUMIN 1.3 G/DL (3.4-5.0); ALBUMIN/GLOBULIN RATIO 0.4 (1.0-2.7); ALKALINE PHOSPHATASE 998 U/L (46-116); ANION GAP 10 mmol/L (5-15); ASPARTATE AMINO TRANSFERASE 100 U/L (15-37); BILIRUBIN,TOTAL 13.9 MG/DL (0.2-1.0); BLOOD UREA NITROGEN 11 mg/dL (7-18); CALCIUM 7.8 MG/DL (8.5-10.1); CARBON DIOXIDE 25 MMOL/L (21-32); CHLORIDE 97 MMOL/L (98-107); CREATININE 0.3 MG/DL (0.55-1.30); POTASSIUM 3.3 MMOL/L (3.5-5.1); SODIUM 132 MMOL/L (136-145)
[2018-08-06 06:44] LABS: BILIRUBIN,DIRECT 11.3 MG/DL (0.0-0.3)
--- NOTE | 2018-08-06 07:19 | NUR ---
HAND-OFF: Report given to Jeffrey العلي RN.
--- NOTE | 2018-08-06 07:21 | NUR ---
NURSE NOTES: received report from KOFI Acosta. patient in bed. alert, verbally responsive. no respiratory distress noted. no c/o pain at this time. Biliary tube on Rt abd. thoravent on lt flank area. IV on LFA, RH intact. bed in the lowest position. call light within reach. will continue to monitor.
[2018-08-06 08:00] VITALS: BP 107/75
[2018-08-06] MEDS: Multivitamin w/Minerals tab ORAL SCH (08:09)
[2018-08-06] MEDS: Ferrous Sulfate 300 MG/5 ML UDC ORAL SCH (08:09)
--- NOTE | 2018-08-06 08:59 | NUR ---
CASE MANAGEMENT:REVIEW 08/06/18 SI: CHOLANGITIS. MALIGNANT ASCITES METASTATIC OVARIAN CA. ACUTE LLE DVT 97.8 99 16 119/72 97% ON 1L/NC H/H-9.2/27.4 K-3.3 TBILI+13.9 DBILI+11.3 AST/ALT+100/115 IS: ELIQUIS PO BID LEVAQUIN PO QD IV MORPHINE Q4HRS PRN : MED/SURG STATUS 4 EAST DCP: FROM [facility] PLAN: REFERRED BACK TO [facility]
[2018-08-06] MEDS ORDERED: Eliquis 2.5mg tablet ORAL SCH (09:00)
--- NOTE | 2018-08-06 09:03 | NUR ---
DISCHARGE PLANNING PATIENT HAS BEEN REFERRED BACK TO [facility] T: [phone] AWAIT ACCEPTANCE AND BED ASSIGNMENT
--- NOTE | 2018-08-06 09:53 | NUR ---
NURSE NOTES: Dr. vaughan ordered Lasix IV 40mg IV once at 0900. patient took lasix 40mg tab po at 0844. notified dr. vaughan and received order administer Lasix 40mg/4ml iv once and 40meq kcl po once. order noted and carried out.
--- NOTE | 2018-08-06 11:25 | NUR ---
DISCHARGE [employer]AN [employer]OR[employer]AC[facility] HOUSEKEEPER CALLED [facility] REGARDING PATIENT RETURNING TODAY SPOKE WITH JOHN. PER JOHN PATIENT WILL BE ACCEPTED BACK TO ROOM 1B WHEN SHE RETURNS NO DISCHARGE ORDER AT THIS TIME
--- NOTE | 2018-08-06 12:26 | GI Progress Note ---
Assessment/Plan Problems: (1) Cancer, metastatic ICD Codes: C79.9 - Secondary malignant neoplasm of unspecified site SNOMED: 649986102 (2) Jaundice ICD Codes: R17 - Unspecified jaundice SNOMED: 63444369 (3) Abdominal pain ICD Codes: R10.9 - Unspecified abdominal pain SNOMED: 46059820 (4) Cholecystitis ICD Codes: K81.9 - Cholecystitis, unspecified SNOMED: 95997571 (5) Dehydration ICD Codes: E86.0 - Dehydration SNOMED: 51487775 Subjective Subjective C/O ABD PAIN Objective Last 24 Hour Vital Signs Date Time Temp Pulse Resp B/P (MAP) Pulse Ox O2 Delivery O2 Flow Rate FiO2 08/06/18 09:00 Nasal Cannula 1.0 08/06/18 08:00 97.7 103 16 107/75 (86) 95 08/06/18 04:00 97.8 99 16 119/72 (88) 97 08/06/18 03:30 98.3 08/06/18 00:00 98.3 107 16 120/74 (89) 93 08/05/18 21:00 Nasal Cannula 1.0 08/05/18 20:00 98.3 108 16 120/74 (89) 96 08/05/18 16:00 97.9 104 18 109/68 (82) 92 Intake and Output 08/05/18 08/06/18 18:59 06:59 Intake Total 240 ml 198.180 ml Output Total 205 ml 160 ml Balance 35 ml 38.180 ml Intake Oral 240 ml IV Total 198.180 ml Output Urine Total 200 ml 150 ml Other 5 ml 10 ml # Bowel Movements 1 Laboratory Tests Test 08/06/18 04:12 White Blood Count 9.5 K/UL (4.8-10.8) Red Blood Count 2.94 M/UL (4.20-5.40) L Hemoglobin 9.2 G/DL (12.0-16.0) L Hematocrit 27.4 % (37.0-47.0) L Mean Corpuscular Volume 93 FL (80-99) Mean Corpuscular Hemoglobin 31.2 PG (27.0-31.0) H Mean Corpuscular Hemoglobin Concent 33.4 G/DL (32.0-36.0) Red Cell Distribution Width 17.0 % (11.6-14.8) H Platelet Count 550 K/UL (150-450) H Mean Platelet Volume 4.7 FL (6.5-10.1) L Neutrophils (%) (Auto) 84.3 % (45.0-75.0) H Lymphocytes (%) (Auto) 7.0 % (20.0-45.0) L Monocytes (%) (Auto) 6.9 % (1.0-10.0) Eosinophils (%) (Auto) 1.2 % (0.0-3.0) Basophils (%) (Auto) 0.7 % (0.0-2.0) Sodium Level 132 MMOL/L (136-145) L Potassium Level 3.3 MMOL/L (3.5-5.1) L Chloride Level 97 MMOL/L (98-107) L Carbon Dioxide Level 25 MMOL/L (21-32) Anion Gap 10 mmol/L (5-15) Blood Urea Nitrogen 11 mg/dL (7-18) Creatinine 0.3 MG/DL (0.55-1.30) L Estimat Glomerular Filtration Rate mL/min (>60) Glucose Level 96 MG/DL (74-106) Calcium Level 7.8 MG/DL (8.5-10.1) L Magnesium Level 1.8 MG/DL (1.8-2.4) Total Bilirubin 13.9 MG/DL (0.2-1.0) H Direct Bilirubin 11.3 MG/DL (0.0-0.3) H Aspartate Amino Transf (AST/SGOT) 100 U/L (15-37) H Alanine Aminotransferase (ALT/SGPT) 115 U/L (12-78) H Alkaline Phosphatase 998 U/L (46-116) H Total Protein 4.2 G/DL (6.4-8.2) L Albumin 1.3 G/DL (3.4-5.0) L Globulin 2.9 g/dL Albumin/Globulin Ratio 0.4 (1.0-2.7) L Height (Feet): 5 Height (Inches): 0.00 Weight (Pounds): 107 Tramaine Miller MD Aug 06, 2018 12:26
--- NOTE | 2018-08-06 12:28 | General Progress Note ---
Assessment/Plan Problem List: (1) Cancer, metastatic ICD Codes: C79.9 - Secondary malignant neoplasm of unspecified site SNOMED: 528670327 (2) Jaundice ICD Codes: R17 - Unspecified jaundice SNOMED: 81352272 (3) Abdominal pain ICD Codes: R10.9 - Unspecified abdominal pain SNOMED: 92544544 (4) Cholecystitis ICD Codes: K81.9 - Cholecystitis, unspecified SNOMED: 92849869 (5) Dehydration ICD Codes: E86.0 - Dehydration SNOMED: 86833543 Assessment/Plan s/p ercp and biliary stent fu labs abx fu surg team recs MRI>>> no liver mass ordered JASON, SMA, AMA repeat labs in am overall poor prognosis Subjective ROS Limited/Unobtainable: No Allergies: Coded Allergies: No Known Allergies (Unverified , 06/17/18) Subjective C/O ABD PAIN Objective Last 24 Hour Vital Signs Date Time Temp Pulse Resp B/P (MAP) Pulse Ox O2 Delivery O2 Flow Rate FiO2 08/06/18 09:00 Nasal Cannula 1.0 08/06/18 08:00 97.7 103 16 107/75 (86) 95 08/06/18 04:00 97.8 99 16 119/72 (88) 97 08/06/18 03:30 98.3 08/06/18 00:00 98.3 107 16 120/74 (89) 93 08/05/18 21:00 Nasal Cannula 1.0 08/05/18 20:00 98.3 108 16 120/74 (89) 96 08/05/18 16:00 97.9 104 18 109/68 (82) 92 Intake and Output 08/05/18 08/06/18 18:59 06:59 Intake Total 240 ml 198.180 ml Output Total 205 ml 160 ml Balance 35 ml 38.180 ml Intake Oral 240 ml IV Total 198.180 ml Output Urine Total 200 ml 150 ml Other 5 ml 10 ml # Bowel Movements 1 Laboratory Tests 08/06/18 04:12: White Blood Count 9.5, Red Blood Count 2.94L, Hemoglobin 9.2L, Hematocrit 27.4L , Mean Corpuscular Volume 93, Mean Corpuscular Hemoglobin 31.2H, Mean Corpuscular Hemoglobin Concent 33.4, Red Cell Distribution Width 17.0H, Platelet Count 550H, Mean Platelet Volume 4.7L, Neutrophils (%) (Auto) 84.3H, Lymphocytes (%) (Auto) 7.0L, Monocytes (%) (Auto) 6.9, Eosinophils (%) (Auto) 1.2, Basophils (%) (Auto) 0.7, Sodium Level 132L, Potassium Level 3.3L, Chloride Level 97L, Carbon Dioxide Level 25, Anion Gap 10, Blood Urea Nitrogen 11, Creatinine 0.3L, Estimat Glomerular Filtration Rate , Glucose Level 96, Calcium Level 7.8L, Magnesium Level 1.8, Total Bilirubin 13.9H, Direct Bilirubin 11.3H, Aspartate Amino Transf (AST/SGOT) 100H, Alanine Aminotransferase (ALT/SGPT) 115H, Alkaline Phosphatase 998H, Total Protein 4.2L , Albumin 1.3L, Globulin 2.9, Albumin/Globulin Ratio 0.4L Height (Feet): 5 Height (Inches): 0.00 Weight (Pounds): 107 General Appearance: no apparent distress EENT: normal ENT inspection, scleral icterus Neck: supple Cardiovascular: normal rate Respiratory/Chest: decreased breath sounds Abdomen: soft, hypoactive bowel sounds, distended Extremities: non-tender Tramaine Miller MD Aug 06, 2018 12:28
--- NOTE | 2018-08-06 13:00 | NUR ---
NURSE NOTES: drained fluid from thoravent on lt flank. 900cc. dark brown. no bleeding noted. cover with dressing as ordered. no s/sx of infection noted
--- NOTE | 2018-08-06 13:39 | NUR ---
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
[2018-08-06] MEDS ORDERED: ELIQUIS2.5 MG PO (14:15)
[2018-08-06] MEDS ORDERED: LEVAQUIN500 MG ORAL (14:17)
[2018-08-06] MEDS ORDERED: MULTIVITAMINS1 EAC8 ORAL (14:18)
--- NOTE | 2018-08-06 14:20 | NUR ---
NURSE NOTES: given report to [facility]. spoke to KOFI Kramer. will be dc at 1440.
--- NOTE | 2018-08-06 14:49 | NUR ---
NURSE NOTES: patient discharged to [facility] via ambulance with fair condition. no respiratory distress noted. no c/o pain at this time. skin intact. IV and name band removed. checked and counted belonging with patient. provided dc packet and obtained sign.
--- NOTE | 2018-08-06 15:49 | Surgery Progress Note ---
Surgery Progress Note Subjective Additional Comments late entry for patient seen earlier. doing well. still jaundice. pain minimal. tolerating diet. no n/v/f/c. labs improved MRI noted. Objective Last 24 Hour Vital Signs Date Time Temp Pulse Resp B/P (MAP) Pulse Ox O2 Delivery O2 Flow Rate FiO2 08/06/18 09:00 Nasal Cannula 1.0 08/06/18 08:00 97.7 103 16 107/75 (86) 95 08/06/18 04:00 97.8 99 16 119/72 (88) 97 08/06/18 03:30 98.3 08/06/18 00:00 98.3 107 16 120/74 (89) 93 08/05/18 21:00 Nasal Cannula 1.0 08/05/18 20:00 98.3 108 16 120/74 (89) 96 08/05/18 16:00 97.9 104 18 109/68 (82) 92 I&O Intake and Output 08/05/18 08/06/18 19:00 07:00 Intake Total 240 ml 198.180 ml Output Total 205 ml 160 ml Balance 35 ml 38.180 ml Intake Oral 240 ml IV Total 198.180 ml Output Urine Total 200 ml 150 ml Other 5 ml 10 ml # Bowel Movements 1 Dressing: dry Wound: clean Drains: other Cardiovascular: RSR Respiratory: clear Abdomen: soft, non-tender, present bowel sounds, non-distended Extremities: no tenderness, no cyanosis Laboratory Tests Test 08/06/18 04:12 White Blood Count 9.5 K/UL (4.8-10.8) Red Blood Count 2.94 M/UL (4.20-5.40) L Hemoglobin 9.2 G/DL (12.0-16.0) L Hematocrit 27.4 % (37.0-47.0) L Mean Corpuscular Volume 93 FL (80-99) Mean Corpuscular Hemoglobin 31.2 PG (27.0-31.0) H Mean Corpuscular Hemoglobin Concent 33.4 G/DL (32.0-36.0) Red Cell Distribution Width 17.0 % (11.6-14.8) H Platelet Count 550 K/UL (150-450) H Mean Platelet Volume 4.7 FL (6.5-10.1) L Neutrophils (%) (Auto) 84.3 % (45.0-75.0) H Lymphocytes (%) (Auto) 7.0 % (20.0-45.0) L Monocytes (%) (Auto) 6.9 % (1.0-10.0) Eosinophils (%) (Auto) 1.2 % (0.0-3.0) Basophils (%) (Auto) 0.7 % (0.0-2.0) Sodium Level 132 MMOL/L (136-145) L Potassium Level 3.3 MMOL/L (3.5-5.1) L Chloride Level 97 MMOL/L (98-107) L Carbon Dioxide Level 25 MMOL/L (21-32) Anion Gap 10 mmol/L (5-15) Blood Urea Nitrogen 11 mg/dL (7-18) Creatinine 0.3 MG/DL (0.55-1.30) L Estimat Glomerular Filtration Rate mL/min (>60) Glucose Level 96 MG/DL (74-106) Calcium Level 7.8 MG/DL (8.5-10.1) L Magnesium Level 1.8 MG/DL (1.8-2.4) Total Bilirubin 13.9 MG/DL (0.2-1.0) H Direct Bilirubin 11.3 MG/DL (0.0-0.3) H Aspartate Amino Transf (AST/SGOT) 100 U/L (15-37) H Alanine Aminotransferase (ALT/SGPT) 115 U/L (12-78) H Alkaline Phosphatase 998 U/L (46-116) H Total Protein 4.2 G/DL (6.4-8.2) L Albumin 1.3 G/DL (3.4-5.0) L Globulin 2.9 g/dL Albumin/Globulin Ratio 0.4 (1.0-2.7) L Plan Problems: (1) Jaundice Assessment & Plan: hx cholecystitis s/p cholecystostomy tube. tube now draining minimal. now with jaundice. lft's abnormal, t bili elevated, alk phos elevated no abd pain -CT A/P -Abdominal ultrasound - Impression: Nondilated common bile duct, but mild intrahepatic biliary ductal dilatation and striking thickening and increased echogenicity of the biliary ductal hernandez. Findings are suspicious for ascending cholangitis Cholecystostomy tube within the gallbladder, which is nondistended Ascites fluid, also previously demonstrated bilateral pleural effusions, drainage catheter within left pleural effusion Large bilateral pleural effusions. That on the left is present despite a chronic drainage catheter in position. This may reflect lack of recent drainage , versus catheter malfunction Compressive atelectasis of both lower lobes and portions of the upper lobes, secondary to the above Minimal pericardial fluid Percutaneous drainage catheter within the gallbladder , which is now decompressed. Catheter appears well-positioned Wall thickening of the common bile duct, which is mildly distended. This suggests cholangitis, also suggested on recent ultrasound. Note that similar findings are described on the prior CT. Ascites fluid, also previously demonstrated and not significantly changed Mesenteric congestion, may be slightly increased from the prior exam Mesenteric root and peripancreatic lymphadenopathy. Nonspecific as regards etiology, could be reactive or neoplastic. This is a new finding Equivocal mild wall thickening of the ascending colon, could indicate colitis if real. Diffuse edema of the bilateral flank subcutaneous fat, similar to previous study. Prior hysterectomy Subcentimeter right renal lesion, too small to characterize, most likely benign simple cyst. No further follow-up necessary ERCP without obstruction. stent placed labs worsening. MRCP noted. drain seen earlier prior to MRI. not seen on MRI. drain seen on exam earlier. unsure of significance. unfortunately drain cannot be removed given recent findings and MRI findings. recommend drain to stay in. unfortunately not sure when it can be removed as it has been weeks and MRI findings concerning. prognosis guarded f/u in 1 month outpatient d/c okay from surgical standpoint (2) Lower extremity edema Assessment & Plan: left foot edema right okay eval for DVT studies Rich Kiran Aug 06, 2018 15:49
--- NOTE | 2018-08-07 | Progress Note ---
DATE: 08/06/2018 CARDIOLOGY PROGRESS NOTE SUBJECTIVE: The patient is doing poorly. She remains jaundiced. She will require continued cholecystostomy drainage for cholecystitis. The PleurX catheter was drained today. The patient has no respiratory distress. OBJECTIVE: VITAL SIGNS: Blood pressure 107/75, pulse 103, respirations 16, and afebrile. LUNGS: Few rhonchi. Diminished breath sounds at the left. CARDIAC: Regular rhythm. Rapid rate. Normal S1, S2. ABDOMEN: Soft with no small amount of ascites. G-tube site intact. EXTREMITIES: No edema. IMPRESSION: 1. Metastatic ovarian cancer. 2. Malignant ascites. 3. Acute cholecystitis. 4. Malignant pleural effusion with PleurX catheter. 5. Secondary sinus tachycardia. PLAN: 1. The patient is preterminal. 2. [facility] with catheter drainage, PleurX. 3. Fluid removal once to twice a week and antimicrobials. 4. Family member aware of diagnosis and prognosis. Faisal Rollins M.D. DR: GENARO JOB#: [id number] CC:
--- NOTE | 2018-08-10 14:42 | Discharge Summary ---
Discharge Summary Discharge Summary _ DATE OF ADMISSION: 07/30/2018 DATE OF DISCHARGE: 08/06/2018 DISCHARGED BY: Dr. Faisal Rollins CONSULTANTS: Dr. Rich Garcia BRIEF HOSPITAL COURSE: Patient is an unfortunate 72-year-old female. She has history of metastatic ovarian carcinoma and cholecystitis. She was recently hospitalized due to jaundice and cholecystitis. She had placement of a drain. She was discharged to a half-way. She was transferred back to [facility] due to complaints of worsening jaundice, malaise and weakness. Patient was DNR based on advanced directives. On evaluation at ED, blood work did not show any leukocytosis. Electrolytes were normal. Bilirubin was elevated to 10 with direct bilirubin 8. Alkaline phosphatase 1400. Troponin was negative. Urinalysis with positive nitrite, 3+ bilirubin, 2+ leukocyte esterase, 2-4 RBC and 0-2 WBC. Chest x-ray showed bilateral pleural effusion. She was then admitted for evaluation of jaundice, likely secondary to an obstructive cholecystostomy drain. Patient was started on Zosyn. Surgery was called. Cholecystostomy tube with minimal drainage. There was increased total bilirubin compared to last admission. Biliary drain output was monitored. Patient was continued on apixaban for anticoagulation. Venous duplex was done and showed positive for acute thrombus in the left common femoral, popliteal and calf vein. Anticoagulation was later on changed to IV heparin as patient will require endoscopy and ERCP with possible stent placement. Abdominal ultrasound showed nondilated common bile duct with mild intrahepatic biliary ductal dilatation and striking thickening and increased echogenicity of the biliary ductal hernandez, suspicious for ascending cholangitis. There was presence of ascites and bilateral pleural effusion with drainage catheter within the left pleural effusion. On 08/03/2018 she underwent ERCP with sphincterotomy, balloon sweep and stent placement. She tolerated procedure well without any complication. Following day, leukocytosis down trended however LFTs were worsening. Patient remained jaundiced. Electrolytes were corrected. Abdominal MRI did not show any liver mass. There was abnormal gallbladder wall with thickening, heterogenous fluid in the abdomen and bilateral pleural effusions. She was resumed full anticoagulation. Patient remained jaundice. She would require continued cholecystostomy drainage and Pleurx catheter drainage. Patient is preterminal. Family members were made aware of the diagnosis and prognosis. She was eventually discharged back to nursing facility to continue long-term care with catheter drainage and Pleurx. FINAL DIAGNOSES: Metastatic ovarian cancer Malignant ascites Acute cholecystitis/cholangitis Malignant pleural effusion with Pleurx catheter Secondary sinus tachycardia Acute left leg DVT Status post ERCP and biliary stent placement on 08/03/2018 Paroxysmal atrial fibrillation Volume overload Hyperbilirubinemia Elevated LFTs Hypokalemia Hypomagnesemia DISPOSITION: Patient was discharged to a SNF. DISCHARGE MEDICATIONS: Refer to Discharge Medication List. I have been assigned to complete a discharge summary on this account, I was not involved with the patient's management. Snehal Hogue NP Aug 10, 2018 14:42
== END 2018-08-06 14:50 | DRG 444 ==
LOC: EDBD 11:47 → EMR 15:01 → 4E 15:52 → EDBEDREQ 16:36 → 4E 08-01 04:43
PROC: 0F798DZ Dilation of Common Bile Duct with Intraluminal Device, Via Natural or Artificial Opening Endoscopic (ICD-10-PCS; principal; 2018-08-03 12:18)
DX: K81.0 Acute cholecystitis (principal); E43 Unspecified severe protein-calorie malnutrition; K83.09 Other cholangitis; C56.9 Malignant neoplasm of unspecified ovary; J91.0 Malignant pleural effusion; I82.502 Chronic embolism and thrombosis of unspecified deep veins of left lower extremity; R18.0 Malignant ascites; R17 Unspecified jaundice; N39.0 Urinary tract infection, site not specified; I82.412 Acute embolism and thrombosis of left femoral vein; I82.432 Acute embolism and thrombosis of left popliteal vein; Z68.21 Body mass index [BMI] 21.0-21.9, adult; Z79.01 Long term (current) use of anticoagulants; E87.6 Hypokalemia; R00.0 Tachycardia, unspecified; Z68.20 Body mass index [BMI] 20.0-20.9, adult; D64.9 Anemia, unspecified; E86.0 Dehydration; I48.0 Paroxysmal atrial fibrillation; E83.42 Hypomagnesemia
CPT/HCPCS: 36415; 71045; 71250; 74176; 74182; 74328; 76000; 76700; 80053; 81003; 82150; 82248; 82550; 82553; 83605; 83690; 83735; 83880; 84484; 85007; 85025; 85610; 85651; 85730; 86140; 87040; 87081; 93005; 93970; 94003; 94150; 96361; 96365; 99285; A9585; J2405; J8499

== ENCOUNTER 2018-08-29 12:28 | Inpatient (IN) | payer MEDICARE, MEDICAID ==
[~2018-08-29] VITALS: Ht 154.9 cm; Wt 55.3 kg
[~2018-08-29 12:28] MED LIST changes: +ELIQUIS2.5 MG PO; +LEVAQUIN500 MG ORAL; +MULTIVITAMINS1 EAC8 ORAL
[2018-08-29] MEDS ORDERED: IRON325 M1 PO (12:52)
[2018-08-29] MEDS ORDERED: ZOFRAN4 M3 ORAL (12:52)
[2018-08-29 13:30] LABS: HEMATOCRIT 33.5 % (37.0-47.0); HEMOGLOBIN 11.4 G/DL (12.0-16.0); MEAN CORPUSCULAR VOLUME 99 FL (80-99); PLATELET COUNT 698 K/UL (150-450); RED BLOOD COUNT 3.37 M/UL (4.20-5.40); RED CELL DISTRIBUTION WIDTH 14.2 % (11.6-14.8); WHITE BLOOD COUNT 18.9 K/UL (4.8-10.8)
--- NOTE | 2018-08-29 13:32 | Diagnostic Imaging Report ---
EXAM: XR Chest, 1 View CLINICAL HISTORY: CP TECHNIQUE: Frontal view of the chest. COMPARISON: Chest x-ray 07/30/18 FINDINGS: Lungs: Worsening bilateral airspace opacities/consolidations, worse in the right lung. Pleural space: Worsening bilateral pleural effusions, worse on the right. No pneumothorax. Heart: Cardiomegaly. Mediastinum: Unremarkable. Bones/joints: Unremarkable. IMPRESSION: 1. Worsening bilateral airspace opacities/consolidations, worse in the right lung. 2. Worsening bilateral pleural effusions, worse on the right.
--- NOTE | 2018-08-29 13:35 | Emergency Room Report ---
History of Present Illness General Chief Complaint: General Complaint Source: Patient, Medical Record Present Illness HPI Unfortunate patient with multiple medical conditions Including metastatic carcinoma Pigtail pleural drains along with gallbladder fossa drain Patient has been noticed to be having decreased oral intake appear to be more dehydrated Patient has undergone chemotherapy Appears to have terminal carcinoma Daughter also reports that the jaundice is ongoing Denies any vomiting or diarrhea however patient has been very weak and essentially not tolerating any oral intake Allergies: Coded Allergies: No Known Allergies (Unverified , 06/17/18) Patient History Past Medical History: see triage record Pertinent Family History: none Reviewed Nursing Documentation: PMH: Agreed; PSxH: Agreed Nursing Documentation-PMH Past Medical History: No History, Except For Hx Cardiac Problems: Yes - pleural effusion Hx Hypertension: Yes - Hyponatremia Hx Cancer: Yes - Ovarian CA Hx Gastrointestinal Problems: Yes - Acute cholecystitis, Cirrhosis, cholecystitis Hx Neurological Problems: Yes - Muscle weakness Review of Systems All Other Systems: negative except mentioned in HPI Physical Exam Vital Signs Date Time Temp Pulse Resp B/P (MAP) Pulse Ox O2 Delivery O2 Flow Rate FiO2 08/29/18 12:24 97.0 97 18 88/56 97 Nasal Cannula Sp02 EP Interpretation: reviewed, normal General Appearance: cachetic, thin Head: normocephalic, atraumatic Eyes: bilateral eye PERRL, bilateral eye EOMI, bilateral eye other - Scleral icterus ENT: normal pharynx, dry mucus membranes Neck: supple Respiratory: no retraction, no accessory muscle use, crackles - Bilaterally, wheezing Cardiovascular #1: regular rate, rhythm Gastrointestinal: other - Some mild abdominal distention previous abdominal surgical scars mild dehiscence of the mid point pigtail in the right upper flank , drain in the upper chest, Genitourinary: no CVA tenderness Musculoskeletal: other - Week however no obvious focal deficit Neurologic: alert, oriented x3, responsive Skin: jaundice Lymphatic: no adenopathy Medical Decision Making Diagnostic Impression: Primary Impression: Cancer, metastatic Additional Impressions: Abdominal pain Cirrhosis Dehydration effusions ER Course Multiple differentials and consideration patient had recent extensive hospitalization and records are reviewed as well Extensive blood work with imaging initiated Patient's x-ray shows continuing and slightly worsening bilateral effusions White blood cell count is elevated and patient's kidney function also somewhat worsening Patient placed on broad spectrum antibiotics and requires further inpatient care Labs Test 08/29/18 13:15 08/29/18 13:32 08/29/18 15:30 White Blood Count 18.9 K/UL (4.8-10.8) Red Blood Count 3.37 M/UL (4.20-5.40) Hemoglobin 11.4 G/DL (12.0-16.0) Hematocrit 33.5 % (37.0-47.0) Mean Corpuscular Volume 99 FL (80-99) Mean Corpuscular Hemoglobin 33.9 PG (27.0-31.0) Mean Corpuscular Hemoglobin Concent 34.1 G/DL (32.0-36.0) Red Cell Distribution Width 14.2 % (11.6-14.8) Platelet Count 698 K/UL (150-450) Mean Platelet Volume 4.8 FL (6.5-10.1) Neutrophils (%) (Auto) % (45.0-75.0) Lymphocytes (%) (Auto) % (20.0-45.0) Monocytes (%) (Auto) % (1.0-10.0) Eosinophils (%) (Auto) % (0.0-3.0) Basophils (%) (Auto) % (0.0-2.0) Differential Total Cells Counted 100 Neutrophils % (Manual) 88 % (45-75) Lymphocytes % (Manual) 2 % (20-45) Monocytes % (Manual) 7 % (1-10) Eosinophils % (Manual) 0 % (0-3) Basophils % (Manual) 0 % (0-2) Myelocytes % 2 % (0-0) Band Neutrophils 1 % (0-8) Platelet Estimate Increased Platelet Morphology Normal Macrocytosis 1+ Sodium Level 128 MMOL/L (136-145) Potassium Level 4.0 MMOL/L (3.5-5.1) Chloride Level 93 MMOL/L (98-107) Carbon Dioxide Level 21 MMOL/L (21-32) Anion Gap 15 mmol/L (5-15) Blood Urea Nitrogen 47 mg/dL (7-18) Creatinine 1.7 MG/DL (0.55-1.30) Estimat Glomerular Filtration Rate mL/min (>60) Glucose Level 100 MG/DL (74-106) Lactic Acid Level 2.80 mmol/L (0.4-2.0) 2.30 mmol/L (0.66-2.22) Calcium Level 8.2 MG/DL (8.5-10.1) Total Bilirubin 29.1 MG/DL (0.2-1.0) Direct Bilirubin 24.0 MG/DL (0.0-0.3) Aspartate Amino Transf (AST/SGOT) 500 U/L (15-37) Alanine Aminotransferase (ALT/SGPT) 221 U/L (12-78) Alkaline Phosphatase > 2000 U/L (46-116) Total Creatine Kinase 88 U/L (26-308) Creatine Kinase MB 1.1 NG/ML (0.0-3.6) Creatine Kinase MB Relative Index 1.2 Troponin I 0.002 ng/mL (0.000-0.056) Pro-B-Type Natriuretic Peptide 1805 pg/mL (0-125) Total Protein 4.6 G/DL (6.4-8.2) Albumin 1.4 G/DL (3.4-5.0) Globulin 3.2 g/dL Albumin/Globulin Ratio 0.4 (1.0-2.7) Lipase 85 U/L (73-393) Urine Color Dulce Urine Appearance Slightly cloudy Urine pH 6.5 (4.5-8.0) Urine Specific [place] 1.020 (1.005-1.035) Urine Protein 3+ (NEGATIVE) Urine Glucose (UA) Negative (NEGATIVE) Urine Ketones 1+ (NEGATIVE) Urine Blood 5+ (NEGATIVE) Urine Nitrite Negative (NEGATIVE) Urine Bilirubin 3+ (NEGATIVE) Urine Ictotest Positive (NEGATIVE) Urine Urobilinogen 4 MG/DL (0.0-1.0) Urine Leukocyte Esterase 1+ (NEGATIVE) Urine RBC 30-40 /HPF (0 - 2) Urine WBC 2-4 /HPF (0 - 2) Urine Squamous Epithelial Cells Few /LPF (NONE/OCC) Urine Bacteria Few /HPF (NONE) Rhythm Strip Diag. Results EP Interpretation: yes Rate: 88 Rhythm: NSR, no PVC's, no ectopy Chest X-Ray Diagnostic Results Chest X-Ray Diagnostic Results : Chest X-Ray Ordered: Yes # of Views/Limited/Complete: 1 View Indication: Shortness of Breath EP Interpretation: Yes Interpretation: no pneumothorax, other - Bilateral worsening effusions, increased significantly in the right side, borderline cardiomegaly no acute bony abnormalities Impression: Other - Worsening effusions Electronically Signed by: Vane Fernandez DO Last Vital Signs Date Time Temp Pulse Resp B/P (MAP) Pulse Ox O2 Delivery O2 Flow Rate FiO2 08/29/18 12:24 97.0 97 18 88/56 97 Nasal Cannula Status: improved Disposition: ADMITTED INPATIENT Condition: Serious Vane Fernandez DO Aug 29, 2018 13:35
[2018-08-29 13:42] LABS: ANION GAP 15 mmol/L (5-15); BLOOD UREA NITROGEN 47 mg/dL (7-18); CALCIUM 8.2 MG/DL (8.5-10.1); CARBON DIOXIDE 21 MMOL/L (21-32); CHLORIDE 93 MMOL/L (98-107); CREATININE 1.7 MG/DL (0.55-1.30); SODIUM 128 MMOL/L (136-145)
[2018-08-29 13:44] VITALS: BP 88/56
[2018-08-29 13:57] LABS: APPEARANCE,URINE SLIGHTLY CLOUDY; BILIRUBIN, URINE 3+ (NEGATIVE); GLUCOSE, URINE (UA) NEGATIVE (NEGATIVE); KETONES,URINE 1+ (NEGATIVE); LEUKOCYTE ESTERASE ,URINE 1+ (NEGATIVE); NITRITE,URINE NEGATIVE (NEGATIVE); PH,URINE 6.5 (4.5-8.0); PROTEIN,URINE 3+ (NEGATIVE); UROBILINOGEN,URINE 4 MG/DL (0.0-1.0)
[2018-08-29 14:00] LABS: COLOR,URINE AMBER
[2018-08-29 14:08] LABS: ALANINE AMINOTRANSFERASE 221 U/L (12-78); ALBUMIN 1.4 G/DL (3.4-5.0); ALKALINE PHOSPHATASE > 2000 U/L (46-116); ASPARTATE AMINO TRANSFERASE 500 U/L (15-37); BILIRUBIN,TOTAL 29.1 MG/DL (0.2-1.0); CKMB 1.1 NG/ML (0.0-3.6); CREATINE KINASE 88 U/L (26-308)
[2018-08-29] MEDS ORDERED: cefTRIAXone 1 GM in NS 55 ML IVPB ONE (14:15)
[2018-08-29 14:25] LABS: ALBUMIN/GLOBULIN RATIO 0.4 (1.0-2.7)
[2018-08-29 14:46] VITALS: BP 94/58
[2018-08-29 15:46] VITALS: BP 95/62
[2018-08-29 15:50] VITALS: BP 99/69
[2018-08-29] MEDS: Morphine Sulfate 2mg/ml Inj(IV/IM USE ONLY) IVP PRN ×2 (17:28→21:53)
[2018-08-29] MEDS ORDERED: Eliquis 2.5mg tablet ORAL SCH (18:00)
[2018-08-29 20:00] VITALS: BP 91/63
[2018-08-29] MEDS: Piperacillin/Tazobactam 3.375 GM in NS 110 ML IVPB SCH (20:13)
[2018-08-29] MEDS: MS Contin 15mg tab ORAL SCH (20:14)
[2018-08-30] VITALS: BP 92/63
[2018-08-30 04:00] VITALS: BP 90/62
[2018-08-30] MEDS: Morphine Sulfate 2mg/ml Inj(IV/IM USE ONLY) IVP PRN (05:24)
[2018-08-30] MEDS: Piperacillin/Tazobactam 3.375 GM in NS 110 ML IVPB SCH ×2 (05:24→13:14)
[2018-08-30 08:00] VITALS: BP 135/89
[2018-08-30] MEDS: MS Contin 15mg tab ORAL SCH (08:55)
[2018-08-30 12:00] VITALS: BP 114/54
[2018-08-30] MEDS ORDERED: Sodium Bicarbonate 50 ML in 1/2 NS 1000ml 1,000 ML IV SCH (12:30)
--- NOTE | 2018-08-30 14:30 | History and Physical Report ---
DATE OF ADMISSION: 08/29/2018 CHIEF COMPLAINT: Cholangitis and sepsis with shock. HISTORY OF PRESENT ILLNESS: The patient is an unfortunate elderly female. She has a history of metastatic ovarian cancer. She has a history of chronic cholecystitis, recurrent pleural effusion. She was transferred from a [facility] facility with complaints of lethargy, altered mentation, hypotension, and shortness of breath. On evaluation in the emergency room, the patient's laboratories were significant for white count of 20,000, lactic acid level of 3, a total bilirubin of 29, AST of 500, ALT of 221. The patient has been pancultured. She received several IV fluid boluses and is now admitted. She has advanced directive for DNR with only selective treatment. The patient is unable to provide any additional history. There are no reports of any fevers or chills. No nausea. No vomiting. No diarrhea. It is unclear the last time the patient's PleurX was accessed. PHYSICAL EXAMINATION: VITAL SIGNS: Temperature 97.2, pulse 101, respirations 16, and blood pressure 90/62. GENERAL: The patient is chronically thin, ill-appearing female. She is jaundiced and poorly responsive. NECK: Supple. HEART: Regular rate and rhythm. LUNGS: Significant for diminished breath sounds bilaterally. ABDOMEN: Soft, nontender, nondistended. EXTREMITIES: Without clubbing or cyanosis. LABORATORY AND DIAGNOSTIC DATA: White count 19, hemoglobin 11. Bilirubin of 29. UA showed 2 to 4 wbc's. Chest x-ray showed bilateral infiltrates and pleural effusions. ASSESSMENT: This is an unfortunate female with a history of metastatic ovarian cancer, admitted with complaints of sepsis secondary to pneumonia, cholangitis, shortness of breath due to the above as well as pleural effusions. PLAN: IV fluids, broad-spectrum antibiotics. We access PleurX catheter. Follow up pending cultures. Cardiology, Pulmonary, Infectious Disease, and Surgical consultations were obtained. The patient's condition is extremely poor. We will discuss with family members, possibly hospice care. Rashad Garcia M.D. DR: AMBROCIO JOB#: [id number] CC:
--- NOTE | 2018-08-30 15:03 | Consultation ---
History of Present Illness General Date patient seen: Aug 30, 2018 Reason for Hospitalization: General Complaint Present Illness HPI 72F well known to me from prior admissions. I have been managing her cholecystostomy tube for some time now. Was in intermediate and doing unwell [place] [facility] [place]. leukocytosis, tachy, lft's worsening. still with tube in place and drainage. last admission radiology reports with sasha/liver abnormality and not safe to remove tube. family at bedside and state she has been declining. more jaundice. abdominal pain. discomfort. not taking in much oral intake. Allergies: Coded Allergies: No Known Allergies (Unverified , 06/17/18) Medication History Scheduled Apixaban (Eliquis), 2.5 MG PO BID, (Reported) Ferrous Sulfate (Iron), 325 MG PO BID, (Reported) Levofloxacin* (Levaquin*), 250 MG ORAL DAILY, (Reported) Morphine HCl (Morphine Sulfate ER), 15 MG ORAL BID, (Reported) Multivitamin With Minerals (Multivitamins With Minerals*), 1 TAB ORAL DAILY, ( Reported) Scheduled PRN Hydrocodone Bit/Acetaminophen 5-325* ([place] 5-325*), Unknown Dose ORAL Q4H PRN for For Pain, (Reported) Ondansetron* (Zofran*), 4 MG ORAL Q6H PRN for Nausea & Vomiting, (Reported) Patient History History Provided By: Patient, Medical Record, PMD Healthcare decision maker Resuscitation status Do Not Resuscitate Advanced Directive on File Past Medical/Surgical History Past Medical/Surgical History: (1) Cholecystitis (2) Hyponatremia (3) Hypoalbuminemia (4) Lower extremity edema (5) Jaundice (6) Episode of generalized weakness (7) Dehydration (8) Cirrhosis (9) Abdominal pain (10) Cancer, metastatic Review of Systems Review of Symptoms General ROS: no weight loss or fever Psychological ROS: no depression or mood changes, no memory loss Ophthalmic ROS: no visual changes or eye irritation ENT ROS: no nasal congestion, hearing loss, dizziness Allergy and Immunology ROS: no allergic symptoms or urticaria Hematological and Lymphatic ROS: no swollen glands, unusual bleeding or bruising Endocrine ROS: no polyuria, polydipsia, weight changes, temperature intolerance Respiratory ROS: no cough, shortness of breath, or wheezing Cardiovascular ROS: no chest pain or dyspnea on exertion Gastrointestinal ROS: abdominal pain, no bright red blood in stool. Musculoskeletal ROS: no myalgias or arthralgias Neurological ROS: no TIA or stroke symptoms Dermatological ROS: no new or changing skin lesions, rashes or pruritis Physical Exam Physical Exam General appearance: alert, cooperative, jaundice no distress, appears stated age Head: Normocephalic, without obvious abnormality, atraumatic Eyes: conjunctivae/corneas clear. PERRL, EOM's intact. Fundi benign Throat: Lips, mucosa, and tongue normal. Teeth and gums normal Neck: supple, symmetrical, trachea midline, no adenopathy, thyroid: not enlarged, symmetric, no tenderness/mass/nodules, no carotid bruit and no JVD Lungs: clear to auscultation bilaterally Heart: regular rate and rhythm, S1, S2 normal, no murmur, click, rub or gallop Abdomen: hard, tube in place with murky serous output, tender. Bowel sounds normal. Extremities: extremities normal, atraumatic, no cyanosis or edema Pulses: 2+ and symmetric Skin: Skin color, texture, turgor normal. No rashes or lesions Neurologic: Grossly normal Last 24 Hour Vital Signs Date Time Temp Pulse Resp B/P (MAP) Pulse Ox O2 Delivery O2 Flow Rate FiO2 08/30/18 12:00 96.2 80 16 114/54 (74) 96 08/30/18 12:00 82 08/30/18 09:00 Nasal Cannula 2.0 08/30/18 08:00 96.4 69 17 135/89 (104) 95 08/30/18 08:00 89 08/30/18 04:00 97.2 101 16 90/62 (71) 92 08/30/18 03:54 97 08/30/18 00:00 97.4 100 16 92/63 (73) 92 08/29/18 23:49 101 08/29/18 21:00 Nasal Cannula 2.0 08/29/18 20:00 97.4 104 16 91/63 (72) 91 08/29/18 19:22 98 08/29/18 16:51 Nasal Cannula 2.0 08/29/18 16:26 96 08/29/18 15:50 97.8 98 20 99/69 (79) 97 08/29/18 15:50 97.4 92 16 95/64 98 Nasal Cannula 2.0 08/29/18 15:46 97.8 92 16 95/62 95 Nasal Cannula 2.0 Intake and Output 08/29/18 08/30/18 19:00 07:00 Intake Total 1715 ml 910.00 ml Balance 1715 ml 910.00 ml Intake IV Total 1715 ml 910.00 ml Laboratory Tests Test 08/29/18 15:30 08/30/18 08:12 Lactic Acid Level 2.30 mmol/L (0.66-2.22) H Arterial Blood pH 7.305 (7.350-7.450) Arterial Blood Partial Pressure CO2 24.3 mmHg (35.0-45.0) *L Arterial Blood Partial Pressure O2 62.9 mmHg (75.0-100.0) L Arterial Blood HCO3 11.8 mmol/L (22.0-26.0) *L Arterial Blood Oxygen Saturation 89.5 % (95-100) *L Arterial Blood Base Excess -12.8 (-2-2) *L Suman Test Positive Height (Feet): 5 Height (Inches): 1.00 Weight (Pounds): 122 Medications Current Medications Medications (Trade) Dose Ordered Sig/Susana Route PRN Reason Start Time Stop Time Status Last Admin Dose Admin Metronidazole 100 ml @ 100 mls/hr Q8HR@0200,1000,1800 IVPB 08/30/18 10:00 09/06/18 09:59 08/30/18 09:37 Morphine Sulfate (MS Contin) 15 mg Q12HR ORAL 08/29/18 21:00 09/05/18 20:59 08/29/18 20:14 Morphine Sulfate (Morphine Sulfate) 2 mg Q4H PRN IVP Breakthrough Pain 08/29/18 16:30 09/05/18 16:29 08/30/18 05:24 Ondansetron HCl (Zofran) 4 mg Q4H PRN IVP Nausea & Vomiting 08/29/18 16:45 09/28/18 16:44 Piperacillin Sod/ Tazobactam Sod 3.375 gm/Sodium Chloride 110 ml @ 27.5 mls/hr EVERY 8 HOURS IVPB 08/29/18 20:00 09/03/18 19:59 08/30/18 13:14 Sodium Bicarbonate 50 ml/ Sodium Chloride 1,050 ml @ 85 mls/hr [id number] IV 08/30/18 12:30 09/29/18 12:29 08/30/18 12:41 Assessment/Plan Problem List: (1) Episode of generalized weakness ICD Codes: R53.1 - Weakness SNOMED: 58484467 (2) Dehydration ICD Codes: E86.0 - Dehydration SNOMED: 44823979 (3) Cirrhosis ICD Codes: K74.60 - Unspecified cirrhosis of liver SNOMED: 54369414 (4) Abdominal pain Assessment & Plan: 72F with metastatic end stage ovarian tumor. prior cholecystitis requiring cholecystectomy tube. since worsening condition with liver dysfunction. now bili in the s. has been on hospice care c/o abd pain some itching discomfort tube still in place and draining I had a long discussion with patient and family at bedside. I have known her daughter who is very involved in her care. we have discussed care plans and goals of care. they would like her to remain on hospice care. we have discussed tube and understand that not ready to be removed and she may have it till the end. no acute surgical plans during this admission. of note patient seen yesterday and earlier. since at this time of writing this note I have been informed patient has passed. I spoke with family at bedside after he passing and gave my condolences. thank you for allowing me to participate in her care. ICD Codes: R10.9 - Unspecified abdominal pain SNOMED: 55444168 (5) Cancer, metastatic ICD Codes: C79.9 - Secondary malignant neoplasm of unspecified site SNOMED: 336833521 (6) Cholecystitis ICD Codes: K81.9 - Cholecystitis, unspecified SNOMED: 29025928 (7) Hyponatremia ICD Codes: E87.1 - Hypo-osmolality and hyponatremia SNOMED: 83024075 (8) Jaundice ICD Codes: R17 - Unspecified jaundice SNOMED: 06444687 (9) Hypoalbuminemia ICD Codes: E88.09 - Other disorders of plasma-protein metabolism, not elsewhere classified SNOMED: 398685541 (10) Lower extremity edema ICD Codes: R60.0 - Localized edema SNOMED: 491301192 Rich Kiran Aug 30, 2018 15:03
[2018-08-30] MEDS ORDERED: Tubing IV Secondary IV ONE (15:13)
[2018-08-30] MEDS ORDERED: NS 275ml ONE (15:13)
--- NOTE | 2018-08-31 03:30 | Progress Note ---
DATE: 08/30/2018 CARDIOLOGY PROGRESS NOTE SUBJECTIVE: The patient remains withdrawn and lethargic. She has been started on antimicrobials. She is on IV fluids. She remains hypotensive. OBJECTIVE: VITAL SIGNS: Blood pressure 90/62, pulse rate 101, respiratory rate 16, afebrile. HEENT: Temporal wasting. LUNGS: Diminished breath sounds. PleurX catheter noted. HEART: Regular rhythm and rate. Normal S1, S2. ABDOMEN: Distended. Positive ascites. Cholecystostomy catheter noted. EXTREMITIES: Trace edema. Muscle atrophy. LABORATORY DATA: Repeat laboratory pending. IMPRESSION: 1. Metastatic ovarian carcinoma. 2. Malignant effusions. 3. Chronic cholecystitis. 4. Severe protein-calorie malnutrition. 5. Volume overload. 6. Jaundice. 7. Sepsis with shock. PLAN: 1. DNR. 2. Volume support by IV route. 3. Broad-spectrum empiric antimicrobials. 4. Drain PleurX catheter. 5. Continue cholecystostomy drainage. 6. Few options available. Faisal Rollins M.D. DR: Leeroy JOB#: [id number] CC:
--- NOTE | 2018-08-31 04:00 | Consultation ---
DATE OF CONSULTATION: 08/29/2018 CARDIOLOGY CONSULTATION CONSULTING PHYSICIAN: Faisal Rollins M.D. REQUESTING PHYSICIAN: Rashad Garcia M.D. REASON FOR CONSULTATION: Volume overload. HISTORY OF PRESENT ILLNESS: This 72-year-old [place] female has a known history of metastatic ovarian cancer with chronic cholecystitis and pleural effusions for which she has a cholecystostomy tube and PleurX catheter tube in place. She was increasingly withdrawn, lethargic, and hypotensive with more shortness of breath than usual and was transferred to the emergency room for evaluation. She has been persistently jaundiced for the last month. She has had several biliary stents placed as recently as two weeks ago. PAST MEDICAL HISTORY: Metastatic ovarian carcinoma, malignant pleural effusions, chronic cholecystitis, type 2 diabetes mellitus, recurring hyponatremia, metastatic disease to the liver with cirrhosis, and chronic diastolic congestive heart failure. ALLERGIES: None known. MEDICATIONS: Reviewed and reconciled. SOCIAL HISTORY: Negative for smoking, alcohol, or substance abuse. REVIEW OF SYSTEMS: Otherwise not obtainable, however, review of records is performed x20 minutes. Pertinent data outlined above. The patient was hospitalized here several weeks ago. She had an ERCP with stent replacement and imaging studies revealed chronic cholecystitis requiring persistence of the cholecystostomy tube. The patient does have advanced directives for DNR. PHYSICAL EXAMINATION: VITAL SIGNS: Blood pressure 88/56, pulse 97, respiratory rate 18, afebrile, and oxygen saturation 97% on 2 L. GENERAL: Jaundiced, withdrawn, and lethargic. LUNGS: Diminished breath sounds. HEENT: Dry mucous membranes. HEART: Regular rhythm. Rapid rate. Normal S1 and S2. ABDOMEN: Distended. Surgical scar is noted. There is some ascites. Cholecystostomy tube and PleurX catheter sites are noted. Muscle atrophy is noted distally. LABORATORY AND DIAGNOSTIC DATA: Chest x-ray reveals bilateral effusions. White count 18.9 and hemoglobin 11.4. Lactic acid 2.8. BUN 47, creatinine 1.7, sodium 128, potassium 4, and bicarbonate 21. Alkaline phosphatase was over 2000. Pro-natriuretic peptide 1800. Albumin 1.4. IMPRESSION: 1. Sepsis. 2. Metastatic ovarian carcinoma with biliary obstruction and chronic cholecystitis. 3. Severe protein-calorie malnutrition. 4. Lactic acidosis. 5. Shock. 6. Hyponatremia. 7. Hypochloremia. 8. Volume overload due to liver disease. 9. Critical and grave. PLAN: 1. Broad-spectrum antimicrobials. 2. Volume resuscitation. 3. Continue DNR/DNI. 4. GI and surgical consultations, although options are limited based on recent workup. 5. DVT prophylaxis. Faisal Rollins M.D. DR: ANDREA JOB#: [id number] CC:
--- NOTE | 2018-08-31 11:30 | Discharge Summary ---
Discharge Summary Discharge Summary _ SUMMARY DATE OF ADMISSION: 08/29/2018 DATE OF EXPIRATION: 08/30/2018 REASON FOR ADMISSION: 72 years old female with past medical history of metastatic ovarian cancer, recurrent pleural effusion, chronic cholecystitis, was transferred from [facility] facility due to altered mentation, hypotension and shortness of breath. No reported fever and chills. No nausea , no vomiting, no diarrhea. Patient had advanced directive for DNR /DNI status with selective treatment. Upon evaluation in the emergency department laboratory workup revealed leukocytosis WBC 20, lactic acid 3, total bilirubin 29, direct bili 24. AST 500, ALT 221. Alkaline phosphatase over 2000. ProBNP - 1805. Sodium 128 . Chloride 93. BUN 47, creatinine 1.7. Chest x-ray demonstrated worsening bilateral airspace opacities/consolidation, worse in the right lung. Worsening bilateral pleural effusion worse on the right. In ED patient received fluid challenge , pancultured , and started on IV antibiotic. Patient was admitted for further management. CONSULTANTS: sericulture teacher surgery Dr. Kiran [facility] COURSE: Patient was admitted to telemetry floor and provided with volume resuscitation. Patient started on IV fluids and broad-spectrum antibiotic for probable pneumonia. Pleurx catheter was assessed and drained. Dispatcher Clerk and general surgeon followed. Patient condition was extremely poor. Grave prognosis was discussed extensively with the family members . Family reaffirmed DNR/DNI status with limited interventions. Pain management was addressed. Supplemental oxygen provided as needed to keep pulse oximetry above 92%. Pulmonary toilet provided as needed. Hemodynamic status was closely monitored . Blood pressure was supported with IV fluids. Cholecystostomy drainage continued Troponin was negative. DVT prophylaxis provided Surgeon seen and evaluated patient. Patient with chronic cholecystitis , requiring cholecystectomy tube, , which was in place, draining. Output was closely monitored . Patient condition significantly worsened with liver dysfunction and bilirubin in 20s. No acute surgical interventions, given DNR/DNI status and family wishes. Patient condition continue to deteriorate. Patient was pronounced on 08/30/18 at 13:45. Cause of : cardiopulmonary arrest. FINAL DIAGNOSES: Sepsis with shock Metastatic ovarian carcinoma with biliary obstruction and chronic cholecystitis Lactic acidosis Malignant pleural effusions Probably pneumonia Hyponatremia and hypochloremia Severe protein calorie malnutrition Dehydration Cirrhosis Acute kidney injury/acute renal failure I have been assigned to dictate discharge summary for this account. I was not involved in the patient's management. Maya Marley NP Aug 31, 2018 11:30
--- NOTE | 2018-09-04 16:02 | Cardiology Report ---
APPROVED REPORT EKG Measurement Heart [id number] Normal sinus rhythm Low voltage QRS Cannot rule out Anterior infarct, age undetermined Abnormal ECG
== END 2018-08-30 15:15 | disposition expired | DRG 871 ==
LOC: EDBD 12:28 → EMR 13:34 → EDBEDREQ 14:30 → 2E 17:10
DX: A41.9 Sepsis, unspecified organism (principal); R65.21 Severe sepsis with septic shock; J18.9 Pneumonia, unspecified organism; E43 Unspecified severe protein-calorie malnutrition; K83.1 Obstruction of bile duct; C78.7 Secondary malignant neoplasm of liver and intrahepatic bile duct; C56.9 Malignant neoplasm of unspecified ovary; J91.0 Malignant pleural effusion; E87.1 Hypo-osmolality and hyponatremia; N17.9 Acute kidney failure, unspecified; I50.32 Chronic diastolic (congestive) heart failure; E86.0 Dehydration; E87.8 Other disorders of electrolyte and fluid balance, not elsewhere classified; K74.60 Unspecified cirrhosis of liver; K81.1 Chronic cholecystitis; E11.9 Type 2 diabetes mellitus without complications; E87.79 Other fluid overload; Z66 Do not resuscitate
CPT/HCPCS: 36415; 36600; 71045; 80053; 81003; 82248; 82550; 82553; 82803; 83605; 83690; 83880; 84484; 85007; 85025; 87040; 87081; 93005; 96361; 96365; 99285